=== PATIENT | male | born 1940 | race Caucasian/White ===

== ENCOUNTER 2016-08-28 05:46 | Inpatient (IN) | payer MEDICARE ==
[2016-08-28] MEDS ORDERED: METHYLPREDNISOLONE INJ 125 MG/2 ML SDV IV ONE (06:00)
[2016-08-28] MEDS ORDERED: IPRATROPIUM/ALBUTEROL 0.5-2.5 MG/3 ML AMPUL NEB ONE ×2 (06:00→07:26)
[2016-08-28] MEDS: ALBUTEROL SULFATE 0.083% NEB 2.5 MG/3 ML AMPUL NEB SCH ×2 (06:09→06:10)
--- NOTE | 2016-08-28 07:29 | ER Document Report ---
ED General - General Chief Complaint: Hip Injury Stated Complaint: FALL/HIP PAIN Mode of Arrival: Medic Information source: Patient Notes: 76-year-old male presents with complaints of right hip pain. Patient notes he had a vivid dream fell out of bed and landed on his hip. EMS noted rotation and shortening of the leg Patient admits to chronic smoking denies any new onset shortness of breath TRAVEL OUTSIDE OF THE [place] IN LAST 30 DAYS: No - HPI Onset: Just prior to arrival Onset/Duration: Sudden Quality of pain: Sharp Severity: Mild Pain Level: Denies Associated symptoms: Other Exacerbated by: Movement Relieved by: Denies Similar symptoms previously: No Recently seen / treated by doctor: No - Related Data Allergies/Adverse Reactions: ciprofloxacin [From Cipro] Allergy (Verified 08/30/14 11:49) Past Medical History - Social History Smoking Status: Current Every Day Smoker Cigarette use (# per day): Yes Chew tobacco use (# tins/day): No Smoking Education Provided: No Family History: Reviewed & Not Pertinent - Past Medical History Cardiac Medical History: Reports: Hx Congestive Heart Failure, Hx Hypercholesterolemia, Hx Hypertension Neurological Medical History: Denies: Hx Seizures Renal/ Medical History: Reports: Hx End Stage Renal Disease Psychiatric Medical History: Denies: Hx Depression Infectious Medical History: Reports: Hx C-Diff Past Surgical History: Reports: Hx Cardiac Catheterization, Hx Cardiac Surgery - CABG, Hx Genitourinary Surgery - urostomy, Hx Vascular Surgery - AAA repair - Immunizations Immunizations up to date: Yes Hx Diphtheria, Pertussis, Tetanus Vaccination: Yes Hx Pneumococcal Vaccination: 04/17/14 Review of Systems - Review of Systems Notes: REVIEW OF SYSTEMS: CONSTITUTIONAL : Denies fever, chills, or sweats. Denies recent illness. EENT: Denies eye, ear, throat, or mouth pain or symptoms. Denies nasal or sinus congestion or discharge. Denies throat, tongue, or mouth swelling or difficulty swallowing. CARDIOVASCULAR: Denies chest pain. Denies palpitations or racing or irregular heart beat. Denies ankle edema. RESPIRATORY: Denies cough, cold, or chest congestion. Denies shortness of breath, difficulty breathing, or wheezing. GASTROINTESTINAL: Denies abdominal pain or distention. Denies nausea, vomiting , or diarrhea. Denies blood in vomitus, stools, or per rectum. Denies black, tarry stools. Denies constipation. GENITOURINARY: Denies difficulty urinating, painful urination, burning, frequency, blood in urine, or discharge. MUSCULOSKELETAL: Admits to right hip pain SKIN: Denies rash, lesions or sores. HEMATOLOGIC : Denies easy bruising or bleeding. LYMPHATIC: Denies swollen, enlarged glands. NEUROLOGICAL: Denies confusion or altered mental status. Denies passing out or loss of consciousness. Denies dizziness or lightheadedness. Denies headache. Denies weakness or paralysis or loss of use of either side. Denies problems with gait or speech. Denies sensory loss, numbness, or tingling. Denies seizures. PSYCHIATRIC: Denies anxiety or stress. Denies depression, suicidal ideation, or homicidal ideation. ALL OTHER SYSTEMS REVIEWED AND NEGATIVE. Dictation was performed using [employer] [place] voice recognition software PHYSICAL EXAMINATION: GENERAL: Well-appearing, well-nourished and in no acute distress. HEAD: Atraumatic, normocephalic. EYES: Pupils equal round and reactive to light, extraocular movements intact, sclera anicteric, conjunctiva are normal. ENT: Nares patent, oropharynx clear without exudates. Moist mucous membranes. NECK: Normal range of motion, supple without lymphadenopathy LUNGS: Breath sounds clear to auscultation bilaterally and equal. No wheezes rales or rhonchi. HEART: Regular rate and rhythm without murmurs ABDOMEN: Soft, nontender, nondistended abdomen. No guarding, no rebound. No masses appreciated. Musculoskeletal: Right lower extremity is externally rotated shortened tenderness with palpation pulses intact NEUROLOGICAL: Cranial nerves grossly intact. Normal speech, normal gait. Normal sensory, motor exams PSYCH: Normal mood, normal affect. SKIN: Warm, Dry, normal turgor, no rashes or lesions noted. Physical Exam - Vital signs Vitals: Temp Pulse Resp BP Pulse Ox 98.3 F 83 18 149/63 H 88 L 08/28/16 06:00 08/28/16 06:00 08/28/16 06:00 08/28/16 06:00 08/28/16 06:00 Course - Re-evaluation Re-evalutation: 08/28/16 07:29 Patient has probable hip fracture, x-ray results pending at this time. He was noted to be satting 80% on room air, patient notes that this is normal for him, he will be given duo nebs and reevaluated 08/28/16 07:55 08/28/16 08:11 Hip fracture is noted, patient will be admitted to hospitalist service given comorbidities - Vital Signs Vital signs: Temp Pulse Resp BP Pulse Ox 98.3 F 83 18 149/63 H 88 L 08/28/16 06:00 08/28/16 06:00 08/28/16 06:00 08/28/16 06:00 08/28/16 06:00 - Diagnostic Test Radiology reviewed: Image reviewed, Reports reviewed Discharge - Discharge Clinical Impression: Chronic kidney disease, stage IV (severe) Fracture of hip Qualifiers: Encounter type: initial encounter Fracture type: closed Laterality: right Qualified Code(s): S72.001A - Fracture of unspecified part of neck of right femur, initial encounter for closed fracture Fall Qualifiers: Encounter type: initial encounter Qualified Code(s): W19.XXXA - Unspecified fall, initial encounter Condition: Stable Disposition: ADMITTED INPATIENT Admitting Provider: Hospitalist Unit Admitted: Telemetry
[2016-08-28] MEDS ORDERED: HYDROMORPHONE HCL INJ/PF 2 MG/ML AMPULE IV ONE (07:54)
[2016-08-28] MEDS ORDERED: ONDANSETRON HCL INJ/PF 4 MG/2 ML SDV IV ONE (08:20)
--- NOTE | 2016-08-28 08:22 | EKG REPORT ---
SEVERITY:- NORMAL ECG - SINUS RHYTHM : Confirmed by: Jessica Oreilly 28-Aug-2016 08:21:35
[2016-08-28 08:27] LABS: ABSOLUTE EOSINOPHILS # (AUTO) 0.1 10^3/uL (0.0-0.6); ABSOLUTE LYMPHOCYTES (AUTO) 0.9 10^3/uL (0.5-4.7); ABSOLUTE MONOCYTES (AUTO) 0.2 10^3/uL (0.1-1.4); ABSOLUTE NEUT (AUTO) 9.7 10^3/uL (1.7-8.2); BASOPHILS % (AUTO) 0.2 % (0-2); EOSINOPHILS % (AUTO) 0.6 % (0-6); HEMATOCRIT 35.4 % (37.9-51.0); HEMOGLOBIN 11.8 g/dL (13.5-17.0); LYMPHOCYTES % (AUTO) 8.1 % (13-45); MEAN CORPUSCULAR HEMOGLOBIN 31.8 pg (27.0-33.4); MEAN CORPUSCULAR HGB CONC 33.4 g/dL (32.0-36.0); MEAN CORPUSCULAR VOLUME 95 fl (80-97); MONOCYTES % (AUTO) 1.9 % (3-13); RED BLOOD COUNT 3.72 10^6/uL (4.35-5.55); RED CELL DISTRIBUTION WIDTH 13.8 % (11.5-14.0); SEGMENTED NEUTROPHILS % (AUTO) 89.2 % (42-78); WHITE BLOOD COUNT 10.9 10^3/uL (4.0-10.5)
[2016-08-28 08:43] LABS: ALANINE AMINOTRANSFERASE 30 U/L (21-72); ALBUMIN 3.8 g/dL (3.5-5.0); ALKALINE PHOSPHATASE 111 U/L (38-126); ANION GAP 13 (5-19); ASPARTATE AMINO TRANSFERASE 20 U/L (17-59); BILIRUBIN,TOTAL 0.5 mg/dL (0.2-1.3); BLOOD UREA NITROGEN 49 mg/dL (7-20); CALCIUM 8.2 mg/dL (8.4-10.2); CARBON DIOXIDE 27 mmol/L (22-30); CHLORIDE 106 mmol/L (98-107); CREATINE KINASE 108 U/L (55-170); CREATININE RESULT 4.67 mg/dL (0.52-1.25); GLUCOSE 165 mg/dL (75-110); POTASSIUM 4.8 mmol/L (3.6-5.0); SODIUM 145.6 mmol/L (137-145); TOTAL PROTEIN 6.6 g/dL (6.3-8.2)
[2016-08-28 08:51] LABS: CREATINE KINASE MB 4.41 ng/mL (<4.55)
[2016-08-28 08:55] LABS: TROPONIN I 0.023 ng/mL
[2016-08-28] MEDS ORDERED: ACETAMINOPHEN 325 MG TABLET PO PRN (10:13)
[2016-08-28] MEDS ORDERED: ONDANSETRON HCL INJ/PF 4 MG/2 ML SDV IV PRN (10:19)
[2016-08-28] MEDS ORDERED: LIDOCAINE 2% INJ-PF (20 MG/ML) 10 ML AMPUL ONE (10:21)
--- NOTE | 2016-08-28 10:36 | PDOC H&P ---
[id number] complains of: Hip pain and right History of Present Illness: TYLOR JIMENEZ is a 76 year old male with history of end-stage renal disease on dialysis, coronary artery disease, hypertension, hyperlipidemia presents to the hospital because of pain in the right hip. Patient was sleeping when he fell out of bed. He woke up with hip pain under right and therefore the patient called his family really was brought to the emergency room and noted fracture on the right hip. The patient's dialysis is every Sunday and Sunday. He denies shortness of breath or chest pain at all. Likewise no chills or fever. He has chronic cough on and off. He takes inhalers at home but was never told he has COPD. Past Medical History Past Medical History: Medication reconciliation pending verification from the patient's pharmacist. Cardiac Medical History: Reports: Congestive Heart Failure, Coronary Artery Disease, Hyperlipidema, Hypertension, Peripheral Vascular Disease Pulmonary Medical History: Reports: Chronic Obstructive Pulmonary Disease (COPD ) - Possible Neurological Medical History: Denies: Seizures Renal/ Medical History: Reports: End Stage Renal Disease - On hemodialysis Sunday and Sunday Malignancy Medical History: Reports: Renal (Kidney) Cancer, Other - Prostate Psychiatric Medical History: Denies: Depression Infectious Medical History: Reports: Clostridium Difficile Past Surgical History Past Surgical History: Reports: Cardiac Catheterization, Vascular Surgery - AAA repair, Other - Nephrostomy tube placement Social History Information Source: Patient Smoking Status: Former Smoker Frequency of Alcohol Use: None Hx Recreational Drug Use: No Drugs: None Hx Prescription Drug Abuse: No Family History Family History: None Parental Family History Reviewed: Yes Children Family History Reviewed: Yes Sibling(s) Family History Reviewed.: Yes Medication/Allergy Allergies/Adverse Reactions: ciprofloxacin [From Cipro] Allergy (Verified 08/30/14 11:49) Review of Systems Constitutional: ABSENT: chills, fever(s), headache(s), night sweats, weight gain , weight loss Eyes: ABSENT: visual disturbances Ears: ABSENT: hearing changes Nose, Mouth, and Throat: ABSENT: mouth pain, sore throat Cardiovascular: ABSENT: chest pain, dyspnea on exertion, edema, orthropnea, palpitations Respiratory: PRESENT: cough - Chronic. ABSENT: hemoptysis Gastrointestinal: ABSENT: abdominal pain, bloating, constipation, diarrhea, hematemesis, hematochezia, melena, nausea, vomiting Genitourinary: PRESENT: other - has nephrostomy bag. ABSENT: dysuria, hematuria Musculoskeletal: ABSENT: joint swelling Integumentary: ABSENT: rash, wounds Neurological: ABSENT: abnormal gait, abnormal speech, confusion, dizziness, focal weakness, syncope Psychiatric: ABSENT: anxiety, depression, homidical ideation, suicidal ideation Endocrine: ABSENT: cold intolerance, heat intolerance, polydipsia, polyphagia, polyuria Hematologic/Lymphatic: ABSENT: easy bleeding, easy bruising Physical Exam Vital Signs: Temp Pulse Resp BP Pulse Ox 98.3 F 83 18 149/63 H 88 L 08/28/16 06:00 08/28/16 06:00 08/28/16 06:00 08/28/16 06:00 08/28/16 06:00 General appearance: PRESENT: no acute distress, cooperative. ABSENT: mild distress, severe distress Head exam: PRESENT: atraumatic, normocephalic Eye exam: PRESENT: conjunctiva pale, EOMI, PERRLA - Sluggish. ABSENT: scleral icterus Ear exam: PRESENT: normal external ear exam. ABSENT: drainage Mouth exam: PRESENT: moist, neck supple, tongue midline Neck exam: ABSENT: carotid bruit, JVD, lymphadenopathy, thyromegaly Respiratory exam: PRESENT: clear to auscultation jenni. ABSENT: rales, rhonchi, wheezes Cardiovascular exam: PRESENT: RRR, +S1, +S2. ABSENT: diastolic murmur, gallop, rubs, systolic murmur Pulses: PRESENT: normal dorsalis pedis pul Vascular exam: PRESENT: normal capillary refill GI/Abdominal exam: PRESENT: normal bowel sounds, soft, other - Nephrostomy bag in place on the right. ABSENT: distended, guarding, mass, organolmegaly, rebound, tenderness Rectal exam: PRESENT: deferred Extremities exam: PRESENT: full ROM. ABSENT: calf tenderness, clubbing, pedal edema Neurological exam: PRESENT: alert, awake, oriented to person, oriented to place , oriented to time, oriented to situation Psychiatric exam: PRESENT: appropriate affect, normal mood. ABSENT: homicidal ideation, suicidal ideation Skin exam: PRESENT: dry, intact, warm. ABSENT: cyanosis, rash Results Impressions: Hip/Pelvis X-Ray 08/28/16 00:00 IMPRESSION: Subcapital fracture right femoral neck. Chest X-Ray 08/28/16 06:00 IMPRESSION: Diffuse bronchitis. Assessment & Plan - Diagnosis (1) Hip fracture Qualifiers: Encounter type: initial encounter Fracture type: closed Laterality : right Qualified Code(s): S72.001A - Fracture of unspecified part of neck of right femur, initial encounter for closed fracture Is this a current diagnosis for this admission?: Yes (2) Thrombocytopenia Is this a current diagnosis for this admission?: Yes (3) Abnormal chest x-ray Is this a current diagnosis for this admission?: Yes (4) Hypoxemia Is this a current diagnosis for this admission?: Yes (5) Anemia, chronic disease Is this a current diagnosis for this admission?: Yes (6) Coronary artery disease Qualifiers: Coronary Disease-Associated Artery/Lesion type: [place] artery [place] vs. transplanted heart: [place] heart Associated angina: without angina Qualified Code(s): I25.10 - Atherosclerotic heart disease of [place] coronary artery without angina pectoris Is this a current diagnosis for this admission?: Yes (7) Gout Qualifiers: Gout site: unspecified site Gout etiology: unspecified cause Chronicity: unspecified Qualified Code(s): M10.9 - Gout, unspecified Is this a current diagnosis for this admission?: Yes (8) Hyperlipidemia Qualifiers: Hyperlipidemia type: unspecified Qualified Code(s): E78.5 - Hyperlipidemia, unspecified Is this a current diagnosis for this admission?: Yes (9) Hypertension Qualifiers: Hypertension type: essential hypertension Qualified Code(s): I10 - Essential (primary) hypertension Is this a current diagnosis for this admission?: Yes (10) PVD (peripheral vascular disease) Is this a current diagnosis for this admission?: Yes (11) History of renal cell cancer Is this a current diagnosis for this admission?: Yes (12) COPD (chronic obstructive pulmonary disease) Qualifiers: COPD type: unspecified COPD Qualified Code(s): J44.9 - Chronic obstructive pulmonary disease, unspecified Is this a current diagnosis for this admission?: Yes - Time Time Spent: 30 to 50 Minutes - Plan Summary Plan Summary: Patient will be admitted to telemetry. We will consult orthopedics for the hip fracture. We will consult nephrology for continued dialysis. I will give the patient bronchodilators, an oral antibiotic. Patient is not symptomatic in terms of acute infection. We will continue to monitor. We will give DVT prophylaxis with heparin and monitor platelet count. Supplemental oxygen will be given. Based on the revised cardiac index the patient's risk for cardiac event is 6.6% due to history of coronary artery disease and renal failure. No CHF , diabetes , or stroke/TIA reported by the patient. Further testing depends and admission evaluation as outlined above.
[2016-08-28] MEDS ORDERED: AMOXICILLIN TR/POT CLAVULANATE 500-125 MG TAB PO ONE ×2 (11:00→19:00)
[2016-08-28] MEDS ORDERED: LEVOFLOXACIN 750 MG TABLET PO SCH (11:00)
--- NOTE | 2016-08-28 13:00 | PDOC CONSULTATION ---
Consultation Consult Date: 08/28/16 Attending physician:: PARAG LEROY Consult reason:: Right hip pain History of Present Illness Admission Date/PCP: 08/28/16 10:13 BRIAN RODRIGUEZ MD History of Present Illness: TYLOR JIMENEZ is a 76 year old male with history of end-stage renal disease on dialysis, coronary artery disease, hypertension, hyperlipidemia presents to the hospital because of pain in the right hip. Patient was sleeping when he fell out of bed. He woke up with hip pain under right and therefore the patient called his son so they could get him out of bed. Patient is a community ambulator and requires a cane. Lives at home with his . Currently he states his pain is tolerable but is worse with motion. Pain increases to 7/10 with motion. Denies numbness or tingling. Past Medical History Cardiac Medical History: Reports: Congestive Heart Failure, Coronary Artery Disease, Hyperlipidema, Hypertension, Peripheral Vascular Disease Pulmonary Medical History: Reports: Chronic Obstructive Pulmonary Disease (COPD ) - Possible Neurological Medical History: Denies: Seizures Renal/ Medical History: Reports: End Stage Renal Disease - On hemodialysis Sunday and Sunday Malignancy Medical History: Reports: Renal (Kidney) Cancer, Other - Prostate Psychiatric Medical History: Denies: Depression Infectious Medical History: Reports: Clostridium Difficile Past Surgical History Past Surgical History: Reports: Cardiac Catheterization, Vascular Surgery - AAA repair, Other - Nephrostomy tube placement Social History Smoking Status: Former Smoker Frequency of Alcohol Use: None Hx Recreational Drug Use: No Drugs: None Hx Prescription Drug Abuse: No Family History Family History: None Parental Family History Reviewed: No Children Family History Reviewed: No Sibling(s) Family History Reviewed.: No Medication/Allergy Allergies/Adverse Reactions: ciprofloxacin [From Cipro] Allergy (Verified 08/30/14 11:49) Review of Systems Constitutional: ABSENT: chills, fever(s), headache(s), weight gain, weight loss Eyes: ABSENT: visual disturbances Ears: PRESENT: other - difficulty hearing. ABSENT: hearing changes Cardiovascular: ABSENT: chest pain, dyspnea on exertion, edema, orthropnea, palpitations Respiratory: PRESENT: cough. ABSENT: hemoptysis Gastrointestinal: PRESENT: other - Ileostomy. ABSENT: abdominal pain, constipation, diarrhea, hematemesis, hematochezia, nausea, vomiting Genitourinary: PRESENT: other - Dialysis. ABSENT: dysuria, hematuria Musculoskeletal: PRESENT: as per HPI Integumentary: ABSENT: rash, wounds Neurological: ABSENT: abnormal gait, abnormal speech, confusion, dizziness, focal weakness, syncope Psychiatric: ABSENT: anxiety, depression, homidical ideation, suicidal ideation Endocrine: ABSENT: cold intolerance, heat intolerance, menstrual abnormalities, polydipsia, polyuria Hematologic/Lymphatic: ABSENT: easy bleeding, easy bruising, lymphadenopathy Physical Exam Vital Signs: Temp Pulse Resp BP Pulse Ox 98.3 F 83 13 137/72 H 93 08/28/16 06:00 08/28/16 06:00 08/28/16 10:02 08/28/16 11:02 08/28/16 11:02 General appearance: PRESENT: no acute distress, well-developed, well-nourished Head exam: PRESENT: atraumatic, normocephalic Eye exam: PRESENT: conjunctiva pink, EOMI, PERRLA. ABSENT: scleral icterus Ear exam: PRESENT: normal external ear exam, other - difficulty hearing Mouth exam: PRESENT: moist, tongue midline Neck exam: PRESENT: full ROM. ABSENT: carotid bruit, JVD, lymphadenopathy, thyromegaly Respiratory exam: PRESENT: decreased breath sounds, unlabored, wheezes Cardiovascular exam: PRESENT: RRR, other - previous cardiac surgical scar. ABSENT: diastolic murmur, rubs, systolic murmur Pulses: PRESENT: normal dorsalis pedis pul, +2 pedal pulses bilateral Vascular exam: PRESENT: normal capillary refill GI/Abdominal exam: PRESENT: normal bowel sounds, soft, other - Ileostomy. ABSENT: distended, guarding, mass, organolmegaly, rebound, tenderness Rectal exam: PRESENT: deferred Musculoskeletal exam: PRESENT: other - Right hip: Shortened externally rotated positive logroll. Intact plantar flexion/dorsiflexion. Dorsalis pedis pulse 2+ . No calf tenderness. No sensory deficits. Neurological exam: PRESENT: alert, awake, oriented to person, oriented to place , oriented to time, oriented to situation, CN II-XII grossly intact. ABSENT: motor sensory deficit Psychiatric exam: PRESENT: appropriate affect, normal mood. ABSENT: homicidal ideation, suicidal ideation Skin exam: PRESENT: dry, intact, warm. ABSENT: cyanosis, rash Results Impressions: Hip/Pelvis X-Ray 08/28/16 00:00 IMPRESSION: Subcapital fracture right femoral neck. Chest X-Ray 08/28/16 06:00 IMPRESSION: Diffuse bronchitis. Status: Image reviewed by me - I have reviewed patient's radiographs which demonstrate a displaced right femoral neck fracture. Assessment & Plan - Diagnosis (1) Fracture of femoral neck, right, closed Qualifiers: Encounter type: initial encounter Qualified Code(s): S72.001A - Fracture of unspecified part of neck of right femur, initial encounter for closed fracture Is this a current diagnosis for this admission?: YesPlan: I have discussed treatment options with the patient given his include ambulatory status and [place] along with good mentation I have recommended operative intervention which includes right hip hemiarthroplasty. Patient does have fairly extensive medical history including cardiac and renal disease and thus he is at high risk but given the above reasons I do feel operative intervention benefits outweigh the risks. Risks include anesthetic complications, excessive bleeding, infection, injury to surrounding nerves, vessels and tendons, bruising, healing difficulties, scar formation, posttraumatic arthritis dislocation and any unforseen complication.
[2016-08-28] MEDS: IPRATROPIUM/ALBUTEROL 0.5-2.5 MG/3 ML AMPUL NEB SCH ×2 (13:51→20:27)
[2016-08-28] MEDS: HEPARIN SOD (PORCINE) 5,000 UNIT/ML 1 ML SYRINGE SUBCUT SCH ×2 (16:57→21:24)
[2016-08-28 17:30] LABS: PROTHROMBIN TIME 12.8 SEC (11.4-15.4)
[2016-08-28 17:31] LABS: PARTIAL THROMBOPLASTIN TIME 30.1 SEC (23.5-35.8)
[2016-08-28] MEDS ORDERED: HYDROMORPHONE HCL INJ/PF 2 MG/ML AMPULE IV PRN (17:59)
[2016-08-28] MEDS ORDERED: ALBUTEROL SULFATE HFA (90 MCG/PUFF) 8 GM MDI (1 MDI/ER DISP) IH PRN (18:00)
--- NOTE | 2016-08-28 18:26 | PDOC CONSULTATION ---
Consultation Consult Date: 08/28/16 Attending physician:: PARAG GUERRERO Consult reason:: I was asked by Dr. Guerrero to see this patient to supervise hemodialysis treatment well admitted in the hospital. History of Present Illness Admission Date/PCP: 08/28/16 10:13 BRIAN RODRIGUEZ MD History of Present Illness: TYLOR JIMENEZ is a 76 year old male with history of end-stage renal disease on dialysis, coronary artery disease, hypertension, hyperlipidemia presents to the hospital because of pain in the right hip. Patient was sleeping when he fell out of bed. He woke up with hip pain under right and therefore the patient called his family really was brought to the emergency room and noted fracture on the right hip. The patient's dialysis is every Sunday and Sunday. He denies shortness of breath or chest pain at all. Likewise no chills or fever. He has chronic cough on and off. He takes inhalers at home but was never told he has COPD. Today is the patient's regular hemodialysis day. We dialyzed the patient today. I saw the patient at the end of his dialysis treatment. He tolerated dialysis well. He said he has pain on motion over his right hip. Otherwise he claims that his pain is minimal when he is not moving it. Patient otherwise doesn't have any other complaints. 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 Musculoskeltal Medical History: Reports: Gout Infectious Medical History: Reports: Clostridium Difficile Hematology Medical History: Reports Anemia of Chronic Kidney Disease Past Surgical History Past Surgical History: Reports: Cardiac Catheterization, Coronary Artery Bypass Graft, Cystectomy, Dialysis Access Surgery AVF, Vascular Surgery - AAA repair, Other - Nephrostomy tube placement, creation of ileal conduit , prostatectomy Social History Information Source: Outside Facility Records Lives with: Spouse/Significant other Smoking Status: Former Smoker Frequency of Alcohol Use: None Hx Recreational Drug Use: No Drugs: None Hx Prescription Drug Abuse: No Family History Family History: Malignancy - Bone cancer and his father Parental Family History Reviewed: Yes Children Family History Reviewed: No Sibling(s) Family History Reviewed.: No Medication/Allergy Home Medications: Albuterol Sulfate [Proair HFA] 2 puff IH Q6HP PRN 08/28/16 Atorvastatin Calcium [Lipitor 20 mg Tablet] 20 mg PO QHS 08/28/16 B Complex & C No.20/Folic Acid [Nephrocaps Softgel] 1 mg PO QHS 08/28/16 Isosorbide Dinitrate [Isordil Titradose 20 mg Tablet] 20 mg PO Q12 08/28/16 L. Rhamnosus GG/Inulin [Culturelle Capsule] 1 each PO DAILY 08/28/16 Magnesium Oxide [Mag-Ox 400 mg Tablet] 400 mg PO DAILY 08/28/16 Omeprazole 20 mg PO DAILY 08/28/16 Sodium Bicarbonate [Sodium Bicarbonate 650 mg Tablet] 650 mg PO Q12 08/28/16 Allergies/Adverse Reactions: ciprofloxacin [From Cipro] Allergy (Verified 08/30/14 11:49) Review of Systems All systems: reviewed and no additional remarkable complaints except as stated Review of Systems: Constitutional: ABSENT: chills, fatigue, fever(s), headache(s), weight gain, weight loss Eyes: ABSENT: visual disturbances Ears: ABSENT: hearing changes Cardiovascular: ABSENT: chest pain, dyspnea on exertion, edema, orthropnea, palpitations Respiratory: ABSENT: cough, dyspnea, hemoptysis Gastrointestinal: ABSENT: abdominal pain, constipation, diarrhea, hematemesis, hematochezia, nausea, vomiting Genitourinary: ABSENT: dysuria, hematuria Musculoskeletal: ABSENT: joint swelling, admits right hip pain on movement Integumentary: ABSENT: rash, wounds Neurological: ABSENT: abnormal gait, abnormal speech, confusion, dizziness, focal weakness, numbness, syncope Psychiatric: ABSENT: anxiety, depression Endocrine: ABSENT: cold intolerance, heat intolerance, polydipsia, polyuria Hematologic/Lymphatic: ABSENT: easy bleeding, easy bruising, lymphadenopathy Physical Exam Vital Signs: Temp Pulse Resp BP Pulse Ox 98.3 F 95 16 147/73 H 94 08/28/16 12:39 08/28/16 13:51 08/28/16 13:51 08/28/16 12:39 08/28/16 13:51 Intake & Output 08/27/16 08/28/16 08/29/16 06:59 06:59 06:59 Weight 85.3 kg Vital signs on dialysis when I saw him: Blood pressure 133/73, heart rate of 92 , blood flow rate of 450 mL per minute, dialysate flow rate of 600 minimal per minute. Exam: General appearance: no acute distress, cooperative, well-developed, well- nourished Head exam: PRESENT: atraumatic, normocephalic Eye exam: PRESENT: Conjunctiva slightly pale, EOMI, PERRLA. ABSENT: conjunctival injection, scleral icterus Mouth exam: PRESENT: moist, neck supple, tongue midline Neck exam: PRESENT: full ROM. ABSENT: carotid bruit, JVD, lymphadenopathy, thyromegaly Respiratory exam: PRESENT: clear to auscultation bilaterally. ABSENT: rales, rhonchi, stridor, wheezes Cardiovascular exam: PRESENT: RRR, +S1, +S2. ABSENT: systolic murmur Pulses: PRESENT: normal radial pulses, normal dorsalis pedis pulses GI/Abdominal exam: PRESENT: normal bowel sounds, soft. Urostomy bag in place in the right lower quadrant ABSENT: guarding, mass, tenderness Rectal exam: deferred Extremities exam: PRESENT: full ROM. ABSENT: calf tenderness, pedal edema Musculoskeletal: PRESENT: full ROM. ABSENT: deformity Neurological exam: PRESENT: alert, Awake, Oriented to person, Oriented to place , Oriented to time, reflexes normal, CN II-XII grossly intact. ABSENT: motor sensory deficit Psychiatric exam: PRESENT: appropriate affect, normal mood. ABSENT: homicidal ideation, suicidal ideation Skin exam: PRESENT: intact, dry, warm. ABSENT: rash Results Laboratory Results: Laboratory 08/28/16 08/28/16 08/28/16 08:10 08:10 08:10 WBC 10.9 H RBC 3.72 L Hgb 11.8 L Hct 35.4 L MCV 95 MCH 31.8 MCHC 33.4 RDW 13.8 Plt Count 144 L Seg Neutrophils % 89.2 H Lymphocytes % 8.1 L Monocytes % 1.9 L Eosinophils % 0.6 Basophils % 0.2 Absolute Neutrophils 9.7 H Absolute Lymphocytes 0.9 Absolute Monocytes 0.2 Absolute Eosinophils 0.1 Absolute Basophils 0.0 PT INR APTT Sodium 145.6 H Potassium 4.8 Chloride 106 Carbon Dioxide 27 Anion Gap 13 BUN 49 H Creatinine 4.67 H Est GFR ( Amer) 15 L Est GFR (Non-Af Amer) 12 L Glucose 165 H Calcium 8.2 L Total Bilirubin 0.5 Direct Bilirubin 0.0 AST 20 ALT 30 Alkaline Phosphatase 111 Creatine Kinase 108 CK-MB (CK-2) 4.41 Troponin I 0.023 Total Protein 6.6 Albumin 3.8 08/28/16 17:00 WBC RBC Hgb Hct MCV MCH MCHC RDW Plt Count Seg Neutrophils % Lymphocytes % Monocytes % Eosinophils % Basophils % Absolute Neutrophils Absolute Lymphocytes Absolute Monocytes Absolute Eosinophils Absolute Basophils PT 12.8 INR 0.93 APTT 30.1 Sodium Potassium Chloride Carbon Dioxide Anion Gap BUN Creatinine Est GFR ( Amer) Est GFR (Non-Af Amer) Glucose Calcium Total Bilirubin Direct Bilirubin AST ALT Alkaline Phosphatase Creatine Kinase CK-MB (CK-2) Troponin I Total Protein Albumin Impressions: Hip/Pelvis X-Ray 08/28/16 00:00 IMPRESSION: Subcapital fracture right femoral neck. Chest X-Ray 08/28/16 06:00 IMPRESSION: Diffuse bronchitis. Assessment & Plan - Diagnosis (1) End-stage renal disease on hemodialysis Is this a current diagnosis for this admission?: YesPlan: We did dialysis today for 3 hours, using the patient's AV fistula, with 2 potassium bath, blood flow rate of or 50 mL per minute, dialysate flow rate of 600 mL per minute, ultrafiltration 500 mL, no heparin and no Procrit during dialysis. We will continue to to supervise the patient's hemodialysis while admitted here in the hospital. (2) Fracture of femoral neck, right, closed Qualifiers: Encounter type: initial encounter Qualified Code(s): S72.001A - Fracture of unspecified part of neck of right femur, initial encounter for closed fracture Is this a current diagnosis for this admission?: YesPlan: Patient is scheduled to go for surgery tomorrow care of orthopedics. (3) Anemia, chronic disease Is this a current diagnosis for this admission?: Yes (4) Hypertension Qualifiers: Hypertension type: essential hypertension Qualified Code(s): I10 - Essential (primary) hypertension Is this a current diagnosis for this admission?: YesPlan: Well controlled - Notes Notes: Thank you very much for this consultation. I will follow the patient with you. - Time Time Spent: 50 to 70 Minutes
[2016-08-28] MEDS: DOCUSATE SODIUM 100 MG CAPSULE PO SCH (18:30)
[2016-08-28] MEDS: OXYCODONE-ACETAMINOPHEN 5-325 MG TABLET PO PRN (18:30)
[2016-08-28] MEDS ORDERED: ALBUTEROL SULFATE HFA (90 MCG/PUFF) 200 PUFF/8.5 GM MDI IH PRN (20:00)
[2016-08-28] MEDS: ISOSORBIDE DINITRATE 20 MG TABLET PO SCH (21:23)
[2016-08-28] MEDS: ATORVASTATIN CALCIUM 20 MG TABLET PO SCH (21:24)
[2016-08-28] MEDS: SODIUM BICARBONATE 650 MG TABLET PO SCH (21:24)
[2016-08-28] MEDS ORDERED: AMOXICILLIN TR/POT CLAVULANATE 500-125 MG TAB PO SCH (22:00)
[2016-08-29] MEDS: IPRATROPIUM/ALBUTEROL 0.5-2.5 MG/3 ML AMPUL NEB SCH ×4 (02:38→19:58)
[2016-08-29] MEDS: LANSOPRAZOLE 30 MG TAB.RAP.DR PO SCH (05:18)
[2016-08-29] MEDS: HEPARIN SOD (PORCINE) 5,000 UNIT/ML 1 ML SYRINGE SUBCUT SCH ×3 (05:18→21:31)
[2016-08-29 05:43] LABS: ABSOLUTE LYMPHOCYTES (AUTO) 1.4 10^3/uL (0.5-4.7); ABSOLUTE MONOCYTES (AUTO) 0.9 10^3/uL (0.1-1.4); ABSOLUTE NEUT (AUTO) 10.9 10^3/uL (1.7-8.2); BASOPHILS % (AUTO) 0.1 % (0-2); EOSINOPHILS % (AUTO) 0.1 % (0-6); HEMATOCRIT 32.9 % (37.9-51.0); HEMOGLOBIN 11.1 g/dL (13.5-17.0); HGB HCT DIFFERENCE 0.4; LYMPHOCYTES % (AUTO) 10.8 % (13-45); MEAN CORPUSCULAR HEMOGLOBIN 31.9 pg (27.0-33.4); MEAN CORPUSCULAR HGB CONC 33.7 g/dL (32.0-36.0); MEAN CORPUSCULAR VOLUME 95 fl (80-97); MONOCYTES % (AUTO) 6.7 % (3-13); RED BLOOD COUNT 3.48 10^6/uL (4.35-5.55); RED CELL DISTRIBUTION WIDTH 14.3 % (11.5-14.0); SEGMENTED NEUTROPHILS % (AUTO) 82.3 % (42-78); WHITE BLOOD COUNT 13.2 10^3/uL (4.0-10.5)
[2016-08-29 06:06] LABS: ANION GAP 11 (5-19); BLOOD UREA NITROGEN 37 mg/dL (7-20); CALCIUM 8.2 mg/dL (8.4-10.2); CARBON DIOXIDE 33 mmol/L (22-30); CHLORIDE 98 mmol/L (98-107); CREATININE RESULT 3.55 mg/dL (0.52-1.25); GLUCOSE 131 mg/dL (75-110); POTASSIUM 4.4 mmol/L (3.6-5.0); SODIUM 141.7 mmol/L (137-145)
[2016-08-29] MEDS: OXYCODONE-ACETAMINOPHEN 5-325 MG TABLET PO PRN ×2 (09:24→21:30)
[2016-08-29] MEDS: AMOXICILLIN TR/POT CLAVULANATE 500-125 MG TAB PO SCH (09:25)
[2016-08-29] MEDS: ASPIRIN 81 MG TABLET, CHEWABLE PO SCH (09:25)
[2016-08-29] MEDS: ISOSORBIDE DINITRATE 20 MG TABLET PO SCH ×2 (09:25→21:31)
[2016-08-29] MEDS: SODIUM BICARBONATE 650 MG TABLET PO SCH (09:25)
[2016-08-29] MEDS: DOCUSATE SODIUM 100 MG CAPSULE PO SCH ×2 (09:25→18:37)
--- NOTE | 2016-08-29 11:39 | PDOC PROGRESS REPORT ---
Subjective Progress Note for:: 08/29/16 Subjective:: Patient's pain is better controlled. Less coughing. Denies any PND nor orthopnea. No shortness of breath or chest pain. Denies any chills or fever. No diarrhea and nausea nor vomiting. Physical Exam Vital Signs: Temp Pulse Resp BP Pulse Ox 98.2 F 70 20 134/63 H 97 08/29/16 11:04 08/29/16 11:04 08/29/16 11:04 08/29/16 11:04 08/29/16 11:04 Intake & Output 08/28/16 08/29/16 08/30/16 06:59 06:59 06:59 Intake Total 1115 Output Total 870 Balance 245 Weight 86.6 kg General appearance: PRESENT: no acute distress, cooperative Head exam: PRESENT: normocephalic Eye exam: PRESENT: EOMI Mouth exam: PRESENT: moist, neck supple Neck exam: ABSENT: JVD Respiratory exam: PRESENT: clear to auscultation jenni. ABSENT: rhonchi, wheezes Cardiovascular exam: PRESENT: RRR. ABSENT: gallop GI/Abdominal exam: PRESENT: soft. ABSENT: distended, tenderness Extremities exam: PRESENT: other - Trace edema Neurological exam: PRESENT: alert, awake, oriented to situation Skin exam: PRESENT: dry, warm. ABSENT: cyanosis Results Laboratory Results: 08/29/16 05:14 08/29/16 05:14 08/29/16 08/29/16 05:14 05:14 WBC 13.2 H RBC 3.48 L Hgb 11.1 L Hct 32.9 L MCV 95 MCH 31.9 MCHC 33.7 RDW 14.3 H Plt Count 159 Seg Neutrophils % 82.3 H Lymphocytes % 10.8 L Monocytes % 6.7 Eosinophils % 0.1 Basophils % 0.1 Absolute Neutrophils 10.9 H Absolute Lymphocytes 1.4 Absolute Monocytes 0.9 Absolute Eosinophils 0.0 Absolute Basophils 0.0 Sodium 141.7 Potassium 4.4 Chloride 98 Carbon Dioxide 33 H Anion Gap 11 BUN 37 H Creatinine 3.55 H Est GFR ( Amer) 20 L Est GFR (Non-Af Amer) 17 L Glucose 131 H Calcium 8.2 L Impressions: Hip/Pelvis X-Ray 08/28/16 00:00 IMPRESSION: Subcapital fracture right femoral neck. Chest X-Ray 08/28/16 06:00 IMPRESSION: Diffuse bronchitis. Assessment & Plan - Diagnosis (1) Hip fracture Qualifiers: Encounter type: initial encounter Fracture type: closed Laterality : right Qualified Code(s): S72.001A - Fracture of unspecified part of neck of right femur, initial encounter for closed fracture Is this a current diagnosis for this admission?: Yes (2) Thrombocytopenia Is this a current diagnosis for this admission?: Yes (3) Abnormal chest x-ray Is this a current diagnosis for this admission?: Yes (4) Hypoxemia Is this a current diagnosis for this admission?: Yes (5) Anemia, chronic disease Is this a current diagnosis for this admission?: Yes (6) Coronary artery disease Qualifiers: Coronary Disease-Associated Artery/Lesion type: [place] artery [place] vs. transplanted heart: [place] heart Associated angina: without angina Qualified Code(s): I25.10 - Atherosclerotic heart disease of [place] coronary artery without angina pectoris Is this a current diagnosis for this admission?: Yes (7) Gout Qualifiers: Gout site: unspecified site Gout etiology: unspecified cause Chronicity: unspecified Qualified Code(s): M10.9 - Gout, unspecified Is this a current diagnosis for this admission?: Yes (8) Hyperlipidemia Qualifiers: Hyperlipidemia type: unspecified Qualified Code(s): E78.5 - Hyperlipidemia, unspecified Is this a current diagnosis for this admission?: Yes (9) Hypertension Qualifiers: Hypertension type: essential hypertension Qualified Code(s): I10 - Essential (primary) hypertension Is this a current diagnosis for this admission?: Yes (10) PVD (peripheral vascular disease) Is this a current diagnosis for this admission?: Yes (11) History of renal cell cancer Is this a current diagnosis for this admission?: Yes (12) COPD (chronic obstructive pulmonary disease) Qualifiers: COPD type: unspecified COPD Qualified Code(s): J44.9 - Chronic obstructive pulmonary disease, unspecified Is this a current diagnosis for this admission?: Yes - Time Time Spent with patient: 15-24 minutes - Plan Summary Plan Summary: We are going to do a follow-up chest x-ray postdialysis. If the chest x-ray improved, likely finding on initial x-ray from pulmonary vascular congestion brought about by end-stage renal disease requiring dialysis, and therefore we can stop the antibiotic. Patient is awaiting hip surgery. Risk factor include coronary artery disease, and elevated creatinine which bring the patient's risk of 6.6% according to the revised cardiac index protocol. Continue supportive care for now. Monitor WBC. Appreciate orthopedic, and nephrology help.
[2016-08-29] MEDS ORDERED: BUPIVACAINE INJ/PF LIPOSOME/PF 266 MG/20 ML SDV ONE (13:59)
[2016-08-29] MEDS ORDERED: THROMBIN (BOVINE) 5000 UNIT EPITAXIS KIT ONE (13:59)
[2016-08-29] MEDS ORDERED: THROMBIN (BOVINE) TOPICAL 20000 UNIT VIAL ONE (13:59)
[2016-08-29] MEDS ORDERED: BACITRACIN INJ 50,000 UNIT VIAL ONE (13:59)
[2016-08-29] MEDS ORDERED: CEFAZOLIN INJ 1 GM VIAL ONE (14:32)
[2016-08-29] MEDS ORDERED: FENTANYL CITRATE INJ/PF 100 MCG/2 ML AMPUL ONE (14:34)
[2016-08-29] MEDS ORDERED: MIDAZOLAM 2 MG/2 ML INJ ONE (14:34)
[2016-08-29] MEDS ORDERED: EPHEDRINE SULFATE INJ 50 MG/1 ML AMPULE ONE (14:35)
[2016-08-29] MEDS ORDERED: PROPOFOL INJ 200 MG/20 ML VIAL IV ONE (14:35)
[2016-08-29] MEDS ORDERED: DEXMEDETOMIDINE INJ 80 MCG/20 ML VIAL IV ONE (14:35)
[2016-08-29] MEDS ORDERED: KETAMINE HCL INJ 500 MG/10 ML VIAL ONE (15:10)
[2016-08-29] MEDS ORDERED: DIPHENHYDRAMINE HCL 50 MG/ML VIAL IV PRN (15:48)
[2016-08-29] MEDS ORDERED: PROMETHAZINE HCL INJ 25 MG/1 ML VIAL IV PRN (15:48)
[2016-08-29] MEDS ORDERED: MORPHINE SULFATE 10 MG/ML INJ IV PRN (15:48)
[2016-08-29] MEDS ORDERED: MEPERIDINE HCL/PF INJ 25 MG/1 ML DISP.SYRIN IV PRN (15:48)
[2016-08-29] MEDS ORDERED: FENTANYL CITRATE INJ/PF 100 MCG/2 ML AMPUL IV PRN ×3 (15:48)
[2016-08-29] MEDS ORDERED: RINGERS SOLUTION,LACTATED 1,000 ML IV PRN (17:28)
[2016-08-29] MEDS ORDERED: ALBUTEROL SULFATE 0.083% NEB 2.5 MG/3 ML AMPUL NEB ONE (17:32)
--- NOTE | 2016-08-29 17:32 | Operative Report ---
Operative Report DATE OF SURGERY: 08/29/16 PREOPERATIVE DIAGNOSIS: Right Femoral Neck Fracture POSTOPERATIVE DIAGNOSIS: Same OPERATION: Right Hip Hemiarthroplasty SURGEON: CARMEL WEATHERS ANESTHESIA: Spinal COMPLICATIONS: None ESTIMATED BLOOD LOSS: 100cc PROCEDURE: Indication for above procedure: 76-year-old male who sustained a fall onto his right hip out of bed. Patient was brought to the emergency room where x-rays demonstrated a femoral neck fracture. I discussed with the patient and family operative versus nonoperative intervention along with risks and benefits. After verbalized understanding and patient consented for operative treatment. Procedure In Detail: Patient was seen and evaluated in the preoperative holding area. The RIGHT lower extremity was initialized and marked. Patient received 2g of Ancef IV for bacterial prophylaxis. Patient was taken back to the operative room where transferred to the operative table and placed under spinal anesthesia. Once they were adequately anesthetized patient was placed in the lateral position an axillary roll was placed in nonoperative left lower extremity was carefully padded.. A surgical team debriefing was performed ensuring all instrumentation was available, the surgical procedure was discussed with possible concerns reviewed. The upper extremity was prepped with chlor prep draped in a sterile fashion. A timeout was done identifying correct patient, procedure and extremity everyone in attendance agree with this and verbalized no concerns. A posterior skin incision was made just posterior to the greater trochanter. Dissection was done down to the gluteus amie and iliotibial band fascia this was split in line with the skin incision. Any peripheral vasculature was carefully coagulated. A Charley retractor was placed after palpation of the sciatic nerve and the sciatic nerve was safely retracted from the wound throughout the entirety of the case. I then identified the external rotators with the use of a Bovie this was carefully elevated off along with underlying capsule from the neck in a T-shaped capsulotomy was made just superior to the piriformis. This was then tagged. The femoral neck was identified and approximately 1 fingerbreadth above the lesser trochanter a freshening cut was made. Any excess bone remaining was carefully removed. I then used the corkscrew to remove the femoral head from the acetabulum which was then measured on the back table. The excess bone was removed and removed the scopes irrigated with normal saline. I then trial the femoral head according to what was measured on the back table and got good fit within the acetabulum. I then turned my attention to femoral preparation. A box osteotome was first used to get laterally along the trochanter. I then used the lateralizing reamer to avoid medialization of the stem and ultimately varus malalignment. I then began broaching with a 0 broach and broached up to a #6 broach which was I got good proximal fit. I began trialing with a #0 neck length and had adequate stability through flexion, internal rotation and adduction. There is no instability with external rotation. However there did continue be leg length inequality thus I trialed a +4 neck length gave me more optimal stability and equal leg lengths on the operating room table. At this point the trial implants were removed. The wound was irrigated with normal saline. I then implanted my appropriate size stem the good peripheral fit and placement at my predetermined broach level. I then implanted the final unipolar head. The hip was reduced once again measures stability and good stability throughout all range of motion with no palpable impingement. Leg lengths were equivalent to the nonoperative side. There was copious irrigated with normal saline. Exparel injected for postoperative pain control. Utilizing a #5 FiberWire suture I secured the capsule posteriorly into the trochanter. I then irrigated once again with normal saline. The gluteus amie and tensor fascia vincent was closed with a running 0 Prolene suture. I then injected Exparel in multiple locations throughout the subcutaneous tissues , hip wound and the fascia. I then closed the subcutaneous tissues with interrupted 2-0 Vicryl suture. The skin was closed a running 3-0 subcuticular Monocryl suture this was then reinforced with Dermabond and Steri-Strips. A sterile Tegaderm dressing was then placed. Sponge counts, instrument counts and needle counts were correct. Patient was then awoken from anesthesia laid supine at which point her leg lengths were once again checked and found to be equal to the nonoperative extremity. Patient was then transferred to the operating stretcher and placed in an abduction pillow. The was no intraoperative crepitations patient tolerated she will was stable to PACU. Postoperative plan: Patient will begin Physical therapy on postoperative day 1 as per hip precautions. Will be started on heparin for DVT prophylaxis given his renal disease. Implants: Accolade II Size 6, 49 Unipolar Head, +4 Neck Length
[2016-08-29] MEDS ORDERED: CEFAZOLIN 1 GM/D5W RTU 50 ML IV SCH (18:00)
[2016-08-29] MEDS ORDERED: CEFAZOLIN SODIUM 1 GM in DEXTROSE 5%-WATER 50 ML IV ONE (19:00)
[2016-08-29] MEDS: CEFAZOLIN SODIUM 1 GM in DEXTROSE 5%-WATER 50 ML IV SCH (21:28)
[2016-08-29] MEDS: ATORVASTATIN CALCIUM 20 MG TABLET PO SCH (21:31)
[2016-08-30] MEDS ORDERED: CEFAZOLIN SODIUM 1 GM in DEXTROSE 5%-WATER 50 ML IV SCH ×2
[2016-08-30] MEDS ORDERED: NALOXONE HCL INJ/PF 0.4 MG/1 ML SDV ONE (00:15)
[2016-08-30] MEDS ORDERED: NALOXONE HCL INJ/PF 0.4 MG/1 ML SDV IV ONE (00:45)
[2016-08-30] MEDS ORDERED: NORMAL SALINE 1000 ML 500 ML IV ONE (00:45)
[2016-08-30] MEDS: ACETAMINOPHEN 325 MG TABLET PO PRN ×2 (00:53→21:17)
[2016-08-30] MEDS: IPRATROPIUM/ALBUTEROL 0.5-2.5 MG/3 ML AMPUL NEB SCH ×4 (02:13→19:52)
[2016-08-30] MEDS: CEFAZOLIN SODIUM 1 GM in DEXTROSE 5%-WATER 50 ML IV SCH ×3 (03:06→18:01)
[2016-08-30 05:10] LABS: HEMATOCRIT 23.9 % (37.9-51.0); HGB HCT DIFFERENCE 0.7; MEAN CORPUSCULAR HEMOGLOBIN 32.4 pg (27.0-33.4); MEAN CORPUSCULAR HGB CONC 34.2 g/dL (32.0-36.0); MEAN CORPUSCULAR VOLUME 95 fl (80-97); RED BLOOD COUNT 2.52 10^6/uL (4.35-5.55); RED CELL DISTRIBUTION WIDTH 13.9 % (11.5-14.0); WHITE BLOOD COUNT 8.4 10^3/uL (4.0-10.5)
[2016-08-30 05:26] LABS: HEMOGLOBIN 8.2 g/dL (13.5-17.0)
[2016-08-30 05:40] LABS: ANION GAP 9 (5-19); CALCIUM 7.4 mg/dL (8.4-10.2); CARBON DIOXIDE 27 mmol/L (22-30); CHLORIDE 102 mmol/L (98-107); CREATININE RESULT 4.19 mg/dL (0.52-1.25); GLUCOSE 147 mg/dL (75-110); POTASSIUM 4.6 mmol/L (3.6-5.0); SODIUM 138.4 mmol/L (137-145)
[2016-08-30 05:52] LABS: BLOOD UREA NITROGEN 63 mg/dL (7-20)
[2016-08-30] MEDS: HEPARIN SOD (PORCINE) 5,000 UNIT/ML 1 ML SYRINGE SUBCUT SCH ×3 (06:10→21:09)
[2016-08-30] MEDS: LANSOPRAZOLE 30 MG TAB.RAP.DR PO SCH (06:12)
[2016-08-30 07:14] LABS: BASOPHILS % (MANUAL) 0 % (0-2); EOSINOPHILS % (MANUAL) 0 % (0-6); LYMPHOCYTES % (MANUAL) 21 % (13-45); TOTAL CELLS COUNTED 100
[2016-08-30 07:15] LABS: RBC MORPHOLOGY COMMENT NORMO-CYTIC/CHROMIC
--- NOTE | 2016-08-30 07:15 | PDOC PROGRESS REPORT ---
Subjective Progress Note for:: 08/30/16 Subjective:: Patient seen and evaluated this morning. States his pain is better. Did require Narcan last evening mentation has improved. Denies chest pain or shortness of breath. Physical Exam Vital Signs: Temp Pulse Resp BP Pulse Ox 100.3 F 69 14 106/56 L 91 L 08/29/16 23:30 08/30/16 02:13 08/30/16 02:13 08/30/16 01:00 08/30/16 02:13 Intake & Output 08/29/16 08/30/16 08/31/16 06:59 06:59 06:59 Intake Total 1115 5900 Output Total 870 3175 Balance 245 2725 Weight 86.6 kg 86.5 kg Musculoskeletal exam: PRESENT: other - Right lower extremity: Dressing clean/dry /intact. Intact plantar flexion/dorsiflexion. Dorsalis pedis pulse 2+. Cap refill less than 2 seconds. No evidence of limb length inequality Results Laboratory Results: 08/30/16 04:18 08/30/16 04:18 08/30/16 08/30/16 08/30/16 04:18 04:18 04:18 WBC 8.4 Cancelled RBC 2.52 L Cancelled Hgb 8.2 L D Cancelled Hct 23.9 L Cancelled MCV 95 Cancelled MCH 32.4 Cancelled MCHC 34.2 Cancelled RDW 13.9 Cancelled Plt Count 123 L Cancelled Seg Neutrophils % Not Reportable Cancelled Lymphocytes % Not Reportable Cancelled Monocytes % Not Reportable Cancelled Eosinophils % Not Reportable Cancelled Basophils % Not Reportable Cancelled Absolute Neutrophils Not Reportable Cancelled Absolute Lymphocytes Not Reportable Cancelled Absolute Monocytes Not Reportable Cancelled Absolute Eosinophils Not Reportable Cancelled Absolute Basophils Not Reportable Cancelled Sodium 138.4 Potassium 4.6 Chloride 102 Carbon Dioxide 27 Anion Gap 9 BUN 63 H D Creatinine 4.19 H Est GFR ( Amer) 17 L Est GFR (Non-Af Amer) 14 L Glucose 147 H Calcium 7.4 L Impressions: Chest X-Ray 08/29/16 00:00 IMPRESSION: Improving bronchitis. Hip/Pelvis X-Ray 08/29/16 17:28 IMPRESSION: SATISFACTORY POSTOPERATIVE RIGHT HIP. Assessment & Plan - Diagnosis (1) Fracture of femoral neck, right, closed Qualifiers: Encounter type: initial encounter Qualified Code(s): S72.001A - Fracture of unspecified part of neck of right femur, initial encounter for closed fracture Is this a current diagnosis for this admission?: YesPlan: Status post right hip hemiarthroplasty #1 pain control will monitor pain medication given his requirement for Narcan #2 heparin for DVT prophylaxis as per hospitalist recommendation #3 physical therapy hip precautions #4 discharge planning patient will require [facility] facility.
[2016-08-30] MEDS: ISOSORBIDE DINITRATE 20 MG TABLET PO SCH ×2 (09:29→21:17)
[2016-08-30] MEDS: OXYCODONE-ACETAMINOPHEN 5-325 MG TABLET PO PRN (09:29)
[2016-08-30] MEDS: DOCUSATE SODIUM 100 MG CAPSULE PO SCH ×2 (09:29→18:01)
[2016-08-30] MEDS: ASPIRIN 81 MG TABLET, CHEWABLE PO SCH (09:29)
[2016-08-30] MEDS ORDERED: RINGERS SOLUTION,LACTATED 1,000 ML IV PRN (14:34)
--- NOTE | 2016-08-30 14:43 | PDOC PROGRESS REPORT ---
Subjective Progress Note for:: 08/30/16 Subjective:: Patient tolerated the procedure well, however last night patient developed brief episode of hypotension were he was given fluids, and Narcan and blood pressure improved. Patient postop day 1 today with hip surgery. Denies any PND or orthopnea, no chest pain, no nausea or vomiting or diaphoresis. Patient is going for regular scheduled dialysis. Chest x-ray improving, may have underlying congestion from fluid overload as it improved with dialysis. Physical Exam Vital Signs: Temp Pulse Resp BP Pulse Ox 99.0 F 88 16 94/44 L 94 08/30/16 12:26 08/30/16 14:00 08/30/16 13:27 08/30/16 12:26 08/30/16 12:26 Intake & Output 08/29/16 08/30/16 08/31/16 06:59 06:59 06:59 Intake Total 1115 5900 Output Total 870 3175 Balance 245 2725 Weight 86.6 kg 86.5 kg General appearance: PRESENT: no acute distress, cooperative, obese Head exam: PRESENT: normocephalic Eye exam: PRESENT: EOMI Mouth exam: PRESENT: moist, neck supple Neck exam: ABSENT: JVD Respiratory exam: PRESENT: clear to auscultation jenni. ABSENT: rhonchi, wheezes Cardiovascular exam: PRESENT: RRR. ABSENT: gallop GI/Abdominal exam: PRESENT: hypoactive bowel sounds, soft. ABSENT: distended Extremities exam: PRESENT: other - Trace lower extremity edema Neurological exam: PRESENT: alert, awake, oriented to situation Skin exam: PRESENT: dry, warm. ABSENT: cyanosis Results Laboratory Results: 08/30/16 04:18 08/30/16 04:18 08/30/16 08/30/16 08/30/16 04:18 04:18 04:18 WBC 8.4 Cancelled RBC 2.52 L Cancelled Hgb 8.2 L D Cancelled Hct 23.9 L Cancelled MCV 95 Cancelled MCH 32.4 Cancelled MCHC 34.2 Cancelled RDW 13.9 Cancelled Plt Count 123 L Cancelled Seg Neutrophils % Not Reportable Cancelled Lymphocytes % Not Reportable Cancelled Monocytes % Not Reportable Cancelled Eosinophils % Not Reportable Cancelled Basophils % Not Reportable Cancelled Absolute Neutrophils Not Reportable Cancelled Absolute Lymphocytes Not Reportable Cancelled Absolute Monocytes Not Reportable Cancelled Absolute Eosinophils Not Reportable Cancelled Absolute Basophils Not Reportable Cancelled Sodium 138.4 Potassium 4.6 Chloride 102 Carbon Dioxide 27 Anion Gap 9 BUN 63 H D Creatinine 4.19 H Est GFR ( Amer) 17 L Est GFR (Non-Af Amer) 14 L Glucose 147 H Calcium 7.4 L Impressions: Chest X-Ray 08/29/16 00:00 IMPRESSION: Improving bronchitis. Hip/Pelvis X-Ray 08/29/16 17:28 IMPRESSION: SATISFACTORY POSTOPERATIVE RIGHT HIP. Assessment & Plan - Diagnosis (1) Hip fracture Qualifiers: Encounter type: initial encounter Fracture type: closed Laterality : right Qualified Code(s): S72.001A - Fracture of unspecified part of neck of right femur, initial encounter for closed fracture Is this a current diagnosis for this admission?: Yes (2) Thrombocytopenia Is this a current diagnosis for this admission?: Yes (3) Abnormal chest x-ray Is this a current diagnosis for this admission?: Yes (4) Hypoxemia Is this a current diagnosis for this admission?: Yes (5) Anemia, chronic disease Is this a current diagnosis for this admission?: Yes (6) Coronary artery disease Qualifiers: Coronary Disease-Associated Artery/Lesion type: [place] artery [place] vs. transplanted heart: [place] heart Associated angina: without angina Qualified Code(s): I25.10 - Atherosclerotic heart disease of [place] coronary artery without angina pectoris Is this a current diagnosis for this admission?: Yes (7) Gout Qualifiers: Gout site: unspecified site Gout etiology: unspecified cause Chronicity: unspecified Qualified Code(s): M10.9 - Gout, unspecified Is this a current diagnosis for this admission?: Yes (8) Hyperlipidemia Qualifiers: Hyperlipidemia type: unspecified Qualified Code(s): E78.5 - Hyperlipidemia, unspecified Is this a current diagnosis for this admission?: Yes (9) Hypertension Qualifiers: Hypertension type: essential hypertension Qualified Code(s): I10 - Essential (primary) hypertension Is this a current diagnosis for this admission?: Yes (10) PVD (peripheral vascular disease) Is this a current diagnosis for this admission?: Yes (11) History of renal cell cancer Is this a current diagnosis for this admission?: Yes (12) COPD (chronic obstructive pulmonary disease) Qualifiers: COPD type: unspecified COPD Qualified Code(s): J44.9 - Chronic obstructive pulmonary disease, unspecified Is this a current diagnosis for this admission?: Yes - Time Time Spent with patient: 25-34 minutes - Plan Summary Plan Summary: Patient getting cefazolin postoperatively. We will hold the Augmentin and resume when off cefazolin. We will decrease his Imdur dose due to hypotension. Begin Physical therapy and plan for subacute rehabilitation in a [place] [facility] facility setting. Continue supportive care.
--- NOTE | 2016-08-30 15:01 | PDOC PROGRESS REPORT ---
Subjective Progress Note for:: 08/30/16 Subjective:: I'm seeing the patient during dialysis treatment this afternoon. Patient says is feeling fine and denies any pain postoperatively. He underwent right hip hemiarthroplasty yesterday care of Dr. Harrell. He told me he is eating but his nurse told me is not eating much. Last night he had an episode of hypotension so I was told that he was given fluid boluses. He was also maintained on some IV fluids with lactated Ringer's until now. Patient's mentation was also suboptimal postoperatively requiring Narcan. Currently I think the patient's mentation is at baseline. He is tolerating dialysis without any much problems. Physical Exam Vital Signs: Temp Pulse Resp BP Pulse Ox 99.0 F 88 16 94/44 L 94 08/30/16 12:26 08/30/16 14:00 08/30/16 13:27 08/30/16 12:26 08/30/16 12:26 Intake & Output 08/29/16 08/30/16 08/31/16 06:59 06:59 06:59 Intake Total 1115 5900 Output Total 870 3175 Balance 245 2725 Weight 86.6 kg 86.5 kg Vital signs now during dialysis: Blood pressure 128/53, heart rate of 98, blood flow rate of 450 mL per minute, dialysate flow rate of 600 mL per minute. Exam: General appearance: PRESENT: no acute distress, cooperative, well-developed, well-nourished Head exam: PRESENT: atraumatic, normocephalic; his face looks slightly swollen. Eye exam: PRESENT: conjunctiva pale, PERRLA. ABSENT: scleral icterus Neck exam: ABSENT: JVD Respiratory exam: PRESENT: Diminished breath sounds. ABSENT: crackles, rales, rhonchi, unlabored, wheezes Cardiovascular exam: PRESENT: Regular rate rhythm -+S1, +S2. ABSENT: diastolic murmur, systolic murmur GI/Abdominal exam: PRESENT: normal bowel sounds, soft. ABSENT: guarding, mass, tenderness Extremities exam: ABSENT: No edema Neurological exam: PRESENT: alert, awake, oriented to person, place and not to time. Skin exam: PRESENT: dry, warm, Results Laboratory Results: 08/30/16 04:18 08/30/16 04:18 08/30/16 08/30/16 08/30/16 04:18 04:18 04:18 WBC 8.4 Cancelled RBC 2.52 L Cancelled Hgb 8.2 L D Cancelled Hct 23.9 L Cancelled MCV 95 Cancelled MCH 32.4 Cancelled MCHC 34.2 Cancelled RDW 13.9 Cancelled Plt Count 123 L Cancelled Seg Neutrophils % Not Reportable Cancelled Lymphocytes % Not Reportable Cancelled Monocytes % Not Reportable Cancelled Eosinophils % Not Reportable Cancelled Basophils % Not Reportable Cancelled Absolute Neutrophils Not Reportable Cancelled Absolute Lymphocytes Not Reportable Cancelled Absolute Monocytes Not Reportable Cancelled Absolute Eosinophils Not Reportable Cancelled Absolute Basophils Not Reportable Cancelled Sodium 138.4 Potassium 4.6 Chloride 102 Carbon Dioxide 27 Anion Gap 9 BUN 63 H D Creatinine 4.19 H Est GFR ( Amer) 17 L Est GFR (Non-Af Amer) 14 L Glucose 147 H Calcium 7.4 L Impressions: Chest X-Ray 08/29/16 00:00 IMPRESSION: Improving bronchitis. Hip/Pelvis X-Ray 08/29/16 17:28 IMPRESSION: SATISFACTORY POSTOPERATIVE RIGHT HIP. Assessment & Plan - Diagnosis (1) End-stage renal disease on hemodialysis Is this a current diagnosis for this admission?: YesPlan: We will do dialysis today for 3 hours, using the patient's AV fistula, with 2 potassium bath, blood flow rate of 450 mL per minute, dialysate flow rate of 600 mL per minute, ultrafiltration 1.5-2 L as tolerated, no heparin and Procrit with 20,000 units during dialysis intravenously. I spoke to Dr. Guerrero about the patient's IV fluids, I recommend discontinuation and he agreed. We will try to get ultrafiltration if he tolerates it. He will be monitored throughout dialysis. We will continue to supervise dialysis while here in hospital. (2) Fracture of femoral neck, right, closed Qualifiers: Encounter type: initial encounter Qualified Code(s): S72.001A - Fracture of unspecified part of neck of right femur, initial encounter for closed fracture Is this a current diagnosis for this admission?: YesPlan: Status post right hemiarthroplasty yesterday August 29. (3) Anemia, chronic disease Is this a current diagnosis for this admission?: YesPlan: His hemoglobin has come down from 11-8.2 today. The acute drop and hemoglobin is more likely secondary to some blood loss and hemodilution. We will give Procrit 20,000 units intravenously. I discontinued the IV fluids. (4) Hypertension Qualifiers: Hypertension type: essential hypertension Qualified Code(s): I10 - Essential (primary) hypertension Is this a current diagnosis for this admission?: YesPlan: Currently acceptable and controlled. - Time Time with patient: 15-25 minutes
[2016-08-30] MEDS ORDERED: EPOETIN ALFA INJ 20000 UNIT/1 ML VIAL (RENAL) IV ONE (16:00)
[2016-08-30] MEDS: ATORVASTATIN CALCIUM 20 MG TABLET PO SCH (21:17)
[2016-08-31] MEDS: IPRATROPIUM/ALBUTEROL 0.5-2.5 MG/3 ML AMPUL NEB SCH ×4 (02:08→20:18)
[2016-08-31] MEDS: HEPARIN SOD (PORCINE) 5,000 UNIT/ML 1 ML SYRINGE SUBCUT SCH ×3 (05:16→21:42)
[2016-08-31] MEDS: ACETAMINOPHEN 325 MG TABLET PO PRN (05:17)
[2016-08-31] MEDS: LANSOPRAZOLE 30 MG TAB.RAP.DR PO SCH (05:17)
[2016-08-31 05:45] LABS: HEMATOCRIT 21.1 % (37.9-51.0); HGB HCT DIFFERENCE 0.5; MEAN CORPUSCULAR HEMOGLOBIN 31.9 pg (27.0-33.4); MEAN CORPUSCULAR HGB CONC 34.1 g/dL (32.0-36.0); MEAN CORPUSCULAR VOLUME 94 fl (80-97); RED BLOOD COUNT 2.25 10^6/uL (4.35-5.55); RED CELL DISTRIBUTION WIDTH 13.7 % (11.5-14.0); WHITE BLOOD COUNT 8.6 10^3/uL (4.0-10.5)
[2016-08-31 05:46] LABS: HEMOGLOBIN 7.2 g/dL (13.5-17.0)
[2016-08-31 07:42] LABS: HEPATITIS C QUANTITATION HCV Not Detected IU/mL (.)
[2016-08-31] MEDS: LACTULOSE SYRUP 20 GM/30 ML UDCUP PO SCH ×2 (10:36→17:41)
[2016-08-31] MEDS: LACTOBACILLUS ACIDOPHILUS 250 MG TAB PO SCH ×2 (10:37→17:41)
[2016-08-31] MEDS: ASPIRIN 81 MG TABLET, CHEWABLE PO SCH (10:37)
[2016-08-31] MEDS: DOCUSATE SODIUM 100 MG CAPSULE PO SCH ×2 (10:37→17:41)
[2016-08-31] MEDS: AMOXICILLIN TR/POT CLAVULANATE 500-125 MG TAB PO SCH ×2 (10:37→21:42)
[2016-08-31] MEDS: ISOSORBIDE DINITRATE 20 MG TABLET PO SCH ×2 (10:37→21:42)
--- NOTE | 2016-08-31 19:05 | PDOC PROGRESS REPORT ---
Subjective Progress Note for:: 08/31/16 Subjective:: Patient seen and evaluated this evening. Currently no issues. Patient did require 2 units packed red blood cells for postoperative anemia. He has required max assistance with physical therapy. Currently states his pain is controlled. Denies chest pain or shortness of breath. Physical Exam Vital Signs: Temp Pulse Resp BP Pulse Ox 98.5 F 83 18 105/65 99 08/31/16 16:32 08/31/16 16:32 08/31/16 16:32 08/31/16 16:32 08/31/16 17:42 Intake & Output 08/30/16 08/31/16 09/01/16 06:59 06:59 06:59 Intake Total 6000 655 1856 Output Total 3175 2700 Balance 2825 -2045 1856 Weight 86.5 kg 97.3 kg Musculoskeletal exam: PRESENT: other - Right lower extremity: Dressing clean/dry /intact no erythema or drainage. Mild thigh swelling. No calf tenderness. Intact plantar flexion/dorsiflexion. No evidence of limb length inequality Results Laboratory Results: 08/31/16 04:36 08/30/16 04:18 08/31/16 08/31/16 04:36 07:05 WBC 8.6 RBC 2.25 L Hgb 7.2 L Hct 21.1 L MCV 94 MCH 31.9 MCHC 34.1 RDW 13.7 Plt Count 120 L Blood Type B POSITIVE Antibody Screen NEGATIVE Impressions: Hip/Pelvis X-Ray 08/29/16 17:28 IMPRESSION: SATISFACTORY POSTOPERATIVE RIGHT HIP. Chest X-Ray 08/31/16 00:00 IMPRESSION: NO ACUTE RADIOGRAPHIC FINDING IN THE CHEST. Assessment & Plan - Diagnosis (1) Fracture of femoral neck, right, closed Qualifiers: Encounter type: subsequent encounter Fracture healing: with routine healing Qualified Code(s): S72.001D - Fracture of unspecified part of neck of right femur, subsequent encounter for closed fracture with routine healing Is this a current diagnosis for this admission?: YesPlan: Postop day #2 status post right hip hemiarthroplasty #1 physical therapy with hip precautions #2 pain control #3 heparin for DVT prophylaxis #4 acute on chronic postoperative anemia patient has received 2 units packed red blood cells. #5 discharge planning patient will require longterm facility when stable as per internal medicine.
[2016-08-31] MEDS: ATORVASTATIN CALCIUM 20 MG TABLET PO SCH (21:42)
--- NOTE | 2016-09-01 00:59 | PDOC PROGRESS REPORT ---
Subjective Progress Note for:: 08/31/16 Subjective:: Patient is found to be anemic and is given 2 units of packed red blood cells. Patient denies chest pain, shortness of breath, abdominal pain, nausea, vomiting , fevers, chills, diarrhea, constipation, headache, new onset weakness. Physical Exam Vital Signs: Temp Pulse Resp BP Pulse Ox 98.3 F 112 H 20 131/61 H 93 08/31/16 04:05 08/31/16 04:05 08/31/16 04:05 08/31/16 04:05 08/31/16 05:58 Intake & Output 08/30/16 08/31/16 09/01/16 06:59 06:59 06:59 Intake Total 6000 655 Output Total 3175 2700 Balance 2825 -2045 Weight 86.5 kg 97.3 kg Exam: General: Awake alert and oriented x3, no acute respiratory distress HEENT: AT/NC, PERRL, EOMI, oropharynx is moist, pink, no scleral icterus, no conjunctival injection Neck: No JVD, trachea midline Chest: Clear to auscultation bilaterally, no wheezes rhonchi or rales CV: Regular rate and rhythm, normal S1 and S2, no rub, or gallop Abdomen: Soft, nontender to palpation, nondistended, diminished bowel sounds; no rebound, rigidity, or guarding Extremities: No cyanosis, clubbing or edema Neuro: Cranial nerves II through XII are grossly intact without focal deficits; awake alert and oriented x3 Psych: Normal mood and affect Results Laboratory Results: 08/31/16 04:36 08/30/16 04:18 08/31/16 08/31/16 04:36 07:05 WBC 8.6 RBC 2.25 L Hgb 7.2 L Hct 21.1 L MCV 94 MCH 31.9 MCHC 34.1 RDW 13.7 Plt Count 120 L Blood Type B POSITIVE Impressions: Chest X-Ray 08/29/16 00:00 IMPRESSION: Improving bronchitis. Hip/Pelvis X-Ray 08/29/16 17:28 IMPRESSION: SATISFACTORY POSTOPERATIVE RIGHT HIP. Assessment & Plan - Diagnosis (1) Acute blood loss anemia Is this a current diagnosis for this admission?: YesPlan: Patient is given 2 units packed red blood cells on 08/31/2016. (2) COPD (chronic obstructive pulmonary disease) Qualifiers: COPD type: unspecified COPD Qualified Code(s): J44.9 - Chronic obstructive pulmonary disease, unspecified Is this a current diagnosis for this admission?: Yes (3) End-stage renal disease on hemodialysis Is this a current diagnosis for this admission?: YesPlan: Defer to nephrology (4) Fracture of femoral neck, right, closed Qualifiers: Encounter type: subsequent encounter Fracture healing: with routine healing Qualified Code(s): S72.001D - Fracture of unspecified part of neck of right femur, subsequent encounter for closed fracture with routine healing Is this a current diagnosis for this admission?: YesPlan: Defer to orthopedics (5) History of renal cell cancer Is this a current diagnosis for this admission?: Yes (6) Thrombocytopenia Is this a current diagnosis for this admission?: Yes (7) H/O endovascular stent graft for abdominal aortic aneurysm Is this a current diagnosis for this admission?: No (8) PVD (peripheral vascular disease) Is this a current diagnosis for this admission?: Yes - Time Time Spent with patient: 25-34 minutes Medications reviewed and adjusted accordingly: Yes
[2016-09-01] MEDS: IPRATROPIUM/ALBUTEROL 0.5-2.5 MG/3 ML AMPUL NEB SCH ×4 (02:03→19:38)
[2016-09-01 06:36] LABS: ANION GAP 13 (5-19); BLOOD UREA NITROGEN 49 mg/dL (7-20); CALCIUM 7.7 mg/dL (8.4-10.2); CARBON DIOXIDE 30 mmol/L (22-30); CHLORIDE 99 mmol/L (98-107); CREATININE RESULT 3.98 mg/dL (0.52-1.25); GLUCOSE 132 mg/dL (75-110); POTASSIUM 3.7 mmol/L (3.6-5.0); SODIUM 141.5 mmol/L (137-145)
[2016-09-01 06:43] LABS: HEMATOCRIT 23.4 % (37.9-51.0); HGB HCT DIFFERENCE 0.3; MEAN CORPUSCULAR HEMOGLOBIN 31.9 pg (27.0-33.4); MEAN CORPUSCULAR HGB CONC 33.6 g/dL (32.0-36.0); MEAN CORPUSCULAR VOLUME 95 fl (80-97); RED BLOOD COUNT 2.46 10^6/uL (4.35-5.55); RED CELL DISTRIBUTION WIDTH 14.6 % (11.5-14.0); WHITE BLOOD COUNT 9.7 10^3/uL (4.0-10.5)
[2016-09-01 06:46] LABS: HEMOGLOBIN 7.9 g/dL (13.5-17.0)
[2016-09-01] MEDS: LANSOPRAZOLE 30 MG TAB.RAP.DR PO SCH (07:03)
[2016-09-01] MEDS: HEPARIN SOD (PORCINE) 5,000 UNIT/ML 1 ML SYRINGE SUBCUT SCH ×2 (07:05→14:08)
[2016-09-01] MEDS ORDERED: ACETAMINOPHEN 325 MG TABLET PO PRN (08:14)
[2016-09-01] MEDS ORDERED: NORMAL SALINE 250 ML IV PRN ×2 (08:14)
[2016-09-01] MEDS: AMOXICILLIN TR/POT CLAVULANATE 500-125 MG TAB PO SCH ×2 (09:38→22:41)
[2016-09-01] MEDS: DOCUSATE SODIUM 100 MG CAPSULE PO SCH ×2 (09:38→18:47)
[2016-09-01] MEDS: LACTOBACILLUS ACIDOPHILUS 250 MG TAB PO SCH ×2 (09:38→18:47)
[2016-09-01] MEDS: ISOSORBIDE DINITRATE 20 MG TABLET PO SCH ×2 (09:39→22:41)
[2016-09-01] MEDS: LACTULOSE SYRUP 20 GM/30 ML UDCUP PO SCH ×4 (09:39→22:41)
[2016-09-01] MEDS: ASPIRIN 81 MG TABLET, CHEWABLE PO SCH (09:40)
--- NOTE | 2016-09-01 13:28 | PDOC PROGRESS REPORT ---
Subjective Progress Note for:: 09/01/16 Subjective:: Patient seen and evaluated this morning. Lying in bed comfortably. No issues overnight. Denies chest pain or shortness of breath. Denies headache or dizziness. Physical Exam Vital Signs: Temp Pulse Resp BP Pulse Ox 101.3 F H 93 21 H 115/57 L 93 09/01/16 12:09 09/01/16 12:09 09/01/16 12:09 09/01/16 12:09 09/01/16 12:09 Intake & Output 08/31/16 09/01/16 09/02/16 06:59 06:59 06:59 Intake Total 655 2156 Output Total 2700 1270 Balance -2045 886 Weight 97.3 kg 94 kg Musculoskeletal exam: PRESENT: other - Right hip: Dressing clean/dry/intact no erythema or drainage. Minimal thigh swelling. Mild ecchymosis. Intact plantar flexion/dorsiflexion. No calf tenderness. Results Laboratory Results: 09/01/16 05:20 09/01/16 05:20 08/31/16 09/01/16 09/01/16 07:05 05:20 05:20 WBC 9.7 RBC 2.46 L Hgb 7.9 L Hct 23.4 L MCV 95 MCH 31.9 MCHC 33.6 RDW 14.6 H Plt Count 139 L Sodium 141.5 Potassium 3.7 Chloride 99 Carbon Dioxide 30 Anion Gap 13 BUN 49 H Creatinine 3.98 H Est GFR ( Amer) 18 L Est GFR (Non-Af Amer) 15 L Glucose 132 H Calcium 7.7 L Blood Type B POSITIVE Antibody Screen NEGATIVE Impressions: Hip/Pelvis X-Ray 08/29/16 17:28 IMPRESSION: SATISFACTORY POSTOPERATIVE RIGHT HIP. Chest X-Ray 08/31/16 00:00 IMPRESSION: NO ACUTE RADIOGRAPHIC FINDING IN THE CHEST. Assessment & Plan - Diagnosis (1) Fracture of femoral neck, right, closed Qualifiers: Encounter type: subsequent encounter Fracture healing: with routine healing Qualified Code(s): S72.001D - Fracture of unspecified part of neck of right femur, subsequent encounter for closed fracture with routine healing Is this a current diagnosis for this admission?: YesPlan: Status post right hip hemiarthroplasty #1 pain control #2 physical therapy with hip precautions #3 acute on chronic anemia at this point does not appear to be a sign of operative site bleeding will continue to monitor may consider holding heparin for DVT prophylaxis. #4 discharge planning senior care facility when bed available
[2016-09-01] MEDS: OXYCODONE-ACETAMINOPHEN 5-325 MG TABLET PO PRN ×2 (14:07→22:40)
--- NOTE | 2016-09-01 16:16 | PDOC PROGRESS REPORT ---
Subjective Progress Note for:: 09/01/16 Subjective:: I'm seeing the patient during dialysis treatment this afternoon. Patient said he feels tired other than that he denies any other complaints. His hemoglobin dropped again yesterday to him 7.2 so he was transfused 2 units packed RBC. This morning his hemoglobin was 7.9 so we transfuse 1 unit of packed RBC while he is on dialysis currently. He doesn't seem to have any active source of any bleeding. Orthopedics is following him for his hip. He is currently sleeping through during dialysis. He is otherwise hemodynamically stable. Physical Exam Vital Signs: Temp Pulse Resp BP Pulse Ox 99.1 F 96 14 103/52 L 96 09/01/16 15:33 09/01/16 15:33 09/01/16 15:33 09/01/16 15:33 09/01/16 15:33 Intake & Output 08/31/16 09/01/16 09/02/16 06:59 06:59 06:59 Intake Total 655 2156 300 Output Total 2700 1270 Balance -2045 886 300 Weight 97.3 kg 94 kg Vital signs during dialysis: Blood pressure 118/62, pulse rate of 101, blood flow rate of 450 mL per minute, dialysate flow rate of 600 mL per minute. Exam: General appearance: PRESENT: no acute distress, cooperative, well-developed, well-nourished Head exam: PRESENT: atraumatic, normocephalic Eye exam: PRESENT: conjunctiva pale, PERRLA. ABSENT: scleral icterus Neck exam: ABSENT: JVD Respiratory exam: PRESENT: Diminished breath sounds. ABSENT: crackles, rales, rhonchi, unlabored, wheezes Cardiovascular exam: PRESENT: Regular rate rhythm -+S1, +S2. ABSENT: diastolic murmur, systolic murmur GI/Abdominal exam: PRESENT: normal bowel sounds, soft. ABSENT: guarding, mass, tenderness Extremities exam: ABSENT: No edema Neurological exam: PRESENT: Asleep but arousable, oriented to person, place and time. Skin exam: PRESENT: dry, warm, Results Laboratory Results: 09/01/16 05:20 09/01/16 05:20 08/31/16 09/01/16 09/01/16 07:05 05:20 05:20 WBC 9.7 RBC 2.46 L Hgb 7.9 L Hct 23.4 L MCV 95 MCH 31.9 MCHC 33.6 RDW 14.6 H Plt Count 139 L Sodium 141.5 Potassium 3.7 Chloride 99 Carbon Dioxide 30 Anion Gap 13 BUN 49 H Creatinine 3.98 H Est GFR ( Amer) 18 L Est GFR (Non-Af Amer) 15 L Glucose 132 H Calcium 7.7 L Blood Type B POSITIVE Antibody Screen NEGATIVE Impressions: Hip/Pelvis X-Ray 08/29/16 17:28 IMPRESSION: SATISFACTORY POSTOPERATIVE RIGHT HIP. Chest X-Ray 08/31/16 00:00 IMPRESSION: NO ACUTE RADIOGRAPHIC FINDING IN THE CHEST. Assessment & Plan - Diagnosis (1) End-stage renal disease on hemodialysis Is this a current diagnosis for this admission?: YesPlan: We are doing dialysis today for 3 hours, using the patient's left arm AV fistula , with 3 potassium bath, blood flow rate of 50 mL per minute, dialysate flow rate of 600 mL per minute, ultrafiltration at least 2 L, no heparin and Procrit with 20,000 units during dialysis intravenously. Patient will be monitored throughout dialysis treatment. (2) Fracture of femoral neck, right, closed Qualifiers: Encounter type: subsequent encounter Fracture healing: with routine healing Qualified Code(s): S72.001D - Fracture of unspecified part of neck of right femur, subsequent encounter for closed fracture with routine healing Is this a current diagnosis for this admission?: YesPlan: Status post right hemiarthroplasty on August 29. Patient is awaiting rehabilitation placement. (3) Anemia, chronic disease Is this a current diagnosis for this admission?: YesPlan: Patient's hemoglobin has been dropping for the last couple of days even though there is no obvious signs of any active bleeding except for a possibility on the surgical site. Patient was transfused 2 units packed RBC yesterday and has been transfused 1 unit packed RBC during dialysis today. I will also give him Procrit 20,000 units. Recheck hemoglobin in the next couple days. (4) Hypertension Qualifiers: Hypertension type: essential hypertension Qualified Code(s): I10 - Essential (primary) hypertension Is this a current diagnosis for this admission?: YesPlan: Currently acceptable and controlled. (5) Fever Is this a current diagnosis for this admission?: YesPlan: Could be due to usual postop fever. Patient was place on Augmentin. Continue to monitor. - Time Time with patient: 15-25 minutes
[2016-09-01] MEDS ORDERED: EPOETIN ALFA INJ 20000 UNIT/1 ML VIAL (RENAL) IV PRN (17:13)
--- NOTE | 2016-09-01 20:16 | PDOC PROGRESS REPORT ---
Subjective Progress Note for:: 09/01/16 Subjective:: Patient seen in dialysis today. He denies any complaints. Patient has not had a bowel movement in nearly 6 days. Patient denies chest pain, shortness of breath, abdominal pain, nausea, vomiting, fevers, chills, diarrhea, headache, new onset weakness. Physical Exam Vital Signs: Temp Pulse Resp BP Pulse Ox 98.6 F 101 H 21 H 125/56 L 95 09/01/16 04:00 09/01/16 07:00 09/01/16 04:00 09/01/16 04:00 09/01/16 04:00 Intake & Output 08/31/16 09/01/16 09/02/16 06:59 06:59 06:59 Intake Total 655 2156 Output Total 2700 1270 Balance -5 886 Weight 97.3 kg 94 kg Exam: General: Awake alert and answers questions appropriately, no acute respiratory distress HEENT: AT/NC, PERRL, EOMI, oropharynx is moist, pink, no scleral icterus, no conjunctival injection Neck: No JVD, trachea midline Chest: Right middle lobe rhonchi CV: Regular rate and rhythm, normal S1 and S2, no rub, or gallop Abdomen: Soft, nontender to palpation, nondistended, diminished bowel sounds; no rebound, rigidity, or guarding Extremities: No cyanosis, clubbing; 2+edema Neuro: Cranial nerves II through XII are grossly intact without focal deficits Psych: Flat mood and affect Results Laboratory Results: 09/01/16 05:20 09/01/16 05:20 08/31/16 09/01/16 09/01/16 07:05 05:20 05:20 WBC 9.7 RBC 2.46 L Hgb 7.9 L Hct 23.4 L MCV 95 MCH 31.9 MCHC 33.6 RDW 14.6 H Plt Count 139 L Sodium 141.5 Potassium 3.7 Chloride 99 Carbon Dioxide 30 Anion Gap 13 BUN 49 H Creatinine 3.98 H Est GFR ( Amer) 18 L Est GFR (Non-Af Amer) 15 L Glucose 132 H Calcium 7.7 L Blood Type B POSITIVE Antibody Screen NEGATIVE Impressions: Hip/Pelvis X-Ray 08/29/16 17:28 IMPRESSION: SATISFACTORY POSTOPERATIVE RIGHT HIP. Chest X-Ray 08/31/16 00:00 IMPRESSION: NO ACUTE RADIOGRAPHIC FINDING IN THE CHEST. Assessment & Plan - Diagnosis (1) Acute blood loss anemia Is this a current diagnosis for this admission?: YesPlan: Patient is given 2 units packed red blood cells on 08/31/2016. With an inappropriate response in his hemoglobin. Patient has a significant ecchymosis on the inside of his right lower extremity and this may be some other source of blood loss. Patient's hip does not appear to be taut and nor is it draining. Patient has had a bowel movement and therefore do not feel that this is secondary to GI losses at this time. Will give an additional unit of packed red blood cells today. (2) COPD (chronic obstructive pulmonary disease) Qualifiers: COPD type: unspecified COPD Qualified Code(s): J44.9 - Chronic obstructive pulmonary disease, unspecified Is this a current diagnosis for this admission?: Yes (3) End-stage renal disease on hemodialysis Is this a current diagnosis for this admission?: YesPlan: Defer to nephrology (4) Fracture of femoral neck, right, closed Qualifiers: Encounter type: subsequent encounter Fracture healing: with routine healing Qualified Code(s): S72.001D - Fracture of unspecified part of neck of right femur, subsequent encounter for closed fracture with routine healing Is this a current diagnosis for this admission?: YesPlan: Defer to orthopedics (5) History of renal cell cancer Is this a current diagnosis for this admission?: Yes (6) Thrombocytopenia Is this a current diagnosis for this admission?: Yes (7) H/O endovascular stent graft for abdominal aortic aneurysm Is this a current diagnosis for this admission?: No (8) PVD (peripheral vascular disease) Is this a current diagnosis for this admission?: Yes (9) Pneumonia Qualifiers: Pneumonia type: due to unspecified organism Laterality: right Lung location: middle lobe of lung Qualified Code(s): J18.1 - Lobar pneumonia , unspecified organism Is this a current diagnosis for this admission?: YesPlan: continue on augmentin and check am cxr - Time Time Spent with patient: 25-34 minutes Medications reviewed and adjusted accordingly: Yes
[2016-09-01] MEDS: ATORVASTATIN CALCIUM 20 MG TABLET PO SCH (22:41)
[2016-09-02] MEDS: IPRATROPIUM/ALBUTEROL 0.5-2.5 MG/3 ML AMPUL NEB SCH ×4 (02:15→20:20)
[2016-09-02] MEDS: LACTULOSE SYRUP 20 GM/30 ML UDCUP PO SCH ×3 (02:31→11:52)
[2016-09-02 06:38] LABS: ABSOLUTE BASOPHILS # (AUTO) 0.1 10^3/uL (0.0-0.2); ABSOLUTE EOSINOPHILS # (AUTO) 0.1 10^3/uL (0.0-0.6); ABSOLUTE LYMPHOCYTES (AUTO) 1.1 10^3/uL (0.5-4.7); ABSOLUTE MONOCYTES (AUTO) 1.2 10^3/uL (0.1-1.4); ABSOLUTE NEUT (AUTO) 9.2 10^3/uL (1.7-8.2); BASOPHILS % (AUTO) 0.5 % (0-2); HEMATOCRIT 28.2 % (37.9-51.0); HEMOGLOBIN 9.3 g/dL (13.5-17.0); HGB HCT DIFFERENCE -0.3; LYMPHOCYTES % (AUTO) 9.6 % (13-45); MEAN CORPUSCULAR HEMOGLOBIN 30.5 pg (27.0-33.4); MEAN CORPUSCULAR VOLUME 93 fl (80-97); MONOCYTES % (AUTO) 10.1 % (3-13); RED BLOOD COUNT 3.04 10^6/uL (4.35-5.55); RED CELL DISTRIBUTION WIDTH 16.9 % (11.5-14.0); SEGMENTED NEUTROPHILS % (AUTO) 78.8 % (42-78); WHITE BLOOD COUNT 11.7 10^3/uL (4.0-10.5)
[2016-09-02] MEDS: LANSOPRAZOLE 30 MG TAB.RAP.DR PO SCH (07:03)
[2016-09-02] MEDS: LACTOBACILLUS ACIDOPHILUS 250 MG TAB PO SCH ×2 (11:47→17:44)
[2016-09-02] MEDS: ISOSORBIDE DINITRATE 20 MG TABLET PO SCH (11:48)
[2016-09-02] MEDS: ASPIRIN 81 MG TABLET, CHEWABLE PO SCH (11:48)
[2016-09-02] MEDS: AMOXICILLIN TR/POT CLAVULANATE 500-125 MG TAB PO SCH (11:50)
[2016-09-02] MEDS: DOCUSATE SODIUM 100 MG CAPSULE PO SCH ×2 (11:52→17:45)
[2016-09-02] MEDS ORDERED: CLINDAMYCIN HCL 150 MG CAPSULE PO SCH (14:00)
[2016-09-02 16:07] LABS: APPEARANCE,URINE SLIGHTLY-CLOUDY; BILIRUBIN,URINE NEGATIVE (NEGATIVE); GLUCOSE, URINE NEGATIVE (NEGATIVE); KETONES,URINE TRACE mg/dL (NEGATIVE); LEUKOCYTE ESTERASE,URINE TRACE (NEGATIVE); NITRITE,URINE NEGATIVE (NEGATIVE); PROTEIN,URINE 100 mg/dL (NEGATIVE); URINE SPECIFIC GRAVITY 1.018; UROBILINOGEN,URINE NEGATIVE mg/dL (<2.0)
[2016-09-02] MEDS ORDERED: INSULIN LISPRO 100 UNIT/ML 3 ML VIAL SUBCUT PRN (17:20)
[2016-09-02] MEDS ORDERED: GLUCAGON,HUMAN RECOMB 1 MG INJ IM PRN (17:20)
[2016-09-02] MEDS ORDERED: DEXTROSE 40% GEL 15 GM TUBE PO PRN ×2 (17:20)
[2016-09-02] MEDS ORDERED: DEXTROSE 50%-WATER 25 GM/50 ML DISP.SYRIN IV PRN ×2 (17:20)
--- NOTE | 2016-09-02 17:35 | PDOC PROGRESS REPORT ---
Subjective Progress Note for:: 09/02/16 Subjective:: Patient is sitting in the room with his gown off when I see him and he reports that he was sweating and hot. Evaluation at bedside reveals that he's afebrile. Patient is slightly confused. Patient is now having loose stools. Patient denies chest pain, shortness of breath, abdominal pain, nausea, vomiting , fevers, constipation, headache, new onset weakness. Physical Exam Vital Signs: Temp Pulse Resp BP Pulse Ox 98.8 F 91 20 109/63 94 09/02/16 05:16 09/02/16 05:16 09/02/16 05:16 09/02/16 05:16 09/02/16 05:16 Intake & Output 09/01/16 09/02/16 09/03/16 06:59 06:59 06:59 Intake Total 2156 420 Output Total 1270 2800 Balance 886 -2380 Weight 94 kg 93.6 kg Exam: General: Awake alert and oriented 2, no acute respiratory distress HEENT: AT/NC, PERRL, EOMI, oropharynx is moist, pink, no scleral icterus, no conjunctival injection Neck: No JVD, trachea midline Chest: Right middle lobe rhonchi CV: Regular rate and rhythm, normal S1 and S2, no rub, or gallop Abdomen: Soft, nontender to palpation, nondistended, diminished bowel sounds; no rebound, rigidity, or guarding Extremities: No cyanosis, clubbing; 2+edema; large right antecubital ecchymosis Neuro: Cranial nerves II through XII are grossly intact without focal deficits Psych: Flat mood and affect Results Laboratory Results: 09/02/16 05:38 09/01/16 05:20 08/31/16 09/02/16 07:05 05:38 WBC 11.7 H RBC 3.04 L Hgb 9.3 L Hct 28.2 L MCV 93 MCH 30.5 MCHC 33.0 RDW 16.9 H Plt Count 141 L Seg Neutrophils % 78.8 H Lymphocytes % 9.6 L Monocytes % 10.1 Eosinophils % 1.0 Basophils % 0.5 Absolute Neutrophils 9.2 H Absolute Lymphocytes 1.1 Absolute Monocytes 1.2 Absolute Eosinophils 0.1 Absolute Basophils 0.1 Blood Type B POSITIVE Antibody Screen NEGATIVE Impressions: Hip/Pelvis X-Ray 08/29/16 17:28 IMPRESSION: SATISFACTORY POSTOPERATIVE RIGHT HIP. Chest X-Ray 09/01/16 00:00 IMPRESSION: NO ACUTE CARDIOPULMONARY PROCESS. NO SIGNIFICANT CHANGE PRIOR STUDY Assessment & Plan - Diagnosis (1) Acute blood loss anemia Is this a current diagnosis for this admission?: YesPlan: Patient is given 2 units packed red blood cells on 08/31/2016. With an inappropriate response in his hemoglobin. Patient has a significant ecchymosis on the inside of his right lower extremity and this may be some other source of blood loss. Patient's hip does not appear to be taut and nor is it draining. Patient has not had any hematochezia, melena, or hematemesis. Patient is on Prevacid and have added Carafate. (2) COPD (chronic obstructive pulmonary disease) Qualifiers: COPD type: unspecified COPD Qualified Code(s): J44.9 - Chronic obstructive pulmonary disease, unspecified Is this a current diagnosis for this admission?: Yes (3) End-stage renal disease on hemodialysis Is this a current diagnosis for this admission?: YesPlan: Patient has hemodialysis on Sunday and Sunday. Defer to nephrology (4) Fracture of femoral neck, right, closed Qualifiers: Encounter type: subsequent encounter Fracture healing: with routine healing Qualified Code(s): S72.001D - Fracture of unspecified part of neck of right femur, subsequent encounter for closed fracture with routine healing Is this a current diagnosis for this admission?: YesPlan: Defer to orthopedics (5) History of renal cell cancer Is this a current diagnosis for this admission?: Yes (6) Thrombocytopenia Is this a current diagnosis for this admission?: Yes (7) H/O endovascular stent graft for abdominal aortic aneurysm Is this a current diagnosis for this admission?: No (8) PVD (peripheral vascular disease) Is this a current diagnosis for this admission?: Yes (9) Pneumonia Qualifiers: Pneumonia type: due to unspecified organism Laterality: right Lung location: middle lobe of lung Qualified Code(s): J18.1 - Lobar pneumonia , unspecified organism Is this a current diagnosis for this admission?: YesPlan: Upon my own review of patient's chest x-ray feel that he does have a right middle lobe pneumonia. Patient is growing increasingly confused and congested. Will transition patient to Zosyn and add nebulized treatments and Mucinex. Will transfer patient to [facility]. (10) Obesity (BMI 30.0-34.9) Is this a current diagnosis for this admission?: Yes - Time Time Spent with patient: 25-34 minutes Medications reviewed and adjusted accordingly: Yes - Inpatient Certification Based on my medical assessment, after consideration of the patient's comorbidities, presenting symptoms, or acuity I expect that the services needed warrant INPATIENT care.: Yes I certify that my determination is in accordance with my understanding of Medicare's requirements for reasonable and necessary INPATIENT services [42 CFR 412.3e].: Yes Medical Necessity: Need for Nebulizer Therapy and Monitoring of Response, Need for IV Antibiotics - Plan Summary Plan Summary: Have discussed this plan with patient's was in agreement.
[2016-09-02] MEDS: ACETAMINOPHEN 325 MG TABLET PO PRN (17:44)
[2016-09-02] MEDS: SUCRALFATE SUSP 1 GM/10 ML UDCUP PO SCH (17:44)
[2016-09-02] MEDS ORDERED: PIPERACILLIN/TAZOBACTAM 2.25 GM VIAL IV PRN (17:45)
[2016-09-02] MEDS ORDERED: PIPERACILLIN SODIUM/TAZOBACTAM 2.25 GM in NORMAL SALINE 50 ML IV SCH (18:00)
[2016-09-02] MEDS ORDERED: PIPERACILLIN/TAZOBACTAM 2.25 GM VIAL IV ONE (19:12)
[2016-09-02] MEDS: PIPERACILLIN SODIUM/TAZOBACTAM 2.25 GM in NORMAL SALINE 50 ML IV SCH (20:33)
[2016-09-03] MEDS: ATORVASTATIN CALCIUM 20 MG TABLET PO SCH ×2 (02:06→21:57)
[2016-09-03] MEDS: SUCRALFATE SUSP 1 GM/10 ML UDCUP PO SCH ×4 (02:06→14:27)
[2016-09-03] MEDS: GUAIFENESIN 600 MG TABLET.SA PO SCH ×3 (02:06→21:57)
[2016-09-03] MEDS: ISOSORBIDE DINITRATE 20 MG TABLET PO SCH ×3 (02:06→21:57)
[2016-09-03] MEDS: IPRATROPIUM/ALBUTEROL 0.5-2.5 MG/3 ML AMPUL NEB SCH ×4 (02:15→19:25)
[2016-09-03] MEDS ORDERED: PIPERACILLIN/TAZOBACTAM 2.25 GM VIAL IV ONE (02:48)
[2016-09-03] MEDS: PIPERACILLIN SODIUM/TAZOBACTAM 2.25 GM in NORMAL SALINE 50 ML IV SCH ×3 (03:22→21:59)
[2016-09-03] MEDS ORDERED: LANSOPRAZOLE 30 MG TAB.RAP.DR PO SCH (06:00)
[2016-09-03] MEDS: ASPIRIN 81 MG TABLET, CHEWABLE PO SCH (10:00)
[2016-09-03] MEDS: LACTOBACILLUS ACIDOPHILUS 250 MG TAB PO SCH ×2 (10:00→17:53)
[2016-09-03] MEDS: DOCUSATE SODIUM 100 MG CAPSULE PO SCH ×2 (10:00→17:53)
[2016-09-03] MEDS: HALOPERIDOL LACTATE INJ 5 MG/1 ML VIAL IV PRN (14:54)
[2016-09-03] MEDS ORDERED: PANTOPRAZOLE SODIUM 40 MG VIAL IV ONE (15:00)
[2016-09-03 15:23] LABS: ABSOLUTE EOSINOPHILS # (AUTO) 0.2 10^3/uL (0.0-0.6); ABSOLUTE LYMPHOCYTES (AUTO) 1.1 10^3/uL (0.5-4.7); ABSOLUTE MONOCYTES (AUTO) 1.2 10^3/uL (0.1-1.4); ABSOLUTE NEUT (AUTO) 9.4 10^3/uL (1.7-8.2); BASOPHILS % (AUTO) 0.4 % (0-2); EOSINOPHILS % (AUTO) 1.8 % (0-6); HEMATOCRIT 22.4 % (37.9-51.0); HGB HCT DIFFERENCE 0.4; LYMPHOCYTES % (AUTO) 9.1 % (13-45); MEAN CORPUSCULAR HEMOGLOBIN 31.1 pg (27.0-33.4); MEAN CORPUSCULAR HGB CONC 33.7 g/dL (32.0-36.0); MEAN CORPUSCULAR VOLUME 92 fl (80-97); MONOCYTES % (AUTO) 9.7 % (3-13); RED BLOOD COUNT 2.43 10^6/uL (4.35-5.55); RED CELL DISTRIBUTION WIDTH 15.8 % (11.5-14.0); WHITE BLOOD COUNT 11.9 10^3/uL (4.0-10.5)
[2016-09-03 15:27] LABS: HEMOGLOBIN 7.6 g/dL (13.5-17.0)
[2016-09-03 15:38] LABS: ANION GAP 13 (5-19); BLOOD UREA NITROGEN 82 mg/dL (7-20); CARBON DIOXIDE 27 mmol/L (22-30); CHLORIDE 99 mmol/L (98-107); CREATININE RESULT 4.74 mg/dL (0.52-1.25); GLUCOSE 124 mg/dL (75-110); POTASSIUM 3.7 mmol/L (3.6-5.0); SODIUM 139.3 mmol/L (137-145)
[2016-09-03 15:48] LABS: CALCIUM 6.8 mg/dL (8.4-10.2)
[2016-09-03] MEDS ORDERED: NORMAL SALINE 250 ML IV PRN ×2 (15:55)
[2016-09-03] MEDS ORDERED: CALCIUM GLUCONATE 1000 MG/10 ML INJ IV ONE ×2 (15:57→17:45)
[2016-09-03 15:59] LABS: PROTHROMBIN TIME 17.6 SEC (11.4-15.4)
[2016-09-03 16:00] LABS: PARTIAL THROMBOPLASTIN TIME 45.6 SEC (23.5-35.8)
--- NOTE | 2016-09-03 16:12 | PDOC PROGRESS REPORT ---
Subjective Progress Note for:: 09/03/16 Subjective:: Patient denies any new issues. Patient is found to have coffee ground emesis on his chin. Patient had several dark BM today according to nursing. Patient denies any chest pain, abdominal pain, shortness of breath, nausea, vomiting, fever, chills. Physical Exam Vital Signs: Temp Pulse Resp BP Pulse Ox 99.1 F 84 20 106/48 L 100 09/03/16 03:24 09/03/16 03:24 09/03/16 03:24 09/03/16 03:24 09/03/16 03:24 Intake & Output 09/02/16 09/03/16 09/04/16 06:59 06:59 06:59 Intake Total 420 360 Output Total 2800 250 Balance -2380 110 Weight 93.6 kg 91.5 kg Exam: General: Awake alert and oriented 3, no acute respiratory distress HEENT: AT/NC, PERRL, EOMI, oropharynx is moist, periconjunctival pallor, no scleral icterus, no conjunctival injection Neck: No JVD, trachea midline Chest: Tachypnea, Right middle lobe rhonchi CV: Tachycardic, Regular rate and rhythm, normal S1 and S2, no rub, or gallop Abdomen: Soft, nontender to palpation, nondistended, diminished bowel sounds; no rebound, rigidity, or guarding Extremities: No cyanosis, clubbing; 2+edema; large right antecubital ecchymosis Neuro: Cranial nerves II through XII are grossly intact without focal deficits Psych: Flat mood and affect Results Laboratory Results: 09/02/16 05:38 09/01/16 05:20 09/02/16 09/02/16 15:30 23:50 Urine Color YELLOW Urine Appearance SLIGHTLY-CLOUDY Urine pH 6.0 Ur Specific Kiel 1.018 Urine Protein 100 H Urine Glucose (UA) NEGATIVE Urine Ketones TRACE H Urine Blood MODERATE H Urine Nitrite NEGATIVE Ur Leukocyte Esterase TRACE H Urine WBC (Auto) 7 Urine RBC (Auto) 3 Stool Occult Blood POSITIVE Impressions: Hip/Pelvis X-Ray 08/29/16 17:28 IMPRESSION: SATISFACTORY POSTOPERATIVE RIGHT HIP. Chest X-Ray 09/01/16 00:00 IMPRESSION: NO ACUTE CARDIOPULMONARY PROCESS. NO SIGNIFICANT CHANGE PRIOR STUDY Assessment & Plan - Diagnosis (1) Acute blood loss anemia Is this a current diagnosis for this admission?: YesPlan: Patient now with coffee-ground emesis. Heme positive stools. Patient's aspirin has been held. Patient is now on IV Protonix and Carafate. Surgery is being consulted for GI bleeding. (2) Coagulopathy Is this a current diagnosis for this admission?: YesPlan: Will obtain fibrinogen and fibrinogen degradation products as well as LDH to evaluate for possible DIC as a source for new bleeding. Patient's PT/INR and PTT are both elevated and will administer patient vitamin K for this. Will consider DDAVP to help stimulate platelets in the presence of renal failure. (3) GI hemorrhage Qualifiers: GI bleed type/associated pathology: unspecified gastrointestinal hemorrhage type Qualified Code(s): K92.2 - Gastrointestinal hemorrhage, unspecified Is this a current diagnosis for this admission?: YesPlan: Have transfer patient to the ICU for closer monitoring. Every 6 hours measures. Consulted surgery for endoscopy. Will transfuse to maintain a hemoglobin greater than 8. (4) Pneumonia Qualifiers: Pneumonia type: due to unspecified organism Laterality: right Lung location: middle lobe of lung Qualified Code(s): J18.1 - Lobar pneumonia , unspecified organism Is this a current diagnosis for this admission?: YesPlan: Upon my own review of patient's chest x-ray feel that he does have a right middle lobe pneumonia. Patient is growing increasingly confused and congested. Now on Zosyn day #2 and nebulized treatments and Mucinex. (5) COPD (chronic obstructive pulmonary disease) Qualifiers: COPD type: unspecified COPD Qualified Code(s): J44.9 - Chronic obstructive pulmonary disease, unspecified Is this a current diagnosis for this admission?: Yes (6) End-stage renal disease on hemodialysis Is this a current diagnosis for this admission?: YesPlan: Patient has hemodialysis on Sunday and Sunday. Defer to nephrology (7) Fracture of femoral neck, right, closed Qualifiers: Encounter type: subsequent encounter Fracture healing: with routine healing Qualified Code(s): S72.001D - Fracture of unspecified part of neck of right femur, subsequent encounter for closed fracture with routine healing Is this a current diagnosis for this admission?: YesPlan: Defer to orthopedics (8) History of renal cell cancer Is this a current diagnosis for this admission?: Yes (9) Thrombocytopenia Is this a current diagnosis for this admission?: YesPlan: Have held anticoagulation. (10) H/O endovascular stent graft for abdominal aortic aneurysm Is this a current diagnosis for this admission?: No (11) PVD (peripheral vascular disease) Is this a current diagnosis for this admission?: Yes (12) Obesity (BMI 30.0-34.9) Is this a current diagnosis for this admission?: Yes - Time Critical Time spent with patient: 35 or more minutes Medications reviewed and adjusted accordingly: Yes
[2016-09-03] MEDS ORDERED: PHYTONADIONE INJ 10 MG/1 ML AMPULE SUBCUT ONE (16:13)
[2016-09-03] MEDS ORDERED: CALCIUM GLUCONATE 2,000 MG in DEXTROSE 5%-WATER 100 ML IV ONE (17:00)
[2016-09-03 18:19] LABS: HEMATOCRIT 24.8 % (37.9-51.0); HEMOGLOBIN 8.2 g/dL (13.5-17.0); HGB HCT DIFFERENCE -0.2; MEAN CORPUSCULAR HEMOGLOBIN 30.7 pg (27.0-33.4); MEAN CORPUSCULAR HGB CONC 33.1 g/dL (32.0-36.0); MEAN CORPUSCULAR VOLUME 93 fl (80-97); RED BLOOD COUNT 2.67 10^6/uL (4.35-5.55); RED CELL DISTRIBUTION WIDTH 16.1 % (11.5-14.0); WHITE BLOOD COUNT 11.8 10^3/uL (4.0-10.5)
[2016-09-03] MEDS: PANTOPRAZOLE SODIUM 40 MG VIAL IV SCH (21:59)
[2016-09-04 00:37] LABS: HEMATOCRIT 25.4 % (37.9-51.0); HEMOGLOBIN 8.7 g/dL (13.5-17.0); HGB HCT DIFFERENCE 0.7; MEAN CORPUSCULAR HEMOGLOBIN 30.8 pg (27.0-33.4); MEAN CORPUSCULAR HGB CONC 34.2 g/dL (32.0-36.0); MEAN CORPUSCULAR VOLUME 90 fl (80-97); RED BLOOD COUNT 2.82 10^6/uL (4.35-5.55); RED CELL DISTRIBUTION WIDTH 16.4 % (11.5-14.0); WHITE BLOOD COUNT 10.7 10^3/uL (4.0-10.5)
[2016-09-04] MEDS: SUCRALFATE SUSP 1 GM/10 ML UDCUP PO SCH ×4 (01:13→18:24)
[2016-09-04] MEDS: IPRATROPIUM/ALBUTEROL 0.5-2.5 MG/3 ML AMPUL NEB SCH ×4 (02:40→20:46)
[2016-09-04] MEDS: HALOPERIDOL LACTATE INJ 5 MG/1 ML VIAL IV PRN ×2 (03:36→21:39)
[2016-09-04] MEDS: PIPERACILLIN SODIUM/TAZOBACTAM 2.25 GM in NORMAL SALINE 50 ML IV SCH ×3 (05:59→21:27)
[2016-09-04 06:37] LABS: ABSOLUTE BASOPHILS # (AUTO) 0.1 10^3/uL (0.0-0.2); ABSOLUTE EOSINOPHILS # (AUTO) 0.4 10^3/uL (0.0-0.6); ABSOLUTE LYMPHOCYTES (AUTO) 1.4 10^3/uL (0.5-4.7); ABSOLUTE MONOCYTES (AUTO) 0.9 10^3/uL (0.1-1.4); ABSOLUTE NEUT (AUTO) 6.9 10^3/uL (1.7-8.2); BASOPHILS % (AUTO) 0.5 % (0-2); EOSINOPHILS % (AUTO) 3.8 % (0-6); HEMATOCRIT 27.5 % (37.9-51.0); HEMOGLOBIN 9.4 g/dL (13.5-17.0); HGB HCT DIFFERENCE 0.7; LYMPHOCYTES % (AUTO) 14.3 % (13-45); MEAN CORPUSCULAR HEMOGLOBIN 30.7 pg (27.0-33.4); MEAN CORPUSCULAR HGB CONC 34.1 g/dL (32.0-36.0); MEAN CORPUSCULAR VOLUME 90 fl (80-97); MONOCYTES % (AUTO) 9.3 % (3-13); RED BLOOD COUNT 3.06 10^6/uL (4.35-5.55); RED CELL DISTRIBUTION WIDTH 16.5 % (11.5-14.0); SEGMENTED NEUTROPHILS % (AUTO) 72.1 % (42-78); WHITE BLOOD COUNT 9.6 10^3/uL (4.0-10.5)
[2016-09-04 06:40] LABS: PROTHROMBIN TIME 15.4 SEC (11.4-15.4)
[2016-09-04 06:41] LABS: PARTIAL THROMBOPLASTIN TIME 31.2 SEC (23.5-35.8)
[2016-09-04 06:43] LABS: ANION GAP 13 (5-19); BLOOD UREA NITROGEN 96 mg/dL (7-20); CALCIUM 7.2 mg/dL (8.4-10.2); CARBON DIOXIDE 25 mmol/L (22-30); CHLORIDE 102 mmol/L (98-107); CREATININE RESULT 5.01 mg/dL (0.52-1.25); GLUCOSE 115 mg/dL (75-110); POTASSIUM 3.6 mmol/L (3.6-5.0); SODIUM 140.4 mmol/L (137-145)
--- NOTE | 2016-09-04 08:23 | PDOC PROGRESS REPORT ---
Subjective Progress Note for:: 09/04/16 Subjective:: Patient seen this AM. Sitting in bed comfortably. Does not complain of pain. Physical Exam Vital Signs: Temp Pulse Resp BP Pulse Ox 98.1 F 73 14 111/45 L 95 09/04/16 07:57 09/04/16 07:57 09/04/16 07:57 09/04/16 07:57 09/04/16 07:57 Intake & Output 09/03/16 09/04/16 09/05/16 06:59 06:59 06:59 Intake Total 560 1152 Output Total 450 650 50 Balance 110 502 -50 Weight 91.5 kg 91.5 kg Musculoskeletal exam: PRESENT: other - Right Hip: Drsg c/d/i, moderate swelling w/ inguinal ecchymosis. Erythema/drainage. No Calf tenderness, intact PF/DF. Results Laboratory Results: 09/04/16 06:20 09/04/16 06:20 09/03/16 09/03/16 09/03/16 14:39 14:39 14:39 WBC 11.9 H RBC 2.43 L Hgb 7.6 L Hct 22.4 L MCV 92 MCH 31.1 MCHC 33.7 RDW 15.8 H Plt Count 149 L Seg Neutrophils % 79.0 H Lymphocytes % 9.1 L Monocytes % 9.7 Eosinophils % 1.8 Basophils % 0.4 Absolute Neutrophils 9.4 H Absolute Lymphocytes 1.1 Absolute Monocytes 1.2 Absolute Eosinophils 0.2 Absolute Basophils 0.0 Sodium 139.3 Potassium 3.7 Chloride 99 Carbon Dioxide 27 Anion Gap 13 BUN 82 H Creatinine 4.74 H Est GFR ( Amer) 15 L Est GFR (Non-Af Amer) 12 L Glucose 124 H Calcium 6.8 L* Stool Occult Blood Blood Type B POSITIVE Antibody Screen NEGATIVE 09/03/16 09/03/16 09/04/16 17:22 18:05 00:30 WBC 11.8 H 10.7 H RBC 2.67 L 2.82 L Hgb 8.2 L 8.7 L Hct 24.8 L 25.4 L MCV 93 90 MCH 30.7 30.8 MCHC 33.1 34.2 RDW 16.1 H 16.4 H Plt Count 155 142 L Seg Neutrophils % Lymphocytes % Monocytes % Eosinophils % Basophils % Absolute Neutrophils Absolute Lymphocytes Absolute Monocytes Absolute Eosinophils Absolute Basophils Sodium Potassium Chloride Carbon Dioxide Anion Gap BUN Creatinine Est GFR ( Amer) Est GFR (Non-Af Amer) Glucose Calcium Stool Occult Blood POSITIVE Blood Type Antibody Screen 09/04/16 09/04/16 06:20 06:20 WBC 9.6 RBC 3.06 L Hgb 9.4 L Hct 27.5 L MCV 90 MCH 30.7 MCHC 34.1 RDW 16.5 H Plt Count 144 L Seg Neutrophils % 72.1 Lymphocytes % 14.3 Monocytes % 9.3 Eosinophils % 3.8 Basophils % 0.5 Absolute Neutrophils 6.9 Absolute Lymphocytes 1.4 Absolute Monocytes 0.9 Absolute Eosinophils 0.4 Absolute Basophils 0.1 Sodium 140.4 Potassium 3.6 Chloride 102 Carbon Dioxide 25 Anion Gap 13 BUN 96 H Creatinine 5.01 H Est GFR ( Amer) 14 L Est GFR (Non-Af Amer) 11 L Glucose 115 H Calcium 7.2 L Stool Occult Blood Blood Type Antibody Screen Impressions: Hip/Pelvis X-Ray 08/29/16 17:28 IMPRESSION: SATISFACTORY POSTOPERATIVE RIGHT HIP. Chest X-Ray 09/01/16 00:00 IMPRESSION: NO ACUTE CARDIOPULMONARY PROCESS. NO SIGNIFICANT CHANGE PRIOR STUDY Assessment & Plan - Diagnosis (1) Fracture of femoral neck, right, closed Qualifiers: Encounter type: subsequent encounter Fracture healing: with routine healing Qualified Code(s): S72.001D - Fracture of unspecified part of neck of right femur, subsequent encounter for closed fracture with routine healing Is this a current diagnosis for this admission?: YesPlan: S/P Right Hip Hemiarthroplasty 1. PT w/ hip precautions 2. Acute on chronic anemia. Hct 27.5 appears to be stabilizing. No evidence of bleeding from the hip 3. PNA: as per Hospitalist recommendations.
--- NOTE | 2016-09-04 09:16 | PDOC CONSULTATION ---
Consultation Consult Date: 09/04/16 Attending physician:: BRODERICK THAKKAR Consult reason:: Upper endoscopy History of Present Illness Admission Date/PCP: 08/28/16 10:13 BRIAN RODRIGUEZ MD History of Present Illness: TYLOR JIMENEZ is a 76 year old male with history of end-stage renal disease on dialysis, coronary artery disease, hypertension, hyperlipidemia presents to the hospital because of pain in the right hip. Patient was sleeping when he fell out of bed. He woke up with hip pain under right and therefore the patient called his family really was brought to the emergency room and noted fracture on the right hip. The patient's dialysis is every Sunday and Sunday. He denies shortness of breath or chest pain at all. Likewise no chills or fever. He has chronic cough on and off. He takes inhalers at home but was never told he has COPD. Surgeons addendum: Patient has had coffee-ground emesis, and heme positive stool. No hematochezia and no pablo hematemesis. He has received a blood transfusion. Patient is somewhat disoriented, on dialysis currently. He nods when asked questions. 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 Musculoskeltal Medical History: Reports: Gout Psychiatric Medical History: Denies: Depression Infectious Medical History: Reports: Clostridium Difficile Past Surgical History Past Surgical History: Reports: Cardiac Catheterization, Coronary Artery Bypass Graft, Vascular Surgery - AAA repair, Other - Nephrostomy tube placement, creation of ileal conduit , prostatectomy Social History Lives with: Spouse/Significant other Smoking Status: Former Smoker Frequency of Alcohol Use: None Hx Recreational Drug Use: No Drugs: None Hx Prescription Drug Abuse: No - Advance Directive Resuscitation Status: Full Code Family History Family History: None Parental Family History Reviewed: Yes Children Family History Reviewed: Yes Sibling(s) Family History Reviewed.: Yes Medication/Allergy Home Medications: Albuterol Sulfate [Proair HFA] 2 puff IH Q6HP PRN 08/28/16 Atorvastatin Calcium [Lipitor 20 mg Tablet] 20 mg PO QHS 08/28/16 B Complex & C No.20/Folic Acid [Nephrocaps Softgel] 1 mg PO QHS 08/28/16 Isosorbide Dinitrate [Isordil Titradose 20 mg Tablet] 20 mg PO Q12 08/28/16 L. Rhamnosus GG/Inulin [Culturelle Capsule] 1 each PO DAILY 08/28/16 Magnesium Oxide [Mag-Ox 400 mg Tablet] 400 mg PO DAILY 08/28/16 Omeprazole 20 mg PO DAILY 08/28/16 Sodium Bicarbonate [Sodium Bicarbonate 650 mg Tablet] 650 mg PO Q12 08/28/16 Allergies/Adverse Reactions: ciprofloxacin [From Cipro] Allergy (Verified 08/30/14 11:49) Review of Systems ROS unobtainable: Due to endotracheal tube Physical Exam Vital Signs: Temp Pulse Resp BP Pulse Ox 98.1 F 73 12 107/56 L 92 09/04/16 07:57 09/04/16 07:57 09/04/16 08:24 09/04/16 08:24 09/04/16 08:24 Intake & Output 09/03/16 09/04/16 09/05/16 06:59 06:59 06:59 Intake Total 560 1152 Output Total 450 650 50 Balance 110 502 -50 Weight 91.5 kg 91.5 kg General appearance: PRESENT: no acute distress Head exam: PRESENT: normocephalic Respiratory exam: PRESENT: crackles GI/Abdominal exam: PRESENT: other - Soft, nontender, no peritoneal signs. Rectal exam: PRESENT: deferred Results Laboratory Results: 09/04/16 06:20 09/04/16 06:20 09/03/16 09/03/16 09/03/16 14:39 14:39 14:39 WBC 11.9 H RBC 2.43 L Hgb 7.6 L Hct 22.4 L MCV 92 MCH 31.1 MCHC 33.7 RDW 15.8 H Plt Count 149 L Seg Neutrophils % 79.0 H Lymphocytes % 9.1 L Monocytes % 9.7 Eosinophils % 1.8 Basophils % 0.4 Absolute Neutrophils 9.4 H Absolute Lymphocytes 1.1 Absolute Monocytes 1.2 Absolute Eosinophils 0.2 Absolute Basophils 0.0 Sodium 139.3 Potassium 3.7 Chloride 99 Carbon Dioxide 27 Anion Gap 13 BUN 82 H Creatinine 4.74 H Est GFR ( Amer) 15 L Est GFR (Non-Af Amer) 12 L Glucose 124 H Calcium 6.8 L* Stool Occult Blood Blood Type B POSITIVE Antibody Screen NEGATIVE 09/03/16 09/03/16 09/04/16 17:22 18:05 00:30 WBC 11.8 H 10.7 H RBC 2.67 L 2.82 L Hgb 8.2 L 8.7 L Hct 24.8 L 25.4 L MCV 93 90 MCH 30.7 30.8 MCHC 33.1 34.2 RDW 16.1 H 16.4 H Plt Count 155 142 L Seg Neutrophils % Lymphocytes % Monocytes % Eosinophils % Basophils % Absolute Neutrophils Absolute Lymphocytes Absolute Monocytes Absolute Eosinophils Absolute Basophils Sodium Potassium Chloride Carbon Dioxide Anion Gap BUN Creatinine Est GFR ( Amer) Est GFR (Non-Af Amer) Glucose Calcium Stool Occult Blood POSITIVE Blood Type Antibody Screen 09/04/16 09/04/16 06:20 06:20 WBC 9.6 RBC 3.06 L Hgb 9.4 L Hct 27.5 L MCV 90 MCH 30.7 MCHC 34.1 RDW 16.5 H Plt Count 144 L Seg Neutrophils % 72.1 Lymphocytes % 14.3 Monocytes % 9.3 Eosinophils % 3.8 Basophils % 0.5 Absolute Neutrophils 6.9 Absolute Lymphocytes 1.4 Absolute Monocytes 0.9 Absolute Eosinophils 0.4 Absolute Basophils 0.1 Sodium 140.4 Potassium 3.6 Chloride 102 Carbon Dioxide 25 Anion Gap 13 BUN 96 H Creatinine 5.01 H Est GFR ( Amer) 14 L Est GFR (Non-Af Amer) 11 L Glucose 115 H Calcium 7.2 L Stool Occult Blood Blood Type Antibody Screen Impressions: Hip/Pelvis X-Ray 08/29/16 17:28 IMPRESSION: SATISFACTORY POSTOPERATIVE RIGHT HIP. Chest X-Ray 09/01/16 00:00 IMPRESSION: NO ACUTE CARDIOPULMONARY PROCESS. NO SIGNIFICANT CHANGE PRIOR STUDY Assessment & Plan - Diagnosis (1) GI hemorrhage Qualifiers: GI bleed type/associated pathology: unspecified gastrointestinal hemorrhage type Qualified Code(s): K92.2 - Gastrointestinal hemorrhage, unspecified Is this a current diagnosis for this admission?: YesPlan: 1. We'll set patient up for upper endoscopy in the intensive care unit under sedation. 2. Patient's coag profile, platelets stable this morning. Plans are for DDAVP infusion prior to procedure.
[2016-09-04] MEDS ORDERED: DESMOPRESSIN ACETATE INJ 4 MCG/1 ML AMPULE IV ONE (09:30)
[2016-09-04] MEDS ORDERED: EPOETIN ALFA INJ 20000 UNIT/1 ML VIAL (RENAL) IV PRN ×2 (10:10→10:38)
--- NOTE | 2016-09-04 10:14 | PDOC PROGRESS REPORT ---
Subjective Progress Note for:: 09/04/16 Subjective:: Patient tolerated blood transfusion overnight. He's had no episodes of hematemesis or hematochezia. Patient denies any current complaints. Patient denies chest pain, shortness of breath, abdominal pain, nausea, vomiting, fevers , chills, diarrhea, constipation, headache, new onset weakness. Patient reports his pain is well-controlled. He is currently receiving dialysis and examination is done with his nurse and dialysis nurse present. Physical Exam Vital Signs: Temp Pulse Resp BP Pulse Ox 98.1 F 73 12 107/56 L 92 09/04/16 07:57 09/04/16 07:57 09/04/16 08:24 09/04/16 08:24 09/04/16 08:24 Intake & Output 09/03/16 09/04/16 09/05/16 06:59 06:59 06:59 Intake Total 560 1152 Output Total 450 650 50 Balance 110 502 -50 Weight 91.5 kg 91.5 kg Exam: General: Awake alert and oriented 3, no acute respiratory distress HEENT: AT/NC, PERRL, EOMI, oropharynx is moist, periconjunctival pallor, no scleral icterus, no conjunctival injection Neck: No JVD, trachea midline Chest: Right middle lobe rhonchi CV:Regular rate and rhythm, normal S1 and S2, no rub, or gallop Abdomen: Soft, nontender to palpation, nondistended, active bowel sounds; no rebound, rigidity, or guarding Extremities: No cyanosis, clubbing; trace edema; large right antecubital ecchymosis Neuro: Cranial nerves II through XII are grossly intact without focal deficits Psych: Flat mood and affect Results Laboratory Results: 09/04/16 06:20 09/04/16 06:20 09/03/16 09/03/16 09/03/16 14:39 14:39 14:39 WBC 11.9 H RBC 2.43 L Hgb 7.6 L Hct 22.4 L MCV 92 MCH 31.1 MCHC 33.7 RDW 15.8 H Plt Count 149 L Seg Neutrophils % 79.0 H Lymphocytes % 9.1 L Monocytes % 9.7 Eosinophils % 1.8 Basophils % 0.4 Absolute Neutrophils 9.4 H Absolute Lymphocytes 1.1 Absolute Monocytes 1.2 Absolute Eosinophils 0.2 Absolute Basophils 0.0 Sodium 139.3 Potassium 3.7 Chloride 99 Carbon Dioxide 27 Anion Gap 13 BUN 82 H Creatinine 4.74 H Est GFR ( Amer) 15 L Est GFR (Non-Af Amer) 12 L Glucose 124 H Calcium 6.8 L* Stool Occult Blood Blood Type B POSITIVE Antibody Screen NEGATIVE 09/03/16 09/03/16 09/04/16 17:22 18:05 00:30 WBC 11.8 H 10.7 H RBC 2.67 L 2.82 L Hgb 8.2 L 8.7 L Hct 24.8 L 25.4 L MCV 93 90 MCH 30.7 30.8 MCHC 33.1 34.2 RDW 16.1 H 16.4 H Plt Count 155 142 L Seg Neutrophils % Lymphocytes % Monocytes % Eosinophils % Basophils % Absolute Neutrophils Absolute Lymphocytes Absolute Monocytes Absolute Eosinophils Absolute Basophils Sodium Potassium Chloride Carbon Dioxide Anion Gap BUN Creatinine Est GFR ( Amer) Est GFR (Non-Af Amer) Glucose Calcium Stool Occult Blood POSITIVE Blood Type Antibody Screen 09/04/16 09/04/16 06:20 06:20 WBC 9.6 RBC 3.06 L Hgb 9.4 L Hct 27.5 L MCV 90 MCH 30.7 MCHC 34.1 RDW 16.5 H Plt Count 144 L Seg Neutrophils % 72.1 Lymphocytes % 14.3 Monocytes % 9.3 Eosinophils % 3.8 Basophils % 0.5 Absolute Neutrophils 6.9 Absolute Lymphocytes 1.4 Absolute Monocytes 0.9 Absolute Eosinophils 0.4 Absolute Basophils 0.1 Sodium 140.4 Potassium 3.6 Chloride 102 Carbon Dioxide 25 Anion Gap 13 BUN 96 H Creatinine 5.01 H Est GFR ( Amer) 14 L Est GFR (Non-Af Amer) 11 L Glucose 115 H Calcium 7.2 L Stool Occult Blood Blood Type Antibody Screen 09/02/16 15:30 Clean Catch Midstream Urine Culture - Final NO GROWTH 2 DAYS Impressions: Hip/Pelvis X-Ray 08/29/16 17:28 IMPRESSION: SATISFACTORY POSTOPERATIVE RIGHT HIP. Chest X-Ray 09/01/16 00:00 IMPRESSION: NO ACUTE CARDIOPULMONARY PROCESS. NO SIGNIFICANT CHANGE PRIOR STUDY Assessment & Plan - Diagnosis (1) Acute blood loss anemia Is this a current diagnosis for this admission?: YesPlan: Likely secondary to upper GI bleed. Patient has history of GERD per . Patient was on Prevacid here in house. Heme positive stools. Patient's aspirin has been held. Patient is now on IV Protonix and Carafate. Surgery is being consulted for GI bleeding. (2) Coagulopathy Is this a current diagnosis for this admission?: YesPlan: Fibrinogen and fibrinogen degradation products are normal.. Patient's PT/INR and PTT are both improved after vitamin K. Give DDAVP to help stimulate platelets in the presence of renal failure. (3) GI hemorrhage Qualifiers: GI bleed type/associated pathology: unspecified gastrointestinal hemorrhage type Qualified Code(s): K92.2 - Gastrointestinal hemorrhage, unspecified Is this a current diagnosis for this admission?: YesPlan: Continue CBC Every 6 hours. Plan for endoscopy today. Patient reports colonoscopy several years ago. Will transfuse to maintain a hemoglobin greater than 8. (4) Pneumonia Qualifiers: Pneumonia type: due to unspecified organism Laterality: right Lung location: middle lobe of lung Qualified Code(s): J18.1 - Lobar pneumonia , unspecified organism Is this a current diagnosis for this admission?: YesPlan: Upon my own review of patient's chest x-ray feel that he does have a right middle lobe pneumonia. Zosyn day #3 and nebulized treatments and Mucinex. (5) COPD (chronic obstructive pulmonary disease) Qualifiers: COPD type: unspecified COPD Qualified Code(s): J44.9 - Chronic obstructive pulmonary disease, unspecified Is this a current diagnosis for this admission?: Yes (6) End-stage renal disease on hemodialysis Is this a current diagnosis for this admission?: YesPlan: Patient has hemodialysis on Sunday and Sunday. Defer to nephrology (7) Fracture of femoral neck, right, closed Qualifiers: Encounter type: subsequent encounter Fracture healing: with routine healing Qualified Code(s): S72.001D - Fracture of unspecified part of neck of right femur, subsequent encounter for closed fracture with routine healing Is this a current diagnosis for this admission?: YesPlan: Defer to orthopedics (8) History of renal cell cancer Is this a current diagnosis for this admission?: Yes (9) Thrombocytopenia Is this a current diagnosis for this admission?: YesPlan: Have held DVT prophylaxis. (10) H/O endovascular stent graft for abdominal aortic aneurysm Is this a current diagnosis for this admission?: No (11) PVD (peripheral vascular disease) Is this a current diagnosis for this admission?: Yes (12) Obesity (BMI 30.0-34.9) Is this a current diagnosis for this admission?: Yes (13) Arm bruise Qualifiers: Encounter type: subsequent encounter Laterality: right Qualified Code(s): S40.021D - Contusion of right upper arm, subsequent encounter Is this a current diagnosis for this admission?: YesPlan: This is possibly secondary to infusion of blood product into patient's skin. Concerned prior that his fever may have been secondary to this. - Time Critical Time spent with patient: 35 or more minutes Medications reviewed and adjusted accordingly: Yes Anticipated discharge: Acute Rehab
[2016-09-04] MEDS: ISOSORBIDE DINITRATE 20 MG TABLET PO SCH ×2 (10:47→21:27)
[2016-09-04] MEDS: GUAIFENESIN 600 MG TABLET.SA PO SCH ×2 (10:47→21:28)
[2016-09-04] MEDS: DOCUSATE SODIUM 100 MG CAPSULE PO SCH ×2 (10:47→18:24)
[2016-09-04] MEDS: LACTOBACILLUS ACIDOPHILUS 250 MG TAB PO SCH ×2 (10:47→18:24)
[2016-09-04] MEDS: PANTOPRAZOLE SODIUM 40 MG VIAL IV SCH ×2 (12:09→21:27)
[2016-09-04] MEDS ORDERED: NALOXONE HCL INJ/PF 0.4 MG/1 ML SDV ONE (15:33)
[2016-09-04] MEDS ORDERED: ONDANSETRON HCL INJ/PF 4 MG/2 ML SDV ONE (15:33)
[2016-09-04] MEDS ORDERED: FLUMAZENIL INJ 0.5 MG/5 ML VIAL IV ONE (15:34)
[2016-09-04] MEDS ORDERED: PROMETHAZINE HCL INJ 25 MG/1 ML VIAL ONE (15:34)
[2016-09-04] MEDS ORDERED: FENTANYL CITRATE INJ/PF 100 MCG/2 ML AMPUL ONE (15:34)
[2016-09-04] MEDS ORDERED: MIDAZOLAM 2 MG/2 ML INJ ONE (15:34)
[2016-09-04] MEDS ORDERED: EPINEPHRINE INJ 1 MG/10 ML DISP.SYRIN ONE (15:35)
[2016-09-04] MEDS ORDERED: GLUCAGON,HUMAN RECOMB 1 MG INJ ONE (15:35)
--- NOTE | 2016-09-04 17:31 | Operative Report ---
Nonrecallable Operative Report DATE OF SURGERY: 09/04/16 PREOPERATIVE DIAGNOSIS: Upper GI bleed POSTOPERATIVE DIAGNOSIS: Same with 1. Gastritis proximal stomach. 2. Moderate size hiatal hernia OPERATION: Esophagogastroduodenoscopy with biopsy of gastric antrum SURGEON: ARACELI SALDIVAR ANESTHESIA: Moderate Sedation TISSUE REMOVED OR ALTERED: Biopsy of gastric antrum COMPLICATIONS: None ESTIMATED BLOOD LOSS: scant INTRAOPERATIVE FINDINGS: Below PROCEDURE: Patient was asked to monitoring devices in the intensive care unit. Conscious sedation was induced per endoscopy guideline. Patient was placed in the supine position and oral pharynx supported. Surgical plan, and surgical time out conducted Oral mouthpiece inserted. Possible total upper endoscope was inserted through the oropharynx down the hypopharynx through the esophagus stomach into the third portion of the duodenum. This was well tolerated by the patient. The duodenum was normal through the scope was withdrawn through the third second first portions of the duodenum. No evidence of peptic ulcer disease. There was a lot of bile in the duodenum. The pylorus was carefully inspected. There is no evidence of pyloric channel ulcer. The scope was brought back through into the stomach. There was a moderate size hiatal hernia approximately 4 cm in length ; there was chronic gastritis primarily involving the greater curvature of the stomach. The proximal stomach had streaking and erythematous changes consistent with gastritis. No pablo ulcer seen. No active bleeding and no clots. Photos were taken. Scope was brought back through the GE junction after obtaining a biopsy the greater curvature the stomach with cold forceps device which was sent for CLOtest and histologic analysis. The esophagus was unremarkable. No evidence of varices tumor or ulceration. No biopsies obtained. The scope was brought back to the patient's oropharynx. Tolerated procedure well. Care was resumed by the nursing staff.
--- NOTE | 2016-09-04 17:53 | PDOC PROGRESS REPORT ---
Subjective Progress Note for:: 09/04/16 Subjective:: I saw patient on dialysis this morning at around 8:30 AM. Events yesterday and overnight reviewed. Apparently the patient was transferred to ICU because of hypotension and possible GI bleed. Patient was transfused 2 units of packed RBC yesterday. When I talked to the patient he really doesn't have any complaints but of course he is not very reliable given his baseline dementia. There was a report that he has vomited coffee ground material yesterday prior to transferred to ICU. His blood pressure is still somewhat lowish this morning. However it stabilized throughout the treatment even with ultrafiltration. Patient has tolerated dialysis this morning. He also underwent EGD after dialysis showing gastritis done by Dr. Huggins. Physical Exam Vital Signs: Temp Pulse Resp BP Pulse Ox 98.9 F 87 16 113/58 L 96 09/04/16 16:48 09/04/16 17:05 09/04/16 17:05 09/04/16 17:05 09/04/16 17:05 Intake & Output 09/03/16 09/04/16 09/05/16 06:59 06:59 06:59 Intake Total 560 1152 100 Output Total 543 226 4855 Balance 110 502 -2060 Weight 91.5 kg 91.5 kg Vital signs during dialysis this morning when I saw him: Blood pressure 95/51, heart rate of 77, saturation 92%, respiration rate of 17. Exam: General appearance: PRESENT: no acute distress, cooperative, well-developed, well-nourished Head exam: PRESENT: atraumatic, normocephalic Eye exam: PRESENT: conjunctiva pale, PERRLA. ABSENT: scleral icterus Neck exam: ABSENT: JVD Respiratory exam: PRESENT: Diminished breath sounds. ABSENT: crackles, rales, rhonchi, unlabored, wheezes Cardiovascular exam: PRESENT: Regular rate rhythm -+S1, +S2. ABSENT: diastolic murmur, systolic murmur GI/Abdominal exam: PRESENT: normal bowel sounds, soft. ABSENT: guarding, mass, tenderness Extremities exam: ABSENT: No edema Neurological exam: PRESENT: alert, awake, oriented to person, and place. Skin exam: PRESENT: dry, warm, Results Laboratory Results: 09/04/16 06:20 09/04/16 06:20 09/03/16 09/03/16 09/03/16 14:39 17:22 18:05 WBC 11.8 H RBC 2.67 L Hgb 8.2 L Hct 24.8 L MCV 93 MCH 30.7 MCHC 33.1 RDW 16.1 H Plt Count 155 Seg Neutrophils % Lymphocytes % Monocytes % Eosinophils % Basophils % Absolute Neutrophils Absolute Lymphocytes Absolute Monocytes Absolute Eosinophils Absolute Basophils Sodium Potassium Chloride Carbon Dioxide Anion Gap BUN Creatinine Est GFR ( Amer) Est GFR (Non-Af Amer) Glucose Calcium Stool Occult Blood POSITIVE Blood Type B POSITIVE Antibody Screen NEGATIVE 09/04/16 09/04/16 09/04/16 00:30 06:20 06:20 WBC 10.7 H 9.6 RBC 2.82 L 3.06 L Hgb 8.7 L 9.4 L Hct 25.4 L 27.5 L MCV 90 90 MCH 30.8 30.7 MCHC 34.2 34.1 RDW 16.4 H 16.5 H Plt Count 142 L 144 L Seg Neutrophils % 72.1 Lymphocytes % 14.3 Monocytes % 9.3 Eosinophils % 3.8 Basophils % 0.5 Absolute Neutrophils 6.9 Absolute Lymphocytes 1.4 Absolute Monocytes 0.9 Absolute Eosinophils 0.4 Absolute Basophils 0.1 Sodium 140.4 Potassium 3.6 Chloride 102 Carbon Dioxide 25 Anion Gap 13 BUN 96 H Creatinine 5.01 H Est GFR ( Amer) 14 L Est GFR (Non-Af Amer) 11 L Glucose 115 H Calcium 7.2 L Stool Occult Blood Blood Type Antibody Screen 09/02/16 15:30 Clean Catch Midstream Urine Culture - Final NO GROWTH 2 DAYS Impressions: Hip/Pelvis X-Ray 08/29/16 17:28 IMPRESSION: SATISFACTORY POSTOPERATIVE RIGHT HIP. Chest X-Ray 09/01/16 00:00 IMPRESSION: NO ACUTE CARDIOPULMONARY PROCESS. NO SIGNIFICANT CHANGE PRIOR STUDY Assessment & Plan - Diagnosis (1) End-stage renal disease on hemodialysis Is this a current diagnosis for this admission?: YesPlan: We did dialysis today for 3 hours, using the patient's AV fistula, with 3 potassium bath, blood flow rate of 450 mL per minute, dialysate flow rate of 600 mL per minute, ultrafiltration 2 L, no heparin and Procrit with 20,000 units during dialysis intravenously. Patient tolerated dialysis without any issues. He remained hemodynamically stable with acceptable blood pressure throughout treatment. (2) Fracture of femoral neck, right, closed Qualifiers: Encounter type: subsequent encounter Fracture healing: with routine healing Qualified Code(s): S72.001D - Fracture of unspecified part of neck of right femur, subsequent encounter for closed fracture with routine healing Is this a current diagnosis for this admission?: YesPlan: Status post right hemiarthroplasty on August 29. Patient is awaiting rehabilitation placement. (3) Anemia, chronic disease Is this a current diagnosis for this admission?: YesPlan: Patient was given Procrit 20,000 units today. Also transfused 2 units packed RBC yesterday. This is exacerbated by possible GI bleed which turned out to be a due to gastritis from EGD done today. (4) Hypertension Qualifiers: Hypertension type: essential hypertension Qualified Code(s): I10 - Essential (primary) hypertension Is this a current diagnosis for this admission?: YesPlan: Currently within acceptable limits. (5) Pneumonia Qualifiers: Pneumonia type: due to unspecified organism Laterality: right Lung location: middle lobe of lung Qualified Code(s): J18.1 - Lobar pneumonia , unspecified organism Is this a current diagnosis for this admission?: YesPlan: On antibiotics per primary service. (6) Thrombocytopenia Is this a current diagnosis for this admission?: YesPlan: Mild. Heparin has been discontinued. - Time Time with patient: 15-25 minutes
[2016-09-04] MEDS: ATORVASTATIN CALCIUM 20 MG TABLET PO SCH (21:28)
[2016-09-05] MEDS: SUCRALFATE SUSP 1 GM/10 ML UDCUP PO SCH ×4 (00:38→17:01)
[2016-09-05] MEDS: IPRATROPIUM/ALBUTEROL 0.5-2.5 MG/3 ML AMPUL NEB SCH ×4 (02:36→19:52)
[2016-09-05 04:38] LABS: ABSOLUTE EOSINOPHILS # (AUTO) 0.2 10^3/uL (0.0-0.6); ABSOLUTE LYMPHOCYTES (AUTO) 1.5 10^3/uL (0.5-4.7); ABSOLUTE MONOCYTES (AUTO) 1.2 10^3/uL (0.1-1.4); ABSOLUTE NEUT (AUTO) 8.3 10^3/uL (1.7-8.2); BASOPHILS % (AUTO) 0.4 % (0-2); EOSINOPHILS % (AUTO) 2.2 % (0-6); HEMATOCRIT 26.4 % (37.9-51.0); HGB HCT DIFFERENCE 0.6; LYMPHOCYTES % (AUTO) 13.4 % (13-45); MEAN CORPUSCULAR HEMOGLOBIN 30.4 pg (27.0-33.4); MEAN CORPUSCULAR VOLUME 89 fl (80-97); MONOCYTES % (AUTO) 10.8 % (3-13); RED BLOOD COUNT 2.95 10^6/uL (4.35-5.55); RED CELL DISTRIBUTION WIDTH 16.2 % (11.5-14.0); SEGMENTED NEUTROPHILS % (AUTO) 73.2 % (42-78); WHITE BLOOD COUNT 11.3 10^3/uL (4.0-10.5)
[2016-09-05 04:50] LABS: ANION GAP 10 (5-19); CALCIUM 7.1 mg/dL (8.4-10.2); CARBON DIOXIDE 30 mmol/L (22-30); CHLORIDE 96 mmol/L (98-107); CREATININE RESULT 3.69 mg/dL (0.52-1.25); GLUCOSE 118 mg/dL (75-110); POTASSIUM 3.5 mmol/L (3.6-5.0); SODIUM 135.5 mmol/L (137-145)
[2016-09-05 05:09] LABS: BLOOD UREA NITROGEN 59 mg/dL (7-20)
[2016-09-05] MEDS: PIPERACILLIN SODIUM/TAZOBACTAM 2.25 GM in NORMAL SALINE 50 ML IV SCH ×3 (05:33→21:12)
--- NOTE | 2016-09-05 08:03 | PDOC PROGRESS REPORT ---
Subjective Progress Note for:: 09/05/16 Subjective:: Patient seen this morning. Lying in bed comfortably. Patient received EGD yesterday. Currently not complaining of hip discomfort. Physical Exam Vital Signs: Temp Pulse Resp BP Pulse Ox 98.1 F 82 17 103/57 L 100 09/05/16 04:00 09/05/16 02:35 09/05/16 06:01 09/05/16 06:00 09/05/16 06:01 Intake & Output 09/04/16 09/05/16 09/06/16 06:59 06:59 06:59 Intake Total 1152 681 Output Total 650 2360 Balance 502 -1679 Weight 91.5 kg Musculoskeletal exam: PRESENT: other - Right hip: Dressing clean/dry/intact no erythema or drainage. Inguinal ecchymosis postsurgical in nature. Intact plantar flexion/dorsiflexion. No calf tenderness. Results Laboratory Results: 09/05/16 03:46 09/05/16 03:46 09/05/16 09/05/16 03:46 03:46 WBC 11.3 H RBC 2.95 L Hgb 9.0 L Hct 26.4 L MCV 89 MCH 30.4 MCHC 34.0 RDW 16.2 H Plt Count 176 Seg Neutrophils % 73.2 Lymphocytes % 13.4 Monocytes % 10.8 Eosinophils % 2.2 Basophils % 0.4 Absolute Neutrophils 8.3 H Absolute Lymphocytes 1.5 Absolute Monocytes 1.2 Absolute Eosinophils 0.2 Absolute Basophils 0.0 Sodium 135.5 L Potassium 3.5 L Chloride 96 L Carbon Dioxide 30 Anion Gap 10 BUN 59 H D Creatinine 3.69 H Est GFR ( Amer) 20 L Est GFR (Non-Af Amer) 16 L Glucose 118 H Calcium 7.1 L 09/02/16 15:30 Clean Catch Midstream Urine Culture - Final NO GROWTH 2 DAYS Impressions: Hip/Pelvis X-Ray 08/29/16 17:28 IMPRESSION: SATISFACTORY POSTOPERATIVE RIGHT HIP. Chest X-Ray 09/01/16 00:00 IMPRESSION: NO ACUTE CARDIOPULMONARY PROCESS. NO SIGNIFICANT CHANGE PRIOR STUDY Assessment & Plan - Diagnosis (1) Fracture of femoral neck, right, closed Qualifiers: Encounter type: subsequent encounter Fracture healing: with routine healing Qualified Code(s): S72.001D - Fracture of unspecified part of neck of right femur, subsequent encounter for closed fracture with routine healing Is this a current diagnosis for this admission?: YesPlan: Status post right hip hemiarthroplasty #1 physical therapy with hip precautions #2 acute on chronic anemia with upper GI bleed defer to general surgery #3 pharmacologic DVT prophylaxis held secondary to risk of bleeding which out way risk of thromboembolism, continue mechanical prophylaxis
[2016-09-05] MEDS: PANTOPRAZOLE SODIUM 40 MG VIAL IV SCH ×2 (09:40→21:12)
[2016-09-05] MEDS: FERROUS SULFATE 325 MG TABLET PO SCH (09:41)
[2016-09-05] MEDS: GUAIFENESIN 600 MG TABLET.SA PO SCH ×2 (09:41→21:12)
[2016-09-05] MEDS: ASPIRIN 81 MG TABLET, ENT COATED PO SCH (09:41)
[2016-09-05] MEDS: ISOSORBIDE DINITRATE 20 MG TABLET PO SCH ×2 (09:41→21:12)
[2016-09-05] MEDS: LACTOBACILLUS ACIDOPHILUS 250 MG TAB PO SCH ×2 (09:41→17:02)
[2016-09-05] MEDS: DOCUSATE SODIUM 100 MG CAPSULE PO SCH ×2 (09:58→17:02)
[2016-09-05] MEDS: ACETAMINOPHEN 325 MG TABLET PO PRN (17:01)
--- NOTE | 2016-09-05 18:09 | PDOC PROGRESS REPORT ---
Subjective Progress Note for:: 09/05/16 Subjective:: No issues reported overnight. Patient without pain or other complaints. Patient denies fever, chills, headache, new focal weakness, chest pain, shortness of breath, abdominal pain, nausea, vomiting, diarrhea, constipation. Physical Exam Vital Signs: Temp Pulse Resp BP Pulse Ox 98.7 F 93 19 100/58 L 92 09/05/16 16:00 09/05/16 16:00 09/05/16 16:00 09/05/16 16:00 09/05/16 16:00 Intake & Output 09/04/16 09/05/16 09/06/16 06:59 06:59 06:59 Intake Total 1152 681 714 Output Total 650 2360 200 Balance 502 -6889 514 Weight 91.5 kg GENERAL: No acute distress HEENT: Conjunctiva clear, nonicteric, moist mucous membranes, no JVD, midline trachea RESPIRATORY: Clear to auscultation bilaterally, no wheezes, no rhonchi CARDIAC: Regular rate and rhythm, no murmurs/gallops/rubs ABDOMEN: Soft, nondistended, nontender, positive bowel sounds, no rebound, no guarding EXTREMETIES: No edema, cyanosis, clubbing NEUROLOGIC: Alert, oriented to person/place/time, CN's grossly intact, no focal deficits SKIN: No rash, wounds PSYCH: Normal mood, normal affect Results Laboratory Results: 09/05/16 03:46 09/05/16 03:46 09/05/16 09/05/16 03:46 03:46 WBC 11.3 H RBC 2.95 L Hgb 9.0 L Hct 26.4 L MCV 89 MCH 30.4 MCHC 34.0 RDW 16.2 H Plt Count 176 Seg Neutrophils % 73.2 Lymphocytes % 13.4 Monocytes % 10.8 Eosinophils % 2.2 Basophils % 0.4 Absolute Neutrophils 8.3 H Absolute Lymphocytes 1.5 Absolute Monocytes 1.2 Absolute Eosinophils 0.2 Absolute Basophils 0.0 Sodium 135.5 L Potassium 3.5 L Chloride 96 L Carbon Dioxide 30 Anion Gap 10 BUN 59 H D Creatinine 3.69 H Est GFR ( Amer) 20 L Est GFR (Non-Af Amer) 16 L Glucose 118 H Calcium 7.1 L Impressions: Hip/Pelvis X-Ray 08/29/16 17:28 IMPRESSION: SATISFACTORY POSTOPERATIVE RIGHT HIP. Chest X-Ray 09/01/16 00:00 IMPRESSION: NO ACUTE CARDIOPULMONARY PROCESS. NO SIGNIFICANT CHANGE PRIOR STUDY Assessment & Plan - Diagnosis (1) Fracture of femoral neck, right, closed Qualifiers: Encounter type: subsequent encounter Fracture healing: with routine healing Qualified Code(s): S72.001D - Fracture of unspecified part of neck of right femur, subsequent encounter for closed fracture with routine healing Is this a current diagnosis for this admission?: YesPlan: Status post right hip hemiarthroplasty on 08/29/[address] Quang Harrell. Continue physical therapy. Patient will need to go to rehabilitation. (2) Systemic inflammatory response syndrome (SIRS) Is this a current diagnosis for this admission?: Yes (3) Acute blood loss anemia Is this a current diagnosis for this admission?: YesPlan: Status post transfusion of total 5 units PRBC. Start iron supplementation. Continue Procrit. (4) GI hemorrhage Qualifiers: GI bleed type/associated pathology: unspecified gastrointestinal hemorrhage type Qualified Code(s): K92.2 - Gastrointestinal hemorrhage, unspecified Is this a current diagnosis for this admission?: YesPlan: EGD with gastritis, no acute bleed. Continue to hold pharmacologic DVT prophylaxis for now. Continue IV Protonix. (5) COPD (chronic obstructive pulmonary disease) Qualifiers: COPD type: unspecified COPD Qualified Code(s): J44.9 - Chronic obstructive pulmonary disease, unspecified Is this a current diagnosis for this admission?: Yes (6) End-stage renal disease on hemodialysis Is this a current diagnosis for this admission?: YesPlan: Continue hemodialysis per nephrology recommendation. (7) Pneumonia Qualifiers: Pneumonia type: due to unspecified organism Laterality: right Lung location: middle lobe of lung Qualified Code(s): J18.1 - Lobar pneumonia , unspecified organism Is this a current diagnosis for this admission?: YesPlan: Aspiration pneumonia with high probability of gram-negative organism. Continue IV Zosyn day #4. (8) Coronary artery disease Qualifiers: Coronary Disease-Associated Artery/Lesion type: [place] artery [place] vs. transplanted heart: [place] heart Associated angina: without angina Qualified Code(s): I25.10 - Atherosclerotic heart disease of [place] coronary artery without angina pectoris Is this a current diagnosis for this admission?: YesPlan: Continue Lipitor. Start low-dose aspirin 81 mg daily. (9) H/O endovascular stent graft for abdominal aortic aneurysm Is this a current diagnosis for this admission?: Yes (10) PVD (peripheral vascular disease) Is this a current diagnosis for this admission?: Yes (11) History of renal cell cancer Is this a current diagnosis for this admission?: Yes (12) Thrombocytopenia Is this a current diagnosis for this admission?: YesPlan: Resolved. - Time Time Spent with patient: 35 or more minutes Anticipated discharge: Acute Rehab Within: within 72 hours
[2016-09-05] MEDS: ATORVASTATIN CALCIUM 20 MG TABLET PO SCH (21:11)
[2016-09-06] MEDS: SUCRALFATE SUSP 1 GM/10 ML UDCUP PO SCH ×4 (00:06→17:20)
[2016-09-06] MEDS: IPRATROPIUM/ALBUTEROL 0.5-2.5 MG/3 ML AMPUL NEB SCH ×4 (02:22→20:20)
[2016-09-06 04:24] LABS: ABSOLUTE BASOPHILS # (AUTO) 0.1 10^3/uL (0.0-0.2); ABSOLUTE EOSINOPHILS # (AUTO) 0.4 10^3/uL (0.0-0.6); ABSOLUTE LYMPHOCYTES (AUTO) 1.4 10^3/uL (0.5-4.7); ABSOLUTE NEUT (AUTO) 8.9 10^3/uL (1.7-8.2); BASOPHILS % (AUTO) 0.6 % (0-2); EOSINOPHILS % (AUTO) 3.6 % (0-6); HEMATOCRIT 27.7 % (37.9-51.0); HEMOGLOBIN 9.1 g/dL (13.5-17.0); HGB HCT DIFFERENCE -0.4; LYMPHOCYTES % (AUTO) 12.1 % (13-45); MEAN CORPUSCULAR HEMOGLOBIN 29.8 pg (27.0-33.4); MEAN CORPUSCULAR VOLUME 90 fl (80-97); MONOCYTES % (AUTO) 8.1 % (3-13); RED BLOOD COUNT 3.06 10^6/uL (4.35-5.55); RED CELL DISTRIBUTION WIDTH 15.9 % (11.5-14.0); SEGMENTED NEUTROPHILS % (AUTO) 75.6 % (42-78); WHITE BLOOD COUNT 11.8 10^3/uL (4.0-10.5)
[2016-09-06 04:36] LABS: ANION GAP 12 (5-19); BLOOD UREA NITROGEN 74 mg/dL (7-20); CALCIUM 7.2 mg/dL (8.4-10.2); CARBON DIOXIDE 28 mmol/L (22-30); CHLORIDE 98 mmol/L (98-107); CREATININE RESULT 4.53 mg/dL (0.52-1.25); GLUCOSE 121 mg/dL (75-110); POTASSIUM 3.2 mmol/L (3.6-5.0); SODIUM 138.2 mmol/L (137-145)
[2016-09-06] MEDS ORDERED: EPOETIN ALFA INJ 20000 UNIT/1 ML VIAL (RENAL) IV PRN (05:00)
[2016-09-06] MEDS: PIPERACILLIN SODIUM/TAZOBACTAM 2.25 GM in NORMAL SALINE 50 ML IV SCH (05:51)
--- NOTE | 2016-09-06 08:28 | PDOC PROGRESS REPORT ---
Subjective Progress Note for:: 09/06/16 Subjective:: No issues reported overnight. Patient without pain or other complaints. Patient denies fever, chills, headache, new focal weakness, chest pain, shortness of breath, abdominal pain, nausea, vomiting, diarrhea, constipation. Physical Exam Vital Signs: Temp Pulse Resp BP Pulse Ox 98.2 F 84 18 109/62 74 L 09/06/16 04:00 09/06/16 02:22 09/06/16 06:01 09/06/16 06:00 09/06/16 05:59 Intake & Output 09/05/16 09/06/16 09/07/16 06:59 06:59 06:59 Intake Total 681 1019 Output Total 2360 650 Balance -1679 369 GENERAL: No acute distress HEENT: Conjunctiva clear, nonicteric, moist mucous membranes, no JVD, midline trachea RESPIRATORY: Clear to auscultation bilaterally, no wheezes, no rhonchi CARDIAC: Regular rate and rhythm, no murmurs/gallops/rubs ABDOMEN: Soft, nondistended, nontender, positive bowel sounds, no rebound, no guarding EXTREMETIES: No edema, cyanosis, clubbing NEUROLOGIC: Alert, oriented to person/place/time, CN's grossly intact, no focal deficits SKIN: No rash, wounds PSYCH: Normal mood, normal affect Results Laboratory Results: 09/06/16 03:37 09/06/16 03:37 09/06/16 09/06/16 03:37 03:37 WBC 11.8 H RBC 3.06 L Hgb 9.1 L Hct 27.7 L MCV 90 MCH 29.8 MCHC 33.0 RDW 15.9 H Plt Count 210 Seg Neutrophils % 75.6 Lymphocytes % 12.1 L Monocytes % 8.1 Eosinophils % 3.6 Basophils % 0.6 Absolute Neutrophils 8.9 H Absolute Lymphocytes 1.4 Absolute Monocytes 1.0 Absolute Eosinophils 0.4 Absolute Basophils 0.1 Sodium 138.2 Potassium 3.2 L Chloride 98 Carbon Dioxide 28 Anion Gap 12 BUN 74 H Creatinine 4.53 H Est GFR ( Amer) 15 L Est GFR (Non-Af Amer) 13 L Glucose 121 H Calcium 7.2 L Impressions: Hip/Pelvis X-Ray 08/29/16 17:28 IMPRESSION: SATISFACTORY POSTOPERATIVE RIGHT HIP. Chest X-Ray 09/01/16 00:00 IMPRESSION: NO ACUTE CARDIOPULMONARY PROCESS. NO SIGNIFICANT CHANGE PRIOR STUDY Assessment & Plan - Diagnosis (1) Fracture of femoral neck, right, closed Qualifiers: Encounter type: subsequent encounter Fracture healing: with routine healing Qualified Code(s): S72.001D - Fracture of unspecified part of neck of right femur, subsequent encounter for closed fracture with routine healing Is this a current diagnosis for this admission?: YesPlan: Status post right hip hemiarthroplasty on 08/29/[address] Quang Harrell. Continue physical therapy. Patient will need to go to rehabilitation. (2) Systemic inflammatory response syndrome (SIRS) Is this a current diagnosis for this admission?: Yes (3) Acute blood loss anemia Is this a current diagnosis for this admission?: YesPlan: Status post transfusion of total 5 units PRBC. Continure iron supplementation. Continue Procrit. (4) GI hemorrhage Qualifiers: GI bleed type/associated pathology: unspecified gastrointestinal hemorrhage type Qualified Code(s): K92.2 - Gastrointestinal hemorrhage, unspecified Is this a current diagnosis for this admission?: YesPlan: EGD with gastritis, no acute bleed. Patient may eventually need colonoscopy. Continue to hold pharmacologic DVT prophylaxis for now. Continue IV Protonix. (5) COPD (chronic obstructive pulmonary disease) Qualifiers: COPD type: unspecified COPD Qualified Code(s): J44.9 - Chronic obstructive pulmonary disease, unspecified Is this a current diagnosis for this admission?: Yes (6) End-stage renal disease on hemodialysis Is this a current diagnosis for this admission?: YesPlan: Continue hemodialysis per nephrology recommendation. (7) Pneumonia Qualifiers: Pneumonia type: due to unspecified organism Laterality: right Lung location: middle lobe of lung Qualified Code(s): J18.1 - Lobar pneumonia , unspecified organism Is this a current diagnosis for this admission?: YesPlan: Aspiration pneumonia with high probability of gram-negative organism. Cultures negative. Discontinue IV Zosyn. Start oral doxycycline. (8) Coronary artery disease Qualifiers: Coronary Disease-Associated Artery/Lesion type: [place] artery [place] vs. transplanted heart: [place] heart Associated angina: without angina Qualified Code(s): I25.10 - Atherosclerotic heart disease of [place] coronary artery without angina pectoris Is this a current diagnosis for this admission?: YesPlan: Continue Lipitor and aspirin 81 mg daily. (9) H/O endovascular stent graft for abdominal aortic aneurysm Is this a current diagnosis for this admission?: Yes (10) PVD (peripheral vascular disease) Is this a current diagnosis for this admission?: Yes (11) History of renal cell cancer Is this a current diagnosis for this admission?: Yes (12) Thrombocytopenia Is this a current diagnosis for this admission?: YesPlan: Resolved. (13) DVT prophylaxis Is this a current diagnosis for this admission?: YesPlan: Pharmacologic prophylaxis currently abandon secondary to GI bleed requiring transfusion of 5 units PRBC this admission. - Time Time Spent with patient: 35 or more minutes
[2016-09-06] MEDS ORDERED: DOXYCYCLINE HYCLATE 100 MG TABLET PO SCH (10:00)
--- NOTE | 2016-09-06 15:44 | PDOC PROGRESS REPORT ---
Subjective Progress Note for:: 09/06/16 Subjective:: I'm seeing the patient during dialysis. He is comfortable and sleeping to do dialysis treatment. His blood pressure is still lowish on the 100s to 100-110' s systolic blood pressure. For the last 24 hours his blood pressure ranges from 90-110/50's. Otherwise he doesn't complain of any pain nor chest pains nor shortness of breath nor any other complaints. He eats 50-75% of what is on his tray. Physical Exam Vital Signs: Temp Pulse Resp BP Pulse Ox 98.5 F 74 16 90/43 L 98 09/06/16 12:00 09/06/16 14:00 09/06/16 14:00 09/06/16 13:49 09/06/16 12:02 Intake & Output 09/05/16 09/06/16 09/07/16 06:59 06:59 06:59 Intake Total 681 1019 300 Output Total 2360 650 Balance -1679 369 300 Vitals currently on dialysis: Blood pressure 111/49, heart rate 81, respiratory rate 17, blood flow rate of 400 mL per minute, dialysate flow rate of 600 mL per minute. Exam: General appearance: PRESENT: no acute distress, cooperative, well-developed, well-nourished Head exam: PRESENT: atraumatic, normocephalic Eye exam: PRESENT: conjunctiva pale, PERRLA. ABSENT: scleral icterus Neck exam: ABSENT: JVD Respiratory exam: PRESENT: Diminished breath sounds. ABSENT: crackles, rales, rhonchi, unlabored, wheezes Cardiovascular exam: PRESENT: Regular rate rhythm -+S1, +S2. ABSENT: diastolic murmur, systolic murmur GI/Abdominal exam: PRESENT: normal bowel sounds, soft. ABSENT: guarding, mass, tenderness Extremities exam: ABSENT: No edema Neurological exam: PRESENT: alert, awake, oriented to person, and place. Skin exam: PRESENT: dry, warm, Results Laboratory Results: 09/06/16 03:37 09/06/16 03:37 09/06/16 09/06/16 03:37 03:37 WBC 11.8 H RBC 3.06 L Hgb 9.1 L Hct 27.7 L MCV 90 MCH 29.8 MCHC 33.0 RDW 15.9 H Plt Count 210 Seg Neutrophils % 75.6 Lymphocytes % 12.1 L Monocytes % 8.1 Eosinophils % 3.6 Basophils % 0.6 Absolute Neutrophils 8.9 H Absolute Lymphocytes 1.4 Absolute Monocytes 1.0 Absolute Eosinophils 0.4 Absolute Basophils 0.1 Sodium 138.2 Potassium 3.2 L Chloride 98 Carbon Dioxide 28 Anion Gap 12 BUN 74 H Creatinine 4.53 H Est GFR ( Amer) 15 L Est GFR (Non-Af Amer) 13 L Glucose 121 H Calcium 7.2 L Impressions: Hip/Pelvis X-Ray 08/29/16 17:28 IMPRESSION: SATISFACTORY POSTOPERATIVE RIGHT HIP. Chest X-Ray 09/01/16 00:00 IMPRESSION: NO ACUTE CARDIOPULMONARY PROCESS. NO SIGNIFICANT CHANGE PRIOR STUDY Assessment & Plan - Diagnosis (1) End-stage renal disease on hemodialysis Is this a current diagnosis for this admission?: YesPlan: We will do dialysis today for 3 hours, using the patient's AV fistula, with 3 potassium/3 calcium bath, blood flow rate of 450 mL per minute, dialysate flow rate of 600 mL per minute, ultrafiltration 500 mL, no heparin and Procrit with 20,000 units during dialysis intravenously. Continue to monitor throughout dialysis our dialysis nurse. (2) Fracture of femoral neck, right, closed Qualifiers: Encounter type: subsequent encounter Fracture healing: with routine healing Qualified Code(s): S72.001D - Fracture of unspecified part of neck of right femur, subsequent encounter for closed fracture with routine healing Is this a current diagnosis for this admission?: YesPlan: Status post right hemiarthroplasty on August 29. Patient is awaiting rehabilitation placement. (3) Anemia, chronic disease Is this a current diagnosis for this admission?: YesPlan: Patient has gastritis via EGD. Procrit will be given today during dialysis treatment at 20,000 units. (4) Hypertension Qualifiers: Hypertension type: essential hypertension Qualified Code(s): I10 - Essential (primary) hypertension Is this a current diagnosis for this admission?: YesPlan: Blood pressure has been stable although on the low side but acceptable. (5) Pneumonia Qualifiers: Pneumonia type: due to unspecified organism Laterality: right Lung location: middle lobe of lung Qualified Code(s): J18.1 - Lobar pneumonia , unspecified organism Is this a current diagnosis for this admission?: YesPlan: On antibiotics per primary service. (6) Thrombocytopenia Is this a current diagnosis for this admission?: YesPlan: Improving. (7) Hypocalcemia Is this a current diagnosis for this admission?: YesPlan: We will use 3 calcium bath during dialysis today. Will check phosphorus level. - Notes Notes: From nephrology standpoint patient can be transferred to rehabilitation whenever deemed appropriate by the primary service. - Time Time with patient: 15-25 minutes
[2016-09-06] MEDS: DOCUSATE SODIUM 100 MG CAPSULE PO SCH ×2 (16:08→17:23)
[2016-09-06] MEDS: ISOSORBIDE DINITRATE 20 MG TABLET PO SCH ×2 (16:08→21:02)
[2016-09-06] MEDS: GUAIFENESIN 600 MG TABLET.SA PO SCH ×2 (16:45→21:02)
[2016-09-06] MEDS: LACTOBACILLUS ACIDOPHILUS 250 MG TAB PO SCH ×2 (16:45→17:21)
[2016-09-06] MEDS ORDERED: DOXYCYCLINE HYCLATE 100 MG TABLET PO ONE (17:15)
[2016-09-06] MEDS: FERROUS SULFATE 325 MG TABLET PO SCH (17:21)
[2016-09-06] MEDS: ASPIRIN 81 MG TABLET, ENT COATED PO SCH (17:21)
[2016-09-06] MEDS: ATORVASTATIN CALCIUM 20 MG TABLET PO SCH (21:02)
[2016-09-06] MEDS: HALOPERIDOL LACTATE INJ 5 MG/1 ML VIAL IV PRN (21:02)
[2016-09-07] MEDS: SUCRALFATE SUSP 1 GM/10 ML UDCUP PO SCH ×4 (00:01→17:02)
[2016-09-07] MEDS: IPRATROPIUM/ALBUTEROL 0.5-2.5 MG/3 ML AMPUL NEB SCH ×4 (01:53→19:56)
[2016-09-07] MEDS: HALOPERIDOL LACTATE INJ 5 MG/1 ML VIAL IV PRN ×3 (02:21→13:48)
[2016-09-07 04:49] LABS: ABSOLUTE BASOPHILS # (AUTO) 0.1 10^3/uL (0.0-0.2); ABSOLUTE EOSINOPHILS # (AUTO) 0.2 10^3/uL (0.0-0.6); ABSOLUTE LYMPHOCYTES (AUTO) 1.4 10^3/uL (0.5-4.7); ABSOLUTE MONOCYTES (AUTO) 0.8 10^3/uL (0.1-1.4); ABSOLUTE NEUT (AUTO) 7.6 10^3/uL (1.7-8.2); BASOPHILS % (AUTO) 0.6 % (0-2); EOSINOPHILS % (AUTO) 1.9 % (0-6); HEMATOCRIT 26.4 % (37.9-51.0); HGB HCT DIFFERENCE 0.6; LYMPHOCYTES % (AUTO) 14.1 % (13-45); MEAN CORPUSCULAR HEMOGLOBIN 30.9 pg (27.0-33.4); MEAN CORPUSCULAR HGB CONC 34.2 g/dL (32.0-36.0); MEAN CORPUSCULAR VOLUME 90 fl (80-97); MONOCYTES % (AUTO) 8.3 % (3-13); RED BLOOD COUNT 2.92 10^6/uL (4.35-5.55); RED CELL DISTRIBUTION WIDTH 16.1 % (11.5-14.0); SEGMENTED NEUTROPHILS % (AUTO) 75.1 % (42-78); WHITE BLOOD COUNT 10.2 10^3/uL (4.0-10.5)
[2016-09-07 05:00] LABS: ALANINE AMINOTRANSFERASE 180 U/L (21-72); ALBUMIN 2.6 g/dL (3.5-5.0); ALKALINE PHOSPHATASE 73 U/L (38-126); ANION GAP 9 (5-19); ASPARTATE AMINO TRANSFERASE 140 U/L (17-59); BILIRUBIN,TOTAL 0.8 mg/dL (0.2-1.3); BLOOD UREA NITROGEN 38 mg/dL (7-20); CALCIUM 7.9 mg/dL (8.4-10.2); CARBON DIOXIDE 31 mmol/L (22-30); CHLORIDE 101 mmol/L (98-107); CREATININE RESULT 2.95 mg/dL (0.52-1.25); GLUCOSE 119 mg/dL (75-110); MAGNESIUM 1.8 mg/dL (1.6-2.3); PHOSPHORUS 3.6 mg/dL (2.5-4.5); POTASSIUM 3.2 mmol/L (3.6-5.0); SODIUM 140.9 mmol/L (137-145); TOTAL PROTEIN 5.2 g/dL (6.3-8.2)
[2016-09-07] MEDS: DOXYCYCLINE HYCLATE 100 MG TABLET PO SCH ×2 (06:25→17:01)
[2016-09-07] MEDS ORDERED: POTASSIUM CHLORIDE 10 MEQ TABLET.SA PO ONE (07:51)
[2016-09-07] MEDS: ISOSORBIDE DINITRATE 20 MG TABLET PO SCH ×2 (09:29→21:46)
[2016-09-07] MEDS: LACTOBACILLUS ACIDOPHILUS 250 MG TAB PO SCH ×2 (09:29→17:01)
[2016-09-07] MEDS: GUAIFENESIN 600 MG TABLET.SA PO SCH ×2 (09:29→21:46)
[2016-09-07] MEDS: LANSOPRAZOLE 30 MG TAB.RAP.DR PO SCH (09:29)
[2016-09-07] MEDS: ASPIRIN 81 MG TABLET, ENT COATED PO SCH (09:29)
[2016-09-07] MEDS: FERROUS SULFATE 325 MG TABLET PO SCH (09:30)
[2016-09-07] MEDS: DOCUSATE SODIUM 100 MG CAPSULE PO SCH ×2 (09:51→17:06)
[2016-09-07] MEDS: OXYCODONE HCL IR 5 MG TABLET PO PRN (17:02)
--- NOTE | 2016-09-07 18:47 | PDOC PROGRESS REPORT ---
Subjective Progress Note for:: 09/07/16 Subjective:: No issues reported overnight. Patient without pain or other complaints. Patient denies fever, chills, headache, new focal weakness, chest pain, shortness of breath, abdominal pain, nausea, vomiting, diarrhea, constipation. Physical Exam Vital Signs: Temp Pulse Resp BP Pulse Ox 98.6 F 87 19 96/43 L 90 L 09/07/16 16:00 09/07/16 16:00 09/07/16 16:00 09/07/16 16:00 09/07/16 16:00 Intake & Output 09/06/16 09/07/16 09/08/16 06:59 06:59 06:59 Intake Total 1019 320 Output Total 650 900 200 Balance 369 -580 -200 Weight 86.7 kg GENERAL: No acute distress HEENT: Conjunctiva clear, nonicteric, moist mucous membranes, no JVD, midline trachea RESPIRATORY: Clear to auscultation bilaterally, no wheezes, no rhonchi CARDIAC: Regular rate and rhythm, no murmurs/gallops/rubs ABDOMEN: Soft, nondistended, nontender, positive bowel sounds, no rebound, no guarding EXTREMETIES: No edema, cyanosis, clubbing NEUROLOGIC: Alert, oriented to person/place/time, CN's grossly intact, no focal deficits SKIN: No rash, wounds PSYCH: Normal mood, normal affect Results Laboratory Results: 09/07/16 03:48 09/07/16 03:48 09/07/16 09/07/16 03:48 03:48 WBC 10.2 RBC 2.92 L Hgb 9.0 L Hct 26.4 L MCV 90 MCH 30.9 MCHC 34.2 RDW 16.1 H Plt Count 219 Seg Neutrophils % 75.1 Lymphocytes % 14.1 Monocytes % 8.3 Eosinophils % 1.9 Basophils % 0.6 Absolute Neutrophils 7.6 Absolute Lymphocytes 1.4 Absolute Monocytes 0.8 Absolute Eosinophils 0.2 Absolute Basophils 0.1 Sodium 140.9 Potassium 3.2 L Chloride 101 Carbon Dioxide 31 H Anion Gap 9 BUN 38 H Creatinine 2.95 H Est GFR ( Amer) 25 L Est GFR (Non-Af Amer) 21 L Glucose 119 H Calcium 7.9 L Phosphorus 3.6 Magnesium 1.8 Total Bilirubin 0.8 AST 140 H ALT 180 H Alkaline Phosphatase 73 Total Protein 5.2 L Albumin 2.6 L 09/02/16 16:00 Blood Blood Culture - Final NO GROWTH IN 5 DAYS 09/02/16 16:15 Blood Blood Culture - Final NO GROWTH IN 5 DAYS Impressions: Hip/Pelvis X-Ray 08/29/16 17:28 IMPRESSION: SATISFACTORY POSTOPERATIVE RIGHT HIP. Chest X-Ray 09/01/16 00:00 IMPRESSION: NO ACUTE CARDIOPULMONARY PROCESS. NO SIGNIFICANT CHANGE PRIOR STUDY Assessment & Plan - Diagnosis (1) Fracture of femoral neck, right, closed Qualifiers: Encounter type: subsequent encounter Fracture healing: with routine healing Qualified Code(s): S72.001D - Fracture of unspecified part of neck of right femur, subsequent encounter for closed fracture with routine healing Is this a current diagnosis for this admission?: YesPlan: Status post right hip hemiarthroplasty on 08/29/[address] Quang Harrell. Continue physical therapy. Patient will need to go to rehabilitation. (2) Systemic inflammatory response syndrome (SIRS) Is this a current diagnosis for this admission?: Yes (3) Acute blood loss anemia Is this a current diagnosis for this admission?: YesPlan: Status post transfusion of total 5 units PRBC. Continure iron supplementation. Continue Procrit. (4) GI hemorrhage Qualifiers: GI bleed type/associated pathology: unspecified gastrointestinal hemorrhage type Qualified Code(s): K92.2 - Gastrointestinal hemorrhage, unspecified Is this a current diagnosis for this admission?: YesPlan: EGD with gastritis, no acute bleed. Patient may eventually need colonoscopy. Continue to hold pharmacologic DVT prophylaxis for now. Continue Prevacid. (5) COPD (chronic obstructive pulmonary disease) Qualifiers: COPD type: unspecified COPD Qualified Code(s): J44.9 - Chronic obstructive pulmonary disease, unspecified Is this a current diagnosis for this admission?: Yes (6) End-stage renal disease on hemodialysis Is this a current diagnosis for this admission?: YesPlan: Continue hemodialysis per nephrology recommendation. Patient normally goes to [facility]. (7) Pneumonia Qualifiers: Pneumonia type: due to unspecified organism Laterality: right Lung location: middle lobe of lung Qualified Code(s): J18.1 - Lobar pneumonia , unspecified organism Is this a current diagnosis for this admission?: YesPlan: Aspiration pneumonia with high probability of gram-negative organism. Cultures negative. Continue oral doxycycline until 09/14/2016. (8) Coronary artery disease Qualifiers: Coronary Disease-Associated Artery/Lesion type: [place] artery [place] vs. transplanted heart: [place] heart Associated angina: without angina Qualified Code(s): I25.10 - Atherosclerotic heart disease of [place] coronary artery without angina pectoris Is this a current diagnosis for this admission?: YesPlan: Continue Lipitor and aspirin 81 mg daily. (9) H/O endovascular stent graft for abdominal aortic aneurysm Is this a current diagnosis for this admission?: Yes (10) PVD (peripheral vascular disease) Is this a current diagnosis for this admission?: Yes (11) History of renal cell cancer Is this a current diagnosis for this admission?: Yes (12) Thrombocytopenia Is this a current diagnosis for this admission?: YesPlan: Resolved. (13) DVT prophylaxis Is this a current diagnosis for this admission?: YesPlan: Pharmacologic prophylaxis currently abandon secondary to GI bleed requiring transfusion of 5 units PRBC this admission. - Time Time Spent with patient: 35 or more minutes Anticipated discharge: Acute Rehab
[2016-09-07] MEDS: ATORVASTATIN CALCIUM 20 MG TABLET PO SCH (21:46)
[2016-09-08] MEDS: SUCRALFATE SUSP 1 GM/10 ML UDCUP PO SCH ×4 (00:55→18:52)
[2016-09-08] MEDS: IPRATROPIUM/ALBUTEROL 0.5-2.5 MG/3 ML AMPUL NEB SCH ×4 (02:14→21:10)
[2016-09-08 04:21] LABS: ABSOLUTE BASOPHILS # (AUTO) 0.1 10^3/uL (0.0-0.2); ABSOLUTE EOSINOPHILS # (AUTO) 0.3 10^3/uL (0.0-0.6); ABSOLUTE LYMPHOCYTES (AUTO) 1.5 10^3/uL (0.5-4.7); ABSOLUTE MONOCYTES (AUTO) 0.8 10^3/uL (0.1-1.4); ABSOLUTE NEUT (AUTO) 8.7 10^3/uL (1.7-8.2); EOSINOPHILS % (AUTO) 2.8 % (0-6); HEMOGLOBIN 8.9 g/dL (13.5-17.0); HGB HCT DIFFERENCE -0.3; LYMPHOCYTES % (AUTO) 13.3 % (13-45); MEAN CORPUSCULAR HEMOGLOBIN 30.2 pg (27.0-33.4); MEAN CORPUSCULAR VOLUME 92 fl (80-97); RED BLOOD COUNT 2.95 10^6/uL (4.35-5.55); RED CELL DISTRIBUTION WIDTH 16.4 % (11.5-14.0); SEGMENTED NEUTROPHILS % (AUTO) 75.9 % (42-78); WHITE BLOOD COUNT 11.5 10^3/uL (4.0-10.5)
[2016-09-08 04:32] LABS: ANION GAP 12 (5-19); BLOOD UREA NITROGEN 53 mg/dL (7-20); CALCIUM 7.6 mg/dL (8.4-10.2); CARBON DIOXIDE 27 mmol/L (22-30); CHLORIDE 101 mmol/L (98-107); CREATININE RESULT 3.85 mg/dL (0.52-1.25); GLUCOSE 121 mg/dL (75-110); POTASSIUM 3.5 mmol/L (3.6-5.0); SODIUM 139.8 mmol/L (137-145)
[2016-09-08] MEDS: DOXYCYCLINE HYCLATE 100 MG TABLET PO SCH ×2 (06:34→18:51)
[2016-09-08] MEDS: OXYCODONE HCL IR 5 MG TABLET PO PRN ×2 (06:39→13:05)
[2016-09-08] MEDS: LANSOPRAZOLE 30 MG TAB.RAP.DR PO SCH (07:51)
[2016-09-08] MEDS: ASPIRIN 81 MG TABLET, ENT COATED PO SCH (10:01)
[2016-09-08] MEDS: FERROUS SULFATE 325 MG TABLET PO SCH (10:01)
[2016-09-08] MEDS: LACTOBACILLUS ACIDOPHILUS 250 MG TAB PO SCH ×2 (10:01→18:51)
[2016-09-08] MEDS: GUAIFENESIN 600 MG TABLET.SA PO SCH ×2 (10:01→21:04)
[2016-09-08] MEDS: ISOSORBIDE DINITRATE 20 MG TABLET PO SCH ×2 (10:01→21:04)
[2016-09-08] MEDS: DOCUSATE SODIUM 100 MG CAPSULE PO SCH ×2 (10:01→18:52)
[2016-09-08 12:17] VITALS: BP 117/58
--- NOTE | 2016-09-08 13:52 | PDOC TRANSFER SUMMARY ---
General - Admit/Disc Date/PCP Admission Date/Primary Care Provider: 08/28/16 10:13 BRIAN RODRIGUEZ MD Discharge Date: 09/08/16 - Discharge Diagnosis (1) Fracture of femoral neck, right, closed Is this a current diagnosis for this admission?: YesSummary: This 76-year-old man fell out of bed and suffered a right hip fracture. He was admitted on 08/28/2016. On 08/29/2016 he underwent a right hip hemiarthroplasty by Dr. Harrell. It was uncomplicated. (2) COPD (chronic obstructive pulmonary disease) Is this a current diagnosis for this admission?: Yes (3) Pneumonia Is this a current diagnosis for this admission?: YesSummary: The patient had an abnormal chest x-ray on admission. He was felt to have aspiration pneumonia of the right middle lobe. This was associated with sepsis. He was treated with the antibiotics. (4) Systemic inflammatory response syndrome (SIRS) Is this a current diagnosis for this admission?: Yes (5) GI hemorrhage Is this a current diagnosis for this admission?: YesSummary: The patient developed a significant upper GI hemorrhage, eventually requiring 5 units of packed red blood cell transfusion. He underwent esophagogastroduodenoscopy on 09/04/[address] Huggins with finding of gastritis. The hemoglobin stabilized. (6) Acute blood loss anemia Is this a current diagnosis for this admission?: Yes (7) End-stage renal disease on hemodialysis Is this a current diagnosis for this admission?: YesSummary: The patient has known end-stage renal disease on hemodialysis. (8) Obesity (BMI 30.0-34.9) Is this a current diagnosis for this admission?: Yes (9) Coronary artery disease Is this a current diagnosis for this admission?: YesSummary: The patient had no signs or symptoms of his coronary artery disease during this hospitalization. (10) Hyperlipidemia Is this a current diagnosis for this admission?: Yes (11) Hypertension Is this a current diagnosis for this admission?: Yes (12) Hypomagnesemia Is this a current diagnosis for this admission?: Yes (13) Arm bruise Is this a current diagnosis for this admission?: Yes - Additional Information Resuscitation Status: Full Code Discharge Diet: As Tolerated Discharge Activity: Activity As Tolerated, Supervised Activity, Walk Frequently Home Medications: Albuterol Sulfate [Proair HFA] 2 puff IH Q6HP PRN 08/28/16 Atorvastatin Calcium [Lipitor 20 mg Tablet] 20 mg PO QHS 08/28/16 B Complex & C No.20/Folic Acid [Nephrocaps Softgel] 1 mg PO QHS 08/28/16 Isosorbide Dinitrate [Isordil Titradose 20 mg Tablet] 20 mg PO Q12 08/28/16 L. Rhamnosus GG/Inulin [Culturelle Capsule] 1 each PO DAILY 08/28/16 Magnesium Oxide [Mag-Ox 400 mg Tablet] 400 mg PO DAILY 08/28/16 Omeprazole 20 mg PO DAILY 08/28/16 Sodium Bicarbonate [Sodium Bicarbonate 650 mg Tablet] 650 mg PO Q12 08/28/16 Aspirin [Ecotrin 81 mg EC Tablet] 81 mg PO DAILY #0 tabec 09/08/16 Doxycycline Hyclate [Vibramycin 100 mg Tablet] 100 mg PO Q12A #14 tablet Ferrous Sulfate [Feosol 325 mg Tablet] 325 mg PO DAILY #0 tablet 09/08/16 Guaifenesin [Mucinex Sr 600 mg Tablet.sa] 600 mg PO Q12 #0 tablet.sa 09/08/16 Ipratropium/Albuterol Sulfate [Duoneb 3 ml Ampul] 3 ml NEB RTQ6HP PRN #0 vial.neb 09/08/16 Sucralfate [Carafate Susp 1 gm/10 ml Udcup] 1 gm PO Q6 #0 udc 09/08/16 History of Present Illness Admission Date/PCP: 08/28/16 10:13 BRIAN RODRIGUEZ MD History of Present Illness: TYLOR JIMENEZ is a 76 year old male with history of end-stage renal disease on dialysis, coronary artery disease, hypertension, hyperlipidemia presents to the hospital because of pain in the right hip. Patient was sleeping when he fell out of bed. He woke up with hip pain under right and therefore the patient called his family really was brought to the emergency room and noted fracture on the right hip. The patient's dialysis is every Sunday and Sunday. He denies shortness of breath or chest pain at all. Likewise no chills or fever. He has chronic cough on and off. He takes inhalers at home but was never told he has COPD. Surgeons addendum: Patient has had coffee-ground emesis, and heme positive stool. No hematochezia and no pablo hematemesis. He has received a blood transfusion. Patient is somewhat disoriented, on dialysis currently. He nods when asked questions. Physical Exam Vital Signs: Temp Pulse Resp BP Pulse Ox 98.7 F 73 15 117/58 L 97 09/08/16 12:47 09/08/16 12:47 09/08/16 12:47 09/08/16 12:47 09/08/16 12:47 Intake & Output 09/07/16 09/08/16 09/09/16 06:59 06:59 06:59 Intake Total 320 437 200 Output Total 900 400 400 Balance -580 37 -200 Weight 86.7 kg General appearance: PRESENT: no acute distress, hard of hearing Head exam: PRESENT: atraumatic, normocephalic Eye exam: PRESENT: EOMI, PERRLA. ABSENT: conjunctival injection, conjunctiva pink, conjunctiva pale, nystagmus, periorbital swelling, scleral icterus Ear exam: PRESENT: normal external ear exam Mouth exam: PRESENT: moist Neck exam: ABSENT: carotid bruit, tracheal deviation Respiratory exam: PRESENT: clear to auscultation jenni, unlabored. ABSENT: rhonchi, wheezes Cardiovascular exam: PRESENT: RRR. ABSENT: diastolic murmur, systolic murmur GI/Abdominal exam: PRESENT: normal bowel sounds, soft. ABSENT: distended, tenderness Extremities exam: ABSENT: calf tenderness, clubbing, pedal edema Neurological exam: PRESENT: alert, awake Psychiatric exam: PRESENT: flat affect Results Laboratory Results: 09/08/16 04:07 09/08/16 04:07 09/08/16 09/08/16 04:07 04:07 WBC 11.5 H RBC 2.95 L Hgb 8.9 L Hct 27.0 L MCV 92 MCH 30.2 MCHC 33.0 RDW 16.4 H Plt Count 253 Seg Neutrophils % 75.9 Lymphocytes % 13.3 Monocytes % 7.0 Eosinophils % 2.8 Basophils % 1.0 Absolute Neutrophils 8.7 H Absolute Lymphocytes 1.5 Absolute Monocytes 0.8 Absolute Eosinophils 0.3 Absolute Basophils 0.1 Sodium 139.8 Potassium 3.5 L Chloride 101 Carbon Dioxide 27 Anion Gap 12 BUN 53 H Creatinine 3.85 H Est GFR ( Amer) 19 L Est GFR (Non-Af Amer) 15 L Glucose 121 H Calcium 7.6 L 09/02/16 16:00 Blood Blood Culture - Final NO GROWTH IN 5 DAYS 09/02/16 16:15 Blood Blood Culture - Final NO GROWTH IN 5 DAYS Impressions: Hip/Pelvis X-Ray 08/29/16 17:28 IMPRESSION: SATISFACTORY POSTOPERATIVE RIGHT HIP. Chest X-Ray 09/08/16 00:00 IMPRESSION: No acute infiltrates Transfer Plan - Disposition Transfer Plan: The patient will be transferred to the [facility] for rehabilitation after a prolonged and difficult hospitalization. - Time Spent with Patient Time spent with patient: Greater than 30 Minutes Qualifiers PATEINT BEING DISCHARGED WITH ANY OF THE FOLLOWING DIAGNOSIS?: No
--- NOTE | 2016-09-08 15:09 | PDOC PROGRESS REPORT ---
Subjective Progress Note for:: 09/08/16 Subjective:: I'm seeing the patient during hemodialysis this afternoon. Patient has been stable and tolerating dialysis without any problems or complications. Patient is comfortable. He will be sent to the [facility] today after hemodialysis. Physical Exam Vital Signs: Temp Pulse Resp BP Pulse Ox 98.7 F 73 15 117/58 L 97 09/08/16 12:47 09/08/16 12:47 09/08/16 12:47 09/08/16 12:47 09/08/16 12:47 Intake & Output 09/07/16 09/08/16 09/09/16 06:59 06:59 06:59 Intake Total 320 437 200 Output Total 900 400 400 Balance -580 37 -200 Weight 86.7 kg Vital signs during dialysis currently: Blood pressure 116/56, heart rate 77, blood flow rate of 450 mL per minute, dialysate flow rate of 600 mL per minute. Exam: General appearance: PRESENT: no acute distress, cooperative, well-developed, well-nourished Head exam: PRESENT: atraumatic, normocephalic Eye exam: PRESENT: conjunctiva pale, PERRLA. ABSENT: scleral icterus Neck exam: ABSENT: JVD Respiratory exam: PRESENT: Diminished breath sounds. ABSENT: crackles, rales, rhonchi, unlabored, wheezes Cardiovascular exam: PRESENT: Regular rate rhythm -+S1, +S2. ABSENT: diastolic murmur, systolic murmur GI/Abdominal exam: PRESENT: normal bowel sounds, soft. ABSENT: guarding, mass, tenderness Extremities exam: ABSENT: No edema Neurological exam: PRESENT: Asleep but arousable. Skin exam: PRESENT: dry, warm, Results Laboratory Results: 09/08/16 04:07 09/08/16 04:07 09/08/16 09/08/16 04:07 04:07 WBC 11.5 H RBC 2.95 L Hgb 8.9 L Hct 27.0 L MCV 92 MCH 30.2 MCHC 33.0 RDW 16.4 H Plt Count 253 Seg Neutrophils % 75.9 Lymphocytes % 13.3 Monocytes % 7.0 Eosinophils % 2.8 Basophils % 1.0 Absolute Neutrophils 8.7 H Absolute Lymphocytes 1.5 Absolute Monocytes 0.8 Absolute Eosinophils 0.3 Absolute Basophils 0.1 Sodium 139.8 Potassium 3.5 L Chloride 101 Carbon Dioxide 27 Anion Gap 12 BUN 53 H Creatinine 3.85 H Est GFR ( Amer) 19 L Est GFR (Non-Af Amer) 15 L Glucose 121 H Calcium 7.6 L 09/02/16 16:00 Blood Blood Culture - Final NO GROWTH IN 5 DAYS 09/02/16 16:15 Blood Blood Culture - Final NO GROWTH IN 5 DAYS Impressions: Hip/Pelvis X-Ray 08/29/16 17:28 IMPRESSION: SATISFACTORY POSTOPERATIVE RIGHT HIP. Chest X-Ray 09/08/16 00:00 IMPRESSION: No acute infiltrates Assessment & Plan - Diagnosis (1) End-stage renal disease on hemodialysis Is this a current diagnosis for this admission?: YesPlan: We will do dialysis today for [3] hours, using the patient's AV fistula, with 3 potassium bath, blood flow rate of 450 mL per minute, dialysate flow rate of [ 600] mL per minute, ultrafiltration 500 mL, [no heparin] and Procrit with 20, 000 units during dialysis intravenously. Patient will be monitored for during dialysis nurse throughout the treatment. (2) Fracture of femoral neck, right, closed Qualifiers: Encounter type: subsequent encounter Fracture healing: with routine healing Qualified Code(s): S72.001D - Fracture of unspecified part of neck of right femur, subsequent encounter for closed fracture with routine healing Is this a current diagnosis for this admission?: YesPlan: Status post right hemiarthroplasty on August 29. Patient will be transferred to [facility] rehabilitation today. (3) Anemia, chronic disease Is this a current diagnosis for this admission?: YesPlan: Procrit will be given today. (4) Hypertension Qualifiers: Hypertension type: essential hypertension Qualified Code(s): I10 - Essential (primary) hypertension Is this a current diagnosis for this admission?: YesPlan: Blood pressure has been stable although on the low side but acceptable. (5) Pneumonia Qualifiers: Pneumonia type: due to unspecified organism Laterality: right Lung location: middle lobe of lung Qualified Code(s): J18.1 - Lobar pneumonia , unspecified organism Is this a current diagnosis for this admission?: YesPlan: On antibiotics per primary service. (6) Thrombocytopenia Is this a current diagnosis for this admission?: YesPlan: Resolved (7) Hypocalcemia Is this a current diagnosis for this admission?: YesPlan: Improved - Notes Notes: From nephrology standpoint patient can be transferred to [facility] today after dialysis. Patient will continue outpatient dialysis at the [facility] dialysis unit. - Time Time with patient: 15-25 minutes
[2016-09-08] MEDS ORDERED: EPOETIN ALFA INJ 20000 UNIT/1 ML VIAL (RENAL) IV PRN (15:52)
--- NOTE | 2016-09-08 19:50 | PDOC PROGRESS REPORT ---
Subjective Progress Note for:: 09/08/16 Subjective:: Patient seen and evaluated this evening. Lying in bed comfortably. Denies any hip discomfort. Physical Exam Vital Signs: Temp Pulse Resp BP Pulse Ox 98.7 F 73 15 117/58 L 97 09/08/16 15:46 09/08/16 15:46 09/08/16 15:46 09/08/16 15:46 09/08/16 15:46 Intake & Output 09/07/16 09/08/16 09/09/16 06:59 06:59 06:59 Intake Total 320 437 250 Output Total 900 400 500 Balance -580 37 -250 Weight 86.7 kg Musculoskeletal exam: PRESENT: other - Right hip: Dressing clean/dry/intact, unchanged ecchymosis. Intact plantar flexion/dorsiflexion. No calf tenderness. Results Laboratory Results: 09/08/16 04:07 09/08/16 04:07 09/08/16 09/08/16 04:07 04:07 WBC 11.5 H RBC 2.95 L Hgb 8.9 L Hct 27.0 L MCV 92 MCH 30.2 MCHC 33.0 RDW 16.4 H Plt Count 253 Seg Neutrophils % 75.9 Lymphocytes % 13.3 Monocytes % 7.0 Eosinophils % 2.8 Basophils % 1.0 Absolute Neutrophils 8.7 H Absolute Lymphocytes 1.5 Absolute Monocytes 0.8 Absolute Eosinophils 0.3 Absolute Basophils 0.1 Sodium 139.8 Potassium 3.5 L Chloride 101 Carbon Dioxide 27 Anion Gap 12 BUN 53 H Creatinine 3.85 H Est GFR ( Amer) 19 L Est GFR (Non-Af Amer) 15 L Glucose 121 H Calcium 7.6 L 09/02/16 16:00 Blood Blood Culture - Final NO GROWTH IN 5 DAYS 09/02/16 16:15 Blood Blood Culture - Final NO GROWTH IN 5 DAYS Impressions: Hip/Pelvis X-Ray 08/29/16 17:28 IMPRESSION: SATISFACTORY POSTOPERATIVE RIGHT HIP. Chest X-Ray 09/08/16 00:00 IMPRESSION: No acute infiltrates Assessment & Plan - Diagnosis (1) Fracture of femoral neck, right, closed Qualifiers: Encounter type: subsequent encounter Fracture healing: with routine healing Qualified Code(s): S72.001D - Fracture of unspecified part of neck of right femur, subsequent encounter for closed fracture with routine healing Is this a current diagnosis for this admission?: YesPlan: Status post right hip hemiarthroplasty. #1 continue physical therapy with hip precautions #2 acute on chronic anemia #3 mechanical prophylaxis DVT prophylaxis held due to patient's anemia #4 [facility] facility [facility] bed available
[2016-09-08] MEDS: ATORVASTATIN CALCIUM 20 MG TABLET PO SCH (21:05)
== END 2016-09-08 21:10 | DRG 469 ==
LOC: ER 05:46 → UNDOADMIN 09:26 → EH 09:26 → 4W 12:20 → 4N 08-29 04:26 → 3N 09-02 19:19 → ICU 09-03 17:10
PROC: 0SRR01A Replacement of Right Hip Joint, Femoral Surface with Metal Synthetic Substitute, Uncemented, Open Approach (ICD-10-PCS; 2016-08-29)
PROC: 30233N1 Transfusion of Nonautologous Red Blood Cells into Peripheral Vein, Percutaneous Approach (ICD-10-PCS; 2016-08-31)
PROC: 0DB68ZX Excision of Stomach, Via Natural or Artificial Opening Endoscopic, Diagnostic (ICD-10-PCS; 2016-09-04)
PROC: 5A1D60Z (ICD-10-PCS; principal; 2016-09-04 16:45)
DX: S72.001A Fracture of unspecified part of neck of right femur, initial encounter for closed fracture (principal); N18.6 End stage renal disease; J18.1 Lobar pneumonia, unspecified organism; I13.2 Hypertensive heart and chronic kidney disease with heart failure and with stage 5 chronic kidney disease, or end stage renal disease; K92.2 Gastrointestinal hemorrhage, unspecified; D62 Acute posthemorrhagic anemia; R50.82 Postprocedural fever; E83.51 Hypocalcemia; E83.42 Hypomagnesemia; S40.021A Contusion of right upper arm, initial encounter; I50.9 Heart failure, unspecified; E78.5 Hyperlipidemia, unspecified; K29.70 Gastritis, unspecified, without bleeding; K44.9 Diaphragmatic hernia without obstruction or gangrene; D69.6 Thrombocytopenia, unspecified; R09.02 Hypoxemia; I25.10 Atherosclerotic heart disease of native coronary artery without angina pectoris; I73.9 Peripheral vascular disease, unspecified; D63.8 Anemia in other chronic diseases classified elsewhere; J44.9 Chronic obstructive pulmonary disease, unspecified; M10.9 Gout, unspecified; F17.210 Nicotine dependence, cigarettes, uncomplicated; Y84.8 Other medical procedures as the cause of abnormal reaction of the patient, or of later complication, without mention of misadventure at the time of the procedure; Y82.8 Other medical devices associated with adverse incidents; Y92.230 Patient room in hospital as the place of occurrence of the external cause; Y93.89 Activity, other specified; W06.XXXA Fall from bed, initial encounter; Y93.84 Activity, sleeping; Y92.9 Unspecified place or not applicable; Z99.2 Dependence on renal dialysis; Z85.528 Personal history of other malignant neoplasm of kidney
CPT/HCPCS: 01230; 36415; 36430; 43239; 71010; 80048; 80053; 81001; 82272; 82550; 82553; 82962; 83735; 84100; 84484; 85025; 85027; 85362; 85384; 85610; 85730; 86317; 86704; 86850; 86900; 86901; 86920; 87040; 87086; 87340; 87493; 87522; 88305; 88342; 93005; 93010; 94640; 94799; 96374; 96375; 99285; C9290; G8978-GP; G8979-GP; G8987-GO; G8988-GO; J0171; J0610; J0690; J1170; J1610; J1630; J1644; J2250; J2310; J2405; J2543; J2550; J2597; J2704; J2930; J3010; J3430; J3490; J7030; J7120; J7620; P9016; Q4081; S0164

== ENCOUNTER 2016-10-25 15:44 | Inpatient (IN) | payer MEDICARE ==
[2016-10-25] MEDS ORDERED: NORMAL SALINE 1000 ML 1,000 ML IV ONE (16:13)
[2016-10-25] MEDS ORDERED: ACETAMINOPHEN 325 MG TABLET PO ONE (16:29)
[2016-10-25 16:40] LABS: ABSOLUTE BASOPHILS # (AUTO) 0.1 10^3/uL (0.0-0.2); ABSOLUTE LYMPHOCYTES (AUTO) 0.9 10^3/uL (0.5-4.7); ABSOLUTE MONOCYTES (AUTO) 0.9 10^3/uL (0.1-1.4); ABSOLUTE NEUT (AUTO) 11.5 10^3/uL (1.7-8.2); BASOPHILS % (AUTO) 0.5 % (0-2); EOSINOPHILS % (AUTO) 0.1 % (0-6); HEMATOCRIT 35.2 % (37.9-51.0); HEMOGLOBIN 11.7 g/dL (13.5-17.0); HGB HCT DIFFERENCE -0.1; LYMPHOCYTES % (AUTO) 6.8 % (13-45); MEAN CORPUSCULAR HGB CONC 33.2 g/dL (32.0-36.0); MEAN CORPUSCULAR VOLUME 90 fl (80-97); MONOCYTES % (AUTO) 6.9 % (3-13); RED BLOOD COUNT 3.89 10^6/uL (4.35-5.55); RED CELL DISTRIBUTION WIDTH 15.7 % (11.5-14.0); SEGMENTED NEUTROPHILS % (AUTO) 85.7 % (42-78); VENOUS BLOOD BASE EXCESS 5.1 mmol/L; VENOUS BLOOD HCO3 30.9 mmol/L (20-32); VENOUS BLOOD PH 7.4 (7.30-7.42); WHITE BLOOD COUNT 13.4 10^3/uL (4.0-10.5)
[2016-10-25 16:45] LABS: PROTHROMBIN TIME 13.6 SEC (11.4-15.4)
[2016-10-25 16:58] LABS: ALANINE AMINOTRANSFERASE 27 U/L (21-72); ALKALINE PHOSPHATASE 115 U/L (38-126); ANION GAP 15 (5-19); ASPARTATE AMINO TRANSFERASE 32 U/L (17-59); BILIRUBIN,DIRECT 0.4 mg/dL (0.0-0.4); BILIRUBIN,TOTAL 0.9 mg/dL (0.2-1.3); BLOOD UREA NITROGEN 13 mg/dL (7-20); CALCIUM 8.7 mg/dL (8.4-10.2); CARBON DIOXIDE 31 mmol/L (22-30); CHLORIDE 98 mmol/L (98-107); CREATINE KINASE 361 U/L (55-170); GLUCOSE 158 mg/dL (75-110); POTASSIUM 4.4 mmol/L (3.6-5.0); SODIUM 143.8 mmol/L (137-145); TOTAL PROTEIN 7.6 g/dL (6.3-8.2)
--- NOTE | 2016-10-25 17:04 | ER Document Report ---
ED Fever - General Time seen by provider: 16:30 Mode of Arrival: Ambulatory Information source: Patient TRAVEL OUTSIDE OF THE [place] IN LAST 30 DAYS: No - HPI Onset: Other - see HPI note Associated symptoms: Fever Similar symptoms previously: No Recently seen / treated by doctor: Yes - dialysis <JEREMY KING - Last Filed: 10/25/16 19:03> <SHANSEAN KARINA - Last Filed: 10/25/16 22:06> - General Chief Complaint: Fever Stated Complaint: ALTERED MENTAL STATUS Notes: Patient is a 76 year old male presenting to the emergency department for altered mental status. Patient is febrile upon arrival. Patient finished dialysis today and also vomited some during dialysis. Patient was given antibiotics by Dr. Cespedes. Patient last had tylenol at 13:00. Patient's family state that his behavior is consistent with how he acts when he has a fever. Patient had pneumonia 2 months ago and has had a slight cough. Patient's coding quality coordinator is Dr. Cespedes and patient's PCP is [facility]. (JEREMY KING) - Related Data Allergies/Adverse Reactions: ciprofloxacin [From Cipro] Allergy (Verified 08/30/14 11:49) Past Medical History - General Information source: Patient - Social History Smoking Status: Unknown if Ever Smoked Family History: None Patient has suicidal ideation: No Patient has homicidal ideation: No - Past Medical History Cardiac Medical History: Reports: Hx Congestive Heart Failure, Hx Coronary Artery Disease, Hx Hypercholesterolemia, Hx Hypertension, Hx Peripheral Vascular Disease Pulmonary Medical History: Reports: Hx COPD - Possible Renal/ Medical History: Reports: Hx End Stage Renal Disease - On hemodialysis Sunday and Sunday Malignancy Medical History: Reports Hx Renal (Kidney) Cancer Musculoskeltal Medical History: Reports Hx Gout Infectious Medical History: Reports: Hx C-Diff Past Surgical History: Reports: Hx Cardiac Catheterization, Hx Cardiac Surgery - CABG, Hx Coronary Artery Bypass Graft, Hx Genitourinary Surgery - urostomy, Hx Vascular Surgery - AAA repair, Other - Nephrostomy tube placement, creation of ileal conduit, prostatectomy - Immunizations Immunizations up to date: Yes Hx Diphtheria, Pertussis, Tetanus Vaccination: Yes Hx Pneumococcal Vaccination: 04/17/14 <JEREMY KING - Last Filed: 10/25/16 19:03> Review of Systems - Review of Systems -: Yes ROS unobtainable due to patient's medical condition Constitutional: Fever Gastrointestinal: Vomiting <JEREMY KING - Last Filed: 10/25/16 19:03> Physical Exam - Vital signs Interpretation: Hypotensive, Tachycardic, Febrile <JEREMY KING - Last Filed: 10/25/16 19:03> <SEAN TORREZ - Last Filed: 10/25/16 22:06> - Vital signs Vitals: Resp Pulse Ox 23 H 92 10/25/16 16:19 10/25/16 16:19 Resp Pulse Ox 23 H 92 10/25/16 16:19 10/25/16 16:19 (JEREMY KING) Course - Laboratory Result Diagrams: 10/25/16 16:26 10/25/16 16:26 - Consults Dr. Cespedes Time consulted: 16:45 Dr. Barboza Time consulted: 17:07 Consulted provider: will see as inpatient <JEREMY KING - Last Filed: 10/25/16 19:03> - Laboratory Result Diagrams: 10/25/16 16:26 10/25/16 16:26 <SEAN TORREZ - Last Filed: 10/25/16 22:06> - Re-evaluation Re-evalutation: 10/25/16 Patient is a 76-year-old male who presents with fever, altered mental status, hypotension from dialysis. Patient had been seen by Dr. Luciano food given vancomycin, gentamicin, and sent cultures. Patient has a urinary tract infection which is likely the source of his sepsis. Discussed with the hospital service and patient will be admitted. (SEAN TORREZ) - Vital Signs Vital signs: Temp Pulse Resp BP Pulse Ox 19 136/73 H 99 10/25/16 21:31 10/25/16 21:31 10/25/16 21:31 - Laboratory Laboratory results interpreted by me: 10/25/16 10/25/16 10/25/16 16:26 16:26 16:26 WBC 13.4 H RBC 3.89 L Hgb 11.7 L Hct 35.2 L RDW 15.7 H Seg Neutrophils % 85.7 H Lymphocytes % 6.8 L Absolute Neutrophils 11.5 H Carbon Dioxide 31 H Creatinine 2.20 H Est GFR ( Amer) 35 L Est GFR (Non-Af Amer) 29 L Glucose 158 H Lactic Acid 2.8 H Creatine Kinase 361 H Urine Protein Urine Blood Ur Leukocyte Esterase 10/25/16 17:30 WBC RBC Hgb Hct RDW Seg Neutrophils % Lymphocytes % Absolute Neutrophils Carbon Dioxide Creatinine Est GFR ( Amer) Est GFR (Non-Af Amer) Glucose Lactic Acid Creatine Kinase Urine Protein 100 H Urine Blood MODERATE H Ur Leukocyte Esterase LARGE H - Consults Dr. Cespedes Reason for consultation: 10/25/16 16:45 Contacted/paged Dr. Cespedes to discuss patient; she will call back. 10/25/16 16:48 Dr. Cespedes called back to discuss patient; she gave the patient vancomycin, gentamicin and sent blood cultures. (JEREMY KING) Dr. Barboza Reason for consultation: 10/25/16 17:[address] Barboza for possible admission; patient will be admitted to the ICU. 10/25/16 18:[address] Barboza in the ED about patient. (JEREMY KING) Critical Care Note - Critical Care Note Total time excluding time spent on procedures (mins): 35 - evaluation and management of fever, hypotension, management of sepsis, coordination of admission, counseling of family, coordination with specialist <SEAN TORREZ - Last Filed: 10/25/16 22:06> Discharge <JEREMY KING - Last Filed: 10/25/16 19:03> - Discharge Admitting Provider: Eusebia Barboza Unit Admitted: ICU <SEAN TORREZ - Last Filed: 10/25/16 22:06> - Discharge Clinical Impression: Acute encephalopathy Sepsis Qualifiers: Sepsis type: sepsis due to unspecified organism Qualified Code(s): A41.9 - Sepsis, unspecified organism Urinary tract infection Qualifiers: Urinary tract infection type: site unspecified Hematuria presence: with hematuria Qualified Code(s): N39.0 - Urinary tract infection, site not specified ; R31.9 - Hematuria, unspecified Condition: Stable Disposition: ADMITTED INPATIENT Scribe Attestation: 10/25/16 22:06 I personally performed the services described in the documentation, reviewed and edited the documentation which was dictated to the scribe in my presence, and it accurately records my words and actions. (SEAN TORREZ) Scribe Documentation - Scribe Written by Scribe:: Jeremy King 10/25/16 18:50 acting as scribe for :: Shan <JEREMY KING - Last Filed: 10/25/16 19:03>
[2016-10-25 17:09] LABS: CREATINE KINASE MB 2.11 ng/mL (<4.55)
[2016-10-25 17:24] LABS: TROPONIN I 0.048 ng/mL
[2016-10-25] MEDS ORDERED: ONDANSETRON HCL INJ/PF 4 MG/2 ML SDV IV PRN (17:41)
[2016-10-25] MEDS ORDERED: ALBUTEROL SULFATE 0.083% NEB 2.5 MG/3 ML AMPUL NEB PRN (17:41)
[2016-10-25] MEDS ORDERED: VANCOMYCIN HCL 1,000 MG in DEXTROSE 5%-WATER 250 ML IV SCH (18:00)
[2016-10-25] MEDS ORDERED: GENTAMICIN SULFATE 100 MG in DEXTROSE 5%-WATER 100 ML IV SCH (18:00)
[2016-10-25 18:02] LABS: APPEARANCE,URINE CLOUDY; BILIRUBIN,URINE NEGATIVE (NEGATIVE); GLUCOSE, URINE NEGATIVE (NEGATIVE); KETONES,URINE NEGATIVE (NEGATIVE); LEUKOCYTE ESTERASE,URINE LARGE (NEGATIVE); NITRITE,URINE NEGATIVE (NEGATIVE); PROTEIN,URINE 100 mg/dL (NEGATIVE); URINE SPECIFIC GRAVITY 1.012; UROBILINOGEN,URINE NEGATIVE mg/dL (<2.0)
--- NOTE | 2016-10-25 18:17 | PDOC H&P ---
History of Present Illness Admission Date/PCP: BRIAN RODRIGUEZ MD Patient complains of: Fever History of Present Illness: TYLOR JIMENEZ is a 76 year old male with past medical history of end-stage renal disease on hemodialysis that is brought to the emergency department after having been noted to have fever at dialysis today. He was administered IV vancomycin and IV gentamicin after dialysis. He has no particular symptoms however he does have a urostomy tube and his states that he has had "foul" urine. Medications listed below have not been verified at the time of this documentation. Past Medical History Cardiac Medical History: Reports: Congestive Heart Failure, Coronary Artery Disease, Hyperlipidema, Hypertension, Peripheral Vascular Disease Pulmonary Medical History: Reports: Chronic Obstructive Pulmonary Disease (COPD ) - Possible Neurological Medical History: Denies: Seizures Renal/ Medical History: Reports: End Stage Renal Disease - On hemodialysis Sunday and Sunday Malignancy Medical History: Reports: Renal (Kidney) Cancer Musculoskeltal Medical History: Reports: Gout Psychiatric Medical History: Denies: Depression Infectious Medical History: Reports: Clostridium Difficile Past Surgical History Past Surgical History: Reports: Cardiac Catheterization, Coronary Artery Bypass Graft, Orthopedic Surgery - Right hip hemiarthroplasty August 2016, Vascular Surgery - AAA repair, Other - Nephrostomy tube placement, creation of ileal conduit , prostatectomy Social History Information Source: Patient, Relative Lives with: Family Smoking Status: Former Smoker Frequency of Alcohol Use: None Hx Recreational Drug Use: No Drugs: None Hx Prescription Drug Abuse: No - Advance Directive Resuscitation Status: Do Not Resuscitate Family History Family History: Malignancy - Father and brother Parental Family History Reviewed: Yes Children Family History Reviewed: Yes Sibling(s) Family History Reviewed.: Yes Medication/Allergy Home Medications: Albuterol Sulfate [Proair HFA] 2 puff IH Q6HP PRN 08/28/16 Atorvastatin Calcium [Lipitor 20 mg Tablet] 20 mg PO QHS 08/28/16 B Complex & C No.20/Folic Acid [Nephrocaps Softgel] 1 mg PO QHS 08/28/16 Isosorbide Dinitrate [Isordil Titradose 20 mg Tablet] 20 mg PO Q12 08/28/16 L. Rhamnosus GG/Inulin [Culturelle Capsule] 1 each PO DAILY 08/28/16 Magnesium Oxide [Mag-Ox 400 mg Tablet] 400 mg PO DAILY 08/28/16 Omeprazole 20 mg PO DAILY 08/28/16 Sodium Bicarbonate [Sodium Bicarbonate 650 mg Tablet] 650 mg PO Q12 08/28/16 Aspirin [Ecotrin 81 mg EC Tablet] 81 mg PO DAILY #0 tabec 09/08/16 Doxycycline Hyclate [Vibramycin 100 mg Tablet] 100 mg PO Q12A #14 tablet Ferrous Sulfate [Feosol 325 mg Tablet] 325 mg PO DAILY #0 tablet 09/08/16 Guaifenesin [Mucinex Sr 600 mg Tablet.sa] 600 mg PO Q12 #0 tablet.sa 09/08/16 Ipratropium/Albuterol Sulfate [Duoneb 3 ml Ampul] 3 ml NEB RTQ6HP PRN #0 vial.neb 09/08/16 Sucralfate [Carafate Susp 1 gm/10 ml Udcup] 1 gm PO Q6 #0 udc 09/08/16 Allergies/Adverse Reactions: ciprofloxacin [From Cipro] Allergy (Verified 08/30/14 11:49) Review of Systems Constitutional: PRESENT: fatigue, fever(s). ABSENT: chills, headache(s), weight gain, weight loss Eyes: ABSENT: visual disturbances Ears: ABSENT: hearing changes Cardiovascular: ABSENT: chest pain, dyspnea on exertion, edema, orthropnea, palpitations Respiratory: ABSENT: cough, hemoptysis Gastrointestinal: ABSENT: abdominal pain, constipation, diarrhea, hematemesis, hematochezia, nausea, vomiting Genitourinary: ABSENT: dysuria, hematuria Musculoskeletal: ABSENT: joint swelling Integumentary: ABSENT: rash, wounds Neurological: ABSENT: abnormal gait, abnormal speech, confusion, dizziness, focal weakness, syncope Psychiatric: ABSENT: anxiety, depression, homidical ideation, suicidal ideation Endocrine: ABSENT: cold intolerance, heat intolerance, polydipsia, polyuria Hematologic/Lymphatic: ABSENT: easy bleeding, easy bruising Physical Exam Vital Signs: Temp Pulse Resp BP Pulse Ox 24 H 103/61 98 10/25/16 17:01 10/25/16 17:01 10/25/16 17:01 Intake & Output 10/24/16 10/25/16 10/26/16 06:59 06:59 06:59 Weight 79.1 kg PHYSICAL EXAM: GENERAL: Appears well, no acute distress HEENT: Normocephalic, no scleral icterus, conjunctiva clear, EOEM intact, PERRLA , moist mucous membranes NECK: trachea midline, no thyromegally RESPIRATORY: Clear to auscultation, no wheezes/rhonchi CARDIAC: Regular rate and rhythm, no murmur/julian/rub ABDOMEN: Soft, no distension, no tenderness, no guarding, normal bowel sounds, negative Garcia sign RECTAL: deferred : Urostomy tube in place EXTREMITIES: No edema, cyanosis, clubbing MUSCULOSKELETAL: No joint swelling or deformity VASCULAR: normal peripheral pulses NEUROLOGIC: Alert, oriented to person/place/time, normal speech, cranial nerves grossly intact, 5/5 strength in all extremities, tactile sensation intact in all extremities SKIN: No rash, no wounds, no worrisome skin lesions PSYCHIATRIC: Normal mood, flat affect Results Laboratory Results: 10/25/16 16:26 10/25/16 16:26 10/25/16 10/25/16 10/25/16 16:26 16:26 16:26 WBC 13.4 H RBC 3.89 L Hgb 11.7 L Hct 35.2 L MCV 90 MCH 30.0 MCHC 33.2 RDW 15.7 H Plt Count 158 Seg Neutrophils % 85.7 H Lymphocytes % 6.8 L Monocytes % 6.9 Eosinophils % 0.1 Basophils % 0.5 Absolute Neutrophils 11.5 H Absolute Lymphocytes 0.9 Absolute Monocytes 0.9 Absolute Eosinophils 0.0 Absolute Basophils 0.1 VBG pH VBG pCO2 VBG HCO3 VBG Base Excess Sodium 143.8 Potassium 4.4 Chloride 98 Carbon Dioxide 31 H Anion Gap 15 BUN 13 Creatinine 2.20 H Est GFR ( Amer) 35 L Est GFR (Non-Af Amer) 29 L Glucose 158 H Lactic Acid 2.8 H Calcium 8.7 Total Bilirubin 0.9 AST 32 ALT 27 Alkaline Phosphatase 115 Total Protein 7.6 Albumin 4.0 10/25/16 16:26 WBC RBC Hgb Hct MCV MCH MCHC RDW Plt Count Seg Neutrophils % Lymphocytes % Monocytes % Eosinophils % Basophils % Absolute Neutrophils Absolute Lymphocytes Absolute Monocytes Absolute Eosinophils Absolute Basophils VBG pH 7.40 VBG pCO2 51.0 VBG HCO3 30.9 VBG Base Excess 5.1 Sodium Potassium Chloride Carbon Dioxide Anion Gap BUN Creatinine Est GFR ( Amer) Est GFR (Non-Af Amer) Glucose Lactic Acid Calcium Total Bilirubin AST ALT Alkaline Phosphatase Total Protein Albumin 10/25/16 10/25/16 16:26 16:26 Creatine Kinase 361 H CK-MB (CK-2) 2.11 Troponin I 0.048 Impressions: Chest X-Ray 10/25/16 00:00 IMPRESSION: NO ACUTE CARDIOPULMONARY PROCESS. NO SIGNIFICANT CHANGE FROM PRIOR STUDY. Assessment & Plan - Diagnosis (1) Sepsis Is this a current diagnosis for this admission?: YesPlan: Secondary to urinary tract infection most likely. Patient was administered IV vancomycin and IV gentamicin after hemodialysis today. I will start him on IV Rocephin pending further blood cultures and urine culture. I will continue IV vancomycin and IV gentamicin after nephrology with nephrology dose. Patient will be admitted to the intensive care unit given the fact that he has sepsis/hypotension and end-stage renal disease. Is going to be difficult to manage his fluid balance and hypotension without compromising his respiratory status. (2) Urinary tract infection Is this a current diagnosis for this admission?: YesPlan: Associated with urostomy tube. Continue above-mentioned antibiotics pending further urine culture. (3) End-stage renal disease on hemodialysis Is this a current diagnosis for this admission?: YesPlan: Patient is on Sunday hemodialysis. He had hemodialysis today. Consult Dr. Cespedes of nephrology. (4) COPD (chronic obstructive pulmonary disease) Qualifiers: COPD type: unspecified COPD Qualified Code(s): J44.9 - Chronic obstructive pulmonary disease, unspecified Is this a current diagnosis for this admission?: YesPlan: When necessary albuterol nebulizer treatments. (5) Coronary artery disease Qualifiers: Coronary Disease-Associated Artery/Lesion type: [place] artery [place] vs. transplanted heart: [place] heart Associated angina: without angina Qualified Code(s): I25.10 - Atherosclerotic heart disease of [place] coronary artery without angina pectoris Is this a current diagnosis for this admission?: YesPlan: Status post coronary artery bypass graft 20 years ago. Verify home medications. (6) Hypertension Qualifiers: Hypertension type: essential hypertension Qualified Code(s): I10 - Essential (primary) hypertension Is this a current diagnosis for this admission?: Yes (7) H/O endovascular stent graft for abdominal aortic aneurysm Is this a current diagnosis for this admission?: Yes (8) PVD (peripheral vascular disease) Is this a current diagnosis for this admission?: Yes (9) Do not resuscitate Is this a current diagnosis for this admission?: YesPlan: This is addressed with patient's and daughter at the bedside again today. They desire for patient to be DO NOT RESUSCITATE status. - Time Time Spent: Greater than 70 Minutes
--- NOTE | 2016-10-25 19:05 | EKG REPORT ---
SEVERITY:- NORMAL ECG - SINUS RHYTHM : Confirmed by: Brooks Edouard MD 25-Oct-2016 19:04:20
[2016-10-26] MEDS: CEFTRIAXONE 1 GM/D5W RTU 1 GM/50 ML RTUPB IV SCH ×2 (01:28→17:59)
[2016-10-26] MEDS: DEXTROSE 5%-1/2 NORMAL SALINE 1,000 ML IV PRN ×2 (01:29→15:37)
[2016-10-26] MEDS ORDERED: HYDROMORPHONE HCL INJ/PF 2 MG/ML AMPULE ONE (01:44)
[2016-10-26] MEDS: ACETAMINOPHEN 325 MG TABLET PO PRN ×4 (02:42→23:30)
[2016-10-26] MEDS: HEPARIN SOD (PORCINE) 5,000 UNIT/ML 1 ML SYRINGE SUBCUT SCH ×4 (05:16→21:09)
[2016-10-26 06:26] LABS: ABSOLUTE LYMPHOCYTES (AUTO) 0.9 10^3/uL (0.5-4.7); ABSOLUTE MONOCYTES (AUTO) 0.6 10^3/uL (0.1-1.4); ABSOLUTE NEUT (AUTO) 6.8 10^3/uL (1.7-8.2); BASOPHILS % (AUTO) 0.5 % (0-2); EOSINOPHILS % (AUTO) 0.2 % (0-6); HEMATOCRIT 33.6 % (37.9-51.0); HEMOGLOBIN 11.3 g/dL (13.5-17.0); HGB HCT DIFFERENCE 0.3; LYMPHOCYTES % (AUTO) 10.7 % (13-45); MEAN CORPUSCULAR HEMOGLOBIN 30.4 pg (27.0-33.4); MEAN CORPUSCULAR HGB CONC 33.5 g/dL (32.0-36.0); MEAN CORPUSCULAR VOLUME 91 fl (80-97); MONOCYTES % (AUTO) 7.4 % (3-13); RED CELL DISTRIBUTION WIDTH 16.1 % (11.5-14.0); SEGMENTED NEUTROPHILS % (AUTO) 81.2 % (42-78); WHITE BLOOD COUNT 8.4 10^3/uL (4.0-10.5)
[2016-10-26 06:45] LABS: ANION GAP 14 (5-19); BLOOD UREA NITROGEN 20 mg/dL (7-20); CALCIUM 8.1 mg/dL (8.4-10.2); CARBON DIOXIDE 27 mmol/L (22-30); CHLORIDE 102 mmol/L (98-107); CREATININE RESULT 2.88 mg/dL (0.52-1.25); GLUCOSE 115 mg/dL (75-110); POTASSIUM 4.6 mmol/L (3.6-5.0)
[2016-10-26] MEDS ORDERED: DEXTROSE 5%-1/2 NORMAL SALINE 1,000 ML IV PRN (20:18)
[2016-10-26] MEDS: SODIUM BICARBONATE 650 MG TABLET PO SCH (21:09)
[2016-10-26] MEDS: ATORVASTATIN CALCIUM 20 MG TABLET PO SCH (21:09)
[2016-10-26] MEDS: FOLIC ACID/VITAMIN B COMP W-C CAPSULE PO SCH (21:09)
--- NOTE | 2016-10-26 21:55 | PDOC PROGRESS REPORT ---
Subjective Progress Note for:: 10/26/16 Subjective:: Patient has continued fevers. Does not feel generally better than admission. Denies chest pain, dyspnea, abdominal pain. Physical Exam Vital Signs: Temp Pulse Resp BP Pulse Ox 99.7 F 74 18 117/45 L 92 10/26/16 19:36 10/26/16 19:36 10/26/16 19:36 10/26/16 19:36 10/26/16 19:36 Intake & Output 10/25/16 10/26/16 10/27/16 06:59 06:59 06:59 Intake Total 180 1062 Output Total 200 225 Balance -20 837 Weight 80.6 kg General appearance: PRESENT: no acute distress, well-developed, well-nourished Head exam: PRESENT: atraumatic, normocephalic Eye exam: PRESENT: conjunctiva pink, EOMI, PERRLA. ABSENT: scleral icterus Ear exam: PRESENT: normal external ear exam Mouth exam: PRESENT: moist, tongue midline Neck exam: ABSENT: carotid bruit, JVD, lymphadenopathy, thyromegaly Respiratory exam: PRESENT: clear to auscultation jenni. ABSENT: rales, rhonchi, wheezes Cardiovascular exam: PRESENT: RRR. ABSENT: diastolic murmur, rubs, systolic murmur Pulses: PRESENT: normal dorsalis pedis pul Vascular exam: PRESENT: normal capillary refill GI/Abdominal exam: PRESENT: normal bowel sounds, soft, other - urostomy RLQ with clear yellow urine. ABSENT: distended, guarding, mass, organolmegaly, rebound, tenderness Rectal exam: PRESENT: deferred Extremities exam: PRESENT: full ROM. ABSENT: calf tenderness, clubbing, pedal edema Neurological exam: PRESENT: alert, awake, oriented to person, oriented to place , oriented to time, oriented to situation, CN II-XII grossly intact. ABSENT: motor sensory deficit Psychiatric exam: PRESENT: appropriate affect, normal mood. ABSENT: homicidal ideation, suicidal ideation Skin exam: PRESENT: dry, intact, warm. ABSENT: cyanosis, rash Results Laboratory Results: 10/26/16 06:16 10/26/16 06:16 10/26/16 10/26/16 06:16 06:16 WBC 8.4 RBC 3.70 L Hgb 11.3 L Hct 33.6 L MCV 91 MCH 30.4 MCHC 33.5 RDW 16.1 H Plt Count 133 L Seg Neutrophils % 81.2 H Lymphocytes % 10.7 L Monocytes % 7.4 Eosinophils % 0.2 Basophils % 0.5 Absolute Neutrophils 6.8 Absolute Lymphocytes 0.9 Absolute Monocytes 0.6 Absolute Eosinophils 0.0 Absolute Basophils 0.0 Sodium 143.0 Potassium 4.6 Chloride 102 Carbon Dioxide 27 Anion Gap 14 BUN 20 Creatinine 2.88 H Est GFR ( Amer) 26 L Est GFR (Non-Af Amer) 21 L Glucose 115 H Calcium 8.1 L 10/25/16 20:48 Blood Culture - Preliminary Blood NO GROWTH IN 24 HOURS 10/25/16 17:30 Urine Culture - Preliminary Urostomy Bag Gram Negative Rods 10/25/16 16:26 Blood Culture - Preliminary Blood NO GROWTH IN 24 HOURS Impressions: Chest X-Ray 10/25/16 00:00 IMPRESSION: NO ACUTE CARDIOPULMONARY PROCESS. NO SIGNIFICANT CHANGE FROM PRIOR STUDY. Renal Ultrasound 10/25/16 00:00 IMPRESSION: Chronic medical renal disease. Assessment & Plan - Diagnosis (1) Sepsis Qualifiers: Sepsis type: sepsis due to unspecified organism Qualified Code(s): A41.9 - Sepsis, unspecified organism Is this a current diagnosis for this admission?: YesPlan: Secondary to urinary tract infection most likely. Patient was administered IV vancomycin and IV gentamicin after hemodialysis 10/25/16. Continue IV Rocephin pending further blood cultures and urine culture. (2) Urinary tract infection Is this a current diagnosis for this admission?: YesPlan: Associated with urostomy tube. Continue above-mentioned antibiotics pending further urine culture. Renal U/s unremarkable. (3) End-stage renal disease on hemodialysis Is this a current diagnosis for this admission?: YesPlan: Patient is on Sunday hemodialysis. He had hemodialysis . Consulted Dr. Cespedes of nephrology. (4) COPD (chronic obstructive pulmonary disease) Qualifiers: COPD type: unspecified COPD Qualified Code(s): J44.9 - Chronic obstructive pulmonary disease, unspecified Is this a current diagnosis for this admission?: YesPlan: When necessary albuterol nebulizer treatments. (5) Coronary artery disease Qualifiers: Coronary Disease-Associated Artery/Lesion type: [place] artery [place] vs. transplanted heart: [place] heart Associated angina: without angina Qualified Code(s): I25.10 - Atherosclerotic heart disease of [place] coronary artery without angina pectoris Is this a current diagnosis for this admission?: YesPlan: Status post coronary artery bypass graft 20 years ago. Continue ASA, Lipitor. Hold Imdur due to low BP's, sepsis. (6) Hypertension Qualifiers: Hypertension type: essential hypertension Qualified Code(s): I10 - Essential (primary) hypertension Is this a current diagnosis for this admission?: Yes (7) H/O endovascular stent graft for abdominal aortic aneurysm Is this a current diagnosis for this admission?: Yes (8) PVD (peripheral vascular disease) Is this a current diagnosis for this admission?: Yes (9) Do not resuscitate Is this a current diagnosis for this admission?: Yes - Time Time Spent with patient: 35 or more minutes Anticipated discharge: Home
[2016-10-27 04:44] LABS: ABSOLUTE MONOCYTES (AUTO) 0.5 10^3/uL (0.1-1.4); ABSOLUTE NEUT (AUTO) 3.6 10^3/uL (1.7-8.2); BASOPHILS % (AUTO) 0.7 % (0-2); EOSINOPHILS % (AUTO) 0.5 % (0-6); HEMATOCRIT 30.2 % (37.9-51.0); HEMOGLOBIN 10.1 g/dL (13.5-17.0); HGB HCT DIFFERENCE 0.1; LYMPHOCYTES % (AUTO) 19.6 % (13-45); MEAN CORPUSCULAR HEMOGLOBIN 30.2 pg (27.0-33.4); MEAN CORPUSCULAR HGB CONC 33.6 g/dL (32.0-36.0); MEAN CORPUSCULAR VOLUME 90 fl (80-97); MONOCYTES % (AUTO) 9.3 % (3-13); RED BLOOD COUNT 3.35 10^6/uL (4.35-5.55); RED CELL DISTRIBUTION WIDTH 15.7 % (11.5-14.0); SEGMENTED NEUTROPHILS % (AUTO) 69.9 % (42-78); WHITE BLOOD COUNT 5.1 10^3/uL (4.0-10.5)
[2016-10-27 05:05] LABS: ANION GAP 11 (5-19); BLOOD UREA NITROGEN 33 mg/dL (7-20); CALCIUM 7.9 mg/dL (8.4-10.2); CARBON DIOXIDE 26 mmol/L (22-30); CHLORIDE 105 mmol/L (98-107); CREATININE RESULT 3.78 mg/dL (0.52-1.25); GLUCOSE 124 mg/dL (75-110); POTASSIUM 4.3 mmol/L (3.6-5.0); SODIUM 141.8 mmol/L (137-145)
[2016-10-27] MEDS: LANSOPRAZOLE 15 MG TAB.RAP.DR PO SCH (06:38)
[2016-10-27] MEDS: HEPARIN SOD (PORCINE) 5,000 UNIT/ML 1 ML SYRINGE SUBCUT SCH ×3 (06:38→22:37)
[2016-10-27] MEDS ORDERED: (PENDING PHARMACY ID) (L. Rhamnosus Gg/Inulin [Culturelle Capsule] 1 EACH) PO SCH (10:00)
[2016-10-27] MEDS ORDERED: FERROUS SULFATE 325 MG TABLET PO SCH (10:00)
[2016-10-27] MEDS ORDERED: ASPIRIN 81 MG TABLET, ENT COATED PO SCH (10:00)
[2016-10-27] MEDS ORDERED: MAGNESIUM OXIDE 400 MG TABLET PO SCH (10:00)
[2016-10-27] MEDS ORDERED: LACTOBACILLUS ACIDOPHILUS 250 MG TAB PO SCH (10:00)
[2016-10-27] MEDS: SODIUM BICARBONATE 650 MG TABLET PO SCH (12:35)
--- NOTE | 2016-10-27 14:51 | PDOC PROGRESS REPORT ---
Subjective Progress Note for:: 10/27/16 Subjective:: Denies any complaints today. Physical Exam Vital Signs: Temp Pulse Resp BP Pulse Ox 99.0 F 107 H 19 105/53 L 91 L 10/27/16 12:40 10/27/16 12:40 10/27/16 12:40 10/27/16 12:40 10/27/16 12:40 Intake & Output 10/26/16 10/27/16 10/28/16 06:59 06:59 06:59 Intake Total 180 1686 0 Output Total 200 450 225 Balance -20 1236 -225 Weight 80.6 kg 80.9 kg General appearance: PRESENT: no acute distress Eye exam: PRESENT: conjunctiva pink. ABSENT: scleral icterus Mouth exam: PRESENT: moist, tongue midline Neck exam: ABSENT: carotid bruit, JVD, lymphadenopathy, thyromegaly Respiratory exam: PRESENT: clear to auscultation jenni. ABSENT: rales, rhonchi, wheezes Cardiovascular exam: PRESENT: RRR. ABSENT: diastolic murmur, rubs, systolic murmur GI/Abdominal exam: PRESENT: normal bowel sounds, soft. ABSENT: distended, guarding, mass, organolmegaly, rebound, tenderness Extremities exam: ABSENT: calf tenderness, clubbing, pedal edema Neurological exam: PRESENT: alert, awake, oriented to person, oriented to place , oriented to time, oriented to situation, CN II-XII grossly intact. ABSENT: motor sensory deficit Psychiatric exam: PRESENT: appropriate affect Results Laboratory Results: 10/27/16 04:27 10/27/16 04:27 10/27/16 10/27/16 04:27 04:27 WBC 5.1 RBC 3.35 L Hgb 10.1 L Hct 30.2 L MCV 90 MCH 30.2 MCHC 33.6 RDW 15.7 H Plt Count 122 L Seg Neutrophils % 69.9 Lymphocytes % 19.6 Monocytes % 9.3 Eosinophils % 0.5 Basophils % 0.7 Absolute Neutrophils 3.6 Absolute Lymphocytes 1.0 Absolute Monocytes 0.5 Absolute Eosinophils 0.0 Absolute Basophils 0.0 Sodium 141.8 Potassium 4.3 Chloride 105 Carbon Dioxide 26 Anion Gap 11 BUN 33 H Creatinine 3.78 H Est GFR ( Amer) 19 L Est GFR (Non-Af Amer) 16 L Glucose 124 H Calcium 7.9 L Impressions: Chest X-Ray 10/25/16 00:00 IMPRESSION: NO ACUTE CARDIOPULMONARY PROCESS. NO SIGNIFICANT CHANGE FROM PRIOR STUDY. Renal Ultrasound 10/25/16 00:00 IMPRESSION: Chronic medical renal disease. Assessment & Plan - Diagnosis (1) Sepsis Qualifiers: Sepsis type: sepsis due to unspecified organism Qualified Code(s): A41.9 - Sepsis, unspecified organism Is this a current diagnosis for this admission?: YesPlan: Secondary to his urinary tract infection (2) UTI (urinary tract infection) Qualifiers: Urinary tract infection type: site unspecified Hematuria presence: with hematuria Qualified Code(s): N39.0 - Urinary tract infection, site not specified Is this a current diagnosis for this admission?: YesPlan: Growing out Klebsiella and Citrobacter. (3) COPD (chronic obstructive pulmonary disease) Qualifiers: COPD type: unspecified COPD Qualified Code(s): J44.9 - Chronic obstructive pulmonary disease, unspecified Is this a current diagnosis for this admission?: Yes (4) Chronic kidney disease, stage IV (severe) Is this a current diagnosis for this admission?: YesPlan: Patient had dialysis today. (5) Coronary artery disease Qualifiers: Coronary Disease-Associated Artery/Lesion type: [place] artery [place] vs. transplanted heart: [place] heart Associated angina: without angina Qualified Code(s): I25.10 - Atherosclerotic heart disease of [place] coronary artery without angina pectoris Is this a current diagnosis for this admission?: YesPlan: Denies any chest pain. (6) Hypertension Qualifiers: Hypertension type: essential hypertension Qualified Code(s): I10 - Essential (primary) hypertension Is this a current diagnosis for this admission?: Yes (7) H/O endovascular stent graft for abdominal aortic aneurysm Is this a current diagnosis for this admission?: Yes (8) PVD (peripheral vascular disease) Is this a current diagnosis for this admission?: Yes (9) Do not resuscitate Is this a current diagnosis for this admission?: Yes - Time Time Spent with patient: 25-34 minutes - Inpatient Certification Medical Necessity: Need for IV Antibiotics - Plan Summary Plan Summary: If the patient remains afebrile we may be able to discharge home tomorrow.
[2016-10-27] MEDS: CEFTRIAXONE 1 GM/D5W RTU 1 GM/50 ML RTUPB IV SCH (18:12)
--- NOTE | 2016-10-27 19:38 | PDOC CONSULTATION ---
Consultation Consult Date: 10/27/16 Attending physician:: DANA ANNA Consult reason:: I was asked by Dr. Anna to see this patient to supervise dialysis and dose antibiotics if needed during this hospitalization. History of Present Illness Admission Date/PCP: 10/25/16 17:41 BRIAN RODRIGUEZ MD History of Present Illness: Patient is a 76-year-old gentleman known to me with history of end- stage renal disease on maintenance hemodialysis, coronary artery disease, hypertension, hyperlipidemia who was sent to the emergency room last Sunday after dialysis because of acute onset of chills and fever. That day I saw the patient during dialysis with the above symptoms and patient could not really give much of a history at that day at that time. He seems to be a little confused during that day. So I told our dialysis nurse to send the patient to the emergency room after completing dialysis treatment last Sunday. We did get a set of blood cultures and all give the patient a dose of 1 g vancomycin intravenously and 80 mg of gentamicin intravenously prior to sending the patient to the emergency room. Upon admission patient was started on ceftriaxone intravenously. Patient had pancultures done as well here in the hospital. Patient's urine culture grew clamshell and Citrobacter sensitive to ceftriaxone. I saw the patient is morning at around 8:25 AM during dialysis treatment. Patient looked much better compared to 2 days ago. He is more awake and seems to bebaseline mental state. He said he feels a little bit better and could not recall what happened 2 days ago. Patient tolerated dialysis without any much problems complications. 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 Musculoskeltal Medical History: Reports: Gout, Other - Right hip fracture last August 2016 Infectious Medical History: Reports: Clostridium Difficile Hematology Medical History: Reports Anemia of Chronic Kidney Disease Past Surgical History Past Surgical History: Reports: Cardiac Catheterization, Coronary Artery Bypass Graft, Cystectomy, Dialysis Access Surgery AVF, Orthopedic Surgery - Right hip hemiarthroplasty August 2016, Vascular Surgery - AAA repair, Other - Nephrostomy tube placement, creation of ileal conduit, prostatectomy Social History Information Source: [facility] Records Lives with: Family Smoking Status: Former Smoker Frequency of Alcohol Use: None Hx Recreational Drug Use: No Drugs: None Hx Prescription Drug Abuse: No - Advance Directive Resuscitation Status: Do Not Resuscitate Family History Family History: Malignancy - Bone cancer on his father Parental Family History Reviewed: Yes Children Family History Reviewed: No Sibling(s) Family History Reviewed.: No Medication/Allergy Home Medications: Albuterol Sulfate [Proair HFA] 2 puff IH Q6HP PRN 08/28/16 Atorvastatin Calcium [Lipitor 20 mg Tablet] 20 mg PO QHS 08/28/16 B Complex & C No.20/Folic Acid [Nephrocaps Softgel] 1 mg PO QHS 08/28/16 Isosorbide Dinitrate [Isordil Titradose 20 mg Tablet] 20 mg PO Q12 08/28/16 L. Rhamnosus GG/Inulin [Culturelle Capsule] 1 each PO DAILY 08/28/16 Magnesium Oxide [Mag-Ox 400 mg Tablet] 400 mg PO DAILY 08/28/16 Omeprazole 20 mg PO DAILY 08/28/16 Sodium Bicarbonate [Sodium Bicarbonate 650 mg Tablet] 650 mg PO Q12 08/28/16 Aspirin [Ecotrin 81 mg EC Tablet] 81 mg PO DAILY #0 tabec 09/08/16 Doxycycline Hyclate [Vibramycin 100 mg Tablet] 100 mg PO Q12A #14 tablet Ferrous Sulfate [Feosol 325 mg Tablet] 325 mg PO DAILY #0 tablet 09/08/16 Guaifenesin [Mucinex Sr 600 mg Tablet.sa] 600 mg PO Q12 #0 tablet.sa 09/08/16 Ipratropium/Albuterol Sulfate [Duoneb 3 ml Ampul] 3 ml NEB RTQ6HP PRN #0 vial.neb 09/08/16 Sucralfate [Carafate Susp 1 gm/10 ml Udcup] 1 gm PO Q6 #0 udc 09/08/16 Allergies/Adverse Reactions: ciprofloxacin [From Cipro] Allergy (Verified 08/30/14 11:49) Review of Systems All systems: reviewed and no additional remarkable complaints except as stated Review of Systems: Constitutional: ABSENT: fatigue, headache(s), weight gain, weight loss; had fever and chills, feels tired Eyes: ABSENT: visual disturbances Ears: ABSENT: hearing changes Cardiovascular: ABSENT: chest pain, dyspnea on exertion, edema, orthropnea, palpitations Respiratory: ABSENT: cough, dyspnea, hemoptysis Gastrointestinal: ABSENT: abdominal pain, constipation, diarrhea, hematemesis, hematochezia, nausea, vomiting Genitourinary: ABSENT: dysuria, hematuria; foul-smelling urine from urostomy bag Musculoskeletal: ABSENT: joint swelling Integumentary: ABSENT: rash, wounds Neurological: ABSENT: abnormal gait, abnormal speech, confusion, dizziness, focal weakness, numbness, syncope Psychiatric: ABSENT: anxiety, depression Endocrine: ABSENT: cold intolerance, heat intolerance, polydipsia, polyuria Hematologic/Lymphatic: ABSENT: easy bleeding, easy bruising, lymphadenopathy Physical Exam Vital Signs: Temp Pulse Resp BP Pulse Ox 98.1 F 65 18 105/42 L 99 10/27/16 15:40 10/27/16 15:40 10/27/16 15:40 10/27/16 15:40 10/27/16 15:40 Intake & Output 10/26/16 10/27/16 10/28/16 06:59 06:59 06:59 Intake Total 180 1686 320 Output Total 217 097 1168 Balance -20 1236 -805 Weight 80.6 kg 80.9 kg Vital signs during dialysis when I saw him this morning: Blood pressure 156/58, heart rate of 68, blood flow rate of 400 mL per minute, dialysate flow rate of 600 mL per minute. Exam: General appearance: no acute distress, cooperative, well-developed, well- nourished Head exam: PRESENT: atraumatic, normocephalic Eye exam: PRESENT: Conjunctiva pale, EOMI, PERRLA. ABSENT: conjunctival injection, scleral icterus Mouth exam: PRESENT: moist, neck supple, tongue midline Neck exam: PRESENT: full ROM. ABSENT: carotid bruit, JVD, lymphadenopathy, thyromegaly Respiratory exam: PRESENT: Diminished but clear to auscultation bilaterally. ABSENT: rales, rhonchi, stridor, wheezes Cardiovascular exam: PRESENT: RRR, +S1, +S2. ABSENT: systolic murmur Pulses: PRESENT: normal radial pulses, normal dorsalis pedis pulses GI/Abdominal exam: PRESENT: normal bowel sounds, soft. Urostomy bag in place ABSENT: guarding, mass, tenderness Rectal exam: deferred Extremities exam: PRESENT: full ROM. ABSENT: calf tenderness, pedal edema Musculoskeletal: PRESENT: full ROM. ABSENT: deformity Neurological exam: PRESENT: alert, Awake, Oriented to person, Oriented to place , Oriented to time, reflexes normal, CN II-XII grossly intact. ABSENT: motor sensory deficit Psychiatric exam: PRESENT: appropriate affect, normal mood. ABSENT: homicidal ideation, suicidal ideation Skin exam: PRESENT: intact, dry, warm. ABSENT: rash Results Laboratory Results: 10/27/16 04:27 10/27/16 04:27 10/27/16 10/27/16 04:27 04:27 WBC 5.1 RBC 3.35 L Hgb 10.1 L Hct 30.2 L MCV 90 MCH 30.2 MCHC 33.6 RDW 15.7 H Plt Count 122 L Seg Neutrophils % 69.9 Lymphocytes % 19.6 Monocytes % 9.3 Eosinophils % 0.5 Basophils % 0.7 Absolute Neutrophils 3.6 Absolute Lymphocytes 1.0 Absolute Monocytes 0.5 Absolute Eosinophils 0.0 Absolute Basophils 0.0 Sodium 141.8 Potassium 4.3 Chloride 105 Carbon Dioxide 26 Anion Gap 11 BUN 33 H Creatinine 3.78 H Est GFR ( Amer) 19 L Est GFR (Non-Af Amer) 16 L Glucose 124 H Calcium 7.9 L Impressions: Chest X-Ray 10/25/16 00:00 IMPRESSION: NO ACUTE CARDIOPULMONARY PROCESS. NO SIGNIFICANT CHANGE FROM PRIOR STUDY. Renal Ultrasound 10/25/16 00:00 IMPRESSION: Chronic medical renal disease. Assessment & Plan - Diagnosis (1) End-stage renal disease on hemodialysis Is this a current diagnosis for this admission?: YesPlan: We did dialysis today for 3 hours, using the patient's AV fistula, with 2 potassium bath, blood flow rate of 450 mL per minute, dialysate flow rate of 600 mL per minute, ultrafiltration of 2 L, no heparin and no Procrit during dialysis. Patient tolerated the procedure. (2) Anemia in chronic kidney disease (CKD) Is this a current diagnosis for this admission?: YesPlan: Procrit as needed during dialysis. (3) UTI (urinary tract infection) Qualifiers: Urinary tract infection type: site unspecified Hematuria presence: with hematuria Qualified Code(s): N39.0 - Urinary tract infection, site not specified Is this a current diagnosis for this admission?: YesPlan: Due to Klebsiella and Citrobacter. Ceftriaxone is an adequate coverage at this time. No need for further vancomycin nor gentamicin at this time. (4) Hypertension Qualifiers: Hypertension type: essential hypertension Qualified Code(s): I10 - Essential (primary) hypertension Is this a current diagnosis for this admission?: YesPlan: Controlled. - Notes Notes: Thank you very much for this consultation and will follow the patient with you. - Time Time Spent: 50 to 70 Minutes
[2016-10-27] MEDS: FOLIC ACID/VITAMIN B COMP W-C CAPSULE PO SCH (22:14)
[2016-10-27] MEDS: ATORVASTATIN CALCIUM 20 MG TABLET PO SCH (22:14)
[2016-10-28 05:15] LABS: ABSOLUTE EOSINOPHILS # (AUTO) 0.1 10^3/uL (0.0-0.6); ABSOLUTE LYMPHOCYTES (AUTO) 1.2 10^3/uL (0.5-4.7); ABSOLUTE MONOCYTES (AUTO) 0.6 10^3/uL (0.1-1.4); BASOPHILS % (AUTO) 0.7 % (0-2); EOSINOPHILS % (AUTO) 1.8 % (0-6); HEMATOCRIT 30.9 % (37.9-51.0); HEMOGLOBIN 10.3 g/dL (13.5-17.0); LYMPHOCYTES % (AUTO) 24.1 % (13-45); MEAN CORPUSCULAR HEMOGLOBIN 29.9 pg (27.0-33.4); MEAN CORPUSCULAR HGB CONC 33.3 g/dL (32.0-36.0); MEAN CORPUSCULAR VOLUME 90 fl (80-97); MONOCYTES % (AUTO) 12.9 % (3-13); RED BLOOD COUNT 3.44 10^6/uL (4.35-5.55); RED CELL DISTRIBUTION WIDTH 15.6 % (11.5-14.0); SEGMENTED NEUTROPHILS % (AUTO) 60.5 % (42-78)
[2016-10-28] MEDS: LANSOPRAZOLE 15 MG TAB.RAP.DR PO SCH (05:26)
[2016-10-28 05:31] LABS: ANION GAP 11 (5-19); BLOOD UREA NITROGEN 25 mg/dL (7-20); CALCIUM 8.1 mg/dL (8.4-10.2); CARBON DIOXIDE 31 mmol/L (22-30); CHLORIDE 100 mmol/L (98-107); CREATININE RESULT 2.92 mg/dL (0.52-1.25); GLUCOSE 99 mg/dL (75-110); POTASSIUM 3.9 mmol/L (3.6-5.0); SODIUM 141.5 mmol/L (137-145)
[2016-10-28] MEDS: HEPARIN SOD (PORCINE) 5,000 UNIT/ML 1 ML SYRINGE SUBCUT SCH (05:31)
[2016-10-28 08:16] VITALS: BP 112/46
--- NOTE | 2016-10-28 13:25 | PDOC DISCHARGE SUMMARY ---
General - Admit/Disc Date/PCP Admission Date/Primary Care Provider: 10/25/16 17:41 BRIAN RODRIGUEZ MD Discharge Date: 10/28/16 - Discharge Diagnosis (1) Sepsis Is this a current diagnosis for this admission?: YesSummary: Secondary to urinary tract infection (2) UTI (urinary tract infection) Is this a current diagnosis for this admission?: YesSummary: Growing Klebsiella and Citrobacter from urine culture. (3) COPD (chronic obstructive pulmonary disease) Is this a current diagnosis for this admission?: Yes (4) Chronic kidney disease, stage IV (severe) Is this a current diagnosis for this admission?: Yes (5) Coronary artery disease Is this a current diagnosis for this admission?: Yes (6) Hypertension Is this a current diagnosis for this admission?: Yes (7) H/O endovascular stent graft for abdominal aortic aneurysm Is this a current diagnosis for this admission?: Yes (8) PVD (peripheral vascular disease) Is this a current diagnosis for this admission?: Yes (9) Do not resuscitate Is this a current diagnosis for this admission?: Yes - Additional Information Resuscitation Status: Do Not Resuscitate Discharge Diet: Cardiac Discharge Activity: Activity As Tolerated Home Medications: Albuterol Sulfate [Proair HFA] 2 puff IH Q6HP PRN 08/28/16 Atorvastatin Calcium [Lipitor 20 mg Tablet] 20 mg PO QHS 08/28/16 B Complex & C No.20/Folic Acid [Nephrocaps Softgel] 1 mg PO QHS 08/28/16 Isosorbide Dinitrate [Isordil Titradose 20 mg Tablet] 20 mg PO Q12 08/28/16 L. Rhamnosus GG/Inulin [Culturelle Capsule] 1 each PO DAILY 08/28/16 Magnesium Oxide [Mag-Ox 400 mg Tablet] 400 mg PO DAILY 08/28/16 Omeprazole 20 mg PO DAILY 08/28/16 Sodium Bicarbonate [Sodium Bicarbonate 650 mg Tablet] 650 mg PO Q12 08/28/16 Aspirin [Ecotrin 81 mg EC Tablet] 81 mg PO DAILY #0 tabec 09/08/16 Ferrous Sulfate [Feosol 325 mg Tablet] 325 mg PO DAILY #0 tablet 09/08/16 Guaifenesin [Mucinex Sr 600 mg Tablet.sa] 600 mg PO Q12 #0 tablet.sa 09/08/16 Ipratropium/Albuterol Sulfate [Duoneb 3 ml Ampul] 3 ml NEB RTQ6HP PRN #0 vial.neb 09/08/16 Sucralfate [Carafate Susp 1 gm/10 ml Udcup] 1 gm PO Q6 #0 udc 09/08/16 Levofloxacin [Levaquin 250 mg Tablet] 250 mg PO DAILY #11 tablet 10/28/16 History of Present Illness History of Present Illness: TYLOR JIMENEZ is a 76 year old male who has end-stage renal disease who has been on dialysis was brought to the emergency room after being noted to have a fever at dialysis. The patient was given IV vancomycin and IV gentamicin after completing dialysis. The patient also did have some confusion. The patient was noted have foul-smelling urine and his urostomy tube by his . Patient was admitted for sepsis from a urinary tract infection. Hospital Course Hospital Course: 76-year-old gentleman who is on chronic dialysis who presented with fever, hypotension and symptoms consistent with sepsis from a urinary tract infection. Patient had been given a one-time dose of vancomycin and gentamicin in dialysis as he finished up. Patient was admitted to the hospital and started on Rocephin. Urine cultures from his urostomy tube grew out Klebsiella and Citrobacter. Both of these were sensitive to Levaquin and he was discharged home on Levaquin. Patient had listed an allergy to Cipro however I discussed this with him and he was unaware of being allergic to any medications. The patient was seen by Dr. Mccallum of nephrology while here and did undergo dialysis without difficulties. The rest of his medical problems were stable while hospitalized. Physical Exam Vital Signs: Temp Pulse Resp BP Pulse Ox 99.3 F 76 16 112/46 L 90 L 10/28/16 08:59 10/28/16 08:59 10/28/16 08:59 10/28/16 08:59 10/28/16 08:59 Intake & Output 10/27/16 10/28/16 10/29/16 06:59 06:59 06:59 Intake Total 1686 684 Output Total 450 1228 Balance 1236 -544 Weight 80.9 kg 80.8 kg General appearance: PRESENT: no acute distress Eye exam: PRESENT: conjunctiva pink. ABSENT: scleral icterus Neck exam: ABSENT: JVD Respiratory exam: PRESENT: clear to auscultation jenni. ABSENT: rales, rhonchi, wheezes Cardiovascular exam: PRESENT: RRR. ABSENT: diastolic murmur, rubs, systolic murmur GI/Abdominal exam: PRESENT: normal bowel sounds, soft. ABSENT: distended, guarding, mass, organolmegaly, rebound, tenderness Extremities exam: ABSENT: calf tenderness, clubbing, pedal edema Neurological exam: PRESENT: alert, awake, oriented to person, oriented to place , oriented to time, oriented to situation, CN II-XII grossly intact. ABSENT: motor sensory deficit Psychiatric exam: PRESENT: appropriate affect Results Laboratory Results: 10/28/16 04:45 10/28/16 04:45 10/28/16 10/28/16 04:45 04:45 WBC 5.0 RBC 3.44 L Hgb 10.3 L Hct 30.9 L MCV 90 MCH 29.9 MCHC 33.3 RDW 15.6 H Plt Count 113 L Seg Neutrophils % 60.5 Lymphocytes % 24.1 Monocytes % 12.9 Eosinophils % 1.8 Basophils % 0.7 Absolute Neutrophils 3.0 Absolute Lymphocytes 1.2 Absolute Monocytes 0.6 Absolute Eosinophils 0.1 Absolute Basophils 0.0 Sodium 141.5 Potassium 3.9 Chloride 100 Carbon Dioxide 31 H Anion Gap 11 BUN 25 H Creatinine 2.92 H Est GFR ( Amer) 26 L Est GFR (Non-Af Amer) 21 L Glucose 99 Calcium 8.1 L Impressions: Chest X-Ray 10/25/16 00:00 IMPRESSION: NO ACUTE CARDIOPULMONARY PROCESS. NO SIGNIFICANT CHANGE FROM PRIOR STUDY. Renal Ultrasound 10/25/16 00:00 IMPRESSION: Chronic medical renal disease. Qualifiers PATEINT BEING DISCHARGED WITH ANY OF THE FOLLOWING DIAGNOSIS?: No Plan Discharge Plan: Patient is discharged home in stable condition and will follow-up with his primary care doctor in 2 weeks. He will keep his usual scheduled dialysis appointments. Time Spent: Greater than 30 Minutes
== END 2016-10-28 10:43 | disposition home or self-care (01) | DRG 871 ==
LOC: ER 15:44 → EH 17:41 → UNDOADMIN 18:30 → EH 18:30 → 3S 10-26 03:21
PROVIDERS: ADMIT Family Medicine; ATTEND Family Medicine
PROC: 5A1D00Z (ICD-10-PCS; principal; 2016-10-27)
DX: A41.9 Sepsis, unspecified organism (principal); N18.6 End stage renal disease; N39.0 Urinary tract infection, site not specified; I13.2 Hypertensive heart and chronic kidney disease with heart failure and with stage 5 chronic kidney disease, or end stage renal disease; Z66 Do not resuscitate; B96.1 Klebsiella pneumoniae [K. pneumoniae] as the cause of diseases classified elsewhere; B96.89 Other specified bacterial agents as the cause of diseases classified elsewhere; D63.1 Anemia in chronic kidney disease; R31.9 Hematuria, unspecified; I50.9 Heart failure, unspecified; I25.10 Atherosclerotic heart disease of native coronary artery without angina pectoris; E78.5 Hyperlipidemia, unspecified; I73.9 Peripheral vascular disease, unspecified; J44.9 Chronic obstructive pulmonary disease, unspecified; Z99.2 Dependence on renal dialysis; Z88.1 Allergy status to other antibiotic agents; Z79.82 Long term (current) use of aspirin; Z79.51 Long term (current) use of inhaled steroids; Z79.899 Other long term (current) drug therapy
CPT/HCPCS: 36415; 71010; 76775; 80048; 80053; 81001; 82550; 82553; 82803; 83605; 84484; 85025; 85610; 87040; 87086; 87088; 87186; 93005; 93010; 96360; 99291; J0696; J1170; J1644; J3490; J7030

== ENCOUNTER 2016-11-06 00:32 | Emergency (ER) | payer MEDICARE ==
--- NOTE | 2016-11-06 00:48 | ER Document Report ---
ED Respiratory Problem - General Chief Complaint: Shortness Of Breath Stated Complaint: DIFFICULTY BREATHING Notes: The patient is a 76-year-old male, past medical history ESRD (MWF), CHF, hypertension, urostomy from bladder cancer 20 years ago, COPD, former smoker, presents with 1 hour of mild wheezing and feeling short of breath. He was admitted to the hospital for a UTI causing sepsis and discharged home on Levaquin 3 days ago. He denies coughing, fevers, chest pain, leg swelling, hemoptysis, nausea, vomiting, back pain, numbness, tingling or abdominal pain. TRAVEL OUTSIDE OF THE [place] IN LAST 30 DAYS: No - Related Data Allergies/Adverse Reactions: ciprofloxacin [From Cipro] Allergy (Verified 08/30/14 11:49) Past Medical History - General Information source: Patient - Social History Smoking Status: Former Smoker - Stopped 5 years ago Family History: Malignancy - Past Medical History Cardiac Medical History: Reports: Hx Congestive Heart Failure, Hx Coronary Artery Disease, Hx Hypercholesterolemia, Hx Hypertension, Hx Peripheral Vascular Disease Pulmonary Medical History: Reports: Hx COPD - Possible Neurological Medical History: Denies: Hx Seizures Renal/ Medical History: Reports: Hx End Stage Renal Disease - On hemodialysis Sunday and Sunday. Denies: Hx Peritoneal Dialysis Malignancy Medical History: Reports Hx Renal (Kidney) Cancer Musculoskeltal Medical History: Reports Hx Gout Psychiatric Medical History: Denies: Hx Depression Infectious Medical History: Reports: Hx C-Diff Past Surgical History: Reports: Hx Cardiac Catheterization, Hx Cardiac Surgery - CABG, Hx Coronary Artery Bypass Graft, Hx Genitourinary Surgery - urostomy, Hx Orthopedic Surgery - Right hip hemiarthroplasty August 2016, Hx Vascular Surgery - AAA repair, Other - Nephrostomy tube placement, creation of ileal conduit, prostatectomy - Immunizations Immunizations up to date: Yes Hx Diphtheria, Pertussis, Tetanus Vaccination: Yes Hx Pneumococcal Vaccination: 04/17/14 Review of Systems - Review of Systems Notes: REVIEW OF SYSTEMS: CONSTITUTIONAL: -fevers, -chills EENT: -eye pain, -difficulty swallowing, -nasal congestion CARDIOVASCULAR:-chest pain, -syncope. RESPIRATORY: -cough, +SOB GASTROINTESTINAL: -abdominal pain, - nausea, -vomiting, -diarrhea GENITOURINARY: -dysuria, -hematuria MUSCULOSKELETAL: -back pain, -neck pain SKIN: -rash or skin lesions. HEMATOLOGIC: -easy bruising or bleeding. LYMPHATIC: -swollen, enlarged glands. NEUROLOGICAL: -altered mental status or loss of consciousness, -headache, - neurologic symptoms PSYCHIATRIC: -anxiety, -depression. ALL OTHER SYSTEMS REVIEWED AND NEGATIVE. Physical Exam - Vital signs Vitals: Pulse Ox 94 11/06/16 00:56 - Notes Notes: PHYSICAL EXAMINATION: GENERAL: Well-appearing, well-nourished and in no acute distress. HEAD: Atraumatic, normocephalic. EYES: Pupils equal round and reactive to light, extraocular movements intact, sclera anicteric, conjunctiva are normal. ENT: nares patent, oropharynx clear without exudates. Moist mucous membranes. NECK: Normal range of motion, supple without lymphadenopathy LUNGS: Breath sounds clear to auscultation bilaterally and equal. Faint end- expiratory wheeze. No respiratory distress. HEART: Regular rate and rhythm without murmurs ABDOMEN: Soft, nontender, normoactive bowel sounds. Urostomy bag in right lower quadrant with yellow urine. No guarding, no rebound. No masses appreciated. EXTREMITIES: Normal range of motion, no pitting or edema. No cyanosis. NEUROLOGICAL: Cranial nerves grossly intact. Normal speech, normal gait. Normal sensory, motor, and reflex exams. PSYCH: Normal mood, normal affect. SKIN: Warm, Dry, normal turgor, no rashes or lesions noted. Course - Re-evaluation Re-evalutation: Patient appears in no respiratory distress. His oxygenation on room air is 95% . After DuoNeb, patient's faint wheeze resolved and he states that he is feeling much better. Considered PE, but less likely at this time due to no tachypnea or tachycardia. CXR is clear. He does not appear to be fluid overloaded and his next dialysis treatment is in 8 hours. Will refill his albuterol. Given strict return precautions and he understands. - Vital Signs Vital signs: Temp Pulse Resp BP Pulse Ox 98 F 76 14 116/59 L 95 11/06/16 01:02 11/06/16 01:02 11/06/16 02:01 11/06/16 02:01 11/06/16 02:01 - Laboratory Result Diagrams: 11/06/16 01:25 11/06/16 01:25 Laboratory results interpreted by me: 11/06/16 11/06/1617 01:25 01:25 01:25 RBC 3.66 L Hgb 11.0 L Hct 33.7 L RDW 16.8 H ABG pO2 ABG Total CO2 ABG O2 Saturation Sodium 147.1 H BUN 48 H Creatinine 4.22 H Est GFR ( Amer) 17 L Est GFR (Non-Af Amer) 14 L Glucose 112 H Creatine Kinase 46 L NT-Pro-B Natriuret Pep 4720 H Lipase 396.6 H 11/06/16 01:25 RBC Hgb Hct RDW ABG pO2 58.2 L ABG Total CO2 27.1 H ABG O2 Saturation 90.3 L Sodium BUN Creatinine Est GFR ( Amer) Est GFR (Non-Af Amer) Glucose Creatine Kinase NT-Pro-B Natriuret Pep Lipase - Diagnostic Test Radiology reviewed: Image reviewed, Reports reviewed Radiology results interpreted by me: CXR: NAD - EKG Interpretation by Me EKG shows normal: Sinus rhythm, [place], Intervals, QRS Complexes, ST-T Waves When compared to previous EKG there are: No significant change Discharge - Discharge Clinical Impression: Wheezing Condition: Good Disposition: HOME, SELF-CARE Additional Instructions: Use your albuterol inhaler every 4 hours as needed to help with any wheezing or shortness of breath. If you have any worsening symptoms, return immediately to the emergency room. SHORTNESS OF BREATH OR DYSPNEA: You were evaluated for shortness of breath, or dyspnea. Dyspnea has many causes, and some are more serious than others. Sometimes it's impossible to diagnose the cause of dyspnea with the tests that are available on an emergency basis. Based on our evaluation today, you do not need hospitalization now. We found no evidence of pneumonia, collapsed lung, blood clots in the lung, tumors , or heart failure. Causes of non-specific dyspnea can include asthma or bronchospasm, hyperventilation, emotional distress, heart disease, emphysema, fibrosis of the lung, and stiffness of the chest wall. In healthy individuals with a single episode, it's sometimes reasonable to do nothing but wait to see if the problem occurs again. Additional tests used to evaluate dyspnea can include cardiac stress testing, echocardiography, pulmonary function testing, CAT scan of the chest, bronchoscopy or pulmonary biopsy. Return if shortness of breath persists or worsens, or if you develop chest pain, fever, cough, confusion, or fainting. NORMAL EXAM AND WORKUP: At this time, your examination and workup show no significant abnormality. No significant abnormal physical findings were noted. All laboratory, EKG, and imaging (x-ray, CT scans, ultrasound) studies that were ordered show no significant abnormality. Although your examination and all studies that were ordered showed no significant abnormal finding, there are no examinations and no studies that are 100% accurate. There is always the possibility that some abnormality could exist and not be detected with physical examination or within the limits and capabilities of laboratory and other studies. You should return or follow up as you were instructed on your visit today for further evaluation if your symptoms do not resolve. FOLLOW-UP CARE: If you have been referred to a physician for follow-up care, call the physician s office for an appointment as you were instructed or within the next two days. If you experience worsening or a significant change in your symptoms, notify the physician immediately or return to the Emergency Department at any time for re-evaluation. Prescriptions: Albuterol Sulfate [Proair HFA Inhalation Aerosol 8.5 gm MDI] 2 puff IH Q4H PRN # 1 mdi PRN Reason:
[2016-11-06] MEDS ORDERED: IPRATROPIUM/ALBUTEROL 0.5-2.5 MG/3 ML AMPUL NEB ONE (00:54)
[2016-11-06 01:54] LABS: ARTERIAL BLOOD BASE EXCESS 0.9 mmol/L; ARTERIAL BLOOD O2 SATURATION 90.3 % (94-98)
[2016-11-06 01:55] LABS: ABSOLUTE EOSINOPHILS # (AUTO) 0.2 10^3/uL (0.0-0.6); ABSOLUTE LYMPHOCYTES (AUTO) 1.3 10^3/uL (0.5-4.7); ABSOLUTE MONOCYTES (AUTO) 0.6 10^3/uL (0.1-1.4); BASOPHILS % (AUTO) 0.5 % (0-2); EOSINOPHILS % (AUTO) 2.1 % (0-6); HEMATOCRIT 33.7 % (37.9-51.0); HGB HCT DIFFERENCE -0.7; LYMPHOCYTES % (AUTO) 16.6 % (13-45); MEAN CORPUSCULAR HEMOGLOBIN 30.1 pg (27.0-33.4); MEAN CORPUSCULAR HGB CONC 32.8 g/dL (32.0-36.0); MEAN CORPUSCULAR VOLUME 92 fl (80-97); MONOCYTES % (AUTO) 6.9 % (3-13); RED BLOOD COUNT 3.66 10^6/uL (4.35-5.55); RED CELL DISTRIBUTION WIDTH 16.8 % (11.5-14.0); SEGMENTED NEUTROPHILS % (AUTO) 73.9 % (42-78); WHITE BLOOD COUNT 8.1 10^3/uL (4.0-10.5)
[2016-11-06 02:15] LABS: ALANINE AMINOTRANSFERASE 42 U/L (21-72); ALBUMIN 3.8 g/dL (3.5-5.0); ALKALINE PHOSPHATASE 87 U/L (38-126); ANION GAP 17 (5-19); ASPARTATE AMINO TRANSFERASE 32 U/L (17-59); BILIRUBIN,DIRECT 0.3 mg/dL (0.0-0.4); BILIRUBIN,TOTAL 0.5 mg/dL (0.2-1.3); BLOOD UREA NITROGEN 48 mg/dL (7-20); CALCIUM 8.7 mg/dL (8.4-10.2); CARBON DIOXIDE 23 mmol/L (22-30); CHLORIDE 107 mmol/L (98-107); CREATINE KINASE 46 U/L (55-170); CREATININE RESULT 4.22 mg/dL (0.52-1.25); GLUCOSE 112 mg/dL (75-110); LIPASE 396.6 U/L (23-300); SODIUM 147.1 mmol/L (137-145)
[2016-11-06 02:28] LABS: TROPONIN I 0.024 ng/mL
[2016-11-06 03:00] VITALS: BP 125/50
--- NOTE | 2016-11-06 10:42 | EKG REPORT ---
SEVERITY:- ABNORMAL ECG - SINUS RHYTHM NONSPECIFIC T ABNORMALITIES, INFERIOR LEADS : Confirmed by: Jessica Oreilly 06-Nov-2016 10:41:09
== END 2016-11-06 03:00 | disposition home or self-care (01) ==
LOC: ER 00:32
DX: R06.2 Wheezing (principal); R06.02 Shortness of breath; R06.00 Dyspnea, unspecified; I13.2 Hypertensive heart and chronic kidney disease with heart failure and with stage 5 chronic kidney disease, or end stage renal disease; N18.6 End stage renal disease; I50.9 Heart failure, unspecified; I25.10 Atherosclerotic heart disease of native coronary artery without angina pectoris; E78.00 Pure hypercholesterolemia, unspecified; Z99.2 Dependence on renal dialysis; Z88.3 Allergy status to other anti-infective agents; Z85.528 Personal history of other malignant neoplasm of kidney; Z95.1 Presence of aortocoronary bypass graft; Z93.6 Other artificial openings of urinary tract status; Z87.891 Personal history of nicotine dependence
CPT/HCPCS: 93005; 94640; 99285; 36415; 87040; 82803; 82550; 83690; 85025; 80076; 80048; 84484; 83605; 83880; 71010; 93010; A9270; J7620

== ENCOUNTER 2017-04-18 15:15 | Inpatient (IN) | payer OTHER, MEDICARE ==
--- NOTE | 2017-04-18 15:22 | ER Document Report ---
ED Medical Screen (RME) - General Chief Complaint: Altered Mental Status Stated Complaint: ALTERED MENTAL STATUS Time Seen by Provider: 04/18/17 15:17 Mode of Arrival: Wheelchair Information source: Relative TRAVEL OUTSIDE OF THE [place] IN LAST 30 DAYS: No - HPI Patient complains to provider of: Nonverbal, altered mental status Notes: 04/18/17 15:21 Patient is a 76-year-old male brought to the emergency room by daughter for change in mental status, states she dropped him off for dialysis this morning and he walked in with his cane, he was acting appropriately, when she picked him up he had to be wheeled out in a wheelchair and he is no longer speaking to her, he is normally verbal alert and oriented - Related Data Allergies/Adverse Reactions: ciprofloxacin [From Cipro] Allergy (Verified 04/18/17 15:19) Past Medical History - Past Medical History Cardiac Medical History: Reports: Hx Congestive Heart Failure, Hx Coronary Artery Disease, Hx Hypercholesterolemia, Hx Hypertension, Hx Peripheral Vascular Disease Pulmonary Medical History: Reports: Hx COPD - Possible Neurological Medical History: Denies: Hx Seizures Renal/ Medical History: Reports: Hx End Stage Renal Disease - On hemodialysis Sunday and Sunday. Denies: Hx Peritoneal Dialysis Malignancy Medical History: Reports Hx Renal (Kidney) Cancer Musculoskeltal Medical History: Reports Hx Gout Psychiatric Medical History: Denies: Hx Depression Infectious Medical History: Reports: Hx C-Diff Past Surgical History: Reports: Hx Cardiac Catheterization, Hx Cardiac Surgery - CABG, Hx Coronary Artery Bypass Graft, Hx Genitourinary Surgery - urostomy, Hx Orthopedic Surgery - Right hip hemiarthroplasty August 2016, Hx Vascular Surgery - AAA repair, Other - Nephrostomy tube placement, creation of ileal conduit, prostatectomy - Immunizations Immunizations up to date: Yes Hx Diphtheria, Pertussis, Tetanus Vaccination: Yes Physical Exam - Vital signs Vitals: Temp Pulse Resp BP Pulse Ox 98.4 F 103 H 20 103/57 L 94 04/18/17 15:16 04/18/17 15:16 04/18/17 15:16 04/18/17 15:16 04/18/17 15:16 Course - Vital Signs Vital signs: Temp Pulse Resp BP Pulse Ox 98.4 F 103 H 20 103/57 L 94 04/18/17 15:16 04/18/17 15:16 04/18/17 15:16 04/18/17 15:16 04/18/17 15:16
--- NOTE | 2017-04-18 15:34 | ER Document Report ---
ED General - General Chief Complaint: Altered Mental Status Stated Complaint: ALTERED MENTAL STATUS Time Seen by Provider: 04/18/17 15:17 Mode of Arrival: Wheelchair Information source: Patient TRAVEL OUTSIDE OF THE [place] IN LAST 30 DAYS: No - HPI Onset: This morning - @ DIALYSIS CLINIC, SOMETIME AFTER 10 AM, UNABLE TO PINPOINT EXACT TIME. Quality of pain: No pain - DENIES Associated symptoms: Weakness, Other - CONFUSION. denies: Chest pain, Chills, Fever, Vomiting Similar symptoms previously: No Recently seen / treated by doctor: Yes - DIALYSIS CLINIC, TODAY. Notes: Patient's daughter says he normally ambulates well with the aid of a cane, but when she picked him up from dialysis he was unable to ambulate, was wheeled out to vehicle in a wheelchair and required assistance to transfer from chair to vehicle. Daughter brought the patient directly to the emergency department. He was also noted to be somewhat confused at times. - Related Data Allergies/Adverse Reactions: ciprofloxacin [From Cipro] Allergy (Verified 04/18/17 15:19) Past Medical History - General Information source: Relative - Social History Smoking Status: Unknown if Ever Smoked Cigarette use (# per day): No Chew tobacco use (# tins/day): No Frequency of alcohol use: None Drug Abuse: None Lives with: Family Family History: Malignancy Patient has suicidal ideation: No Patient has homicidal ideation: No - Past Medical History Cardiac Medical History: Reports: Hx Congestive Heart Failure, Hx Coronary Artery Disease, Hx Hypercholesterolemia, Hx Hypertension, Hx Peripheral Vascular Disease Pulmonary Medical History: Reports: Hx COPD - Possible Neurological Medical History: Denies: Hx Cerebrovascular Accident, Hx Seizures Endocrine Medical History: Reports: None Renal/ Medical History: Reports: Hx End Stage Renal Disease - On hemodialysis Sunday and Sunday. Denies: Hx Peritoneal Dialysis Malignancy Medical History: Reports Hx Renal (Kidney) Cancer GI Medical History: Reports: None Musculoskeltal Medical History: Reports Hx Gout Psychiatric Medical History: Reports: None Denies: Hx Depression Infectious Medical History: Reports: Hx C-Diff Past Surgical History: Reports: Hx Cardiac Catheterization, Hx Cardiac Surgery - CABG, Hx Coronary Artery Bypass Graft, Hx Genitourinary Surgery - urostomy, Hx Orthopedic Surgery - Right hip hemiarthroplasty August 2016, Hx Vascular Surgery - AAA repair, Other - Nephrostomy tube placement, creation of ileal conduit, prostatectomy - Immunizations Immunizations up to date: Yes Hx Diphtheria, Pertussis, Tetanus Vaccination: Yes Hx Pneumococcal Vaccination: 04/17/14 Review of Systems - Review of Systems Constitutional: Weakness. denies: Chills, Fever EENT: No symptoms reported Cardiovascular: No symptoms reported. denies: Chest pain, Dyspnea, Syncope Respiratory: No symptoms reported Gastrointestinal: No symptoms reported Genitourinary: No symptoms reported Musculoskeletal: No symptoms reported Skin: No symptoms reported Neurological/Psychological: See HPI Physical Exam - Vital signs Vitals: Temp Pulse Resp BP Pulse Ox 98.4 F 103 H 20 103/57 L 94 04/18/17 15:16 04/18/17 15:16 04/18/17 15:16 04/18/17 15:16 04/18/17 15:16 Interpretation: Hypotensive, Tachycardic. No: Tachypneic, Febrile - General General appearance: Appears well, Alert In distress: None - HEENT Head: Normocephalic Eyes: Normal Conjunctiva: Normal Ears: Normal Nasal: Normal Mouth/Lips: Normal, Other - POOR DENTITION Mucous membranes: Normal Pharynx: Normal Neck: Normal - Respiratory Respiratory status: No respiratory distress Breath sounds: Wheezing - MILD EXPIRATORY, ALL LOBES - Cardiovascular Rhythm: Regular Heart sounds: Normal auscultation Murmur: No - Abdominal Inspection: Normal Distension: No distension - Extremities General upper extremity: Normal inspection General lower extremity: Normal inspection - Neurological Neuro grossly intact: No Cognition: Confused - INTERMITTENTLY Orientation: Disoriented to time, Disoriented to events Marta Coma Scale Eye Opening: Spontaneous [place] Coma Scale Verbal: Confused Marta Coma Scale Motor: Obeys Commands Nazlini Coma Scale Total: 14 Speech: Normal Cranial nerves: Normal. No: Facial palsy, Gaze palsy, Sensory deficit, Tongue deviation Cerebellar coordination: No: Finger-nose rhombey Motor strength normal: LUE, RUE, RLE. No: LLE Additional motor exam normals: Equal vice president medical affairs Sensory: Normal - Psychological Associated symptoms: Confused - Skin Skin Temperature: Warm Skin Moisture: Dry Skin Color: Normal Skin Turgor: Elastic Course - Vital Signs Vital signs: Temp Pulse Resp BP Pulse Ox 100.0 F 63 14 131/60 H 98 04/18/17 18:42 04/18/17 21:00 04/18/17 23:16 04/18/17 23:16 04/18/17 23:16 - Laboratory Result Diagrams: 04/18/17 15:55 04/18/17 15:55 Laboratory results interpreted by me: 04/18/17 04/18/17 04/18/17 15:55 15:55 16:53 RBC 3.99 L Hgb 13.1 L Hct 37.5 L Plt Count 148 L Seg Neutrophils % 82.8 H Lymphocytes % 9.1 L VBG pH Chloride 96 L Creatinine 2.38 H Est GFR ( Amer) 32 L Est GFR (Non-Af Amer) 27 L Glucose 159 H POC Glucose 134 H Direct Bilirubin 0.6 H Total Protein 8.4 H Urine Protein Urine Blood Urine Urobilinogen Ur Leukocyte Esterase 04/18/17 04/18/17 17:28 17:40 RBC Hgb Hct Plt Count Seg Neutrophils % Lymphocytes % VBG pH 7.44 H Chloride Creatinine Est GFR ( Amer) Est GFR (Non-Af Amer) Glucose POC Glucose Direct Bilirubin Total Protein Urine Protein 100 H Urine Blood SMALL H Urine Urobilinogen 2.0 H Ur Leukocyte Esterase LARGE H - EKG Interpretation by Me EKG shows normal: Sinus rhythm, [place], Intervals, QRS Complexes, ST-T Waves Rate: Normal Rhythm: NSR - Consults DR. TOUSSAINT Time consulted: 18:52 Reason for consultation: 04/18/17 18:58 ASK HOSPITALIST TO ADMIT, DR. TOUSSAINT WILL CONSULT. Consulted provider: will see as inpatient DR. DANIELSON Time consulted: 23:18 Reason for consultation: 04/18/17 23:33 AGREES TO ADMIT Consulted provider: will come to ER Critical Care Note - Critical Care Note Total time excluding time spent on procedures (mins): 60 Comments: SEVERE INFECTION, SEPSIS, HYPOTENSION REQUIRING AGGRESSIVE RESUSCITATION. Discharge - Discharge Clinical Impression: End-stage renal disease on hemodialysis, Chronic kidney disease, stage IV ( severe) Urinary tract infection Qualifiers: Urinary tract infection type: acute pyelonephritis Qualified Code(s): N10 - Acute pyelonephritis Sepsis Qualifiers: Sepsis type: sepsis due to unspecified organism Qualified Code(s): A41.9 - Sepsis, unspecified organism Condition: Serious Disposition: ADMITTED INPATIENT Admitting Provider: Hospitalist Unit Admitted: ICU Referrals: BRIAN RODRIGUEZ MD [Primary Care Provider] - Follow up as needed
--- NOTE | 2017-04-18 15:41 | RADIOLOGY REPORT (SQ) ---
EXAM DESCRIPTION: CT HEAD WITHOUT COMPLETED DATE/TIME: 04/18/2017 3:27 pm REASON FOR STUDY: AMS COMPARISON: None. TECHNIQUE: Axial images acquired through the brain without intravenous contrast. Images reviewed wi th bone, brain and subdural windows. Images stored on PACS. All CT scanners at this facility use dose modulation, iterative reconstruction, and/or weight based d osing when appropriate to reduce radiation dose to as low as reasonably achievable (ALARA). [facility]: Dose Right [facility]: CareDose [facility]: Dose Right [facility]: Teradose 4D [facility]: Smart Uploadcare RADIATION DOSE: Up-to-date CT equipment and radiation dose reduction techniques were employed. CTDIv ol: 28.0 mGy. DLP: 1120 mGy-cm. mGy. LIMITATIONS: Mild-moderate motion limiting. Despite repeat scanning. FINDINGS: VENTRICLES: Age-appropriate. CEREBRUM: No masses. No hemorrhage. No midline shift. No evidence for acute infarction. Normal gra y/white matter differentiation. No areas of low density in the white matter. CEREBELLUM: No masses. No hemorrhage. No alteration of density. No evidence for acute infarction. EXTRAAXIAL SPACES: No fluid collections. No masses. ORBITS AND GLOBE: No intra- or extraconal masses. Normal contour of globe without masses. CALVARIUM: No fracture. PARANASAL SINUSES: No fluid levels. Mild mucosal thickening in the left maxillary sinus. SOFT TISSUES: No mass or hematoma. OTHER: No other significant finding. IMPRESSION: Limited study as above due to motion. No acute abnormality suggested, however. EVIDENCE OF ACUTE STROKE: NO. Pertinent findings on the imaging study reported as a CRITICAL RESULT to Dr. Lion at15:34 on 2016. Category of Critical Result: Stroke alert COMMENT: Quality ID # [id number]: Final reports with documentation of one or more dose reduction techniques (e.g., Automated exposure control, adjustment of the mA and/or kV according to patient size, use of iterative reconstruction technique) TECHNICAL DOCUMENTATION: JOB ID: [id number]- All Rights Reserved
--- NOTE | 2017-04-18 15:51 | RADIOLOGY REPORT (SQ) ---
EXAM DESCRIPTION: CHEST PA/LAT COMPLETED DATE/TIME: 04/18/2017 3:36 pm REASON FOR STUDY: cough COMPARISON: 11/06/2016 EXAM PARAMETERS: NUMBER OF VIEWS: two views TECHNIQUE: Digital Frontal and Lateral radiographic views of the chest acquired. RADIATION DOSE: NA LIMITATIONS: none FINDINGS: LUNGS AND PLEURA: There is rounded opacification behind the left heart on the PA view. Th is is not appreciated on the lateral view. No infiltrate or effusion is seen. MEDIASTINUM AND HILAR STRUCTURES: Possible hiatal hernia. HEART AND VASCULAR STRUCTURES: Heart normal size. No evidence for failure. BONES: No acute findings. HARDWARE: Sternotomy wires. OTHER: No other significant finding. IMPRESSION: Rounded opacification in the medial left base. Likely hiatal hernia. Stable. TECHNICAL DOCUMENTATION: JOB ID: [id number] [employer]- All Rights Reserved
[2017-04-18 16:37] LABS: ABSOLUTE LYMPHOCYTES (AUTO) 0.9 10^3/uL (0.5-4.7); ABSOLUTE MONOCYTES (AUTO) 0.7 10^3/uL (0.1-1.4); ABSOLUTE NEUT (AUTO) 7.8 10^3/uL (1.7-8.2); BASOPHILS % (AUTO) 0.5 % (0-2); EOSINOPHILS % (AUTO) 0.2 % (0-6); HEMATOCRIT 37.5 % (37.9-51.0); HEMOGLOBIN 13.1 g/dL (13.5-17.0); HGB HCT DIFFERENCE 1.8; LYMPHOCYTES % (AUTO) 9.1 % (13-45); MEAN CORPUSCULAR HEMOGLOBIN 32.9 pg (27.0-33.4); MEAN CORPUSCULAR VOLUME 94 fl (80-97); MONOCYTES % (AUTO) 7.4 % (3-13); RED BLOOD COUNT 3.99 10^6/uL (4.35-5.55); RED CELL DISTRIBUTION WIDTH 13.7 % (11.5-14.0); SEGMENTED NEUTROPHILS % (AUTO) 82.8 % (42-78); WHITE BLOOD COUNT 9.4 10^3/uL (4.0-10.5)
[2017-04-18 16:45] LABS: PROTHROMBIN TIME 13.3 SEC (11.4-15.4)
[2017-04-18 16:58] LABS: ALANINE AMINOTRANSFERASE 23 U/L (21-72); ALBUMIN 4.4 g/dL (3.5-5.0); ALKALINE PHOSPHATASE 100 U/L (38-126); ANION GAP 12 (5-19); ASPARTATE AMINO TRANSFERASE 21 U/L (17-59); BILIRUBIN,DIRECT 0.6 mg/dL (0.0-0.4); BLOOD UREA NITROGEN 15 mg/dL (7-20); CALCIUM 9.6 mg/dL (8.4-10.2); CARBON DIOXIDE 30 mmol/L (22-30); CHLORIDE 96 mmol/L (98-107); CREATININE RESULT 2.38 mg/dL (0.52-1.25); GLUCOSE 159 mg/dL (75-110); POTASSIUM 4.4 mmol/L (3.6-5.0); SODIUM 138.3 mmol/L (137-145); TOTAL PROTEIN 8.4 g/dL (6.3-8.2)
[2017-04-18] MEDS ORDERED: ACETAMINOPHEN 325 MG TABLET PO ONE (17:24)
[2017-04-18] MEDS ORDERED: CEFTRIAXONE 1 GM/D5W RTU 1 GM/50 ML RTUPB IV ONE (17:30)
[2017-04-18 17:56] LABS: VENOUS BLOOD BASE EXCESS 6.2 mmol/L; VENOUS BLOOD HCO3 31.3 mmol/L (20-32); VENOUS BLOOD PCO2 46.7 mmHg (35-63); VENOUS BLOOD PH 7.44 (7.30-7.42)
[2017-04-18 18:05] LABS: AMORPHOUS SEDIMENT,URINE TRACE /HPF; APPEARANCE,URINE CLOUDY; BILIRUBIN,URINE NEGATIVE (NEGATIVE); GLUCOSE, URINE NEGATIVE (NEGATIVE); KETONES,URINE NEGATIVE (NEGATIVE); LEUKOCYTE ESTERASE,URINE LARGE (NEGATIVE); NITRITE,URINE NEGATIVE (NEGATIVE); PROTEIN,URINE 100 mg/dL (NEGATIVE); URINE SPECIFIC GRAVITY 1.011
[2017-04-18] MEDS ORDERED: NORMAL SALINE 1000 ML 300 ML IV ONE (18:15)
[2017-04-18] MEDS ORDERED: NORMAL SALINE 1000 ML 1,000 ML IV ONE (18:45)
[2017-04-18] MEDS ORDERED: NORMAL SALINE 1000 ML 700 ML IV ONE (18:46)
[2017-04-18] MEDS ORDERED: DEXTROSE 5%-WATER 250 ML with NOREPINEPHRINE BITARTRATE 4 MG IV PRN ×2 (20:19)
[2017-04-18] MEDS ORDERED: NOREPINEPHRINE BITARTRATE INJ/PF 4 MG/4 ML SDV IV ONE (20:45)
[2017-04-18] MEDS ORDERED: AZITHROMYCIN INJ 500 MG VIAL IV ONE (23:34)
[2017-04-19] MEDS ORDERED: DEXTROSE 5%-WATER 250 ML with NOREPINEPHRINE BITARTRATE 4 MG IV PRN ×2 (03:45)
[2017-04-19] MEDS ORDERED: NORMAL SALINE 1000 ML 1,000 ML IV PRN ×3 (03:45→17:34)
[2017-04-19] MEDS ORDERED: IPRATROPIUM/ALBUTEROL 0.5-2.5 MG/3 ML AMPUL NEB PRN (03:48)
[2017-04-19] MEDS ORDERED: PROMETHAZINE HCL 25 MG TABLET PO PRN (03:52)
[2017-04-19] MEDS ORDERED: ACETAMINOPHEN 325 MG TABLET PO PRN (03:52)
[2017-04-19] MEDS ORDERED: PHARMACY COMMUNICATION ORDER MC SCH (04:00)
--- NOTE | 2017-04-19 04:16 | PDOC H&P ---
History of Present Illness Admission Date/PCP: 04/18/17 23:45 BRIAN RODRIGUEZ MD Nephr Dr. Cespedes Patient complains of: ams History of Present Illness: TYLOR JIMENEZ is a 76 year old male with end-stage renal disease, on every Sunday hemodialysis, and with a urostomy, previously admitted for urinary tract infections, who presents to the emergency room by daughter, who brought him directly from dialysis due to above complaint. Per ER records, no chest pain, fever chills or vomiting. Patient has been discussed with emergency room physician who evaluated the patient. Patient is globally disoriented and is able to provide no history whatsoever in terms of acute or chronic events, review of systems, personal habits, family history, etc. No friends or family are present. Old inpatient records are reviewed. No further information available this point in time. Has required IV fluids, antibiotics, and also levofed, which is slowly being titrated off. Hospitalized on our service the through 28 October of this year with discharge diagnoses including sepsis secondary to urinary tract infection. Discharge summary has been reviewed. Admitted to our service October [id number] for septic shock due to recurrent urinary tract infection. History and physical reviewed. Dictation via voice recognition software. Laboratory results are listed in [facility] and are reviewed. X-ray summary results are listed below, with full report(s) reviewed. . EKG reviewed. Social history/personal habits: Per old records, . Lives with . Has children. No use of alcohol tobacco or illicit drugs. Allergies/adverse reactions are listed in [facility] and are reviewed. Home medications initially autopopulated into [employer] may not accurately reflect patient's true medications, dosages, and/or frequencies. 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 Unfortunately, patient not able to provide any information related to medications/dosages/frequencies. REVIEW OF SYSTEMS: See history and present illness. No further information available this point in time. PHYSICAL EXAMINATION: 78.4 kg. Height is not recorded on the chart. Blood pressure 119/50. Pulse 67 and regular. 97% saturation on 2 L oxygen per nasal cannula. Respirations are 17 and unlabored. Most recent temperature 100.0; 101.8 earlier. Skin feels normothermic at present. Well-nourished well-developed though perhaps somewhat chronically ill-appearing male who nevertheless appears approximately his stated age. Drowsy and fatigued, but does awaken when addressed in a normal volume voice. Maintaining airway well. Cooperative. Denies pain. Skin is warm and dry. No grossly obvious evidence of rash in areas of skin examined. No subcutaneous nodules palpated. ENT: Hearing grossly normal to normal conversation. Tongue midline on protrusion pink and slightly tacky. Eyes: No scleral icterus. Pupils equal and reactive to light at 4 mm. Mcgaffey conjunctivae. Neck is supple and nontender to gentle active range of motion and palpation. Midline trachea. No palpable thyroid nodule mass enlargement or tenderness. Lymphatic: No palpable cervical or clavicular nodes. Neck and lymphatic exams limited by patient body habitus. Psychiatric: Difficult to adequately evaluate due to above concerns. See history and present illness. Lungs: Auscultation reveals clear and equal breath sounds bilaterally. No use of accessory respiratory muscles. Cardiovascular: Heart regular rate and rhythm, without gallop murmur or rub. No carotid or abdominal aortic bruits. Scant bilateral symmetric essentially nonpitting ankle and pedal edema. Faintly palpable dorsalis pedis pulses. Abdomen:soft slightly distended nontender with positive bowel sounds. Unable to adequately evaluate abdomen for masses or organomegaly due to distention. Ostomy bag is covering his right lower quadrant urostomy. Clear light yellow tinged urine in bag. Extremities: Feet are cool but dry, with quite acceptable capillary refill at toes. No calf tenderness to compression. No grossly obvious visual evidence of calf swelling. Gentle manipulation of lower extremities fails to reveal any obvious evidence of injury or instability to knees hips or ankles. Neurologic: Patellar reflexes absent. Absent Babinski. Light touch can't be adequately evaluated due to his current mental status. Dorsiflexion and plantarflexion of feet 5 / 5 and symmetric. Past Medical History Past Medical History: Information from current and old records; patient not able to provide any information himself. Cardiac Medical History: Reports: Congestive Heart Failure, Coronary Artery Disease, Hyperlipidema, Hypertension, Peripheral Vascular Disease Pulmonary Medical History: Reports: Chronic Obstructive Pulmonary Disease (COPD ) - Possible Neurological Medical History: Denies: Seizures Endocrine Medical History: Reports: None Renal/ Medical History: Reports: End Stage Renal Disease - On hemodialysis Sunday and Sunday Malignancy Medical History: Reports: Renal (Kidney) Cancer GI Medical History: Reports: None Musculoskeltal Medical History: Reports: Gout Psychiatric Medical History: Reports: None Denies: Depression Infectious Medical History: Reports: Clostridium Difficile Past Surgical History Past Surgical History: Information from current and old records; patient not able to provide any information himself. Past Surgical History: Reports: Cardiac Catheterization, Coronary Artery Bypass Graft, Orthopedic Surgery - Right hip hemiarthroplasty August 2016, Vascular Surgery - AAA repair, Other - Nephrostomy tube placement, creation of ileal conduit, prostatectomy Social History Information Source: Emergency Med Personnel, [facility] Records Lives with: Family Smoking Status: Unknown if Ever Smoked Frequency of Alcohol Use: None Hx Recreational Drug Use: No Drugs: None Hx Prescription Drug Abuse: No - Advance Directive Resuscitation Status: Do Not Intubate Surrogate healthcare decision maker:: Daughter Kinjal Linn Family History Family History: Malignancy Parental Family History Reviewed: No - Patient not able to provide any information. Children Family History Reviewed: No - Patient not able to provide any information. Sibling(s) Family History Reviewed.: No - Patient not able to provide any information. Medication/Allergy Home Medications: Aspirin [Aspirin EC] 81 mg PO DAILY 04/19/17 Atorvastatin Calcium [Lipitor 20 mg Tablet] 20 mg PO QHS 04/19/17 Calcium Carbonate [Tums Chewable 500 mg Tab.chew] 2,000 mg PO BIDACBS 04/19/17 Colchicine [Colcrys 0.6 mg Tablet] 0.6 mg PO DAILYP PRN 04/19/17 Folic Acid/Vitamin B Comp W-C [Nephrocaps Multiple Vitamin Capsule] 1 cap PO DAILY 04/19/17 L. Rhamnosus GG/Inulin [Culturelle Capsule] 1 each PO DAILY 04/19/17 Magnesium Oxide [Mag-Ox 400 mg Tablet] 400 mg PO DAILY 04/19/17 Omeprazole 20 mg PO QAM 04/19/17 Sodium Bicarbonate [Sodium Bicarbonate 650 mg Tablet] 650 mg PO BID 04/19/17 Albuterol Sulfate [Proair Respiclick] 2 puff IH Q6HP PRN #1 aer.pow.[email or web address] 04/22/17 Amox Tr/Potassium Clavulanate [Augmentin "500" Tablet] 1 tab PO Q12 #14 tablet 04/22/17 Loperamide HCl [Imodium 2 mg Capsule] 4 mg PO Q6HP PRN capsule 04/22/17 Allergies/Adverse Reactions: ciprofloxacin [From Cipro] Allergy (Verified 04/18/17 15:19) Physical Exam Vital Signs: Temp Pulse Resp BP Pulse Ox 100.0 F 63 19 131/56 H 100 04/18/17 18:42 04/19/17 03:00 04/19/17 03:16 04/19/17 03:16 04/19/17 03:16 Results Impressions: Chest X-Ray 04/18/17 15:20 IMPRESSION: Rounded opacification in the medial left base. Likely hiatal hernia. Stable. Head CT 04/18/17 15:20 IMPRESSION: Limited study as above due to motion. No acute abnormality suggested, however. EVIDENCE OF ACUTE STROKE: NO. Pertinent findings on the imaging study reported as a CRITICAL RESULT to Dr. Lion at15:34 on 04/18/2017. Category of Critical Result: Stroke alert Assessment & Plan - Diagnosis (1) Acute encephalopathy Is this a current diagnosis for this admission?: Yes Plan: Likely secondary to septic shock due to urinary tract infection. Should clear with time and treatment. (2) DNI (do not intubate) Is this a current diagnosis for this admission?: Yes Plan: Implications of DO NOT INTUBATE status discussed with daughter Kinjal, who is his healthcare decision maker, per my telephone conversation with her 3:30 AM the morning of the fifth. Discussed in layperson's terms. Implications understood. Her conversation is lucid and appropriate. She desires DO NOT INTUBATE status, as has, per daughter, reportedly been expressed by patient and in the past. Will honor her wishes. (3) End-stage renal disease on hemodialysis Is this a current diagnosis for this admission?: Yes Plan: Nephrology consult. Prior to my being contacted, the ER physician did discuss the patient with Dr. Cespedes, who has agreed to see the patient in consultation. (4) Septic shock Is this a current diagnosis for this admission?: Yes Plan: Titrate Levophed as tolerated. Will require intensive care unit admission. (5) UTI (urinary tract infection) Qualifiers: Urinary tract infection type: site unspecified Is this a current diagnosis for this admission?: Yes Plan: Prior cultures reviewed, revealing pansensitive organisms. We will continue with Rocephin. I have strongly encouraged patient not to get out of bed without notifying staff , to avoid a fall with injury. Knee high SCDs for DVT prophylaxis, along with subcutaneous heparin. geremias spent in evaluation and management of patient: 55 critical care minutes. (6) Abnormal chest x-ray Is this a current diagnosis for this admission?: Yes Plan: Stable appearance. Likely hiatal hernia, according to radiologist. - Time Critical Time spent with patient: 35 or more minutes Medications reviewed and adjusted accordingly: No - Patient cannot provide any information related to medications. Anticipated discharge: Home Within: Other - Inpatient Certification Based on my medical assessment, after consideration of the patient's comorbidities, presenting symptoms, or acuity I expect that the services needed warrant INPATIENT care.: Yes I certify that my determination is in accordance with my understanding of Medicare's requirements for reasonable and necessary INPATIENT services [42 CFR 412.3e].: Yes Medical Necessity: Need Close Monitoring Due to Risk of Patient Decompensation, Need For IV Fluids, Need For Continuous Telemetry Monitoring, Need for IV Antibiotics, Risk of Diagnosis Which Will Require Inpatient Eval/Care/Monitoring Post Hospital Care: D/C or Transfer Summary
[2017-04-19 05:49] LABS: VENOUS BLOOD BASE EXCESS 3.8 mmol/L; VENOUS BLOOD HCO3 30.9 mmol/L (20-32); VENOUS BLOOD PCO2 58.5 mmHg (35-63); VENOUS BLOOD PH 7.34 (7.30-7.42)
[2017-04-19] MEDS ORDERED: INFLUENZA ADLT QUAD (36MOS+) 2017-18 VAC 0.5 ML SYR IM PRN (05:56)
[2017-04-19 06:06] LABS: ANION GAP 11 (5-19); BLOOD UREA NITROGEN 22 mg/dL (7-20); CALCIUM 8.5 mg/dL (8.4-10.2); CARBON DIOXIDE 28 mmol/L (22-30); CHLORIDE 99 mmol/L (98-107); CREATININE RESULT 3.09 mg/dL (0.52-1.25); GLUCOSE 99 mg/dL (75-110); POTASSIUM 4.4 mmol/L (3.6-5.0); SODIUM 138.1 mmol/L (137-145)
[2017-04-19 06:12] LABS: ABSOLUTE EOSINOPHILS # (AUTO) 0.1 10^3/uL (0.0-0.6); ABSOLUTE LYMPHOCYTES (AUTO) 1.5 10^3/uL (0.5-4.7); ABSOLUTE MONOCYTES (AUTO) 0.9 10^3/uL (0.1-1.4); ABSOLUTE NEUT (AUTO) 5.1 10^3/uL (1.7-8.2); BASOPHILS % (AUTO) 0.6 % (0-2); EOSINOPHILS % (AUTO) 1.1 % (0-6); LYMPHOCYTES % (AUTO) 19.5 % (13-45); MEAN CORPUSCULAR HEMOGLOBIN 32.2 pg (27.0-33.4); MEAN CORPUSCULAR HGB CONC 34.3 g/dL (32.0-36.0); MEAN CORPUSCULAR VOLUME 94 fl (80-97); MONOCYTES % (AUTO) 11.6 % (3-13); RED BLOOD COUNT 3.73 10^6/uL (4.35-5.55); RED CELL DISTRIBUTION WIDTH 13.4 % (11.5-14.0); SEGMENTED NEUTROPHILS % (AUTO) 67.2 % (42-78); WHITE BLOOD COUNT 7.6 10^3/uL (4.0-10.5)
[2017-04-19] MEDS ORDERED: BISACODYL 10 MG SUPP.RECT PR PRN (08:37)
--- NOTE | 2017-04-19 09:09 | EKG REPORT ---
SEVERITY:- NORMAL ECG - SINUS RHYTHM : Confirmed by: Marcy Dunham MD 19-Apr-2017 09:08:05
[2017-04-19] MEDS: PIPERACILLIN SODIUM/TAZOBACTAM 2.25 GM in NORMAL SALINE 50 ML IV SCH ×3 (10:02→20:32)
[2017-04-19] MEDS: HEPARIN SOD (PORCINE) 5,000 UNIT/ML 1 ML SYRINGE SUBCUT SCH ×2 (11:45→22:58)
--- NOTE | 2017-04-19 17:52 | PDOC CONSULTATION ---
Consultation Consult Date: 04/19/17 Attending physician:: BRODERICK THAKKAR Consult reason:: I was asked by Dr. Thakkar to see the patient for supervision of dialysis while admitted. History of Present Illness Admission Date/PCP: 04/19/17 03:45 BRIAN RODRIGUEZ MD History of Present Illness: Patient is a 76-year-old gentleman known to me with history of end- stage renal disease on hemodialysis 3 times a week, history of hypertension, anemia, recurrent urinary tract infection in the past,, history of C. difficile status post fecal transplant in the past who was brought in by the daughter yesterday to the emergency room after hemodialysis. Apparently after dialysis patient was found to be very weak and was unable to walk to the vehicle which she was able to do before. Apparently patient was noted to have altered mental status almost unresponsive yesterday so the patient was brought into the emergency room by the daughter. I did see the patient earlier in the afternoon during dialysis yesterday and the patient looked fine and is on his usual condition without any complaints. So this happened after dialysis treatment. Review of the dialysis treatment showed that the patient had ultrafiltration of about 2.6 kg. He came off with a weight of 78.8 kg elevated over his dry weight of 78.5 kg. His blood pressure postdialysis was noted to be 103/47. However and the patient arrived in the emergency room his he was relatively hypotensive requiring IV fluid boluses and pressor. Initial evaluation showed possibility of urinary tract infection. Patient was then started with antibiotics initially with ceftriaxone and currently on Zosyn. Today when I saw the patient he seems to be in his usual condition and mental state. Nurses confirm that the patient improved starting last night until this time. Patient was able to answer my questions and only thing he can remember yesterday was that he felt very weak after dialysis and could not stand and walk to their vehicle. Right now the patient is very oriented and coherent. He is still requiring a low dose of Levoped and still currently on IV fluids. He was given 1 L IV fluid boluses yesterday and is currently at 83 mL/hr of IV fluids. Patient denies any diarrhea, nausea, vomiting, abdominal pain, chest pains no shortness of breath. He is eating some. Otherwise he does not have any other complaints. Patient also relates that he has not been taking his medications for the last 2 months because he felt good. His usually uses primary caregiver and fix his medications for him but the has been sick recently and was just recently discharged from the hospital. Past Medical History Cardiac Medical History: Reports: Coronary Artery Disease, Hyperlipidemia, Hypertension-primary, Peripheral Vascular Disease Pulmonary Medical History: Reports: Chronic Obstructive Pulmonary Disease (COPD ) - Possible EENT Medical History: Reports: Ears - Bilateral hearing loss Endocrine Medical History: Reports: None Renal/ Medical History: Reports: End Stage Renal Disease - On hemodialysis Sunday and Sunday, Hyperphosphatemia, Metabolic Acidosis, Recurrent UTI Malignancy Medical History: Reports: Renal (Kidney) Cancer - History of bladder cancer and prostate cancer Musculoskeltal Medical History: Reports: Gout Infectious Medical History: Reports: 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 Past Surgical History Past Surgical History: Reports: Cardiac Catheterization, Coronary Artery Bypass Graft, Cystectomy, Dialysis Access Surgery AVF, Orthopedic Surgery - Right hip hemiarthroplasty August 2016, Vascular Surgery - AAA repair, Other - Nephrostomy tube placement, creation of ileal conduit, prostatectomy Social History Information Source: Office Lives with: Family, Spouse/Significant other Smoking Status: Never Smoker Frequency of Alcohol Use: None Hx Recreational Drug Use: No Drugs: None Hx Prescription Drug Abuse: No - Advance Directive Resuscitation Status: Do Not Intubate Family History Family History: Malignancy - Bone cancer in his father Parental Family History Reviewed: Yes Children Family History Reviewed: Unknown Sibling(s) Family History Reviewed.: Unknown Medication/Allergy Home Medications: Aspirin [Aspirin EC] 81 mg PO DAILY 04/19/17 Atorvastatin Calcium [Lipitor 20 mg Tablet] 20 mg PO QHS 04/19/17 Calcium Carbonate [Tums Chewable 500 mg Tab.chew] 2,000 mg PO BIDACBS 04/19/17 Colchicine [Colcrys 0.6 mg Tablet] 0.6 mg PO DAILYP PRN 04/19/17 Folic Acid/Vitamin B Comp W-C [Nephrocaps Multiple Vitamin Capsule] 1 cap PO DAILY 04/19/17 Isosorbide Dinitrate [Isordil Titradose 20 Mg Tablet] 20 mg PO Q12 04/19/17 L. Rhamnosus GG/Inulin [Culturelle Capsule] 1 each PO DAILY 04/19/17 Magnesium Oxide [Mag-Ox 400 mg Tablet] 400 mg PO DAILY 10/05/17 Omeprazole 20 mg PO QAM 04/19/17 Sodium Bicarbonate [Sodium Bicarbonate 650 mg Tablet] 650 mg PO BID 04/19/17 Allergies/Adverse Reactions: ciprofloxacin [From Cipro] Allergy (Verified 04/18/17 15:19) Review of Systems All systems: reviewed and no additional remarkable complaints except as stated Review of Systems: Constitutional: ABSENT: chills, fatigue, fever(s), headache(s), weight gain, weight loss; admits generalized weakness yesterday after dialysis Eyes: ABSENT: visual disturbances Ears: ABSENT: hearing changes Cardiovascular: ABSENT: chest pain, dyspnea on exertion, edema, orthropnea, palpitations Respiratory: ABSENT: cough, dyspnea, hemoptysis Gastrointestinal: ABSENT: abdominal pain, constipation, diarrhea, hematemesis, hematochezia, nausea, vomiting Genitourinary: ABSENT: dysuria, hematuria Musculoskeletal: ABSENT: joint swelling Integumentary: ABSENT: rash, wounds Neurological: ABSENT: abnormal gait, abnormal speech, dizziness, focal weakness , numbness, syncope; admits unresponsiveness and altered mentation yesterday which has resolved today Psychiatric: ABSENT: anxiety, depression Endocrine: ABSENT: cold intolerance, heat intolerance, polydipsia, polyuria Hematologic/Lymphatic: ABSENT: easy bleeding, easy bruising, lymphadenopathy Physical Exam Vital Signs: Temp Pulse Resp BP Pulse Ox 98.8 F 64 16 117/82 98 04/19/17 15:00 04/19/17 16:00 04/19/17 16:00 04/19/17 16:00 04/19/17 16:00 Intake & Output 04/18/17 04/19/17 04/20/17 06:59 06:59 06:59 Intake Total 240 Output Total 300 Balance -60 Weight 79.3 kg Exam: General appearance: no acute distress, cooperative, well-developed, well- nourished Head exam: PRESENT: atraumatic, normocephalic Eye exam: PRESENT: Conjunctiva slightly pale, EOMI, PERRLA. ABSENT: conjunctival injection, scleral icterus Mouth exam: PRESENT: moist, neck supple, tongue midline Neck exam: PRESENT: full ROM. ABSENT: carotid bruit, JVD, lymphadenopathy, thyromegaly Respiratory exam: PRESENT: Diminished to auscultation bilaterally. ABSENT: rales, rhonchi, stridor, wheezes Cardiovascular exam: PRESENT: RRR, +S1, +S2. ABSENT: systolic murmur Pulses: PRESENT: normal radial pulses, normal dorsalis pedis pulses GI/Abdominal exam: PRESENT: normal bowel sounds, soft. Urostomy in the right lower quadrant ABSENT: guarding, mass, tenderness Rectal exam: deferred Extremities exam: PRESENT: full ROM. ABSENT: calf tenderness, pedal edema Musculoskeletal: PRESENT: full ROM. ABSENT: deformity Neurological exam: PRESENT: alert, Awake, Oriented to person, Oriented to place , Oriented to time, reflexes normal, CN II-XII grossly intact. ABSENT: motor sensory deficit Psychiatric exam: PRESENT: appropriate affect, normal mood. ABSENT: homicidal ideation, suicidal ideation Skin exam: PRESENT: intact, dry, warm. ABSENT: rash Results Laboratory Results: 04/19/17 05:36 04/19/17 05:36 04/19/17 04/19/17 04/19/17 05:36 05:36 05:36 WBC 7.6 RBC 3.73 L Hgb 12.0 L Hct 35.0 L MCV 94 MCH 32.2 MCHC 34.3 RDW 13.4 Plt Count 123 L Seg Neutrophils % 67.2 Lymphocytes % 19.5 Monocytes % 11.6 Eosinophils % 1.1 Basophils % 0.6 Absolute Neutrophils 5.1 Absolute Lymphocytes 1.5 Absolute Monocytes 0.9 Absolute Eosinophils 0.1 Absolute Basophils 0.0 VBG pH 7.34 VBG pCO2 58.5 VBG HCO3 30.9 VBG Base Excess 3.8 Sodium 138.1 Potassium 4.4 Chloride 99 Carbon Dioxide 28 Anion Gap 11 BUN 22 H Creatinine 3.09 H Est GFR ( Amer) 24 L Est GFR (Non-Af Amer) 20 L Glucose 99 Calcium 8.5 Impressions: Chest X-Ray 04/18/17 15:20 IMPRESSION: Rounded opacification in the medial left base. Likely hiatal hernia. Stable. Head CT 04/18/17 15:20 IMPRESSION: Limited study as above due to motion. No acute abnormality suggested, however. EVIDENCE OF ACUTE STROKE: NO. Pertinent findings on the imaging study reported as a CRITICAL RESULT to Dr. Lion at15:34 on 04/18/2017. Category of Critical Result: Stroke alert Assessment & Plan - Diagnosis (1) Acute encephalopathy Is this a current diagnosis for this admission?: Yes Plan: Likely related to UTI with possible septic shock yesterday. Currently mentation is at baseline. (2) End-stage renal disease on hemodialysis Is this a current diagnosis for this admission?: Yes Plan: We will plan to do dialysis tomorrow. We will support hemodialysis treatment while here in the hospital. (3) Septic shock Is this a current diagnosis for this admission?: Yes Plan: Currently on antibiotics and low dose Levoped. (4) UTI (urinary tract infection) Qualifiers: Urinary tract infection type: site unspecified Qualified Code(s): N10 - Acute pyelonephritis Is this a current diagnosis for this admission?: Yes Plan: On IV Zosyn. (5) Anemia in chronic kidney disease (CKD) Is this a current diagnosis for this admission?: Yes - Notes Notes: Thank you very much for this consultation. - Time Time Spent: 50 to 70 Minutes
[2017-04-19] MEDS ORDERED: CEFTRIAXONE 1 GM/D5W RTU 1 GM/50 ML RTUPB IV SCH (18:00)
--- NOTE | 2017-04-19 18:36 | PDOC PROGRESS REPORT ---
Subjective Progress Note for:: 04/19/17 Subjective:: Patient reports he is feeling significantly better. Patient denies chest pain, shortness of breath, abdominal pain, nausea, vomiting , fevers, chills, diarrhea, headache, new onset weakness. Physical Exam Vital Signs: Temp Pulse Resp BP Pulse Ox 98.3 F 72 16 106/49 L 99 04/19/17 05:13 04/19/17 05:13 04/19/17 07:08 04/19/17 06:20 04/19/17 07:11 Intake & Output 04/18/17 04/19/17 04/20/17 06:59 06:59 06:59 Weight 79.3 kg Exam: General: Awake alert and oriented x3, no acute respiratory distress HEENT: AT/NC, PERRL, EOMI, oropharynx is moist, pink, no scleral icterus, no conjunctival injection Neck: No JVD, trachea midline Chest: Clear to auscultation bilaterally, no wheezes rhonchi or rales CV: Regular rate and rhythm, normal S1 and S2, no rub or gallop Abdomen: Soft, nontender to palpation, nondistended, active bowel sounds; no rebound, rigidity, or guarding Extremities: No cyanosis, clubbing or edema Neuro: Cranial nerves II through XII are grossly intact without focal deficits; awake alert and oriented x3 Psych: Normal mood and affect Results Laboratory Results: 04/19/17 05:36 04/19/17 05:36 04/19/17 04/19/17 04/19/17 05:36 05:36 05:36 WBC 7.6 RBC 3.73 L Hgb 12.0 L Hct 35.0 L MCV 94 MCH 32.2 MCHC 34.3 RDW 13.4 Plt Count 123 L Seg Neutrophils % 67.2 Lymphocytes % 19.5 Monocytes % 11.6 Eosinophils % 1.1 Basophils % 0.6 Absolute Neutrophils 5.1 Absolute Lymphocytes 1.5 Absolute Monocytes 0.9 Absolute Eosinophils 0.1 Absolute Basophils 0.0 VBG pH 7.34 VBG pCO2 58.5 VBG HCO3 30.9 VBG Base Excess 3.8 Sodium 138.1 Potassium 4.4 Chloride 99 Carbon Dioxide 28 Anion Gap 11 BUN 22 H Creatinine 3.09 H Est GFR ( Amer) 24 L Est GFR (Non-Af Amer) 20 L Glucose 99 Calcium 8.5 Impressions: Chest X-Ray 04/18/17 15:20 IMPRESSION: Rounded opacification in the medial left base. Likely hiatal hernia. Stable. Head CT 04/18/17 15:20 IMPRESSION: Limited study as above due to motion. No acute abnormality suggested, however. EVIDENCE OF ACUTE STROKE: NO. Pertinent findings on the imaging study reported as a CRITICAL RESULT to Dr. Lion at15:34 on 04/18/2017. Category of Critical Result: Stroke alert Assessment & Plan - Diagnosis (1) Septic shock Is this a current diagnosis for this admission?: Yes Plan: Currently on Zosyn. Attempt to maintain map greater than 65. We will be judicious with fluid administration in light of patient's end-stage renal disease. Continue the use of levophed. (2) Sepsis Qualifiers: Sepsis type: sepsis due to unspecified organism Qualified Code(s): A41.9 - Sepsis, unspecified organism Is this a current diagnosis for this admission?: Yes Plan: Patient with likely gram-negative sepsis secondary to infection of the urostomy. Patient currently on Zosyn (3) UTI (urinary tract infection) Qualifiers: Urinary tract infection type: site unspecified Qualified Code(s): N10 - Acute pyelonephritis Is this a current diagnosis for this admission?: Yes Plan: Currently on Zosyn pending culture (4) Acute encephalopathy Is this a current diagnosis for this admission?: Yes Plan: This has resolved. Patient is awake alert and oriented 3 (5) End-stage renal disease on hemodialysis Is this a current diagnosis for this admission?: Yes (6) Anemia in chronic kidney disease (CKD) Qualifiers: Chronic kidney disease stage: on chronic dialysis Qualified Code(s): N18.6 - End stage renal disease; D63.1 - Anemia in chronic kidney disease; D63.1 - Anemia in chronic kidney disease; Z99.2 - Dependence on renal dialysis; Z99.2 - Dependence on renal dialysis; Z99.2 - Dependence on renal dialysis; Z99.2 - Dependence on renal dialysis Is this a current diagnosis for this admission?: Yes Plan: Defer to renal for Epogen dosing (7) COPD (chronic obstructive pulmonary disease) Qualifiers: COPD type: unspecified COPD Qualified Code(s): J44.9 - Chronic obstructive pulmonary disease, unspecified Is this a current diagnosis for this admission?: Yes (8) DVT prophylaxis Is this a current diagnosis for this admission?: Yes (9) History of renal cell cancer Is this a current diagnosis for this admission?: Yes (10) H/O endovascular stent graft for abdominal aortic aneurysm Is this a current diagnosis for this admission?: Yes (11) PVD (peripheral vascular disease) Is this a current diagnosis for this admission?: Yes (12) DNI (do not intubate) Is this a current diagnosis for this admission?: Yes - Time Critical Time spent with patient: 25-34 minutes Medications reviewed and adjusted accordingly: Yes
[2017-04-20] MEDS: PIPERACILLIN SODIUM/TAZOBACTAM 2.25 GM in NORMAL SALINE 50 ML IV SCH ×4 (03:08→20:36)
[2017-04-20] MEDS ORDERED: NORMAL SALINE 1000 ML 1,000 ML IV PRN (05:00)
[2017-04-20 05:52] LABS: ABSOLUTE BASOPHILS # (AUTO) 0.1 10^3/uL (0.0-0.2); ABSOLUTE EOSINOPHILS # (AUTO) 0.1 10^3/uL (0.0-0.6); ABSOLUTE LYMPHOCYTES (AUTO) 1.7 10^3/uL (0.5-4.7); ABSOLUTE MONOCYTES (AUTO) 0.7 10^3/uL (0.1-1.4); BASOPHILS % (AUTO) 1.5 % (0-2); EOSINOPHILS % (AUTO) 2.5 % (0-6); HEMATOCRIT 33.3 % (37.9-51.0); HEMOGLOBIN 11.5 g/dL (13.5-17.0); HGB HCT DIFFERENCE 1.2; LYMPHOCYTES % (AUTO) 29.7 % (13-45); MEAN CORPUSCULAR HEMOGLOBIN 32.3 pg (27.0-33.4); MEAN CORPUSCULAR HGB CONC 34.7 g/dL (32.0-36.0); MEAN CORPUSCULAR VOLUME 93 fl (80-97); MONOCYTES % (AUTO) 12.4 % (3-13); RED BLOOD COUNT 3.57 10^6/uL (4.35-5.55); RED CELL DISTRIBUTION WIDTH 13.7 % (11.5-14.0); SEGMENTED NEUTROPHILS % (AUTO) 53.9 % (42-78); WHITE BLOOD COUNT 5.6 10^3/uL (4.0-10.5)
[2017-04-20 06:05] LABS: ANION GAP 11 (5-19); CALCIUM 8.2 mg/dL (8.4-10.2); CARBON DIOXIDE 24 mmol/L (22-30); CHLORIDE 104 mmol/L (98-107); CREATININE RESULT 3.88 mg/dL (0.52-1.25); GLUCOSE 103 mg/dL (75-110); POTASSIUM 4.2 mmol/L (3.6-5.0); SODIUM 139.2 mmol/L (137-145)
[2017-04-20 06:19] LABS: BLOOD UREA NITROGEN 43 mg/dL (7-20)
[2017-04-20] MEDS: FOLIC ACID/VITAMIN B COMP W-C CAPSULE PO SCH (10:04)
[2017-04-20] MEDS: ASPIRIN 81 MG TABLET, ENT COATED PO SCH (10:04)
[2017-04-20] MEDS: MAGNESIUM OXIDE 400 MG TABLET PO SCH (10:04)
[2017-04-20] MEDS: SODIUM BICARBONATE 650 MG TABLET PO SCH ×2 (10:05→17:39)
[2017-04-20] MEDS: HEPARIN SOD (PORCINE) 5,000 UNIT/ML 1 ML SYRINGE SUBCUT SCH ×2 (10:05→21:45)
[2017-04-20] MEDS: CALCIUM CARBONATE 500 MG TAB.CHEW PO SCH ×3 (12:04→21:45)
--- NOTE | 2017-04-20 15:34 | PDOC PROGRESS REPORT ---
Subjective Progress Note for:: 04/20/17 Subjective:: I saw the patient during dialysis around 8:35 AM this morning. Patient looks fine and claims he feels good. He does not have any complaints. He was still on Levoped of one microgram this morning. Physical Exam Vital Signs: Temp Pulse Resp BP Pulse Ox 97.9 F 65 15 97/58 L 96 04/20/17 14:00 04/20/17 14:00 04/20/17 14:52 04/20/17 14:52 04/20/17 14:52 Intake & Output 04/19/17 04/20/17 04/21/17 06:59 06:59 06:59 Intake Total 2649 Output Total 900 600 Balance 1749 -600 Weight 79.3 kg 80.3 kg Vitals at the initiation of dialysis: Blood pressure of 104/47, heart rate of 57 , respiratory rate of 18, oxygen saturation of 100% at room air, blood flow of 400 mL/min, dialysate flow of 800 mL/min. Exam: General appearance: PRESENT: no acute distress, cooperative, well-developed, well-nourished Head exam: PRESENT: atraumatic, normocephalic Eye exam: PRESENT: conjunctiva slightly pale, PERRLA. ABSENT: scleral icterus Neck exam: ABSENT: JVD Respiratory exam: PRESENT: Diminished breath sounds. ABSENT: crackles, rales, rhonchi, unlabored, wheezes Cardiovascular exam: PRESENT: Regular rate rhythm -+S1, +S2. ABSENT: diastolic murmur, systolic murmur GI/Abdominal exam: PRESENT: normal bowel sounds, soft. Urostomy bag in the right lower quadrant ABSENT: guarding, mass, tenderness Extremities exam: ABSENT: No edema Neurological exam: PRESENT: alert, awake, oriented to person, place and time. Skin exam: PRESENT: dry, warm, Results Laboratory Results: 04/20/17 05:34 04/20/17 05:34 04/20/17 04/20/17 05:34 05:34 WBC 5.6 RBC 3.57 L Hgb 11.5 L Hct 33.3 L MCV 93 MCH 32.3 MCHC 34.7 RDW 13.7 Plt Count 113 L Seg Neutrophils % 53.9 Lymphocytes % 29.7 Monocytes % 12.4 Eosinophils % 2.5 Basophils % 1.5 Absolute Neutrophils 3.0 Absolute Lymphocytes 1.7 Absolute Monocytes 0.7 Absolute Eosinophils 0.1 Absolute Basophils 0.1 Sodium 139.2 Potassium 4.2 Chloride 104 Carbon Dioxide 24 Anion Gap 11 BUN 43 H D Creatinine 3.88 H Est GFR ( Amer) 18 L Est GFR (Non-Af Amer) 15 L Glucose 103 Calcium 8.2 L Impressions: Chest X-Ray 04/18/17 15:20 IMPRESSION: Rounded opacification in the medial left base. Likely hiatal hernia. Stable. Head CT 04/18/17 15:20 IMPRESSION: Limited study as above due to motion. No acute abnormality suggested, however. EVIDENCE OF ACUTE STROKE: NO. Pertinent findings on the imaging study reported as a CRITICAL RESULT to Dr. Lion at15:34 on 04/18/2017. Category of Critical Result: Stroke alert Assessment & Plan - Diagnosis (1) Acute encephalopathy Is this a current diagnosis for this admission?: Yes Plan: Likely related to UTI with possible septic shock yesterday. Currently mentation is at baseline. Now resolved. (2) End-stage renal disease on hemodialysis Is this a current diagnosis for this admission?: Yes Plan: We did dialysis today for 3 hours, using the patient's left arm AV fistula, with 2 potassium bath, blood flow rate of 400 mL per minute, dialysate flow rate of 800 mL per minute, ultrafiltration 500 mL at the moment as tolerated, no heparin and no Procrit during dialysis. Patient tolerated dialysis well without any problems. Next dialysis will be on Sunday if the patient is still here in the hospital. (3) Septic shock Is this a current diagnosis for this admission?: Yes Plan: Currently on antibiotics and off the Levoped. (4) UTI (urinary tract infection) Qualifiers: Urinary tract infection type: site unspecified Qualified Code(s): N10 - Acute pyelonephritis Is this a current diagnosis for this admission?: Yes Plan: Due to E. coli. On IV Zosyn. (5) Anemia in chronic kidney disease (CKD) Qualifiers: Chronic kidney disease stage: on chronic dialysis Qualified Code(s): N18.6 - End stage renal disease; D63.1 - Anemia in chronic kidney disease; D63.1 - Anemia in chronic kidney disease; Z99.2 - Dependence on renal dialysis; Z99.2 - Dependence on renal dialysis; Z99.2 - Dependence on renal dialysis; Z99.2 - Dependence on renal dialysis Is this a current diagnosis for this admission?: Yes - Time Time with patient: 15-25 minutes
--- NOTE | 2017-04-20 18:54 | PDOC PROGRESS REPORT ---
Subjective Progress Note for:: 04/20/17 Subjective:: Patient reports he has not been taking his medications with the exception of Patient reports he is feeling significantly better. Patient denies chest pain, shortness of breath, abdominal pain, nausea, vomiting , fevers, chills, diarrhea, headache, new onset weakness. Physical Exam Vital Signs: Temp Pulse Resp BP Pulse Ox 97.9 F 65 15 97/58 L 96 04/20/17 14:00 04/20/17 14:00 04/20/17 14:52 04/20/17 14:52 04/20/17 14:52 Intake & Output 04/19/17 04/20/17 04/21/17 06:59 06:59 06:59 Intake Total 2649 Output Total 900 950 Balance 1749 -950 Weight 79.3 kg 80.3 kg Exam: General: Awake alert and oriented x3, no acute respiratory distress HEENT: AT/NC, PERRL, EOMI, oropharynx is moist, pink, no scleral icterus, no conjunctival injection Neck: No JVD, trachea midline Chest: Clear to auscultation bilaterally, no wheezes rhonchi or rales CV: Regular rate and rhythm, normal S1 and S2, no rub or gallop Abdomen: Soft, nontender to palpation, nondistended, active bowel sounds; no rebound, rigidity, or guarding Extremities: No cyanosis, clubbing or edema Neuro: Cranial nerves II through XII are grossly intact without focal deficits; awake alert and oriented x3 Psych: Normal mood and affect Results Laboratory Results: 04/20/17 05:34 04/20/17 05:34 04/20/17 04/20/17 05:34 05:34 WBC 5.6 RBC 3.57 L Hgb 11.5 L Hct 33.3 L MCV 93 MCH 32.3 MCHC 34.7 RDW 13.7 Plt Count 113 L Seg Neutrophils % 53.9 Lymphocytes % 29.7 Monocytes % 12.4 Eosinophils % 2.5 Basophils % 1.5 Absolute Neutrophils 3.0 Absolute Lymphocytes 1.7 Absolute Monocytes 0.7 Absolute Eosinophils 0.1 Absolute Basophils 0.1 Sodium 139.2 Potassium 4.2 Chloride 104 Carbon Dioxide 24 Anion Gap 11 BUN 43 H D Creatinine 3.88 H Est GFR ( Amer) 18 L Est GFR (Non-Af Amer) 15 L Glucose 103 Calcium 8.2 L Impressions: Chest X-Ray 04/18/17 15:20 IMPRESSION: Rounded opacification in the medial left base. Likely hiatal hernia. Stable. Head CT 04/18/17 15:20 IMPRESSION: Limited study as above due to motion. No acute abnormality suggested, however. EVIDENCE OF ACUTE STROKE: NO. Pertinent findings on the imaging study reported as a CRITICAL RESULT to Dr. Lion at15:34 on 04/18/2017. Category of Critical Result: Stroke alert Assessment & Plan - Diagnosis (1) Septic shock Is this a current diagnosis for this admission?: Yes Plan: Currently on Zosyn. Attempt to maintain map greater than 65. Has been off Levophed (2) Sepsis Qualifiers: Sepsis type: Escherichia coli Qualified Code(s): A41.51 - Sepsis due to Escherichia coli [E. coli] Is this a current diagnosis for this admission?: Yes Plan: Continue patient on Zosyn he has E. coli in his urostomy tube. This is pansensitive, patient came in with septic shock and I have concerned for transitioning him to oral medication at this time. We will transition tomorrow. (3) UTI (urinary tract infection) Qualifiers: Urinary tract infection type: site unspecified Is this a current diagnosis for this admission?: Yes Plan: E. coli UTI (4) Acute encephalopathy Is this a current diagnosis for this admission?: Yes Plan: This has resolved. Patient is awake alert and oriented 3 Secondary to sepsis (5) End-stage renal disease on hemodialysis Is this a current diagnosis for this admission?: Yes Plan: Patient has been dialyzed today. We appreciate nephrology input (6) Anemia in chronic kidney disease (CKD) Qualifiers: Chronic kidney disease stage: on chronic dialysis Qualified Code(s): N18.6 - End stage renal disease; D63.1 - Anemia in chronic kidney disease; D63.1 - Anemia in chronic kidney disease; Z99.2 - Dependence on renal dialysis; Z99.2 - Dependence on renal dialysis; Z99.2 - Dependence on renal dialysis; Z99.2 - Dependence on renal dialysis Is this a current diagnosis for this admission?: Yes Plan: Defer to renal for Epogen dosing (7) COPD (chronic obstructive pulmonary disease) Qualifiers: COPD type: unspecified COPD Qualified Code(s): J44.9 - Chronic obstructive pulmonary disease, unspecified Is this a current diagnosis for this admission?: Yes (8) DVT prophylaxis Is this a current diagnosis for this admission?: Yes Plan: Heparin (9) History of renal cell cancer Is this a current diagnosis for this admission?: Yes (10) H/O endovascular stent graft for abdominal aortic aneurysm Is this a current diagnosis for this admission?: Yes (11) PVD (peripheral vascular disease) Is this a current diagnosis for this admission?: Yes (12) DNI (do not intubate) Is this a current diagnosis for this admission?: Yes - Time Time Spent with patient: 25-34 minutes Medications reviewed and adjusted accordingly: Yes
[2017-04-20] MEDS: ATORVASTATIN CALCIUM 20 MG TABLET PO SCH (21:44)
[2017-04-21] MEDS: PIPERACILLIN SODIUM/TAZOBACTAM 2.25 GM in NORMAL SALINE 50 ML IV SCH (02:03)
[2017-04-21] MEDS: LANSOPRAZOLE 15 MG TAB.RAP.DR PO SCH (07:47)
[2017-04-21] MEDS: CALCIUM CARBONATE 500 MG TAB.CHEW PO SCH ×4 (07:47→21:10)
[2017-04-21] MEDS: FOLIC ACID/VITAMIN B COMP W-C CAPSULE PO SCH (09:40)
[2017-04-21] MEDS: ASPIRIN 81 MG TABLET, ENT COATED PO SCH (09:40)
[2017-04-21] MEDS: SODIUM BICARBONATE 650 MG TABLET PO SCH ×2 (09:40→18:41)
[2017-04-21] MEDS: AMOXICILLIN TR/POT CLAVULANATE 500-125 MG TAB PO SCH ×2 (09:40→21:10)
[2017-04-21] MEDS: MAGNESIUM OXIDE 400 MG TABLET PO SCH (09:40)
[2017-04-21] MEDS ORDERED: IPRATROPIUM/ALBUTEROL 0.5-2.5 MG/3 ML AMPUL NEB ONE (11:00)
[2017-04-21] MEDS: HEPARIN SOD (PORCINE) 5,000 UNIT/ML 1 ML SYRINGE SUBCUT SCH (11:00)
[2017-04-21] MEDS: IPRATROPIUM/ALBUTEROL 0.5-2.5 MG/3 ML AMPUL NEB SCH ×2 (14:10→20:09)
--- NOTE | 2017-04-21 16:41 | PDOC PROGRESS REPORT ---
Subjective Progress Note for:: 04/21/17 Subjective:: Patient reports he had 5 loose stools today. Patient denies chest pain, shortness of breath, abdominal pain, nausea, vomiting , fevers, chills, headache, new onset weakness. Physical Exam Vital Signs: Temp Pulse Resp BP Pulse Ox 98.5 F 58 L 18 111/52 L 100 04/21/17 05:17 04/21/17 05:17 04/21/17 05:17 04/21/17 05:17 04/21/17 05:17 Intake & Output 04/20/17 04/21/17 04/22/17 06:59 06:59 06:59 Intake Total 2649 754 Output Total 900 1350 Balance 1749 -596 Weight 80.3 kg 82.9 kg Exam: General: Awake alert and oriented x3, no acute respiratory distress HEENT: AT/NC, PERRL, EOMI, oropharynx is moist, pink, no scleral icterus, no conjunctival injection Neck: No JVD, trachea midline Chest: wheezing left Side greater than right CV: Regular rate and rhythm, normal S1 and S2, no rub or gallop Abdomen: Soft, nontender to palpation, nondistended, active bowel sounds; no rebound, rigidity, or guarding Extremities: No cyanosis, clubbing or edema; left upper extremity fistula with thrill Neuro: Cranial nerves II through XII are grossly intact without focal deficits; awake alert and oriented x3 Psych: Normal mood and affect Results Laboratory Results: 04/20/17 05:34 04/20/17 05:34 Impressions: Chest X-Ray 04/18/17 15:20 IMPRESSION: Rounded opacification in the medial left base. Likely hiatal hernia. Stable. Head CT 04/18/17 15:20 IMPRESSION: Limited study as above due to motion. No acute abnormality suggested, however. EVIDENCE OF ACUTE STROKE: NO. Pertinent findings on the imaging study reported as a CRITICAL RESULT to Dr. Lion at15:34 on 04/18/2017. Category of Critical Result: Stroke alert Assessment & Plan - Diagnosis (1) Septic shock Is this a current diagnosis for this admission?: Yes Plan: Resolved secondary to E. coli complicated infection (2) Sepsis Qualifiers: Sepsis type: Escherichia coli Qualified Code(s): A41.51 - Sepsis due to Escherichia coli [E. coli] Is this a current diagnosis for this admission?: Yes Plan: E. coli in his urostomy tube. Transition patient to Augmentin renally adjusted (3) UTI (urinary tract infection) Qualifiers: Urinary tract infection type: site unspecified Is this a current diagnosis for this admission?: Yes Plan: E. coli UTI (4) Acute encephalopathy Is this a current diagnosis for this admission?: Yes Plan: This has resolved. Patient is awake alert and oriented 3 Secondary to sepsis (5) End-stage renal disease on hemodialysis Is this a current diagnosis for this admission?: Yes Plan: Patient to be dialyzed on Sunday (6) Anemia in chronic kidney disease (CKD) Qualifiers: Chronic kidney disease stage: on chronic dialysis Qualified Code(s): N18.6 - End stage renal disease; D63.1 - Anemia in chronic kidney disease; D63.1 - Anemia in chronic kidney disease; Z99.2 - Dependence on renal dialysis; Z99.2 - Dependence on renal dialysis; Z99.2 - Dependence on renal dialysis; Z99.2 - Dependence on renal dialysis Is this a current diagnosis for this admission?: Yes Plan: Defer to renal for Epogen dosing (7) COPD (chronic obstructive pulmonary disease) Qualifiers: COPD type: unspecified COPD Qualified Code(s): J44.9 - Chronic obstructive pulmonary disease, unspecified Is this a current diagnosis for this admission?: Yes Plan: Place patient on DuoNeb's Consider prednisone (8) History of renal cell cancer Is this a current diagnosis for this admission?: Yes (9) H/O endovascular stent graft for abdominal aortic aneurysm Is this a current diagnosis for this admission?: Yes (10) PVD (peripheral vascular disease) Is this a current diagnosis for this admission?: Yes (11) DNI (do not intubate) Is this a current diagnosis for this admission?: Yes (12) DVT prophylaxis Is this a current diagnosis for this admission?: Yes Plan: Hold secondary to thrombocytopenia (13) Diarrhea Qualifiers: Diarrhea type: unspecified type Qualified Code(s): R19.7 - Diarrhea, unspecified Is this a current diagnosis for this admission?: Yes Plan: Patient has history of C. difficile we will check this. - Time Time Spent with patient: 25-34 minutes Medications reviewed and adjusted accordingly: Yes Anticipated discharge: Home Within: within 24 hours, within 48 hours
[2017-04-21] MEDS: LACTOBACILLUS ACIDOPHILUS 250 MG TAB PO SCH (18:41)
[2017-04-21] MEDS: ATORVASTATIN CALCIUM 20 MG TABLET PO SCH (21:10)
[2017-04-22] MEDS ORDERED: LOPERAMIDE HCL 2 MG CAPSULE PO PRN (07:36)
[2017-04-22] MEDS: LANSOPRAZOLE 15 MG TAB.RAP.DR PO SCH (07:42)
[2017-04-22] MEDS: CALCIUM CARBONATE 500 MG TAB.CHEW PO SCH (07:42)
[2017-04-22] MEDS: IPRATROPIUM/ALBUTEROL 0.5-2.5 MG/3 ML AMPUL NEB SCH (08:25)
[2017-04-22] MEDS: AMOXICILLIN TR/POT CLAVULANATE 500-125 MG TAB PO SCH (09:54)
[2017-04-22] MEDS: SODIUM BICARBONATE 650 MG TABLET PO SCH (09:54)
[2017-04-22] MEDS: FOLIC ACID/VITAMIN B COMP W-C CAPSULE PO SCH (09:55)
[2017-04-22] MEDS: LACTOBACILLUS ACIDOPHILUS 250 MG TAB PO SCH (09:55)
[2017-04-22] MEDS: ASPIRIN 81 MG TABLET, ENT COATED PO SCH (09:55)
[2017-04-22 10:47] VITALS: BP 111/48
--- NOTE | 2017-04-22 19:37 | PDOC DISCHARGE SUMMARY ---
General - Admit/Disc Date/PCP Admission Date/Primary Care Provider: 04/19/17 03:45 BRIAN RODRIGUEZ MD Discharge Date: 04/22/17 - Discharge Diagnosis (1) Septic shock Is this a current diagnosis for this admission?: Yes (2) Sepsis Is this a current diagnosis for this admission?: Yes (3) UTI (urinary tract infection) Is this a current diagnosis for this admission?: Yes (4) Acute encephalopathy Is this a current diagnosis for this admission?: Yes (5) End-stage renal disease on hemodialysis Is this a current diagnosis for this admission?: Yes (6) Anemia in chronic kidney disease (CKD) Is this a current diagnosis for this admission?: Yes (7) COPD (chronic obstructive pulmonary disease) Is this a current diagnosis for this admission?: Yes (8) History of renal cell cancer Is this a current diagnosis for this admission?: Yes (9) H/O endovascular stent graft for abdominal aortic aneurysm Is this a current diagnosis for this admission?: Yes (10) PVD (peripheral vascular disease) Is this a current diagnosis for this admission?: Yes (11) Diarrhea Is this a current diagnosis for this admission?: Yes - Additional Information Resuscitation Status: Do Not Intubate Discharge Diet: Other (Comments) Discharge Activity: Activity As Tolerated Home Medications: Aspirin [Aspirin EC] 81 mg PO DAILY 04/19/17 Atorvastatin Calcium [Lipitor 20 mg Tablet] 20 mg PO QHS 04/19/17 Calcium Carbonate [Tums Chewable 500 mg Tab.chew] 2,000 mg PO BIDACBS 04/19/17 Colchicine [Colcrys 0.6 mg Tablet] 0.6 mg PO DAILYP PRN 04/19/17 Folic Acid/Vitamin B Comp W-C [Nephrocaps Multiple Vitamin Capsule] 1 cap PO DAILY 04/19/17 L. Rhamnosus GG/Inulin [Culturelle Capsule] 1 each PO DAILY 04/19/17 Magnesium Oxide [Mag-Ox 400 mg Tablet] 400 mg PO DAILY 04/19/17 Omeprazole 20 mg PO QAM 04/19/17 Sodium Bicarbonate [Sodium Bicarbonate 650 mg Tablet] 650 mg PO BID 04/19/17 Albuterol Sulfate [Proair Respiclick] 2 puff IH Q6HP PRN #1 aer.[email or web address] 04/22/17 Amox Tr/Potassium Clavulanate [Augmentin "500" Tablet] 1 tab PO Q12 #14 tablet 04/22/17 Loperamide HCl [Imodium 2 mg Capsule] 4 mg PO Q6HP PRN capsule 04/22/17 History of Present Illness History of Present Illness: Please see H&P for full HPI Hospital Course Hospital Course: Patient is 76-year-old male with end-stage renal failure, coronary artery disease, history of renal cell cancer who presented to the emergency department with altered mental status. Patient was found to have UTI from his urostomy. Patient was initially hypotensive and placed on pressors in the ICU. He responded well to fluid hydration. He received hemodialysis with the help of Dr. Cespedes while he was admitted. Patient continued to improve and was transitioned to the floor. He was found to grow pansensitive E. coli. He was transitioned from Zosyn to Augmentin renally adjusted. He did well with this but did develop some diarrhea. This was tested for C. difficile found to be negative. It was discovered during the course of his stay the patient was noncompliant with his home medications and had not been taking any of them for several months. Patient was doing well and stable for discharge home with the idea that he will go to dialysis tomorrow as normally scheduled. Patient was anxious to leave the hospital as his has recently been hospitalized and recently discharged home. Physical Exam Vital Signs: Temp Pulse Resp BP Pulse Ox 98.1 F 62 18 111/48 L 90 L 04/22/17 10:40 04/22/17 10:40 04/22/17 10:40 04/22/17 10:40 04/22/17 10:40 Intake & Output 04/21/17 04/22/17 04/23/17 06:59 06:59 06:59 Intake Total 754 886 Output Total 1350 800 Balance -596 86 Weight 82.9 kg Exam: General: Awake alert and oriented x3, no acute respiratory distress HEENT: AT/NC, PERRL, EOMI, oropharynx is moist, pink, no scleral icterus, no conjunctival injection Neck: No JVD, trachea midline Chest: Clear to auscultation bilaterally CV: Regular rate and rhythm, normal S1 and S2, no rub or gallop Abdomen: Soft, nontender to palpation, nondistended, active bowel sounds; no rebound, rigidity, or guarding Extremities: No cyanosis, clubbing or edema; left upper extremity fistula with thrill Neuro: Cranial nerves II through XII are grossly intact without focal deficits; awake alert and oriented x3 Psych: Normal mood and affect Results Laboratory Results: 04/20/17 05:34 04/20/17 05:34 04/21/17 16:45 Stool for White Cells NO WBCs SEEN Impressions: Chest X-Ray 04/18/17 15:20 IMPRESSION: Rounded opacification in the medial left base. Likely hiatal hernia. Stable. Head CT 04/18/17 15:20 IMPRESSION: Limited study as above due to motion. No acute abnormality suggested, however. EVIDENCE OF ACUTE STROKE: NO. Pertinent findings on the imaging study reported as a CRITICAL RESULT to Dr. Lion at15:34 on 04/18/2017. Category of Critical Result: Stroke alert Qualifiers PATEINT BEING DISCHARGED WITH ANY OF THE FOLLOWING DIAGNOSIS?: No Plan Time Spent: Less than 30 Minutes
== END 2017-04-22 11:30 | disposition home or self-care (01) | DRG 871 ==
LOC: ER 15:15 → UNDOADMIN 23:45 → EH 23:45 → ICU 04-19 04:54 → 3W 04-20 16:31
PROVIDERS: ADMIT Family Medicine; ATTEND Family Medicine
PROC: 5A09457 Assistance with Respiratory Ventilation, 24-96 Consecutive Hours, Continuous Positive Airway Pressure (ICD-10-PCS; 2017-04-19)
PROC: 5A1D70Z Performance of Urinary Filtration, Intermittent, Less than 6 Hours Per Day (ICD-10-PCS; principal; 2017-04-20)
DX: A41.51 Sepsis due to Escherichia coli [E. coli] (principal); R65.21 Severe sepsis with septic shock; G93.41 Metabolic encephalopathy; N18.6 End stage renal disease; N10 Acute pyelonephritis; T83.518A Infection and inflammatory reaction due to other urinary catheter, initial encounter; I13.2 Hypertensive heart and chronic kidney disease with heart failure and with stage 5 chronic kidney disease, or end stage renal disease; Z99.2 Dependence on renal dialysis; D63.1 Anemia in chronic kidney disease; I25.10 Atherosclerotic heart disease of native coronary artery without angina pectoris; E78.5 Hyperlipidemia, unspecified; I73.9 Peripheral vascular disease, unspecified; J44.9 Chronic obstructive pulmonary disease, unspecified; M10.9 Gout, unspecified; I50.9 Heart failure, unspecified; Z79.899 Other long term (current) drug therapy; R19.7 Diarrhea, unspecified; Z91.19 Patient's noncompliance with other medical treatment and regimen; Z85.528 Personal history of other malignant neoplasm of kidney; Z85.46 Personal history of malignant neoplasm of prostate; Z96.641 Presence of right artificial hip joint; Z80.8 Family history of malignant neoplasm of other organs or systems; Z95.1 Presence of aortocoronary bypass graft; Z66 Do not resuscitate; Z88.1 Allergy status to other antibiotic agents; Z87.448 Personal history of other diseases of urinary system; Z85.51 Personal history of malignant neoplasm of bladder
CPT/HCPCS: 36415; 70450; 71020; 80048; 80053; 81001; 82533; 82803; 82962; 83605; 85025; 85610; 87040; 87045; 87086; 87088; 87186; 87205; 87493; 89055; 93005; 93010; 94640; 94660; 96361; 96365; 96366; 96367; 99285; J0456; J0696; J1644; J2543; J3490; J7030; J7060; J7620

== ENCOUNTER 2017-04-23 16:56 | Inpatient (IN) | payer OTHER, MEDICARE ==
[2017-04-23] MEDS ORDERED: NORMAL SALINE 500 ML IV PRN (19:04)
[2017-04-23] MEDS ORDERED: IPRATROPIUM/ALBUTEROL 0.5-2.5 MG/3 ML AMPUL NEB ONE ×2 (19:04→22:03)
--- NOTE | 2017-04-23 19:08 | ER Document Report ---
ED General - General Chief Complaint: General Weakness Stated Complaint: CONFUSION Time Seen by Provider: 04/23/17 19:01 Mode of Arrival: Wheelchair Information source: Patient, Relative Notes: This is a 76-year-old man is accompanied by his daughter. The patient has a history of prostate cancer and cystectomy with ileal conduit. Patient has a recent admission for encephalopathy in the setting of urosepsis. He is brought into the emergency room after hemodialysis because of a fever of 101.2 in association with weakness and confusion. Currently, the patient denies any pain. TRAVEL OUTSIDE OF THE [place] IN LAST 30 DAYS: No - HPI Onset: Just prior to arrival Onset/Duration: Gradual Quality of pain: No pain Severity: None Pain Level: Denies Associated symptoms: Fever, Shortness of breath. denies: Nausea, Vomiting Exacerbated by: Denies Relieved by: Denies Similar symptoms previously: Yes Recently seen / treated by doctor: Yes - Related Data Allergies/Adverse Reactions: ciprofloxacin [From Cipro] Allergy (Verified 04/18/17 15:19) Past Medical History - General Information source: Patient - Social History Smoking Status: Former Smoker Cigarette use (# per day): No - Long history of smoking Chew tobacco use (# tins/day): No Frequency of alcohol use: None Drug Abuse: None Lives with: Family Family History: Malignancy Patient has suicidal ideation: No Patient has homicidal ideation: No - Past Medical History Cardiac Medical History: Reports: Hx Congestive Heart Failure, Hx Coronary Artery Disease, Hx Hypercholesterolemia, Hx Hypertension, Hx Peripheral Vascular Disease Pulmonary Medical History: Reports: Hx COPD - Possible Neurological Medical History: Denies: Hx Cerebrovascular Accident, Hx Seizures Renal/ Medical History: Reports: Hx End Stage Renal Disease - On hemodialysis Sunday and Sunday. Denies: Hx Peritoneal Dialysis Malignancy Medical History: Reports Hx Renal (Kidney) Cancer Musculoskeltal Medical History: Reports Hx Gout Psychiatric Medical History: Denies: Hx Depression Infectious Medical History: Reports: Hx C-Diff Past Surgical History: Reports: Hx Cardiac Catheterization, Hx Cardiac Surgery - CABG, Hx Coronary Artery Bypass Graft, Hx Genitourinary Surgery - urostomy, Hx Orthopedic Surgery - Right hip hemiarthroplasty August 2016, Hx Vascular Surgery - AAA repair, Other - Nephrostomy tube placement, creation of ileal conduit, prostatectomy - Immunizations Immunizations up to date: Yes Hx Diphtheria, Pertussis, Tetanus Vaccination: Yes Hx Pneumococcal Vaccination: 04/17/14 Review of Systems - Review of Systems Constitutional: Fever EENT: No symptoms reported Cardiovascular: No symptoms reported Respiratory: Short of breath, Wheezing Gastrointestinal: No symptoms reported Genitourinary: No symptoms reported Male Genitourinary: No symptoms reported Musculoskeletal: No symptoms reported Skin: No symptoms reported Hematologic/Lymphatic: No symptoms reported Neurological/Psychological: Confusion Physical Exam - Vital signs Vitals: Temp Pulse Resp BP Pulse Ox 99.2 F 97 16 88/53 L 100 04/23/17 17:44 04/23/17 17:44 04/23/17 17:44 04/23/17 17:44 04/23/17 17:44 Notes: Physical exam: GENERAL: 76-year-old man, alert and oriented, no acute distress. Patient's oxygen saturation is in the 80s. HEAD: Atraumatic, normocephalic. EYES: Pupils equal round and reactive to light, extraocular movements intact, sclera anicteric, conjunctiva are normal. ENT: TMs normal, nares patent, oropharynx clear without exudates. Moist mucous membranes. NECK: Normal range of motion, supple without obvious mass or JVD. LUNGS: Bilateral wheezing with decreased breath sounds bilaterally HEART: Regular rate and rhythm without murmurs, rubs or gallops. ABDOMEN: Soft, normoactive bowel sounds. No tenderness to palpation. No guarding, no rebound. No masses appreciated. EXTREMITIES: Normal range of motion, no pitting or edema. No clubbing or cyanosis. NEUROLOGICAL: Cranial nerves II through XII grossly intact. Normal speech, moving all extremities. PSYCH: Normal mood, normal affect. SKIN: Warm, Dry, normal turgor, no rashes or lesions noted. Course - Vital Signs Vital signs: Temp Pulse Resp BP Pulse Ox 99.9 F 85 20 117/47 L 99 04/24/17 02:12 04/24/17 02:12 04/24/17 02:12 04/24/17 02:12 04/24/17 02:12 - Laboratory Result Diagrams: 04/23/17 20:04 04/23/17 20:04 Laboratory results interpreted by me: 04/23/17 04/23/17 04/23/17 20:04 20:04 20:04 RBC 3.47 L Hgb 11.1 L Hct 32.5 L Creatinine 2.74 H Est GFR ( Amer) 28 L Est GFR (Non-Af Amer) 23 L Glucose 114 H Lactic Acid 2.3 H Calcium 8.1 L Urine Protein Urine Blood Ur Leukocyte Esterase 04/23/17 20:30 RBC Hgb Hct Creatinine Est GFR ( Amer) Est GFR (Non-Af Amer) Glucose Lactic Acid Calcium Urine Protein 100 H Urine Blood SMALL H Ur Leukocyte Esterase SMALL H - Diagnostic Test Radiology reviewed: Image reviewed, Reports reviewed - EKG Interpretation by Me Rate: Normal Rhythm: NSR - Chest x-ray shows no obvious infiltrates EKG shows normal sinus rhythm with a ventricular rate of 85, no acute ST-T wave changes Discharge - Discharge Clinical Impression: Acute COPD exacerbation, Febrile illness Condition: Stable Disposition: ADMITTED INPATIENT Admitting Provider: Hospitalist - Dr. Mitchell Unit Admitted: [facility]
--- NOTE | 2017-04-23 19:20 | RADIOLOGY REPORT (SQ) ---
EXAM DESCRIPTION: CHEST SINGLE VIEW COMPLETED DATE/TIME: 04/23/2017 7:12 pm REASON FOR STUDY: sob COMPARISON: None. EXAM PARAMETERS: NUMBER OF VIEWS: One view. TECHNIQUE: Single frontal radiographic view of the chest acquired. RADIATION DOSE: NA LIMITATIONS: None. FINDINGS: LUNGS AND PLEURA: No opacities, masses or pneumothorax. No pleural effusion. MEDIASTINUM AND HILAR STRUCTURES: No masses. Contour normal. Hiatal hernia. HEART AND VASCULAR STRUCTURES: Heart normal in size. Normal vasculature. BONES: No acute findings. HARDWARE: Sternal wires. OTHER: No other significant finding. IMPRESSION: NO ACUTE RADIOGRAPHIC FINDING IN THE CHEST. TECHNICAL DOCUMENTATION: JOB ID: [id number]
[2017-04-23 20:20] LABS: ABSOLUTE BASOPHILS # (AUTO) 0.1 10^3/uL (0.0-0.2); ABSOLUTE EOSINOPHILS # (AUTO) 0.1 10^3/uL (0.0-0.6); ABSOLUTE LYMPHOCYTES (AUTO) 1.3 10^3/uL (0.5-4.7); ABSOLUTE MONOCYTES (AUTO) 0.8 10^3/uL (0.1-1.4); ABSOLUTE NEUT (AUTO) 7.7 10^3/uL (1.7-8.2); BASOPHILS % (AUTO) 0.6 % (0-2); EOSINOPHILS % (AUTO) 0.9 % (0-6); HEMATOCRIT 32.5 % (37.9-51.0); HEMOGLOBIN 11.1 g/dL (13.5-17.0); HGB HCT DIFFERENCE 0.8; MEAN CORPUSCULAR HEMOGLOBIN 32.2 pg (27.0-33.4); MEAN CORPUSCULAR HGB CONC 34.3 g/dL (32.0-36.0); MEAN CORPUSCULAR VOLUME 94 fl (80-97); MONOCYTES % (AUTO) 8.4 % (3-13); RED BLOOD COUNT 3.47 10^6/uL (4.35-5.55); RED CELL DISTRIBUTION WIDTH 13.6 % (11.5-14.0); SEGMENTED NEUTROPHILS % (AUTO) 77.1 % (42-78)
[2017-04-23 20:49] LABS: ALANINE AMINOTRANSFERASE 65 U/L (21-72); ALBUMIN 3.8 g/dL (3.5-5.0); ALCOHOL < 10 mg/dL (NONE DETECTED); ALKALINE PHOSPHATASE 76 U/L (38-126); ANION GAP 14 (5-19); ASPARTATE AMINO TRANSFERASE 35 U/L (17-59); BILIRUBIN,DIRECT 0.4 mg/dL (0.0-0.4); BILIRUBIN,TOTAL 0.5 mg/dL (0.2-1.3); BLOOD UREA NITROGEN 20 mg/dL (7-20); CALCIUM 8.1 mg/dL (8.4-10.2); CARBON DIOXIDE 29 mmol/L (22-30); CHLORIDE 101 mmol/L (98-107); CREATININE RESULT 2.74 mg/dL (0.52-1.25); GLUCOSE 114 mg/dL (75-110); MAGNESIUM 1.7 mg/dL (1.6-2.3); POTASSIUM 3.9 mmol/L (3.6-5.0); SODIUM 144.1 mmol/L (137-145); TOTAL PROTEIN 7.1 g/dL (6.3-8.2)
[2017-04-23 20:58] LABS: APPEARANCE,URINE SLIGHTLY-CLOUDY; BILIRUBIN,URINE NEGATIVE (NEGATIVE); GLUCOSE, URINE NEGATIVE (NEGATIVE); KETONES,URINE NEGATIVE (NEGATIVE); LEUKOCYTE ESTERASE,URINE SMALL (NEGATIVE); NITRITE,URINE NEGATIVE (NEGATIVE); PROTEIN,URINE 100 mg/dL (NEGATIVE); URINE SPECIFIC GRAVITY 1.011; UROBILINOGEN,URINE NEGATIVE mg/dL (<2.0)
[2017-04-23 21:10] LABS: URINE BARBITURATES SCREEN NEGATIVE; URINE METHADONE SCREEN NEGATIVE; URINE OPIATES LOW NEGATIVE; URINE PHENCYCLIDINE SCREEN NEGATIVE
[2017-04-23] MEDS ORDERED: CEFTRIAXONE 1 GM/D5W RTU 1 GM/50 ML RTUPB IV ONE (22:04)
[2017-04-23] MEDS ORDERED: AZITHROMYCIN INJ 500 MG VIAL IV ONE (22:09)
[2017-04-23 23:26] LABS: VENOUS BLOOD BASE EXCESS 4.1 mmol/L; VENOUS BLOOD HCO3 29.9 mmol/L (20-32); VENOUS BLOOD PCO2 50.1 mmHg (35-63); VENOUS BLOOD PH 7.39 (7.30-7.42)
[2017-04-24] MEDS ORDERED: IPRATROPIUM/ALBUTEROL 0.5-2.5 MG/3 ML AMPUL NEB PRN (02:08)
[2017-04-24] MEDS ORDERED: GUAIFENESIN SYRP 200 MG/10 ML UDC PO PRN (02:08)
[2017-04-24] MEDS ORDERED: INSULIN LISPRO 100 UNIT/ML 3 ML VIAL SUBCUT PRN (02:13)
[2017-04-24] MEDS ORDERED: DEXTROSE 40% GEL 15 GM TUBE PO PRN ×2 (02:13)
[2017-04-24] MEDS ORDERED: GLUCAGON,HUMAN RECOMB 1 MG INJ IM PRN (02:13)
[2017-04-24] MEDS ORDERED: DEXTROSE 50%-WATER 25 GM/50 ML DISP.SYRIN IV PRN ×2 (02:13)
[2017-04-24] MEDS ORDERED: PHARMACY COMMUNICATION ORDER MC SCH (02:15)
[2017-04-24] MEDS ORDERED: ACETAMINOPHEN 325 MG TABLET PO PRN (02:18)
[2017-04-24] MEDS ORDERED: PROMETHAZINE HCL 25 MG TABLET PO PRN (02:18)
[2017-04-24] MEDS ORDERED: CEFEPIME 1 GM/D5W RTU 1 GM/50 ML RTUPB IV ONE (02:30)
[2017-04-24] MEDS ORDERED: PREDNISONE 20 MG TABLET PO ONE (02:30)
--- NOTE | 2017-04-24 02:35 | PDOC H&P ---
History of Present Illness Admission Date/PCP: 04/23/17 22:26 Flaco Buckner MD, [place] system Nephrology Dr. Cespedes Patient complains of: Weakness and confusion History of Present Illness: TYLOR JIMENEZ is a 76 year old male with underlying non-home O2 dependent COPD, along with end-stage renal disease, on hemodialysis, admitted to our service number of times, including several days ago, for urinary tract infection, with septic shock most recently. Discharged to home on the eighth. Brought back to the emergency room by daughter after hemodialysis session was completed because of a fever of 101.2 in association with generalized weakness and confusion. Patient has been discussed with emergency room physician who evaluated the patient. Patient is oriented to year and location, but is not sure why he is in the emergency room and is able to provide no history whatsoever in terms of acute or chronic events, review of systems, personal habits, family history, etc. confused answers to basic questions. No friends or family are present. Old inpatient records are reviewed. Patient currently denies any pain. As noted above, hospitalized on our service the fifth through the eighth of this month with discharge diagnoses including septic shock due to recurrent urinary tract infection and acute encephalopathy, secondary to same. History and physical and discharge summary have been reviewed. Dictation via voice recognition software. Laboratory results are listed in [employer] and are reviewed. X-ray summary results are listed below, with full report(s) reviewed. EKG reviewed. Social history/personal habits: Per old records, . Lives with . Has children. No use of alcohol tobacco or illicit drugs. Allergies/adverse reactions are listed in [employer] and are reviewed. Home medications initially autopopulated into [employer] may not accurately reflect patient's true medications, dosages, and/or frequencies. angiography technologist to reconcile medications. Unfortunately, patient not able to provide any information related to medications/dosages/frequencies. REVIEW OF SYSTEMS: See history and present illness. No further information available this point in time. PHYSICAL EXAMINATION: 6 feet tall. 82.2 kg. BMI 24.6 kg/m. Blood pressure 107/47. Pulse 77 and regular. Respirations are 21 and unlabored. 96% saturation on room air. Temperature 99.9. Well-nourished well-developed elderly male appearing approximately his stated age. Pleasant awake alert and cooperative. Appears perhaps slightly fatigued, and perhaps to feel a bit under the weather, so to speak. Mildly anxious, without agitation. Skin is warm and dry. No grossly obvious evidence of rash in areas of skin examined. No subcutaneous nodules palpated. Small stage I decubitus, lateral aspect, right heel. ENT: Hearing grossly normal to normal conversation. Tongue midline on protrusion pink and slightly tacky. Eyes: No scleral icterus. Pupils equal and reactive to light at 4 mm. [place] conjunctivae. Neck is supple and nontender to gentle active range of motion and palpation. Midline trachea. No palpable thyroid nodule mass enlargement or tenderness. Lymphatic: No palpable cervical or clavicular nodes. Neck and lymphatic exams limited by patient body habitus. Psychiatric: Difficult to adequately evaluate. See above comments. Lungs: Auscultation reveals equal breath sounds bilaterally. No use of accessory respiratory muscles. Faintly coarse breath sounds bilaterally, with brief scant expiratory wheezing. Cardiovascular: Heart regular rate and rhythm, without gallop murmur or rub. No carotid or abdominal aortic bruits. No ankle or pedal edema. Faintly palpable dorsalis pedis pulses. Abdomen:soft somewhat distended nontender with positive bowel sounds. Unable to adequately evaluate abdomen for masses or organomegaly due to distention. Ostomy bag in place over his right lower quadrant ileal conduit; clear pale orange urine in place. Extremities: Feet are cool but dry, with acceptable capillary refill at toes. No calf tenderness to compression. No grossly obvious visual evidence of calf swelling. Gentle manipulation of lower extremities fails to reveal any obvious evidence of injury or instability to knees hips or ankles. Neurologic: Moves upper extremities grossly normally. Patellar reflexes absent. Absent Babinski. Light touch cannot be adequately evaluated due to his current mental status. Dorsiflexion and plantarflexion of feet 5 / 5 and symmetric. Past Medical History Past Medical History: Information for old records; patient unable to provide any information himself. Cardiac Medical History: Reports: Congestive Heart Failure, Coronary Artery Disease, Hyperlipidema, Hypertension, Peripheral Vascular Disease Pulmonary Medical History: Reports: Chronic Obstructive Pulmonary Disease (COPD ) - Possible Neurological Medical History: Denies: Seizures Renal/ Medical History: Reports: End Stage Renal Disease - On hemodialysis Sunday and Sunday Malignancy Medical History: Reports: Renal (Kidney) Cancer Musculoskeltal Medical History: Reports: Gout Psychiatric Medical History: Denies: Depression Infectious Medical History: Reports: Clostridium Difficile Past Surgical History Past Surgical History: Information for old records; patient unable to provide any information himself. Past Surgical History: Reports: Cardiac Catheterization, Coronary Artery Bypass Graft, Orthopedic Surgery - Right hip hemiarthroplasty August 2016, Vascular Surgery - AAA repair, Other - Nephrostomy tube placement, creation of ileal conduit, prostatectomy Social History Information Source: Emergency Med Personnel, [facility] Records Lives with: Family Smoking Status: Former Smoker Frequency of Alcohol Use: None Hx Recreational Drug Use: No Drugs: None Hx Prescription Drug Abuse: No - Advance Directive Resuscitation Status: Do Not Intubate Surrogate healthcare decision maker:: Daughter Estrellita Linn Family History Family History: Malignancy Parental Family History Reviewed: No - Patient cannot provide any information related to same. Children Family History Reviewed: No - Patient cannot provide any information related to same. Sibling(s) Family History Reviewed.: No - Patient cannot provide any information related to same. Medication/Allergy Home Medications: RX: Aspirin [Aspirin EC] 81 mg PO DAILY 04/24/17 RX: Atorvastatin Calcium [Lipitor 20 mg Tablet] 20 mg PO QHS 04/24/17 RX: Calcium Carbonate [Tums Chewable 500 mg Tab.chew] 2,000 mg PO BIDACBS RX: Folic Acid/Vitamin B Comp W-C [Nephrocaps Multiple Vitamin Capsule] 1 cap PO DAILY 04/24/17 RX: Isosorbide Dinitrate [Isordil Titradose 20 mg Tablet] 20 mg PO Q12 04/24/17 RX: Magnesium Oxide [Mag-Ox 400 mg Tablet] 400 mg PO DAILY 04/24/17 RX: Omeprazole 20 mg PO QAM 04/24/17 RX: Sodium Bicarbonate [Sodium Bicarbonate 650 mg Tablet] 650 mg PO BID Cefuroxime Axetil [Ceftin 500 mg Tablet] 500 mg PO BID #5 tablet 04/26/17 RX: Azithromycin [Zithromax] 250 mg PO DAILY #4 tablet 04/26/17 RX: Isosorbide Dinitrate [Isordil Titradose 20 mg Tablet] 10 mg PO Q12 #60 tablet 04/26/17 RX: Prednisone [Deltasone 20 mg Tablet] 20 mg PO ASDIR PRN #9 tablet 04/26/17 Allergies/Adverse Reactions: ciprofloxacin [From Cipro] Allergy (Verified 04/18/17 15:19) Physical Exam Vital Signs: Temp Pulse Resp BP Pulse Ox 99.1 F 85 20 108/59 L 92 04/23/17 22:07 04/24/17 02:12 04/24/17 00:15 04/24/17 00:01 04/24/17 00:15 Results Laboratory Results: 04/23/17 04/24/17 23:15 00:30 VBG pH 7.39 VBG pCO2 50.1 VBG HCO3 29.9 VBG Base Excess 4.1 Lactic Acid 2.5 H Impressions: Chest X-Ray 04/23/17 19:04 IMPRESSION: NO ACUTE RADIOGRAPHIC FINDING IN THE CHEST. Assessment & Plan - Diagnosis (1) Decubitus ulcer of right heel, stage 1 Is this a current diagnosis for this admission?: Yes Plan: Innovative mattress. Turn every 2 hours. Dietitian consult. (2) COPD exacerbation Is this a current diagnosis for this admission?: Yes Plan: Patient will be admitted under COPD exacerbation protocol. Incentive spirometry twice a day. Scheduled DuoNeb's. As needed albuterol nebs. Prednisone. Prevacid for gastritis prophylaxis Antibiotics will consist of cefepime and intravenous Zithromax. Pharmacy to assist with dosing I have strongly encouraged patient not to get out of bed without notifying staff , to avoid a fall with injury. Knee high SCDs for DVT prophylaxis, along with subcutaneous heparin. Impression and plans were discussed with patient who concurs. Time spent in evaluation and management of patient: 58 minutes. (3) DNI (do not intubate) Is this a current diagnosis for this admission?: Yes Plan: Implications of DO NOT INTUBATE status discussed by phone with daughter Kinjal Linn, at 1:54 AM, April 24, 2017. Discussed in layperson's terms. Implications understood. Daughter is the health care decision maker. Her conversation is lucid and appropriate. She desires DO NOT INTUBATE status, as has patient and in the past, including recent stay at our facility earlier this month. Will honor patient wishes. (4) End-stage renal disease on hemodialysis Is this a current diagnosis for this admission?: Yes Plan: Nephrology consult. (5) Hyperlipidemia Qualifiers: Hyperlipidemia type: unspecified Qualified Code(s): E78.5 - Hyperlipidemia , unspecified Is this a current diagnosis for this admission?: Yes Plan: Resume home medications as appropriate once these have been determined and reviewed. (6) UTI (urinary tract infection) Qualifiers: Urinary tract infection type: site unspecified Is this a current diagnosis for this admission?: Yes Plan: Recent culture results reviewed. Respiratory antibiotic should be adequate. - Time Time Spent: 50 to 70 Minutes Medications reviewed and adjusted accordingly: No - Patient not able to provide any information related to same. Anticipated discharge: Home Within: within 72 hours - Inpatient Certification Based on my medical assessment, after consideration of the patient's comorbidities, presenting symptoms, or acuity I expect that the services needed warrant INPATIENT care.: Yes I certify that my determination is in accordance with my understanding of Medicare's requirements for reasonable and necessary INPATIENT services [42 CFR 412.3e].: Yes Medical Necessity: Significant Comorbidiites Make Outpatient Treatment Too Risky , Need For Continuous Telemetry Monitoring, Need for Nebulizer Therapy and Monitoring of Response, Need for IV Antibiotics, Risk of Complication if Not Cared For in Hospital Post Hospital Care: D/C or Transfer Summary
[2017-04-24] MEDS: LANSOPRAZOLE 30 MG TAB.RAP.DR PO SCH (06:01)
[2017-04-24 07:09] LABS: ABSOLUTE EOSINOPHILS # (AUTO) 0.1 10^3/uL (0.0-0.6); ABSOLUTE LYMPHOCYTES (AUTO) 0.9 10^3/uL (0.5-4.7); ABSOLUTE MONOCYTES (AUTO) 0.4 10^3/uL (0.1-1.4); BASOPHILS % (AUTO) 0.5 % (0-2); EOSINOPHILS % (AUTO) 0.9 % (0-6); HEMATOCRIT 28.9 % (37.9-51.0); HGB HCT DIFFERENCE 1.1; LYMPHOCYTES % (AUTO) 11.1 % (13-45); MEAN CORPUSCULAR HEMOGLOBIN 32.2 pg (27.0-33.4); MEAN CORPUSCULAR HGB CONC 34.5 g/dL (32.0-36.0); MEAN CORPUSCULAR VOLUME 94 fl (80-97); MONOCYTES % (AUTO) 4.8 % (3-13); RED BLOOD COUNT 3.09 10^6/uL (4.35-5.55); RED CELL DISTRIBUTION WIDTH 13.7 % (11.5-14.0); SEGMENTED NEUTROPHILS % (AUTO) 82.7 % (42-78); WHITE BLOOD COUNT 8.4 10^3/uL (4.0-10.5)
[2017-04-24 07:28] LABS: ANION GAP 13 (5-19); BLOOD UREA NITROGEN 24 mg/dL (7-20); CALCIUM 7.6 mg/dL (8.4-10.2); CARBON DIOXIDE 26 mmol/L (22-30); CHLORIDE 102 mmol/L (98-107); CREATININE RESULT 3.19 mg/dL (0.52-1.25); GLUCOSE 130 mg/dL (75-110); POTASSIUM 3.9 mmol/L (3.6-5.0); SODIUM 140.8 mmol/L (137-145)
--- NOTE | 2017-04-24 08:10 | EKG REPORT ---
SEVERITY:- NORMAL ECG - SINUS RHYTHM : Confirmed by: Brooks Edouard MD 24-Apr-2017 08:10:02
[2017-04-24] MEDS ORDERED: CEFEPIME 1 GM/D5W RTU 1 GM/50 ML RTUPB IV SCH (10:00)
[2017-04-24] MEDS: PREDNISONE 20 MG TABLET PO SCH (10:10)
[2017-04-24] MEDS ORDERED: ONDANSETRON HCL INJ/PF 4 MG/2 ML SDV IV PRN (12:48)
[2017-04-24] MEDS: HEPARIN SOD (PORCINE) 5,000 UNIT/ML 1 ML SYRINGE SUBCUT SCH ×2 (12:50→22:46)
[2017-04-24] MEDS ORDERED: NORMAL SALINE 1000 ML 250 ML IV ONE (12:57)
--- NOTE | 2017-04-24 17:33 | PDOC PROGRESS REPORT ---
Subjective Progress Note for:: 04/24/17 Subjective:: Pt seen resting in bed comfortably at present. Per nursing, he has had some nausea and vomiting today. He denies fever, chills, abd pain, diarrhea, and constipation. Pt reports that he feels fine otherwise and does not know why he was readmitted after dialysis yesterday. He has no other questions or concerns today. ROS as above and otherwise negative. Physical Exam Vital Signs: Temp Pulse Resp BP Pulse Ox 97.7 F 61 18 130/55 H 97 04/24/17 16:37 04/24/17 16:37 04/24/17 16:37 04/24/17 16:37 04/24/17 16:37 Intake & Output 04/23/17 04/24/17 04/25/17 06:59 06:59 06:59 Intake Total 50 337 Output Total 150 Balance 50 187 Weight 80.4 kg 80.4 kg General appearance: PRESENT: no acute distress, hard of hearing, well-developed , well-nourished Head exam: PRESENT: atraumatic, normocephalic Eye exam: PRESENT: conjunctiva pink, EOMI, PERRLA. ABSENT: scleral icterus Ear exam: PRESENT: normal external ear exam Mouth exam: PRESENT: moist, tongue midline Teeth exam: PRESENT: poor dentation Neck exam: ABSENT: carotid bruit, JVD, lymphadenopathy, thyromegaly Respiratory exam: PRESENT: clear to auscultation jenni, rhonchi - RML/RLL coarse breath sounds., symmetrical, unlabored. ABSENT: rales, tachypnea, wheezes Cardiovascular exam: PRESENT: RRR. ABSENT: diastolic murmur, rubs, systolic murmur Pulses: PRESENT: normal dorsalis pedis pul Vascular exam: PRESENT: normal capillary refill GI/Abdominal exam: PRESENT: normal bowel sounds, soft. ABSENT: distended, guarding, mass, organolmegaly, rebound, tenderness Rectal exam: PRESENT: deferred Extremities exam: PRESENT: full ROM. ABSENT: calf tenderness, clubbing, pedal edema Neurological exam: PRESENT: alert, awake, oriented to person, oriented to place , oriented to time, oriented to situation, CN II-XII grossly intact. ABSENT: motor sensory deficit Psychiatric exam: PRESENT: appropriate affect, normal mood. ABSENT: homicidal ideation, suicidal ideation Skin exam: PRESENT: dry, intact, warm. ABSENT: cyanosis, rash Results Laboratory Results: 04/24/17 06:32 04/24/17 06:32 04/24/17 04/24/17 06:32 06:32 WBC 8.4 RBC 3.09 L Hgb 10.0 L Hct 28.9 L MCV 94 MCH 32.2 MCHC 34.5 RDW 13.7 Plt Count 148 L Seg Neutrophils % 82.7 H Lymphocytes % 11.1 L Monocytes % 4.8 Eosinophils % 0.9 Basophils % 0.5 Absolute Neutrophils 7.0 Absolute Lymphocytes 0.9 Absolute Monocytes 0.4 Absolute Eosinophils 0.1 Absolute Basophils 0.0 Sodium 140.8 Potassium 3.9 Chloride 102 Carbon Dioxide 26 Anion Gap 13 BUN 24 H Creatinine 3.19 H Est GFR ( Amer) 23 L Est GFR (Non-Af Amer) 19 L Glucose 130 H Calcium 7.6 L Impressions: Chest X-Ray 04/23/17 19:04 IMPRESSION: NO ACUTE RADIOGRAPHIC FINDING IN THE CHEST. Assessment & Plan - Diagnosis (1) Nausea & vomiting Qualifiers: Vomiting type: unspecified Is this a current diagnosis for this admission?: Yes Plan: 1- Clear liquids; advance diet slowly as tolerated 2- Zofran prn 3 - Gentle IV hydration w/ 250 ml NS (2) COPD exacerbation Is this a current diagnosis for this admission?: Yes Plan: 1- Incentive spirometry twice dauly 2- Scheduled duonebs and prn albuterol tx 3- PO prednisone 4- Continue IV abx; will narrow as cultures result. (3) Decubitus ulcer of right heel, stage 1 Is this a current diagnosis for this admission?: Yes Plan: Innovative mattress Turn q2 hours, appreciate dietary recommendations. (4) End-stage renal disease on hemodialysis Is this a current diagnosis for this admission?: Yes Plan: M-W-F dialysis 1- Appreciate nephrology consultation (5) Hyperlipidemia Qualifiers: Hyperlipidemia type: unspecified Qualified Code(s): E78.5 - Hyperlipidemia , unspecified Is this a current diagnosis for this admission?: Yes Plan: Resume home medication: Atrovastatin (6) UTI (urinary tract infection) Qualifiers: Urinary tract infection type: site unspecified Is this a current diagnosis for this admission?: Yes Plan: Previous cultures reviewed: lamas sensitive e. coli. Continue IV Azithromycin and Cefepim as above. - Time Time Spent with patient: 25-34 minutes Medications reviewed and adjusted accordingly: Yes
--- NOTE | 2017-04-24 18:42 | PDOC CONSULTATION ---
Consultation Consult Date: 04/24/17 Attending physician:: PATTI SUGGS Consult reason:: I was asked by the hospitalist service to see the patient to supervise dialysis while here in the hospital. 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 difficile infection status post fecal transplant who was readmitted last night because of fever. Patient was just recently discharged last Sunday from hospitalization last week due to urinary tract infection and acute encephalopathy. Yesterday the patient went to his usual scheduled hemodialysis at [facility] [place]. According to the [facility] [place] nurses he did well and did not really have any complaints. He was afebrile and tolerated the treatment. After dialysis, apparently when the daughter took the patient home he developed a temperature of 101.2 and was brought back to the emergency room. Today when I walked in the room the patient was teary-eyed and started crying. When asked why he was crying, could not really tell me anything. He denies any pain or shortness of breath. He denies any chest pains. He was noted to be coughing according to the nurse. His blood pressure was relatively low earlier today so he was given 250 mL of IV normal saline bolus. Aside from that the patient really does not say anything much. Past Medical History Cardiac Medical History: Reports: Coronary Artery Disease, Hyperlipidemia, Hypertension-primary, Peripheral Vascular Disease Pulmonary Medical History: Reports: Chronic Obstructive Pulmonary Disease (COPD ) - Possible EENT Medical History: Reports: Ears - Bilateral hearing loss Renal/ Medical History: Reports: End Stage Renal Disease - On hemodialysis Sunday and Sunday, Hyperphosphatemia, Metabolic Acidosis, Recurrent UTI Malignancy Medical History: Reports: Renal (Kidney) Cancer - Bladder cancer and prostate cancer Musculoskeltal Medical History: Reports: Gout Psychiatric Medical History: Denies: Depression Infectious Medical History: Reports: 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 Past Surgical History Past Surgical History: Reports: Cardiac Catheterization, Coronary Artery Bypass Graft, Cystectomy, Dialysis Access Surgery AVF, Orthopedic Surgery - Right hip hemiarthroplasty August 2016, Vascular Surgery - AAA repair, Other - Nephrostomy tube placement, creation of ileal conduit, prostatectomy Social History Information Source: [facility] Records Lives with: Family, Spouse/Significant other Smoking Status: Former Smoker Frequency of Alcohol Use: None Hx Recreational Drug Use: No Drugs: None Hx Prescription Drug Abuse: No - Advance Directive Resuscitation Status: Do Not Intubate Family History Family History: Malignancy - Bone cancer in his father Parental Family History Reviewed: Yes Children Family History Reviewed: Unknown Sibling(s) Family History Reviewed.: Unknown Medication/Allergy Home Medications: Aspirin [Aspirin EC] 81 mg PO DAILY 04/24/17 Atorvastatin Calcium [Lipitor 20 mg Tablet] 20 mg PO QHS 04/24/17 Calcium Carbonate [Tums Chewable 500 mg Tab.chew] 2,000 mg PO BIDACBS 04/24/17 Colchicine [Colchicine 0.6 mg Tablet] 0.6 mg PO DAILYP PRN 04/24/17 Folic Acid/Vitamin B Comp W-C [Nephrocaps Multiple Vitamin Capsule] 1 cap PO DAILY 04/24/17 Isosorbide Dinitrate [Isordil Titradose 20 Mg Tablet] 20 mg PO Q12 04/24/17 L. Rhamnosus GG/Inulin [Culturelle Capsule] 1 each PO DAILY 04/24/17 Magnesium Oxide [Mag-Ox 400 mg Tablet] 400 mg PO DAILY 04/24/17 Omeprazole 20 mg PO QAM 04/24/17 Sodium Bicarbonate [Sodium Bicarbonate 650 mg Tablet] 650 mg PO BID 04/24/17 Allergies/Adverse Reactions: ciprofloxacin [From Cipro] Allergy (Verified 04/18/17 15:19) Review of Systems All systems: reviewed and no additional remarkable complaints except as stated Review of Systems: Constitutional: ABSENT: chills, fatigue, fever(s), headache(s), weight gain, weight loss Eyes: ABSENT: visual disturbances Ears: ABSENT: hearing changes Cardiovascular: ABSENT: chest pain, dyspnea on exertion, edema, orthropnea, palpitations Respiratory: ABSENT: cough, dyspnea, hemoptysis Gastrointestinal: ABSENT: abdominal pain, constipation, diarrhea, hematemesis, hematochezia, nausea, vomiting Genitourinary: ABSENT: dysuria, hematuria Musculoskeletal: ABSENT: joint swelling Integumentary: ABSENT: rash, wounds Neurological: ABSENT: abnormal gait, abnormal speech, confusion, dizziness, focal weakness, numbness, syncope Psychiatric: ABSENT: anxiety, depression Endocrine: ABSENT: cold intolerance, heat intolerance, polydipsia, polyuria Hematologic/Lymphatic: ABSENT: easy bleeding, easy bruising, lymphadenopathy Physical Exam Vital Signs: Temp Pulse Resp BP Pulse Ox 97.7 F 61 18 130/55 H 97 04/24/17 16:37 04/24/17 16:37 04/24/17 16:37 04/24/17 16:37 04/24/17 16:37 Intake & Output 04/23/17 04/24/17 04/25/17 06:59 06:59 06:59 Intake Total 50 337 Output Total 150 Balance 50 187 Weight 80.4 kg 80.4 kg Exam: General appearance: no acute distress, cooperative, well-developed, well- nourished Head exam: PRESENT: atraumatic, normocephalic Eye exam: PRESENT: Conjunctiva slightly pale, EOMI, PERRLA. ABSENT: conjunctival injection, scleral icterus Mouth exam: PRESENT: moist, neck supple, tongue midline Neck exam: PRESENT: full ROM. ABSENT: carotid bruit, JVD, lymphadenopathy, thyromegaly Respiratory exam: PRESENT: Diminished to auscultation bilaterally. ABSENT: rales, rhonchi, stridor, wheezes Cardiovascular exam: PRESENT: RRR, +S1, +S2. ABSENT: systolic murmur Pulses: PRESENT: normal radial pulses, normal dorsalis pedis pulses GI/Abdominal exam: PRESENT: normal bowel sounds, soft. Urostomy bag in the right lower quadrant ABSENT: guarding, mass, tenderness Rectal exam: deferred Extremities exam: PRESENT: full ROM. ABSENT: calf tenderness, pedal edema Musculoskeletal: PRESENT: full ROM. ABSENT: deformity Neurological exam: PRESENT: alert, Awake, Oriented to person, Oriented to place , Oriented to time, reflexes normal, CN II-XII grossly intact. ABSENT: motor sensory deficit Psychiatric exam: PRESENT: Patient is currently tearful and sad ABSENT: homicidal ideation, suicidal ideation Skin exam: PRESENT: intact, dry, warm. ABSENT: rash Results Laboratory Results: 04/24/17 06:32 04/24/17 06:32 04/24/17 04/24/17 06:32 06:32 WBC 8.4 RBC 3.09 L Hgb 10.0 L Hct 28.9 L MCV 94 MCH 32.2 MCHC 34.5 RDW 13.7 Plt Count 148 L Seg Neutrophils % 82.7 H Lymphocytes % 11.1 L Monocytes % 4.8 Eosinophils % 0.9 Basophils % 0.5 Absolute Neutrophils 7.0 Absolute Lymphocytes 0.9 Absolute Monocytes 0.4 Absolute Eosinophils 0.1 Absolute Basophils 0.0 Sodium 140.8 Potassium 3.9 Chloride 102 Carbon Dioxide 26 Anion Gap 13 BUN 24 H Creatinine 3.19 H Est GFR ( Amer) 23 L Est GFR (Non-Af Amer) 19 L Glucose 130 H Calcium 7.6 L Impressions: Chest X-Ray 04/23/17 19:04 IMPRESSION: NO ACUTE RADIOGRAPHIC FINDING IN THE CHEST. Assessment & Plan - Diagnosis (1) UTI (urinary tract infection) Qualifiers: Urinary tract infection type: site unspecified Is this a current diagnosis for this admission?: Yes Plan: Currently on antibiotics. (2) ESRD (end stage renal disease) on dialysis Is this a current diagnosis for this admission?: Yes Plan: We will plan for dialysis in the morning. (3) Anemia in chronic kidney disease (CKD) Qualifiers: Chronic kidney disease stage: on chronic dialysis Qualified Code(s): N18.6 - End stage renal disease; D63.1 - Anemia in chronic kidney disease; D63.1 - Anemia in chronic kidney disease; Z99.2 - Dependence on renal dialysis; Z99.2 - Dependence on renal dialysis; Z99.2 - Dependence on renal dialysis; Z99.2 - Dependence on renal dialysis Is this a current diagnosis for this admission?: Yes - Notes Notes: Thank you for this consultation. I will supervise dialysis while here in the hospital. - Time Time Spent: 30 to 50 Minutes
[2017-04-24] MEDS ORDERED: ISOSORBIDE DINITRATE 20 MG TABLET PO SCH (22:00)
[2017-04-24] MEDS: CEFEPIME HCL 1 GM in DEXTROSE 5%-WATER 50 ML IV SCH (22:48)
[2017-04-24] MEDS: SODIUM BICARBONATE 650 MG TABLET PO SCH (22:54)
[2017-04-24] MEDS: AZITHROMYCIN 500 MG in DEXTROSE 5%-WATER 250 ML IV SCH (22:54)
[2017-04-24] MEDS: ATORVASTATIN CALCIUM 20 MG TABLET PO SCH (22:55)
[2017-04-25] MEDS ORDERED: NORMAL SALINE 1000 ML 1,000 ML IV PRN (05:00)
[2017-04-25 05:04] LABS: ABSOLUTE BASOPHILS # (AUTO) 0.1 10^3/uL (0.0-0.2); ABSOLUTE LYMPHOCYTES (AUTO) 1.4 10^3/uL (0.5-4.7); ABSOLUTE MONOCYTES (AUTO) 0.8 10^3/uL (0.1-1.4); ABSOLUTE NEUT (AUTO) 12.1 10^3/uL (1.7-8.2); BASOPHILS % (AUTO) 0.4 % (0-2); HEMOGLOBIN 9.6 g/dL (13.5-17.0); HGB HCT DIFFERENCE 0.8; LYMPHOCYTES % (AUTO) 9.5 % (13-45); MEAN CORPUSCULAR HGB CONC 34.4 g/dL (32.0-36.0); MEAN CORPUSCULAR VOLUME 93 fl (80-97); MONOCYTES % (AUTO) 5.6 % (3-13); RED BLOOD COUNT 3.01 10^6/uL (4.35-5.55); RED CELL DISTRIBUTION WIDTH 13.6 % (11.5-14.0); SEGMENTED NEUTROPHILS % (AUTO) 84.5 % (42-78); WHITE BLOOD COUNT 14.3 10^3/uL (4.0-10.5)
[2017-04-25 05:24] LABS: ANION GAP 14 (5-19); CARBON DIOXIDE 24 mmol/L (22-30); CHLORIDE 102 mmol/L (98-107); CREATININE RESULT 4.17 mg/dL (0.52-1.25); GLUCOSE 147 mg/dL (75-110); POTASSIUM 4.1 mmol/L (3.6-5.0); SODIUM 140.4 mmol/L (137-145)
[2017-04-25 05:26] LABS: CALCIUM 7.6 mg/dL (8.4-10.2)
[2017-04-25 05:35] LABS: BLOOD UREA NITROGEN 45 mg/dL (7-20)
[2017-04-25] MEDS: LANSOPRAZOLE 30 MG TAB.RAP.DR PO SCH (05:44)
--- NOTE | 2017-04-25 08:08 | EKG REPORT ---
SEVERITY:- ABNORMAL ECG - SINUS RHYTHM VENTRICULAR PREMATURE COMPLEX PROLONGED QT INTERVAL : Confirmed by: Brooks Edouard MD 25-Apr-2017 08:06:43
[2017-04-25] MEDS: CALCIUM CARBONATE 500 MG TAB.CHEW PO SCH ×2 (08:36→18:26)
[2017-04-25] MEDS ORDERED: ISOSORBIDE DINITRATE 20 MG TABLET PO SCH (11:16)
[2017-04-25] MEDS: ASPIRIN 81 MG TABLET, ENT COATED PO SCH (11:25)
[2017-04-25] MEDS: HEPARIN SOD (PORCINE) 5,000 UNIT/ML 1 ML SYRINGE SUBCUT SCH ×2 (11:25→21:37)
[2017-04-25] MEDS: FOLIC ACID/VITAMIN B COMP W-C CAPSULE PO SCH (11:25)
[2017-04-25] MEDS: SODIUM BICARBONATE 650 MG TABLET PO SCH (11:26)
[2017-04-25] MEDS: PREDNISONE 20 MG TABLET PO SCH (11:26)
[2017-04-25] MEDS: MAGNESIUM OXIDE 400 MG TABLET PO SCH (11:26)
--- NOTE | 2017-04-25 12:58 | PDOC PROGRESS REPORT ---
Subjective Progress Note for:: 04/25/17 Subjective:: Pt seen resting in bed comfortably. He is slightly tearful and reports that he is "homesick." Per nursing, pt's was recently diagnosed with breast CA and he has been tearful w/ regard to her health. He states that his nausea and vomiting have resolved. He denies fever, chills, abd pain, diarrhea, and constipation. Pt reports that he feels fine otherwise and is anticipating dialysis later today. He has no other questions or concerns today. ROS as above and otherwise negative. Physical Exam Vital Signs: Temp Pulse Resp BP Pulse Ox 97.5 F 56 L 18 120/55 L 100 04/25/17 11:42 04/25/17 11:42 04/25/17 11:42 04/25/17 11:42 04/25/17 11:42 Intake & Output 04/24/17 04/25/17 04/26/17 06:59 06:59 06:59 Intake Total 50 1292 Output Total 150 Balance 50 1142 Weight 80.4 kg 82.7 kg General appearance: PRESENT: no acute distress, hard of hearing, well-developed , well-nourished Head exam: PRESENT: atraumatic, normocephalic Eye exam: PRESENT: conjunctiva pink, EOMI, PERRLA. ABSENT: scleral icterus Ear exam: PRESENT: normal external ear exam Mouth exam: PRESENT: moist, tongue midline Neck exam: ABSENT: carotid bruit, JVD, lymphadenopathy, thyromegaly Respiratory exam: PRESENT: clear to auscultation jenni, decreased breath sounds - Bibasilar; Rt>Lt, symmetrical, unlabored. ABSENT: rales, rhonchi, wheezes Cardiovascular exam: PRESENT: RRR. ABSENT: diastolic murmur, rubs, systolic murmur Pulses: PRESENT: normal dorsalis pedis pul Vascular exam: PRESENT: normal capillary refill GI/Abdominal exam: PRESENT: normal bowel sounds, soft. ABSENT: distended, guarding, mass, organolmegaly, rebound, tenderness Rectal exam: PRESENT: deferred Extremities exam: PRESENT: full ROM. ABSENT: calf tenderness, clubbing, pedal edema Neurological exam: PRESENT: alert, awake, oriented to person, oriented to place , oriented to time, oriented to situation, CN II-XII grossly intact. ABSENT: motor sensory deficit Psychiatric exam: PRESENT: appropriate affect, normal mood - appropriately sad mood w/ regard to 's health. ABSENT: homicidal ideation, suicidal ideation Skin exam: PRESENT: dry, intact, warm. ABSENT: cyanosis, rash Results Laboratory Results: 04/25/17 04:49 04/25/17 04:49 04/25/17 04/25/17 04/25/17 04:49 04:49 04:49 WBC 14.3 H RBC 3.01 L Hgb 9.6 L Hct 28.0 L MCV 93 MCH 32.0 MCHC 34.4 RDW 13.6 Plt Count 163 Seg Neutrophils % 84.5 H Lymphocytes % 9.5 L Monocytes % 5.6 Eosinophils % 0.0 Basophils % 0.4 Absolute Neutrophils 12.1 H Absolute Lymphocytes 1.4 Absolute Monocytes 0.8 Absolute Eosinophils 0.0 Absolute Basophils 0.1 Sodium 140.4 Potassium 4.1 Chloride 102 Carbon Dioxide 24 Anion Gap 14 BUN 45 H D Creatinine 4.17 H Est GFR ( Amer) 17 L Est GFR (Non-Af Amer) 14 L Glucose 147 H Lactic Acid 1.1 Calcium 7.6 L Impressions: Chest X-Ray 04/23/17 19:04 IMPRESSION: NO ACUTE RADIOGRAPHIC FINDING IN THE CHEST. Assessment & Plan - Diagnosis (1) COPD exacerbation Is this a current diagnosis for this admission?: Yes Plan: 1- Incentive spirometry twice dauly 2- Duoneb prn 3- PO prednisone 4- Continue IV abx; will narrow as cultures result. BCx: NGTD (2) End-stage renal disease on hemodialysis Is this a current diagnosis for this admission?: Yes Plan: M-W-F dialysis 1- Appreciate nephrology consultation 2- Planned dialysis today (3) UTI (urinary tract infection) Qualifiers: Urinary tract infection type: site unspecified Is this a current diagnosis for this admission?: Yes Plan: Previous cultures reviewed: lamas sensitive e. coli. 1- Continue IV Azithromycin and Cefepim as above. (4) Hypotension Qualifiers: Hypotension type: unspecified hypotension type Qualified Code(s): I95.9 - Hypotension, unspecified Is this a current diagnosis for this admission?: Yes Plan: Patient with persistently low blood pressures. Home medication, isosorbide, reviewed and adjusted with holding parameters. BP did improve slightly yesterday after a 250 mL normal saline bolus. Will monitor closely for postdialysis hypotension. (5) Hyperlipidemia Qualifiers: Hyperlipidemia type: unspecified Qualified Code(s): E78.5 - Hyperlipidemia , unspecified Is this a current diagnosis for this admission?: Yes Plan: Continue home medication: Atrovastatin (6) Decubitus ulcer of right heel, stage 1 Is this a current diagnosis for this admission?: Yes Plan: Innovative mattress, turn q2 hours, appreciate dietary recommendations. (7) Nausea & vomiting Qualifiers: Vomiting type: unspecified Is this a current diagnosis for this admission?: Yes Plan: Resolved. 1- Zofran prn - Time Time Spent with patient: 25-34 minutes Medications reviewed and adjusted accordingly: Yes Anticipated discharge: Home Within: within 72 hours
[2017-04-25] MEDS ORDERED: EPOETIN ALFA INJ 20000 UNIT/1 ML VIAL (RENAL) IV ONE (16:43)
--- NOTE | 2017-04-25 16:56 | PDOC PROGRESS REPORT ---
Subjective Progress Note for:: 04/25/17 Subjective:: I am seeing the patient on dialysis now. This seems to be a little bit more calm and not tearful today. When I asked him about what happened yesterday when I caught him crying he said he could not remember that. He is tolerating dialysis well without any problems. He tells me he is eating good. He denies any shortness of breath. He denies any nausea nor vomiting. Physical Exam Vital Signs: Temp Pulse Resp BP Pulse Ox 97.5 F 61 18 120/55 L 100 04/25/17 11:42 04/25/17 14:00 04/25/17 11:42 04/25/17 11:42 04/25/17 11:42 Intake & Output 04/24/17 04/25/17 04/26/17 06:59 06:59 06:59 Intake Total 50 1292 Output Total 150 Balance 50 1142 Weight 80.4 kg 82.7 kg Vitals during dialysis: Blood pressure 116/52, pulse rate of 58, blood flow rate 450 mL/min, dialysate flow rate in 800 mL/min. Exam: General appearance: PRESENT: no acute distress, cooperative, well-developed, well-nourished Head exam: PRESENT: atraumatic, normocephalic Eye exam: PRESENT: conjunctiva pale, PERRLA. ABSENT: scleral icterus Neck exam: ABSENT: JVD Respiratory exam: PRESENT: Diminished breath sounds. ABSENT: crackles, rales, rhonchi, unlabored, wheezes Cardiovascular exam: PRESENT: Regular rate rhythm -+S1, +S2. ABSENT: diastolic murmur, systolic murmur GI/Abdominal exam: PRESENT: normal bowel sounds, soft. ABSENT: guarding, mass, tenderness Extremities exam: ABSENT: No edema Neurological exam: PRESENT: alert, awake, oriented to person, place and time. Skin exam: PRESENT: dry, warm, Results Laboratory Results: 04/25/17 04:49 04/25/17 04:49 04/25/17 04/25/17 04/25/17 04:49 04:49 04:49 WBC 14.3 H RBC 3.01 L Hgb 9.6 L Hct 28.0 L MCV 93 MCH 32.0 MCHC 34.4 RDW 13.6 Plt Count 163 Seg Neutrophils % 84.5 H Lymphocytes % 9.5 L Monocytes % 5.6 Eosinophils % 0.0 Basophils % 0.4 Absolute Neutrophils 12.1 H Absolute Lymphocytes 1.4 Absolute Monocytes 0.8 Absolute Eosinophils 0.0 Absolute Basophils 0.1 Sodium 140.4 Potassium 4.1 Chloride 102 Carbon Dioxide 24 Anion Gap 14 BUN 45 H D Creatinine 4.17 H Est GFR ( Amer) 17 L Est GFR (Non-Af Amer) 14 L Glucose 147 H Lactic Acid 1.1 Calcium 7.6 L Impressions: Chest X-Ray 04/23/17 19:04 IMPRESSION: NO ACUTE RADIOGRAPHIC FINDING IN THE CHEST. Assessment & Plan - Diagnosis (1) ESRD (end stage renal disease) on dialysis Is this a current diagnosis for this admission?: Yes Plan: We are doing dialysis today for 3 hours, using the patient's AV fistula, with 3 potassium bath, blood flow rate of 450 mL per minute, dialysate flow rate of 800 mL per minute, ultrafiltration 1 L only as tolerated, no heparin and Procrit with 10,000 units during dialysis intravenously. Patient is being monitored toward during dialysis. We will continue to supervise dialysis while here in the hospital. (2) UTI (urinary tract infection) Qualifiers: Urinary tract infection type: site unspecified Is this a current diagnosis for this admission?: Yes Plan: Currently on antibiotics. (3) Anemia in chronic kidney disease (CKD) Qualifiers: Chronic kidney disease stage: on chronic dialysis Qualified Code(s): N18.6 - End stage renal disease; D63.1 - Anemia in chronic kidney disease; D63.1 - Anemia in chronic kidney disease; Z99.2 - Dependence on renal dialysis; Z99.2 - Dependence on renal dialysis; Z99.2 - Dependence on renal dialysis; Z99.2 - Dependence on renal dialysis Is this a current diagnosis for this admission?: Yes Plan: We will give Procrit during dialysis as needed. (4) Hypocalcemia Is this a current diagnosis for this admission?: Yes Plan: Change dialysate bath to contain 3.0 calcium. (5) Hypotension Qualifiers: Hypotension type: unspecified hypotension type Qualified Code(s): I95.9 - Hypotension, unspecified Is this a current diagnosis for this admission?: Yes Plan: We will increase his dry weight to 81 kg. (6) COPD (chronic obstructive pulmonary disease) Qualifiers: COPD type: unspecified COPD Qualified Code(s): J44.9 - Chronic obstructive pulmonary disease, unspecified Is this a current diagnosis for this admission?: Yes - Time Time with patient: 15-25 minutes
[2017-04-25] MEDS ORDERED: EPOETIN ALFA 10,000 UNIT in SYRINGE, DISPOSABLE, 1 EACH IV ONE (17:30)
[2017-04-25] MEDS: CEFEPIME HCL 1 GM in DEXTROSE 5%-WATER 50 ML IV SCH (21:33)
[2017-04-25] MEDS: ISOSORBIDE DINITRATE 20 MG TABLET PO SCH (21:34)
[2017-04-25] MEDS: ATORVASTATIN CALCIUM 20 MG TABLET PO SCH (21:35)
[2017-04-25] MEDS: AZITHROMYCIN 500 MG in DEXTROSE 5%-WATER 250 ML IV SCH (21:37)
[2017-04-26] MEDS: LANSOPRAZOLE 30 MG TAB.RAP.DR PO SCH (05:30)
[2017-04-26 06:13] LABS: HEMOGLOBIN 10.2 g/dL (13.5-17.0); HGB HCT DIFFERENCE 0.6; MEAN CORPUSCULAR HGB CONC 34.1 g/dL (32.0-36.0); MEAN CORPUSCULAR VOLUME 94 fl (80-97); RED BLOOD COUNT 3.19 10^6/uL (4.35-5.55); RED CELL DISTRIBUTION WIDTH 13.8 % (11.5-14.0); WHITE BLOOD COUNT 12.4 10^3/uL (4.0-10.5)
[2017-04-26] MEDS: CALCIUM CARBONATE 500 MG TAB.CHEW PO SCH (09:12)
[2017-04-26] MEDS: HEPARIN SOD (PORCINE) 5,000 UNIT/ML 1 ML SYRINGE SUBCUT SCH (09:12)
[2017-04-26] MEDS: ASPIRIN 81 MG TABLET, ENT COATED PO SCH (09:13)
[2017-04-26] MEDS: ISOSORBIDE DINITRATE 20 MG TABLET PO SCH (09:13)
[2017-04-26] MEDS: PREDNISONE 20 MG TABLET PO SCH (09:15)
[2017-04-26] MEDS: MAGNESIUM OXIDE 400 MG TABLET PO SCH (09:16)
[2017-04-26] MEDS: FOLIC ACID/VITAMIN B COMP W-C CAPSULE PO SCH (09:16)
--- NOTE | 2017-04-26 10:09 | PDOC DISCHARGE SUMMARY ---
General - Admit/Disc Date/PCP Admission Date/Primary Care Provider: 04/24/17 02:08 SHAE GREEN MD Discharge Date: 04/26/17 - Discharge Diagnosis (1) COPD exacerbation Is this a current diagnosis for this admission?: Yes Summary: Pt treated with insentive spirometry, scheduled and prn nebs, PO prednisone, and antibiotics for presumed pneumonia based on clinical exam. Pt responded well with quick resolution of symptoms. His fever and dyspnea have resolved. He will be discharged home on azithromycin and ceftin to complete course of therapy for pneumonia, as well as, a steroid taper. (2) UTI (urinary tract infection) Is this a current diagnosis for this admission?: Yes Summary: Pt with lamas-sensitive E. coli; covered by antibiotics as above. (3) Hypotension Is this a current diagnosis for this admission?: Yes Summary: BP as low as 83/54; responded well to a 250ml NS bolus and medication adjustment. Nephrology aware and made adjustments to dry weight. Will be discharged on lower dosed isosorbide. (4) Hyperlipidemia Is this a current diagnosis for this admission?: Yes (5) Decubitus ulcer of right heel, stage 1 Is this a current diagnosis for this admission?: Yes (6) Nausea & vomiting Is this a current diagnosis for this admission?: Yes Summary: Pt with nausea and emesis x3 on day one of admission, now resolved. Did well with zofran. Hydrated with IVF. (7) End-stage renal disease on hemodialysis Is this a current diagnosis for this admission?: Yes Summary: Pt on a -- dialysis schedule; did receive dialysis yesterday on schedule. - Additional Information Resuscitation Status: Do Not Intubate Discharge Diet: Other (Comments) - Renal Discharge Activity: Activity As Tolerated, Balance Activity w/Rest Home Medications: Aspirin [Aspirin EC] 81 mg PO DAILY 04/24/17 Atorvastatin Calcium [Lipitor 20 mg Tablet] 20 mg PO QHS 04/24/17 Calcium Carbonate [Tums Chewable 500 mg Tab.chew] 2,000 mg PO BIDACBS 04/24/17 Folic Acid/Vitamin B Comp W-C [Nephrocaps Multiple Vitamin Capsule] 1 cap PO DAILY 04/24/17 Isosorbide Dinitrate [Isordil Titradose 20 mg Tablet] 20 mg PO Q12 04/24/17 Magnesium Oxide [Mag-Ox 400 mg Tablet] 400 mg PO DAILY 04/24/17 Omeprazole 20 mg PO QAM 04/24/17 Sodium Bicarbonate [Sodium Bicarbonate 650 mg Tablet] 650 mg PO BID 04/24/17 Azithromycin [Zithromax] 250 mg PO DAILY #4 tablet 04/26/17 Cefuroxime Axetil [Ceftin 500 mg Tablet] 500 mg PO BID #5 tablet 04/26/17 Isosorbide Dinitrate [Isordil Titradose 20 mg Tablet] 10 mg PO Q12 #60 tablet Prednisone [Deltasone 20 mg Tablet] 20 mg PO ASDIR PRN #9 tablet 04/26/17 History of Present Illness Patient complains of: Weakness History of Present Illness: TYLOR JIMENEZ is a 76 year old male who was brought to the ED by his daughter after hemodialysis session was completed because of a fever of 101.2 in association with generalized weakness and confusion. He was previously admitted to our service 04/19-04/22 with discharge diagnosis of septic shock due to recurrent urinary tract infection, acute encephalopathy, secondary to same. Hospital Course Hospital Course: Pt was admitted under COPD exacerbation protocol and treated with IS, neb treatments, po prednisone, and IV antibiotics to cover both UTI and respiratory megan. On day one of admission, he did develop some nausea and vomiting that resolved with IVF and zofran. He remained afebrile throughout. Hypotension was corrected with IVF, medication, and dry weight adjustments. Mentation has gradually improved. On day of discharge, pt is tolerating regular diet, maintaining sats on room air and states he is feeling well and is ready for discharge home. Physical Exam Vital Signs: Temp Pulse Resp BP Pulse Ox 97.7 F 70 18 106/53 L 96 04/26/17 07:32 04/26/17 08:00 04/26/17 08:00 04/26/17 07:32 04/26/17 08:00 Intake & Output 04/25/17 04/26/17 04/27/17 06:59 06:59 06:59 Intake Total 1292 1148 Output Total 150 1300 Balance 1142 -152 Weight 82.7 kg 82.2 kg General appearance: PRESENT: no acute distress, hard of hearing, well-developed , well-nourished Head exam: PRESENT: atraumatic, normocephalic Eye exam: PRESENT: conjunctiva pink, EOMI, PERRLA. ABSENT: scleral icterus Ear exam: PRESENT: normal external ear exam Mouth exam: PRESENT: moist, tongue midline Neck exam: ABSENT: carotid bruit, JVD, lymphadenopathy, thyromegaly Respiratory exam: PRESENT: clear to auscultation jenni, decreased breath sounds - Slightly diminished bibasilar lung sounds; improved from jason exam, symmetrical, unlabored. ABSENT: rales, rhonchi, wheezes Cardiovascular exam: PRESENT: RRR. ABSENT: diastolic murmur, rubs, systolic murmur Pulses: PRESENT: normal dorsalis pedis pul Vascular exam: PRESENT: normal capillary refill GI/Abdominal exam: PRESENT: normal bowel sounds, soft. ABSENT: distended, guarding, mass, organolmegaly, rebound, tenderness Rectal exam: PRESENT: deferred Extremities exam: PRESENT: full ROM. ABSENT: calf tenderness, clubbing, pedal edema Neurological exam: PRESENT: alert, awake, oriented to person, oriented to place , oriented to time, oriented to situation, CN II-XII grossly intact. ABSENT: motor sensory deficit Psychiatric exam: PRESENT: appropriate affect, normal mood. ABSENT: homicidal ideation, suicidal ideation Skin exam: PRESENT: dry, intact, warm. ABSENT: cyanosis, rash Results Laboratory Results: 04/26/17 05:08 04/25/17 04:49 04/26/17 05:08 WBC 12.4 H RBC 3.19 L Hgb 10.2 L Hct 30.0 L MCV 94 MCH 32.0 MCHC 34.1 RDW 13.8 Plt Count 189 Impressions: Chest X-Ray 04/23/17 19:04 IMPRESSION: NO ACUTE RADIOGRAPHIC FINDING IN THE CHEST. Qualifiers PATEINT BEING DISCHARGED WITH ANY OF THE FOLLOWING DIAGNOSIS?: No
[2017-04-26 11:28] VITALS: BP 106/54
[2017-04-26] MEDS ORDERED: CEFEPIME 1 GM/D5W RTU 1 GM/50 ML RTUPB IV SCH (22:00)
== END 2017-04-26 11:40 | disposition home or self-care (01) | DRG 190 ==
LOC: ER 16:56 → UNDOADMIN 22:26 → EH 22:26 → 3W 04-24 02:22 → EH 04-24 02:22
PROVIDERS: ADMIT Family Medicine; ATTEND Family Medicine
PROC: 3E0F73Z Introduction of Anti-inflammatory into Respiratory Tract, Via Natural or Artificial Opening (ICD-10-PCS; 2017-04-24)
PROC: 5A1D70Z Performance of Urinary Filtration, Intermittent, Less than 6 Hours Per Day (ICD-10-PCS; principal; 2017-04-25)
DX: J44.1 Chronic obstructive pulmonary disease with (acute) exacerbation (principal); N18.6 End stage renal disease; J18.9 Pneumonia, unspecified organism; I12.0 Hypertensive chronic kidney disease with stage 5 chronic kidney disease or end stage renal disease; N39.0 Urinary tract infection, site not specified; I25.10 Atherosclerotic heart disease of native coronary artery without angina pectoris; I73.9 Peripheral vascular disease, unspecified; M10.9 Gout, unspecified; E78.5 Hyperlipidemia, unspecified; Z96.641 Presence of right artificial hip joint; B96.20 Unspecified Escherichia coli [E. coli] as the cause of diseases classified elsewhere; E83.51 Hypocalcemia; I95.3 Hypotension of hemodialysis; L89.611 Pressure ulcer of right heel, stage 1; Z95.1 Presence of aortocoronary bypass graft; Z99.2 Dependence on renal dialysis; Z90.79 Acquired absence of other genital organ(s); Z87.891 Personal history of nicotine dependence; Z88.1 Allergy status to other antibiotic agents; Z66 Do not resuscitate
CPT/HCPCS: 36415; 71010; 80048; 80053; 80307; 81001; 82803; 82962; 83605; 83735; 85025; 85027; 86317; 87040; 87340; 93005; 93010; 94640; 94799; 99285; J0456; J0692; J0696; J1644; J1815; J3490; J7030; J7040; J7060; J7512; J7620; Q4081

== ENCOUNTER 2017-12-07 15:25 | Inpatient (IN) | payer OTHER, MEDICARE ==
--- NOTE | 2017-12-07 15:57 | ER Document Report ---
ED General - General Chief Complaint: Dizziness Stated Complaint: CONFUSION Time Seen by Provider: 12/07/17 15:54 Mode of Arrival: Medic Information source: Patient, Relative Notes: This is a 77-year-old man with a history of end-stage renal disease (on hemodialysis), bladder cancer/prostate cancer with urostomy who is brought in by EMS after an episode of confusion. Patient is accompanied by his daughter states that he just finished dialysis and was walking out to the car in the parking lot and she noticed that he was "wobbly". When they got to the car, his eyes rolled up in the back of his head and he started retching. The patient 's daughter went to get help and when she came back the patient was already improving. She states that the patient is back to his baseline at this time. She does report that he has had episodes of confusion in the past associated with fever and UTIs. The patient denies any pain at this time. He denies any fever. He denies any nausea. The patient's daughter reports that the systolic blood pressure in the car was 98 (when help from the dialysis center arrived). Fingerstick by EMS showed a blood sugar of 119. TRAVEL OUTSIDE OF THE [place] IN LAST 30 DAYS: No - HPI Onset: Just prior to arrival Onset/Duration: Gradual Quality of pain: No pain Severity: None Pain Level: Denies Associated symptoms: denies: Chest pain, Fever, Shortness of breath Exacerbated by: Denies Relieved by: Denies Similar symptoms previously: Yes Recently seen / treated by doctor: Yes - Related Data Allergies/Adverse Reactions: ciprofloxacin [From Cipro] Allergy (Verified 04/18/17 15:19) Past Medical History - General Information source: Relative - Social History Smoking Status: Former Smoker Cigarette use (# per day): No Chew tobacco use (# tins/day): No Frequency of alcohol use: None Drug Abuse: None Lives with: Family Family History: None, Malignancy Patient has suicidal ideation: No Patient has homicidal ideation: No - Past Medical History Cardiac Medical History: Reports: Hx Congestive Heart Failure, Hx Coronary Artery Disease, Hx Hypercholesterolemia, Hx Hypertension, Hx Peripheral Vascular Disease Pulmonary Medical History: Reports: Hx COPD - Possible Neurological Medical History: Denies: Hx Cerebrovascular Accident, Hx Seizures Renal/ Medical History: Reports: Hx End Stage Renal Disease - On hemodialysis Sunday and Sunday, Hx Peritoneal Dialysis Malignancy Medical History: Reports Hx Renal (Kidney) Cancer Musculoskeltal Medical History: Reports Hx Gout Psychiatric Medical History: Denies: Hx Depression Infectious Medical History: Reports: Hx C-Diff Past Surgical History: Reports: Hx Cardiac Catheterization, Hx Cardiac Surgery - CABG, Hx Coronary Artery Bypass Graft, Hx Genitourinary Surgery - urostomy, Hx Orthopedic Surgery - Right hip hemiarthroplasty August 2016, Hx Vascular Surgery - AAA repair, Other - Nephrostomy tube placement, creation of ileal conduit, prostatectomy - Immunizations Immunizations up to date: Yes Hx Diphtheria, Pertussis, Tetanus Vaccination: Yes Hx Pneumococcal Vaccination: 04/17/14 Review of Systems - Review of Systems Constitutional: denies: Chills, Fever EENT: No symptoms reported Cardiovascular: See HPI Respiratory: No symptoms reported Gastrointestinal: No symptoms reported Genitourinary: No symptoms reported Male Genitourinary: No symptoms reported Musculoskeletal: No symptoms reported Skin: No symptoms reported Hematologic/Lymphatic: No symptoms reported Neurological/Psychological: See HPI Physical Exam - Vital signs Vitals: Temp Pulse Resp Pulse Ox 98.6 F 92 22 H 95 12/07/17 15:46 12/07/17 15:46 12/07/17 15:46 12/07/17 15:46 Notes: Physical exam: GENERAL: 87-year-old man, alert and oriented, no acute distress. HEAD: Atraumatic, normocephalic. EYES: Pupils equal round and reactive to light, extraocular movements intact, sclera anicteric, conjunctiva are normal. ENT: TMs normal, nares patent, oropharynx clear without exudates. Moist mucous membranes. NECK: Normal range of motion, supple without obvious mass or JVD. LUNGS: Breath sounds clear to auscultation bilaterally and equal. No wheezes rales or rhonchi. HEART: Regular rate and rhythm without murmurs, rubs or gallops. ABDOMEN: Soft, normoactive bowel sounds. No tenderness to palpation. No guarding, no rebound. Urostomy draining yellow urine. EXTREMITIES: Normal range of motion, no pitting or edema. No clubbing or cyanosis. NEUROLOGICAL: Cranial nerves II through XII grossly intact. Normal speech, moving all extremities. PSYCH: Normal mood, normal affect. SKIN: Warm, Dry, normal turgor, no rashes or lesions noted. Course - Re-evaluation Re-evalutation: 12/07/17 22:35 Note: As per the daughter at, the patient has had similar dose of confusion in the past associated with a urine infection. He usually has fever associated with this. Patient was observed in the emergency room and he does have a UTI with a white count that is elevated. We did attempt to walk the patient around the room but he was off balance (which is new) and very weak. He was not able to ambulate. Additionally, he did spike a fever in the ER (to 100.4). Given the altered mental status, he will be admitted for encephalopathy in the setting of UTI and syncope. - Vital Signs Vital signs: Temp Pulse Resp BP Pulse Ox 100.4 F 85 24 H 126/69 H 97 12/07/17 20:54 12/07/17 19:25 12/07/17 21:01 12/07/17 21:00 12/07/17 21:00 - Laboratory Result Diagrams: 12/07/17 16:30 12/07/17 16:30 Laboratory results interpreted by me: 12/07/17 12/07/17 12/07/17 16:30 16:30 16:30 WBC 12.8 H RBC 3.77 L Hgb 12.1 L Hct 35.4 L RDW 14.5 H Seg Neutrophils % 83.6 H Lymphocytes % 8.0 L Absolute Neutrophils 10.7 H Chloride 97 L BUN 24 H Creatinine 3.07 H Est GFR ( Amer) 24 L Est GFR (Non-Af Amer) 20 L Glucose 133 H POC Glucose Urine Protein 30 H Urine Ketones TRACE H Urine Urobilinogen 4.0 H Ur Leukocyte Esterase LARGE H Urine Ascorbic Acid 40 H 12/07/17 16:43 WBC RBC Hgb Hct RDW Seg Neutrophils % Lymphocytes % Absolute Neutrophils Chloride BUN Creatinine Est GFR ( Amer) Est GFR (Non-Af Amer) Glucose POC Glucose 202 H Urine Protein Urine Ketones Urine Urobilinogen Ur Leukocyte Esterase Urine Ascorbic Acid - Diagnostic Test Radiology reviewed: Image reviewed, Reports reviewed - Head CT shows no acute bleed Critical Care Note - Critical Care Note Total time excluding time spent on procedures (mins): 60 Discharge - Discharge Clinical Impression: Encephalopathy, UTI, Syncope Condition: Stable Disposition: ADMITTED INPATIENT Admitting Provider: Hospitalist - Dr. Castillo Unit Admitted: Telemetry
--- NOTE | 2017-12-07 16:28 | RADIOLOGY REPORT (SQ) ---
EXAM DESCRIPTION: CHEST SINGLE VIEW COMPLETED DATE/TIME: 12/07/2017 4:17 pm REASON FOR STUDY: altered mental status COMPARISON: 04/23/2017 EXAM PARAMETERS: NUMBER OF VIEWS: One view. TECHNIQUE: Single frontal radiographic view of the chest acquired. RADIATION DOSE: NA LIMITATIONS: None. FINDINGS: LUNGS AND PLEURA: No opacities, masses or pneumothorax. No pleural effusion. MEDIASTINUM AND HILAR STRUCTURES: Possible hiatal hernia. HEART AND VASCULAR STRUCTURES: Heart normal in size. Normal vasculature. BONES: No acute findings. HARDWARE: Sternotomy wires. OTHER: No other significant finding. IMPRESSION: Possible hiatal hernia. No acute cardiopulmonary disease. TECHNICAL DOCUMENTATION: JOB ID: [id number] [email or web address]- All Rights Reserved Reading location - IP/workstation name: [email or web address]
[2017-12-07 17:06] LABS: ABSOLUTE EOSINOPHILS # (AUTO) 0.2 10^3/uL (0.0-0.6); ABSOLUTE MONOCYTES (AUTO) 0.9 10^3/uL (0.1-1.4); ABSOLUTE NEUT (AUTO) 10.7 10^3/uL (1.7-8.2); BASOPHILS % (AUTO) 0.3 % (0-2); EOSINOPHILS % (AUTO) 1.4 % (0-6); HEMATOCRIT 35.4 % (37.9-51.0); HEMOGLOBIN 12.1 g/dL (13.5-17.0); MEAN CORPUSCULAR HEMOGLOBIN 32.2 pg (27.0-33.4); MEAN CORPUSCULAR HGB CONC 34.3 g/dL (32.0-36.0); MEAN CORPUSCULAR VOLUME 94 fl (80-97); MONOCYTES % (AUTO) 6.7 % (3-13); PLATELET COUNT 179 10^3/uL (150-450); RED BLOOD COUNT 3.77 10^6/uL (4.35-5.55); RED CELL DISTRIBUTION WIDTH 14.5 % (11.5-14.0); SEGMENTED NEUTROPHILS % (AUTO) 83.6 % (42-78); TOTAL CELLS COUNTED % (AUTO) 100 %; WHITE BLOOD COUNT 12.8 10^3/uL (4.0-10.5)
[2017-12-07 17:18] LABS: ALANINE AMINOTRANSFERASE 27 U/L (21-72); ALBUMIN 4.4 g/dL (3.5-5.0); ALKALINE PHOSPHATASE 83 U/L (38-126); ANION GAP 17 (5-19); ASPARTATE AMINO TRANSFERASE 24 U/L (17-59); BILIRUBIN,DIRECT 0.4 mg/dL (0.0-0.4); BILIRUBIN,TOTAL 0.4 mg/dL (0.2-1.3); BLOOD UREA NITROGEN 24 mg/dL (7-20); CALCIUM 8.7 mg/dL (8.4-10.2); CARBON DIOXIDE 30 mmol/L (22-30); CHLORIDE 97 mmol/L (98-107); GLUCOSE 133 mg/dL (75-110); POTASSIUM 4.3 mmol/L (3.6-5.0); SODIUM 143.8 mmol/L (137-145); TOTAL PROTEIN 7.8 g/dL (6.3-8.2)
[2017-12-07 19:39] LABS: AMORPHOUS SEDIMENT,URINE 1+ /HPF; APPEARANCE,URINE CLOUDY; BILIRUBIN,URINE NEGATIVE (NEGATIVE); GLUCOSE, URINE NEGATIVE (NEGATIVE); KETONES,URINE TRACE mg/dL (NEGATIVE); LEUKOCYTE ESTERASE,URINE LARGE (NEGATIVE); NITRITE,URINE NEGATIVE (NEGATIVE); PROTEIN,URINE 30 mg/dL (NEGATIVE); URINE SPECIFIC GRAVITY 1.015
[2017-12-07 19:40] LABS: COLOR,URINE GREEN
[2017-12-07] MEDS ORDERED: CEFTRIAXONE 1 GM/D5W RTU 1 GM/50 ML RTUPB IV ONE (20:26)
[2017-12-07] MEDS ORDERED: ACETAMINOPHEN 325 MG TABLET PO ONE (21:43)
--- NOTE | 2017-12-07 22:03 | RADIOLOGY REPORT (SQ) ---
EXAM DESCRIPTION: CT HEAD WITHOUT COMPLETED DATE/TIME: 12/07/2017 9:41 pm REASON FOR STUDY: confusion COMPARISON: 04/18/2017 TECHNIQUE: Axial images acquired through the brain without intravenous contrast. Images reviewed wi th bone, brain and subdural windows. Images stored on PACS. All CT scanners at this facility use dose modulation, iterative reconstruction, and/or weight based d osing when appropriate to reduce radiation dose to as low as reasonably achievable (ALARA). [facility]: Dose Right [facility]: CareDose [facility]: Dose Right [facility]: Teradose 4D [facility]: [employer] RADIATION DOSE: CT Rad equipment meets quality standard of care and radiation dose reduction techniq ues were employed. CTDIvol: 53.2 mGy. DLP: 2141 mGy-cm. mGy. LIMITATIONS: Mild motion artifact. FINDINGS: VENTRICLES: Prominent. CEREBRUM: No masses. No hemorrhage. No midline shift. Areas of low density in the white matter mos t likely due to chronic micro-vascular ischemic change. No evidence for acute infarction. CEREBELLUM: No masses. No hemorrhage. No alteration of density. No evidence for acute infarction. EXTRAAXIAL SPACES: Mild age-related involutional change. No fluid collections. No masses. ORBITS AND GLOBE: No intra- or extraconal masses. Normal contour of globe without masses. CALVARIUM: No fracture. PARANASAL SINUSES: Left maxillary mucosal thickening. SOFT TISSUES: No mass or hematoma. OTHER: No other significant finding. IMPRESSION: No acute intracranial finding. EVIDENCE OF ACUTE STROKE: NO. TECHNICAL DOCUMENTATION: JOB ID: [id number] Quality ID # [id number]: Final reports with documentation of one or more dose reduction techniques (e.g., Au tomated exposure control, adjustment of the mA and/or kV according to patient size, use of iterative reconstruction technique) 2010 [employer]- All Rights Reserved Reading location - IP/workstation name: [email or web address]
[2017-12-07 22:06] LABS: CREATINE KINASE MB 2.44 ng/mL (<4.55); TROPONIN I 0.023 ng/mL
[2017-12-08] MEDS ORDERED: IPRATROPIUM/ALBUTEROL 0.5-2.5 MG/3 ML AMPUL NEB PRN (04:40)
[2017-12-08] MEDS ORDERED: NORMAL SALINE 1000 ML 1,000 ML IV PRN (04:43)
[2017-12-08] MEDS: HEPARIN SOD (PORCINE) 5,000 UNIT/ML 1 ML SYRINGE SUBCUT SCH ×3 (05:23→22:32)
--- NOTE | 2017-12-08 06:07 | PDOC H&P ---
History of Present Illness Admission Date/PCP: 12/07/17 23:11 Patient complains of: Presyncope History of Present Illness: TYLOR JIMENEZ is a 77 year old male with history of chronic kidney disease on hemodialysis Sunday. Patient presents after 12 hours of mild confusion and generalized weakness. Following dialysis he was administered vancomycin and gentamicin. He was profoundly fatigued with borderline hypotension brought to the emergency room for evaluation. He is found to have urinary tract infection receives Rocephin IV and referred to the hospitalist for admission. Patient denies pain or recent antibiotic use. Previous episodes of urinary tract infection have presented similarly in the past. Past Medical History Cardiac Medical History: Reports: Congestive Heart Failure, Coronary Artery Disease, Hyperlipidema, Hypertension, Peripheral Vascular Disease Pulmonary Medical History: Reports: Chronic Obstructive Pulmonary Disease (COPD ) - Possible Neurological Medical History: Denies: Seizures Renal/ Medical History: Reports: End Stage Renal Disease - On hemodialysis Sunday and Sunday Malignancy Medical History: Reports: Renal (Kidney) Cancer Musculoskeltal Medical History: Reports: Gout Psychiatric Medical History: Denies: Depression Infectious Medical History: Reports: Clostridium Difficile Past Surgical History Past Surgical History: Reports: Cardiac Catheterization, Coronary Artery Bypass Graft, Orthopedic Surgery - Right hip hemiarthroplasty August 2016, Vascular Surgery - AAA repair, Other - Nephrostomy tube placement, creation of ileal conduit, prostatectomy Social History Information Source: Patient, [facility], [facility] Records Lives with: Family Smoking Status: Former Smoker Frequency of Alcohol Use: None Hx Recreational Drug Use: No Drugs: None Hx Prescription Drug Abuse: No - Advance Directive Resuscitation Status: Full Code Family History Family History: None, Malignancy Parental Family History Reviewed: Yes Children Family History Reviewed: Yes Sibling(s) Family History Reviewed.: Yes Medication/Allergy Home Medications: Folic Acid/Vitamin B Comp W-C [Nephrocaps Multiple Vitamin Capsule] 12/07/17 Allergies/Adverse Reactions: ciprofloxacin [From Cipro] Allergy (Verified 04/18/17 15:19) Review of Systems ROS unobtainable: Due to mental status Physical Exam Vital Signs: Temp Pulse Resp BP Pulse Ox 98.7 F 84 20 100/51 L 87 L 12/08/17 04:00 12/08/17 05:14 12/08/17 05:14 12/08/17 04:00 05/26/18 05:14 Intake & Output 12/06/17 12/07/17 12/08/17 11:59 11:59 11:59 Weight 72.8 kg General appearance: PRESENT: cooperative, disheveled, mild distress Head exam: PRESENT: atraumatic, normocephalic Eye exam: PRESENT: conjunctiva pink, EOMI, PERRLA. ABSENT: scleral icterus Ear exam: PRESENT: normal external ear exam Mouth exam: PRESENT: moist, tongue midline Neck exam: ABSENT: carotid bruit, JVD, lymphadenopathy, thyromegaly Respiratory exam: PRESENT: clear to auscultation jenni. ABSENT: rales, rhonchi, wheezes Cardiovascular exam: PRESENT: RRR. ABSENT: diastolic murmur, rubs, systolic murmur Pulses: PRESENT: normal dorsalis pedis pul Vascular exam: PRESENT: normal capillary refill GI/Abdominal exam: PRESENT: normal bowel sounds, soft. ABSENT: distended, guarding, mass, organolmegaly, rebound, tenderness Rectal exam: PRESENT: deferred Extremities exam: PRESENT: full ROM. ABSENT: calf tenderness, clubbing, pedal edema Neurological exam: PRESENT: alert, altered, awake, oriented to person, oriented to place, oriented to situation, CN II-XII grossly intact. ABSENT: motor sensory deficit Psychiatric exam: PRESENT: appropriate affect, normal mood. ABSENT: homicidal ideation, suicidal ideation Skin exam: PRESENT: dry, intact, warm. ABSENT: cyanosis, rash Results Impressions: Chest X-Ray 12/07/17 15:57 IMPRESSION: Possible hiatal hernia. No acute cardiopulmonary disease. Head CT 12/07/17 21:08 IMPRESSION: No acute intracranial finding. EVIDENCE OF ACUTE STROKE: NO. Assessment & Plan - Diagnosis (1) UTI (urinary tract infection) Qualifiers: Urinary tract infection type: site unspecified Is this a current diagnosis for this admission?: Yes Plan: Continue empiric Rocephin, follow-up CBC, blood and urine culture (2) Sepsis Qualifiers: Sepsis type: Escherichia coli Qualified Code(s): A41.51 - Sepsis due to Escherichia coli [E. coli] Is this a current diagnosis for this admission?: Yes Plan: Secondary to #1, fluid resuscitation as needed (3) Encephalopathy acute Is this a current diagnosis for this admission?: Yes Plan: Secondary to #1, supportive care (4) End-stage renal disease on hemodialysis Is this a current diagnosis for this admission?: Yes Plan: Nonoliguric with urostomy, nephrology consulted - Time Time Spent: 50 to 70 Minutes - Inpatient Certification Medical Necessity: Need Close Monitoring Due to Risk of Patient Decompensation
[2017-12-08 06:37] LABS: ABSOLUTE BASOPHILS # (AUTO) 0.2 10^3/uL (0.0-0.2); ABSOLUTE EOSINOPHILS # (AUTO) 0.1 10^3/uL (0.0-0.6); ABSOLUTE LYMPHOCYTES (AUTO) 1.7 10^3/uL (0.5-4.7); ABSOLUTE MONOCYTES (AUTO) 0.9 10^3/uL (0.1-1.4); ABSOLUTE NEUT (AUTO) 9.9 10^3/uL (1.7-8.2); BASOPHILS % (AUTO) 1.2 % (0-2); EOSINOPHILS % (AUTO) 1.1 % (0-6); HEMATOCRIT 33.5 % (37.9-51.0); HEMOGLOBIN 11.3 g/dL (13.5-17.0); LYMPHOCYTES % (AUTO) 13.2 % (13-45); MEAN CORPUSCULAR HGB CONC 33.5 g/dL (32.0-36.0); MEAN CORPUSCULAR VOLUME 95 fl (80-97); MONOCYTES % (AUTO) 7.4 % (3-13); PLATELET COUNT 156 10^3/uL (150-450); RED BLOOD COUNT 3.52 10^6/uL (4.35-5.55); RED CELL DISTRIBUTION WIDTH 14.3 % (11.5-14.0); SEGMENTED NEUTROPHILS % (AUTO) 77.1 % (42-78); TOTAL CELLS COUNTED % (AUTO) 100 %; WHITE BLOOD COUNT 12.8 10^3/uL (4.0-10.5)
[2017-12-08] MEDS ORDERED: ACETAMINOPHEN 325 MG TABLET PO PRN (06:54)
[2017-12-08 06:59] LABS: ANION GAP 15 (5-19); BLOOD UREA NITROGEN 37 mg/dL (7-20); CALCIUM 8.2 mg/dL (8.4-10.2); CARBON DIOXIDE 27 mmol/L (22-30); CHLORIDE 100 mmol/L (98-107); GLUCOSE 127 mg/dL (75-110); POTASSIUM 4.4 mmol/L (3.6-5.0); SODIUM 141.9 mmol/L (137-145)
[2017-12-08] MEDS: DOCUSATE SODIUM 100 MG CAPSULE PO SCH ×2 (10:52→18:53)
--- NOTE | 2017-12-08 19:42 | PDOC PROGRESS REPORT ---
Subjective Progress Note for:: 12/08/17 Subjective:: Doing better, no recurrent dizziness or symptoms of presyncope. No chest pain or shortness of breath or palpitations. Denies fever or chills. No nausea or vomiting. Reason For Visit: UTI SEPSIS HYPOTENSION PRESYNCOPE Physical Exam Vital Signs: Temp Pulse Resp BP Pulse Ox 98.3 F 77 18 101/57 L 92 12/08/17 15:29 12/08/17 16:12 12/08/17 16:12 12/08/17 15:29 12/08/17 16:12 Intake & Output 12/07/17 12/08/17 12/09/17 06:59 06:59 06:59 Intake Total 243 Output Total 100 Balance 143 Weight 72.8 kg GEN: NAD, well-developed, well-nourished CV: RRR, NL S1S2 LUNGS: CTA bilaterally ABDOMEN Soft, NT, +BS EXTERMITIES: No e/c/c NEURO: Alert, oriented 3, nonfocal Results Laboratory Results: 12/08/17 06:15 12/08/17 06:15 12/08/17 12/08/17 12/08/17 06:15 06:15 06:15 WBC 12.8 H RBC 3.52 L Hgb 11.3 L Hct 33.5 L MCV 95 MCH 32.0 MCHC 33.5 RDW 14.3 H Plt Count 156 Seg Neutrophils % 77.1 Lymphocytes % 13.2 Monocytes % 7.4 Eosinophils % 1.1 Basophils % 1.2 Absolute Neutrophils 9.9 H Absolute Lymphocytes 1.7 Absolute Monocytes 0.9 Absolute Eosinophils 0.1 Absolute Basophils 0.2 Sodium 141.9 Potassium 4.4 Chloride 100 Carbon Dioxide 27 Anion Gap 15 BUN 37 H Creatinine 4.07 H Est GFR ( Amer) 17 L Est GFR (Non-Af Amer) 14 L Glucose 127 H Calcium 8.2 L Magnesium 1.6 Impressions: Chest X-Ray 12/07/17 15:57 IMPRESSION: Possible hiatal hernia. No acute cardiopulmonary disease. Head CT 12/07/17 21:08 IMPRESSION: No acute intracranial finding. EVIDENCE OF ACUTE STROKE: NO. Assessment & Plan - Plan Summary Plan Summary: (1) UTI (urinary tract infection) Qualifiers: Urinary tract infection type: site unspecified Is this a current diagnosis for this admission?: Yes Plan: Continue empiric Rocephin, follow-up CBC, blood and urine culture (2) Sepsis Qualifiers: Sepsis type: Escherichia coli Qualified Code(s): A41.51 - Sepsis due to Escherichia coli [E. coli] Is this a current diagnosis for this admission?: Yes Plan: Secondary to #1, fluid resuscitation as needed (3) Encephalopathy acute Is this a current diagnosis for this admission?: Yes Plan: Secondary to #1. Improved. Continue supportive care (4) End-stage renal disease on hemodialysis Is this a current diagnosis for this admission?: Yes Plan: Nonoliguric with urostomy, nephrology consulted
[2017-12-08] MEDS ORDERED: CEFTRIAXONE 1 GM/D5W RTU 1 GM/50 ML RTUPB IV SCH (22:00)
[2017-12-08] MEDS: CEFTRIAXONE SODIUM 1,000 MG in DEXTROSE 5%-WATER 50 ML IV SCH (22:32)
[2017-12-09 05:36] LABS: ABSOLUTE EOSINOPHILS # (AUTO) 0.2 10^3/uL (0.0-0.6); ABSOLUTE LYMPHOCYTES (AUTO) 1.5 10^3/uL (0.5-4.7); ABSOLUTE MONOCYTES (AUTO) 0.8 10^3/uL (0.1-1.4); ABSOLUTE NEUT (AUTO) 7.4 10^3/uL (1.7-8.2); BASOPHILS % (AUTO) 0.4 % (0-2); HEMATOCRIT 30.9 % (37.9-51.0); HEMOGLOBIN 10.7 g/dL (13.5-17.0); LYMPHOCYTES % (AUTO) 15.4 % (13-45); MEAN CORPUSCULAR HEMOGLOBIN 32.6 pg (27.0-33.4); MEAN CORPUSCULAR HGB CONC 34.6 g/dL (32.0-36.0); MEAN CORPUSCULAR VOLUME 94 fl (80-97); MONOCYTES % (AUTO) 7.6 % (3-13); PLATELET COUNT 149 10^3/uL (150-450); RED BLOOD COUNT 3.28 10^6/uL (4.35-5.55); RED CELL DISTRIBUTION WIDTH 14.7 % (11.5-14.0); SEGMENTED NEUTROPHILS % (AUTO) 74.6 % (42-78); TOTAL CELLS COUNTED % (AUTO) 100 %
[2017-12-09] MEDS: HEPARIN SOD (PORCINE) 5,000 UNIT/ML 1 ML SYRINGE SUBCUT SCH ×3 (06:04→21:17)
[2017-12-09 06:15] LABS: ANION GAP 16 (5-19); CALCIUM 7.8 mg/dL (8.4-10.2); CARBON DIOXIDE 23 mmol/L (22-30); CHLORIDE 102 mmol/L (98-107); GLUCOSE 106 mg/dL (75-110); POTASSIUM 4.7 mmol/L (3.6-5.0)
[2017-12-09 06:51] LABS: BLOOD UREA NITROGEN 56 mg/dL (7-20)
[2017-12-09] MEDS: DOCUSATE SODIUM 100 MG CAPSULE PO SCH ×2 (10:39→17:51)
--- NOTE | 2017-12-09 12:57 | PDOC PROGRESS REPORT ---
Subjective Progress Note for:: 12/09/17 Subjective:: Doing better, no recurrent dizziness or symptoms of presyncope. No chest pain or shortness of breath or palpitations. Denies fever or chills. No abdominal pain, denies nausea or vomiting. Reason For Visit: UTI SEPSIS HYPOTENSION PRESYNCOPE Physical Exam Vital Signs: Temp Pulse Resp BP Pulse Ox 98.3 F 86 18 118/52 L 95 12/09/17 08:03 12/09/17 09:39 12/09/17 09:39 12/09/17 08:03 12/09/17 09:39 Intake & Output 12/08/17 12/09/17 12/10/17 06:59 06:59 06:59 Intake Total 762 Output Total 400 Balance 362 Weight 72.8 kg 73.6 kg GEN: NAD, well-developed, well-nourished CV: RRR, NL S1S2 LUNGS: CTA bilaterally ABDOMEN Soft, NT, +BS EXTERMITIES: No e/c/c NEURO: Alert, oriented 3, nonfocal Results Laboratory Results: 12/09/17 04:51 12/09/17 04:51 12/09/17 12/09/17 04:51 04:51 WBC 10.0 RBC 3.28 L Hgb 10.7 L Hct 30.9 L MCV 94 MCH 32.6 MCHC 34.6 RDW 14.7 H Plt Count 149 L Seg Neutrophils % 74.6 Lymphocytes % 15.4 Monocytes % 7.6 Eosinophils % 2.0 Basophils % 0.4 Absolute Neutrophils 7.4 Absolute Lymphocytes 1.5 Absolute Monocytes 0.8 Absolute Eosinophils 0.2 Absolute Basophils 0.0 Sodium 141.0 Potassium 4.7 Chloride 102 Carbon Dioxide 23 Anion Gap 16 BUN 56 H Creatinine 4.71 H Est GFR ( Amer) 15 L Est GFR (Non-Af Amer) 12 L Glucose 106 Calcium 7.8 L Impressions: Chest X-Ray 12/07/17 15:57 IMPRESSION: Possible hiatal hernia. No acute cardiopulmonary disease. Head CT 12/07/17 21:08 IMPRESSION: No acute intracranial finding. EVIDENCE OF ACUTE STROKE: NO. Assessment & Plan - Plan Summary Plan Summary: (1) UTI (urinary tract infection) Qualifiers: Urinary tract infection type: site unspecified Is this a current diagnosis for this admission?: Yes Plan: Continue empiric Rocephin, follow-up CBC. Urine culture growing gram-negative iraj. Follow-up blood and urine culture results/sensitivities. (2) Sepsis Qualifiers: Sepsis type: Escherichia coli Qualified Code(s): A41.51 - Sepsis due to Escherichia coli [E. coli] Is this a current diagnosis for this admission?: Yes Plan: Secondary to #1, fluid resuscitation as needed. Leukocytosis resolved. Follow- up CBC in a.m. (3) Encephalopathy acute Is this a current diagnosis for this admission?: Yes Plan: Secondary to #1. Improved. Continue supportive care (4) End-stage renal disease on hemodialysis Is this a current diagnosis for this admission?: Yes Plan: Nonoliguric with urostomy, nephrology consulted
[2017-12-09] MEDS ORDERED: ASPIRIN 81 MG TABLET, ENT COATED PO SCH (18:00)
[2017-12-09] MEDS: SODIUM BICARBONATE 650 MG TABLET PO SCH (19:22)
[2017-12-09] MEDS ORDERED: ISOSORBIDE MONONITRATE 20 MG TABLET ONE (19:25)
[2017-12-09] MEDS: ISOSORBIDE MONONITRATE 20 MG TABLET PO SCH (19:29)
[2017-12-09] MEDS: CEFTRIAXONE SODIUM 1,000 MG in DEXTROSE 5%-WATER 50 ML IV SCH (21:22)
[2017-12-09] MEDS ORDERED: ATORVASTATIN CALCIUM 20 MG TABLET PO SCH (22:00)
[2017-12-10] MEDS ORDERED: NORMAL SALINE 1000 ML 1,000 ML IV PRN (00:20)
[2017-12-10] MEDS: HEPARIN SOD (PORCINE) 5,000 UNIT/ML 1 ML SYRINGE SUBCUT SCH ×2 (05:06→13:40)
[2017-12-10 05:48] LABS: ABSOLUTE EOSINOPHILS # (AUTO) 0.2 10^3/uL (0.0-0.6); ABSOLUTE LYMPHOCYTES (AUTO) 1.8 10^3/uL (0.5-4.7); ABSOLUTE MONOCYTES (AUTO) 0.6 10^3/uL (0.1-1.4); ABSOLUTE NEUT (AUTO) 4.6 10^3/uL (1.7-8.2); BASOPHILS % (AUTO) 0.6 % (0-2); EOSINOPHILS % (AUTO) 3.2 % (0-6); HEMATOCRIT 29.6 % (37.9-51.0); HEMOGLOBIN 10.2 g/dL (13.5-17.0); LYMPHOCYTES % (AUTO) 24.6 % (13-45); MEAN CORPUSCULAR HEMOGLOBIN 32.5 pg (27.0-33.4); MEAN CORPUSCULAR HGB CONC 34.5 g/dL (32.0-36.0); MEAN CORPUSCULAR VOLUME 94 fl (80-97); MONOCYTES % (AUTO) 8.4 % (3-13); PLATELET COUNT 158 10^3/uL (150-450); RED BLOOD COUNT 3.14 10^6/uL (4.35-5.55); RED CELL DISTRIBUTION WIDTH 14.1 % (11.5-14.0); SEGMENTED NEUTROPHILS % (AUTO) 63.2 % (42-78); TOTAL CELLS COUNTED % (AUTO) 100 %; WHITE BLOOD COUNT 7.2 10^3/uL (4.0-10.5)
[2017-12-10 06:09] LABS: ANION GAP 17 (5-19); CALCIUM 7.6 mg/dL (8.4-10.2); CARBON DIOXIDE 25 mmol/L (22-30); CHLORIDE 102 mmol/L (98-107); GLUCOSE 100 mg/dL (75-110); POTASSIUM 4.7 mmol/L (3.6-5.0); SODIUM 144.2 mmol/L (137-145)
[2017-12-10 06:28] LABS: BLOOD UREA NITROGEN 77 mg/dL (7-20)
[2017-12-10] MEDS ORDERED: FOLIC ACID/VITAMIN B COMP W-C CAPSULE PO SCH (10:00)
[2017-12-10] MEDS ORDERED: LANSOPRAZOLE 15 MG TAB.RAP.DR PO SCH (10:00)
--- NOTE | 2017-12-10 10:34 | PDOC CONSULTATION ---
Consultation Consult Date: 12/10/17 Attending physician:: LARRY Parson ONIME Consult reason:: I was asked by the hospitalist service to see this patient to supervise dialysis while here in the hospital. History of Present Illness Admission Date/PCP: 12/07/17 23:11 History of Present Illness: TYLOR JIMENEZ is a 77 year old male known to me with history of end-stage renal disease on maintenance hemodialysis on Mondays, Wednesdays and Fridays, history of frequent UTI, history of C. difficile infection status post fecal transplant, who was brought to the emergency room after dialysis on Sunday. Last Sunday after dialysis patient was found to be very weak, hypotensive and confused so he was brought down by his daughter to the emergency room. Initial evaluation showed that the patient has urinary tract infection. There was a report that he was given vancomycin and gentamicin postdialysis and I am not sure about this. Here in the hospital is currently being given IV Rocephin. His urine culture is growing E. coli and Citrobacter koseri sensitive to ceftriaxone. I am seeing the patient on dialysis this morning and he seems to be his usual self. He could not really tell me the circumstances leading to his admission. He tells me that is feeling fine and does not have any complaints. He said is feeling good and he is eating good as well. He is tolerating dialysis this morning without any problems. He is hemodynamically stable and is currently being monitored toward during dialysis treatment. Past Medical History Cardiac Medical History: Reports: Coronary Artery Disease, Hyperlipidemia, Hypertension-primary, Peripheral Vascular Disease Pulmonary Medical History: Reports: Chronic Obstructive Pulmonary Disease (COPD ) - Possible EENT Medical History: Reports: Other - Bilateral hearing loss Renal/ Medical History: Reports: End Stage Renal Disease - On hemodialysis Sunday and Sunday, Hyperphosphatemia, Metabolic Acidosis, Recurrent UTI Malignancy Medical History: Reports: Renal (Kidney) Cancer - Bladder and prostate cancer Musculoskeltal Medical History: Reports: Gout Infectious Medical History: Reports: 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 Past Surgical History Past Surgical History: Reports: Cardiac Catheterization, Coronary Artery Bypass Graft, Cystectomy, Dialysis Access Surgery AVF, Orthopedic Surgery - Right hip hemiarthroplasty August 2016, Vascular Surgery - AAA repair, Other - Nephrostomy tube placement, creation of ileal conduit, prostatectomy Social History Information Source: [facility] Records Lives with: Family - He lives with his son Smoking Status: Former Smoker Frequency of Alcohol Use: None Hx Recreational Drug Use: No Drugs: None Hx Prescription Drug Abuse: No - Advance Directive Resuscitation Status: Full Code Family History Family History: Malignancy - Bone cancer in his father Parental Family History Reviewed: Yes Children Family History Reviewed: Unknown Sibling(s) Family History Reviewed.: Unknown Medication/Allergy Home Medications: Aspirin [Aspirin EC] 81 mg PO QPM 12/09/17 Atorvastatin Calcium [Lipitor 20 mg Tablet] 20 mg PO QHS 12/09/17 Folic Acid/Vitamin B Comp W-C [Nephrocaps Multiple Vitamin Capsule] 1 cap PO DAILY 12/09/17 Isosorbide Mononitrate [Ismo 20 Mg Tablet] 20 mg PO BID 12/09/17 Magnesium Oxide [Mag-Ox 400 mg Tablet] 400 mg PO DAILY 12/09/17 Omeprazole 20 mg PO DAILY 12/09/17 Sodium Bicarbonate [Sodium Bicarbonate 650 mg Tablet] 650 mg PO BID 12/09/17 Allergies/Adverse Reactions: ciprofloxacin [From Cipro] Allergy (Verified 04/18/17 15:19) Review of Systems All systems: reviewed and no additional remarkable complaints except as stated Review of Systems: Constitutional: ABSENT: chills, fatigue, fever(s), headache(s), weight gain, weight loss Eyes: ABSENT: visual disturbances Ears: ABSENT: hearing changes Cardiovascular: ABSENT: chest pain, dyspnea on exertion, edema, orthropnea, palpitations Respiratory: ABSENT: cough, dyspnea, hemoptysis Gastrointestinal: ABSENT: abdominal pain, constipation, diarrhea, hematemesis, hematochezia, nausea, vomiting Genitourinary: ABSENT: dysuria, hematuria Musculoskeletal: ABSENT: joint swelling Integumentary: ABSENT: rash, wounds Neurological: ABSENT: abnormal gait, abnormal speech, confusion, dizziness, focal weakness, numbness, syncope Psychiatric: ABSENT: anxiety, depression Endocrine: ABSENT: cold intolerance, heat intolerance, polydipsia, polyuria Hematologic/Lymphatic: ABSENT: easy bleeding, easy bruising, lymphadenopathy Physical Exam Vital Signs: Temp Pulse Resp BP Pulse Ox 97.7 F 62 16 110/47 L 94 12/10/17 07:53 12/10/17 07:53 12/10/17 07:53 12/10/17 07:53 12/10/17 07:53 Intake & Output 12/09/17 12/10/1712/11/18 06:59 06:59 06:59 Intake Total 762 705 Output Total 400 250 Balance 362 455 Weight 73.6 kg 76.8 kg Vitals during dialysis this morning: Blood pressure 133/56, blood pressure 75, blood flow rate of 350 mL/min, dialysate flow rate of 800 mL/min. Exam: General appearance: no acute distress, cooperative, well-developed, well- nourished Head exam: PRESENT: atraumatic, normocephalic Eye exam: PRESENT: Conjunctiva [place], EOMI, PERRLA. ABSENT: conjunctival injection, scleral icterus Mouth exam: PRESENT: moist, neck supple, tongue midline Neck exam: PRESENT: full ROM. ABSENT: carotid bruit, JVD, lymphadenopathy, thyromegaly Respiratory exam: PRESENT: clear to auscultation bilaterally. ABSENT: rales, rhonchi, stridor, wheezes Cardiovascular exam: PRESENT: RRR, +S1, +S2. ABSENT: systolic murmur Pulses: PRESENT: normal radial pulses, normal dorsalis pedis pulses GI/Abdominal exam: PRESENT: normal bowel sounds, soft. ABSENT: guarding, mass, tenderness Rectal exam: deferred Extremities exam: PRESENT: full ROM. ABSENT: calf tenderness, pedal edema Musculoskeletal: PRESENT: full ROM. ABSENT: deformity Neurological exam: PRESENT: alert, Awake, Oriented to person, Oriented to place , Oriented to time, reflexes normal, CN II-XII grossly intact. ABSENT: motor sensory deficit Psychiatric exam: PRESENT: appropriate affect, normal mood. ABSENT: homicidal ideation, suicidal ideation Skin exam: PRESENT: intact, dry, warm. ABSENT: rash Results Laboratory Results: 12/10/17 04:47 12/10/17 04:47 12/10/17 12/10/17 04:47 04:47 WBC 7.2 RBC 3.14 L Hgb 10.2 L Hct 29.6 L MCV 94 MCH 32.5 MCHC 34.5 RDW 14.1 H Plt Count 158 Seg Neutrophils % 63.2 Lymphocytes % 24.6 Monocytes % 8.4 Eosinophils % 3.2 Basophils % 0.6 Absolute Neutrophils 4.6 Absolute Lymphocytes 1.8 Absolute Monocytes 0.6 Absolute Eosinophils 0.2 Absolute Basophils 0.0 Sodium 144.2 Potassium 4.7 Chloride 102 Carbon Dioxide 25 Anion Gap 17 BUN 77 H D Creatinine 5.46 H Est GFR ( Amer) 12 L Est GFR (Non-Af Amer) 10 L Glucose 100 Calcium 7.6 L Impressions: Chest X-Ray 12/07/17 15:57 IMPRESSION: Possible hiatal hernia. No acute cardiopulmonary disease. Head CT 12/07/17 21:08 IMPRESSION: No acute intracranial finding. EVIDENCE OF ACUTE STROKE: NO. Assessment & Plan - Diagnosis (1) End-stage renal disease on hemodialysis Is this a current diagnosis for this admission?: Yes Plan: We will do dialysis today for 3 hours, using the patient's AV fistula, with 2 potassium bath, blood flow rate of 350 mL per minute, dialysate flow rate of 800 mL per minute, ultrafiltration 1 L as tolerated, no heparin and no Procrit during dialysis. Patient will be monitored throughout dialysis treatment. We will continue to supervise dialysis while here in the hospital. (2) Anemia in chronic kidney disease (CKD) Qualifiers: Chronic kidney disease stage: on chronic dialysis Qualified Code(s): N18.6 - End stage renal disease; D63.1 - Anemia in chronic kidney disease; D63.1 - Anemia in chronic kidney disease; Z99.2 - Dependence on renal dialysis; Z99.2 - Dependence on renal dialysis; Z99.2 - Dependence on renal dialysis; Z99.2 - Dependence on renal dialysis Is this a current diagnosis for this admission?: Yes Plan: Procrit as needed during dialysis. Currently he does not need any. (3) Hypertension Qualifiers: Hypertension type: essential hypertension Qualified Code(s): I10 - Essential (primary) hypertension Is this a current diagnosis for this admission?: Yes Plan: Well-controlled. (4) UTI (urinary tract infection) Qualifiers: Urinary tract infection type: site unspecified Is this a current diagnosis for this admission?: Yes Plan: Due to E. coli and Citrobacter koseri. Continue IV antibiotics per hospitalist service. (5) Sepsis Qualifiers: Sepsis type: Escherichia coli Qualified Code(s): A41.51 - Sepsis due to Escherichia coli [E. coli] Is this a current diagnosis for this admission?: Yes (6) Acute encephalopathy Is this a current diagnosis for this admission?: Yes Plan: Patient seems to be back to his baseline mental state. This is most likely initially due to UTI and hypotension. - Notes Notes: Thank you very much for this consultation. I will follow the patient with you. - Time Time Spent: 50 to 70 Minutes
[2017-12-10] MEDS: SODIUM BICARBONATE 650 MG TABLET PO SCH (13:38)
[2017-12-10] MEDS: DOCUSATE SODIUM 100 MG CAPSULE PO SCH (13:38)
[2017-12-10] MEDS: ISOSORBIDE MONONITRATE 20 MG TABLET PO SCH (13:39)
[2017-12-10 15:58] VITALS: BP 105/47
--- NOTE | 2017-12-10 20:25 | PDOC DISCHARGE SUMMARY ---
General - Admit/Disc Date/PCP Admission Date/Primary Care Provider: 12/07/17 23:11 Discharge Date: 12/10/17 - Discharge Diagnosis (1) Sepsis Is this a current diagnosis for this admission?: Yes (2) UTI (urinary tract infection) Is this a current diagnosis for this admission?: Yes (3) Encephalopathy acute Is this a current diagnosis for this admission?: Yes (4) ESRD (end stage renal disease) on dialysis Is this a current diagnosis for this admission?: Yes - Additional Information Resuscitation Status: Full Code Discharge Diet: Regular Discharge Activity: Activity As Tolerated Prescriptions: Cefdinir [Omnicef 300 mg Capsule] 1 cap PO BID #16 capsule Home Medications: Aspirin [Aspirin EC] 81 mg PO QPM 12/09/17 Atorvastatin Calcium [Lipitor 20 mg Tablet] 20 mg PO QHS 12/09/17 Folic Acid/Vitamin B Comp W-C [Nephrocaps Multiple Vitamin Capsule] 1 cap PO DAILY 12/09/17 Isosorbide Mononitrate [Ismo 20 mg Tablet] 20 mg PO BID 12/09/17 Magnesium Oxide [Mag-Ox 400 mg Tablet] 400 mg PO DAILY 12/09/17 Omeprazole 20 mg PO DAILY 12/09/17 Sodium Bicarbonate [Sodium Bicarbonate 650 mg Tablet] 650 mg PO BID 12/09/17 Cefdinir [Omnicef 300 mg Capsule] 1 cap PO BID #16 capsule 12/10/17 History of Present Illness History of Present Illness: Patient's was admitted after presentation as an HPI below: "TYLOR JIMENEZ is a 77 year old male with history of chronic kidney disease on hemodialysis Sunday. Patient presents after 12 hours of mild confusion and generalized weakness. Following dialysis he was administered vancomycin and gentamicin. He was profoundly fatigued with borderline hypotension brought to the emergency room for evaluation. He is found to have urinary tract infection receives Rocephin IV and referred to the hospitalist for admission. Patient denies pain or recent antibiotic use. Previous episodes of urinary tract infection have presented similarly in the past." Hospital Course Hospital Course: Patient was admitted and continued on IV Rocephin. E. coli and Citrobacter koseri sensitive to cephalosporins. He was seen in consultation by Dr. Cespedes of nephrology and had hemodialysis today. Patient is doing much better now, no fever or chills, no abdominal pain. His mental status is completely back to baseline. He feels ready to go home and is being discharged in stable condition. He will be treated with Cefdinir 300 mg orally twice daily 8 additional days for a total of at least 10 days of antibiotics. He is to follow -up with his primary care physician within 1 week. He is to continue his dialysis as previously scheduled. Physical Exam Vital Signs: Temp Pulse Resp BP Pulse Ox 97.7 F 62 16 105/47 L 94 12/10/17 15:54 12/10/17 15:54 12/10/17 15:54 12/10/17 15:54 12/10/17 15:54 Intake & Output 12/09/17 12/10/17 12/11/17 06:59 06:59 06:59 Intake Total 762 705 Output Total 400 250 Balance 362 455 Weight 73.6 kg 76.8 kg Results Laboratory Results: 12/10/17 04:47 12/10/17 04:47 12/10/17 12/10/17 04:47 04:47 WBC 7.2 RBC 3.14 L Hgb 10.2 L Hct 29.6 L MCV 94 MCH 32.5 MCHC 34.5 RDW 14.1 H Plt Count 158 Seg Neutrophils % 63.2 Lymphocytes % 24.6 Monocytes % 8.4 Eosinophils % 3.2 Basophils % 0.6 Absolute Neutrophils 4.6 Absolute Lymphocytes 1.8 Absolute Monocytes 0.6 Absolute Eosinophils 0.2 Absolute Basophils 0.0 Sodium 144.2 Potassium 4.7 Chloride 102 Carbon Dioxide 25 Anion Gap 17 BUN 77 H D Creatinine 5.46 H Est GFR ( Amer) 12 L Est GFR (Non-Af Amer) 10 L Glucose 100 Calcium 7.6 L Impressions: Chest X-Ray 12/07/17 15:57 IMPRESSION: Possible hiatal hernia. No acute cardiopulmonary disease. Head CT 12/07/17 21:08 IMPRESSION: No acute intracranial finding. EVIDENCE OF ACUTE STROKE: NO. Qualifiers - * PATIENT BEING DISCHARGED WITH ANY OF THE FOLLOWING DIAGNOSIS: No
== END 2017-12-10 14:15 | disposition home or self-care (01) | DRG 871 ==
LOC: ER 15:25 → EH 23:11 → 4N 12-08 02:24
PROVIDERS: ADMIT Internal Medicine; ATTEND Internal Medicine
PROC: 5A1D70Z Performance of Urinary Filtration, Intermittent, Less than 6 Hours Per Day (ICD-10-PCS; principal; 2017-12-10)
DX: A41.51 Sepsis due to Escherichia coli [E. coli] (principal); N18.6 End stage renal disease; G93.40 Encephalopathy, unspecified; N39.0 Urinary tract infection, site not specified; I13.2 Hypertensive heart and chronic kidney disease with heart failure and with stage 5 chronic kidney disease, or end stage renal disease; I50.9 Heart failure, unspecified; J44.9 Chronic obstructive pulmonary disease, unspecified; D63.1 Anemia in chronic kidney disease; E78.00 Pure hypercholesterolemia, unspecified; I73.9 Peripheral vascular disease, unspecified; E83.39 Other disorders of phosphorus metabolism; Z99.2 Dependence on renal dialysis
CPT/HCPCS: 36415; 70450; 71045; 80048; 80053; 81001; 82550; 82553; 82962; 83735; 84484; 85025; 87086; 87088; 87186; 94640; 94799; 96365; 99291; J0696; J1644; J3490; J7030; J7620

== ENCOUNTER 2018-03-08 18:28 | Inpatient (IN) | payer OTHER, MEDICARE ==
--- NOTE | 2018-03-08 18:51 | ER Document Report ---
ED General - General Stated Complaint: ALTERED MENTAL STATUS Time Seen by Provider: 03/08/18 18:39 Mode of Arrival: Medic Information source: Relative, Emergency Med Personnel Notes: This is a 77-year-old man with a history of end-stage renal disease (on hemodialysis), bladder cancer/prostate cancer with ileostomy, history of UTIs with urosepsis, who is brought in by EMS with an episode of confusion and fever shortly after finishing dialysis. TRAVEL OUTSIDE OF THE [place] IN LAST 30 DAYS: No - HPI Onset: Just prior to arrival Onset/Duration: Gradual Quality of pain: No pain Severity: None Pain Level: Denies Associated symptoms: Fever, Other - Altered mental status Exacerbated by: Denies Relieved by: Denies Similar symptoms previously: Yes Recently seen / treated by doctor: Yes - Related Data Allergies/Adverse Reactions: ciprofloxacin [From Cipro] Allergy (Verified 04/18/17 15:19) Past Medical History - General Information source: Patient - Social History Smoking Status: Never Smoker Cigarette use (# per day): No Chew tobacco use (# tins/day): No Frequency of alcohol use: None Drug Abuse: None Lives with: Family Family History: None, Malignancy Patient has suicidal ideation: No Patient has homicidal ideation: No - Past Medical History Cardiac Medical History: Reports: Hx Congestive Heart Failure, Hx Coronary Artery Disease, Hx Hypercholesterolemia, Hx Hypertension, Hx Peripheral Vascular Disease Pulmonary Medical History: Reports: Hx COPD - Possible Neurological Medical History: Denies: Hx Cerebrovascular Accident, Hx Seizures Renal/ Medical History: Reports: Hx End Stage Renal Disease - On hemodialysis Sunday and Sunday, Hx Peritoneal Dialysis Malignancy Medical History: Reports Hx Renal (Kidney) Cancer - Bladder and prostate cancer Musculoskeletal Medical History: Reports Hx Gout Psychiatric Medical History: Denies: Hx Depression Infectious Medical History: Reports: Hx C-Diff - Status post fecal transplant Past Surgical History: Reports: Hx Cardiac Catheterization, Hx Cardiac Surgery - CABG, Hx Coronary Artery Bypass Graft, Hx Genitourinary Surgery - urostomy, Hx Orthopedic Surgery - Right hip hemiarthroplasty August 2016, Hx Vascular Surgery - AAA repair, Other - Nephrostomy tube placement, creation of ileal conduit, prostatectomy - Immunizations Immunizations up to date: Yes Hx Diphtheria, Pertussis, Tetanus Vaccination: Yes Hx Pneumococcal Vaccination: 04/17/14 Review of Systems - Review of Systems Constitutional: denies: Chills, Fever EENT: No symptoms reported Cardiovascular: Dizziness. denies: Chest pain, Palpitations, Heart racing, Syncope Respiratory: denies: Cough, Hemoptysis, Short of breath Gastrointestinal: denies: Abdominal pain, Vomiting Genitourinary: denies: Flank pain, Hematuria Male Genitourinary: No symptoms reported Musculoskeletal: No symptoms reported Skin: No symptoms reported Hematologic/Lymphatic: No symptoms reported Neurological/Psychological: Confusion. denies: Depression, Paralysis, Seizure Physical Exam - Vital signs Vitals: Resp BP Pulse Ox 26 H 105/64 93 03/08/18 19:01 03/08/18 19:01 03/08/18 19:01 Notes: Physical exam: GENERAL: 77-year-old man, hard of hearing, no acute distress, he is febrile 102 HEAD: Atraumatic, normocephalic. EYES: Pupils equal round and reactive to light, extraocular movements intact, sclera anicteric, conjunctiva are normal. ENT: TMs normal, nares patent, oropharynx clear without exudates. Moist mucous membranes. NECK: Normal range of motion, supple without obvious mass or JVD. LUNGS: Breath sounds clear to auscultation bilaterally and equal. No wheezes rales or rhonchi. HEART: Regular rate and rhythm without murmurs, rubs or gallops. ABDOMEN: Soft, normoactive bowel sounds. Ileostomy draining, no abdominal tenderness or mass. EXTREMITIES: Normal range of motion, no pitting or edema. No clubbing or cyanosis. NEUROLOGICAL: Cranial nerves II through XII grossly intact. Normal speech, moving all extremities. PSYCH: Normal mood, normal affect. SKIN: Warm, Dry, normal turgor, no rashes or lesions noted. Course - Re-evaluation Re-evalutation: 03/08/18 23:29 Note: This is a 77-year-old male with multiple comorbidities who has a history of urosepsis complicated by hypotension. He often presents with confusion and fever. This is how he presented today. His lactic acid is mildly elevated at 2.9. He was febrile to 102. He does have evidence of a urine infection. Given his underlying comorbidities and history of sepsis with similar presentations, he will be admitted to the hospital and treated with IV antibiotics IV fluids. Given his underlying renal dysfunction (renal failure, on dialysis), his fluid resuscitation will be conservative in order to avoid fluid overload/CHF. - Vital Signs Vital signs: Temp Pulse Resp BP Pulse Ox 98.8 F 20 112/58 L 93 03/08/18 20:01 03/08/18 21:01 03/08/18 21:01 03/08/18 21:01 - Laboratory Result Diagrams: 03/08/18 18:57 03/08/18 18:57 Laboratory results interpreted by me: 03/08/18 03/08/18 03/08/18 18:57 18:57 18:57 RBC 4.14 L Hgb 12.9 L RDW 14.3 H Plt Count 142 L Seg Neutrophils % 85.6 H Lymphocytes % 7.2 L BUN 23 H Creatinine 2.76 H Est GFR ( Amer) 27 L Est GFR (Non-Af Amer) 23 L Glucose 157 H Lactic Acid 2.6 H Urine Protein Urine Urobilinogen Ur Leukocyte Esterase 03/08/18 18:57 RBC Hgb RDW Plt Count Seg Neutrophils % Lymphocytes % BUN Creatinine Est GFR ( Amer) Est GFR (Non-Af Amer) Glucose Lactic Acid Urine Protein 30 H Urine Urobilinogen 2.0 H Ur Leukocyte Esterase LARGE H - Diagnostic Test Radiology reviewed: Image reviewed, Reports reviewed - X-ray shows no infiltrates Critical Care Note - Critical Care Note Total time excluding time spent on procedures (mins): 50 Discharge - Discharge Clinical Impression: Altered mental status, UTI, SIRS Condition: Stable Disposition: ADMITTED INPATIENT Admitting Provider: Hospitalist - Dr Voss Unit Admitted: Telemetry
[2018-03-08] MEDS ORDERED: NORMAL SALINE 500 ML IV ONE (18:54)
[2018-03-08 19:20] LABS: ABSOLUTE LYMPHOCYTES (AUTO) 0.5 10^3/uL (0.5-4.7); ABSOLUTE MONOCYTES (AUTO) 0.4 10^3/uL (0.1-1.4); ABSOLUTE NEUT (AUTO) 5.9 10^3/uL (1.7-8.2); BASOPHILS % (AUTO) 0.4 % (0-2); EOSINOPHILS % (AUTO) 0.6 % (0-6); HEMATOCRIT 38.1 % (37.9-51.0); HEMOGLOBIN 12.9 g/dL (13.5-17.0); LYMPHOCYTES % (AUTO) 7.2 % (13-45); MEAN CORPUSCULAR HEMOGLOBIN 31.2 pg (27.0-33.4); MEAN CORPUSCULAR HGB CONC 33.8 g/dL (32.0-36.0); MEAN CORPUSCULAR VOLUME 92 fl (80-97); MONOCYTES % (AUTO) 6.2 % (3-13); PLATELET COUNT 142 10^3/uL (150-450); RED BLOOD COUNT 4.14 10^6/uL (4.35-5.55); RED CELL DISTRIBUTION WIDTH 14.3 % (11.5-14.0); SEGMENTED NEUTROPHILS % (AUTO) 85.6 % (42-78); TOTAL CELLS COUNTED % (AUTO) 100 %; WHITE BLOOD COUNT 6.9 10^3/uL (4.0-10.5)
[2018-03-08 19:40] LABS: ALANINE AMINOTRANSFERASE 24 U/L (21-72); ALBUMIN 4.3 g/dL (3.5-5.0); ALKALINE PHOSPHATASE 80 U/L (38-126); ANION GAP 15 (5-19); ASPARTATE AMINO TRANSFERASE 25 U/L (17-59); BILIRUBIN,DIRECT 0.4 mg/dL (0.0-0.4); BILIRUBIN,TOTAL 0.6 mg/dL (0.2-1.3); BLOOD UREA NITROGEN 23 mg/dL (7-20); CALCIUM 8.5 mg/dL (8.4-10.2); CARBON DIOXIDE 27 mmol/L (22-30); CHLORIDE 98 mmol/L (98-107); GLUCOSE 157 mg/dL (75-110); POTASSIUM 4.6 mmol/L (3.6-5.0); SODIUM 140.3 mmol/L (137-145); TOTAL PROTEIN 7.9 g/dL (6.3-8.2)
--- NOTE | 2018-03-08 20:00 | RADIOLOGY REPORT (SQ) ---
EXAM DESCRIPTION: CHEST SINGLE VIEW COMPLETED DATE/TIME: 03/08/2018 7:42 pm REASON FOR STUDY: fever COMPARISON: 12/07/2017. EXAM PARAMETERS: NUMBER OF VIEWS: One view. TECHNIQUE: Single frontal radiographic view of the chest acquired. RADIATION DOSE: NA LIMITATIONS: None. FINDINGS: LUNGS AND PLEURA: No opacities, masses or pneumothorax. No pleural effusion. MEDIASTINUM AND HILAR STRUCTURES: No masses. Contour normal. HEART AND VASCULAR STRUCTURES: Heart normal in size. Normal vasculature. BONES: No acute findings. HARDWARE: Sternotomy wires. OTHER: No other significant finding. IMPRESSION: NO ACUTE RADIOGRAPHIC FINDING IN THE CHEST. TECHNICAL DOCUMENTATION: JOB ID: [id number] [employer]- All Rights Reserved Reading location - IP/workstation name: [email or web address]
[2018-03-08 20:34] LABS: APPEARANCE,URINE CLOUDY; BILIRUBIN,URINE NEGATIVE (NEGATIVE); COLOR,URINE AMBER; GLUCOSE, URINE NEGATIVE (NEGATIVE); KETONES,URINE NEGATIVE (NEGATIVE); LEUKOCYTE ESTERASE,URINE LARGE (NEGATIVE); NITRITE,URINE NEGATIVE (NEGATIVE); PROTEIN,URINE 30 mg/dL (NEGATIVE); URINE SPECIFIC GRAVITY 1.015
[2018-03-08] MEDS ORDERED: CEFTRIAXONE 1 GM/D5W RTU 1 GM/50 ML RTUPB IV ONE (20:37)
[2018-03-08] MEDS ORDERED: CEFTRIAXONE INJ 1000 MG VIAL IV ONE (21:15)
[2018-03-08] MEDS ORDERED: ACETAMINOPHEN 325 MG TABLET PO PRN (21:52)
[2018-03-08] MEDS ORDERED: NORMAL SALINE 1000 ML 1,000 ML IV PRN (21:52)
[2018-03-08] MEDS ORDERED: ONDANSETRON 4 MG TAB.RAPDIS PO PRN (22:01)
[2018-03-09] MEDS ORDERED: LEVALBUTEROL HCL NEB 1.25 MG/3 ML AMPUL NEB PRN (01:45)
[2018-03-09] MEDS: HEPARIN SOD (PORCINE) 5,000 UNIT/ML 1 ML SYRINGE SUBCUT SCH ×3 (05:56→21:27)
--- NOTE | 2018-03-09 06:08 | PDOC H&P ---
History of Present Illness Admission Date/PCP: 03/08/18 21:08 Patient complains of: confusion, fever History of Present Illness: TYLOR JIMENEZ is a 77 year old male presenting to the emergency room secondary to confusion patient is currently unable to provide much meaningful history of present illness but states he lives with his family. Patient in the emergency department found to have a urinary tract infection. Patient is also instrument disease on dialysis. Patient has had a history of coronary disease status post bypass. The patient is resting comfortably in bed, does not appear to be in acute distress. Patient is very hard of hearing. Patient's confusion started shortly after he finished dialysis today. Past Medical History Cardiac Medical History: Reports: Congestive Heart Failure, Coronary Artery Disease, Hyperlipidema, Hypertension, Peripheral Vascular Disease Pulmonary Medical History: Reports: Chronic Obstructive Pulmonary Disease (COPD ) - Possible Neurological Medical History: Denies: Seizures Renal/ Medical History: Reports: End Stage Renal Disease - On hemodialysis Sunday and Sunday Malignancy Medical History: Reports: Renal (Kidney) Cancer - Bladder and prostate cancer Musculoskeltal Medical History: Reports: Gout Psychiatric Medical History: Denies: Depression Infectious Medical History: Reports: 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 Past Surgical History Past Surgical History: Reports: Cardiac Catheterization, Coronary Artery Bypass Graft, Orthopedic Surgery - Right hip hemiarthroplasty August 2016, Vascular Surgery - AAA repair, Other - Nephrostomy tube placement, creation of ileal conduit, prostatectomy Social History Information Source: Patient Lives with: Family Smoking Status: Never Smoker Frequency of Alcohol Use: None Hx Recreational Drug Use: No Drugs: None Hx Prescription Drug Abuse: No Family History Family History: None, Malignancy Parental Family History Reviewed: Yes Children Family History Reviewed: Yes Sibling(s) Family History Reviewed.: Yes Medication/Allergy Home Medications: Aspirin [Aspirin EC] 81 mg PO QHS 12/09/17 Atorvastatin Calcium [Lipitor 20 mg Tablet] 20 mg PO QHS 12/09/17 Folic Acid/Vitamin B Comp W-C [Nephrocaps Multiple Vitamin Capsule] 1 cap PO QHS 12/09/17 Isosorbide Mononitrate [Ismo 20 mg Tablet] 20 mg PO Q12 12/09/17 Magnesium Oxide [Mag-Ox 400 mg Tablet] 400 mg PO DAILY 12/09/17 Omeprazole 20 mg PO DAILY 12/09/17 Sodium Bicarbonate [Sodium Bicarbonate 650 mg Tablet] 650 mg PO Q12 12/09/17 Calcitriol [Rocaltrol 0.25 mcg Capsule] 0.25 mcg PO DAILY 03/08/18 Calcium Carbonate [Tums Chewable 500 mg Tab.chew] 500 mg PO QPM 03/08/18 Multivitamin [Tab-A-Maricel (Multiple Vitamin) Tablet] 1 tab PO DAILY 03/08/18 Allergies/Adverse Reactions: ciprofloxacin [From Cipro] Allergy (Verified 04/18/17 15:19) Review of Systems Constitutional: PRESENT: fever(s). ABSENT: chills, headache(s), weight gain, weight loss Eyes: ABSENT: visual disturbances Ears: ABSENT: hearing changes Cardiovascular: ABSENT: chest pain, dyspnea on exertion, edema, orthropnea, palpitations Respiratory: ABSENT: cough, hemoptysis Gastrointestinal: ABSENT: abdominal pain, constipation, diarrhea, hematemesis, hematochezia, nausea, vomiting Genitourinary: ABSENT: dysuria, hematuria Musculoskeletal: ABSENT: joint swelling Integumentary: ABSENT: rash, wounds Neurological: PRESENT: confusion. ABSENT: abnormal gait, abnormal speech, dizziness, focal weakness, syncope Psychiatric: ABSENT: anxiety, depression, homidical ideation, suicidal ideation Endocrine: ABSENT: cold intolerance, heat intolerance, polydipsia, polyuria Hematologic/Lymphatic: ABSENT: easy bleeding, easy bruising Physical Exam Vital Signs: Temp Pulse Resp BP Pulse Ox 99.5 F 95 18 109/52 L 90 L 03/09/18 03:40 03/09/18 03:40 03/09/18 03:40 03/09/18 03:40 03/09/18 03:40 Intake & Output 03/07/18 03/08/18 03/09/18 06:59 06:59 06:59 Weight 82.4 kg General appearance: PRESENT: no acute distress, well-developed, well-nourished Head exam: PRESENT: atraumatic, normocephalic Eye exam: PRESENT: conjunctiva pink, EOMI, PERRLA. ABSENT: scleral icterus Ear exam: PRESENT: normal external ear exam Mouth exam: PRESENT: moist, tongue midline Neck exam: ABSENT: carotid bruit, JVD, lymphadenopathy, thyromegaly Respiratory exam: PRESENT: clear to auscultation ejnni. ABSENT: rales, rhonchi, wheezes Cardiovascular exam: PRESENT: RRR. ABSENT: diastolic murmur, rubs, systolic murmur Pulses: PRESENT: normal dorsalis pedis pul Vascular exam: PRESENT: normal capillary refill GI/Abdominal exam: PRESENT: normal bowel sounds, soft. ABSENT: distended, guarding, mass, organolmegaly, rebound, tenderness Rectal exam: PRESENT: deferred Extremities exam: PRESENT: full ROM. ABSENT: calf tenderness, clubbing, pedal edema Neurological exam: PRESENT: alert, awake, oriented to person, oriented to place , oriented to time, oriented to situation, CN II-XII grossly intact. ABSENT: motor sensory deficit Psychiatric exam: PRESENT: appropriate affect, normal mood. ABSENT: homicidal ideation, suicidal ideation Skin exam: PRESENT: dry, intact, warm. ABSENT: cyanosis, rash Results Laboratory Results: 03/09/18 00:02 Lactic Acid 1.3 Impressions: Chest X-Ray 03/08/18 18:52 IMPRESSION: NO ACUTE RADIOGRAPHIC FINDING IN THE CHEST. Assessment & Plan - Diagnosis (1) Sepsis secondary to UTI Is this a current diagnosis for this admission?: Yes (2) ESRD (end stage renal disease) on dialysis Is this a current diagnosis for this admission?: Yes (3) Urinary tract infection with fever Is this a current diagnosis for this admission?: Yes (4) Altered mental status Qualifiers: Altered mental status type: unspecified Qualified Code(s): R41.82 - Altered mental status, unspecified Is this a current diagnosis for this admission?: Yes Plan: Patient admitted to inpatient telemetry for further monitoring and evaluation. Patient has end-stage renal disease on dialysis Sunday with last session yesterday. Patient does have a urinary tract infection emergency department, started on Rocephin. To be continued on Rocephin 1 g every 24 hours. Blood, urine cultures pending. Tylenol as needed pain, fever. Will avoid nephrotoxic medications. Continue patient's home medications. Maintain IV fluids overnight. Repeat CBC, BMP in a.m. We will continue to monitor patient closely. Patient is a full code.
[2018-03-09 07:31] LABS: ABSOLUTE LYMPHOCYTES (AUTO) 0.9 10^3/uL (0.5-4.7); ABSOLUTE MONOCYTES (AUTO) 0.6 10^3/uL (0.1-1.4); ABSOLUTE NEUT (AUTO) 3.9 10^3/uL (1.7-8.2); BASOPHILS % (AUTO) 0.6 % (0-2); EOSINOPHILS % (AUTO) 0.6 % (0-6); HEMATOCRIT 36.4 % (37.9-51.0); HEMOGLOBIN 12.3 g/dL (13.5-17.0); LYMPHOCYTES % (AUTO) 16.3 % (13-45); MEAN CORPUSCULAR HGB CONC 33.8 g/dL (32.0-36.0); MEAN CORPUSCULAR VOLUME 92 fl (80-97); MONOCYTES % (AUTO) 10.5 % (3-13); PLATELET COUNT 118 10^3/uL (150-450); RED BLOOD COUNT 3.96 10^6/uL (4.35-5.55); RED CELL DISTRIBUTION WIDTH 14.4 % (11.5-14.0); TOTAL CELLS COUNTED % (AUTO) 100 %; WHITE BLOOD COUNT 5.4 10^3/uL (4.0-10.5)
[2018-03-09 07:52] LABS: ANION GAP 15 (5-19); BLOOD UREA NITROGEN 32 mg/dL (7-20); CALCIUM 8.3 mg/dL (8.4-10.2); CARBON DIOXIDE 27 mmol/L (22-30); CHLORIDE 102 mmol/L (98-107); GLUCOSE 111 mg/dL (75-110); POTASSIUM 4.3 mmol/L (3.6-5.0); SODIUM 143.5 mmol/L (137-145)
[2018-03-09] MEDS: MAGNESIUM OXIDE 400 MG TABLET PO SCH (09:41)
[2018-03-09] MEDS: CALCITRIOL 0.25 MCG CAPSULE PO SCH (09:41)
[2018-03-09] MEDS: LANSOPRAZOLE 15 MG TAB.RAP.DR PO SCH (09:41)
[2018-03-09] MEDS: MULTIVITAMIN TABLET PO SCH (09:41)
[2018-03-09] MEDS: SODIUM BICARBONATE 650 MG TABLET PO SCH ×2 (09:41→21:27)
[2018-03-09] MEDS: ISOSORBIDE MONONITRATE 20 MG TABLET PO SCH ×2 (10:35→21:27)
--- NOTE | 2018-03-09 13:41 | PROGRESS NOTE E ---
Progress Note NAME: TYLOR JIMENEZ : 1940 AGE: 77Y DATE: 03/09/2018 ROOM: 327 SUBJECTIVE: The patient is lying in bed. He states that he feels a little better today than when he came in. There have been no reported episodes of vomiting or diarrhea. The patient has been afebrile since admission and the patient does not voice any other concerns at this time. REVIEW OF SYSTEMS: The rest of the review of systems is negative. MEDICATION: Medication has been reviewed. OBJECTIVE: GENERAL: The patient is a 77-year-old male who is awake, alert, and oriented to person, place, time, and situation. He is verbal, conversational, and does not appear to be in any acute distress. VITAL SIGNS: Temperature is 98.4, pulse 70, respirations 18, blood pressure is 123/53, oxygen saturation is 94% on room air. SKIN: Warm and dry. No rash. He is not diaphoretic. HEENT: Pupils equal, round, and reactive to light and accommodation. Conjunctivae pink. NECK: There is no evidence of JVD. CARDIOVASCULAR SYSTEM: Heart is regular. There is no murmur or rub. CHEST: Clear, symmetrical, unlabored. ABDOMEN: Soft, nontender, and nondistended. BACK: No CVA tenderness or sacral edema. EXTREMITIES: No clubbing, cyanosis, edema. The patient's left forearm has a bruit thrill. PSYCHIATRIC: Appropriate affect, pleasant mood, just a little delay. DIAGNOSTIC DATA: Lab values are as follows: Hematology obtained on 03/09/2018: WBCs are 5.4, hemoglobin is 12.3, hematocrit is 36.4, platelet count is 118,000. Chemistries obtained on 03/09/2018: Sodium is 143, potassium 4.3, chloride is 102, carbon dioxide 27, BUN 32, creatinine is 3.52, glucose 111, calcium is 8.3. IMPRESSION AND PLAN: 1. URINARY TRACT INFECTION. CURRENTLY AWAITING CULTURE AND SENSITIVITY. APPEARS TO BE GRAM-NEGATIVE NASRIN. Will continue Rocephin since the patient has had a good response and follow. 2. METABOLIC ENCEPHALOPATHY SECONDARY TO #1. THE PATIENT DOES APPEAR TO BE IMPROVING. 3. SEPSIS SECONDARY TO #1. THE PATIENT WAS FEBRILE WITH LEUKOCYTOSIS WITH A URINARY SOURCE, APPEARS TO BE RESOLVED. 4. END-STAGE RENAL DISEASE WITH HEMODIALYSIS ON SUNDAY, SUNDAY, SUNDAY. Hopefully we can get the patient discharged tomorrow for dialysis on Sunday. 5. CHRONIC OBSTRUCTIVE PULMONARY DISEASE. THE PATIENT HAS NO EVIDENCE OF EXACERBATION. 6. HISTORY OF RENAL CELL CARCINOMA. 7. ANEMIA OF UNDERLYING CHRONIC DISEASE. OVERALL, THIS DOES APPEAR TO BE IMPROVED. DISPOSITION: The patient is a DO NOT INTUBATE. Pending the patient's symptomatology and diagnostic findings, will reevaluate in the a.m. The patient can be downgraded to a medical bed with telemetry. TIME SPENT: Time spent on this followup including assessment and plan, physical examination, patient education, and review of records was 20 minutes. DICTATING PHYSICIAN: SERENITY MAY NP [id number] PHY#: [id number] ID: [id number] JOB#: [id number] ACCT: [id number] cc: >
[2018-03-09] MEDS: CALCIUM CARBONATE 500 MG TAB.CHEW PO SCH (17:15)
[2018-03-09] MEDS: ATORVASTATIN CALCIUM 20 MG TABLET PO SCH (21:27)
[2018-03-09] MEDS: ASPIRIN 81 MG TABLET, ENT COATED PO SCH (21:27)
[2018-03-09] MEDS: CEFTRIAXONE SODIUM 1,000 MG in NORMAL SALINE 50 ML IV SCH (21:27)
[2018-03-09] MEDS: FOLIC ACID/VITAMIN B COMP W-C CAPSULE PO SCH (21:27)
[2018-03-10] MEDS: HEPARIN SOD (PORCINE) 5,000 UNIT/ML 1 ML SYRINGE SUBCUT SCH ×3 (05:34→21:13)
[2018-03-10 07:14] LABS: ABSOLUTE EOSINOPHILS # (AUTO) 0.1 10^3/uL (0.0-0.6); ABSOLUTE LYMPHOCYTES (AUTO) 1.5 10^3/uL (0.5-4.7); ABSOLUTE MONOCYTES (AUTO) 0.6 10^3/uL (0.1-1.4); ABSOLUTE NEUT (AUTO) 2.1 10^3/uL (1.7-8.2); BASOPHILS % (AUTO) 1.1 % (0-2); EOSINOPHILS % (AUTO) 1.8 % (0-6); HEMATOCRIT 33.8 % (37.9-51.0); HEMOGLOBIN 11.4 g/dL (13.5-17.0); LYMPHOCYTES % (AUTO) 33.9 % (13-45); MEAN CORPUSCULAR HGB CONC 33.6 g/dL (32.0-36.0); MEAN CORPUSCULAR VOLUME 92 fl (80-97); MONOCYTES % (AUTO) 14.6 % (3-13); PLATELET COUNT 114 10^3/uL (150-450); RED BLOOD COUNT 3.66 10^6/uL (4.35-5.55); RED CELL DISTRIBUTION WIDTH 14.5 % (11.5-14.0); SEGMENTED NEUTROPHILS % (AUTO) 48.6 % (42-78); TOTAL CELLS COUNTED % (AUTO) 100 %; WHITE BLOOD COUNT 4.3 10^3/uL (4.0-10.5)
[2018-03-10] MEDS: LANSOPRAZOLE 15 MG TAB.RAP.DR PO SCH (08:14)
[2018-03-10] MEDS: CALCITRIOL 0.25 MCG CAPSULE PO SCH (09:38)
[2018-03-10] MEDS: ISOSORBIDE MONONITRATE 20 MG TABLET PO SCH ×2 (09:38→21:14)
[2018-03-10] MEDS: MULTIVITAMIN TABLET PO SCH (09:39)
[2018-03-10] MEDS: SODIUM BICARBONATE 650 MG TABLET PO SCH ×2 (09:39→21:14)
[2018-03-10] MEDS: MAGNESIUM OXIDE 400 MG TABLET PO SCH (09:39)
[2018-03-10] MEDS: CALCIUM CARBONATE 500 MG TAB.CHEW PO SCH (17:01)
[2018-03-10] MEDS: CEFTRIAXONE SODIUM 1,000 MG in NORMAL SALINE 50 ML IV SCH (21:13)
[2018-03-10] MEDS: FOLIC ACID/VITAMIN B COMP W-C CAPSULE PO SCH (21:14)
[2018-03-10] MEDS: ATORVASTATIN CALCIUM 20 MG TABLET PO SCH (21:14)
[2018-03-10] MEDS: ASPIRIN 81 MG TABLET, ENT COATED PO SCH (21:14)
[2018-03-11] MEDS: HEPARIN SOD (PORCINE) 5,000 UNIT/ML 1 ML SYRINGE SUBCUT SCH ×2 (05:11→13:23)
[2018-03-11 07:08] LABS: HEMOGLOBIN 11.8 g/dL (13.5-17.0); MEAN CORPUSCULAR HGB CONC 33.6 g/dL (32.0-36.0); MEAN CORPUSCULAR VOLUME 92 fl (80-97); PLATELET COUNT 112 10^3/uL (150-450); RED CELL DISTRIBUTION WIDTH 13.9 % (11.5-14.0); WHITE BLOOD COUNT 5.7 10^3/uL (4.0-10.5)
[2018-03-11 07:39] LABS: ANION GAP 15 (5-19); BLOOD UREA NITROGEN 62 mg/dL (7-20); CALCIUM 8.4 mg/dL (8.4-10.2); CARBON DIOXIDE 26 mmol/L (22-30); CHLORIDE 105 mmol/L (98-107); GLUCOSE 103 mg/dL (75-110); POTASSIUM 4.7 mmol/L (3.6-5.0); SODIUM 145.6 mmol/L (137-145)
[2018-03-11] MEDS: LANSOPRAZOLE 15 MG TAB.RAP.DR PO SCH (11:22)
[2018-03-11] MEDS: MULTIVITAMIN TABLET PO SCH (13:13)
[2018-03-11] MEDS: MAGNESIUM OXIDE 400 MG TABLET PO SCH (13:13)
[2018-03-11] MEDS: SODIUM BICARBONATE 650 MG TABLET PO SCH (13:13)
[2018-03-11] MEDS: CALCITRIOL 0.25 MCG CAPSULE PO SCH (13:13)
[2018-03-11] MEDS: ISOSORBIDE MONONITRATE 20 MG TABLET PO SCH (13:19)
--- NOTE | 2018-03-11 13:34 | PDOC DISCHARGE SUMMARY ---
General - Admit/Disc Date/PCP Admission Date/Primary Care Provider: 03/08/18 21:08 Discharge Date: 03/11/18 - Discharge Diagnosis (1) Altered mental status Is this a current diagnosis for this admission?: Yes (2) ESRD (end stage renal disease) on dialysis Is this a current diagnosis for this admission?: Yes (3) Sepsis secondary to UTI Is this a current diagnosis for this admission?: Yes - Additional Information Discharge Diet: As Tolerated Discharge Activity: Activity As Tolerated Prescriptions: Ciprofloxacin/Ciprofloxa HCl [Ciprofloxacin ER 500 mg Tablet] 500 mg PO DAILY # 10 tbmp.24hr L. Rhamnosus GG/Inulin [Culturelle Capsule] 1 each PO BID #20 cap.[email or web address] Home Medications: Aspirin [Aspirin EC] 81 mg PO QHS 12/09/17 Atorvastatin Calcium [Lipitor 20 mg Tablet] 20 mg PO QHS 12/09/17 Folic Acid/Vitamin B Comp W-C [Nephrocaps Multiple Vitamin Capsule] 1 cap PO QHS 12/09/17 Isosorbide Mononitrate [Ismo 20 mg Tablet] 20 mg PO Q12 12/09/17 Magnesium Oxide [Mag-Ox 400 mg Tablet] 400 mg PO DAILY 12/09/17 Omeprazole 20 mg PO DAILY 12/09/17 Sodium Bicarbonate [Sodium Bicarbonate 650 mg Tablet] 650 mg PO Q12 12/09/17 Calcitriol [Rocaltrol 0.25 mcg Capsule] 0.25 mcg PO DAILY 03/08/18 Calcium Carbonate [Tums Chewable 500 mg Tab.chew] 500 mg PO QPM 03/08/18 Multivitamin [Tab-A-Maricel (Multiple Vitamin) Tablet] 1 tab PO DAILY 03/08/18 Ciprofloxacin/Ciprofloxa HCl [Ciprofloxacin ER 500 mg Tablet] 500 mg PO DAILY # 10 tbmp.24hr 03/11/18 L. Rhamnosus GG/Inulin [Culturelle Capsule] 1 each PO BID #20 cap.[email or web address] History of Present Illness History of Present Illness: TYLOR JIMENEZ is a 77 year old male presenting to the emergency room secondary to confusion patient is currently unable to provide much meaningful history of present illness but states he lives with his family. Patient in the emergency department found to have a urinary tract infection. Patient is also instrument disease on dialysis. Patient has had a history of coronary disease status post bypass. The patient is resting comfortably in bed, does not appear to be in acute distress. Patient is very hard of hearing. Patient's confusion started shortly after he finished dialysis today. Hospital Course Hospital Course: The patient had complicated UTI. His urine cultures positive for Klebsiella. He was initially started on ceftriaxone empirically. We will discharge him on 10 day course of p.o. Cipro 500 mg daily and that should take it after dialysis on the days of dialysis. Physical Exam Vital Signs: Temp Pulse Resp BP Pulse Ox 98.4 F 69 18 129/62 H 92 03/11/18 03:26 03/11/18 03:26 03/11/18 03:26 03/11/18 03:26 03/11/18 03:26 Intake & Output 03/10/18 03/11/18 03/12/18 06:59 06:59 06:59 Intake Total 1897 1569 118 Output Total 650 650 Balance 1247 919 118 Weight 182 lb 15.739 oz 185 lb 3.013 oz General appearance: PRESENT: no acute distress, cooperative Head exam: PRESENT: atraumatic, normocephalic Eye exam: PRESENT: EOMI. ABSENT: conjunctival injection Ear exam: ABSENT: bleeding, drainage Throat exam: ABSENT: post pharyngeal erythema Neck exam: ABSENT: meningismus, tenderness, thyromegaly Respiratory exam: PRESENT: decreased breath sounds - Chronic, wheezes - Chronic. ABSENT: accessory muscle use Cardiovascular exam: PRESENT: RRR GI/Abdominal exam: PRESENT: other - Nephrostomy tube in place Neurological exam: PRESENT: alert, altered, awake Results Laboratory Results: 03/11/18 06:31 03/11/18 06:31 03/11/18 03/11/18 06:31 06:31 WBC 5.7 RBC 3.80 L Hgb 11.8 L Hct 35.0 L MCV 92 MCH 31.0 MCHC 33.6 RDW 13.9 Plt Count 112 L Sodium 145.6 H Potassium 4.7 Chloride 105 Carbon Dioxide 26 Anion Gap 15 BUN 62 H Creatinine 4.76 H Est GFR ( Amer) 15 L Est GFR (Non-Af Amer) 12 L Glucose 103 Calcium 8.4 Impressions: Chest X-Ray 03/08/18 18:52 IMPRESSION: NO ACUTE RADIOGRAPHIC FINDING IN THE CHEST. Qualifiers - * PATIENT BEING DISCHARGED WITH ANY OF THE FOLLOWING DIAGNOSIS: No
--- NOTE | 2018-03-11 13:58 | PDOC CONSULTATION ---
Consultation Consult Date: 03/11/18 Consult reason:: Hemodialysis. History of Present Illness Admission Date/PCP: 03/08/18 21:08 History of Present Illness: TYLOR JIMENEZ is a 77 year old male with history of ESRD in the background of hypertension and patient of Dr. Cespedes who is away was admitted with history of altered mental status. Evaluations revealed that he had UTI from Klebsiella with sepsis. He was begun on antibiotics and has responded. I am seeing him today on undergoing dialysis without any issues. He is aware of his surroundings and is oriented 3. He is able to recognize me from [facility] dialysis unit. He denies any history of chest pain shortness of breath headaches or focal deficits. Labs and medications were reviewed with the patient. Dialysis orders were reviewed with the treating dialysis nurse. Past Medical History Cardiac Medical History: Reports: Coronary Artery Disease, Hyperlipidemia, Hypertension-primary, Peripheral Vascular Disease Pulmonary Medical History: Reports: Chronic Obstructive Pulmonary Disease (COPD ) - Possible Neurological Medical History: Denies: Seizures Renal/ Medical History: Reports: End Stage Renal Disease - On hemodialysis Sunday and Sunday, Hyperphosphatemia, Metabolic Acidosis, Recurrent UTI, Secondary Hyperparathyroidism Malignancy Medical History: Reports: Renal (Kidney) Cancer - Bladder and prostate cancer Musculoskeltal Medical History: Reports: Gout Psychiatric Medical History: Denies: Depression Infectious Medical History: Reports: 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 Hematology Medical History: Reports Anemia of Chronic Kidney Disease Past Surgical History Past Surgical History: Reports: Cardiac Catheterization, Coronary Artery Bypass Graft, Cystectomy, Dialysis Access Surgery AVF, Orthopedic Surgery - Right hip hemiarthroplasty August 2016, Vascular Surgery - AAA repair, Other - Nephrostomy tube placement, creation of ileal conduit, prostatectomy Social History Lives with: Family Smoking Status: Never Smoker Frequency of Alcohol Use: None Hx Recreational Drug Use: No Drugs: None Hx Prescription Drug Abuse: No Family History Parental Family History Reviewed: Yes - Negative for ESRD. Children Family History Reviewed: No Sibling(s) Family History Reviewed.: No Medication/Allergy Home Medications: Aspirin [Aspirin EC] 81 mg PO QHS 12/09/17 Atorvastatin Calcium [Lipitor 20 mg Tablet] 20 mg PO QHS 12/09/17 Folic Acid/Vitamin B Comp W-C [Nephrocaps Multiple Vitamin Capsule] 1 cap PO QHS 12/09/17 Isosorbide Mononitrate [Ismo 20 mg Tablet] 20 mg PO Q12 12/09/17 Magnesium Oxide [Mag-Ox 400 mg Tablet] 400 mg PO DAILY 12/09/17 Omeprazole 20 mg PO DAILY 12/09/17 Sodium Bicarbonate [Sodium Bicarbonate 650 mg Tablet] 650 mg PO Q12 12/09/17 Calcitriol [Rocaltrol 0.25 mcg Capsule] 0.25 mcg PO DAILY 03/08/18 Calcium Carbonate [Tums Chewable 500 mg Tab.chew] 500 mg PO QPM 03/08/18 Multivitamin [Tab-A-Maricel (Multiple Vitamin) Tablet] 1 tab PO DAILY 03/08/18 Ciprofloxacin/Ciprofloxa HCl [Ciprofloxacin ER 500 mg Tablet] 500 mg PO DAILY # 10 tbmp.24hr 03/11/18 L. Rhamnosus GG/Inulin [Culturelle Capsule] 1 each PO BID #20 cap.[email or web address] Allergies/Adverse Reactions: ciprofloxacin [From Cipro] Allergy (Verified 04/18/17 15:19) Review of Systems Constitutional: ABSENT: fatigue, fever(s), headache(s), night sweats, weakness Ears: PRESENT: hearing changes Nose, Mouth, and Throat: ABSENT: mouth pain, sore throat Cardiovascular: ABSENT: chest pain, dyspnea on exertion, edema, orthropnea, palpitations Gastrointestinal: ABSENT: abdominal pain, coffee ground emesis, diarrhea, dysphagia, heartburn, hematemesis, hematochezia Genitourinary: ABSENT: dysuria, hematuria Neurological: ABSENT: dizziness, focal weakness Hematologic/Lymphatic: ABSENT: easy bruising, lymphadenopathy Physical Exam Vital Signs: Temp Pulse Resp BP Pulse Ox 98.4 F 69 18 129/62 H 92 03/11/18 03:26 03/11/18 03:26 03/11/18 03:26 03/11/18 03:26 03/11/18 03:26 Intake & Output 03/10/18 03/11/18 03/12/18 06:59 06:59 06:59 Intake Total 1897 1569 118 Output Total 650 650 Balance 1247 919 118 Weight 83 kg 84 kg General appearance: PRESENT: no acute distress Eye exam: PRESENT: conjunctiva pink, EOMI, PERRLA Ear exam: PRESENT: normal external ear exam Mouth exam: PRESENT: moist, neck supple Neck exam: ABSENT: lymphadenopathy, meningismus, tenderness, thyromegaly, tracheal deviation Respiratory exam: PRESENT: clear to auscultation jenni. ABSENT: crackles Cardiovascular exam: PRESENT: +S1, +S2, systolic murmur GI/Abdominal exam: PRESENT: normal bowel sounds, soft. ABSENT: organomegaly, tenderness Extremities exam: ABSENT: pedal edema Neurological exam: PRESENT: alert, awake, oriented to person, oriented to place Skin exam: ABSENT: erythema, mottled, rash, skin tears Results Laboratory Results: 03/11/18 06:31 03/11/18 06:31 03/11/18 03/11/18 06:31 06:31 WBC 5.7 RBC 3.80 L Hgb 11.8 L Hct 35.0 L MCV 92 MCH 31.0 MCHC 33.6 RDW 13.9 Plt Count 112 L Sodium 145.6 H Potassium 4.7 Chloride 105 Carbon Dioxide 26 Anion Gap 15 BUN 62 H Creatinine 4.76 H Est GFR ( Amer) 15 L Est GFR (Non-Af Amer) 12 L Glucose 103 Calcium 8.4 Impressions: Chest X-Ray 03/08/18 18:52 IMPRESSION: NO ACUTE RADIOGRAPHIC FINDING IN THE CHEST. Assessment & Plan - Diagnosis (1) Altered mental status Qualifiers: Altered mental status type: unspecified Qualified Code(s): R41.82 - Altered mental status, unspecified Is this a current diagnosis for this admission?: Yes Plan: Currently resolving very well. Secondary to UTI and sepsis. Patient on antibiotics from IV being converted to p.o. on discharge soon. (2) ESRD (end stage renal disease) on dialysis Is this a current diagnosis for this admission?: Yes Plan: Patient seen by undergoing dialysis. He is undergoing dialysis without any issues. Vital signs are stable. Dialysis is being supervised to ensure safe and smooth procedure. Plan to remove it in 1 and 2 L as tolerated. Labs and medications were reviewed with patient and the nurse. (3) Sepsis secondary to UTI Is this a current diagnosis for this admission?: Yes Plan: Has responded well to current management including antibiotics. (4) Hypertension Qualifiers: Hypertension type: essential hypertension Qualified Code(s): I10 - Essential (primary) hypertension Plan: Controlled.
[2018-03-11 15:05] VITALS: BP 114/93
== END 2018-03-11 16:24 | disposition home or self-care (01) | DRG 871 ==
LOC: ER 18:28 → EH 21:08 → 3S 03-09 00:30
PROVIDERS: ADMIT Family Medicine; ATTEND Family Medicine
PROC: 5A1D70Z Performance of Urinary Filtration, Intermittent, Less than 6 Hours Per Day (ICD-10-PCS; principal; 2018-03-11)
DX: A41.9 Sepsis, unspecified organism (principal); N18.6 End stage renal disease; G93.41 Metabolic encephalopathy; N39.0 Urinary tract infection, site not specified; I13.2 Hypertensive heart and chronic kidney disease with heart failure and with stage 5 chronic kidney disease, or end stage renal disease; I25.10 Atherosclerotic heart disease of native coronary artery without angina pectoris; D63.1 Anemia in chronic kidney disease; I50.9 Heart failure, unspecified; Z99.2 Dependence on renal dialysis; M10.9 Gout, unspecified; E78.5 Hyperlipidemia, unspecified; I73.9 Peripheral vascular disease, unspecified; Z95.1 Presence of aortocoronary bypass graft; Z85.46 Personal history of malignant neoplasm of prostate; Z85.51 Personal history of malignant neoplasm of bladder; Z79.82 Long term (current) use of aspirin; Z88.1 Allergy status to other antibiotic agents; Z93.2 Ileostomy status
CPT/HCPCS: 36415; 71045; 80048; 80053; 81001; 83605; 85025; 85027; 87040; 87086; 87088; 87186; 94640; 96360; 99291; J0696; J1644; J3490; J7030; J7040

== ENCOUNTER 2018-04-17 02:10 | Inpatient (IN) | payer OTHER, MEDICARE ==
[2018-04-17] MEDS ORDERED: ALBUTEROL SULFATE 0.083% NEB 2.5 MG/3 ML AMPUL NEB ONE (02:35)
--- NOTE | 2018-04-17 02:39 | ER Document Report ---
ED General - General Chief Complaint: Chest Pain Stated Complaint: CHEST PAIN Time Seen by Provider: 04/17/18 02:23 Notes: Patient is a 77-year-old male presents with complaints of an onset of chest pain. He said it felt like a heaviness and pressure on his chest. He woke up his son and asked him to take him to the hospital. They called the ambulance. He was given aspirin and nitro. Nitro relieved his pain. Is currently pain- free. Does have previous history of coronary bypass 22 years ago. He is followed by the [facility]. He has not had any recurrent heart issues since the bypass of years ago. He quit smoking 7 years ago. He is on dialysis Sunday, Sunday, Sunday due to end-stage renal disease. His fisher pound net or trap is Dr. Cespedes. Patient does have some obvious wheezing. Patient's son said that he frequently gets wheezing. He supposed to take breathing treatments but does not take them as often as he should. Patient does not have previous history of recurrent sepsis. He has not had any fevers over last few days and has not had any symptoms of infection. TRAVEL OUTSIDE OF THE [place] IN LAST 30 DAYS: No - Related Data Allergies/Adverse Reactions: ciprofloxacin [From Cipro] Allergy (Verified 04/18/17 15:19) Past Medical History - Social History Smoking Status: Unknown if Ever Smoked Frequency of alcohol use: None Drug Abuse: None Family History: None, Malignancy Patient has suicidal ideation: No Patient has homicidal ideation: No - Past Medical History Cardiac Medical History: Reports: Hx Congestive Heart Failure, Hx Coronary Artery Disease, Hx Hypercholesterolemia, Hx Hypertension, Hx Peripheral Vascular Disease Pulmonary Medical History: Reports: Hx COPD - Possible Neurological Medical History: Denies: Hx Cerebrovascular Accident, Hx Seizures Renal/ Medical History: Reports: Hx End Stage Renal Disease - On hemodialysis Sunday and Sunday. Denies: Hx Peritoneal Dialysis Malignancy Medical History: Reports Hx Renal (Kidney) Cancer - Bladder and prostate cancer Musculoskeletal Medical History: Reports Hx Gout Psychiatric Medical History: Denies: Hx Depression Infectious Medical History: Reports: Hx C-Diff - Status post fecal transplant Past Surgical History: Reports: Hx Cardiac Catheterization, Hx Cardiac Surgery - CABG, Hx Coronary Artery Bypass Graft, Hx Genitourinary Surgery - urostomy, Hx Orthopedic Surgery - Right hip hemiarthroplasty August 2016, Hx Vascular Surgery - AAA repair, Other - Nephrostomy tube placement, creation of ileal conduit, prostatectomy - Immunizations Immunizations up to date: Yes Hx Diphtheria, Pertussis, Tetanus Vaccination: Yes Hx Pneumococcal Vaccination: 04/17/14 Review of Systems - Review of Systems Notes: My Normal Review Basic REVIEW OF SYSTEMS: CONSTITUTIONAL : Denies fever, chills, or sweats. Denies recent illness. CARDIOVASCULAR: Had chest pain RESPIRATORY: Denies cough, cold, or chest congestion. Denies shortness of breath, difficulty breathing, or wheezing. GASTROINTESTINAL: Denies abdominal pain. Denies nausea, vomiting, or diarrhea. Denies constipation. Last BM: GENITOURINARY: Denies difficulty urinating, painful urination, burning, frequency, or blood in urine. MUSCULOSKELETAL: Denies neck or back pain or joint pain or swelling. SKIN: Denies rash or skin lesions. NEUROLOGICAL: Denies altered mental status or loss of consciousness. D ALL OTHER SYSTEMS REVIEWED AND NEGATIVE. Physical Exam - Vital signs Vitals: Resp Pulse Ox 25 H 95 04/17/18 02:21 04/17/18 02:21 - Notes Notes: General Appearance: Well nourished, alert, cooperative, no acute distress, no obvious discomfort. Well appearing. Vitals: reviewed, See vital signs table. Head: no swelling or tenderness to the head Eyes: PERRL, EOMI, Conjuctiva clear Mouth: No decreasd moisture Neck: Supple, no neck tenderness, No thyromegaly Lungs: Some scattered wheezing, No rales, No rhonci, No accessory muscle use, good air exchange bilaterally. Heart: Normal rate, Regular rythm, No murmur, no rub Abdomen: Normal BS, soft, No rigidity, No abdominal tenderness, No guarding, no rebound, no abdominal masses, no organomegaly Extremities: good pulses in all extremities, no swelling or tenderness in the extremities, no edema. Fistula in left arm. Skin: warm, dry, appropriate color, no rash Neuro: speech clear, oriented x 3, normal affect, responds appropriately to questions. Course - Re-evaluation Re-evalutation: 04/17/18 05:00 Patient's chest pain remains resolved after receiving nitro in the ambulance. He looks well. His initial troponin and EKG did not show any ischemic changes. Due to his history of coronary disease and his heart score of 5 I feel it is appropriate to have him admitted for chest pain workup. He is due for dialysis today. His fisher pound net or trap Dr. Cespedes. I did call our nursing dope dry house operator, Rosendo, who says we do have bed availability for dialysis. I spoke with hospitalist, Dr. Voss, who agrees to accept the patient for admission. Dictation of this chart was performed using voice recognition software; therefore, there may be some unintended grammatical errors. - Vital Signs Vital signs: Temp Pulse Resp BP Pulse Ox 98.3 F 20 124/63 93 04/17/18 02:33 04/17/18 03:01 04/17/18 03:01 04/17/18 03:01 - Laboratory Result Diagrams: 04/17/18 02:20 04/17/18 02:20 Laboratory results interpreted by me: 04/17/18 04/17/18 02:20 02:20 RBC 3.45 L Hgb 10.6 L Hct 31.5 L RDW 15.9 H BUN 37 H Creatinine 4.76 H Est GFR ( Amer) 15 L Est GFR (Non-Af Amer) 12 L Glucose 124 H - EKG Interpretation by Me Additional EKG results interpreted by me: 04/17/18 02:34 EKG is reviewed and interpreted by me. EKG shows sinus rhythm with rate of [address] segment elevation or depression. No ischemic T wave inversions. OK interval is prolonged. QRS duration is within normal range. QT interval is borderline. Old EKG for comparison is from April 25, 2017. Discharge - Discharge Clinical Impression: ESRD (end stage renal disease) on dialysis Chest pain Qualifiers: Chest pain type: unspecified Qualified Code(s): R07.9 - Chest pain, unspecified Condition: Stable Disposition: ADMITTED OBSERVATION Admitting Provider: Hospitalist Unit Admitted: Telemetry
[2018-04-17 02:40] LABS: ABSOLUTE BASOPHILS # (AUTO) 0.1 10^3/uL (0.0-0.2); ABSOLUTE EOSINOPHILS # (AUTO) 0.3 10^3/uL (0.0-0.6); ABSOLUTE LYMPHOCYTES (AUTO) 1.4 10^3/uL (0.5-4.7); ABSOLUTE MONOCYTES (AUTO) 0.5 10^3/uL (0.1-1.4); ABSOLUTE NEUT (AUTO) 7.1 10^3/uL (1.7-8.2); BASOPHILS % (AUTO) 0.8 % (0-2); EOSINOPHILS % (AUTO) 2.8 % (0-6); HEMATOCRIT 31.5 % (37.9-51.0); HEMOGLOBIN 10.6 g/dL (13.5-17.0); MEAN CORPUSCULAR HEMOGLOBIN 30.8 pg (27.0-33.4); MEAN CORPUSCULAR HGB CONC 33.6 g/dL (32.0-36.0); MEAN CORPUSCULAR VOLUME 92 fl (80-97); PLATELET COUNT 259 10^3/uL (150-450); RED BLOOD COUNT 3.45 10^6/uL (4.35-5.55); RED CELL DISTRIBUTION WIDTH 15.9 % (11.5-14.0); SEGMENTED NEUTROPHILS % (AUTO) 76.4 % (42-78); TOTAL CELLS COUNTED % (AUTO) 100 %; WHITE BLOOD COUNT 9.3 10^3/uL (4.0-10.5)
[2018-04-17 02:48] LABS: ALANINE AMINOTRANSFERASE 32 U/L (21-72); ALBUMIN 3.5 g/dL (3.5-5.0); ALKALINE PHOSPHATASE 62 U/L (38-126); ANION GAP 10 (5-19); ASPARTATE AMINO TRANSFERASE 26 U/L (17-59); BILIRUBIN,DIRECT 0.4 mg/dL (0.0-0.4); BILIRUBIN,TOTAL 0.4 mg/dL (0.2-1.3); BLOOD UREA NITROGEN 37 mg/dL (7-20); CALCIUM 8.6 mg/dL (8.4-10.2); CARBON DIOXIDE 29 mmol/L (22-30); CHLORIDE 105 mmol/L (98-107); GLUCOSE 124 mg/dL (75-110); POTASSIUM 4.2 mmol/L (3.6-5.0); SODIUM 143.6 mmol/L (137-145); TOTAL PROTEIN 6.4 g/dL (6.3-8.2)
--- NOTE | 2018-04-17 03:48 | RADIOLOGY REPORT (SQ) ---
EXAM DESCRIPTION: XR CHEST 1 VIEW COMPLETED DATE/TME: 04/17/2018 02:33 CLINICAL HISTORY: chest pain COMPARISON: 03/08/2018 FINDINGS: Single frontal view of the chest. Prior median sternotomy. Leads overlie the chest. The cardiomediastinal silhouette has normal size and contour. No consolidation, pneumothorax, or pleural effusion. No acute osseous abnormalities. Upper abdominal soft tissues are unremarkable. IMPRESSION: 1. No acute pulmonary process identified.
[2018-04-17] MEDS ORDERED: IPRATROPIUM/ALBUTEROL 0.5-2.5 MG/3 ML AMPUL NEB PRN (05:56)
[2018-04-17] MEDS ORDERED: ACETAMINOPHEN 325 MG TABLET PO PRN (05:56)
[2018-04-17] MEDS: HEPARIN SOD (PORCINE) 5,000 UNIT/ML 1 ML SYRINGE SUBCUT SCH ×3 (07:09→22:54)
--- NOTE | 2018-04-17 07:20 | PDOC H&P ---
History of Present Illness Admission Date/PCP: 04/17/18 05:16 Patient complains of: Bilateral arm pain History of Present Illness: TYLOR JIMENEZ is a 77 year old male presents to the emergency department secondary to 2-hour history of pain. Described as sharp, radiating to his back. Denies chest pain. Associated with increased heart rate, denies shortness of breath. Denies pain at this time. Patient has incisional disease and is on dialysis Sunday for the past 2 years. States he also has a history of coronary artery disease status post WI greater than 20 years ago. Saw his cut out press operator approximately 1 week ago, no changes made at this time. Patient is alert oriented x3, resting comfortably in bed and does not appear to be distressed. Past Medical History Cardiac Medical History: Reports: Congestive Heart Failure, Coronary Artery Disease, Hyperlipidema, Hypertension, Peripheral Vascular Disease Pulmonary Medical History: Reports: Chronic Obstructive Pulmonary Disease (COPD ) - Possible Neurological Medical History: Denies: Seizures Renal/ Medical History: Reports: End Stage Renal Disease - On hemodialysis Sunday and Sunday Malignancy Medical History: Reports: Renal (Kidney) Cancer - Bladder and prostate cancer Musculoskeltal Medical History: Reports: Gout Psychiatric Medical History: Denies: Depression Infectious Medical History: Reports: 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 Past Surgical History Past Surgical History: Reports: Cardiac Catheterization, Coronary Artery Bypass Graft, Orthopedic Surgery - Right hip hemiarthroplasty August 2016, Vascular Surgery - AAA repair, Other - Nephrostomy tube placement, creation of ileal conduit, prostatectomy Social History Information Source: Patient Lives with: Family Smoking Status: Unknown if Ever Smoked Frequency of Alcohol Use: None Hx Recreational Drug Use: No Drugs: None Hx Prescription Drug Abuse: No Family History Family History: None, Malignancy Parental Family History Reviewed: No Children Family History Reviewed: No Sibling(s) Family History Reviewed.: No Medication/Allergy Allergies/Adverse Reactions: ciprofloxacin [From Cipro] Allergy (Verified 04/18/17 15:19) Review of Systems Constitutional: PRESENT: as per HPI. ABSENT: chills, fever(s), night sweats Cardiovascular: PRESENT: palpitations. ABSENT: chest pain, dyspnea on exertion , edema Respiratory: ABSENT: cough, dyspnea Gastrointestinal: ABSENT: abdominal pain Musculoskeletal: PRESENT: other - Arm pain Neurological: ABSENT: confusion, numbness, tingling, weakness Physical Exam Vital Signs: Temp Pulse Resp BP Pulse Ox 98.3 F 20 124/63 93 04/17/18 02:33 04/17/18 03:01 04/17/18 03:01 04/17/18 03:01 General appearance: PRESENT: no acute distress, well-developed, well-nourished Head exam: PRESENT: atraumatic, normocephalic Eye exam: PRESENT: conjunctiva pink, EOMI, PERRLA. ABSENT: scleral icterus Ear exam: PRESENT: normal external ear exam Mouth exam: PRESENT: moist, tongue midline Neck exam: ABSENT: carotid bruit, JVD, lymphadenopathy, thyromegaly Respiratory exam: PRESENT: clear to auscultation jenni. ABSENT: rales, rhonchi, wheezes Cardiovascular exam: PRESENT: RRR. ABSENT: diastolic murmur, rubs, systolic murmur Pulses: PRESENT: normal dorsalis pedis pul Vascular exam: PRESENT: normal capillary refill GI/Abdominal exam: PRESENT: normal bowel sounds, soft. ABSENT: distended, guarding, mass, organolmegaly, rebound, tenderness Rectal exam: PRESENT: deferred Extremities exam: PRESENT: full ROM. ABSENT: calf tenderness, clubbing, pedal edema Neurological exam: PRESENT: alert, awake, oriented to person, oriented to place , oriented to time, oriented to situation, CN II-XII grossly intact. ABSENT: motor sensory deficit Psychiatric exam: PRESENT: appropriate affect, normal mood. ABSENT: homicidal ideation, suicidal ideation Skin exam: PRESENT: dry, intact, warm. ABSENT: cyanosis, rash Results Laboratory Results: 04/17/18 04/17/18 04/17/18 02:20 02:20 02:20 WBC 9.3 Hgb 10.6 L Sodium 143.6 Potassium 4.2 BUN 37 H Creatinine 4.76 H Troponin I 0.026 Impressions: Chest X-Ray 04/17/18 02:33 IMPRESSION: 1. No acute pulmonary process identified. Assessment & Plan - Diagnosis (1) Chest pain Qualifiers: Chest pain type: unspecified Qualified Code(s): R07.9 - Chest pain, unspecified Is this a current diagnosis for this admission?: Yes (2) ESRD (end stage renal disease) on dialysis Is this a current diagnosis for this admission?: Yes (3) Asthma Qualifiers: Asthma severity: mild Asthma persistence: persistent Asthma complication type: uncomplicated Qualified Code(s): J45.30 - Mild persistent asthma, uncomplicated Is this a current diagnosis for this admission?: Yes (4) DNI (do not intubate) Is this a current diagnosis for this admission?: Yes - Time Time Spent: 30 to 50 Minutes Anticipated discharge: Home - Inpatient Certification Medical Necessity: Need Close Monitoring Due to Risk of Patient Decompensation, Need For Continuous Telemetry Monitoring - Plan Summary Plan Summary: Patient to be admitted for further monitoring and evaluation. Patient will be in need of dialysis today as per his usual schedule. We will continue to trend patient's troponin every 6 hours x3 oriented within normal limits. No acute EKG changes noted at this time. Patient denies chest pain, denies bilateral arm pain. Has coronary disease history status post WI with stent placed greater than 20 years ago. States he saw his cut out press operator 1 week ago and no changes made. We will continue to monitor telemetry closely. Continue patient' s home medications and adjust accordingly.
[2018-04-17 09:01] LABS: ANION GAP 6 (5-19); BLOOD UREA NITROGEN 39 mg/dL (7-20); CALCIUM 8.3 mg/dL (8.4-10.2); CARBON DIOXIDE 31 mmol/L (22-30); CHLORIDE 106 mmol/L (98-107); GLUCOSE 104 mg/dL (75-110); SODIUM 142.5 mmol/L (137-145)
--- NOTE | 2018-04-17 11:11 | EKG REPORT ---
SEVERITY:- ABNORMAL ECG - SINUS RHYTHM FIRST DEGREE AV BLOCK : Confirmed by: Jessica Oreilly 17-Apr-2018 11:10:42
[2018-04-17] MEDS: FAMOTIDINE 20 MG TABLET PO SCH ×2 (12:11→22:54)
[2018-04-17] MEDS ORDERED: REGADENOSON INJ 0.4 MG/5 ML DISP.SYRIN IV ONE (13:14)
--- NOTE | 2018-04-17 20:19 | PDOC CONSULTATION ---
Consultation Consult Date: 04/17/18 Attending physician:: MORA GASTON Consult reason:: I was asked to see the patient to supervise dialysis while here in the hospital. History of Present Illness Admission Date/PCP: 04/17/18 05:16 History of Present Illness: TYLOR JIMENEZ is a 77 year old male known to me with history of end-stage renal disease on maintenance hemodialysis 3 times a week on Mondays, Wednesdays , and Fridays, history of coronary artery disease, recurrent urinary tract infection with episodes of sepsis in the past, and COPD who was brought to the emergency room by the ambulance this morning because of chest pains. Records indicate that the patient started having chest pains this morning with radiation to the back and woke up his son to bring him to the emergency room. When I talked to him tonight while he is on dialysis machine he said he felt like he was having a heart attack with bilateral arm pains so he told his son to bring him to the emergency room or to call the ambulance. He said last night he could not sleep and he was just at the edge of the bed because of the pain. From records he was given aspirin and nitroglycerin in the ambulance and by the time he gets to the emergency room the pain is gone. Currently he is chest pain-free and denies any bilateral arm pain or back pains. He said he was slightly short of breath when he was having the symptoms above. He otherwise denies any associated diaphoresis, headache, no blurring of vision. He said he had some nausea and vomiting this morning. Currently I am seeing the patient during dialysis treatment and is seems to be well and chest pain-free. Is currently stable receiving dialysis. He reports that he feels fine now. Dr. Dunham puppet master has seen him and he is is scheduled for stress test tomorrow. Past Medical History Cardiac Medical History: Reports: Coronary Artery Disease, Hyperlipidemia, Hypertension-primary, Peripheral Vascular Disease Pulmonary Medical History: Reports: Chronic Obstructive Pulmonary Disease (COPD ) - Possible EENT Medical History: Reports: Other - Bilateral hearing loss Renal/ Medical History: Reports: End Stage Renal Disease - On hemodialysis Sunday and Sunday, Hyperphosphatemia, Metabolic Acidosis, Recurrent UTI Malignancy Medical History: Reports: Renal (Kidney) Cancer - Bladder and prostate cancer Musculoskeltal Medical History: Reports: Gout Infectious Medical History: Reports: 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 Past Surgical History Past Surgical History: Reports: Cardiac Catheterization, Coronary Artery Bypass Graft, Cystectomy - With urostomy bag in the right lower quadrant, Dialysis Access Surgery AVF, Orthopedic Surgery - Right hip hemiarthroplasty August 2016, Vascular Surgery - AAA repair, Other - Nephrostomy tube placement, creation of ileal conduit, prostatectomy Social History Information Source: [facility] Records Lives with: Family Smoking Status: Former Smoker Frequency of Alcohol Use: Rare Hx Recreational Drug Use: No Drugs: None Hx Prescription Drug Abuse: No - Advance Directive Resuscitation Status: Do Not Intubate Family History Family History: Malignancy - Bone cancer in his father Parental Family History Reviewed: Yes Children Family History Reviewed: Unknown Sibling(s) Family History Reviewed.: Unknown Medication/Allergy Home Medications: Aspirin [Ecotrin 81 mg EC Tablet] 81 mg PO DAILY 04/17/18 Atorvastatin Calcium [Lipitor 20 mg Tablet] 20 mg PO QHS 04/17/18 Calcitriol [Rocaltrol 0.25 Mcg Capsule] 0.25 mcg PO DAILY 04/17/18 Calcium Carbonate [Tums Chewable 500 mg Tab.chew] 500 mg PO QPM 04/17/18 Folic Acid/Vitamin B Comp W-C [Nephrocaps Multiple Vitamin Capsule] 1 cap PO QHS 04/17/18 Isosorbide Mononitrate [Ismo 20 Mg Tablet] 20 mg PO Q12 04/17/18 Magnesium Oxide [Mag-Ox 400 mg Tablet] 400 mg PO DAILY 04/17/18 Multivit-Min/Folic/Vit K/Lycop [One-A-Day Men's 50+ Tablet] 1 each PO DAILY 09/30 Omeprazole 20 mg PO DAILY 04/17/18 Sodium Bicarbonate [Sodium Bicarbonate 650 mg Tablet] 650 mg PO Q12 04/17/18 Allergies/Adverse Reactions: ciprofloxacin [From Cipro] Allergy (Verified 04/18/17 15:19) Review of Systems All systems: reviewed and no additional remarkable complaints except as stated Review of Systems: Constitutional: ABSENT: chills, fatigue, fever(s), headache(s), weight gain, weight loss Eyes: ABSENT: visual disturbances Ears: Present: Baseline bilateral hearing loss Cardiovascular: ABSENT: Dyspnea on exertion, edema, orthropnea, palpitations; admits chest pain and episodic shortness of breath Respiratory: ABSENT: cough, dyspnea, hemoptysis Gastrointestinal: ABSENT: abdominal pain, constipation, diarrhea, hematemesis, hematochezia; admits nausea, vomiting earlier today Genitourinary: ABSENT: dysuria, hematuria Musculoskeletal: ABSENT: joint swelling Integumentary: ABSENT: rash, wounds Neurological: ABSENT: abnormal gait, abnormal speech, confusion, dizziness, focal weakness, numbness, syncope Psychiatric: ABSENT: anxiety, depression Endocrine: ABSENT: cold intolerance, heat intolerance, polydipsia, polyuria Hematologic/Lymphatic: ABSENT: easy bleeding, easy bruising, lymphadenopathy Physical Exam Vital Signs: Temp Pulse Resp BP Pulse Ox 98.6 F 69 14 114/49 L 93 04/17/18 12:51 04/17/18 14:00 04/17/18 12:51 04/17/18 12:51 04/17/18 12:51 Intake & Output 04/16/18 04/17/18 04/18/18 06:59 06:59 06:59 Intake Total 558 Output Total 200 Balance 358 Weight 82.4 kg Vitals during dialysis: Blood pressure 154/76, heart rate of 68, blood flow rate of 450 mL/min, dialysate flow rate of 600 mL/min Exam: General appearance: No acute distress, cooperative, well-developed, well- nourished Head exam: PRESENT: atraumatic, normocephalic Eye exam: PRESENT: Conjunctiva slightly pale, EOMI, PERRLA. ABSENT: conjunctival injection, scleral icterus Mouth exam: PRESENT: moist, neck supple, tongue midline Neck exam: PRESENT: full ROM. ABSENT: carotid bruit, JVD, lymphadenopathy, thyromegaly Respiratory exam: PRESENT: Diminished to auscultation bilaterally. He has diffuse mild rhonchi and wheezing ABSENT: rales, stridor Cardiovascular exam: PRESENT: RRR, +S1, +S2. ABSENT: systolic murmur Pulses: PRESENT: normal radial pulses, normal dorsalis pedis pulses GI/Abdominal exam: PRESENT: normal bowel sounds, soft. He has urostomy bag in the right lower quadrant ABSENT: guarding, mass, tenderness Rectal exam: Deferred Extremities exam: PRESENT: full ROM. ABSENT: calf tenderness, pedal edema Musculoskeletal: PRESENT: full ROM. ABSENT: deformity Neurological exam: PRESENT: alert, Awake, Oriented to person, Oriented to place , Oriented to time, reflexes normal, CN II-XII grossly intact. ABSENT: motor sensory deficit Psychiatric exam: PRESENT: appropriate affect, normal mood. ABSENT: homicidal ideation, suicidal ideation Skin exam: PRESENT: intact, dry, warm. ABSENT: rash Results Laboratory Results: 04/17/18 08:03 04/17/18 04/17/18 08:03 14:36 Sodium 142.5 Potassium 4.0 Chloride 106 Carbon Dioxide 31 H Anion Gap 6 BUN 39 H Creatinine 5.06 H Est GFR ( Amer) 14 L Est GFR (Non-Af Amer) 11 L Glucose 104 Calcium 8.3 L Magnesium 1.8 04/17/18 04/17/18 08:03 14:36 Troponin I 0.052 0.047 Impressions: Chest X-Ray 04/17/18 02:33 IMPRESSION: 1. No acute pulmonary process identified. Assessment & Plan - Diagnosis (1) Chest pain Qualifiers: Chest pain type: unspecified Qualified Code(s): R07.9 - Chest pain, unspecified Is this a current diagnosis for this admission?: Yes Plan: Patient was seen by cardiology and Dr. Dunham schedule him for stress test tomorrow morning. (2) ESRD (end stage renal disease) on dialysis Is this a current diagnosis for this admission?: Yes Plan: We will do dialysis today for 3 hours, using the patient's AV fistula, with 3 potassium bath, blood flow rate of 450 mL per minute, dialysate flow rate of 600 mL per minute, ultrafiltration 2 L as tolerated, no heparin and no Procrit. Patient will be monitored throughout dialysis treatment today monitoring vital signs. (3) Anemia in chronic kidney disease (CKD) Qualifiers: Chronic kidney disease stage: on chronic dialysis Qualified Code(s): N18.6 - End stage renal disease; D63.1 - Anemia in chronic kidney disease; D63.1 - Anemia in chronic kidney disease; Z99.2 - Dependence on renal dialysis; Z99.2 - Dependence on renal dialysis; Z99.2 - Dependence on renal dialysis; Z99.2 - Dependence on renal dialysis Is this a current diagnosis for this admission?: Yes Plan: Patient does not need Procrit today. (4) COPD (chronic obstructive pulmonary disease) Qualifiers: COPD type: unspecified COPD Qualified Code(s): J44.9 - Chronic obstructive pulmonary disease, unspecified (5) Coronary artery disease Qualifiers: Coronary Disease-Associated Artery/Lesion type: tribe artery [place] vs. transplanted heart: tribe heart Associated angina: without angina Qualified Code(s): I25.10 - Atherosclerotic heart disease of tribe coronary artery without angina pectoris Is this a current diagnosis for this admission?: Yes (6) Hypertension Qualifiers: Hypertension type: essential hypertension Qualified Code(s): I10 - Essential (primary) hypertension Is this a current diagnosis for this admission?: Yes Plan: Continue current medications. - Notes Notes: Thank you for this consultation. We will supervise dialysis while patient is here in the hospital. - Time Time Spent: 50 to 70 Minutes
--- NOTE | 2018-04-17 21:16 | Progress Note ---
Provider Note Provider Note: 77 y.o. M who initially called EMS because he woke from sleep with chest pain. En route to [facility], the patient received 1 SL Nitro tablet and 3 81mg ASA tablets. By the time the patient arrived to the ED, he was chest pain free. EKG shows 1st degree heart block, RBBB, no evidence of acute infarction or ischemia. Lab work indicated renal failure, but is otherwise benign. 1. CHEST PAIN - Serial troponins negative. No longer trending. EKG in AM. Cardiology consulted. Plan for stress test tomorrow. 2. CKD - History of CKD, currently on MWF HD. Patient's Clinical Laboratory Aide is Dr. Cespedes. Plan for HD today. 3. HTN - History of HTN. Continue home dose isosorbide.
[2018-04-17] MEDS: ISOSORBIDE MONONITRATE 20 MG TABLET PO SCH (22:54)
[2018-04-17] MEDS: FOLIC ACID/VITAMIN B COMP W-C CAPSULE PO SCH (22:54)
[2018-04-17] MEDS: ATORVASTATIN CALCIUM 20 MG TABLET PO SCH (22:54)
[2018-04-18 05:07] LABS: ABSOLUTE BASOPHILS # (AUTO) 0.1 10^3/uL (0.0-0.2); ABSOLUTE EOSINOPHILS # (AUTO) 0.2 10^3/uL (0.0-0.6); ABSOLUTE LYMPHOCYTES (AUTO) 1.7 10^3/uL (0.5-4.7); ABSOLUTE MONOCYTES (AUTO) 0.5 10^3/uL (0.1-1.4); ABSOLUTE NEUT (AUTO) 5.1 10^3/uL (1.7-8.2); BASOPHILS % (AUTO) 0.9 % (0-2); HEMATOCRIT 29.7 % (37.9-51.0); HEMOGLOBIN 10.1 g/dL (13.5-17.0); LYMPHOCYTES % (AUTO) 22.5 % (13-45); MEAN CORPUSCULAR HEMOGLOBIN 30.8 pg (27.0-33.4); MEAN CORPUSCULAR VOLUME 91 fl (80-97); PLATELET COUNT 200 10^3/uL (150-450); RED BLOOD COUNT 3.28 10^6/uL (4.35-5.55); SEGMENTED NEUTROPHILS % (AUTO) 66.6 % (42-78); TOTAL CELLS COUNTED % (AUTO) 100 %; WHITE BLOOD COUNT 7.6 10^3/uL (4.0-10.5)
[2018-04-18 05:31] LABS: ANION GAP 10 (5-19); BLOOD UREA NITROGEN 25 mg/dL (7-20); CALCIUM 8.6 mg/dL (8.4-10.2); CARBON DIOXIDE 33 mmol/L (22-30); CHLORIDE 100 mmol/L (98-107); GLUCOSE 101 mg/dL (75-110); PHOSPHORUS 2.8 mg/dL (2.5-4.5); POTASSIUM 4.5 mmol/L (3.6-5.0); SODIUM 142.8 mmol/L (137-145)
[2018-04-18] MEDS: HEPARIN SOD (PORCINE) 5,000 UNIT/ML 1 ML SYRINGE SUBCUT SCH ×3 (05:31→21:44)
[2018-04-18] MEDS: LANSOPRAZOLE 15 MG TAB.RAP.DR PO SCH (05:32)
--- NOTE | 2018-04-18 08:54 | EKG REPORT ---
SEVERITY:- ABNORMAL ECG - SINUS RHYTHM FIRST DEGREE AV BLOCK : Confirmed by: Jessica Oreilly 18-Apr-2018 08:53:26
[2018-04-18] MEDS: ASPIRIN 81 MG TABLET, ENT COATED PO SCH (09:29)
[2018-04-18] MEDS: CALCITRIOL 0.25 MCG CAPSULE PO SCH (09:29)
[2018-04-18] MEDS: ISOSORBIDE MONONITRATE 20 MG TABLET PO SCH ×2 (09:29→21:44)
[2018-04-18] MEDS: MULTIVITAMIN TABLET PO SCH (09:29)
[2018-04-18] MEDS: FAMOTIDINE 20 MG TABLET PO SCH ×2 (09:29→21:43)
[2018-04-18] MEDS ORDERED: (PENDING PHARMACY ID) (Multivit-Min/Folic/Vit K/Lycop [One-A-Day Men's 50 Plus Tablet] 1 E PO SCH (10:00)
[2018-04-18] MEDS ORDERED: IPRATROPIUM/ALBUTEROL 0.5-2.5 MG/3 ML AMPUL NEB PRN (12:02)
[2018-04-18] MEDS: FLUTICASONE/SALMETEROL DISKUS 250-50 MCG/DOSE IH SCH ×2 (13:26→21:44)
[2018-04-18] MEDS: TIOTROPIUM BROMIDE DPI 5 CAP/KIT (18 MCG/CAP) IH SCH (13:27)
--- NOTE | 2018-04-18 20:02 | Progress Note ---
Provider Note Provider Note: CARDIOLOGY PROGRESS NOTES by Dr. Marcy Dunham. On 04/18/2018. SUBJECTIVE: The patient stress had to be rescheduled, since the patient is wheezing this morning. On questioning the patient says that he always has wheezing. He denies at present cough or shortness of breath. His O2 saturations on room air was 86%. After 2 L of nasal cannula it went up to 94%. The patient in spite of this denies any shortness of breath. There is no recurrence of chest pain. There is no leg edema. There is no PND orthopnea. There is no palpitations. There is no dizziness syncope or near syncope. The patient did have dialysis yesterday. There is no TIA CVA symptoms. PHYSICAL EXAMINATION: The patient is well-built and well-nourished. He is well- groomed. At present in no acute distress. 04/18/18 04/18/18 12:00 12:01 Temperature 98.9 F Temperature Oral Source Pulse Rate 66 Respiratory 14 Rate Blood Pressure 108/51 L [Right Upper Arm] Blood Pressure 70 Mean [Right Upper Arm] Blood Pressure Supine Position [Right Upper Arm] O2 Sat by Pulse 86 L 94 Oximetry Oxygen Delivery Room Air Nasal Cannula Method ( includes room air) Oxygen Flow 2 Rate Head: Is atraumatic normocephalic. EYES: Pupils are equal round regular reactive to light accommodation. Extraocular movements are normal. There is no clinical pallor there is no scleral icterus. EARS: Tympanic membranes are intact. External auditory canals are clear. There are no lesions of the pinna. NOSE: There is no deviated nasal septum. There is no inflammation or nasal mucous membrane. MOUTH: Mucous membranes of mouth are moist tongue is moist. There is no ulcers. There is no bleeding from the gums. THROAT: There is no redness of the oropharynx. There is no exudates in the throat. SKIN: There is no petechia or ecchymosis. There is no skin lesions lesions or skin rashes. NECK: Supple. There is no JVD. Carotids are equal there is no bruit. There is no lymphadenopathy there is no goiter. Trachea central. LUNGS: Clear to auscultation percussion without any rhonchi rales or wheezing. There is diminished air entry and prolonged expiration. On percussion there is hyperresonance throughout. There is no chest wall tenderness. HEART: S1-S2 is heard. There is no S3 gallop there is no S4 gallop. Systolic murmur left sternal border and apex there is no rub. There is no murmur of aortic stenosis. There is no significant mitral regurgitation murmur. There is no aortic regurgitation murmur. Abdomen: Soft. Nontender. There Is No Hepatosplenomegaly. Bowel Sounds Are Well Rush. There Is No Tender Areas of Masses. There Is No Rebound Guarding or Rigidity. There Is a Ostomy Bag over the Ileal Conduit on the Right Lower Abdomen. EXTREMITIES: Femorals Are Diminished. There Is No Femoral Bruits. Leg Pulses Are Diminished. There Is No Pedal Edema. There Is No DVT or Cellulitis. There Is No Sinus or Clubbing. Capillary Refill Is Normal. There Is No Calf Tenderness. INDUCTION HEATING EQUIPMENT SETTER: The Patient Is Conscious Awake Alert Oriented x3 with No Focal Deficits. PSYCHIATRIC: The Patient Judgment and Insight Are Intact His Affect Is Normal. 04/17/18 04/18/18 04/18/18 22:26 04:27 04:27 WBC 7.6 Hgb 10.1 L Hct 29.7 L Plt Count 200 Sodium 142.8 Potassium 4.5 Chloride 100 Carbon Dioxide 33 H Anion Gap 10 BUN 25 H Creatinine 3.53 H Est GFR (Non-Af Amer) 17 L Glucose 101 Calcium 8.6 Phosphorus 2.8 Magnesium 1.9 Troponin I 0.049 Impression/RECOMMENDATION: 1. Chest Pain , relieved with one sublingual nitroglycerin promptly, in a patient with history of coronary artery disease, old myocardial infarction,, and coronary bypass graft surgery. Hence this has to be treated as new onset anginal symptoms remotely after myocardial infarction. Since MS is ruled out we will recommend that the patient have IV Lexiscan Cardiolite stress test in the a.m. In the meantime would just continue the aspirin and statins. Note no further recurrence of chest pain. Note the patient's stress test could not be conducted due to the patient's wheezing. Later after the stress test will start the patient on a beta-channing and other anti-CAD medication. 2. CORONARY ARTERY DISEASE: History of old myocardial infarction. History of coronary bypass graft surgery. Details of his coronary bypass graft surgery is not available. 3. HYPERTENSION: Blood pressure well controlled on current medication. 4. 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 Continue the same. Nephrology has been consulted. 5. C OPD: Patient noted to be wheezing.? Acute exacerbation of COPD. Recommend intensifying respiratory treatments. 6. HYPERLIPIDEMIA: Continue patient's statin. We will check the patient's lipid panel and liver function test tomorrow morning. 7. History of renal cancer, and history of prostate cancer.\ 8.Peripheral vascular disease: History of abdominal aortic aneurysm. Later we will get an ultrasound of the abdomen to assess the integrity of the repair. Note patient's medications have been reviewed. 40 minutes spent on this patient more than 50% of time spent in direct patient care. We will reorder the patient's lipid panel and LFTs, since it was not done today. Medical decision making is of high complexity. 40 minutes spent on this patient more than 50% of time spent in direct patient care.
[2018-04-18] MEDS: FOLIC ACID/VITAMIN B COMP W-C CAPSULE PO SCH (21:43)
[2018-04-18] MEDS: ATORVASTATIN CALCIUM 20 MG TABLET PO SCH (21:44)
--- NOTE | 2018-04-18 22:55 | PDOC PROGRESS REPORT ---
Subjective Progress Note for:: 04/18/18 Subjective:: 77 y.o. M who initially called EMS because he woke from sleep with chest pain. En route to [facility], the patient received 1 SL Nitro tablet and 3 81mg ASA tablets. By the time the patient arrived to the ED, he was chest pain free. EKG shows 1st degree heart block, RBBB, no evidence of acute infarction or ischemia. Lab work indicated renal failure, but is otherwise benign. The patient was seen this morning on rounds. He has very mild audible wheezing, which the patient states "I always have this." Stress test was cancelled this morning and rescheduled for tomorrow due to wheezing. The patient denies reoccurrence of his chest pain since admission to [facility]. Upon assessment, lungs are clear to auscultation. Wheezing originating from upper respiratory tract. No peripheral or central cyanosis. S1S2. Palpable pulses in all extremities and no edema. Plan for stress test tomorrow. Initiate Spiriva and Advair inhalers as well as PRN nebulizer treatments. Reason For Visit: CHEST PAIN,ESRD Physical Exam Vital Signs: Temp Pulse Resp BP Pulse Ox 98.6 F 76 14 129/61 H 92 04/18/18 08:00 04/18/18 08:00 04/18/18 08:00 04/18/18 08:00 04/18/18 08:00 Intake & Output 04/17/18 04/18/18 04/19/18 06:59 06:59 06:59 Intake Total 558 Output Total 2550 -1991 Weight 79 kg General appearance: PRESENT: no acute distress, well-developed, well-nourished Head exam: PRESENT: atraumatic Eye exam: PRESENT: conjunctiva pink, PERRLA Mouth exam: PRESENT: moist, tongue midline Neck exam: PRESENT: full ROM Respiratory exam: PRESENT: clear to auscultation jenni, symmetrical, unlabored, wheezes - upper respiratory Cardiovascular exam: PRESENT: +S1, +S2. ABSENT: systolic murmur Pulses: PRESENT: normal radial pulses, normal dorsalis pedis pul Vascular exam: PRESENT: normal capillary refill GI/Abdominal exam: PRESENT: normal bowel sounds, soft. ABSENT: tenderness Rectal exam: PRESENT: deferred Extremities exam: PRESENT: full ROM. ABSENT: pedal edema Musculoskeletal exam: PRESENT: ambulatory, full ROM Neurological exam: PRESENT: alert, awake, oriented to person, oriented to place , oriented to time, oriented to situation, other - VERY HARD OF HEARING Psychiatric exam: PRESENT: appropriate affect Skin exam: PRESENT: dry, intact, normal color Results Laboratory Results: 04/18/18 04:27 04/18/18 04:27 04/17/18 04/18/18 04/18/18 14:36 04:27 04:27 WBC 7.6 RBC 3.28 L Hgb 10.1 L Hct 29.7 L MCV 91 MCH 30.8 MCHC 34.0 RDW 15.0 H Plt Count 200 Seg Neutrophils % 66.6 Lymphocytes % 22.5 Monocytes % 7.0 Eosinophils % 3.0 Basophils % 0.9 Absolute Neutrophils 5.1 Absolute Lymphocytes 1.7 Absolute Monocytes 0.5 Absolute Eosinophils 0.2 Absolute Basophils 0.1 Sodium 142.8 Potassium 4.5 Chloride 100 Carbon Dioxide 33 H Anion Gap 10 BUN 25 H Creatinine 3.53 H Est GFR ( Amer) 21 L Est GFR (Non-Af Amer) 17 L Glucose 101 Calcium 8.6 Phosphorus 2.8 Magnesium 1.8 1.9 04/17/18 04/17/18 04/17/18 08:03 14:36 22:26 Troponin I 0.052 0.047 0.049 Impressions: Chest X-Ray 04/17/18 02:33 IMPRESSION: 1. No acute pulmonary process identified. Status: Imported from PACS Assessment & Plan - Diagnosis (1) Chest pain Qualifiers: Chest pain type: unspecified Qualified Code(s): R07.9 - Chest pain, unspecified Is this a current diagnosis for this admission?: Yes Plan: Serial troponins negative. No longer trending. EKG shows first degree heart block, no evidence of ischemia or infarct Cardiology consulted, appreciate their recommendations Plan for stress test tomorrow (2) ESRD (end stage renal disease) on dialysis Is this a current diagnosis for this admission?: Yes Plan: History of ESRD on MWF HD Patient's Specialties Operator is Dr. Cespedes. Plan for HD tomorrow (3) Hypertension Qualifiers: Hypertension type: essential hypertension Qualified Code(s): I10 - Essential (primary) hypertension Is this a current diagnosis for this admission?: Yes Plan: History of HTN. Continue home dose isosorbide. (4) COPD (chronic obstructive pulmonary disease) Qualifiers: COPD type: unspecified COPD Qualified Code(s): J44.9 - Chronic obstructive pulmonary disease, unspecified Is this a current diagnosis for this admission?: Yes Plan: History of COPD, now without exacerbation Patient does not wear home O2 but may require supplemental to maintain SPO2> 88% PRN nebulizer treatments Inititate Spiriva and Advair inhalers Plan to initiate Solumedrol tonight, will re-evaluate wheezing tomorrow - Time Time Spent with patient: 15-24 minutes Medications reviewed and adjusted accordingly: Yes Anticipated discharge: Home Within: within 48 hours - Inpatient Certification Based on my medical assessment, after consideration of the patient's comorbidities, presenting symptoms, or acuity I expect that the services needed warrant INPATIENT care.: Yes I certify that my determination is in accordance with my understanding of Medicare's requirements for reasonable and necessary INPATIENT services [42 CFR 412.3e].: Yes Medical Necessity: Need For Continuous Telemetry Monitoring, Risk of Complication if Not Cared For in Hospital - Plan Summary Plan Summary: SPIRIVA AND ADVAIR. STRESS TEST TOMORROW.
[2018-04-18] MEDS ORDERED: METHYLPREDNISOLONE INJ 125 MG/2 ML SDV IV ONE (23:59)
[2018-04-19] MEDS ORDERED: METHYLPREDNISOLONE INJ 125 MG/2 ML SDV IV ONE (00:30)
[2018-04-19] MEDS ORDERED: NORMAL SALINE 1000 ML 1,000 ML IV PRN (05:00)
[2018-04-19] MEDS: METHYLPREDNISOLONE INJ 40 MG/1 ML SDV IV SCH ×3 (05:33→21:10)
[2018-04-19] MEDS: HEPARIN SOD (PORCINE) 5,000 UNIT/ML 1 ML SYRINGE SUBCUT SCH ×3 (05:34→21:11)
[2018-04-19] MEDS: LANSOPRAZOLE 15 MG TAB.RAP.DR PO SCH (05:34)
[2018-04-19 05:41] LABS: ABSOLUTE LYMPHOCYTES (AUTO) 0.7 10^3/uL (0.5-4.7); ABSOLUTE MONOCYTES (AUTO) 0.1 10^3/uL (0.1-1.4); ABSOLUTE NEUT (AUTO) 6.8 10^3/uL (1.7-8.2); BASOPHILS % (AUTO) 0.3 % (0-2); EOSINOPHILS % (AUTO) 0.4 % (0-6); HEMATOCRIT 30.8 % (37.9-51.0); HEMOGLOBIN 10.6 g/dL (13.5-17.0); LYMPHOCYTES % (AUTO) 9.2 % (13-45); MEAN CORPUSCULAR HEMOGLOBIN 31.1 pg (27.0-33.4); MEAN CORPUSCULAR HGB CONC 34.4 g/dL (32.0-36.0); MEAN CORPUSCULAR VOLUME 90 fl (80-97); MONOCYTES % (AUTO) 1.3 % (3-13); PLATELET COUNT 221 10^3/uL (150-450); RED BLOOD COUNT 3.41 10^6/uL (4.35-5.55); RED CELL DISTRIBUTION WIDTH 15.6 % (11.5-14.0); SEGMENTED NEUTROPHILS % (AUTO) 88.8 % (42-78); TOTAL CELLS COUNTED % (AUTO) 100 %; WHITE BLOOD COUNT 7.6 10^3/uL (4.0-10.5)
[2018-04-19 05:59] LABS: ALANINE AMINOTRANSFERASE 37 U/L (21-72); ALBUMIN 3.6 g/dL (3.5-5.0); ALKALINE PHOSPHATASE 66 U/L (38-126); ANION GAP 12 (5-19); ASPARTATE AMINO TRANSFERASE 24 U/L (17-59); BILIRUBIN,DIRECT 0.3 mg/dL (0.0-0.4); BILIRUBIN,TOTAL 0.5 mg/dL (0.2-1.3); BLOOD UREA NITROGEN 51 mg/dL (7-20); CALCIUM 8.8 mg/dL (8.4-10.2); CARBON DIOXIDE 29 mmol/L (22-30); CHLORIDE 100 mmol/L (98-107); CHOLESTEROL 134.54 mg/dL (0-200); GLUCOSE 153 mg/dL (75-110); POTASSIUM 5.4 mmol/L (3.6-5.0); SODIUM 140.7 mmol/L (137-145); TOTAL PROTEIN 6.9 g/dL (6.3-8.2); TRIGLYCERIDES 85 mg/dL (<150)
[2018-04-19 06:10] LABS: DIRECT LDL 66 mg/dL (<100)
[2018-04-19] MEDS ORDERED: REGADENOSON INJ 0.4 MG/5 ML DISP.SYRIN IV ONE (09:25)
[2018-04-19] MEDS: FAMOTIDINE 20 MG TABLET PO SCH ×2 (09:55→21:11)
[2018-04-19] MEDS: ASPIRIN 81 MG TABLET, ENT COATED PO SCH (09:55)
[2018-04-19] MEDS: CALCITRIOL 0.25 MCG CAPSULE PO SCH (09:55)
[2018-04-19] MEDS: FLUTICASONE/SALMETEROL DISKUS 250-50 MCG/DOSE IH SCH ×2 (09:56→21:12)
[2018-04-19] MEDS: MULTIVITAMIN TABLET PO SCH (09:56)
[2018-04-19] MEDS: TIOTROPIUM BROMIDE DPI 5 CAP/KIT (18 MCG/CAP) IH SCH (09:56)
[2018-04-19] MEDS: ISOSORBIDE MONONITRATE 20 MG TABLET PO SCH ×2 (10:00→21:11)
--- NOTE | 2018-04-19 16:34 | PDOC PROGRESS REPORT ---
Subjective Progress Note for:: 04/19/18 Subjective:: 77 y.o. M who initially called EMS because he woke from sleep with chest pain. En route to [facility], the patient received 1 SL Nitro tablet and 3 81mg ASA tablets. By the time the patient arrived to the ED, he was chest pain free. EKG shows 1st degree heart block, RBBB, no evidence of acute infarction or ischemia. Lab work indicated renal failure, but is otherwise benign. The patient was seen this afternoon on rounds while he was receiving dialysis. He was resting comfortably in a recliner on room air. The patient denies reoccurrence of his chest pain since admission to [facility]. Upon assessment, lungs are clear to auscultation. No peripheral or central cyanosis. S1S2. Palpable pulses in all extremities and no edema. According to molder helper, Dr. Dunham, the patient's stress test was ' abnormal' and he would like for the patient to undergo a cardiac catheterization. This was initially discussed with the patient earlier today and apparently he refused. When I discussed this treatment plan with the patient later in the afternoon, he had no recollection of the conversation with Dr. Paredes. While the patient does not have dementia/Alzheimer's, he is incredibly hard of hearing. It is possible that he did not hear the entire conversation. Dr. Paredes was notified, plans to readdress the topic of cardiac catheterization again tomorrow. In the meantime, plan for abdominal ultrasound to evaluate old AAA repair and initiate amlodipine 10 mg p.o. nightly. Reason For Visit: CHEST PAIN, ESRD Physical Exam Vital Signs: Temp Pulse Resp BP Pulse Ox 98.1 F 72 16 124/52 L 93 04/19/18 08:00 04/19/18 09:10 04/19/18 09:10 04/19/18 08:00 04/19/18 09:10 Intake & Output 04/18/18 04/19/18 04/20/18 06:59 06:59 06:59 Intake Total 558 222 Output Total 2550 200 22 Weight 79 kg 79.2 kg General appearance: PRESENT: no acute distress, well-developed, well-nourished Head exam: PRESENT: atraumatic, normocephalic Eye exam: PRESENT: conjunctiva pink, EOMI, PERRLA. ABSENT: scleral icterus Ear exam: PRESENT: normal external ear exam Mouth exam: PRESENT: moist, tongue midline Neck exam: ABSENT: carotid bruit, JVD, lymphadenopathy, thyromegaly Respiratory exam: PRESENT: clear to auscultation jenni. ABSENT: rales, rhonchi, wheezes Cardiovascular exam: PRESENT: RRR. ABSENT: diastolic murmur, rubs, systolic murmur Pulses: PRESENT: normal dorsalis pedis pul Vascular exam: PRESENT: normal capillary refill GI/Abdominal exam: PRESENT: normal bowel sounds, soft. ABSENT: distended, guarding, mass, organolmegaly, rebound, tenderness Rectal exam: PRESENT: deferred Extremities exam: PRESENT: full ROM. ABSENT: calf tenderness, clubbing, pedal edema Musculoskeletal exam: PRESENT: ambulatory, full ROM Neurological exam: PRESENT: alert, awake, oriented to person, oriented to place , oriented to time, oriented to situation Psychiatric exam: PRESENT: appropriate affect, normal mood Skin exam: PRESENT: dry, intact, warm Results Laboratory Results: 04/19/18 05:04 04/19/18 05:04 04/19/18 04/19/18 05:04 05:04 WBC 7.6 RBC 3.41 L Hgb 10.6 L Hct 30.8 L MCV 90 MCH 31.1 MCHC 34.4 RDW 15.6 H Plt Count 221 Seg Neutrophils % 88.8 H Lymphocytes % 9.2 L Monocytes % 1.3 L Eosinophils % 0.4 Basophils % 0.3 Absolute Neutrophils 6.8 Absolute Lymphocytes 0.7 Absolute Monocytes 0.1 Absolute Eosinophils 0.0 Absolute Basophils 0.0 Sodium 140.7 Potassium 5.4 H Chloride 100 Carbon Dioxide 29 Anion Gap 12 BUN 51 H Creatinine 4.73 H Est GFR ( Amer) 15 L Est GFR (Non-Af Amer) 12 L Glucose 153 H Calcium 8.8 Total Bilirubin 0.5 AST 24 ALT 37 Alkaline Phosphatase 66 Total Protein 6.9 Albumin 3.6 Triglycerides 85 Cholesterol 134.54 LDL Cholesterol Direct 66 VLDL Cholesterol 17.0 HDL Cholesterol 41 04/17/18 04/17/18 04/17/18 08:03 14:36 22:26 Troponin I 0.052 0.047 0.049 NT-Pro-B Natriuret Pep 04/19/18 05:04 Troponin I NT-Pro-B Natriuret Pep 5630 H Impressions: Chest X-Ray 04/17/18 02:33 IMPRESSION: 1. No acute pulmonary process identified. Status: Imported from PACS Assessment & Plan - Diagnosis (1) Chest pain Qualifiers: Chest pain type: unspecified Qualified Code(s): R07.9 - Chest pain, unspecified Is this a current diagnosis for this admission?: Yes Plan: Serial troponins negative. No longer trending. EKG shows first degree heart block, no evidence of ischemia or infarct Cardiology consulted Stress test 'abnormal' per Dr. Paredes, official results are pending. Cardiology recommending the patient undergo cardiac catheterization, Dr. Paredes plans to discuss with patient tomorrow Initiate amlodipine PO QHS Plan for abdominal US to evaluate old AAA repair (2) ESRD (end stage renal disease) on dialysis Is this a current diagnosis for this admission?: Yes Plan: History of ESRD on MWF HD Patient's Cooking Chef is Dr. Cespedes. HD today (3) Hypertension Qualifiers: Hypertension type: essential hypertension Qualified Code(s): I10 - Essential (primary) hypertension Is this a current diagnosis for this admission?: Yes Plan: History of HTN. Continue home dose isosorbide. Initiate Amlodipine (4) COPD (chronic obstructive pulmonary disease) Qualifiers: COPD type: unspecified COPD Qualified Code(s): J44.9 - Chronic obstructive pulmonary disease, unspecified Is this a current diagnosis for this admission?: Yes Plan: History of COPD, now without exacerbation Patient does not wear home O2 but may require supplemental to maintain SPO2> 88% PRN nebulizer treatments Inititate Spiriva and Advair inhalers Continue scheduled solumedrol - Time Time Spent with patient: 15-24 minutes Medications reviewed and adjusted accordingly: Yes - Inpatient Certification Based on my medical assessment, after consideration of the patient's comorbidities, presenting symptoms, or acuity I expect that the services needed warrant INPATIENT care.: Yes I certify that my determination is in accordance with my understanding of Medicare's requirements for reasonable and necessary INPATIENT services [42 CFR 412.3e].: Yes Medical Necessity: Need For Continuous Telemetry Monitoring, Risk of Complication if Not Cared For in Hospital - Plan Summary Plan Summary: ABDOMINAL US TO EVALUATE OLD AAA REPAIR. INITIATE AMLODIPINE. CARDIOLOGY TO DISCUSS CARDIAC CATHETERIZATION WITH PATIENT.
--- NOTE | 2018-04-19 19:22 | RADIOLOGY REPORT (SQ) ---
EXAM DESCRIPTION: U/S RETROPERITON (RENAL/AORTA) COMPLETED DATE/TIME: 04/19/2018 6:40 pm REASON FOR STUDY: Evaluate AAA repair COMPARISON: Renal ultrasound 10/25/2016, 08/31/2014 TECHNIQUE: Static and dynamic grayscale images acquired of the aorta and stored on PACs. Selected co pauline Doppler and spectral images recorded. LIMITATIONS: Body habitus, bowel gas FINDINGS: AORTIC CALIBER MAXIMAL PROXIMAL: 6 cm. MID: 5.4 cm. DISTAL: 3.7 cm. ILIAC DIAMETER Iliac vessels not well seen. This is a very limited study IMPRESSION: Abdominal aortic aneurysm measuring 6 cm in diameter by ultrasound. TECHNICAL DOCUMENTATION: JOB ID: [id number] [employer]- All Rights Reserved Reading location - IP/workstation name: [email or web address]
[2018-04-19] MEDS: ATORVASTATIN CALCIUM 20 MG TABLET PO SCH (21:11)
[2018-04-19] MEDS: FOLIC ACID/VITAMIN B COMP W-C CAPSULE PO SCH (21:11)
[2018-04-19] MEDS ORDERED: AMLODIPINE BESYLATE 10 MG TABLET PO SCH (22:00)
--- NOTE | 2018-04-19 22:30 | Progress Note ---
Provider Note Provider Note: CARDIOLOGY PROGRESS NOTES by Dr. Marcy Dunham on 05/04/2018. Subjective: The patient has no further chest pain. The patient underwent uneventful IV Lexiscan Cardiolite stress test. Resting images were done yesterday. The patient denies any PND orthopnea. There is no palpitations. There is no leg edema. There is no wheezing today. There is no shortness of breath. There is no TIA CVA symptoms. PHYSICAL EXAMINATION: The patient is well-built and well-nourished. In no acute distress. He is well-groomed. Selected Entries 04/19/18 04/19/18 08:00 20:00 Temperature 98.1 F 98.8 F Temperature Oral Oral Source Pulse Rate 75 91 Respiratory 16 Rate Blood Pressure 124/52 L [Right Upper Arm] Blood Pressure 76 Mean [Right Upper Arm] Blood Pressure Supine Position [Right Upper Arm] O2 Sat by Pulse 91 L Oximetry Oxygen Delivery Nasal Cannula Method ( includes room air) Oxygen Flow 2 Rate Head: Is atraumatic normocephalic. EYES: Pupils are equal round regular reactive to light accommodation. Extraocular movements are normal. There is no clinical pallor there is no scleral icterus. EARS: Tympanic membranes are intact. External auditory canals are clear. There are no lesions of the pinna. NOSE: There is no deviated nasal septum. There is no inflammation or nasal mucous membrane. MOUTH: Mucous membranes of mouth are moist tongue is moist. There is no ulcers. There is no bleeding from the gums. THROAT: There is no redness of the oropharynx. There is no exudates in the throat. SKIN: There is no petechia or ecchymosis. There is no skin lesions lesions or skin rashes. NECK: Supple. There is no JVD. Carotids are equal there is no bruit. There is no lymphadenopathy there is no goiter. Trachea central. LUNGS: Clear to auscultation percussion without any rhonchi rales or wheezing. There is diminished air entry and prolonged expiration. On percussion there is hyperresonance throughout. There is no chest wall tenderness. HEART: S1-S2 is heard. There is no S3 gallop there is no S4 gallop. Systolic murmur left sternal border and apex there is no rub. There is no murmur of aortic stenosis. There is no significant mitral regurgitation murmur. There is no aortic regurgitation murmur. Abdomen: Soft. Nontender. There Is No Hepatosplenomegaly. Bowel Sounds Are Well [place]. There Is No Tender Areas of Masses. There Is No Rebound Guarding or Rigidity. There Is a Ostomy Bag over the Ileal Conduit on the Right Lower Abdomen. EXTREMITIES: Femorals Are Diminished. There Is No Femoral Bruits. Leg Pulses Are Diminished. There Is No Pedal Edema. There Is No DVT or Cellulitis. There Is No Sinus or Clubbing. Capillary Refill Is Normal. There Is No Calf Tenderness. 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 PSYCHIATRIC: The Patient Judgment and Insight Are Intact His Affect Is Normal. 04/19/18 04/19/18 04/19/18 05:04 05:04 05:04 WBC 7.6 Hgb 10.6 L Hct 30.8 L Plt Count 221 Sodium 140.7 Potassium 5.4 H Chloride 100 Carbon Dioxide 29 BUN 51 H Creatinine 4.73 H Est GFR (Non-Af Amer) 12 L Glucose 153 H Calcium 8.8 Total Bilirubin 0.5 Direct Bilirubin 0.3 Neonat Total Bilirubin Not Reportable Neonat Direct Bilirubin Not Reportable Neonat Indirect Bili Not Reportable AST 24 ALT 37 Alkaline Phosphatase 66 NT-Pro-B Natriuret Pep 5630 H Total Protein 6.9 Albumin 3.6 Triglycerides 85 Cholesterol 134.54 LDL Cholesterol Direct 66 VLDL Cholesterol 17.0 HDL Cholesterol 41 THE patient's Cardiolite stress test shows reversible ischemia in the anteroapical, apical LV wilde in the setting of scar. There is also reversible ischemia the basal and mid inferior wilde in the setting of scar. IMPRESSION/RECOMMENDATION: 1. Chest Pain , relieved with one sublingual nitroglycerin promptly, in a patient with history of coronary artery disease, old myocardial infarction,, and coronary bypass graft surgery. Hence this has to be treated as new onset anginal symptoms remotely after myocardial infarction. Since PA is ruled out we will recommend that the patient have IV Lexiscan Cardiolite stress test in the a.m. In the meantime would just continue the aspirin and statins. Note no further recurrence of chest pain. 2. ABDOMINAL LEXISCAN CARDIOLITE NUCLEAR STRESS TESTING: Discussed this with the patient. Discussed the option of cardiac catheterization versus maximizing medical treatment. The patient to me stated that he would prefer medical treatment. We will start the patient on amlodipine since the patient does have of her underlying first-degree AV block. We will also add nitrates in the form of Imdur 30 mg daily. Continue statin and aspirin. We will follow the patient closely, and if recurrence of chest pain then would recommend cardiac catheterization. 3. CORONARY ARTERY DISEASE: History of old myocardial infarction. History of coronary bypass graft surgery. Details of his coronary bypass graft surgery is not available. 4. HYPERTENSION: Blood pressure well controlled on current medication. 5. 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 Continue the same. Nephrology has been consulted. 6. C OPD: Patient noted to be wheezing.? Acute exacerbation of COPD. Recommend intensifying respiratory treatments. 7. HYPERLIPIDEMIA: Continue patient's statin. We will check the patient's lipid panel and liver function test tomorrow morning. 8. History of renal cancer, and history of prostate cancer.\ 9.Peripheral vascular disease: History of abdominal aortic aneurysm. Later we will get an ultrasound of the abdomen to assess the integrity of the repair.. His Medications Have Been Reviewed. New Medications Added by the Hospitalist after My Discussion with the Hospitalist. Medical Decision Making Is of High Complexity. 40 Minutes Spent on This Patient More Than 50% of Time Spent in Direct Patient Care. Much Later the Patient's Daughter Called Me on the on My Cell Phone. I Have Discussed the Option of Stress Testing with a and That That the Patient Did Not Want a Cardiac Catheterization. As per the Hospitalist the Patient Told Her That He Would Be Willing to Have a Cardiac Catheterization. Hence Will Clarify This with the Patient and See If He Really Wants Cardiac Catheterization. His Cardiac Catheterization in View of the Peripheral Vascular Disease Will Be at a Higher Risk Than Usual. Will Reassess after Discussions with the Patient, and Speak to the Patient's Daughter.. Thank You End of Dictation
[2018-04-20] MEDS: LANSOPRAZOLE 15 MG TAB.RAP.DR PO SCH (05:41)
[2018-04-20] MEDS: HEPARIN SOD (PORCINE) 5,000 UNIT/ML 1 ML SYRINGE SUBCUT SCH ×2 (05:42→15:19)
[2018-04-20] MEDS: METHYLPREDNISOLONE INJ 40 MG/1 ML SDV IV SCH ×2 (05:42→15:30)
[2018-04-20] MEDS ORDERED: ISOSORBIDE MONONITRATE 30 MG TAB.ER.24H PO SCH (10:00)
[2018-04-20] MEDS: FLUTICASONE/SALMETEROL DISKUS 250-50 MCG/DOSE IH SCH (10:11)
[2018-04-20] MEDS: ASPIRIN 81 MG TABLET, ENT COATED PO SCH (10:12)
[2018-04-20] MEDS: FAMOTIDINE 20 MG TABLET PO SCH (10:12)
[2018-04-20] MEDS: CALCITRIOL 0.25 MCG CAPSULE PO SCH (10:12)
[2018-04-20] MEDS: MULTIVITAMIN TABLET PO SCH (10:12)
[2018-04-20] MEDS: TIOTROPIUM BROMIDE DPI 5 CAP/KIT (18 MCG/CAP) IH SCH (10:13)
[2018-04-20 14:06] VITALS: BP 102/49
--- NOTE | 2018-04-20 22:24 | Progress Note ---
Provider Note Provider Note: CARDIOLOGY PROGRESS NOTES by Dr. Marcy Dunham on 04/20/2018. OBJECTIVE.: The patient denies any chest pain or discomfort. There is no shortness of breath. There is no PND orthopnea. The patient denies any wheezing or cough. There is no leg edema. There is no palpitations near syncope or syncope. There is no arrhythmias seen on the monitor. PHYSICAL EXAMINATION: The patient is well-built and well-nourished. He is well- groomed, in no acute distress. 04/20/18 12:00 Temperature 98.6 F Temperature Oral Source Pulse Rate 91 Respiratory 18 Rate Blood Pressure 102/49 L [Right Upper Arm] Blood Pressure 66 Mean [Right Upper Arm] Blood Pressure Supine Position [Right Upper Arm] O2 Sat by Pulse 92 Oximetry Oxygen Delivery Nasal Cannula Method ( includes room air) Oxygen Flow 1 Rate Head: Is atraumatic normocephalic. EYES: Pupils are equal round regular reactive to light accommodation. Extraocular movements are normal. There is no clinical pallor there is no scleral icterus. EARS: Tympanic membranes are intact. External auditory canals are clear. There are no lesions of the pinna. NOSE: There is no deviated nasal septum. There is no inflammation or nasal mucous membrane. MOUTH: Mucous membranes of mouth are moist tongue is moist. There is no ulcers. There is no bleeding from the gums. THROAT: There is no redness of the oropharynx. There is no exudates in the throat. SKIN: There is no petechia or ecchymosis. There is no skin lesions lesions or skin rashes. NECK: Supple. There is no JVD. Carotids are equal there is no bruit. There is no lymphadenopathy there is no goiter. Trachea central. LUNGS: Clear to auscultation percussion without any rhonchi rales or wheezing. There is diminished air entry and prolonged expiration. On percussion there is hyperresonance throughout. There is no chest wall tenderness. HEART: S1-S2 is heard. There is no S3 gallop there is no S4 gallop. Systolic murmur left sternal border and apex there is no rub. There is no murmur of aortic stenosis. There is no significant mitral regurgitation murmur. There is no aortic regurgitation murmur. Abdomen: Soft. Nontender. There Is No Hepatosplenomegaly. Bowel Sounds Are Well [place]. There Is No Tender Areas of Masses. There Is No Rebound Guarding or Rigidity. There Is a Ostomy Bag over the Ileal Conduit on the Right Lower Abdomen. EXTREMITIES: Femorals Are Diminished. There Is No Femoral Bruits. Leg Pulses Are Diminished. There Is No Pedal Edema. There Is No DVT or Cellulitis. There Is No Sinus or Clubbing. Capillary Refill Is Normal. There Is No Calf Tenderness. 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 PSYCHIATRIC: The Patient Judgment and Insight Are Intact His Affect Is Normal IMPRESSION/RECOMMENDATION: 1. Chest Pain , relieved with one sublingual nitroglycerin promptly, in a patient with history of coronary artery disease, old myocardial infarction,, and coronary bypass graft surgery. Hence this has to be treated as new onset anginal symptoms remotely after myocardial infarction. Since [place] is ruled out, in view of the abnormal stress test, as per patient's wishes we will continue medical treatment. Cardiac catheterization if the patient has recurrence of angina/chest pain, or if further investigation of the abdominal aortic aneurysm requires surgical correction of the abdominal aortic aneurysm 2. ABNORMAL LEXISCAN CARDIOLITE NUCLEAR STRESS TESTING: Discussed this with the patient. Discussed the option of cardiac catheterization versus maximizing medical treatment. The patient to me stated that he would prefer medical treatment. We will start the patient on amlodipine since the patient does have of her underlying first-degree AV block. We will also add nitrates in the form of Imdur 30 mg daily. Continue statin and aspirin. We will follow the patient closely, and if recurrence of chest pain then would recommend cardiac catheterization. 3. CORONARY ARTERY DISEASE: History of old myocardial infarction. History of coronary bypass graft surgery. Details of his coronary bypass graft surgery is not available. 4. HYPERTENSION: Blood pressure well controlled on current medication. 5. 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 Continue the same. Nephrology has been consulted. 6. C OPD: Patient noted to be wheezing.? Acute exacerbation of COPD. Recommend intensifying respiratory treatments. 7. HYPERLIPIDEMIA: Continue patient's statin. 8. History of renal cancer, and history of prostate cancer. End of the abdomen shows a 6 cm abdominal aortic aneurysm. Will have patient see the vascular surgeon in [place], [place], to assess this. His medications have been reviewed. Discussed with the hospitalist. The patient's at present stable to be discharged. Discussed all the above with the patient and patient's daughter. They have my cell phone number, and they know to contact me if any problems. Medical decision making is of moderate to high complexity. Note 40 minutes spent on this patient, with more than 50% of time spent in direct patient care. Will sign off the patient, and follow the patient has an outpatient. Thanking you for allowing me to participate in the care of this patient 9.Peripheral vascular disease: History of abdominal aortic aneurysm.
--- NOTE | 2018-04-21 13:29 | DRAGON STRESS TEST REPORT ---
2 Day Intravenous Lexiscan Cardiolite stress test using single photon emmision computerized tomography. Date of Resting procedure: 04/18/2018. Date of Stress procedure: 04/19/2018. Ordering Provider: Dr. Marcy Dunham Indication: Chest pain the patient with history of coronary artery disease, old myocardial infarction, and history of coronary artery by Bypass graft surgery.. Coronary risk factors: Age, hypertension, and dyslipidemia. Resting EKG: Sinus Rhythm. First-degree AV block. Stress EKG: No changes of ischemia. The patient had no chest pain or discomfort, and there was no progression to high-grade AV block, or 80 atrial or ventricular arrhythmias seen. Reason for termination: Protocol. Conclusions: Normal EKG and hemodynamic response to IV Lexiscan. Nuclear data: At rest, on 04/18/2018 the patient was given 12.57 millicuries of technetium 99m sestamibi injected intravenously. As per protocol rest non gated SPECT images were obtained. Stress imaging was not done that day because of the patient wheezing. Subsequently on 04/19/2018, the patient was given intravenous Lexiscan at a dose of 0.4 mg in 5 mL intravenously, followed by flush with normal saline. Subsequently the stress dose of 35.3 millicuries of technetium 99m sestamibi was injected intravenously. As per protocol stress gated images were obtained. Nuclear interpretation: Review of images showed that liver contamination artifact of the inferior wall. But in spite of this there is a moderate perfusion defect of apical anterior wall in the stress images, which normalized in the rest images. There is also a small area of perfusion defect in the stress images , of moderate intensity, involving the LV apex, which mostly resolved, with only mild perfusion defect in the LV apex in the rest images. This area had slightly diminished motion contraction and thickening. There is moderate to severe perfusion defect involving the basal and mid inferior wall in the stress images. This area had mild to moderate perfusion defect in the resting images. This area of the basal and mid inferior wall had mildly diminished motion contraction and thickening the gated study. The rest of the segments of the myocardium had normal perfusion at rest, and normal perfusion post stress with IV Lexiscan. The rest of the segments of the myocardium had normal thickening , but mildly decreased diffuse hypokinesis, by gated study. T. I D. ratio was normal at 1.04. Computer read rest, and stress left ventricular ejection fraction were 45 %, and 47 %, respectively. 1. There is scintigraphic evidence of Lexiscan induced myocardial ischemia of the apical anterior wall, small area of the LV apex in a setting of scar, and moderate to severe reversible ischemia in the basal and mid inferior wilde in the setting of scar/myocardial infarction.. 2. There is scintigraphic evidence of myocardial infarction/scar involving a small area of the LV apex, and also a mild scar in the basal and mid inferior wilde with reversible ischemia as mentioned earlier. 3. Ischemic cardiomyopathy with LV ejection fraction of 45% to 47%. Recommendations: 1.Aggressive risk factor modification, and treating the underlying co- morbidities. 2. Will discuss with the patient as to whether he wants to be treated medically , with maximizing medical treatment for his coronary artery disease, versus cardiac catheterization. Also would recommend checking an echocardiogram for LV ejection fraction correlation. Will discuss with the patient in detail. Discussed with the hospitalist taking care of the patient. OLENA
--- NOTE | 2018-04-21 14:55 | PDOC DISCHARGE SUMMARY ---
General - Admit/Disc Date/PCP Admission Date/Primary Care Provider: 04/17/18 05:16 Discharge Date: 04/20/18 - Discharge Diagnosis (1) Chest pain Is this a current diagnosis for this admission?: Yes (2) ESRD (end stage renal disease) on dialysis Is this a current diagnosis for this admission?: Yes (3) Hypertension Is this a current diagnosis for this admission?: Yes (4) COPD (chronic obstructive pulmonary disease) Is this a current diagnosis for this admission?: Yes - Additional Information Resuscitation Status: Do Not Intubate Discharge Diet: Cardiac Discharge Activity: Activity As Tolerated Prescriptions: Amlodipine Besylate [Norvasc 10 mg Tablet] 10 mg PO QHS #30 tablet Fluticasone/Salmeterol [Advair 250-50 Diskus 14 Dose/Diskus] 1 inh IH Q12 #1 inhaler Prednisone 20 mg PO DAILY 7 Days #15 tablet Tiotropium Seiling [Spiriva Handihaler 5 Cap/Kit (18 Mcg/Cap)] 1 cap IH DAILY # 1 kit Home Medications: Aspirin [Ecotrin 81 mg EC Tablet] 81 mg PO DAILY 04/17/18 Atorvastatin Calcium [Lipitor 20 mg Tablet] 20 mg PO QHS 04/17/18 Calcitriol [Rocaltrol 0.25 mcg Capsule] 0.25 mcg PO DAILY 04/17/18 Calcium Carbonate [Tums Chewable 500 mg Tab.chew] 500 mg PO QPM 04/17/18 Folic Acid/Vitamin B Comp W-C [Nephrocaps Multiple Vitamin Capsule] 1 cap PO QHS 04/17/18 Isosorbide Mononitrate [Ismo 20 mg Tablet] 20 mg PO Q12 04/17/18 Magnesium Oxide [Mag-Ox 400 mg Tablet] 400 mg PO DAILY 04/17/18 Multivit-Min/Folic/Vit K/Lycop [One-A-Day Men's 50 Plus Tablet] 1 each PO DAILY 04/17/18 Omeprazole 20 mg PO DAILY 04/17/18 Sodium Bicarbonate [Sodium Bicarbonate 650 mg Tablet] 650 mg PO Q12 04/17/18 Amlodipine Besylate [Norvasc 10 mg Tablet] 10 mg PO QHS #30 tablet 04/20/18 Fluticasone/Salmeterol [Advair 250-50 Diskus 14 Dose/Diskus] 1 inh IH Q12 #1 inhaler 04/20/18 Prednisone 20 mg PO DAILY 7 Days #15 tablet 04/20/18 Tiotropium Seiling [Spiriva Handihaler 5 Cap/Kit (18 Mcg/Cap)] 1 cap IH DAILY # 1 kit 04/20/18 History of Present Illness History of Present Illness: TYLOR JIMENEZ is a 77 year old male presents to the emergency department secondary to 2-hour history of pain. Described as sharp, radiating to his back. Denies chest pain. Associated with increased heart rate, denies shortness of breath. Denies pain at this time. Patient has incisional disease and is on dialysis Sunday for the past 2 years. States he also has a history of coronary artery disease status post NC greater than 20 years ago. Saw his volunteer patient representative approximately 1 week ago, no changes made at this time. Patient is alert oriented x3, resting comfortably in bed and does not appear to be distressed. Hospital Course Hospital Course: 77 y.o. M who initially called EMS because he woke from sleep with chest pain. En route to [facility], the patient received 1 SL Nitro tablet and 3 81mg ASA tablets. By the time the patient arrived to the ED, he was chest pain free. EKG shows 1st degree heart block, RBBB, no evidence of acute infarction or ischemia. Lab work indicated renal failure, but is otherwise benign. Serial cardiac enzymes were normal. Abdominal ultrasound was performed to evaluate old AAA, results were benign. Cardiolite stress test results were abnormal: Lexiscan induced NC of the apical anterior wall, moderate to severe reversible ischemia in the basal and midinferior wilde, ischemic cardiomyopathy with LVEF 45%. Dr. Dunham discussed treatment options with the patient, cardiac catheterization versus medical management. The patient stated he would prefer medical management. Dr. Dunham also discussed these treatment options with the patient's daughter. He recommends cardiac catheterization if the patient has recurrence of angina/chest pain, or if further investigation of the abdominal aortic aneurysm requires surgical correction of the abdominal aortic aneurysm. The patient's Coreg was switched to Toprol XL (due to history of COPD) and the patient was prescribed Imdur. No other changes were made to his medication regimen. Following 3 days in the hospital, the patient was deemed safe for discharge. For any further information regarding this patient's hospitalization, please refer to the EMR. Physical Exam Vital Signs: Temp Pulse Resp BP Pulse Ox 98.6 F 72 18 102/49 L 92 04/20/18 15:08 04/20/18 15:08 04/20/18 15:08 04/20/18 15:08 04/20/18 15:08 Intake & Output 04/20/18 04/21/18 04/22/18 06:59 06:59 06:59 Intake Total 522 1046 Output Total 1850 100 Balance -1328 946 Weight 82.6 kg Results Laboratory Results: 04/19/18 05:04 04/19/18 05:04 04/17/18 04/17/18 04/17/18 08:03 14:36 22:26 Troponin I 0.052 0.047 0.049 NT-Pro-B Natriuret Pep 04/19/18 05:04 Troponin I NT-Pro-B Natriuret Pep 5630 H Impressions: Chest X-Ray 04/17/18 02:33 IMPRESSION: 1. No acute pulmonary process identified. Renal Ultrasound 04/19/18 00:00 IMPRESSION: Abdominal aortic aneurysm measuring 6 cm in diameter by ultrasound. Status: Imported from [facility] Qual[facility] - * PATIENT BEING DISCHARGED WITH ANY OF THE FOLLOWING DIAGNOSIS: No Plan Discharge Plan: Discharge home. Continue scheduled MWF HD. Time Spent: Less than 30 Minutes
== END 2018-04-20 16:20 | disposition home or self-care (01) | DRG 302 ==
LOC: ER 02:10 → OBSVTOIN 05:16 → EH 05:16 → 4N 08:30
PROVIDERS: ADMIT Family Medicine; ATTEND Family Medicine
PROC: 5A1D70Z Performance of Urinary Filtration, Intermittent, Less than 6 Hours Per Day (ICD-10-PCS; principal; 2018-04-17)
PROC: 5A1D70Z Performance of Urinary Filtration, Intermittent, Less than 6 Hours Per Day (ICD-10-PCS; 2018-04-19)
PROC: 3E02340 Introduction of Influenza Vaccine into Muscle, Percutaneous Approach (ICD-10-PCS; 2018-04-20)
DX: I25.10 Atherosclerotic heart disease of native coronary artery without angina pectoris (principal); N18.6 End stage renal disease; I13.11 Hypertensive heart and chronic kidney disease without heart failure, with stage 5 chronic kidney disease, or end stage renal disease; I25.5 Ischemic cardiomyopathy; Z99.2 Dependence on renal dialysis; I45.10 Unspecified right bundle-branch block; J44.9 Chronic obstructive pulmonary disease, unspecified; I71.4 Abdominal aortic aneurysm, without rupture; M10.9 Gout, unspecified; D63.1 Anemia in chronic kidney disease; H91.93 Unspecified hearing loss, bilateral; I25.2 Old myocardial infarction; E78.5 Hyperlipidemia, unspecified; I73.9 Peripheral vascular disease, unspecified; Z66 Do not resuscitate; Z85.46 Personal history of malignant neoplasm of prostate; Z85.528 Personal history of other malignant neoplasm of kidney; Z95.5 Presence of coronary angioplasty implant and graft; Z96.641 Presence of right artificial hip joint; Z88.1 Allergy status to other antibiotic agents; Z87.440 Personal history of urinary (tract) infections; Z93.6 Other artificial openings of urinary tract status; Z23 Encounter for immunization
CPT/HCPCS: 36415; 71045; 76770; 78452; 80048; 80053; 80061; 80076; 83735; 83880; 84100; 84484; 85025; 90471; 90686; 93005; 93010; 93017; 94640; 99285; A9500; G0008; J1644; J2785; J2920; J2930; J3490; J7620

== ENCOUNTER 2018-05-24 15:21 | Emergency (ER) | payer OTHER, MEDICARE ==
--- NOTE | 2018-05-24 15:48 | ER Document Report ---
ED Medical Screen (RME) - General Chief Complaint: Abdominal Pain >50 Stated Complaint: BLOOD IN STOOL/ABDOMINAL PAIN Time Seen by Provider: 05/24/18 15:46 Notes: 77 years old male who has a urostomy tube for the last 20 years. It was placed for bladder cancer. Had no problem so far except last 3 days having bloody urine. He is also on hemodialysis. Still passing urine. Having generalized abdominal pain but no nausea vomiting. No fever chills or other constitutional symptoms. He had his dialysis this morning. TRAVEL OUTSIDE OF THE [place] IN LAST 30 DAYS: No - Related Data Allergies/Adverse Reactions: ciprofloxacin [From Cipro] Allergy (Verified 05/24/18 15:23) Past Medical History - Past Medical History Cardiac Medical History: Reports: Hx Congestive Heart Failure, Hx Coronary Artery Disease, Hx Hypercholesterolemia, Hx Hypertension, Hx Peripheral Vascular Disease Pulmonary Medical History: Reports: Hx COPD - Possible Neurological Medical History: Denies: Hx Cerebrovascular Accident, Hx Seizures Renal/ Medical History: Reports: Hx End Stage Renal Disease - On hemodialysis Sunday and Sunday. Denies: Hx Peritoneal Dialysis Malignancy Medical History: Reports Hx Renal (Kidney) Cancer - Bladder and prostate cancer Musculoskeltal Medical History: Reports Hx Gout Psychiatric Medical History: Denies: Hx Depression Infectious Medical History: Reports: Hx C-Diff - Status post fecal transplant Past Surgical History: Reports: Hx Cardiac Catheterization, Hx Cardiac Surgery - CABG, Hx Coronary Artery Bypass Graft, Hx Genitourinary Surgery - urostomy, Hx Orthopedic Surgery - Right hip hemiarthroplasty August 2016, Hx Vascular Surgery - AAA repair, Other - Nephrostomy tube placement, creation of ileal conduit, prostatectomy - Immunizations Immunizations up to date: Yes Hx Diphtheria, Pertussis, Tetanus Vaccination: Yes History of Influenza Vaccine for 04/2017 - 09/2017 Season: Yes Influenza Administration Date for 04/2017 - 09/2017 Season: 04/15/17 Physical Exam - Vital signs Vitals: Temp Pulse Resp BP Pulse Ox 97.8 F 76 16 120/60 95 05/24/18 15:36 05/24/18 15:36 05/24/18 15:36 05/24/18 15:36 05/24/18 15:36 Course - Vital Signs Vital signs: Temp Pulse Resp BP Pulse Ox 97.8 F 76 16 120/60 95 05/24/18 15:36 05/24/18 15:36 05/24/18 15:36 05/24/18 15:36 05/24/18 15:36
--- NOTE | 2018-05-24 16:28 | RADIOLOGY REPORT (SQ) ---
EXAM DESCRIPTION: KUB/ABDOMEN (SINGLE VIEW) COMPLETED DATE/TIME: 05/24/2018 4:18 pm REASON FOR STUDY: Abdominal pain COMPARISON: Three-way abdomen series 11/15/2014 NUMBER OF VIEWS: One view. TECHNIQUE: Supine radiographic image of the abdomen acquired. LIMITATIONS: None. FINDINGS: BOWEL GAS PATTERN: A right lower quadrant ostomy is present. Nonobstructive nonspecific b owel gas pattern with a air in nondistended small bowel loops and moderate stool in the colon. CALCIFICATIONS: No suspicious calcifications. SOFT TISSUES: No gross mass or suggestion of organomegaly. HARDWARE: Abdominal aortic stent graft is present with right iliac limb. Peripherally calcified aneu rysm is similar compared to plain films 11/15/2014. BONES: Old right hip replacement. Degenerative convex leftward lumbar curvature OTHER: No other significant finding. IMPRESSION: NO RADIOGRAPHIC EVIDENCE FOR ACUTE ABDOMINAL DISEASE. TECHNICAL DOCUMENTATION: JOB ID: [id number] [employer]- All Rights Reserved Reading location - IP/workstation name: [email or web address]
[2018-05-24 16:36] LABS: ABSOLUTE EOSINOPHILS # (AUTO) 0.2 10^3/uL (0.0-0.6); ABSOLUTE LYMPHOCYTES (AUTO) 1.4 10^3/uL (0.5-4.7); ABSOLUTE MONOCYTES (AUTO) 0.6 10^3/uL (0.1-1.4); ABSOLUTE NEUT (AUTO) 3.1 10^3/uL (1.7-8.2); BASOPHILS % (AUTO) 0.8 % (0-2); EOSINOPHILS % (AUTO) 3.8 % (0-6); HEMATOCRIT 38.7 % (37.9-51.0); HEMOGLOBIN 12.8 g/dL (13.5-17.0); LYMPHOCYTES % (AUTO) 26.5 % (13-45); MEAN CORPUSCULAR HEMOGLOBIN 30.7 pg (27.0-33.4); MEAN CORPUSCULAR HGB CONC 33.2 g/dL (32.0-36.0); MEAN CORPUSCULAR VOLUME 93 fl (80-97); MONOCYTES % (AUTO) 10.7 % (3-13); PLATELET COUNT 173 10^3/uL (150-450); RED BLOOD COUNT 4.18 10^6/uL (4.35-5.55); RED CELL DISTRIBUTION WIDTH 16.2 % (11.5-14.0); SEGMENTED NEUTROPHILS % (AUTO) 58.2 % (42-78); TOTAL CELLS COUNTED % (AUTO) 100 %; WHITE BLOOD COUNT 5.4 10^3/uL (4.0-10.5)
[2018-05-24 16:52] LABS: ALANINE AMINOTRANSFERASE 21 U/L (21-72); ALBUMIN 4.2 g/dL (3.5-5.0); ALKALINE PHOSPHATASE 87 U/L (38-126); ANION GAP 13 (5-19); ASPARTATE AMINO TRANSFERASE 22 U/L (17-59); BILIRUBIN,DIRECT 0.4 mg/dL (0.0-0.4); BILIRUBIN,TOTAL 0.5 mg/dL (0.2-1.3); BLOOD UREA NITROGEN 20 mg/dL (7-20); CALCIUM 8.5 mg/dL (8.4-10.2); CARBON DIOXIDE 31 mmol/L (22-30); CHLORIDE 97 mmol/L (98-107); GLUCOSE 99 mg/dL (75-110); POTASSIUM 4.3 mmol/L (3.6-5.0); SODIUM 141.4 mmol/L (137-145); TOTAL PROTEIN 7.5 g/dL (6.3-8.2)
--- NOTE | 2018-05-24 18:23 | ER Document Report ---
ED General - General Chief Complaint: Abdominal Pain >50 Stated Complaint: BLOOD IN STOOL/ABDOMINAL PAIN Time Seen by Provider: 05/24/18 15:46 Mode of Arrival: Ambulatory Information source: Patient Notes: This is a 77-year-old man with a history of prostate and bladder cancer ( urostomy bag for the past 20 years), COPD, peripheral vascular disease ( abdominal and femoral aneurysm with stents), chronic kidney disease (on hemodialysis Sunday, Sunday, Sunday). Patient presents to the emergency room with gross hematuria for 2 days. He states that the blood was actually more clots 2 days ago and has gotten wet silk hanger over the last few days. He does state that he had some abdominal cramping earlier but denies any abdominal discomfort now. He denies any fever or chills. The patient is accompanied by his daughter who states that he got into renal failure from IV dye after a CT for abdominal aneurysm with stents. TRAVEL OUTSIDE OF THE [place] IN LAST 30 DAYS: No - HPI Onset: Last week Onset/Duration: Sudden Quality of pain: No pain Severity: None Pain Level: Denies Associated symptoms: denies: Chest pain, Fever, Nausea, Vomiting, Shortness of breath Exacerbated by: Denies Relieved by: Denies Similar symptoms previously: No Recently seen / treated by doctor: No - Related Data Allergies/Adverse Reactions: ciprofloxacin [From Cipro] Allergy (Verified 05/24/18 15:23) Past Medical History - General Information source: Patient - Social History Smoking Status: Former Smoker Cigarette use (# per day): No Chew tobacco use (# tins/day): No Frequency of alcohol use: None Drug Abuse: None Lives with: Family Family History: None, Malignancy Patient has suicidal ideation: No Patient has homicidal ideation: No - Past Medical History Cardiac Medical History: Reports: Hx Congestive Heart Failure, Hx Coronary Artery Disease, Hx Hypercholesterolemia, Hx Hypertension, Hx Peripheral Vascular Disease Pulmonary Medical History: Reports: Hx COPD - Possible Neurological Medical History: Denies: Hx Cerebrovascular Accident, Hx Seizures Renal/ Medical History: Reports: Hx End Stage Renal Disease - On hemodialysis Sunday and Sunday. Denies: Hx Peritoneal Dialysis Malignancy Medical History: Reports Hx Renal (Kidney) Cancer - Bladder and prostate cancer Musculoskeletal Medical History: Reports Hx Gout Psychiatric Medical History: Denies: Hx Depression Infectious Medical History: Reports: Hx C-Diff - Status post fecal transplant Past Surgical History: Reports: Hx Cardiac Catheterization, Hx Cardiac Surgery - CABG, Hx Coronary Artery Bypass Graft, Hx Genitourinary Surgery - urostomy, Hx Orthopedic Surgery - Right hip hemiarthroplasty August 2016, Hx Urinary Tract Surgery - bladder /prostate, Hx Vascular Surgery - AAA repair, Other - Nephrostomy tube placement, creation of ileal conduit, prostatectomy - Immunizations Immunizations up to date: Yes Hx Diphtheria, Pertussis, Tetanus Vaccination: Yes Hx Pneumococcal Vaccination: 04/17/14 Review of Systems - Review of Systems Constitutional: denies: Chills, Fever EENT: No symptoms reported Cardiovascular: No symptoms reported Respiratory: No symptoms reported Gastrointestinal: No symptoms reported, Abdominal pain - Patient had abdominal pain yesterday but none today.. denies: Abdomen distended Genitourinary: See HPI Male Genitourinary: No symptoms reported Musculoskeletal: No symptoms reported Skin: No symptoms reported Hematologic/Lymphatic: No symptoms reported Neurological/Psychological: No symptoms reported Physical Exam - Vital signs Vitals: Temp Pulse Resp BP Pulse Ox 97.8 F 76 16 120/60 95 05/24/18 15:36 05/24/18 15:36 05/24/18 15:36 05/24/18 15:36 05/24/18 15:36 Notes: Physical exam: GENERAL: Patient is alert and oriented x3 and in no acute distress HEAD: Atraumatic, normocephalic. EYES: Pupils equal round and reactive to light, extraocular movements intact, sclera anicteric, conjunctiva are normal. ENT: TMs normal, nares patent, oropharynx clear without exudates. Moist mucous membranes. NECK: Normal range of motion, supple without obvious mass or JVD. LUNGS: Scattered wheezing bilaterally HEART: Regular rate and rhythm without murmurs, rubs or gallops. ABDOMEN: Soft, normoactive bowel sounds. No tenderness to palpation. No guarding, no rebound. No masses appreciated. EXTREMITIES: Normal range of motion, no pitting or edema. No clubbing or cyanosis. NEUROLOGICAL: Cranial nerves II through XII grossly intact. Normal speech, moving all extremities. PSYCH: Normal mood, normal affect. SKIN: Warm, Dry, normal turgor, no rashes or lesions noted. Course - Re-evaluation Re-evalutation: 05/24/18 23:56 Patient does not have any abdominal pain at this time. He looks good. I discussed the results with the patient as well as his son and daughter and the plan will be to give IV antibiotics x1 dose for a urinary infection. Patient is on dialysis and is next receiving dialysis on Sunday. I discussed the case with Dr. Cespedes who is the patient's doctor and she will follow-up the urine culture sent tonight. She will decide whether to give another dose of IV antibiotics on Sunday. I have also referred the patient to urology in [facility]. I have advised him to return to the ER if the bleeding worsens. - Vital Signs Vital signs: Temp Pulse Resp BP Pulse Ox 98.1 F 70 16 114/61 96 05/24/18 22:27 05/24/18 22:27 05/24/18 22:27 05/24/18 22:27 05/24/18 22:27 - Laboratory Result Diagrams: 05/24/18 15:55 05/24/18 15:55 Laboratory results interpreted by me: 05/24/18 05/24/18 05/24/18 15:55 15:55 18:50 RBC 4.18 L Hgb 12.8 L RDW 16.2 H Chloride 97 L Carbon Dioxide 31 H Creatinine 2.37 H Est GFR ( Amer) 32 L Est GFR (Non-Af Amer) 27 L Urine Protein >=500 H Urine Blood MODERATE H Ur Leukocyte Esterase SMALL H - Diagnostic Test Radiology reviewed: Image reviewed, Reports reviewed - CT of the abdomen shows no acute intra-abdominal process. The aortic stents appear intact. Does not appear to be any masses around the system. There is no evidence of an obstructive uropathy. Discharge - Discharge Clinical Impression: UTI Condition: Stable Disposition: HOME, SELF-CARE Additional Instructions: As we discussed, your urine test showed blood as well as white cells and bacteria suggestive of infection. You were given a dose of IV antibiotics (ceftriaxone) while you are in the ER. This medicine will stay in your system until your next dialysis on Sunday. At that time, the doctor at the dialysis center can check a urine culture. They will give you another dose of antibiotics if the culture comes back positive. I have discussed this plan with Dr. Cespedes who is in agreement. Also, I want you to follow-up with the urologist in [facility]: I put the number below. [facility] Office [address] [place], [place] [phone] [place] [facility] [address] [place], [place] [phone] Return to the emergency room for worsening bleeding, any pain or any concerns or getting worse.
--- NOTE | 2018-05-24 18:57 | RADIOLOGY REPORT (SQ) ---
EXAM DESCRIPTION: CT ABD/PELVIS NO ORAL OR IV COMPLETED DATE/TIME: 05/24/2018 6:45 pm REASON FOR STUDY: gross hematuria, abd pain COMPARISON: 2014. TECHNIQUE: CT scan of the abdomen and pelvis performed without intravenous or oral contrast. Images reviewed with lung, soft tissue, and bone windows. Reconstructed coronal and sagittal MPR images revi ewed. All images stored on PACS. All CT scanners at this facility use dose modulation, iterative reconstruction, and/or weight based d osing when appropriate to reduce radiation dose to as low as reasonably achievable (ALARA). [facility]: Dose Right [facility]: CareDose [facility]: Dose Right [facility]: Teradose 4D [facility]: LxDATA RADIATION DOSE: mGy. LIMITATIONS: None. FINDINGS: LOWER CHEST: Motion artifact without infiltrate or suspicious basilar opacity. Cardiac en largement. Sizable hiatal hernia. NON-CONTRASTED LIVER, SPLEEN, ADRENALS: Evaluation limited by lack of IV contrast. No identified sign ificant masses. PANCREAS: No masses. No peripancreatic inflammatory changes. GALLBLADDER: Mild cholelithiasis. RIGHT KIDNEY AND URETER: No solid masses. No significant calcification. No hydronephrosis or hydroure ter. LEFT KIDNEY AND URETER: No solid masses. No significant calcification. No hydronephrosis or hydrouret er. AORTA AND RETROPERITONEUM: Infrarenal abdominal aortic aneurysm post endovascular repair. Maximal sa c diameter 5.3 cm. Fairly stable compared to prior. Stent graft extends in to slightly ectatic righ t common iliac artery and into the proximal external iliac artery. There is bi femoral bypass graft in place. No retroperitoneal mass or adenopathy. BOWEL AND PERITONEAL CAVITY: Large amount of stool in the distal colon. No bowel obstruction or acut e inflammatory process. APPENDIX: Not visualized. PELVIS, BLADDER, AND ABDOMINAL WALL:Pelvis partially obscured by artifact related to a right hip repl acement. Bladder not seen. Regional surgical clips. Apparent cystectomy with urinary diversion. T here is are right lower quadrant ostomy. BONES: Osteopenia and spondylosis. Right hip replacement. OTHER: No other significant finding. IMPRESSION: 1. No acute or suspicious abdominopelvic abnormality. Specifically, no evidence of uri nary tract obstruction. Postoperative changes as above. TECHNICAL DOCUMENTATION: JOB ID: [id number] Quality ID # [id number]: Final reports with documentation of one or more dose reduction techniques (e.g., Au tomated exposure control, adjustment of the mA and/or kV according to patient size, use of iterative reconstruction technique) 2010 [employer]- All Rights Reserved Reading location - IP/workstation name: [email or web address]
[2018-05-24 19:19] LABS: APPEARANCE,URINE SLIGHTLY-CLOUDY; BILIRUBIN,URINE NEGATIVE (NEGATIVE); GLUCOSE, URINE NEGATIVE (NEGATIVE); KETONES,URINE NEGATIVE (NEGATIVE); LEUKOCYTE ESTERASE,URINE SMALL (NEGATIVE); NITRITE,URINE NEGATIVE (NEGATIVE); PROTEIN,URINE >=500 mg/dL (NEGATIVE); URINE SPECIFIC GRAVITY 1.012; UROBILINOGEN,URINE NEGATIVE mg/dL (<2.0)
[2018-05-24 19:21] LABS: COLOR,URINE BROWN
[2018-05-24] MEDS ORDERED: CEFTRIAXONE 1 GM/D5W RTU 1 GM/50 ML RTUPB IV ONE (21:21)
[2018-05-24 22:36] VITALS: BP 114/61
== END 2018-05-24 22:37 | disposition home or self-care (01) ==
LOC: ER 15:21
DX: N39.0 Urinary tract infection, site not specified (principal); R31.0 Gross hematuria; Z93.6 Other artificial openings of urinary tract status; Z85.46 Personal history of malignant neoplasm of prostate; Z85.51 Personal history of malignant neoplasm of bladder; J44.9 Chronic obstructive pulmonary disease, unspecified; I25.10 Atherosclerotic heart disease of native coronary artery without angina pectoris; I12.0 Hypertensive chronic kidney disease with stage 5 chronic kidney disease or end stage renal disease; N18.6 End stage renal disease; Z99.2 Dependence on renal dialysis; Z87.891 Personal history of nicotine dependence; Z88.1 Allergy status to other antibiotic agents; Z95.1 Presence of aortocoronary bypass graft
CPT/HCPCS: 99285; 96365; 36415; 87086; 85025; 87088; 80053; 81001; 87186; 74018; 74176; J0696

== ENCOUNTER 2018-09-16 15:35 | Inpatient (IN) | payer OTHER, MEDICARE ==
[2018-09-16] MEDS ORDERED: IPRATROPIUM/ALBUTEROL 0.5-2.5 MG/3 ML AMPUL NEB ONE ×2 (15:51→22:50)
[2018-09-16] MEDS ORDERED: MAGNESIUM SULFATE/D5W 1 GM/100 ML RTUPB IV ONE ×3 (15:52→16:33)
--- NOTE | 2018-09-16 16:00 | ER Document Report ---
Addendum entered and electronically signed by DONALD MILLER PA-C 09/17/18 14:18: Discharge - Discharge Clinical Impression: Acute UTI (urinary tract infection), End stage renal disease Condition: Stable Disposition: ADMITTED OBSERVATION Addendum entered and electronically signed by ALONSO CHAPPELL PA-C 09/16/18 22:26: Course - Re-evaluation Re-evalutation: Patient's abdomen and pelvis CT which was requested by hospitalist Dr. Castillo to rule out other signs of infections came back negative. Stable aneurysm that is well-known to the patient. Discussed this case again with Dr. Castillo who will accept the patient for admission to this facility. - Vital Signs Vital signs: Temp Pulse Resp BP Pulse Ox 99 F 21 H 137/90 H 99 09/16/18 17:25 09/16/18 19:01 09/16/18 19:01 09/16/18 18:00 - Laboratory Result Diagrams: 09/16/18 15:30 09/16/18 15:30 Laboratory results interpreted by me: 09/16/18 09/16/18 09/16/18 15:30 15:30 16:43 WBC 12.1 H RBC 3.88 L Hgb 12.1 L Hct 35.8 L RDW 14.4 H Seg Neuts % (Manual) 89 H Lymphocytes % (Manual) 4 L Abs Neuts (Manual) 10.8 H Carbon Dioxide 31 H BUN 27 H Creatinine 2.98 H Est GFR ( Amer) 25 L Est GFR (Non-Af Amer) 21 L Glucose 130 H Lactic Acid 3.1 H Direct Bilirubin 0.6 H ALT 12 L Total Protein 8.3 H Urine Protein Urine Blood Urine Urobilinogen Ur Leukocyte Esterase 09/16/18 09/16/18 16:54 20:50 WBC RBC Hgb Hct RDW Seg Neuts % (Manual) Lymphocytes % (Manual) Abs Neuts (Manual) Carbon Dioxide BUN Creatinine Est GFR ( Amer) Est GFR (Non-Af Amer) Glucose Lactic Acid 2.7 H Direct Bilirubin ALT Total Protein Urine Protein 30 H Urine Blood SMALL H Urine Urobilinogen 4.0 H Ur Leukocyte Esterase LARGE H Addendum entered and electronically signed by ALONSO CHAPPELL PA-C 09/16/18 21:26: Discharge - Discharge Clinical Impression: Acute UTI (urinary tract infection), End stage renal disease Condition: Stable Disposition: ADMITTED OBSERVATION Admitting Provider: Hospitalist - Dr. Castillo Unit Admitted: Medical Floor [facility]: [facility] - Follow up as needed Addendum entered and electronically signed by DONALD MILLER PA-C 09/16/18 19:28: Course - Re-evaluation Re-evalutation: 09/16/18 19:16 Dr. Roth called from [facility]. He states that this is a lateral movement and an EMTALA violation if we were to transfer as we can provide the services here and he does not need emergent dialysis. He states that if we transfer the patient there that he will need the name of myself, tour sales representative, and hospitalist and he will be filing a formal complaint. I then called and spoke with our nighttime hospitalist, Dr. Castillo, who would like a CT scan of his abdomen and pelvis after discussion with with Dr. Monaco regarding contrast versus no contrast and is acceptance for this patient to be admitted here in the hospital. A page was sent for Dr. Monaco to return my call. 09/16/18 19:[address] Monaco. He states that we can bring in if the hospitalist is on-board, but if the patient needs dialysis the patient will then need transferred as we do not have any dialysis beds available at this time. CT will be ordered and then case followed by Christie LUJAN. - Vital Signs Vital signs: Temp Pulse Resp BP Pulse Ox 99 F 21 H 137/90 H 99 09/16/18 17:25 09/16/18 19:01 09/16/18 19:01 09/16/18 18:00 - Laboratory Result Diagrams: 09/16/18 15:30 09/16/18 15:30 Laboratory results interpreted by me: 09/16/18 09/16/18 09/16/18 15:30 15:30 16:43 WBC 12.1 H RBC 3.88 L Hgb 12.1 L Hct 35.8 L RDW 14.4 H Seg Neuts % (Manual) 89 H Lymphocytes % (Manual) 4 L Abs Neuts (Manual) 10.8 H Carbon Dioxide 31 H BUN 27 H Creatinine 2.98 H Est GFR ( Amer) 25 L Est GFR (Non-Af Amer) 21 L Glucose 130 H Lactic Acid 3.1 H Direct Bilirubin 0.6 H ALT 12 L Total Protein 8.3 H Urine Protein Urine Blood Urine Urobilinogen Ur Leukocyte Esterase 09/16/18 16:54 WBC RBC Hgb Hct RDW Seg Neuts % (Manual) Lymphocytes % (Manual) Abs Neuts (Manual) Carbon Dioxide BUN Creatinine Est GFR ( Amer) Est GFR (Non-Af Amer) Glucose Lactic Acid Direct Bilirubin ALT Total Protein Urine Protein 30 H Urine Blood SMALL H Urine Urobilinogen 4.0 H Ur Leukocyte Esterase LARGE H Discharge - Discharge Clinical Impression: Acute UTI (urinary tract infection), End stage renal disease Sepsis Qualifiers: Sepsis type: sepsis due to unspecified organism Qualified Code(s): A41.9 - Sepsis, unspecified organism Condition: Stable [facility]errals: [facility] [[facility]] - Follow up as needed Original Note: ED General - General Stated Complaint: FEVER Time Seen by Provider: 09/16/18 15:40 Primary Care Provider: [facility] [[facility]] - Follow up as needed TRAVEL OUTSIDE OF THE [place] IN LAST 30 DAYS: No - HPI Notes: Patient is a 78-year-old male with a history of prostate and bladder cancer (urostomy bag for the past 20 years), COPD, peripheral vascular disease (abdominal and femoral aneurysm with stents), chronic kidney disease (on hemodialysis Sunday, Sunday, Sunday) who presents to the emergency department from dialysis with concern of possible altered mental status with fever and questionable UTI. Dialysis told EMS that he usually acts like this (doesn't answer their questions occasionally) when he has a urinary infection. When EMS arrived they noticed a fever of 103 orally. They did administer Tylenol about 2-1/2 hours ago. Patient states that he has had an occasional cough as well and some wheezing. He has no other concerns or complaints, but does not want to answer all of my questions. Denies any headache, neck pain, chest pain, syncope, abdominal pain, nausea/vomiting/diarrhea, back pain, or rash. - Related Data Allergies/Adverse Reactions: ciprofloxacin [From Cipro] Allergy (Verified 05/24/18 15:23) Past Medical History - Social History Smoking Status: Unknown if Ever Smoked Family History: None, Malignancy - Past Medical History Cardiac Medical History: Reports: Hx Congestive Heart Failure, Hx Coronary Artery Disease, Hx Hypercholesterolemia, Hx Hypertension, Hx Peripheral Vascular Disease Pulmonary Medical History: Reports: Hx COPD - Possible Neurological Medical History: Denies: Hx Cerebrovascular Accident, Hx Seizures Renal/ Medical History: Reports: Hx End Stage Renal Disease - On hemodialysis Sunday and Sunday. Denies: Hx Peritoneal Dialysis Malignancy Medical History: Reports Hx Renal (Kidney) Cancer - Bladder and prostate cancer Musculoskeletal Medical History: Reports Hx Gout Psychiatric Medical History: Denies: Hx Depression Infectious Medical History: Reports: Hx C-Diff - Status post fecal transplant Past Surgical History: Reports: Hx Cardiac Catheterization, Hx Cardiac Surgery - CABG, Hx Coronary Artery Bypass Graft, Hx Genitourinary Surgery - urostomy, Hx Orthopedic Surgery - Right hip hemiarthroplasty August 2016, Hx Urinary Tract Surgery - bladder /prostate, Hx Vascular Surgery - AAA repair, Other - Nephrostomy tube placement, creation of ileal conduit, prostatectomy - Immunizations Immunizations up to date: Yes Hx Diphtheria, Pertussis, Tetanus Vaccination: Yes Hx Pneumococcal Vaccination: 04/17/14 Review of Systems - Review of Systems -: Yes All other systems reviewed and negative Physical Exam - Vital signs Vitals: Temp Resp Pulse Ox 98.7 F 25 H 100 09/16/18 15:44 09/16/18 15:44 09/16/18 15:44 - Notes Notes: PHYSICAL EXAMINATION: GENERAL: Well-appearing, well-nourished and in no acute distress. A&Ox1. Pt answers easy questions, but will not answer some of my other more involved questions. HEAD: Atraumatic, normocephalic. Non-tender. EYES: Pupils equal round and reactive to light, extraocular movements intact, sclera anicteric, conjunctiva are normal. No nystagmus. ENT: Nares patent and without discharge. oropharynx clear without exudates. No tonsilar hypertrophy or erythema. Moist mucous membranes. NECK: Normal range of motion, supple without lymphadenopathy. No rigidity/meningismus. No midline tenderness. LUNGS: wheezing throughout and b/l. No retractions. HEART: Regular rate and rhythm without murmurs, rubs, gallops. ABDOMEN: Soft, nontender, nondistended abdomen. No guarding, no rebound. Normal bowel sounds present. No CVA tenderness bilaterally. Musculoskeletal: Ext's b/l: FROM to passive/active. Strength 4+/5 b/l. No defi cits noted. No bony tenderness of extremities. Extremities: No cyanosis, clubbing, or edema b/l. Peripheral pulses 2+. Capillary refill less than 2 seconds. NEUROLOGICAL: GCS 15. Cranial nerves grossly intact. Normal speech. Normal sensory, motor exams. Reflexes 2+ b/l. IRENE's negative. Pronator drift negative. PSYCH: Normal mood, normal affect. SKIN: Warm, Dry, normal turgor, no rashes or lesions noted. Course - Re-evaluation Re-evalutation: 09/16/18 17:44 Patient is currently an afebrile, well-hydrated, 78-year-old male who presents to the emergency department with urosepsis. Vitals are acceptable currently. CBC shows an elevated white count with left shift. CMP is acceptable. Lactic acid of 3.1. See urinalysis results. Urine culture is pending. Influenza neg. Chest x-ray unremarkable as well as CT scan of the head. Patient was also given a breathing treatment and magnesium for his wheezing. Pt received fluids from EMS initially. I did call and speak with Dr. Fernandez, hospitalist, who would like me to talk with Dr. Monaco, Gael, prior but he will accept otherwise. Waiting for call back from Gael. 09/16/18 17:57 Due to his history of MRSA in the urine and previous culture, I was waiting to talk with Dr. Monaco about antibiotic choice. Spoke with Dr. Fernandez who recommends 1g Vanc at this time and we can adjust if I hear back otherwise from Dr. Monaco. He will be down to see the patient. 09/16/18 18:15 2nd page sent to Dr. Monaco. 09/16/18 18:22 Dr. Monaco declined stating that we are full and he cannot manage in our hospital due to being full. Dr. Fernandez cannot accept now as well. He still recommends the Vanc based on the C&S previously. I will start calling around to facilities but most are on diversion. If the patient is still here come morning, to place a consult for internal med consult per discussion with Dr. Fernandez. 09/16/18 18:49 I called and received a call back from Jennyfer Deshpande, Dr. Weaver (hospitalist), who accepted patient for transfer/admit. We spent 14+ minutes on the phone discussing his case, history, and current work up as well as medicine choices. She wanted imipenem 1 g added after the Vanc. - Vital Signs Vital signs: Temp Pulse Resp BP Pulse Ox 99 F 24 H 155/83 H 98 09/16/18 17:25 09/16/18 17:00 09/16/18 16:01 09/16/18 17:00 - Laboratory Result Diagrams: 09/16/18 15:30 09/16/18 15:30 Laboratory results interpreted by me: 09/16/18 09/16/18 09/16/18 15:30 15:30 16:43 WBC 12.1 H RBC 3.88 L Hgb 12.1 L Hct 35.8 L RDW 14.4 H Seg Neuts % (Manual) 89 H Lymphocytes % (Manual) 4 L Abs Neuts (Manual) 10.8 H Carbon Dioxide 31 H BUN 27 H Creatinine 2.98 H Est GFR ( Amer) 25 L Est GFR (Non-Af Amer) 21 L Glucose 130 H Lactic Acid 3.1 H Direct Bilirubin 0.6 H ALT 12 L Total Protein 8.3 H Urine Protein Urine Blood Urine Urobilinogen Ur Leukocyte Esterase 09/16/18 16:54 WBC RBC Hgb Hct RDW Seg Neuts % (Manual) Lymphocytes % (Manual) Abs Neuts (Manual) Carbon Dioxide BUN Creatinine Est GFR ( Amer) Est GFR (Non-Af Amer) Glucose Lactic Acid Direct Bilirubin ALT Total Protein Urine Protein 30 H Urine Blood SMALL H Urine Urobilinogen 4.0 H Ur Leukocyte Esterase LARGE H Critical Care Note - Critical Care Note Total time excluding time spent on procedures (mins): 32 Discharge - Discharge Clinical Impression: Acute UTI (urinary tract infection), End stage renal disease Sepsis Qualifiers: Sepsis type: sepsis due to unspecified organism Qualified Code(s): A41.9 - Sepsis, unspecified organism Condition: Stable Disposition: [facility] Referrals: [facility] [[facility]] - Follow up as needed
[2018-09-16 16:04] LABS: HEMATOCRIT 35.8 % (37.9-51.0); HEMOGLOBIN 12.1 g/dL (13.5-17.0); MEAN CORPUSCULAR HEMOGLOBIN 31.3 pg (27.0-33.4); MEAN CORPUSCULAR HGB CONC 33.9 g/dL (32.0-36.0); MEAN CORPUSCULAR VOLUME 92 fl (80-97); PLATELET COUNT 152 10^3/uL (150-450); RED BLOOD COUNT 3.88 10^6/uL (4.35-5.55); RED CELL DISTRIBUTION WIDTH 14.4 % (11.5-14.0); WHITE BLOOD COUNT 12.1 10^3/uL (4.0-10.5)
[2018-09-16 16:22] LABS: ABSOLUTE LYMPHOCYTES# (MANUAL) 0.5 10^3/uL (0.5-4.7); ABSOLUTE MONOCYTES # (MANUAL) 0.8 10^3/uL (0.1-1.4); ABSOLUTE NEUTROPHILS# (MANUAL) 10.8 10^3/uL (1.7-8.2); BASOPHILS % (MANUAL) 0 % (0-2); EOSINOPHILS % (MANUAL) 0 % (0-6); LYMPHOCYTES % (MANUAL) 4 % (13-45); MONOCYTES % (MANUAL) 7 % (3-13); SEGMENTED NEUTROPHILS % (MAN) 89 % (42-78); TOTAL CELLS COUNTED 100
[2018-09-16 16:23] LABS: ANISOCYTOSIS SLIGHT; PLATELET COMMENT ADEQUATE; TOXIC GRANULATION SLIGHT
--- NOTE | 2018-09-16 16:24 | RADIOLOGY REPORT (SQ) ---
EXAM DESCRIPTION: CHEST SINGLE VIEW COMPLETED DATE/TIME: 09/16/2018 4:10 pm REASON FOR STUDY: wheezing,cough,fever COMPARISON: 08/31/2016 EXAM PARAMETERS: NUMBER OF VIEWS: One view. TECHNIQUE: Single frontal radiographic view of the chest acquired. RADIATION DOSE: NA LIMITATIONS: None. FINDINGS: LUNGS AND PLEURA: Chronic elevation right diaphragm. No evidence of pulmonary edema or pn eumonia. MEDIASTINUM AND HILAR STRUCTURES: Stable. HEART AND VASCULAR STRUCTURES: Stable heart size. Normal vasculature. BONES: No acute findings. HARDWARE: CABG. OTHER: No other significant finding. IMPRESSION: NO ACUTE RADIOGRAPHIC FINDING IN THE CHEST. TECHNICAL DOCUMENTATION: JOB ID: [id number] [employer]- All Rights Reserved Reading location - IP/workstation name: [email or web address]
[2018-09-16 16:26] LABS: ALANINE AMINOTRANSFERASE 12 U/L (21-72); ALBUMIN 4.8 g/dL (3.5-5.0); ALKALINE PHOSPHATASE 101 U/L (38-126); ANION GAP 14 (5-19); ASPARTATE AMINO TRANSFERASE 51 U/L (17-59); BILIRUBIN,DIRECT 0.6 mg/dL (0.0-0.4); BILIRUBIN,TOTAL 0.9 mg/dL (0.2-1.3); BLOOD UREA NITROGEN 27 mg/dL (7-20); CALCIUM 8.8 mg/dL (8.4-10.2); CARBON DIOXIDE 31 mmol/L (22-30); CHLORIDE 98 mmol/L (98-107); GLUCOSE 130 mg/dL (75-110); SODIUM 142.7 mmol/L (137-145); TOTAL PROTEIN 8.3 g/dL (6.3-8.2)
[2018-09-16 16:32] LABS: VENOUS BLOOD HCO3 29.9 mmol/L (20-32); VENOUS BLOOD PCO2 50.3 mmHg (35-63); VENOUS BLOOD PH 7.39 (7.30-7.42)
--- NOTE | 2018-09-16 16:50 | RADIOLOGY REPORT (SQ) ---
EXAM DESCRIPTION: CT HEAD WITHOUT COMPLETED DATE/TIME: 09/16/2018 4:34 pm REASON FOR STUDY: AMS COMPARISON: None. TECHNIQUE: Axial images acquired through the brain without intravenous contrast. Images reviewed wi th bone, brain and subdural windows. Additional sagittal and coronal reconstructions were generated. Images stored on PACS. All CT scanners at this facility use dose modulation, iterative reconstruction, and/or weight based d osing when appropriate to reduce radiation dose to as low as reasonably achievable (ALARA). [facility]: Dose Right [facility]: CareDose [facility]: Dose Right [facility]: Teradose 4D [facility]: [employer] RADIATION DOSE: CT Rad equipment meets quality standard of care and radiation dose reduction techniq ues were employed. CTDIvol: 55.2 mGy. DLP: 1167 mGy-cm.mGy. LIMITATIONS: None. FINDINGS: VENTRICLES: Prominent. CEREBRUM: No masses. No hemorrhage. No midline shift. Areas of low density in the white matter mos t likely due to chronic micro-vascular ischemic change. No evidence for acute infarction. CEREBELLUM: No masses. No hemorrhage. No alteration of density. No evidence for acute infarction. EXTRAAXIAL SPACES: Age-related involutional change. No fluid collections. No masses. ORBITS AND GLOBE: No intra- or extraconal masses. Normal contour of globe without masses. CALVARIUM: No fracture. PARANASAL SINUSES: No fluid or mucosal thickening. SOFT TISSUES: No mass or hematoma. OTHER: No other significant finding. IMPRESSION: CHRONIC CHANGES OF ATROPHY AND MICROVASCULAR ISCHEMIA. NO ACUTE PROCESS. EVIDENCE OF ACUTE STROKE: NO. TECHNICAL DOCUMENTATION: JOB ID: [id number] Quality ID # [id number]: Final reports with documentation of one or more dose reduction techniques (e.g., Au tomated exposure control, adjustment of the mA and/or kV according to patient size, use of iterative reconstruction technique) 2010 [employer]- All Rights Reserved Reading location - IP/workstation name: [email or web address]
[2018-09-16 17:34] LABS: APPEARANCE,URINE CLOUDY; BILIRUBIN,URINE NEGATIVE (NEGATIVE); COLOR,URINE YELLOW; GLUCOSE, URINE NEGATIVE (NEGATIVE); KETONES,URINE NEGATIVE (NEGATIVE); LEUKOCYTE ESTERASE,URINE LARGE (NEGATIVE); NITRITE,URINE NEGATIVE (NEGATIVE); PROTEIN,URINE 30 mg/dL (NEGATIVE); URINE SPECIFIC GRAVITY 1.014
[2018-09-16 17:47] LABS: A TYPE INFLUENZA AG NEGATIVE (NEGATIVE); B INFLUENZA AG NEGATIVE (NEGATIVE)
[2018-09-16] MEDS ORDERED: VANCOMYCIN HCL INJ 1000 MG VIAL IV ONE (17:56)
[2018-09-16] MEDS ORDERED: IMIPENEM/CILASTATIN SODIUM INJ 500 MG VIAL IV ONE ×2 (18:44→21:15)
--- NOTE | 2018-09-16 20:38 | RADIOLOGY REPORT (SQ) ---
EXAM DESCRIPTION: CT ABDOMEN PELVIS WITHOUT IV CONTRAST COMPLETED DATE/TME: 09/16/2018 19:28 CLINICAL HISTORY: 78 years, Male, fever COMPARISON: None. TECHNIQUE: Images stored on PACS. All CT scanners at this facility use dose modulation, iterative reconstruction, and/or weight based dosing when appropriate to reduce radiation dose to as low as reasonably achievable (ALARA). [facility]: Dose Right [facility]: CareDose [facility]: Dose Right [facility]: Teradose 4D [facility]: [employer] LIMITATIONS: None. FINDINGS: EXAM DESCRIPTION: CLINICAL HISTORY: fever COMPARISON: None Available. TECHNIQUE: Contiguous axial images of the abdomen and pelvis were obtained followed by reconstruction images. This exam was performed according to our departmental dose-optimization program, which includes automated exposure control, adjustment of the mA and/or kV according to patient size and/or use of iterative reconstruction technique. FINDINGS: Abdominal aortic aneurysm measures 53 mm AP by 54 mm transverse. Prosthetic right hip is present. Aorta and iliac arterial stents are present. There is atelectasis at the right lung base. There is a paraesophageal hernia on the left. There is atrophy of each kidney. The heart is enlarged. Motion significantly limits detail. Moderate stool is in the rectum. There is colonic diverticulosis. No definite diverticulitis. There is moderate leftward scoliosis of the lumbar spine. There is a calcified gallstone in the gallbladder with no evidence of pericholecystic fluid or gallbladder wall thickening. No other acute abnormality is seen with no evidence of bowel obstruction or perforation. IMPRESSION: 5.4 cm abdominal aortic aneurysm, known. Recommend continued vascular consultation and follow-up every 6 months. Reference: J Vasc Surg 2009 Oct;50(4 Suppl):S2-49. Left paraesophageal hernia. Cardiomegaly. Moderate stool in the rectum. Renal atrophy bilaterally. Gallstone without other evidence of acute cholecystitis.
[2018-09-16] MEDS ORDERED: NA PHOS,M-B/NA PHOS,DI-BA (ADULT) 133 ML ENEMA PR ONE (21:20)
[2018-09-16] MEDS ORDERED: LACTULOSE SYRUP 20 GM/30 ML UDCUP PO ONE (21:20)
[2018-09-16] MEDS ORDERED: MAG HYDROX/AL HYDROX/SIMETH SUSP 30 ML UDCUP PO PRN (21:21)
[2018-09-16] MEDS ORDERED: MAGNESIUM OXIDE 400 MG TABLET PO SCH (21:30)
[2018-09-16] MEDS ORDERED: FOLIC ACID/VITAMIN B COMP W-C CAPSULE PO SCH (22:00)
[2018-09-16] MEDS: ACETAMINOPHEN 325 MG TABLET PO PRN (22:54)
[2018-09-16] MEDS: SODIUM BICARBONATE 650 MG TABLET PO SCH (22:54)
[2018-09-16] MEDS: ATORVASTATIN CALCIUM 20 MG TABLET PO SCH (22:55)
[2018-09-16] MEDS: ASPIRIN 81 MG TABLET, ENT COATED PO SCH (22:55)
[2018-09-16] MEDS: ISOSORBIDE MONONITRATE 20 MG TABLET PO SCH (22:55)
[2018-09-16] MEDS: HEPARIN SOD (PORCINE) 5,000 UNIT/ML 1 ML SYRINGE SUBCUT SCH (22:58)
[2018-09-16] MEDS: IPRATROPIUM/ALBUTEROL 0.5-2.5 MG/3 ML AMPUL NEB SCH (23:00)
[2018-09-17] MEDS ORDERED: NORMAL SALINE 500 ML IV ONE ×2 (00:45→02:00)
[2018-09-17] MEDS ORDERED: MAGNESIUM OXIDE 400 MG TABLET PO ONE (01:00)
[2018-09-17] MEDS ORDERED: FOLIC ACID/VITAMIN B COMP W-C CAPSULE PO ONE (01:00)
[2018-09-17] MEDS ORDERED: NA PHOS,M-B/NA PHOS,DI-BA (ADULT) 133 ML ENEMA PR ONE (01:00)
[2018-09-17] MEDS ORDERED: LACTULOSE SYRUP 20 GM/30 ML UDCUP PO ONE (01:00)
[2018-09-17] MEDS ORDERED: NORMAL SALINE 1000 ML 1,000 ML IV ONE (03:30)
[2018-09-17] MEDS: HEPARIN SOD (PORCINE) 5,000 UNIT/ML 1 ML SYRINGE SUBCUT SCH ×3 (05:29→21:09)
[2018-09-17] MEDS ORDERED: HYDROCORTISONE SOD SUCCINATE INJ/PF 100 MG/2 ML SDV IV ONE (05:41)
[2018-09-17] MEDS ORDERED: VANCOMYCIN HCL 0 MG in DEXTROSE 5%-WATER 250 ML IV NR (05:45)
[2018-09-17] MEDS ORDERED: LACTULOSE SYRUP 20 GM/30 ML UDCUP PR ONE (05:49)
[2018-09-17] MEDS ORDERED: ERTAPENEM SODIUM 0.5 GM in NORMAL SALINE 50 ML IV ONE ×2 (06:00→10:00)
[2018-09-17] MEDS ORDERED: GENTAMICIN SULFATE 100 MG in DEXTROSE 5%-WATER 100.0 ML IV ONE (06:00)
--- NOTE | 2018-09-17 06:00 | PDOC H&P ---
History of Present Illness Admission Date/PCP: 09/16/18 21:[facility] Patient complains of: Altered mental status History of Present Illness: TYLOR JIMENEZ is a 78 year old male with a past medical history of chronic kidney disease on hemodialysis Sunday, urostomy bag, congestive heart failure, coronary artery disease with peripheral vascular disease. Patient presents after 6 hours of fever and confusion following today's hemodialysis he is referred to the emergency room where he is found to have fever, leukocytosis, hypotension, pyuria and a CT abdomen pelvis suggestive of fecal impaction. He is placed on imipenem and vancomycin then referred to the hospitalist for admission. Patient is in no respiratory distress. Denying chest pain nausea or vomiting. Previous episodes of altered mental status have heralded urosepsis. Past Medical History Cardiac Medical History: Reports: Congestive Heart Failure, Coronary Artery Disease, Hyperlipidema, Hypertension, Peripheral Vascular Disease Pulmonary Medical History: Reports: Chronic Obstructive Pulmonary Disease (COPD) - Possible Neurological Medical History: Denies: Seizures Renal/ Medical History: Reports: End Stage Renal Disease - On hemodialysis Sunday and Sunday Malignancy Medical History: Reports: Renal (Kidney) Cancer - Bladder and prostate cancer Musculoskeltal Medical History: Reports: Gout Psychiatric Medical History: Denies: Depression Infectious Medical History: Reports: 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 Past Surgical History Past Surgical History: Reports: Cardiac Catheterization, Coronary Artery Bypass Graft, Orthopedic Surgery - Right hip hemiarthroplasty August 2016, Vascular Surgery - AAA repair, Other - Nephrostomy tube placement, creation of ileal conduit, prostatectomy Social History Information Source: Patient, Emergency Med Personnel, [facility] Records Lives with: Family Smoking Status: Unknown if Ever Smoked Frequency of Alcohol Use: Rare Hx Recreational Drug Use: No Drugs: None Hx Prescription Drug Abuse: No - Advance Directive Resuscitation Status: Full Code Family History Family History: Malignancy Parental Family History Reviewed: Yes Children Family History Reviewed: Yes Sibling(s) Family History Reviewed.: Yes Medication/Allergy Home Medications: Aspirin [Ecotrin 81 mg EC Tablet] 81 mg PO QHS 04/17/18 Atorvastatin Calcium [Lipitor 20 mg Tablet] 20 mg PO QHS 04/17/18 Calcium Carbonate [Tums Chewable 500 mg Tab.chew] 500 mg PO BID 04/17/18 Folic Acid/Vitamin B Comp W-C [Nephrocaps Multiple Vitamin Capsule] 1 cap PO QHS 04/17/18 Isosorbide Mononitrate [Ismo 20 mg Tablet] 20 mg PO Q12 04/17/18 Magnesium Oxide [Mag-Ox 400 mg Tablet] 400 mg PO DAILY 04/17/18 Multivit-Min/Folic/Vit K/Lycop [One-A-Day Men's 50 Plus Tablet] 1 each PO DAILY 04/17/18 Omeprazole 20 mg PO DAILY 04/17/18 Sodium Bicarbonate [Sodium Bicarbonate 650 mg Tablet] 650 mg PO Q12 04/17/18 Albuterol Sulfate [Ventolin 0.083% Neb 2.5 mg/3 ml Ampul] 1 vial NEB Q4 PRN 09/16/18 Cetirizine HCl [Zyrtec 10 mg Tablet] 10 mg PO DAILY 09/16/18 Allergies/Adverse Reactions: ciprofloxacin [From Cipro] Allergy (Verified 05/24/18 15:23) Review of Systems Constitutional: PRESENT: as per HPI, fatigue, fever(s). ABSENT: chills, headache(s), weight gain, weight loss Eyes: ABSENT: visual disturbances Ears: ABSENT: hearing changes Cardiovascular: ABSENT: chest pain, dyspnea on exertion, edema, orthropnea, palpitations Respiratory: ABSENT: cough, hemoptysis Gastrointestinal: PRESENT: constipation. ABSENT: abdominal pain, diarrhea, hematemesis, hematochezia, nausea, vomiting Genitourinary: ABSENT: dysuria, hematuria Musculoskeletal: ABSENT: joint swelling Integumentary: ABSENT: rash, wounds Neurological: ABSENT: abnormal gait, abnormal speech, confusion, dizziness, focal weakness, syncope Psychiatric: ABSENT: anxiety, depression, homidical ideation, suicidal ideation Endocrine: ABSENT: cold intolerance, heat intolerance, polydipsia, polyuria Hematologic/Lymphatic: ABSENT: easy bleeding, easy bruising Physical Exam Vital Signs: Temp Pulse Resp BP Pulse Ox 98.4 F 76 19 98/42 L 94 09/17/18 04:00 09/17/18 04:00 09/17/18 04:00 09/17/18 04:00 09/17/18 04:00 Intake & Output 09/15/18 09/16/18 09/17/18 11:59 11:59 11:59 Intake Total 2200 Output Total 350 Balance 1850 Weight 66.3 kg General appearance: PRESENT: cooperative, hard of hearing, mild distress, thin Head exam: PRESENT: atraumatic, normocephalic Eye exam: PRESENT: conjunctiva pink, EOMI, PERRLA. ABSENT: scleral icterus Ear exam: PRESENT: normal external ear exam Mouth exam: PRESENT: dry mucosa, neck supple, tongue midline Neck exam: ABSENT: carotid bruit, JVD, lymphadenopathy, thyromegaly Respiratory exam: PRESENT: clear to auscultation jenni, crackles, prolonged expiratory phas. ABSENT: rales, rhonchi, wheezes Cardiovascular exam: PRESENT: RRR. ABSENT: diastolic murmur, rubs, systolic murmur Pulses: PRESENT: normal dorsalis pedis pul Vascular exam: PRESENT: normal capillary refill GI/Abdominal exam: PRESENT: distended, hypoactive bowel sounds, normal bowel sounds, soft, tenderness - Left lower quadrant. ABSENT: guarding, mass, orga nolmegaly, rebound Rectal exam: ABSENT: tenderness Extremities exam: PRESENT: full ROM. ABSENT: calf tenderness, clubbing, pedal edema Neurological exam: PRESENT: alert, altered, awake, oriented to person, CN II-XII grossly intact. ABSENT: motor sensory deficit Psychiatric exam: PRESENT: appropriate affect, normal mood. 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 ABSENT: cyanosis, rash Results Laboratory Results: 09/16/18 15:30 09/16/18 15:30 09/16/18 09/16/18 09/16/18 15:30 15:30 16:10 WBC 12.1 H RBC 3.88 L Hgb 12.1 L Hct 35.8 L MCV 92 MCH 31.3 MCHC 33.9 RDW 14.4 H Plt Count 152 Seg Neutrophils % Not Reportable Lymphocytes % Not Reportable Monocytes % Not Reportable Eosinophils % Not Reportable Basophils % Not Reportable Absolute Neutrophils Not Reportable Absolute Lymphocytes Not Reportable Absolute Monocytes Not Reportable Absolute Eosinophils Not Reportable Absolute Basophils Not Reportable VBG pH VBG pCO2 VBG HCO3 VBG Base Excess Sodium 142.7 Potassium 5.0 Chloride 98 Carbon Dioxide 31 H Anion Gap 14 BUN 27 H Creatinine 2.98 H Est GFR ( Amer) 25 L Est GFR (Non-Af Amer) 21 L Glucose 130 H Lactic Acid Cancelled Calcium 8.8 Total Bilirubin 0.9 AST 51 ALT 12 L Alkaline Phosphatase 101 Total Protein 8.3 H Albumin 4.8 Urine Color Urine Appearance Urine pH Ur Specific [place] Urine Protein Urine Glucose (UA) Urine Ketones Urine Blood Urine Nitrite Ur Leukocyte Esterase Urine WBC (Auto) Urine RBC (Auto) 09/16/18 09/16/18 09/16/18 16:10 16:43 16:54 WBC RBC Hgb Hct MCV MCH MCHC RDW Plt Count Seg Neutrophils % Lymphocytes % Monocytes % Eosinophils % Basophils % Absolute Neutrophils Absolute Lymphocytes Absolute Monocytes Absolute Eosinophils Absolute Basophils VBG pH 7.39 VBG pCO2 50.3 VBG HCO3 29.9 VBG Base Excess 4.0 Sodium Potassium Chloride Carbon Dioxide Anion Gap BUN Creatinine Est GFR ( Amer) Est GFR (Non-Af Amer) Glucose Lactic Acid 3.1 H Calcium Total Bilirubin AST ALT Alkaline Phosphatase Total Protein Albumin Urine Color YELLOW Urine Appearance CLOUDY Urine pH 7.0 Ur Specific [place] 1.014 Urine Protein 30 H Urine Glucose (UA) NEGATIVE Urine Ketones NEGATIVE Urine Blood SMALL H Urine Nitrite NEGATIVE Ur Leukocyte Esterase LARGE H Urine WBC (Auto) 140 Urine RBC (Auto) 5 09/16/18 20:50 WBC RBC Hgb Hct MCV MCH MCHC RDW Plt Count Seg Neutrophils % Lymphocytes % Monocytes % Eosinophils % Basophils % Absolute Neutrophils Absolute Lymphocytes Absolute Monocytes Absolute Eosinophils Absolute Basophils VBG pH VBG pCO2 VBG HCO3 VBG Base Excess Sodium Potassium Chloride Carbon Dioxide Anion Gap BUN Creatinine Est GFR ( Amer) Est GFR (Non-Af Amer) Glucose Lactic Acid 2.7 H Calcium Total Bilirubin AST ALT Alkaline Phosphatase Total Protein Albumin Urine Color Urine Appearance Urine pH Ur Specific [place] Urine Protein Urine Glucose (UA) Urine Ketones Urine Blood Urine Nitrite Ur Leukocyte Esterase Urine WBC (Auto) Urine RBC (Auto) Impressions: Chest X-Ray 09/16/18 15:52 IMPRESSION: NO ACUTE RADIOGRAPHIC FINDING IN THE CHEST. Head CT 09/16/18 15:58 IMPRESSION: CHRONIC CHANGES OF ATROPHY AND MICROVASCULAR ISCHEMIA. NO ACUTE PROCESS. EVIDENCE OF ACUTE STROKE: NO. Abdomen/Pelvis CT 09/16/18 19:28 IMPRESSION: 5.4 cm abdominal aortic aneurysm, known. Recommend continued vascular consultation and follow-up every 6 months. Reference: J Vasc Surg 2009 Apr;50(4 Suppl):S2-49. Left paraesophageal hernia. Cardiomegaly. Moderate stool in the rectum. Renal atrophy bilaterally. Gallstone without other evidence of acute cholecystitis. Assessment & Plan - Diagnosis (1) Acute UTI (urinary tract infection) Is this a current diagnosis for this admission?: Yes Plan: Complicated by colonization of urostomy bag, telemetry admission empiric antibiotics of vancomycin and Invanz ordered, consider addition of gentamicin. Follow-up CBC blood and urine culture (2) Sepsis Qualifiers: Sepsis type: sepsis due to unspecified organism Qualified Code(s): A41.9 - Sepsis, unspecified organism Is this a current diagnosis for this admission?: Yes Plan: Secondary to #1, IV fluid challenge, pressors as needed (3) End stage renal disease Is this a current diagnosis for this admission?: Yes Plan: No evidence of acidosis, unstable hyperkalemia or volume overload. Nephrology consulted anticipate hemodialysis resumption on schedule (4) COPD (chronic obstructive pulmonary disease) Qualifiers: COPD type: unspecified COPD Qualified Code(s): J44.9 - Chronic obstructive pulmonary disease, unspecified Is this a current diagnosis for this admission?: Yes Plan: Incentive spirometry, albuterol and Atrovent (5) Fecal impaction Is this a current diagnosis for this admission?: Yes Plan: Trial Fleet enema, lactulose and digital disimpaction ordered. - Time Time Spent: 50 to 70 Minutes - Inpatient Certification Medical Necessity: Need Close Monitoring Due to Risk of Patient Decompensation
[2018-09-17] MEDS ORDERED: ERTAPENEM SODIUM INJ 1 GM VIAL IV PRN (06:03)
[2018-09-17] MEDS ORDERED: GENTAMICIN SULFATE INJ 80 MG/2 ML VIAL IV PRN (06:03)
[2018-09-17] MEDS ORDERED: LACTULOSE SYRUP 20 GM/30 ML UDCUP ONE (06:23)
[2018-09-17 08:04] LABS: ABSOLUTE LYMPHOCYTES (AUTO) 0.6 10^3/uL (0.5-4.7); ABSOLUTE MONOCYTES (AUTO) 0.5 10^3/uL (0.1-1.4); ABSOLUTE NEUT (AUTO) 5.1 10^3/uL (1.7-8.2); BASOPHILS % (AUTO) 0.5 % (0-2); EOSINOPHILS % (AUTO) 0.2 % (0-6); HEMATOCRIT 29.4 % (37.9-51.0); HEMOGLOBIN 10.2 g/dL (13.5-17.0); MEAN CORPUSCULAR HEMOGLOBIN 32.2 pg (27.0-33.4); MEAN CORPUSCULAR HGB CONC 34.9 g/dL (32.0-36.0); MEAN CORPUSCULAR VOLUME 92 fl (80-97); MONOCYTES % (AUTO) 8.2 % (3-13); PLATELET COUNT 116 10^3/uL (150-450); RED BLOOD COUNT 3.18 10^6/uL (4.35-5.55); RED CELL DISTRIBUTION WIDTH 14.3 % (11.5-14.0); SEGMENTED NEUTROPHILS % (AUTO) 82.1 % (42-78); TOTAL CELLS COUNTED % (AUTO) 100 %; WHITE BLOOD COUNT 6.2 10^3/uL (4.0-10.5)
[2018-09-17] MEDS: IPRATROPIUM/ALBUTEROL 0.5-2.5 MG/3 ML AMPUL NEB SCH ×3 (08:20→23:48)
[2018-09-17 08:36] LABS: ANION GAP 12 (5-19); BLOOD UREA NITROGEN 38 mg/dL (7-20); CALCIUM 7.3 mg/dL (8.4-10.2); CARBON DIOXIDE 26 mmol/L (22-30); CHLORIDE 103 mmol/L (98-107); GLUCOSE 104 mg/dL (75-110); POTASSIUM 4.3 mmol/L (3.6-5.0)
[2018-09-17] MEDS ORDERED: GENTAMICIN SULFATE 100 MG in DEXTROSE 5%-WATER 100 ML IV ONE (09:00)
[2018-09-17] MEDS: CALCIUM CARBONATE 500 MG TAB.CHEW PO SCH ×2 (09:19→17:34)
[2018-09-17] MEDS: MAGNESIUM OXIDE 400 MG TABLET PO SCH (09:19)
[2018-09-17] MEDS: SODIUM BICARBONATE 650 MG TABLET PO SCH ×2 (09:19→21:08)
[2018-09-17] MEDS: LANSOPRAZOLE 15 MG TAB.RAP.DR PO SCH (09:19)
[2018-09-17] MEDS: CETIRIZINE 10 MG TABLET PO SCH (09:19)
[2018-09-17] MEDS: ISOSORBIDE MONONITRATE 20 MG TABLET PO SCH ×2 (09:21→21:09)
--- NOTE | 2018-09-17 16:57 | PDOC TRANSFER SUMMARY ---
General Admission Date/PCP: 09/16/18 21:35 [facility] Admission Date: 09/12/18 Transfer Date: 09/17/18 Accepting Facility: [facility] Accepting Physician: Dr. Kash Abraham Resuscitation Status: Full Code - Transfer Diagnosis (1) Sepsis Is this a current diagnosis for this admission?: Yes (2) Acute UTI (urinary tract infection) Is this a current diagnosis for this admission?: Yes (3) End stage renal disease Is this a current diagnosis for this admission?: Yes (4) COPD (chronic obstructive pulmonary disease) Is this a current diagnosis for this admission?: Yes (5) Fecal impaction Is this a current diagnosis for this admission?: Yes - Transfer Medications Home Medications: RX: Aspirin [Ecotrin 81 mg EC Tablet] 81 mg PO QHS 04/17/18 RX: Atorvastatin Calcium [Lipitor 20 mg Tablet] 20 mg PO QHS 04/17/18 RX: Calcium Carbonate [Tums Chewable 500 mg Tab.chew] 500 mg PO BID 04/17/18 RX: Folic Acid/Vitamin B Comp W-C [Nephrocaps Multiple Vitamin Capsule] 1 cap PO QHS 04/17/18 RX: Isosorbide Mononitrate [Ismo 20 mg Tablet] 20 mg PO Q12 04/17/18 RX: Magnesium Oxide [Mag-Ox 400 mg Tablet] 400 mg PO DAILY 04/17/18 RX: Multivit-Min/Folic/Vit K/Lycop [One-A-Day Men's 50 Plus Tablet] 1 each PO DAILY 04/17/18 RX: Omeprazole 20 mg PO DAILY 04/17/18 RX: Sodium Bicarbonate [Sodium Bicarbonate 650 mg Tablet] 650 mg PO Q12 04/17/18 Albuterol Sulfate [Ventolin 0.083% Neb 2.5 mg/3 ml Ampul] 1 vial NEB Q4 PRN 09/16/18 Cetirizine HCl [Zyrtec 10 mg Tablet] 10 mg PO DAILY 09/16/18 Transfer Medications: Current Medications Acetaminophen (Tylenol 325 Mg Tablet) 650 mg PO Q4HP PRN PRN Reason: FOR PAIN OR TEMP Stop: 10/16/18 21:20 Last Admin: 09/16/18 22:54 Dose: 650 mg Documented by: Al Hydrox/Mg Hydrox/Simethicone (Maalox Plus Susp 30 Udcup) 30 ml PO Q6HP PRN PRN Reason: HEARTBURN Stop: 10/16/18 21:20 Albuterol/Ipratropium (Duoneb 3 Ml Ampul) 3 ml NEB RTQ8 AJ Stop: 10/17/18 00:00 Last Admin: 09/17/18 08:20 Dose: 3 ml Documented by: Aspirin (Ecotrin 81 Mg Ec Tablet) 81 mg PO QHS AJ Stop: 10/16/18 21:59 Last Admin: 09/16/18 22:55 Dose: 81 mg Documented by: Atorvastatin Calcium (Lipitor 20 Mg Tablet) 20 mg PO QHS AJ Stop: 10/16/18 21:59 Last Admin: 09/16/18 22:55 Dose: 20 mg Documented by: Calcium Carbonate (Tums Chewable 500 Mg Tab.Chew) 500 mg PO BID AJ Stop: 10/17/18 09:59 Last Admin: 09/17/18 09:19 Dose: 500 mg Documented by: Cetirizine HCl (Zyrtec 10 Mg Tablet) 10 mg PO DAILY AJ Stop: 10/17/18 09:59 Last Admin: 09/17/18 09:19 Dose: 10 mg Documented by: Heparin Sodium (Porcine) (Heparin Inj 5,000 Units/Ml 1 Ml Syringe) 5,000 unit SUBCUT Q8 AJ Stop: 10/16/18 21:59 Last Admin: 09/17/18 13:46 Dose: 5,000 unit Documented by: Ertapenem 0.5 gm/ Sodium (Chloride) 50 mls @ 100 mls/hr IV QAM AJ Stop: 09/25/18 07:59 Vancomycin HCl 750 mg/ (Dextrose) 250 mls @ 166.667 mls/hr IV PDIA [facility] Stop: 09/25/18 17:59 Isosorbide Mononitrate (Ismo 20 Mg Tablet) 20 mg PO Q12 AJ Stop: 10/16/18 21:59 Last Admin: 09/17/18 09:21 Dose: 20 mg Documented by: Lansoprazole (Prevacid 15 Mg Odt Tablet) 15 mg PO DAILY AJ Stop: 10/17/18 09:59 Last Admin: 09/17/18 09:19 Dose: 15 mg Documented by: Magnesium Oxide (Mag-Ox 400 Mg Tablet) 400 mg PO DAILY AJ Stop: 10/17/18 09:59 Last Admin: 09/17/18 09:19 Dose: 400 mg Documented by: Multivit/Ca Carb/B Cmplx/FA/Prenat (Nephrocaps Multiple Vitamin Capsule) 1 cap PO QHS AJ Stop: 10/17/18 21:59 Sodium Bicarbonate (Sodium Bicarbonate 650 Mg Tablet) 650 mg PO Q12 AJ Stop: 10/16/18 21:59 Last Admin: 09/17/18 09:19 Dose: 650 mg Documented by: - Allergies Allergies/Adverse Reactions: ciprofloxacin [From Cipro] Allergy (Verified 05/24/18 15:23) Hospital Course Hospital Course: H&P: TYLOR JIMENEZ is a 78 year old male with a past medical history of chronic kidney disease on hemodialysis Sunday, urostomy bag, congestive heart failure, coronary artery disease with peripheral vascular disease. Patient presents after 6 hours of fever and confusion following today's hemodialysis he is referred to the emergency room where he is found to have fever, leukocytosis, hypotension, pyuria and a CT abdomen pelvis suggestive of fecal impaction. He is placed on imipenem and vancomycin then referred to the hospitalist for admission. Patient is in no respiratory distress. Denying chest pain nausea or vomiting. Previous episodes of altered mental status have heralded urosepsis. Hospital Course: The patient was treated with Invanz, vancomycin and gentamycin for his complicated UTI. Urine cultures are still pending. Digitally disimpacted overnight and received enemas, he started moving his bowels within 8 hours of admission. Advanced to a cardiac diet. The patient normally receives HD MWF, unfortunately [facility] does not have any availability for additional HD patients (due to hospital census). This patient requires transfer to a facility that offers HD. Dr. Abraham of [facility] has graciously accepted this patient. Physical Exam Vital Signs: Temp Pulse Resp BP Pulse Ox 98.7 F 82 20 109/47 L 98 09/17/18 11:43 09/17/18 11:43 09/17/18 11:43 09/17/18 11:43 09/17/18 11:43 Intake & Output 09/16/18 09/17/18 09/18/18 06:59 06:59 06:59 Intake Total 2200 268 Output Total 350 60 Balance 1850 208 Weight 66.3 kg 66.3 kg Results Laboratory Results: 09/17/18 07:35 09/17/18 07:35 09/16/18 09/16/18 09/16/18 15:30 15:30 16:10 WBC 12.1 H RBC 3.88 L Hgb 12.1 L Hct 35.8 L MCV 92 MCH 31.3 MCHC 33.9 RDW 14.4 H Plt Count 152 Seg Neutrophils % Not Reportable Lymphocytes % Not Reportable Monocytes % Not Reportable Eosinophils % Not Reportable Basophils % Not Reportable Absolute Neutrophils Not Reportable Absolute Lymphocytes Not Reportable Absolute Monocytes Not Reportable Absolute Eosinophils Not Reportable Absolute Basophils Not Reportable VBG pH VBG pCO2 VBG HCO3 VBG Base Excess Sodium 142.7 Potassium 5.0 Chloride 98 Carbon Dioxide 31 H Anion Gap 14 BUN 27 H Creatinine 2.98 H Est GFR ( Amer) 25 L Est GFR (Non-Af Amer) 21 L Glucose 130 H Lactic Acid Cancelled Calcium 8.8 Total Bilirubin 0.9 AST 51 ALT 12 L Alkaline Phosphatase 101 Total Protein 8.3 H Albumin 4.8 Urine Color Urine Appearance Urine pH Ur Specific [place] Urine Protein Urine Glucose (UA) Urine Ketones Urine Blood Urine Nitrite Ur Leukocyte Esterase Urine WBC (Auto) Urine RBC (Auto) 09/16/18 09/16/18 09/16/18 16:10 16:43 16:54 WBC RBC Hgb Hct MCV MCH MCHC RDW Plt Count Seg Neutrophils % Lymphocytes % Monocytes % Eosinophils % Basophils % Absolute Neutrophils Absolute Lymphocytes Absolute Monocytes Absolute Eosinophils Absolute Basophils VBG pH 7.39 VBG pCO2 50.3 VBG HCO3 29.9 VBG Base Excess 4.0 Sodium Potassium Chloride Carbon Dioxide Anion Gap BUN Creatinine Est GFR ( Amer) Est GFR (Non-Af Amer) Glucose Lactic Acid 3.1 H Calcium Total Bilirubin AST ALT Alkaline Phosphatase Total Protein Albumin Urine Color YELLOW Urine Appearance CLOUDY Urine pH 7.0 Ur Specific [place] 1.014 Urine Protein 30 H Urine Glucose (UA) NEGATIVE Urine Ketones NEGATIVE Urine Blood SMALL H Urine Nitrite NEGATIVE Ur Leukocyte Esterase LARGE H Urine WBC (Auto) 140 Urine RBC (Auto) 5 09/16/18 09/17/18 09/17/18 20:50 07:35 07:35 WBC 6.2 RBC 3.18 L Hgb 10.2 L Hct 29.4 L MCV 92 MCH 32.2 MCHC 34.9 RDW 14.3 H Plt Count 116 L Seg Neutrophils % 82.1 H Lymphocytes % 9.0 L Monocytes % 8.2 Eosinophils % 0.2 Basophils % 0.5 Absolute Neutrophils 5.1 Absolute Lymphocytes 0.6 Absolute Monocytes 0.5 Absolute Eosinophils 0.0 Absolute Basophils 0.0 VBG pH VBG pCO2 VBG HCO3 VBG Base Excess Sodium 141.0 Potassium 4.3 Chloride 103 Carbon Dioxide 26 Anion Gap 12 BUN 38 H Creatinine 4.08 H Est GFR ( Amer) 17 L Est GFR (Non-Af Amer) 14 L Glucose 104 Lactic Acid 2.7 H Calcium 7.3 L Total Bilirubin AST ALT Alkaline Phosphatase Total Protein Albumin Urine Color Urine Appearance Urine pH Ur Specific [place] Urine Protein Urine Glucose (UA) Urine Ketones Urine Blood Urine Nitrite Ur Leukocyte Esterase Urine WBC (Auto) Urine RBC (Auto) Impressions: Chest X-Ray 09/16/18 15:52 IMPRESSION: NO ACUTE RADIOGRAPHIC FINDING IN THE CHEST. Head CT 09/16/18 15:58 IMPRESSION: CHRONIC CHANGES OF ATROPHY AND MICROVASCULAR ISCHEMIA. NO ACUTE PROCESS. EVIDENCE OF ACUTE STROKE: NO. Abdomen/Pelvis CT 09/16/18 19:28 IMPRESSION: 5.4 cm abdominal aortic aneurysm, known. Recommend continued vascular consultation and follow-up every 6 months. Reference: J Vasc Surg 2009 Oct;50(4 Suppl):S2-49. Left paraesophageal hernia. Cardiomegaly. Moderate stool in the rectum. Renal atrophy bilaterally. Gallstone without other evidence of acute cholecystitis.
--- NOTE | 2018-09-17 17:25 | PDOC CONSULTATION ---
Consultation Consult Date: 09/17/18 Consult reason:: Hemodialysis in the face of urosepsis. History of Present Illness Admission Date/PCP: 09/16/18 21:35 [facility] History of Present Illness: TYLOR JIMENEZ is a 78 year old male with a past medical history of ESRD on hemodialysis Sunday, urostomy bag, congestive heart failure, coronary artery disease with peripheral vascular disease. Patient presented after 6 hours of fever and confusion following yesterday's hemodialysis. Evaluations done in the emergency room where he is found to have fever, leukocytosis, hypotension, pyuria and a CT abdomen pelvis suggestive of fecal impaction. Patient was discussed by the ER physician with me over the phone. I told the ER physician that we do not have any more capabilities of admitting any more dialysis patients as we had reached the limits of our dialysis capabilities in this hospital and therefore he should be transferred. However later on I come to realize the patient was admitted to the hospitalist. Today when I see the patient, he is confused and disoriented. He does not know who I am and does not know where he is or the time of the day or the month or the year. Denies any specific complaints of an abdominal pains, chest pain or shortness of breath. Labs and medications were reviewed. I did talk with the hospitalist and express the fact that I will be unable to do dialysis on this patient tomorrow as we do not have any more dialysis capabilities as we are maxed out and the patient should be transferred out. Past Medical History Cardiac Medical History: Reports: Coronary Artery Disease, Hyperlipidemia, Hypertension-primary, Peripheral Vascular Disease Pulmonary Medical History: Reports: Chronic Obstructive Pulmonary Disease (COPD) - Possible Neurological Medical History: Denies: Seizures Renal/ Medical History: Reports: End Stage Renal Disease - On hemodialysis Sunday and Sunday, Hyperphosphatemia, Metabolic Acidosis, Recurrent UTI, Secondary Hyperparathyroidism Malignancy Medical History: Reports: Renal (Kidney) Cancer - Bladder and prostate cancer Musculoskeltal Medical History: Reports: Gout Psychiatric Medical History: Denies: Depression Infectious Medical History: Reports: 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 Hematology Medical History: Reports Anemia of Chronic Kidney Disease Past Surgical History Past Surgical History: Reports: Cardiac Catheterization, Coronary Artery Bypass Graft, Cystectomy - With urostomy bag in the right lower quadrant, Dialysis Access Surgery AVF, Orthopedic Surgery - Right hip hemiarthroplasty August 2016, Vascular Surgery - AAA repair, Other - Nephrostomy tube placement, creation of ileal conduit, prostatectomy Social History Lives with: Family Smoking Status: Unknown if Ever Smoked Frequency of Alcohol Use: Rare Hx Recreational Drug Use: No Drugs: None Hx Prescription Drug Abuse: No - Advance Directive Resuscitation Status: Full Code Family History Parental Family History Reviewed: No Children Family History Reviewed: No Sibling(s) Family History Reviewed.: No Medication/Allergy Home Medications: Atorvastatin Calcium [Lipitor 20 mg Tablet] 20 mg PO QHS 04/17/18 Calcium Carbonate [Tums Chewable 500 mg Tab.chew] 500 mg PO BID 04/17/18 Folic Acid/Vitamin B Comp W-C [Nephrocaps Multiple Vitamin Capsule] 1 cap PO QHS 04/17/18 Isosorbide Mononitrate [Ismo 20 mg Tablet] 20 mg PO Q12 04/17/18 Magnesium Oxide [Mag-Ox 400 mg Tablet] 400 mg PO DAILY 04/17/18 Multivit-Min/Folic/Vit K/Lycop [One-A-Day Men's 50 Plus Tablet] 1 each PO DAILY 04/17/18 Omeprazole 20 mg PO DAILY 04/17/18 Sodium Bicarbonate [Sodium Bicarbonate 650 mg Tablet] 650 mg PO Q12 04/17/18 Albuterol Sulfate [Ventolin 0.083% Neb 2.5 mg/3 mL Ampul] 1 vial NEB Q4 PRN 09/16/18 Cetirizine HCl [Zyrtec 10 mg Tablet] 10 mg PO DAILY 09/16/18 Acetaminophen [Tylenol 325 mg Tablet] 650 mg PO Q4HP PRN tablet 09/17/18 Aspirin [Ecotrin 81 mg EC Tablet] 81 mg PO QHS tabec 09/17/18 Ertapenem Sodium [Invanz Inj 1 gm Vial] 0.5 gm IV QAM vial 09/17/18 Heparin Sodium,Porcine [Heparin Inj 5,000 Units/ml 1 ml Syringe] 5,000 unit SUBCUT Q8 syringe 09/17/18 Ipratropium/Albuterol Sulfate [Duoneb 3 ml Ampul] 3 ml NEB RTQ8 vial.neb 09/17/18 Mag Hydrox/Al Hydrox/Simeth [Maalox Plus Susp 30 Udcup] 30 ml PO Q6HP PRN udc 09/17/18 Vancomycin HCl [Vancocin Inj 1000 mg Vial] 750 mg IV PDIA vial 09/17/18 Allergies/Adverse Reactions: ciprofloxacin [From Cipro] Allergy (Verified 05/24/18 15:23) Review of Systems ROS unobtainable: Due to mental status Physical Exam Vital Signs: Temp Pulse Resp BP Pulse Ox 99.2 F 80 16 100/48 L 96 09/17/18 15:55 09/17/18 16:31 09/17/18 16:31 09/17/18 15:55 09/17/18 16:31 Intake & Output 09/16/18 09/17/18 09/18/18 06:59 06:59 06:59 Intake Total 2200 268 Output Total 350 60 Balance 1850 208 Weight 66.3 kg 66.3 kg General appearance: PRESENT: no acute distress Eye exam: PRESENT: conjunctiva pink, EOMI, PERRLA Ear exam: PRESENT: normal external ear exam Mouth exam: PRESENT: moist, neck supple Neck exam: ABSENT: lymphadenopathy, meningismus, tenderness, thyromegaly, tracheal deviation Respiratory exam: PRESENT: clear to auscultation jenni, decreased breath sounds. ABSENT: crackles Cardiovascular exam: PRESENT: +S1, +S2, systolic murmur GI/Abdominal exam: PRESENT: normal bowel sounds, soft. ABSENT: organomegaly, tenderness Extremities exam: ABSENT: pedal edema Neurological exam: PRESENT: altered Skin exam: ABSENT: erythema, mottled, rash Results Laboratory Results: 09/17/18 07:35 09/17/18 07:35 09/16/18 09/16/18 09/17/18 16:54 20:50 07:35 WBC 6.2 RBC 3.18 L Hgb 10.2 L Hct 29.4 L MCV 92 MCH 32.2 MCHC 34.9 RDW 14.3 H Plt Count 116 L Seg Neutrophils % 82.1 H Lymphocytes % 9.0 L Monocytes % 8.2 Eosinophils % 0.2 Basophils % 0.5 Absolute Neutrophils 5.1 Absolute Lymphocytes 0.6 Absolute Monocytes 0.5 Absolute Eosinophils 0.0 Absolute Basophils 0.0 Sodium Potassium Chloride Carbon Dioxide Anion Gap BUN Creatinine Est GFR ( Amer) Est GFR (Non-Af Amer) Glucose Lactic Acid 2.7 H Calcium Urine Color YELLOW Urine Appearance CLOUDY Urine pH 7.0 Ur Specific [place] 1.014 Urine Protein 30 H Urine Glucose (UA) NEGATIVE Urine Ketones NEGATIVE Urine Blood SMALL H Urine Nitrite NEGATIVE Ur Leukocyte Esterase LARGE H Urine WBC (Auto) 140 Urine RBC (Auto) 5 09/17/18 07:35 WBC RBC Hgb Hct MCV MCH MCHC RDW Plt Count Seg Neutrophils % Lymphocytes % Monocytes % Eosinophils % Basophils % Absolute Neutrophils Absolute Lymphocytes Absolute Monocytes Absolute Eosinophils Absolute Basophils Sodium 141.0 Potassium 4.3 Chloride 103 Carbon Dioxide 26 Anion Gap 12 BUN 38 H Creatinine 4.08 H Est GFR ( Amer) 17 L Est GFR (Non-Af Amer) 14 L Glucose 104 Lactic Acid Calcium 7.3 L Urine Color Urine Appearance Urine pH Ur Specific [place] Urine Protein Urine Glucose (UA) Urine Ketones Urine Blood Urine Nitrite Ur Leukocyte Esterase Urine WBC (Auto) Urine RBC (Auto) Impressions: Chest X-Ray 09/16/18 15:52 IMPRESSION: NO ACUTE RADIOGRAPHIC FINDING IN THE CHEST. Head CT 09/16/18 15:58 IMPRESSION: CHRONIC CHANGES OF ATROPHY AND MICROVASCULAR ISCHEMIA. NO ACUTE PROCESS. EVIDENCE OF ACUTE STROKE: NO. Abdomen/Pelvis CT 09/16/18 19:28 IMPRESSION: 5.4 cm abdominal aortic aneurysm, known. Recommend continued vascular consultation and follow-up every 6 months. Reference: J Vasc Surg 2009 Oct;50(4 Suppl):S2-49. Left paraesophageal hernia. Cardiomegaly. Moderate stool in the rectum. Renal atrophy bilaterally. Gallstone without other evidence of acute cholecystitis. Assessment & Plan - Diagnosis (1) Acute UTI (urinary tract infection) Is this a current diagnosis for this admission?: Yes Plan: As evidenced by his clinical presentation and urine analysis followed by urine cultures which are now growing gram-negative rods.Currently on antibiotics awaiting antibiotic identification and responsiveness. (2) Sepsis Qualifiers: Sepsis type: sepsis due to unspecified organism Qualified Code(s): A41.9 - Sepsis, unspecified organism Is this a current diagnosis for this admission?: Yes Plan: Patient initially came in hypotensive with clinical features suggestive of septic shock. Now patient is more stable on the floor. Patient on IV antibiotics and seems to be clinically better. (3) Acute encephalopathy Plan: Secondary to sepsis. Do not see any differential diagnosis for other etiology at the moment. (4) End-stage renal disease on hemodialysis Plan: Patient was dialyzed yesterday. Electrolites are stable. No signs of fluid overload. Plan for dialysis tomorrow but patient awaiting transfer to a tertiary center as we reached our maximal capacity for dialysis patients here in this hospital. (5) Fecal impaction Is this a current diagnosis for this admission?: Yes Plan: Treat with laxatives. But please not use any fleets enema for obvious reasons.
[2018-09-17] MEDS: FOLIC ACID/VITAMIN B COMP W-C CAPSULE PO SCH (21:08)
[2018-09-17] MEDS: ATORVASTATIN CALCIUM 20 MG TABLET PO SCH (21:09)
[2018-09-17] MEDS: ASPIRIN 81 MG TABLET, ENT COATED PO SCH (21:09)
[2018-09-18] MEDS: ACETAMINOPHEN 325 MG TABLET PO PRN (01:27)
[2018-09-18] MEDS: HEPARIN SOD (PORCINE) 5,000 UNIT/ML 1 ML SYRINGE SUBCUT SCH ×3 (05:31→21:04)
[2018-09-18] MEDS: ERTAPENEM SODIUM 0.5 GM in NORMAL SALINE 50 ML IV SCH (07:27)
[2018-09-18] MEDS: IPRATROPIUM/ALBUTEROL 0.5-2.5 MG/3 ML AMPUL NEB SCH ×2 (08:49→16:20)
[2018-09-18] MEDS: CETIRIZINE 10 MG TABLET PO SCH (09:07)
[2018-09-18] MEDS: ISOSORBIDE MONONITRATE 20 MG TABLET PO SCH ×2 (09:07→21:16)
[2018-09-18] MEDS: MAGNESIUM OXIDE 400 MG TABLET PO SCH (09:07)
[2018-09-18] MEDS: LANSOPRAZOLE 15 MG TAB.RAP.DR PO SCH (09:07)
[2018-09-18] MEDS: SODIUM BICARBONATE 650 MG TABLET PO SCH ×2 (09:07→21:16)
[2018-09-18] MEDS: CALCIUM CARBONATE 500 MG TAB.CHEW PO SCH ×2 (09:07→17:48)
[2018-09-18 11:56] LABS: HEMATOCRIT 28.3 % (37.9-51.0); MEAN CORPUSCULAR HEMOGLOBIN 32.2 pg (27.0-33.4); MEAN CORPUSCULAR HGB CONC 35.1 g/dL (32.0-36.0); MEAN CORPUSCULAR VOLUME 92 fl (80-97); PLATELET COUNT 111 10^3/uL (150-450); RED BLOOD COUNT 3.09 10^6/uL (4.35-5.55); RED CELL DISTRIBUTION WIDTH 14.2 % (11.5-14.0); WHITE BLOOD COUNT 4.9 10^3/uL (4.0-10.5)
[2018-09-18 12:09] LABS: ALANINE AMINOTRANSFERASE 22 U/L (21-72); ALBUMIN 3.3 g/dL (3.5-5.0); ALKALINE PHOSPHATASE 66 U/L (38-126); ANION GAP 10 (5-19); ASPARTATE AMINO TRANSFERASE 32 U/L (17-59); BILIRUBIN,DIRECT 0.3 mg/dL (0.0-0.4); BILIRUBIN,TOTAL 0.3 mg/dL (0.2-1.3); BLOOD UREA NITROGEN 52 mg/dL (7-20); CARBON DIOXIDE 28 mmol/L (22-30); CHLORIDE 103 mmol/L (98-107); GLUCOSE 105 mg/dL (75-110); POTASSIUM 4.2 mmol/L (3.6-5.0); SODIUM 141.4 mmol/L (137-145); TOTAL PROTEIN 5.8 g/dL (6.3-8.2)
[2018-09-18] MEDS ORDERED: VANCOMYCIN HCL 750 MG in DEXTROSE 5%-WATER 250 ML IV SCH (18:00)
--- NOTE | 2018-09-18 20:22 | PDOC PROGRESS REPORT ---
Subjective Progress Note for:: 09/18/18 Reason For Visit: Patient seen today undergoing dialysis. He is comfortable awake alert and responsive. He is not disoriented and confused like he was yesterday. However that said he is still not back to his baseline as he is unable to tell me the month or the year. He denies any history of chest pain or shortness of breath. No complaints of an abdominal pains, fever or chills. Labs and medications were reviewed. He has been eating whole lot better today than the last few days. Dialysis orders were reviewed with the treating dialysis nurse Sheila.His urostomy still working and there is no hematuria. Physical Exam Vital Signs: Temp Pulse Resp BP Pulse Ox 98.3 F 91 20 115/56 L 98 09/18/18 17:03 09/18/18 17:03 09/18/18 17:03 09/18/18 17:03 09/18/18 17:03 Intake & Output 09/17/18 09/18/18 09/19/18 06:59 06:59 06:59 Intake Total 2200 578 453 Output Total 074 711 2349 Balance 1850 98 -547 Weight 66.3 kg 66.5 kg General appearance: PRESENT: no acute distress Respiratory exam: PRESENT: clear to auscultation jenni, decreased breath sounds. ABSENT: crackles Cardiovascular exam: PRESENT: +S1, +S2, systolic murmur GI/Abdominal exam: PRESENT: normal bowel sounds, soft. ABSENT: organomegaly, tenderness Extremities exam: ABSENT: pedal edema Neurological exam: PRESENT: alert, awake, oriented to person. ABSENT: oriented to place, oriented to time Skin exam: ABSENT: cyanosis, erythema, mottled, rash Results Laboratory Results: 09/18/18 11:30 09/18/18 11:30 09/18/18 09/18/18 09/18/18 11:30 11:30 11:30 WBC 4.9 RBC 3.09 L Hgb 10.0 L Hct 28.3 L MCV 92 MCH 32.2 MCHC 35.1 RDW 14.2 H Plt Count 111 L Sodium 141.4 Potassium 4.2 Chloride 103 Carbon Dioxide 28 Anion Gap 10 BUN 52 H Creatinine 5.18 H Est GFR ( Amer) 13 L Est GFR (Non-Af Amer) 11 L Glucose 105 Calcium 8.0 L Magnesium 2.4 H Total Bilirubin 0.3 AST 32 ALT 22 Alkaline Phosphatase 66 Total Protein 5.8 L Albumin 3.3 L 09/18/18 11:30 NT-Pro-B Natriuret Pep 8870 H Impressions: Chest X-Ray 09/16/18 15:52 IMPRESSION: NO ACUTE RADIOGRAPHIC FINDING IN THE CHEST. Head CT 09/16/18 15:58 IMPRESSION: CHRONIC CHANGES OF ATROPHY AND MICROVASCULAR ISCHEMIA. NO ACUTE PROCESS. EVIDENCE OF ACUTE STROKE: NO. Abdomen/Pelvis CT 09/16/18 19:28 IMPRESSION: 5.4 cm abdominal aortic aneurysm, known. Recommend continued vascular consultation and follow-up every 6 months. Reference: J Vasc Surg 2009 Apr;50(4 Suppl):S2-49. Left paraesophageal hernia. Cardiomegaly. Moderate stool in the rectum. Renal atrophy bilaterally. Gallstone without other evidence of acute cholecystitis. Assessment & Plan - Diagnosis (1) Acute UTI (urinary tract infection) Is this a current diagnosis for this admission?: Yes Plan: Patient currently on IV antibiotics pending cultures and seems to responded very well as seen by the medical response, improved white count and hemodynamic stability.I would continue on IV antibiotics till we get the cultures and I would like to continue the IV antibiotics if possible as an outpatient post dialysis at [facility]. (2) Sepsis Qualifiers: Sepsis type: sepsis due to unspecified organism Qualified Code(s): A41.9 - Sepsis, unspecified organism Is this a current diagnosis for this admission?: Yes Plan: Markedly improved as seen by the clinical response and lab and hemodynamic stability. Continue on IV antibiotics pending cultures. (3) Acute encephalopathy Plan: Improving. (4) End-stage renal disease on hemodialysis Plan: Patient currently undergoing dialysis without any issues. He is mental status is improved though he still has some ways to go. Vital signs are stable. Dialysis is being supervised to ensure safe and smooth procedure.Labs and medications reviewed. Dialysis orders were reviewed with the treating dialysis nurse. (5) Fecal impaction Is this a current diagnosis for this admission?: Yes Plan: I have ordered soapsuds enema and follow that with laxatives.
[2018-09-18] MEDS: FOLIC ACID/VITAMIN B COMP W-C CAPSULE PO SCH (21:16)
[2018-09-18] MEDS: ATORVASTATIN CALCIUM 20 MG TABLET PO SCH (21:16)
[2018-09-18] MEDS: ASPIRIN 81 MG TABLET, ENT COATED PO SCH (21:16)
--- NOTE | 2018-09-18 22:30 | PDOC PROGRESS REPORT ---
Subjective Progress Note for:: 09/18/18 Subjective:: 78 y.o. M with ESRD (MWF), hx of bladder/prostate cancer, admitted to [facility] for sepsis and a UTI. Patient seen this morning on rounds. He is awake an oriented, in good spirits. Answers all questions appropriately. Urine in urostomy bag is clear and yellow. Lungs clear to auscultation. S1S2. Nursing staff denies any concerns for the patient. Currently treated UTI with Invanz, gentamycin and vancomycin. Waiting on C&S from urine culture. Patient currently waiting to be transferred to tertiary facility in order to receive hemodialysis, but was able to receive HD today at [facility]. Transfer on hold. Will re-evaluate tomorrow. Reason For Visit: ENCEPHALOPATHY UTI ESRD Physical Exam Vital Signs: Temp Pulse Resp BP Pulse Ox 98.2 F 83 19 120/55 L 98 09/18/18 19:32 09/18/18 19:32 09/18/18 19:32 09/18/18 19:32 09/18/18 19:32 Intake & Output 09/17/18 09/18/18 09/19/18 06:59 06:59 06:59 Intake Total 2200 578 703 Output Total 882 310 5112 Balance 1850 98 -297 Weight 66.3 kg 66.5 kg General appearance: PRESENT: no acute distress, well-developed, well-nourished Eye exam: PRESENT: conjunctiva pink, PERRLA Mouth exam: PRESENT: moist, tongue midline Teeth exam: PRESENT: poor dentation Neck exam: PRESENT: full ROM Respiratory exam: PRESENT: clear to auscultation jenni, symmetrical, unlabored Cardiovascular exam: PRESENT: RRR Pulses: PRESENT: normal radial pulses, +1 pedal pulses bilateral Vascular exam: PRESENT: normal capillary refill GI/Abdominal exam: PRESENT: soft. ABSENT: distended, tenderness Rectal exam: PRESENT: deferred Gentrourinary exam: PRESENT: other - UROSTOMY BAG Extremities exam: PRESENT: full ROM Musculoskeletal exam: PRESENT: ambulatory, full ROM, normal inspection Neurological exam: PRESENT: alert, awake, oriented to person, oriented to place, oriented to time, oriented to situation Skin exam: PRESENT: dry, intact, normal color Results Laboratory Results: 09/18/18 11:30 09/18/18 11:30 09/18/18 09/18/18 09/18/18 11:30 11:30 11:30 WBC 4.9 RBC 3.09 L Hgb 10.0 L Hct 28.3 L MCV 92 MCH 32.2 MCHC 35.1 RDW 14.2 H Plt Count 111 L Sodium 141.4 Potassium 4.2 Chloride 103 Carbon Dioxide 28 Anion Gap 10 BUN 52 H Creatinine 5.18 H Est GFR ( Amer) 13 L Est GFR (Non-Af Amer) 11 L Glucose 105 Calcium 8.0 L Magnesium 2.4 H Total Bilirubin 0.3 AST 32 ALT 22 Alkaline Phosphatase 66 Total Protein 5.8 L Albumin 3.3 L 09/18/18 11:30 NT-Pro-B Natriuret Pep 8870 H Impressions: Chest X-Ray 09/16/18 15:52 IMPRESSION: NO ACUTE RADIOGRAPHIC FINDING IN THE CHEST. Head CT 09/16/18 15:58 IMPRESSION: CHRONIC CHANGES OF ATROPHY AND MICROVASCULAR ISCHEMIA. NO ACUTE PROCESS. EVIDENCE OF ACUTE STROKE: NO. Abdomen/Pelvis CT 09/16/18 19:28 IMPRESSION: 5.4 cm abdominal aortic aneurysm, known. Recommend continued vascular consultation and follow-up every 6 months. Reference: J Vasc Surg 2009 Oct;50(4 Suppl):S2-49. Left paraesophageal hernia. Cardiomegaly. Moderate stool in the rectum. Renal atrophy bilaterally. Gallstone without other evidence of acute cholecystitis. Status: Imported from PACS Assessment & Plan - Diagnosis (1) Sepsis Qualifiers: Sepsis type: sepsis due to unspecified organism Qualified Code(s): A41.9 - Sepsis, unspecified organism Is this a current diagnosis for this admission?: Yes Plan: Resolved. Patient is afebrile, withouth leukocytosis and is alert and oriented. As evidence by leukocytosis (WBC 12.9), fever (TMAX 102.3), altered mental status, lactate (3.1) Secondary to complicated UTI - long-term urostomy, likely with a great deal of colonization Empirically treated with Invanz, gentamycin and vancomycin Awaiting urine C&S (2) Acute UTI (urinary tract infection) Is this a current diagnosis for this admission?: Yes Plan: UA (+) for UTI Complicated UTI - treated with Invanz, gentamycin and vancomycin History of gentamycin resistance from previous hospitalizations - will d/c waiting for urine C&S There is likely a great deal of colonization due to intermediate Urostomy (20+ yrs) (3) End stage renal disease Is this a current diagnosis for this admission?: Yes Plan: PMH ESRD (MWF hemodialysis) Patient of Dr. Monaco Received HD today (4) COPD (chronic obstructive pulmonary disease) Qualifiers: COPD type: unspecified COPD Qualified Code(s): J44.9 - Chronic obstructive pulmonary disease, unspecified Is this a current diagnosis for this admission?: Yes Plan: Without exacerbation Patient not on home inhalers Does not require supplemental O2 Unclear if this is true PMH diagnosis, will clarify tomorrow (5) Fecal impaction Is this a current diagnosis for this admission?: Yes Plan: Resolved Received stool softeners and digital disimpaction Multiple large bowel movements since admission - Time Time Spent with patient: 35 or more minutes Medications reviewed and adjusted accordingly: Yes Anticipated discharge: Home Within: within 36 hours - Inpatient Certification Based on my medical assessment, after consideration of the patient's comorbidities, presenting symptoms, or acuity I expect that the services needed warrant INPATIENT care.: Yes I certify that my determination is in accordance with my understanding of Medicare's requirements for reasonable and necessary INPATIENT services [42 CFR 412.3e].: Yes Medical Necessity: Need for IV Antibiotics
[2018-09-19] MEDS: HEPARIN SOD (PORCINE) 5,000 UNIT/ML 1 ML SYRINGE SUBCUT SCH ×2 (05:10→13:19)
[2018-09-19 08:00] LABS: HEMATOCRIT 28.7 % (37.9-51.0); MEAN CORPUSCULAR HEMOGLOBIN 32.1 pg (27.0-33.4); MEAN CORPUSCULAR HGB CONC 34.9 g/dL (32.0-36.0); MEAN CORPUSCULAR VOLUME 92 fl (80-97); PLATELET COUNT 119 10^3/uL (150-450); RED BLOOD COUNT 3.12 10^6/uL (4.35-5.55); WHITE BLOOD COUNT 5.5 10^3/uL (4.0-10.5)
[2018-09-19 08:17] LABS: ALANINE AMINOTRANSFERASE 18 U/L (21-72); ALBUMIN 3.5 g/dL (3.5-5.0); ALKALINE PHOSPHATASE 67 U/L (38-126); ANION GAP 10 (5-19); ASPARTATE AMINO TRANSFERASE 32 U/L (17-59); BILIRUBIN,DIRECT 0.3 mg/dL (0.0-0.4); BILIRUBIN,TOTAL 0.4 mg/dL (0.2-1.3); BLOOD UREA NITROGEN 40 mg/dL (7-20); CALCIUM 8.3 mg/dL (8.4-10.2); CARBON DIOXIDE 30 mmol/L (22-30); CHLORIDE 102 mmol/L (98-107); GLUCOSE 110 mg/dL (75-110); POTASSIUM 4.4 mmol/L (3.6-5.0); SODIUM 141.8 mmol/L (137-145)
[2018-09-19] MEDS: IPRATROPIUM/ALBUTEROL 0.5-2.5 MG/3 ML AMPUL NEB SCH ×3 (08:23→16:07)
[2018-09-19] MEDS: ERTAPENEM SODIUM 0.5 GM in NORMAL SALINE 50 ML IV SCH (08:55)
[2018-09-19] MEDS: CALCIUM CARBONATE 500 MG TAB.CHEW PO SCH (08:59)
[2018-09-19] MEDS: ISOSORBIDE MONONITRATE 20 MG TABLET PO SCH (08:59)
[2018-09-19] MEDS: SODIUM BICARBONATE 650 MG TABLET PO SCH (08:59)
[2018-09-19] MEDS: CETIRIZINE 10 MG TABLET PO SCH (08:59)
[2018-09-19] MEDS: MAGNESIUM OXIDE 400 MG TABLET PO SCH (08:59)
[2018-09-19] MEDS: LANSOPRAZOLE 15 MG TAB.RAP.DR PO SCH (09:00)
[2018-09-19 11:51] VITALS: BP 107/48
--- NOTE | 2018-09-19 13:04 | PDOC PROGRESS REPORT ---
Subjective Progress Note for:: 09/19/18 Reason For Visit: Patient seen today. He is more awake alert and oriented even though he is still unable to recall the place and time. Discussions were done with this treating nurse. Vision seems to responded well to the IV antibiotics. Reviewed cultures and IV ceftazidime seems to be a good antibiotic for both Klebsiella and E. coli for his urosepsis. Physical Exam Vital Signs: Temp Pulse Resp BP Pulse Ox 98.7 F 82 12 107/48 L 96 09/19/18 11:50 09/19/18 11:50 09/19/18 11:50 09/19/18 11:50 09/19/18 11:50 Intake & Output 09/18/18 09/19/18 09/20/18 06:59 06:59 06:59 Intake Total 578 1028 50 Output Total 480 1150 Balance 98 -122 50 Weight 66.5 kg 63.1 kg General appearance: PRESENT: no acute distress Respiratory exam: PRESENT: clear to auscultation jenni. ABSENT: crackles Cardiovascular exam: PRESENT: +S1, +S2, systolic murmur GI/Abdominal exam: PRESENT: normal bowel sounds, soft. ABSENT: organomegaly, tenderness Extremities exam: ABSENT: pedal edema Neurological exam: PRESENT: alert, awake, oriented to person. ABSENT: oriented to place, oriented to time Skin exam: ABSENT: cyanosis, erythema, rash Results Laboratory Results: 09/19/18 07:20 09/19/18 07:20 09/18/18 09/19/18 09/19/18 11:30 07:20 07:20 WBC 5.5 RBC 3.12 L Hgb 10.0 L Hct 28.7 L MCV 92 MCH 32.1 MCHC 34.9 RDW 14.0 Plt Count 119 L Sodium 141.8 Potassium 4.4 Chloride 102 Carbon Dioxide 30 Anion Gap 10 BUN 40 H Creatinine 4.18 H Est GFR ( Amer) 17 L Est GFR (Non-Af Amer) 14 L Glucose 110 Calcium 8.3 L Magnesium 2.4 H 2.2 Total Bilirubin 0.4 AST 32 ALT 18 L Alkaline Phosphatase 67 Total Protein 6.0 L Albumin 3.5 09/16/18 16:54 Urostomy Urine Culture - Final Klebsiella Oxytoca Escherichia Coli Enterococcus Faecalis(Group D) Enterococcus Avium 09/16/18 16:10 Blood Blood Culture - Final Staphylococcus Epidermidis 09/18/18 11:30 NT-Pro-B Natriuret Pep 8870 H Impressions: Chest X-Ray 09/16/18 15:52 IMPRESSION: NO ACUTE RADIOGRAPHIC FINDING IN THE CHEST. Head CT 09/16/18 15:58 IMPRESSION: CHRONIC CHANGES OF ATROPHY AND MICROVASCULAR ISCHEMIA. NO ACUTE PROCESS. EVIDENCE OF ACUTE STROKE: NO. Abdomen/Pelvis CT 09/16/18 19:28 IMPRESSION: 5.4 cm abdominal aortic aneurysm, known. Recommend continued vascular consultation and follow-up every 6 months. Reference: J Vasc Surg 2009 Apr;50(4 Suppl):S2-49. Left paraesophageal hernia. Cardiomegaly. Moderate stool in the rectum. Renal atrophy bilaterally. Gallstone without other evidence of acute cholecystitis. Assessment & Plan - Diagnosis (1) Acute UTI (urinary tract infection) Is this a current diagnosis for this admission?: Yes Plan: Markedly improved on IV antibiotics. I would suggest patient be converted to IV ceftazidime and he could be discharged to home and undergo outpatient dialysis tomorrow which is his due date. I can arrange IV ceftazidime postdialysis as an outpatient for the next week or so. Given the degree of urosepsis event to including hemodynamic instability I would rather he be sent home on IV antibiotics especially given the fact that we can administer it postdialysis and therefore maintain control of a full therapy rather than any other oral antibiotics.Discussed this with the treating nurse who says she will discussed this with the hospitalist. (2) Sepsis Qualifiers: Sepsis type: sepsis due to unspecified organism Qualified Code(s): A41.9 - Sepsis, unspecified organism Is this a current diagnosis for this admission?: Yes Plan: Markedly improved clinically as well as lab elizabeth and hemodynamic stability. (3) Acute encephalopathy Plan: Continuing to improve. (4) End-stage renal disease on hemodialysis Plan: Patient in my opinion is ready for discharge from a renal standpoint of view and can get outpatient discharge tomorrow at [facility] which is his due date. As mentioned earlier would send him home on IV ceftazidime given degree of sepsis the patient came in with and the ability for us to make sure he gets a complete course of antibiotics. (5) Fecal impaction Is this a current diagnosis for this admission?: Yes Plan: I have ordered soapsuds enema and follow that with laxatives.
[2018-09-19] MEDS ORDERED: AMOXICILLIN TR/POT CLAVULANATE 500-125 MG TAB PO SCH (14:00)
== END 2018-09-19 17:13 | disposition home health service (06) | DRG 871 ==
LOC: ER 15:35 → EH 21:35 → OBSVTOIN 21:35 → 4S 09-17 00:10
PROVIDERS: ADMIT Internal Medicine; ATTEND Internal Medicine
PROC: 3E0F3GC Introduction of Other Therapeutic Substance into Respiratory Tract, Percutaneous Approach (ICD-10-PCS; 2018-09-17)
PROC: 5A1D70Z Performance of Urinary Filtration, Intermittent, Less than 6 Hours Per Day (ICD-10-PCS; principal; 2018-09-18)
DX: A41.9 Sepsis, unspecified organism (principal); N18.6 End stage renal disease; I13.2 Hypertensive heart and chronic kidney disease with heart failure and with stage 5 chronic kidney disease, or end stage renal disease; G93.40 Encephalopathy, unspecified; N39.0 Urinary tract infection, site not specified; I50.9 Heart failure, unspecified; Z93.6 Other artificial openings of urinary tract status; Z99.2 Dependence on renal dialysis; I25.10 Atherosclerotic heart disease of native coronary artery without angina pectoris; I73.9 Peripheral vascular disease, unspecified; M10.9 Gout, unspecified; H91.90 Unspecified hearing loss, unspecified ear; K56.41 Fecal impaction; B96.20 Unspecified Escherichia coli [E. coli] as the cause of diseases classified elsewhere; B96.1 Klebsiella pneumoniae [K. pneumoniae] as the cause of diseases classified elsewhere; Z96.641 Presence of right artificial hip joint; Z85.46 Personal history of malignant neoplasm of prostate; Z85.51 Personal history of malignant neoplasm of bladder; Z85.528 Personal history of other malignant neoplasm of kidney; Z86.19 Personal history of other infectious and parasitic diseases; Z95.1 Presence of aortocoronary bypass graft; Z79.82 Long term (current) use of aspirin; Z88.3 Allergy status to other anti-infective agents; Z86.14 Personal history of Methicillin resistant Staphylococcus aureus infection; Z80.9 Family history of malignant neoplasm, unspecified
CPT/HCPCS: 36415; 70450; 71045; 74176; 80048; 80053; 81001; 82533; 82803; 83605; 83735; 83880; 85025; 85027; 87040; 87077; 87086; 87088; 87186; 87804; 94640; 96365; 96367; 96375; 96376; 99285; J0743; J1335; J1580; J1644; J1720; J3370; J3475; J3490; J7030; J7040; J7060; J7620

== ENCOUNTER 2018-12-02 15:30 | Emergency (ER) | payer OTHER, MEDICARE ==
--- NOTE | 2018-12-02 17:28 | ER Document Report ---
ED Medical Screen (RME) - General Chief Complaint: Urinary Problem Stated Complaint: BLOOD IN URINE Time Seen by Provider: 12/02/18 17:22 Primary Care Provider: FRANCINE,ANTONIO [Primary Care Provider] - Follow up as needed Mode of Arrival: Ambulatory Information source: Patient TRAVEL OUTSIDE OF THE [place] IN LAST 30 DAYS: No - HPI Patient complains to provider of: HEMATURIA Notes: 12/02/18 17:27 Patient here with hematuria. The patient has a urostomy bag which she has had for about 20 years. He is also a dialysis patient. Her last few days he has noticed a lot of blood coming out of the urostomy. He was having some pain, but states the pains has subsided. No fevers. No nausea, vomiting, diarrhea. He did dialysis today. Exam No distress, nontoxic-appearing. A few scattered expiratory wheezes. Heart sounds normal. Dark red blood noted within the urostomy bag. No focal abdominal tenderness on limited triage abdominal exam. Plan CBC, CMP, coags, urine, CT abdomen pelvis without contrast. An initial examination was made on the patient as part of the triage process, and it was determined a more comprehensive evaluation was necessary. Initial labs were ordered and patient was transferred to another provider in the ED who assumed care and finished evaluation and plan. - Related Data Allergies/Adverse Reactions: ciprofloxacin [From Cipro] Allergy (Verified 05/24/18 15:23) Past Medical History - Past Medical History Cardiac Medical History: Reports: Hx Congestive Heart Failure, Hx Coronary Artery Disease, Hx Hypercholesterolemia, Hx Hypertension, Hx Peripheral Vascular Disease Pulmonary Medical History: Reports: Hx COPD - Possible Neurological Medical History: Denies: Hx Cerebrovascular Accident, Hx Seizures Renal/ Medical History: Reports: Hx End Stage Renal Disease - On hemodialysis Sunday and Sunday. Denies: Hx Peritoneal Dialysis Malignancy Medical History: Reports Hx Renal (Kidney) Cancer - Bladder and prostate cancer Musculoskeltal Medical History: Reports Hx Gout Psychiatric Medical History: Denies: Hx Depression Infectious Medical History: Reports: Hx C-Diff - Status post fecal transplant Past Surgical History: Reports: Hx Cardiac Catheterization, Hx Cardiac Surgery - CABG, Hx Coronary Artery Bypass Graft, Hx Genitourinary Surgery - urostomy, Hx Orthopedic Surgery - Right hip hemiarthroplasty August 2016, Hx Urinary Tract Surgery - bladder /prostate, Hx Vascular Surgery - AAA repair, Other - Nephrostomy tube placement, creation of ileal conduit, prostatectomy - Immunizations Immunizations up to date: Yes Hx Diphtheria, Pertussis, Tetanus Vaccination: Yes History of Influenza Vaccine for 04/2017 - 09/2017 Season: Yes Influenza Administration Date for 04/2017 - 09/2017 Season: 04/15/17 Physical Exam - Vital signs Vitals: Temp Pulse Resp BP Pulse Ox 97.6 F 77 18 110/42 L 97 12/02/18 16:19 12/02/18 16:19 12/02/18 16:19 12/02/18 16:19 12/02/18 16:19 Course - Vital Signs Vital signs: Temp Pulse Resp BP Pulse Ox 97.6 F 77 18 110/42 L 97 12/02/18 16:19 12/02/18 16:19 12/02/18 16:19 12/02/18 16:19 12/02/18 16:19 Doctor's Discharge - Discharge Referrals: [facility] [[facility]] - Follow up as needed
[2018-12-02 18:14] LABS: HEMOGLOBIN 12.4 g/dL (13.5-17.0); MEAN CORPUSCULAR HEMOGLOBIN 31.1 pg (27.0-33.4); MEAN CORPUSCULAR HGB CONC 33.6 g/dL (32.0-36.0); MEAN CORPUSCULAR VOLUME 93 fl (80-97); RED CELL DISTRIBUTION WIDTH 13.9 % (11.5-14.0); WHITE BLOOD COUNT 9.6 10^3/uL (4.0-10.5)
[2018-12-02 18:23] LABS: INTERNATIONAL RATION (INR) 0.95; PROTHROMBIN TIME 13.2 SEC (11.4-15.4)
[2018-12-02 18:24] LABS: PARTIAL THROMBOPLASTIN TIME 23.3 SEC (23.5-35.8)
[2018-12-02 18:30] LABS: ALANINE AMINOTRANSFERASE 27 U/L (21-72); ALBUMIN 4.3 g/dL (3.5-5.0); ALKALINE PHOSPHATASE 99 U/L (38-126); ANION GAP 14 (5-19); ASPARTATE AMINO TRANSFERASE 25 U/L (17-59); BILIRUBIN,DIRECT 0.3 mg/dL (0.0-0.4); BILIRUBIN,TOTAL 0.5 mg/dL (0.2-1.3); BLOOD UREA NITROGEN 21 mg/dL (7-20); CALCIUM 8.6 mg/dL (8.4-10.2); CARBON DIOXIDE 30 mmol/L (22-30); CHLORIDE 98 mmol/L (98-107); GLUCOSE 98 mg/dL (75-110); POTASSIUM 4.2 mmol/L (3.6-5.0); SODIUM 142.3 mmol/L (137-145); TOTAL PROTEIN 7.9 g/dL (6.3-8.2)
--- NOTE | 2018-12-02 18:32 | RADIOLOGY REPORT (SQ) ---
EXAM DESCRIPTION: CT ABD/PELVIS NO ORAL OR IV COMPLETED DATE/TIME: 12/02/2018 5:54 pm REASON FOR STUDY: HEMATURIA COMPARISON: 09/16/2018 TECHNIQUE: CT scan of the abdomen and pelvis performed without intravenous or oral contrast. Images reviewed with lung, soft tissue, and bone windows. Reconstructed coronal and sagittal MPR images revi ewed. All images stored on PACS. All CT scanners at this facility use dose modulation, iterative reconstruction, and/or weight based d osing when appropriate to reduce radiation dose to as low as reasonably achievable (ALARA). [facility]: Dose Right [facility]: CareDose [facility]: Dose Right [facility]: Teradose 4D [facility]: [facility] RADIATION DOSE: CT Rad equipment meets quality standard of care and radiation dose reduction techniq ues were employed. CTDIvol: 10.6 mGy. DLP: 589 mGy-cm.mGy. LIMITATIONS: None. FINDINGS: LOWER CHEST: Small hiatal hernia. NON-CONTRASTED LIVER, SPLEEN, ADRENALS: Evaluation limited by lack of IV contrast. No identified sign ificant masses. PANCREAS: No masses. No peripancreatic inflammatory changes. GALLBLADDER: Small gallstones. RIGHT KIDNEY AND URETER: Cortical atrophy. No mass. No calculi. No hydronephrosis. LEFT KIDNEY AND URETER: Cortical atrophy. No mass. No calculi. No hydronephrosis. 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 BOWEL AND PERITONEAL CAVITY: No obvious masses or inflammatory changes. No free fluid. APPENDIX: Not identified. PELVIS, BLADDER, AND ABDOMINAL WALL:Prior cystectomy. Urinary diversion procedure. Evaluation of th e mid and lower pelvis is limited by artifact from a right hip arthroplasty. BONES: No significant findings. OTHER: Fem-fem bypass graft. IMPRESSION: Surgical changes. Hiatal hernia. Cholelithiasis. No urinary calculi. Renal cortical atrophy. No acute finding. COMMENT: Quality ID # [id number]: Final reports with documentation of one or more dose reduction techniques (e.g., Automated exposure control, adjustment of the mA and/or kV according to patient size, use of iterative reconstruction technique) TECHNICAL DOCUMENTATION: JOB ID: [id number] [employer]- All Rights Reserved Reading location - IP/workstation name: [email or web address]
[2018-12-02 18:50] LABS: PLATELET COUNT 173 10^3/uL (150-450)
[2018-12-02 18:54] LABS: ABSOLUTE LYMPHOCYTES# (MANUAL) 1.7 10^3/uL (0.5-4.7); ABSOLUTE MONOCYTES # (MANUAL) 0.2 10^3/uL (0.1-1.4); ABSOLUTE NEUTROPHILS# (MANUAL) 7.1 10^3/uL (1.7-8.2); BASOPHILS % (MANUAL) 0 % (0-2); EOSINOPHILS % (MANUAL) 6 % (0-6); LYMPHOCYTES % (MANUAL) 18 % (13-45); MONOCYTES % (MANUAL) 2 % (3-13); SEGMENTED NEUTROPHILS % (MAN) 74 % (42-78); TOTAL CELLS COUNTED 100
[2018-12-02 18:55] LABS: PLATELET CLUMPS PRESENT; PLATELET COMMENT ADEQUATE; RBC MORPHOLOGY COMMENT NORMO-CYTIC/CHROMIC
[2018-12-02 21:44] LABS: APPEARANCE,URINE SLIGHTLY-CLOUDY; BILIRUBIN,URINE NEGATIVE (NEGATIVE); GLUCOSE, URINE NEGATIVE (NEGATIVE); KETONES,URINE TRACE mg/dL (NEGATIVE); LEUKOCYTE ESTERASE,URINE MODERATE (NEGATIVE); NITRITE,URINE NEGATIVE (NEGATIVE); PROTEIN,URINE 100 mg/dL (NEGATIVE); URINE SPECIFIC GRAVITY 1.017
[2018-12-02 21:50] LABS: COLOR,URINE BROWN
[2018-12-02] MEDS ORDERED: CEPHALEXIN 500 MG CAPSULE PO ONE (22:02)
--- NOTE | 2018-12-02 22:06 | ER Document Report ---
ED General - General Chief Complaint: Urinary Problem Stated Complaint: BLOOD IN URINE Time Seen by Provider: 12/02/18 17:22 Primary Care Provider: ANTONIO ESCAMILLA [NO LOCAL MD] - Follow up in 3-5 days Mode of Arrival: Ambulatory Notes: Patient is a 78-year-old male past medical history of urostomy, previous episodes of hematuria, dialysis dependence who presents with 2 to 3 days of gross hematuria into the urostomy bag. Symptoms were noted several days ago, have been worsening since onset. Nothing improves or worsens. Similar to when he had a urinary tract infection in the past. Has not had fever or constitutional symptoms. Denies abdominal pain or flank pain. Has not seen his [facility] care physician regarding today's concerns. TRAVEL OUTSIDE OF THE [place] IN LAST 30 DAYS: No - Related Data Allergies/Adverse Reactions: ciprofloxacin [From Cipro] Allergy (Verified 05/24/18 15:23) Past Medical History - General Information source: Patient - Social History Smoking Status: Former Smoker Chew tobacco use (# tins/day): No Frequency of alcohol use: None Drug Abuse: None Lives with: Family Family History: Reviewed & Not Pertinent, Malignancy Patient has suicidal ideation: No Patient has homicidal ideation: No - Past Medical History Cardiac Medical History: Reports: Hx Congestive Heart Failure, Hx Coronary Artery Disease, Hx Hypercholesterolemia, Hx Hypertension, Hx Peripheral Vascular Disease Pulmonary Medical History: Reports: Hx COPD - Possible Neurological Medical History: Denies: Hx Cerebrovascular Accident, Hx Seizures Renal/ Medical History: Reports: Hx End Stage Renal Disease - On hemodialysis Sunday and Sunday. Denies: Hx Peritoneal Dialysis Malignancy Medical History: Reports Hx Renal (Kidney) Cancer - Bladder and prostate cancer Musculoskeletal Medical History: Reports Hx Gout Psychiatric Medical History: Denies: Hx Depression Infectious Medical History: Reports: Hx C-Diff - Status post fecal transplant Past Surgical History: Reports: Hx Cardiac Catheterization, Hx Cardiac Surgery - CABG, Hx Coronary Artery Bypass Graft, Hx Genitourinary Surgery - urostomy, Hx Orthopedic Surgery - Right hip hemiarthroplasty August 2016, Hx Urinary Tract Surgery - bladder /prostate, Hx Vascular Surgery - AAA repair, Other - Nephrostomy tube placement, creation of ileal conduit, prostatectomy - Immunizations Immunizations up to date: Yes Hx Diphtheria, Pertussis, Tetanus Vaccination: Yes Hx Pneumococcal Vaccination: 04/17/14 Review of Systems - Review of Systems Notes: Constitutional: Negative for fever. HENT: Negative for sore throat. Eyes: Negative for visual changes. Cardiovascular: Negative for chest pain. Respiratory: Negative for shortness of breath. Gastrointestinal: Negative for abdominal pain, vomiting or diarrhea. Genitourinary: Positive for gross hematuria Musculoskeletal: Negative for back pain. Skin: Negative for rash. Neurological: Negative for headaches, weakness or numbness. 10 point ROS negative except as marked above and in HPI. Physical Exam - Vital signs Vitals: Temp Pulse Resp BP Pulse Ox 97.6 F 77 18 110/42 L 97 12/02/18 16:19 12/02/18 16:19 12/02/18 16:19 12/02/18 16:19 12/02/18 16:19 Interpretation: Normal Notes: PHYSICAL EXAMINATION: GENERAL: Elderly male in no acute distress HEAD: Atraumatic, normocephalic. EYES: Pupils equal round and reactive to light, extraocular movements intact, sclera anicteric, conjunctiva are normal. ENT: nares patent, oropharynx clear without exudates. Moist mucous membranes. NECK: Normal range of motion, supple without lymphadenopathy LUNGS: Breath sounds clear to auscultation bilaterally and equal. No wheezes rales or rhonchi. HEART: Regular rate and rhythm without murmurs ABDOMEN: Soft, nontender, normoactive bowel sounds. No guarding, no rebound. No masses appreciated. Urostomy bag in the right lower quadrant with gross hematuria EXTREMITIES: Normal range of motion, no pitting or edema. No cyanosis. NEUROLOGICAL: No focal neurological deficits. Moves all extremities spontaneously and on command. PSYCH: Normal mood, normal affect. SKIN: Warm, Dry, normal turgor, no rashes or lesions noted. Course - Re-evaluation Re-evalutation: 12/02/18 22:04 Patient presents with approximately 4 to 5 days of gross hematuria from his cystostomy bag. He has had this in the past related to urinary tract infections and his urine does show gross hematuria as well as 3+ bacteria and positive leuk esterase. A urine culture has been sent. The remainder of his labs are unremarkable without any significant anemia, renal functions improved from baseline and patient is a dialysis patient. CT scan obtained in triage unremarkable without any acute clinical findings related to his presentation today. Patient has been started on cephalexin and has been sent home with a prescription for the same. At this time will discharge with return precautions and follow-up recommendations. Verbal discharge instructions given a the bedside and opportunity for questions given. Medication warnings reviewed. Christofer natacha is in agreement with this plan and has verbalized understanding of return precautions and the need for primary care follow-up in the next 24-72 hours. - Vital Signs Vital signs: Temp Pulse Resp BP Pulse Ox 97.8 F 79 17 115/60 99 12/02/18 22:28 12/02/18 22:28 12/02/18 22:28 12/02/18 22:28 12/02/18 22:28 - Laboratory Result Diagrams: 12/02/18 17:40 12/02/18 17:40 Laboratory results interpreted by me: 12/02/18 12/02/18 12/02/18 17:40 17:40 17:40 RBC 4.00 L Hgb 12.4 L Hct 37.0 L Monocytes % (Manual) 2 L APTT 23.3 L BUN 21 H Creatinine 2.73 H Est GFR ( Amer) 28 L Est GFR (Non-Af Amer) 23 L Urine Protein Urine Ketones Urine Blood Urine Urobilinogen Ur Leukocyte Esterase Urine Ascorbic Acid 12/02/18 20:46 RBC Hgb Hct Monocytes % (Manual) APTT BUN Creatinine Est GFR ( Amer) Est GFR (Non-Af Amer) Urine Protein 100 H Urine Ketones TRACE H Urine Blood LARGE H Urine Urobilinogen 4.0 H Ur Leukocyte Esterase MODERATE H Urine Ascorbic Acid 20 H - Diagnostic Test Radiology reviewed: Reports reviewed Discharge - Discharge Clinical Impression: End stage renal disease, Bacteriuria Hematuria Qualifiers: Hematuria type: gross Qualified Code(s): R31.0 - Gross hematuria Condition: Good Disposition: HOME, SELF-CARE Additional Instructions: Your urine studies do show blood as well as bacteria in your urine. You are being started on antibiotics to treat a possible infection causing the blood in your urine. Return if you have fever of greater than 100.4 F, worsening of your hematuria, abdominal pain, pass out, or have any other symptoms that are worrisome to you. Prescriptions: Cephalexin Monohydrate [Keflex 500 mg Capsule] 500 mg PO Q6H 7 Days capsule [facility]errals: [facility] [NO LOCAL MD] - Follow up in 3-5 days
[2018-12-02 22:30] VITALS: BP 115/60
== END 2018-12-02 22:29 | disposition home or self-care (01) ==
LOC: ER 15:30
DX: I13.2 Hypertensive heart and chronic kidney disease with heart failure and with stage 5 chronic kidney disease, or end stage renal disease (principal); N18.6 End stage renal disease; R31.0 Gross hematuria; R82.71 Bacteriuria; R39.198 Other difficulties with micturition; Z99.2 Dependence on renal dialysis; Z98.890 Other specified postprocedural states; Z87.891 Personal history of nicotine dependence; I25.10 Atherosclerotic heart disease of native coronary artery without angina pectoris; J44.9 Chronic obstructive pulmonary disease, unspecified
CPT/HCPCS: 36415; 74176; 80053; 81001; 85025; 85610; 85730; 87086; 87088; 87186; 99284

== ENCOUNTER 2019-01-14 18:10 | Inpatient (IN) | payer OTHER, MEDICARE ==
--- NOTE | 2019-01-14 19:06 | ER Document Report ---
ED Medical Screen (RME) - General Chief Complaint: Fever Stated Complaint: FEVER TRAVEL OUTSIDE OF THE [place] IN LAST 30 DAYS: No - HPI Notes: 01/14/19 19:01 Patient is a 78-year-old male with a history of urostomy, end-stage renal disease and on dialysis every Sunday/Sunday/Sunday, COPD (has oxygen for nighttime) with oxygen saturation usually around 90% on room air, hypertension, coronary artery disease, congestive heart failure who presents with son for complaints of fever that was 103 at home, intermittent confusion, and foul- smelling urine when he drained the bag. Son states that he has also had a wet sounding nonproductive cough over the past couple weeks. Son states that he usually acts like this with some confusion and fever when he has a urinary infection. He is otherwise able to eat and drink without difficulty. He is having normal bowel movements. Pt has no complaint of pain and states that he is otherwise feeling well. Denies BUTLER, fever, neck pain, URI, CP, SOB, Abd pain, back pain, or rash. I have treated and performed a rapid initial assessment of this patient. A comprehensive ED assessment and evaluation of the patient, analysis of test results and completion of medical decision making process will be conducted by additional ED providers. PHYSICAL EXAMINATION: GENERAL: Well-appearing, well-nourished and in no acute distress. A&Ox4. Answers questions appropriately. LUNGS: diminished b/l base HEART: Regular rate and rhythm ABDOMEN: Soft, nondistended abdomen. No guarding, no rebound. Normal bowel sounds present. No CVA tenderness bilaterally. grossly nontender (cannot el icit thorough abd exam w/o bed, however). - Related Data Allergies/Adverse Reactions: ciprofloxacin [From Cipro] Allergy (Verified 01/14/19 18:11) Past Medical History - Past Medical History Cardiac Medical History: Reports: Hx Congestive Heart Failure, Hx Coronary Artery Disease, Hx Hypercholesterolemia, Hx Hypertension, Hx Peripheral Vascular Disease Pulmonary Medical History: Reports: Hx COPD - Possible Neurological Medical History: Denies: Hx Cerebrovascular Accident, Hx Seizures Renal/ Medical History: Reports: Hx End Stage Renal Disease - On hemodialysis Sunday and Sunday. Denies: Hx Peritoneal Dialysis Malignancy Medical History: Reports Hx Renal (Kidney) Cancer - Bladder and prostate cancer Musculoskeltal Medical History: Reports Hx Gout Psychiatric Medical History: Denies: Hx Depression Infectious Medical History: Reports: Hx C-Diff - Status post fecal transplant Past Surgical History: Reports: Hx Cardiac Catheterization, Hx Cardiac Surgery - CABG, Hx Coronary Artery Bypass Graft, Hx Genitourinary Surgery - urostomy, Hx Orthopedic Surgery - Right hip hemiarthroplasty August 2016, Hx Urinary Tract Surgery - bladder /prostate, Hx Vascular Surgery - AAA repair, Other - Nephrostomy tube placement, creation of ileal conduit, prostatectomy - Immunizations Immunizations up to date: Yes Hx Diphtheria, Pertussis, Tetanus Vaccination: Yes History of Influenza Vaccine for 04/2017 - 09/2017 Season: Yes Influenza Administration Date for 04/2017 - 09/2017 Season: 04/15/17 Physical Exam - Vital signs Vitals: Temp Pulse Resp BP Pulse Ox 101.8 F H 86 24 H 120/59 L 91 L 01/14/19 18:15 01/14/19 18:15 01/14/19 18:15 01/14/19 18:15 01/14/19 18:15 Course - Vital Signs Vital signs: Temp Pulse Resp BP Pulse Ox 101.8 F H 86 24 H 120/59 L 91 L 01/14/19 18:15 01/14/19 18:15 01/14/19 18:15 01/14/19 18:15 01/14/19 18:15
[2019-01-14] MEDS ORDERED: ACETAMINOPHEN 325 MG TABLET PO ONE (19:07)
--- NOTE | 2019-01-14 19:29 | RADIOLOGY REPORT (SQ) ---
EXAM DESCRIPTION: CHEST SINGLE VIEW COMPLETED DATE/TIME: 01/14/2019 7:19 pm REASON FOR STUDY: cough, fever COMPARISON: 09/16/2018 EXAM PARAMETERS: NUMBER OF VIEWS: One view. TECHNIQUE: Single frontal radiographic view of the chest acquired. RADIATION DOSE: NA LIMITATIONS: None. FINDINGS: LUNGS AND PLEURA: Ill-defined retrocardiac opacification. MEDIASTINUM AND HILAR STRUCTURES: No masses. Contour normal. HEART AND VASCULAR STRUCTURES: Heart normal in size. Normal vasculature. BONES: No acute findings. HARDWARE: Sternotomy wires. OTHER: No other significant finding. IMPRESSION: Cannot exclude left lower lobe pneumonia. TECHNICAL DOCUMENTATION: JOB ID: [id number] [employer]- All Rights Reserved Reading location - IP/workstation name: [email or web address]
[2019-01-14 19:58] LABS: ABSOLUTE BASOPHILS # (AUTO) 0.1 10^3/uL (0.0-0.2); ABSOLUTE LYMPHOCYTES (AUTO) 0.6 10^3/uL (0.5-4.7); ABSOLUTE MONOCYTES (AUTO) 0.5 10^3/uL (0.1-1.4); ABSOLUTE NEUT (AUTO) 6.8 10^3/uL (1.7-8.2); BASOPHILS % (AUTO) 0.7 % (0-2); EOSINOPHILS % (AUTO) 0.1 % (0-6); HEMATOCRIT 38.8 % (37.9-51.0); MEAN CORPUSCULAR HEMOGLOBIN 31.5 pg (27.0-33.4); MEAN CORPUSCULAR HGB CONC 33.6 g/dL (32.0-36.0); MEAN CORPUSCULAR VOLUME 94 fl (80-97); MONOCYTES % (AUTO) 6.4 % (3-13); PLATELET COUNT 155 10^3/uL (150-450); RED BLOOD COUNT 4.13 10^6/uL (4.35-5.55); RED CELL DISTRIBUTION WIDTH 14.7 % (11.5-14.0); SEGMENTED NEUTROPHILS % (AUTO) 84.8 % (42-78); TOTAL CELLS COUNTED % (AUTO) 100 %; VENOUS BLOOD BASE EXCESS 4.5 mmol/L; VENOUS BLOOD HCO3 30.3 mmol/L (20-32); VENOUS BLOOD PH 7.4 (7.30-7.42)
[2019-01-14 20:18] LABS: ALANINE AMINOTRANSFERASE 17 U/L (21-72); ALBUMIN 4.4 g/dL (3.5-5.0); ALKALINE PHOSPHATASE 104 U/L (38-126); ANION GAP 16 (5-19); ASPARTATE AMINO TRANSFERASE 22 U/L (17-59); BILIRUBIN,DIRECT 0.3 mg/dL (0.0-0.4); BILIRUBIN,TOTAL 0.6 mg/dL (0.2-1.3); BLOOD UREA NITROGEN 44 mg/dL (7-20); CALCIUM 8.2 mg/dL (8.4-10.2); CARBON DIOXIDE 25 mmol/L (22-30); CHLORIDE 102 mmol/L (98-107); GLUCOSE 119 mg/dL (75-110); POTASSIUM 5.4 mmol/L (3.6-5.0); SODIUM 143.3 mmol/L (137-145); TOTAL PROTEIN 7.6 g/dL (6.3-8.2)
[2019-01-14] MEDS ORDERED: AZITHROMYCIN 250 MG TABLET PO ONE (21:27)
[2019-01-14] MEDS ORDERED: CEFTRIAXONE INJ 1000 MG VIAL IV ONE (21:27)
[2019-01-14] MEDS ORDERED: IPRATROPIUM/ALBUTEROL 0.5-2.5 MG/3 ML AMPUL NEB ONE (21:47)
[2019-01-14] MEDS ORDERED: METHYLPREDNISOLONE INJ 125 MG/2 ML SDV IV ONE (21:47)
[2019-01-14] MEDS ORDERED: ACETAMINOPHEN 325 MG TABLET PO PRN (21:48)
[2019-01-14] MEDS ORDERED: GUAIFENESIN SYRP 200 MG/10 ML UDC PO PRN (21:48)
[2019-01-14] MEDS ORDERED: IPRATROPIUM/ALBUTEROL 0.5-2.5 MG/3 ML AMPUL NEB PRN (21:48)
[2019-01-14] MEDS ORDERED: NORMAL SALINE 1000 ML 1,000 ML IV ONE (21:50)
--- NOTE | 2019-01-14 21:58 | ER Document Report ---
ED General - General Chief Complaint: Fever Stated Complaint: FEVER Time Seen by Provider: 01/14/19 19:09 Notes: Patient is a 78-year-old male with a history of urostomy, end-stage renal disease and on dialysis every Sunday/Sunday/Sunday, COPD (has oxygen for nighttime) with oxygen saturation usually around 90% on room air, hypertension, coronary artery disease, congestive heart failure who presents with son for complaints of fever that was 103 at home, intermittent confusion, and foul- smelling urine when he drained the bag. Son states that he has also had a wet sounding nonproductive cough over the past couple weeks. Son states that he usually acts like this with some confusion and fever when he has a urinary infection. He is otherwise able to eat and drink without difficulty. He is having normal bowel movements. The patient does not provide significant meaningful history and the entirety is almost exclusively provided by the son at the bedside. Patient does have a history of pneumonias. Has not seen his primary care physician regarding today's concerns. Family overall regards symptoms as being moderate to severe in intensity. Worsening since onset. Not exacerbated or alleviated by anything. TRAVEL OUTSIDE OF THE [place] IN LAST 30 DAYS: No - Related Data Allergies/Adverse Reactions: ciprofloxacin [From Cipro] Allergy (Verified 01/14/19 18:11) Past Medical History - General Information source: Patient - Social History Smoking Status: Former Smoker Frequency of alcohol use: None Drug Abuse: None Lives with: Family Family History: Reviewed & Not Pertinent, Malignancy Patient has suicidal ideation: No Patient has homicidal ideation: No - Past Medical History Cardiac Medical History: Reports: Hx Congestive Heart Failure, Hx Coronary Artery Disease, Hx Hypercholesterolemia, Hx Hypertension, Hx Peripheral Vascular Disease Pulmonary Medical History: Reports: Hx COPD - Possible Neurological Medical History: Denies: Hx Cerebrovascular Accident, Hx Seizures Renal/ Medical History: Reports: Hx End Stage Renal Disease - On hemodialysis Sunday and Sunday. Denies: Hx Peritoneal Dialysis Malignancy Medical History: Reports Hx Renal (Kidney) Cancer - Bladder and prostate cancer Musculoskeletal Medical History: Reports Hx Gout Psychiatric Medical History: Denies: Hx Depression Infectious Medical History: Reports: Hx C-Diff - Status post fecal transplant Past Surgical History: Reports: Hx Cardiac Catheterization, Hx Cardiac Surgery - CABG, Hx Coronary Artery Bypass Graft, Hx Genitourinary Surgery - urostomy, Hx Orthopedic Surgery - Right hip hemiarthroplasty August 2016, Hx Urinary Tract Surgery - bladder /prostate, Hx Vascular Surgery - AAA repair, Other - Nephrostomy tube placement, creation of ileal conduit, prostatectomy - Immunizations Immunizations up to date: Yes Hx Diphtheria, Pertussis, Tetanus Vaccination: Yes Hx Pneumococcal Vaccination: 04/17/14 Review of Systems - Review of Systems Notes: Constitutional: Positive for fever. HENT: Negative for sore throat. Eyes: Negative for visual changes. Cardiovascular: Negative for chest pain. Respiratory: Positive for cough, shortness of breath Gastrointestinal: Negative for abdominal pain, vomiting or diarrhea. Genitourinary: Negative for dysuria. Musculoskeletal: Negative for back pain. Skin: Negative for rash. Neurological: Negative for headaches, weakness or numbness. 10 point ROS negative except as marked above and in HPI. Physical Exam - Vital signs Vitals: Temp Pulse Resp BP Pulse Ox 101.8 F H 86 24 H 120/59 L 91 L 01/14/19 18:15 01/14/19 18:15 01/14/19 18:15 01/14/19 18:15 01/14/19 18:15 Interpretation: Hypoxic Notes: PHYSICAL EXAMINATION: GENERAL: Chronically ill in appearance, in no acute distress HEAD: Atraumatic, normocephalic. EYES: Pupils equal round and reactive to light, extraocular movements intact, sclera anicteric, conjunctiva are normal. ENT: nares patent, oropharynx clear without exudates. Moderately dry mucous membranes. NECK: Normal range of motion, supple without lymphadenopathy LUNGS: Coarse wheezing in all lung shah. Mild tachypnea. Diminished at the left base. HEART: Regular rate and rhythm without murmurs ABDOMEN: Soft, nontender, normoactive bowel sounds. No guarding, no rebound. No masses appreciated. EXTREMITIES: Normal range of motion, no pitting or edema. No cyanosis. NEUROLOGICAL: No focal neurological deficits. Moves all extremities spontaneously and on command. PSYCH: Alert, minimal verbal content SKIN: Warm, Dry, normal turgor, no rashes or lesions noted. Course - Re-evaluation Re-evalutation: 01/14/19 21:58 Patient presents with a left lower lobe pneumonia with associated fever and constitutional symptoms. Vitals are otherwise within acceptable limits. However patient is relatively high risk given chronic kidney disease, history of CHF, history of COPD, advanced age, do not believe he is appropriate for outpatient management. I discussed with Dr. Castillo who is accepted the patient for admission. The patient has been started on Solu-Medrol, nebulizer therapies with duo nebs, ceftriaxone and azithromycin. Restrictive fluid administration secondary to patient being hemodialysis dependent. - Vital Signs Vital signs: Temp Pulse Resp BP Pulse Ox 101.8 F H 71 21 H 127/61 H 93 01/14/19 18:15 01/14/19 20:19 01/14/19 21:02 01/14/19 21:02 01/14/19 21:02 - Laboratory Result Diagrams: 01/14/19 19:30 01/14/19 19:30 Laboratory results interpreted by me: 01/14/19 01/14/19 01/14/19 19:30 19:30 19:39 RBC 4.13 L Hgb 13.0 L RDW 14.7 H Seg Neutrophils % 84.8 H Lymphocytes % 8.0 L Potassium 5.4 H BUN 44 H Creatinine 3.89 H Est GFR ( Amer) 18 L Est GFR (Non-Af Amer) 15 L Glucose 119 H Calcium 8.2 L ALT 17 L Urine Ketones 80 H Ur Leukocyte Esterase MODERATE H - Diagnostic Test Radiology reviewed: Image reviewed, Reports reviewed Radiology results interpreted by me: 01/14/19 21:59 Chest x-ray: Left lower lobe pneumonia Discharge - Discharge Clinical Impression: ESRD (end stage renal disease) on dialysis Altered mental status Qualifiers: Altered mental status type: delirium Qualified Code(s): R41.0 - Disorientation, unspecified Left lower lobe pneumonia Qualifiers: Pneumonia type: due to unspecified organism Qualified Code(s): J18.1 - Lobar pneumonia, unspecified organism Condition: Fair Disposition: ADMITTED INPATIENT Admitting Provider: Jonathan (Hospitalist) Unit Admitted: Telemetry
[2019-01-14] MEDS ORDERED: LACTULOSE SYRUP 20 GM/30 ML UDCUP PO ONE (22:10)
[2019-01-14] MEDS: HEPARIN SOD (PORCINE) 5,000 UNIT/ML 1 ML SYRINGE SUBCUT SCH (22:13)
--- NOTE | 2019-01-15 05:55 | PDOC H&P ---
History of Present Illness Admission Date/PCP: 01/14/19 22:32 ASHU SOFIA MD Patient complains of: Fever and cough History of Present Illness: TYLOR JIMENEZ is a 78 year old male with a past medical history of urostomy, end-stage renal failure with hemodialysis Sunday, oxygen dependent COPD, hypertension, coronary artery disease congestive heart failure who presents with 12 hours of confusion, fever, nonproductive cough and shortness of breath. In the emergency department he is found to have persistent fever 100.2, left lower lobe infiltrate and persistent confusion unable to assist with history. As his son has subsequently left the emergency department his history is obtained by the record. Patient is started on supplemental oxygen, empiric antibiotics, albuterol and Atrovent and referred to the hospitalist for admission Past Medical History Cardiac Medical History: Reports: Congestive Heart Failure, Coronary Artery Disease, Hyperlipidema, Hypertension, Peripheral Vascular Disease Pulmonary Medical History: Reports: Chronic Obstructive Pulmonary Disease (COPD) - Possible Neurological Medical History: Denies: Seizures Renal/ Medical History: Reports: End Stage Renal Disease - On hemodialysis Sunday and Sunday Malignancy Medical History: Reports: Renal (Kidney) Cancer - Bladder and prostate cancer Musculoskeltal Medical History: Reports: Gout Psychiatric Medical History: Denies: Depression Infectious Medical History: Reports: 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 Past Surgical History Past Surgical History: Reports: Cardiac Catheterization, Coronary Artery Bypass Graft, Orthopedic Surgery - Right hip hemiarthroplasty August 2016, Vascular Surgery - AAA repair, Other - Nephrostomy tube placement, creation of ileal conduit, prostatectomy Social History Information Source: [facility], [facility] Records Lives with: Family Smoking Status: Former Smoker Frequency of Alcohol Use: None Hx Recreational Drug Use: No Drugs: None Hx Prescription Drug Abuse: No - Advance Directive Resuscitation Status: Full Code Family History Family History: Malignancy Parental Family History Reviewed: No - Unobtainable Children Family History Reviewed: No - Unobtainable Sibling(s) Family History Reviewed.: No - Unobtainable Medication/Allergy Home Medications: Atorvastatin Calcium [Lipitor 20 mg Tablet] 20 mg PO QHS 04/17/18 Calcium Carbonate [Tums Chewable 500 mg Tab.chew] 500 mg PO BID 04/17/18 Folic Acid/Vitamin B Comp W-C [Nephrocaps Multiple Vitamin Capsule] 1 cap PO QHS 04/17/18 Isosorbide Mononitrate [Ismo 20 mg Tablet] 20 mg PO Q12 04/17/18 Magnesium Oxide [Mag-Ox 400 mg Tablet] 400 mg PO DAILY 04/17/18 Multivit-Min/Folic/Vit K/Lycop [One-A-Day Men's 50 Plus Tablet] 1 each PO DAILY 04/17/18 Omeprazole 20 mg PO DAILY 04/17/18 Sodium Bicarbonate [Sodium Bicarbonate 650 mg Tablet] 650 mg PO Q12 04/17/18 Albuterol Sulfate [Ventolin 0.083% Neb 2.5 mg/3 mL Ampul] 1 vial NEB Q4 PRN 09/16/18 Cetirizine HCl [Zyrtec 10 mg Tablet] 10 mg PO DAILY 09/16/18 Acetaminophen [Tylenol 325 mg Tablet] 650 mg PO Q4HP PRN tablet 09/17/18 Aspirin [Ecotrin 81 mg EC Tablet] 81 mg PO QHS tabec 09/17/18 Ertapenem Sodium [Invanz Inj 1 gm Vial] 0.5 gm IV QAM vial 09/17/18 Heparin Sodium,Porcine [Heparin Inj 5,000 Units/ml 1 ml Syringe] 5,000 unit SUBCUT Q8 syringe 09/17/18 Ipratropium/Albuterol Sulfate [Duoneb 3 ml Ampul] 3 ml NEB RTQ8 vial.neb 09/17/18 Mag Hydrox/Al Hydrox/Simeth [Maalox Plus Susp 30 Udcup] 30 ml PO Q6HP PRN udc 09/17/18 Vancomycin HCl [Vancocin Inj 1000 mg Vial] 750 mg IV PDIA vial 09/17/18 Amox Tr/Potassium Clavulanate [Augmentin "500" Tablet] 1 tab PO Q8 #30 tablet 09/19/18 Cephalexin Monohydrate [Keflex 500 mg Capsule] 500 mg PO Q6H 7 Days capsule 12/02/18 Allergies/Adverse Reactions: ciprofloxacin [From Cipro] Allergy (Verified 01/14/19 18:11) Review of Systems ROS unobtainable: Due to mental status - Unobtainable Physical Exam Vital Signs: Temp Pulse Resp BP Pulse Ox 98.1 F 77 19 140/62 H 92 01/15/19 01:09 01/15/19 01:09 01/15/19 01:09 01/15/19 01:09 01/15/19 01:09 Intake & Output 01/13/19 01/14/19 01/15/19 11:59 11:59 11:59 Intake Total 200 Output Total 0 Balance 200 Weight 80.9 kg General appearance: PRESENT: cooperative, mild distress, well-developed, well-no urished Head exam: PRESENT: atraumatic, normocephalic Eye exam: PRESENT: conjunctiva pink, EOMI, PERRLA. ABSENT: scleral icterus Ear exam: PRESENT: normal external ear exam Mouth exam: PRESENT: moist, tongue midline Neck exam: ABSENT: carotid bruit, JVD, lymphadenopathy, thyromegaly Respiratory exam: PRESENT: crackles, decreased breath sounds, prolonged expiratory phas, retraction, rhonchi, tachypnea. ABSENT: accessory muscle use Cardiovascular exam: PRESENT: RRR. ABSENT: diastolic murmur, rubs, systolic murmur Pulses: PRESENT: normal dorsalis pedis pul Vascular exam: PRESENT: normal capillary refill GI/Abdominal exam: PRESENT: normal bowel sounds, soft. ABSENT: distended, guarding, mass, organolmegaly, rebound, tenderness Rectal exam: PRESENT: deferred Extremities exam: PRESENT: full ROM. ABSENT: calf tenderness, clubbing, pedal edema Neurological exam: PRESENT: awake, oriented to person, CN II-XII grossly intact. ABSENT: oriented to place, oriented to time, oriented to situation, motor sensory deficit Psychiatric exam: PRESENT: appropriate affect, normal mood. ABSENT: homicidal ideation, suicidal ideation Skin exam: PRESENT: dry, intact, warm. ABSENT: cyanosis, rash Results Laboratory Results: 01/14/19 19:30 01/14/19 19:30 01/14/19 01/14/19 01/14/19 19:30 19:30 19:30 WBC 8.0 RBC 4.13 L Hgb 13.0 L Hct 38.8 MCV 94 MCH 31.5 MCHC 33.6 RDW 14.7 H Plt Count 155 Seg Neutrophils % 84.8 H Lymphocytes % 8.0 L Monocytes % 6.4 Eosinophils % 0.1 Basophils % 0.7 Absolute Neutrophils 6.8 Absolute Lymphocytes 0.6 Absolute Monocytes 0.5 Absolute Eosinophils 0.0 Absolute Basophils 0.1 VBG pH 7.40 VBG pCO2 50.0 VBG HCO3 30.3 VBG Base Excess 4.5 Sodium 143.3 Potassium 5.4 H Chloride 102 Carbon Dioxide 25 Anion Gap 16 BUN 44 H Creatinine 3.89 H Est GFR ( Amer) 18 L Est GFR (Non-Af Amer) 15 L Glucose 119 H Lactic Acid Calcium 8.2 L Total Bilirubin 0.6 AST 22 ALT 17 L Alkaline Phosphatase 104 Total Protein 7.6 Albumin 4.4 Urine Color Urine Appearance Urine pH Ur Specific [place] Urine Protein Urine Glucose (UA) Urine Ketones Urine Blood Urine Nitrite Ur Leukocyte Esterase Urine WBC (Auto) Urine RBC (Auto) 01/14/19 01/14/19 19:39 20:16 WBC RBC Hgb Hct MCV MCH MCHC RDW Plt Count Seg Neutrophils % Lymphocytes % Monocytes % Eosinophils % Basophils % Absolute Neutrophils Absolute Lymphocytes Absolute Monocytes Absolute Eosinophils Absolute Basophils VBG pH VBG pCO2 VBG HCO3 VBG Base Excess Sodium Potassium Chloride Carbon Dioxide Anion Gap BUN Creatinine Est GFR ( Amer) Est GFR (Non-Af Amer) Glucose Lactic Acid 1.2 Calcium Total Bilirubin AST ALT Alkaline Phosphatase Total Protein Albumin Urine Color YELLOW Urine Appearance CLOUDY Urine pH 5.0 Ur Specific [place] 1.017 Urine Protein NEGATIVE Urine Glucose (UA) NEGATIVE Urine Ketones 80 H Urine Blood NEGATIVE Urine Nitrite NEGATIVE Ur Leukocyte Esterase MODERATE H Urine WBC (Auto) 7 Urine RBC (Auto) 2 Impressions: Chest X-Ray 01/14/19 19:09 IMPRESSION: Cannot exclude left lower lobe pneumonia. Assessment and Plan - Diagnosis (1) Left lower lobe pneumonia Qualifiers: Pneumonia type: due to unspecified organism Qualified Code(s): J18.1 - Lobar pneumonia, unspecified organism Is this a current diagnosis for this admission?: Yes Plan: Pneumonia care set deployed, incentive spirometry and flutter valve as mental status improves, follow-up CBC and blood culture (2) Altered mental status Qualifiers: Altered mental status type: delirium Qualified Code(s): R41.0 - Disorientation, unspecified Is this a current diagnosis for this admission?: Yes Plan: Likely delirium of acute illness. Supportive measures (3) ESRD (end stage renal disease) on dialysis Is this a current diagnosis for this admission?: Yes Plan: No evidence for hypervolemia, follow-up a.m. chemistry and nephrology consult. (4) Hyperkalemia Is this a current diagnosis for this admission?: Yes Plan: Without peak T waves or EKG changes, lactulose initiated, follow-up a.m. chemistry - Time Time Spent with patient: 35 or more minutes - Inpatient Certification Medical Necessity: Need Close Monitoring Due to Risk of Patient Decompensation
[2019-01-15 06:27] LABS: ABSOLUTE LYMPHOCYTES (AUTO) 0.4 10^3/uL (0.5-4.7); ABSOLUTE MONOCYTES (AUTO) 0.1 10^3/uL (0.1-1.4); ABSOLUTE NEUT (AUTO) 4.3 10^3/uL (1.7-8.2); BASOPHILS % (AUTO) 0.1 % (0-2); HEMATOCRIT 34.4 % (37.9-51.0); HEMOGLOBIN 11.5 g/dL (13.5-17.0); LYMPHOCYTES % (AUTO) 9.1 % (13-45); MEAN CORPUSCULAR HEMOGLOBIN 31.2 pg (27.0-33.4); MEAN CORPUSCULAR HGB CONC 33.5 g/dL (32.0-36.0); MEAN CORPUSCULAR VOLUME 93 fl (80-97); MONOCYTES % (AUTO) 1.1 % (3-13); PLATELET COUNT 129 10^3/uL (150-450); RED CELL DISTRIBUTION WIDTH 14.4 % (11.5-14.0); SEGMENTED NEUTROPHILS % (AUTO) 89.7 % (42-78); TOTAL CELLS COUNTED % (AUTO) 100 %; WHITE BLOOD COUNT 4.9 10^3/uL (4.0-10.5)
[2019-01-15 06:45] LABS: ANION GAP 13 (5-19); BLOOD UREA NITROGEN 51 mg/dL (7-20); CALCIUM 7.6 mg/dL (8.4-10.2); CARBON DIOXIDE 24 mmol/L (22-30); CHLORIDE 103 mmol/L (98-107); GLUCOSE 197 mg/dL (75-110); POTASSIUM 4.7 mmol/L (3.6-5.0); SODIUM 140.3 mmol/L (137-145)
[2019-01-15] MEDS: HEPARIN SOD (PORCINE) 5,000 UNIT/ML 1 ML SYRINGE SUBCUT SCH ×3 (06:59→21:18)
[2019-01-15] MEDS: IPRATROPIUM/ALBUTEROL 0.5-2.5 MG/3 ML AMPUL NEB SCH ×4 (08:28→23:42)
--- NOTE | 2019-01-15 17:33 | PDOC CONSULTATION ---
Consultation Consult Date: 01/15/19 Provider Consulted: Debbi RYAN Consult reason:: ESRD for HD History of Present Illness Admission Date/PCP: 01/14/19 22:32 [facility] History of Present Illness: TYLOR JIMENEZ is a 78 year old male with a past medical history of end-stage renal failure with hemodialysis Sunday, oxygen dependent COPD, hypertension, coronary artery disease, congestive heart failure, Urostomy presented with overnight history of confusion, fever, nonproductive cough and shortness of breath. In the emergency department he is found to have persistent fever 100.2, left lower lobe infiltrate and persistent confusion unable to assist with history. Patient has been admitted with a diagnosis of pneumonia needing inpatient treatment. Patient currently being seen while undergoing dialysis. Dialysis is being supervised. Patient is comfortable. He denies any history of chest pains or shortness of breath. Dialysis orders were reviewed with the treating dialysis nurse. Labs and medications were reviewed. Past Medical History Cardiac Medical History: Reports: Coronary Artery Disease, Hyperlipidemia, Hyp ertension-primary, Peripheral Vascular Disease Pulmonary Medical History: Reports: Chronic Obstructive Pulmonary Disease (COPD) - Possible Neurological Medical History: Denies: Seizures Renal/ Medical History: Reports: End Stage Renal Disease - On hemodialysis Sunday and Sunday, Hyperphosphatemia, Metabolic Acidosis, Recurrent UTI, Secondary Hyperparathyroidism Malignancy Medical History: Reports: Renal (Kidney) Cancer - Bladder and prostate cancer Musculoskeltal Medical History: Reports: Gout Psychiatric Medical History: Denies: Depression Infectious Medical History: Reports: 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 Hematology Medical History: Reports Anemia of Chronic Kidney Disease Past Surgical History Past Surgical History: Reports: Cardiac Catheterization, Coronary Artery Bypass Graft, Cystectomy - With urostomy bag in the right lower quadrant, Dialysis Access Surgery AVF, Orthopedic Surgery - Right hip hemiarthroplasty August 2016, Vascular Surgery - AAA repair, Other - Nephrostomy tube placement, creation of ileal conduit, prostatectomy Social History Lives with: Family Smoking Status: Former Smoker Frequency of Alcohol Use: None Hx Recreational Drug Use: No Drugs: None Hx Prescription Drug Abuse: No - Advance Directive Resuscitation Status: Full Code Family History Parental Family History Reviewed: No Children Family History Reviewed: No Sibling(s) Family History Reviewed.: No Medication/Allergy Home Medications: Atorvastatin Calcium [Lipitor 20 mg Tablet] 20 mg PO QHS 04/17/18 Calcium Carbonate [Tums Chewable 500 mg Tab.chew] 500 mg PO BID 04/17/18 Folic Acid/Vitamin B Comp W-C [Nephrocaps Multiple Vitamin Capsule] 1 cap PO QHS 04/17/18 Magnesium Oxide [Mag-Ox 400 mg Tablet] 400 mg PO DAILY 04/17/18 Multivit-Min/Folic/Vit K/Lycop [One-A-Day Men's 50 Plus Tablet] 1 each PO DAILY 04/17/18 Omeprazole 20 mg PO DAILY 04/17/18 Sodium Bicarbonate [Sodium Bicarbonate 650 mg Tablet] 650 mg PO Q12 04/17/18 Aspirin [Ecotrin 81 mg EC Tablet] 81 mg PO QHS tabec 09/17/18 Isosorbide Dinitrate [Isordil Titradose 20 Mg Tablet] 20 mg PO Q12 01/15/19 Allergies/Adverse Reactions: ciprofloxacin [From Cipro] Allergy (Verified 01/14/19 18:11) Review of Systems Constitutional: PRESENT: anorexia, fatigue, weakness. ABSENT: chills, fever(s), headache(s), night sweats Ears: PRESENT: hearing changes Nose, Mouth, and Throat: ABSENT: mouth pain, sore throat Cardiovascular: ABSENT: chest pain, dyspnea on exertion, edema, orthropnea, palpitations Respiratory: PRESENT: cough. ABSENT: dyspnea Gastrointestinal: ABSENT: abdominal pain, bloating, constipation, diarrhea, dysphagia, heartburn, hematemesis, hematochezia Genitourinary: ABSENT: dysuria, hematuria Musculoskeletal: ABSENT: back pain, deformity, joint swelling Integumentary: ABSENT: lesions, pruritus, rash Neurological: PRESENT: confusion. ABSENT: abnormal movements, abnormal speech, convulsions, focal weakness, frequent falls, numbness, vertigo Hematologic/Lymphatic: ABSENT: easy bleeding, easy bruising, lymphadenopathy Physical Exam Vital Signs: Temp Pulse Resp BP Pulse Ox 98.1 F 85 16 112/53 L 92 01/15/19 13:01 01/15/19 15:51 01/15/19 15:51 01/15/19 13:01 01/15/19 15:51 Intake & Output 01/14/19 01/15/19 01/16/19 06:59 06:59 06:59 Intake Total 200 Output Total 0 Balance 200 Weight 80.9 kg General appearance: PRESENT: no acute distress Eye exam: PRESENT: conjunctiva pink, EOMI, PERRLA Ear exam: PRESENT: normal external ear exam Mouth exam: PRESENT: moist, neck supple Neck exam: ABSENT: lymphadenopathy, meningismus, tenderness, thyromegaly, tracheal deviation Respiratory exam: PRESENT: clear to auscultation jenni. ABSENT: crackles Cardiovascular exam: PRESENT: +S1, +S2, systolic murmur GI/Abdominal exam: PRESENT: normal bowel sounds, soft. ABSENT: organomegaly, tenderness Extremities exam: ABSENT: pedal edema Neurological exam: PRESENT: alert, altered, awake, oriented to person, oriented to place Psychiatric exam: PRESENT: appropriate affect Skin exam: ABSENT: cyanosis, erythema, mottled, rash Results Laboratory Results: 01/15/19 05:37 01/15/19 05:37 01/14/19 01/14/19 01/14/19 19:30 19:30 19:30 WBC 8.0 RBC 4.13 L Hgb 13.0 L Hct 38.8 MCV 94 MCH 31.5 MCHC 33.6 RDW 14.7 H Plt Count 155 Seg Neutrophils % 84.8 H Lymphocytes % 8.0 L Monocytes % 6.4 Eosinophils % 0.1 Basophils % 0.7 Absolute Neutrophils 6.8 Absolute Lymphocytes 0.6 Absolute Monocytes 0.5 Absolute Eosinophils 0.0 Absolute Basophils 0.1 VBG pH 7.40 VBG pCO2 50.0 VBG HCO3 30.3 VBG Base Excess 4.5 Sodium 143.3 Potassium 5.4 H Chloride 102 Carbon Dioxide 25 Anion Gap 16 BUN 44 H Creatinine 3.89 H Est GFR ( Amer) 18 L Est GFR (Non-Af Amer) 15 L Glucose 119 H Lactic Acid Calcium 8.2 L Total Bilirubin 0.6 AST 22 ALT 17 L Alkaline Phosphatase 104 Total Protein 7.6 Albumin 4.4 Urine Color Urine Appearance Urine pH Ur Specific [place] Urine Protein Urine Glucose (UA) Urine Ketones Urine Blood Urine Nitrite Ur Leukocyte Esterase Urine WBC (Auto) Urine RBC (Auto) 01/14/19 01/14/19 01/15/19 19:39 20:16 05:37 WBC 4.9 RBC 3.70 L Hgb 11.5 L Hct 34.4 L MCV 93 MCH 31.2 MCHC 33.5 RDW 14.4 H Plt Count 129 L Seg Neutrophils % 89.7 H Lymphocytes % 9.1 L Monocytes % 1.1 L Eosinophils % 0.0 Basophils % 0.1 Absolute Neutrophils 4.3 Absolute Lymphocytes 0.4 L Absolute Monocytes 0.1 Absolute Eosinophils 0.0 Absolute Basophils 0.0 VBG pH VBG pCO2 VBG HCO3 VBG Base Excess Sodium Potassium Chloride Carbon Dioxide Anion Gap BUN Creatinine Est GFR ( Amer) Est GFR (Non-Af Amer) Glucose Lactic Acid 1.2 Calcium Total Bilirubin AST ALT Alkaline Phosphatase Total Protein Albumin Urine Color Urine Appearance Urine pH Ur Specific [place] Urine Protein Urine Glucose (UA) Urine Ketones Urine Blood Urine Nitrite Ur Leukocyte Esterase Urine WBC (Auto) Urine RBC (Auto) 01/15/19 05:37 WBC RBC Hgb Hct MCV MCH MCHC RDW Plt Count Seg Neutrophils % Lymphocytes % Monocytes % Eosinophils % Basophils % Absolute Neutrophils Absolute Lymphocytes Absolute Monocytes Absolute Eosinophils Absolute Basophils VBG pH VBG pCO2 VBG HCO3 VBG Base Excess Sodium 140.3 Potassium 4.7 Chloride 103 Carbon Dioxide 24 Anion Gap 13 BUN 51 H Creatinine 4.06 H Est GFR ( Amer) 17 L Est GFR (Non-Af Amer) 14 L Glucose 197 H Lactic Acid Calcium 7.6 L Total Bilirubin AST ALT Alkaline Phosphatase Total Protein Albumin Urine Color Urine Appearance Urine pH Ur Specific [place] Urine Protein Urine Glucose (UA) Urine Ketones Urine Blood Urine Nitrite Ur Leukocyte Esterase Urine WBC (Auto) Urine RBC (Auto) Impressions: Chest X-Ray 01/14/19 19:09 IMPRESSION: Cannot exclude left lower lobe pneumonia. Assessment & Plan - Diagnosis (1) Altered mental status Qualifiers: Altered mental status type: delirium Qualified Code(s): R41.0 - Disorientation, unspecified Is this a current diagnosis for this admission?: Yes Plan: Likely from his pneumonia. Management as per hospitalist. (2) ESRD (end stage renal disease) on dialysis Is this a current diagnosis for this admission?: Yes Plan: Patient currently being seen while undergoing dialysis. Vital signs are stable. Dialysis is being supervised to ensure safe and smooth procedure. Plan to remove between 1 and 2 L as tolerated. Dialysis orders were reviewed with the treating dialysis nurse. (3) Left lower lobe pneumonia Qualifiers: Pneumonia type: due to unspecified organism Qualified Code(s): J18.1 - Lobar pneumonia, unspecified organism Is this a current diagnosis for this admission?: Yes Plan: Currently on antibiotics. (4) Anemia in chronic kidney disease (CKD) Qualifiers: Chronic kidney disease stage: on chronic dialysis Qualified Code(s): N18.6 - End stage renal disease; D63.1 - Anemia in chronic kidney disease; D63.1 - Anemia in chronic kidney disease; Z99.2 - Dependence on renal dialysis; Z99.2 - Dependence on renal dialysis; Z99.2 - Dependence on renal dialysis; Z99.2 - Dependence on renal dialysis Plan: Stable. No indications for erythropoietin on dialysis today. (5) History of renal cell cancer Plan: Status quo.
--- NOTE | 2019-01-15 18:53 | PDOC PROGRESS REPORT ---
Subjective Progress Note for:: 01/15/19 Subjective:: TYLOR JIMENEZ is a 78 year old male with a past medical history of urostomy, end-stage renal failure with hemodialysis Sunday, oxygen dependent COPD, hypertension, coronary artery disease congestive heart failure who was admitted 01/14/2019 for left lower lobe pneumonia. Patient was seen on morning rounds. He was found resting in bed comfortably on supplemental oxygen via nasal cannula. He is alert and oriented to self and place, he is conversational socially appropriate though confused. It is unclear what his baseline mental status is. Unfortunately there are no family members present at this time. Patient does report continued productive cough but denies dyspnea at rest. He does asked to be discharged to home and cannot recall why he was brought into the hospital. He otherwise denies fever, chills, chest pain, palpitations, abdominal pain, nausea vomiting and diarrhea. He has no other questions or concerns at this time. No concerns per nursing. Reason For Visit: ESRD AND PNEUMONIA Physical Exam Vital Signs: Temp Pulse Resp BP Pulse Ox 98.2 F 98 18 117/57 L 94 01/15/19 16:12 01/15/19 17:20 01/15/19 16:12 01/15/19 17:20 01/15/19 16:12 Intake & Output 01/14/19 01/15/19 01/16/19 06:59 06:59 06:59 Intake Total 200 Output Total 0 3300 Balance 200 -3300 Weight 80.9 kg General appearance: PRESENT: no acute distress, cooperative, well-developed, well-nourished Head exam: PRESENT: atraumatic, normocephalic Eye exam: PRESENT: conjunctiva pink, EOMI, PERRLA. ABSENT: scleral icterus Ear exam: PRESENT: normal external ear exam Mouth exam: PRESENT: moist, tongue midline Neck exam: ABSENT: carotid bruit, JVD, lymphadenopathy, thyromegaly Respiratory exam: PRESENT: decreased breath sounds - Bibasilar, prolonged expiratory phas, rhonchi, symmetrical, unlabored, wheezes - Occasional, other - Supplemental oxygen by nasal cannula at 2 L/min. ABSENT: rales Cardiovascular exam: PRESENT: RRR, +S1, +S2. ABSENT: diastolic murmur, rubs, systolic murmur Pulses: PRESENT: normal dorsalis pedis pul Vascular exam: PRESENT: normal capillary refill GI/Abdominal exam: PRESENT: normal bowel sounds, soft. ABSENT: distended, guarding, mass, organolmegaly, rebound, tenderness Rectal exam: PRESENT: deferred Extremities exam: PRESENT: full ROM. ABSENT: calf tenderness, clubbing, pedal edema Neurological exam: PRESENT: alert, awake, oriented to person, oriented to place, CN II-XII grossly intact. ABSENT: oriented to time, oriented to situation, motor sensory deficit Psychiatric exam: PRESENT: appropriate affect, normal mood. ABSENT: homicidal ideation, suicidal ideation Skin exam: PRESENT: dry, intact, warm. ABSENT: cyanosis, rash Results Laboratory Results: 01/15/19 05:37 01/15/19 05:37 01/14/19 01/14/19 01/14/19 19:30 19:30 19:30 WBC 8.0 RBC 4.13 L Hgb 13.0 L Hct 38.8 MCV 94 MCH 31.5 MCHC 33.6 RDW 14.7 H Plt Count 155 Seg Neutrophils % 84.8 H Lymphocytes % 8.0 L Monocytes % 6.4 Eosinophils % 0.1 Basophils % 0.7 Absolute Neutrophils 6.8 Absolute Lymphocytes 0.6 Absolute Monocytes 0.5 Absolute Eosinophils 0.0 Absolute Basophils 0.1 VBG pH 7.40 VBG pCO2 50.0 VBG HCO3 30.3 VBG Base Excess 4.5 Sodium 143.3 Potassium 5.4 H Chloride 102 Carbon Dioxide 25 Anion Gap 16 BUN 44 H Creatinine 3.89 H Est GFR ( Amer) 18 L Est GFR (Non-Af Amer) 15 L Glucose 119 H Lactic Acid Calcium 8.2 L Total Bilirubin 0.6 AST 22 ALT 17 L Alkaline Phosphatase 104 Total Protein 7.6 Albumin 4.4 Urine Color Urine Appearance Urine pH Ur Specific Sagle Urine Protein Urine Glucose (UA) Urine Ketones Urine Blood Urine Nitrite Ur Leukocyte Esterase Urine WBC (Auto) Urine RBC (Auto) 01/14/19 01/14/19 01/15/19 19:39 20:16 05:37 WBC 4.9 RBC 3.70 L Hgb 11.5 L Hct 34.4 L MCV 93 MCH 31.2 MCHC 33.5 RDW 14.4 H Plt Count 129 L Seg Neutrophils % 89.7 H Lymphocytes % 9.1 L Monocytes % 1.1 L Eosinophils % 0.0 Basophils % 0.1 Absolute Neutrophils 4.3 Absolute Lymphocytes 0.4 L Absolute Monocytes 0.1 Absolute Eosinophils 0.0 Absolute Basophils 0.0 VBG pH VBG pCO2 VBG HCO3 VBG Base Excess Sodium Potassium Chloride Carbon Dioxide Anion Gap BUN Creatinine Est GFR ( Amer) Est GFR (Non-Af Amer) Glucose Lactic Acid 1.2 Calcium Total Bilirubin AST ALT Alkaline Phosphatase Total Protein Albumin Urine Color Urine Appearance Urine pH Ur Specific Sagle Urine Protein Urine Glucose (UA) Urine Ketones Urine Blood Urine Nitrite Ur Leukocyte Esterase Urine WBC (Auto) Urine RBC (Auto) 01/15/19 05:37 WBC RBC Hgb Hct MCV MCH MCHC RDW Plt Count Seg Neutrophils % Lymphocytes % Monocytes % Eosinophils % Basophils % Absolute Neutrophils Absolute Lymphocytes Absolute Monocytes Absolute Eosinophils Absolute Basophils VBG pH VBG pCO2 VBG HCO3 VBG Base Excess Sodium 140.3 Potassium 4.7 Chloride 103 Carbon Dioxide 24 Anion Gap 13 BUN 51 H Creatinine 4.06 H Est GFR ( Amer) 17 L Est GFR (Non-Af Amer) 14 L Glucose 197 H Lactic Acid Calcium 7.6 L Total Bilirubin AST ALT Alkaline Phosphatase Total Protein Albumin Urine Color Urine Appearance Urine pH Ur Specific Sagle Urine Protein Urine Glucose (UA) Urine Ketones Urine Blood Urine Nitrite Ur Leukocyte Esterase Urine WBC (Auto) Urine RBC (Auto) Impressions: Chest X-Ray 01/14/19 19:09 IMPRESSION: Cannot exclude left lower lobe pneumonia. Assessment and Plan - Diagnosis (1) Left lower lobe pneumonia Qualifiers: Pneumonia type: due to unspecified organism Qualified Code(s): J18.1 - Lobar pneumonia, unspecified organism Is this a current diagnosis for this admission?: Yes Plan: Blood and sputum cultures pending. Patient is admitted to the medical floor and continuous cardiac telemetry. He is empirically placed on IV azithromycin and Rocephin for treatment of a community-acquired pneumonia; continue escalation of antibiotics if he does not show rapid improvement as the patient is a hemodialysis patient. He is provided scheduled and as needed nebulizer treatments. Mucinex twice daily with Robitussin as needed. Incentive spirometer and flutter valve to bedside. (2) Altered mental status Qualifiers: Altered mental status type: delirium Qualified Code(s): R41.0 - Disorien tation, unspecified Is this a current diagnosis for this admission?: Yes Plan: Likely delirium of acute illness. Supportive measures Fall precautions. Treatment for pneumonia as above. (3) ESRD (end stage renal disease) on dialysis Is this a current diagnosis for this admission?: Yes Plan: Patient receives hemodialysis on Sunday schedule. Nephrology is consulted; plans for dialysis today. (4) Hyperkalemia Is this a current diagnosis for this admission?: Yes Plan: Resolved. Without peak T waves or EKG changes Lactulose x1 last night. Hemodialysis per nephrology's expertise. Monitor daily chemistries. (5) Anemia in chronic kidney disease (CKD) Qualifiers: Chronic kidney disease stage: on chronic dialysis Qualified Code(s): N18.6 - End stage renal disease; D63.1 - Anemia in chronic kidney disease; D63.1 - Anemia in chronic kidney disease; Z99.2 - Dependence on renal dialysis; Z99.2 - Dependence on renal dialysis; Z99.2 - Dependence on renal dialysis; Z99.2 - Dependence on renal dialysis Is this a current diagnosis for this admission?: Yes Plan: Patient with anemia of chronic disease. Hemoglobin at baseline; 11.5 today. No evidence of acute bleeding. We will continue to monitor. Nephrology is consulted. - Time Time Spent with patient: 25-34 minutes Medications reviewed and adjusted accordingly: Yes Anticipated discharge: Home with Homehealth Within: within 72 hours
--- NOTE | 2019-01-15 18:54 | Progress Note Acknowledgement ---
Progress Note Acknowledgement Progess Note Acknowledgement: I, the undersigned member of the medical staff with appropriate privileges and with supervisory authority over Cielo Mejia, a [facility] practice allied health professional, acknowledge that I have reviewed the progress notes entered on this patient, and in my professional judgment believe that the assessment made and/or any care evidenced was appropriate
[2019-01-15] MEDS: ISOSORBIDE DINITRATE 20 MG TABLET PO SCH (21:22)
[2019-01-15] MEDS: SODIUM BICARBONATE 650 MG TABLET PO SCH (21:23)
[2019-01-15] MEDS: GUAIFENESIN 600 MG TABLET.SA PO SCH (21:23)
[2019-01-15] MEDS ORDERED: CEFTRIAXONE SODIUM 1,000 MG in DEXTROSE 5%-WATER 50 ML IV SCH (22:00)
[2019-01-15] MEDS ORDERED: FOLIC ACID/VITAMIN B COMP W-C CAPSULE PO SCH (22:00)
[2019-01-15] MEDS ORDERED: AZITHROMYCIN 500 MG in DEXTROSE 5%-WATER 250 ML IV SCH (22:00)
[2019-01-15] MEDS ORDERED: CEFTRIAXONE 1 GM/D5W RTU 1 GM/50 ML RTUPB IV SCH (22:00)
[2019-01-15] MEDS ORDERED: ATORVASTATIN CALCIUM 20 MG TABLET PO SCH (22:00)
[2019-01-16 05:06] LABS: HEMATOCRIT 35.1 % (37.9-51.0); HEMOGLOBIN 11.7 g/dL (13.5-17.0); MEAN CORPUSCULAR HEMOGLOBIN 31.1 pg (27.0-33.4); MEAN CORPUSCULAR HGB CONC 33.4 g/dL (32.0-36.0); MEAN CORPUSCULAR VOLUME 93 fl (80-97); PLATELET COUNT 147 10^3/uL (150-450); RED BLOOD COUNT 3.76 10^6/uL (4.35-5.55); RED CELL DISTRIBUTION WIDTH 14.1 % (11.5-14.0); WHITE BLOOD COUNT 9.6 10^3/uL (4.0-10.5)
[2019-01-16] MEDS: HEPARIN SOD (PORCINE) 5,000 UNIT/ML 1 ML SYRINGE SUBCUT SCH (05:16)
[2019-01-16 05:28] LABS: ANION GAP 14 (5-19); BLOOD UREA NITROGEN 46 mg/dL (7-20); CALCIUM 7.9 mg/dL (8.4-10.2); CARBON DIOXIDE 29 mmol/L (22-30); CHLORIDE 97 mmol/L (98-107); GLUCOSE 118 mg/dL (75-110); POTASSIUM 4.2 mmol/L (3.6-5.0); SODIUM 139.8 mmol/L (137-145)
[2019-01-16] MEDS: IPRATROPIUM/ALBUTEROL 0.5-2.5 MG/3 ML AMPUL NEB SCH (08:11)
[2019-01-16] MEDS ORDERED: CALCIUM CARBONATE 500 MG TAB.CHEW PO SCH (10:00)
[2019-01-16] MEDS ORDERED: MAGNESIUM OXIDE 400 MG TABLET PO SCH (10:00)
[2019-01-16] MEDS ORDERED: (PENDING PHARMACY ID) (Multivit-Min/Folic/Vit K/Lycop [One-A-Day Men's 50 Plus Tablet] 1 E PO SCH (10:00)
[2019-01-16] MEDS ORDERED: MULTIVITAMIN TABLET PO SCH (10:00)
[2019-01-16] MEDS ORDERED: PANTOPRAZOLE SODIUM 20 MG TABLET.DR PO SCH (10:00)
[2019-01-16] MEDS: ISOSORBIDE DINITRATE 20 MG TABLET PO SCH (10:08)
[2019-01-16] MEDS: SODIUM BICARBONATE 650 MG TABLET PO SCH (10:08)
[2019-01-16] MEDS: GUAIFENESIN 600 MG TABLET.SA PO SCH (10:09)
[2019-01-16 12:12] VITALS: BP 105/49
--- NOTE | 2019-01-21 14:08 | PDOC DISCHARGE SUMMARY ---
General - Admit/Disc Date/PCP Admission Date/Primary Care Provider: 01/14/19 22:32 [facility] Discharge Date: 01/16/19 - Discharge Diagnosis (1) Left lower lobe pneumonia Is this a current diagnosis for this admission?: Yes Summary: Blood cultures are negative (final) Sputum culture not obtained; patient did not produce sample. Patient was admitted to the medical floor on continuous cardiac telemetry. He was empirically placed on IV azithromycin and Rocephin for treatment of a c ommunity-acquired pneumonia. He was provided scheduled and as needed nebulizer treatments, Mucinex twice daily with Robitussin as needed. Encouraged pulmonary toilet with incentive spirometer and flutter valve to bedside. Patient's symptoms rapidly improved. He is discharged to home in stable condition. He is advised to follow up with his PCP within 1 week. He is instructed to resume his normal dialysis schedule. Patient is encouraged to return to the emergency department as needed for concerning symptoms. (2) Altered mental status Is this a current diagnosis for this admission?: Yes Summary: Resolved; now at baseline per family. Likely delirium of acute illness. Supportive measures (3) ESRD (end stage renal disease) on dialysis Is this a current diagnosis for this admission?: Yes Summary: Patient receives hemodialysis on Sunday schedule. Nephrology was consulted and he did receive dialysis while admitted. He is to resume his normal dialysis schedule following discharge. (4) Hyperkalemia Is this a current diagnosis for this admission?: Yes Summary: Resolved. Without peak T waves or EKG changes Lactulose x1 last night. Hemodialysis per nephrology's expertise. (5) Anemia in chronic kidney disease (CKD) Is this a current diagnosis for this admission?: Yes Summary: Patient with anemia of chronic disease. Hemoglobin at baseline; 11.5 today. No evidence of acute bleeding. - Additional Information Resuscitation Status: Full Code Discharge Diet: Cardiac, Other (Comments) - Dialysis Discharge Activity: Activity As Tolerated, Balance Activity w/Rest Prescriptions: Guaifenesin [Mucinex Sr 600 mg Tablet.sa] 600 mg PO Q12 #14 tablet.sa Levofloxacin [Levaquin 500 mg Tablet] 500 mg PO Q48H #4 tablet Home Medications: Atorvastatin Calcium [Lipitor 20 mg Tablet] 20 mg PO QHS 04/17/18 Calcium Carbonate [Tums Chewable 500 mg Tab.chew] 500 mg PO BID 04/17/18 Folic Acid/Vitamin B Comp W-C [Nephrocaps Multiple Vitamin Capsule] 1 cap PO QHS 04/17/18 Magnesium Oxide [Mag-Ox 400 mg Tablet] 400 mg PO DAILY 04/17/18 Multivit-Min/Folic/Vit K/Lycop [One-A-Day Men's 50 Plus Tablet] 1 each PO DAILY 04/17/18 Omeprazole 20 mg PO DAILY 04/17/18 Sodium Bicarbonate [Sodium Bicarbonate 650 mg Tablet] 650 mg PO Q12 04/17/18 Aspirin [Ecotrin 81 mg EC Tablet] 81 mg PO QHS tabec 09/17/18 Isosorbide Dinitrate [Isordil Titradose 20 mg Tablet] 20 mg PO Q12 01/15/19 Acetaminophen [Tylenol 325 mg Tablet] 650 mg PO Q4HP PRN tablet 01/16/19 Guaifenesin [Mucinex Sr 600 mg Tablet.sa] 600 mg PO Q12 #14 tablet.sa 01/16/19 Levofloxacin [Levaquin 500 mg Tablet] 500 mg PO Q48H #4 tablet 01/16/19 History of Present Illness History of Present Illness: Per H&P by Dr. Castillo: TYLOR JIMENEZ is a 78 year old male with a past medical history of urostomy, end-stage renal failure with hemodialysis Sunday, oxygen dependent COPD, hypertension, coronary artery disease congestive heart failure who presents with 12 hours of confusion, fever, nonproductive cough and shortness of breath. In the emergency department he is found to have persistent fever 100.2, left lower lobe infiltrate and persistent confusion unable to assist with history. As his son has subsequently left the emergency department his history is obtained by the record. Patient is started on supplemental oxygen, empiric antibiotics, albuterol and Atrovent and referred to the hospitalist for admission Physical Exam Vital Signs: Temp Pulse Resp BP Pulse Ox 97.6 F 81 16 107/52 L 94 01/15/19 23:35 01/16/19 08:11 01/16/19 08:11 01/15/19 23:35 01/16/19 08:11 Intake & Output 01/15/19 01/16/19 01/17/19 06:59 06:59 06:59 Intake Total 200 2106 Output Total 0 3500 Balance 200 -1394 Weight 80.9 kg 82.1 kg General appearance: PRESENT: no acute distress, well-developed, well-nourished Head exam: PRESENT: atraumatic, normocephalic Eye exam: PRESENT: conjunctiva pink, EOMI, PERRLA. ABSENT: scleral icterus Ear exam: PRESENT: normal external ear exam Mouth exam: PRESENT: moist, tongue midline Neck exam: ABSENT: carotid bruit, JVD, lymphadenopathy, thyromegaly Respiratory exam: PRESENT: clear to auscultation jenni, other - baseline O2 requi rement. ABSENT: rales, rhonchi, wheezes Cardiovascular exam: PRESENT: RRR. ABSENT: diastolic murmur, rubs, systolic murmur Pulses: PRESENT: normal dorsalis pedis pul Vascular exam: PRESENT: normal capillary refill GI/Abdominal exam: PRESENT: normal bowel sounds, soft. ABSENT: distended, guarding, mass, organolmegaly, rebound, tenderness Rectal exam: PRESENT: deferred Extremities exam: PRESENT: full ROM. ABSENT: calf tenderness, clubbing, pedal edema Neurological exam: PRESENT: alert, awake, oriented to person, oriented to place, oriented to time, oriented to situation, CN II-XII grossly intact. ABSENT: motor sensory deficit Psychiatric exam: PRESENT: appropriate affect, normal mood. ABSENT: homicidal ideation, suicidal ideation Skin exam: PRESENT: dry, intact, warm. ABSENT: cyanosis, rash Results Laboratory Results: 01/16/19 04:18 01/16/19 04:18 01/16/19 01/16/19 04:18 04:18 WBC 9.6 RBC 3.76 L Hgb 11.7 L Hct 35.1 L MCV 93 MCH 31.1 MCHC 33.4 RDW 14.1 H Plt Count 147 L Sodium 139.8 Potassium 4.2 Chloride 97 L Carbon Dioxide 29 Anion Gap 14 BUN 46 H Creatinine 3.95 H Est GFR ( Amer) 18 L Est GFR (Non-Af Amer) 15 L Glucose 118 H Calcium 7.9 L Impressions: Chest X-Ray 01/14/19 19:09 IMPRESSION: Cannot exclude left lower lobe pneumonia. Qualifiers - * PATIENT BEING DISCHARGED WITH ANY OF THE FOLLOWING DIAGNOSIS: No Acute Heart Failure - Is this a Heart Failure Patient?: No Plan Discharge Plan: Follow up with your primary care provider within 1 week. Take your medications as prescribed. Continue your normal dialysis schedule. Sunday,Sunday,Sunday Return to the emergency department as needed for concerning symptoms. Time Spent: Greater than 30 Minutes
== END 2019-01-16 12:41 | disposition home or self-care (01) | DRG 193 ==
LOC: ER 18:10 → EH 22:32 → 4N 01-15 01:08
PROVIDERS: ADMIT Internal Medicine; ATTEND Internal Medicine
PROC: 5A1D70Z Performance of Urinary Filtration, Intermittent, Less than 6 Hours Per Day (ICD-10-PCS; principal; 2019-01-15)
DX: J18.9 Pneumonia, unspecified organism (principal); N18.6 End stage renal disease; I13.2 Hypertensive heart and chronic kidney disease with heart failure and with stage 5 chronic kidney disease, or end stage renal disease; Z99.2 Dependence on renal dialysis; E87.5 Hyperkalemia; J44.9 Chronic obstructive pulmonary disease, unspecified; Z93.6 Other artificial openings of urinary tract status; I25.10 Atherosclerotic heart disease of native coronary artery without angina pectoris; D63.1 Anemia in chronic kidney disease; I50.9 Heart failure, unspecified; Z87.891 Personal history of nicotine dependence; Z95.1 Presence of aortocoronary bypass graft; Z99.81 Dependence on supplemental oxygen; E11.51 Type 2 diabetes mellitus with diabetic peripheral angiopathy without gangrene; Z85.528 Personal history of other malignant neoplasm of kidney; Z96.641 Presence of right artificial hip joint; Z79.82 Long term (current) use of aspirin; Z79.899 Other long term (current) drug therapy; Z85.46 Personal history of malignant neoplasm of prostate; Z88.3 Allergy status to other anti-infective agents
CPT/HCPCS: 36415; 71045; 80048; 80053; 81001; 82803; 83605; 85025; 85027; 87040; 87086; 87088; 87186; 94640; 94667; 94668; 94799; 96365; 96375; 99285; J0456; J0696; J1644; J2930; J3490; J7030; J7060; J7620

== ENCOUNTER 2019-04-21 17:33 | Inpatient (IN) | payer OTHER, MEDICARE ==
[2019-04-21] MEDS ORDERED: ALBUTEROL SULFATE 0.083% NEB 2.5 MG/3 ML AMPUL NEB ONE (18:34)
--- NOTE | 2019-04-21 18:38 | ER Document Report ---
ED General - General Chief Complaint: Fever Stated Complaint: ALTERED MENTAL STATUS Time Seen by Provider: 04/21/19 18:16 Primary Care Provider: FRANCINE,ANTONIO [Primary Care Provider] - Follow up as needed Notes: 78-year-old male brought in by ambulance from hemodialysis for a fever. Patient apparently had a cough at home this morning but was acting normally and was able to take the bus by himself to dialysis, after leaving dialysis he apparently sat outside for 2 to 3 hours before the dialysis center staff noticed that he was still sitting there and that this was abnormal, they checked him and found that he was not as oriented as usual and they had a fever so they spoke with his son who said to send him here. Patient does not answer any my questions. Son states that whenever he has a fever this would usually acts like it usually comes from his urine although sometimes it is from his lungs. This morning they noticed that he had a strong productive cough and they treated him with cough drops but otherwise he was normal. They deny any vomiting, admits some diarrhea yesterday but they think that may have been due to fried chicken. TRAVEL OUTSIDE OF THE [place] IN LAST 30 DAYS: No - Related Data Allergies/Adverse Reactions: ciprofloxacin [From Cipro] Allergy (Verified 01/14/19 18:11) Past Medical History - General Information source: Relative - Social History Smoking Status: Former Smoker Chew tobacco use (# tins/day): No Frequency of alcohol use: None Drug Abuse: None Lives with: Family Family History: Malignancy - Bladder cancer, has urostomy. Patient has suicidal ideation: No Patient has homicidal ideation: No - Past Medical History Cardiac Medical History: Reports: Hx Congestive Heart Failure, Hx Coronary Artery Disease, Hx Hypercholesterolemia, Hx Hypertension, Hx Peripheral Vascular Disease Pulmonary Medical History: Reports: Hx COPD - Possible Neurological Medical History: Denies: Hx Cerebrovascular Accident, Hx Seizures Renal/ Medical History: Reports: Hx End Stage Renal Disease - On hemodialysis Sunday and Sunday with Dr. Cespedes.. Denies: Hx Peritoneal Dialysis Malignancy Medical History: Reports Hx Renal (Kidney) Cancer - Bladder and prostate cancer Musculoskeletal Medical History: Reports Hx Gout Psychiatric Medical History: Denies: Hx Depression Infectious Medical History: Reports: Hx C-Diff - Status post fecal transplant Past Surgical History: Reports: Hx Cardiac Catheterization, Hx Cardiac Surgery - CABG, Hx Coronary Artery Bypass Graft, Hx Genitourinary Surgery - urostomy, Hx Orthopedic Surgery - Right hip hemiarthroplasty August 2016, Hx Urinary Tract Surgery - bladder /prostate, Hx Vascular Surgery - AAA repair, Other - Nephrostomy tube placement, creation of ileal conduit, prostatectomy - Immunizations Immunizations up to date: Yes Hx Diphtheria, Pertussis, Tetanus Vaccination: Yes Hx Pneumococcal Vaccination: 04/17/14 Review of Systems - Review of Systems -: Yes ROS unobtainable due to patient's medical condition - Patient does not answer any questions. Constitutional: Fever Physical Exam - Vital signs Vitals: Temp Pulse Resp BP Pulse Ox 103.1 F H 96 15 137/68 H 94 04/21/19 17:40 04/21/19 17:40 04/21/19 17:40 04/21/19 17:40 04/21/19 17:40 Interpretation: Febrile - Notes Notes: GENERAL: Sitting up in bed, makes eye contact, will not speak or answer questions. Hard of hearing, No acute distress. HEAD: Normocephalic, atraumatic EYES: Pupils equal, round and reactive to light, extraocular movements intact. ENT: Oral mucosa moist, tongue midline. NECK: Full range of motion, supple, trachea midline. LUNGS: Diffuse moderate expiratory wheezing, no rales or rhonchi, no decreased air movement, no respiratory distress. HEART: Regular rate and rhythm, no murmurs, gallops, rubs. ABDOMEN: Soft, nontender, nondistended, bowel sounds present in all 4 quadrants. EXTREMITIES: Moves all 4 extremities spontaneously, no edema, AV fistula with palpable thrill left forearm and AC, nontender. No cyanosis. NEUROLOGICAL: Awake, follows my commands to sit up and squeeze my hands, otherwise does not interact, does not speak or answer questions, no facial droop, biceps and patellar DTRs 2+ bilaterally. SKIN: Warm, Dry, normal turgor, no rashes or lesions noted. Course - Re-evaluation Re-evalutation: 04/21/19 22:19 CBC shows leukocytosis of 12.6, mild anemia, coags normal, blood gas unremarkable, CMP shows chronic renal failure with a BUN of 25 and creatinine of 3, just had dialysis today, lactic acid elevated at 2.8, troponin indeterminate 0.055, urinalysis shows large leukocyte esterase, 1+ bacteria, blood and urine cultures have been sent. EKG is nonischemic. Chest x-ray is pending. Patient has been given Rocephin for antibiotic coverage. Discussed with Dr. Izaguirre who asked me to discuss it with the credit front office developer, credit front office developer Dr. Bain feels the patient can likely go to IMCU based off of my description. Patient has had 2 episodes of hypotension that have completely resolved on their own and he has never been tachycardic or hypoxic. I do agree with placing patient on IMCU at this time. Dr. Izaguirre agrees to accept the patient to the IMCU. - Vital Signs Vital signs: Temp Pulse Resp BP Pulse Ox 99.3 F 96 19 99/53 L 94 04/21/19 20:38 04/21/19 17:40 04/21/19 21:01 04/21/19 21:01 04/21/19 21:01 - Laboratory Result Diagrams: 04/21/19 17:52 04/21/19 17:52 Laboratory results interpreted by me: 04/21/19 04/21/19 04/21/19 17:52 17:52 17:52 WBC 12.6 H RBC 3.88 L Hgb 12.2 L Hct 36.6 L Lymph % (Auto) 5.1 L Absolute Neuts (auto) 11.1 H Seg Neutrophils % 88.0 H Sodium 135.0 L Chloride 93 L BUN 25 H Creatinine 3.00 H Est GFR ( Amer) 25 L Est GFR (MDRD) Non-Af 20 L Glucose 166 H POC Glucose Lactic Acid Urine Protein 30 H Urine Urobilinogen 2.0 H Ur Leukocyte Esterase LARGE H 04/21/19 04/21/19 17:52 18:23 WBC RBC Hgb Hct Lymph % (Auto) Absolute Neuts (auto) Seg Neutrophils % Sodium Chloride BUN Creatinine Est GFR ( Amer) Est GFR (MDRD) Non-Af Glucose POC Glucose 159 H Lactic Acid 2.8 H Urine Protein Urine Urobilinogen Ur Leukocyte Esterase - EKG Interpretation by Me Additional EKG results interpreted by me: 04/21/19 22:20 EKG shows sinus rhythm rate of 87, first-degree AV block, normal axis, no ST segment elevations or depressions, no T wave inversions per my interpretation. Discharge - Discharge Clinical Impression: End-stage renal disease on hemodialysis UTI (urinary tract infection) Qualifiers: Urinary tract infection type: acute pyelonephritis Qualified Code(s): N10 - Acute pyelonephritis Fever Qualifiers: Fever type: due to other condition Qualified Code(s): R50.81 - Fever presenting with conditions classified elsewhere Altered mental status Qualifiers: Altered mental status type: transient alteration of awareness Qualified Code(s): R40.4 - Transient alteration of awareness Condition: Fair Disposition: ADMITTED INPATIENT Admitting Provider: Zina (Hospitalist) Unit Admitted: IMCU [facility] [Primary [facility]] - Follow up as needed
[2019-04-21 18:40] LABS: ABSOLUTE EOSINOPHILS # (AUTO) 0.1 10^3/uL (0.0-0.6); ABSOLUTE LYMPHOCYTES (AUTO) 0.6 10^3/uL (0.5-4.7); ABSOLUTE MONOCYTES (AUTO) 0.8 10^3/uL (0.1-1.4); ABSOLUTE NEUT (AUTO) 11.1 10^3/uL (1.7-8.2); BASOPHILS % (AUTO) 0.3 % (0-2); EOSINOPHILS % (AUTO) 0.4 % (0-6); HEMATOCRIT 36.6 % (37.9-51.0); HEMOGLOBIN 12.2 g/dL (13.5-17.0); LYMPHOCYTES % (AUTO) 5.1 % (13-45); MEAN CORPUSCULAR HEMOGLOBIN 31.4 pg (27.0-33.4); MEAN CORPUSCULAR HGB CONC 33.3 g/dL (32.0-36.0); MEAN CORPUSCULAR VOLUME 94 fl (80-97); MONOCYTES % (AUTO) 6.2 % (3-13); PLATELET COUNT 157 10^3/uL (150-450); RED BLOOD COUNT 3.88 10^6/uL (4.35-5.55); RED CELL DISTRIBUTION WIDTH 13.3 % (11.5-14.0); TOTAL CELLS COUNTED % (AUTO) 100 %; WHITE BLOOD COUNT 12.6 10^3/uL (4.0-10.5)
[2019-04-21 18:44] LABS: VENOUS BLOOD BASE EXCESS 1.6 mmol/L; VENOUS BLOOD PCO2 44.4 mmHg (35-63); VENOUS BLOOD PH 7.4 (7.30-7.42)
[2019-04-21 18:45] LABS: INTERNATIONAL RATION (INR) 1.08
[2019-04-21 18:48] LABS: AMORPHOUS SEDIMENT,URINE TRACE /HPF; APPEARANCE,URINE CLOUDY; BILIRUBIN,URINE NEGATIVE (NEGATIVE); COLOR,URINE AMBER; GLUCOSE, URINE NEGATIVE (NEGATIVE); KETONES,URINE NEGATIVE (NEGATIVE); LEUKOCYTE ESTERASE,URINE LARGE (NEGATIVE); NITRITE,URINE NEGATIVE (NEGATIVE); PROTEIN,URINE 30 mg/dL (NEGATIVE); URINE SPECIFIC GRAVITY 1.014
[2019-04-21 18:51] LABS: ALBUMIN 4.3 g/dL (3.5-5.0); ALKALINE PHOSPHATASE 94 U/L (38-126); ANION GAP 12 (5-19); ASPARTATE AMINO TRANSFERASE 30 U/L (17-59); BILIRUBIN,DIRECT 0.3 mg/dL (0.0-0.4); BILIRUBIN,TOTAL 0.9 mg/dL (0.2-1.3); BLOOD UREA NITROGEN 25 mg/dL (7-20); CALCIUM 8.5 mg/dL (8.4-10.2); CARBON DIOXIDE 30 mmol/L (22-30); CHLORIDE 93 mmol/L (98-107); GLUCOSE 166 mg/dL (75-110); POTASSIUM 4.9 mmol/L (3.6-5.0); TOTAL PROTEIN 7.6 g/dL (6.3-8.2)
[2019-04-21] MEDS ORDERED: CEFTRIAXONE 1 GM/D5W RTU 1 GM/50 ML RTUPB IV ONE (21:54)
--- NOTE | 2019-04-21 22:48 | RADIOLOGY REPORT (SQ) ---
EXAM DESCRIPTION: XR CHEST 1 VIEW COMPLETED DATE/TME: 04/21/2019 22:01 CLINICAL HISTORY: 78 years, Male, fever, AMS COMPARISON: Prior study from 01/14/2019 NUMBER OF VIEWS: One TECHNIQUE: Single frontal view of the chest was obtained portably. LIMITATIONS: None. FINDINGS: Status post median sternotomy. Cardiac and mediastinal contours are stable. Lungs are clear. No pleural effusion or pneumothorax. A moderately sized hiatal hernia is noted. IMPRESSION: No acute disease. copyright 2010 [employer]- All Rights Reserved
--- NOTE | 2019-04-21 23:02 | PDOC H&P ---
History of Present Illness Admission Date/PCP: 05/01/2019 20:01 [facility] Patient complains of: Acute confusion History of Present Illness: TYLOR KINGSTON is a 78 year old male who presented to the emergency room with acute confusion. His son brought him to the emergency room and answers qu estions as his father is unable to participate in his historical record due to his acute encephalopathy. His son relates that the patient went to dialysis as usual earlier today and after completing dialysis left the dialysis center but was sitting outside for 2 to 3 hours when the dialysis staff went out to speak with him and found that he was disoriented and had a fever. He was subsequently transported to the emergency room by his son for evaluation. His son admits prior similar episodes usually resulting from a urinary tract infection or a pulmonary infection. His son relates that the dialysis staff noted that he had a cough this morning and took some cough drops and he also had an episode of diarrhea yesterday after eating fried foods which is not uncommon for him. His son has not identified any additional associated or accompanying signs or symptoms, nor has he identified any additional aggravating or ameliorating factors for his father's confusion. In the emergency room the patient was found to be febrile with a fever of 103.1 F and had an elevated white blood count at 12,600 with modest hypotension (MAP of 63 and 68) and an elevated serum lactate. Patient was subsequently admitted to [facility] for treatment of his severe sepsis. Past Medical History Cardiac Medical History: Reports: Congestive Heart Failure, Coronary Artery Dise ase, Hyperlipidema, Hypertension, Peripheral Vascular Disease Pulmonary Medical History: Reports: Chronic Obstructive Pulmonary Disease (COPD) - Possible, Pneumonia EENT Medical History: Denies: Cataracts, Ears - Hearing aids Neurological Medical History: Denies: Hemorrhagic CVA, Ischemic CVA, Seizures Endocrine Medical History: Denies: Diabetes Mellitus Type 1, Diabetes Mellitus Type 2, Hyperthyroidism, Hypothyroidism, Obesity Renal/ Medical History: Reports: End Stage Renal Disease - On hemodialysis Sunday and Sunday with Dr. 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 Past Surgical History Past Surgical History: Reports: Cardiac Catheterization, Coronary Artery Bypass Graft, Orthopedic Surgery - Right hip hemiarthroplasty August 2016, Vascular Surgery - AAA repair, Other - Nephrostomy tube placement, creation of ileal conduit, prostatectomy Social History Information Source: Relative Lives with: Family Smoking Status: Former Smoker Electronic Cigarette use?: No Frequency of Alcohol Use: None Hx Recreational Drug Use: No Drugs: None Hx Prescription Drug Abuse: No - Advance Directive Resuscitation Status: Full Code Surrogate healthcare decision maker:: Chino Kingston Family History Family History: Malignancy - Bladder cancer, has urostomy. Parental Family History Reviewed: Yes Children Family History Reviewed: No Sibling(s) Family History Reviewed.: Yes Medication/Allergy Home Medications: Atorvastatin Calcium [Lipitor 20 mg Tablet] 20 mg PO QHS 04/17/18 Calcium Carbonate [Tums Chewable 500 mg Tab.chew] 500 mg PO BID 04/17/18 Folic Acid/Vitamin B Comp W-C [Nephrocaps Multiple Vitamin Capsule] 1 cap PO QHS 04/17/18 Magnesium Oxide [Mag-Ox 400 mg Tablet] 400 mg PO DAILY 04/17/18 Multivit-Min/Folic/Vit K/Lycop [One-A-Day Men's 50 Plus Tablet] 1 each PO DAILY 04/17/18 Omeprazole 20 mg PO DAILY 04/17/18 Sodium Bicarbonate [Sodium Bicarbonate 650 mg Tablet] 650 mg PO Q12 04/17/18 Aspirin [Ecotrin 81 mg EC Tablet] 81 mg PO QHS tabec 09/17/18 Isosorbide Dinitrate [Isordil Titradose 20 mg Tablet] 20 mg PO Q12 01/15/19 Acetaminophen [Tylenol 325 mg Tablet] 650 mg PO Q4HP PRN tablet 01/16/19 Guaifenesin [Mucinex Sr 600 mg Tablet.sa] 600 mg PO Q12 #14 tablet.sa 01/16/19 Levofloxacin [Levaquin 500 mg Tablet] 500 mg PO Q48H #4 tablet 01/16/19 Allergies/Adverse Reactions: ciprofloxacin [From Cipro] Allergy (Verified 01/14/19 18:11) Review of Systems ROS unobtainable: Due to mental status - Acute encephalopathy Physical Exam Vital Signs: Temp Pulse Resp BP Pulse Ox 99.3 F 96 19 99/53 L 94 04/21/19 20:38 04/21/19 17:40 04/21/19 21:01 04/21/19 21:01 04/21/19 21:01 Intake & Output 04/19/19 04/20/19 04/21/19 23:59 23:59 23:59 Intake Total 50 Balance 50 Weight 84 kg General appearance: PRESENT: no acute distress, cooperative Head exam: PRESENT: atraumatic, normocephalic Eye exam: PRESENT: conjunctiva pink. ABSENT: conjunctival injection, scleral icterus Ear exam: PRESENT: normal external ear exam. ABSENT: bleeding, drainage Mouth exam: PRESENT: dry mucosa, neck supple Neck exam: ABSENT: thyromegaly, tracheal deviation Respiratory exam: PRESENT: decreased breath sounds - Mildly decreased breath s ounds throughout all shah consistent with mild to moderate COPD, prolonged expiratory phas - Mildly prolonged expiratory phase in all shah, rhonchi - Scattered central rhonchi noted, symmetrical, unlabored Cardiovascular exam: PRESENT: RRR. ABSENT: clicks, gallop, rubs Pulses: PRESENT: normal radial pulses, normal dorsalis pedis pul Vascular exam: PRESENT: normal capillary refill. ABSENT: pallor GI/Abdominal exam: PRESENT: normal bowel sounds, soft, other - Urostomy noted Rectal exam: PRESENT: deferred Extremities exam: ABSENT: joint swelling, pedal edema Musculoskeletal exam: ABSENT: deformity, dislocation Neurological exam: PRESENT: altered - Confused and disoriented, awake, CN II-XII grossly intact. ABSENT: motor sensory deficit - No gross motor or sensory deficit noted Psychiatric exam: PRESENT: flat affect, normal mood Skin exam: PRESENT: dry, intact, warm. ABSENT: jaundice, rash, urticaria Results Laboratory Results: 04/21/19 17:52 04/21/19 17:52 04/21/19 04/21/19 04/21/19 17:52 17:52 17:52 WBC 12.6 H RBC 3.88 L Hgb 12.2 L Hct 36.6 L MCV 94 MCH 31.4 MCHC 33.3 RDW 13.3 Plt Count 157 Seg Neutrophils % 88.0 H VBG pH VBG pCO2 VBG HCO3 VBG Base Excess Sodium 135.0 L Potassium 4.9 Chloride 93 L Carbon Dioxide 30 Anion Gap 12 BUN 25 H Creatinine 3.00 H Est GFR ( Amer) 25 L Glucose 166 H Lactic Acid Calcium 8.5 Total Bilirubin 0.9 AST 30 Alkaline Phosphatase 94 Total Protein 7.6 Albumin 4.3 Urine Color HAJA Urine Appearance CLOUDY Urine pH 7.0 Ur Specific [place] 1.014 Urine Protein 30 H Urine Glucose (UA) NEGATIVE Urine Ketones NEGATIVE Urine Blood NEGATIVE Urine Nitrite NEGATIVE Ur Leukocyte Esterase LARGE H Urine WBC (Auto) 32 Urine RBC (Auto) 3 04/21/19 04/21/19 17:52 17:52 WBC RBC Hgb Hct MCV MCH MCHC RDW Plt Count Seg Neutrophils % VBG pH 7.40 VBG pCO2 44.4 VBG HCO3 27.0 VBG Base Excess 1.6 Sodium Potassium Chloride Carbon Dioxide Anion Gap BUN Creatinine Est GFR ( Amer) Glucose Lactic Acid 2.8 H Calcium Total Bilirubin AST Alkaline Phosphatase Total Protein Albumin Urine Color Urine Appearance Urine pH Ur Specific [place] Urine Protein Urine Glucose (UA) Urine Ketones Urine Blood Urine Nitrite Ur Leukocyte Esterase Urine WBC (Auto) Urine RBC (Auto) 04/21/19 17:52 Troponin I 0.055 Assessment and Plan - Diagnosis (1) Severe sepsis with acute organ dysfunction Is this a current diagnosis for this admission?: Yes (2) Pyuria Is this a current diagnosis for this admission?: Yes (3) Encephalopathy acute Is this a current diagnosis for this admission?: Yes (4) Hypotension Qualifiers: Hypotension type: unspecified hypotension type Qualified Code(s): I95.9 - Hypotension, unspecified Is this a current diagnosis for this admission?: Yes (5) End-stage renal disease on hemodialysis Is this a current diagnosis for this admission?: Yes (6) Anemia, chronic disease Is this a current diagnosis for this admission?: Yes (7) Hyperlipidemia Qualifiers: Hyperlipidemia type: unspecified Qualified Code(s): E78.5 - Hyperlipidemia, unspecified Is this a current diagnosis for this admission?: Yes (8) Hypertension Qualifiers: Hypertension type: essential hypertension Qualified Code(s): I10 - Essential (primary) hypertension Is this a current diagnosis for this admission?: Yes (9) Coronary artery disease Qualifiers: Coronary Disease-Associated Artery/Lesion type: [place] artery [place] vs. transplanted heart: [place] heart Associated angina: without angina Qualified Code(s): I25.10 - Atherosclerotic heart disease of [place] coronary artery without angina pectoris Is this a current diagnosis for this admission?: Yes (10) COPD (chronic obstructive pulmonary disease) Qualifiers: COPD type: unspecified COPD Qualified Code(s): J44.9 - Chronic obstructive pulmonary disease, unspecified Is this a current diagnosis for this admission?: Yes - Plan Summary Summary: Patient is admitted and will be treated on the sepsis protocol in [facility]. He will receive vasopressor if necessary after adequate fluid volume replacement. Will be treated with acetaminophen and his mental status will be monitored closely with neuro checks. He will receive usual supportive and symptomatic cares as required. Operatory evaluations will be as outlined per sepsis protocol. Antibiotic therapy will be per the sepsis protocol. - Time Time Spent with patient: 25-34 minutes Medications reviewed and adjusted accordingly: Yes Anticipated discharge: Home - Inpatient Certification Based on my medical assessment, after consideration of the patient's comorbidities, presenting symptoms, or acuity I expect that the services needed warrant INPATIENT care.: Yes I certify that my determination is in accordance with my understanding of Medicare's requirements for reasonable and necessary INPATIENT services [42 CFR 412.3e].: Yes Medical Necessity: Significant Comorbidiites Make Outpatient Treatment Too Risky, Need Close Monitoring Due to Risk of Patient Decompensation, Need For IV Fluids, Need For Continuous Telemetry Monitoring, Need for Neurological Checks, Need for IV Antibiotics, Risk of Complication if Not Cared For in Hospital
[2019-04-21] MEDS ORDERED: TEMAZEPAM 15 MG CAPSULE PO PRN (23:04)
[2019-04-21] MEDS ORDERED: RINGERS SOLUTION,LACTATED 1,000 ML IV PRN (23:04)
[2019-04-21] MEDS ORDERED: MAGNESIUM HYDROXIDE SUSP 30 ML UDCUP PO PRN (23:04)
[2019-04-21] MEDS ORDERED: MEROPENEM 1 GM VIAL IV PRN (23:15)
[2019-04-22] MEDS ORDERED: RINGERS SOLUTION,LACTATED 1,000 ML IV ONE (00:30)
[2019-04-22] MEDS: LEVALBUTEROL HCL NEB 0.63 MG/3 ML AMPUL NEB PRN ×2 (01:43→04:10)
[2019-04-22] MEDS ORDERED: MEROPENEM 1 GM VIAL ONE (02:41)
[2019-04-22] MEDS: MEROPENEM 1 GM in NORMAL SALINE 50 ML IV SCH ×2 (03:04→09:42)
[2019-04-22] MEDS: ISOSORBIDE DINITRATE 20 MG TABLET PO SCH ×3 (03:07→22:10)
[2019-04-22] MEDS: SODIUM BICARBONATE 650 MG TABLET PO SCH ×3 (03:08→22:10)
[2019-04-22 03:20] LABS: ABSOLUTE EOSINOPHILS # (AUTO) 0.1 10^3/uL (0.0-0.6); ABSOLUTE MONOCYTES (AUTO) 1.1 10^3/uL (0.1-1.4); ABSOLUTE NEUT (AUTO) 9.8 10^3/uL (1.7-8.2); BASOPHILS % (AUTO) 0.3 % (0-2); EOSINOPHILS % (AUTO) 0.6 % (0-6); HEMATOCRIT 34.3 % (37.9-51.0); HEMOGLOBIN 11.5 g/dL (13.5-17.0); LYMPHOCYTES % (AUTO) 8.3 % (13-45); MEAN CORPUSCULAR HEMOGLOBIN 31.3 pg (27.0-33.4); MEAN CORPUSCULAR HGB CONC 33.6 g/dL (32.0-36.0); MEAN CORPUSCULAR VOLUME 93 fl (80-97); PLATELET COUNT 126 10^3/uL (150-450); RED BLOOD COUNT 3.69 10^6/uL (4.35-5.55); RED CELL DISTRIBUTION WIDTH 13.8 % (11.5-14.0); SEGMENTED NEUTROPHILS % (AUTO) 81.8 % (42-78); TOTAL CELLS COUNTED % (AUTO) 100 %
[2019-04-22 03:45] LABS: ALBUMIN 3.6 g/dL (3.5-5.0); ALKALINE PHOSPHATASE 81 U/L (38-126); ANION GAP 11 (5-19); ASPARTATE AMINO TRANSFERASE 32 U/L (17-59); BILIRUBIN,DIRECT 0.2 mg/dL (0.0-0.4); BILIRUBIN,TOTAL 0.7 mg/dL (0.2-1.3); BLOOD UREA NITROGEN 32 mg/dL (7-20); CARBON DIOXIDE 30 mmol/L (22-30); CHLORIDE 95 mmol/L (98-107); GLUCOSE 120 mg/dL (75-110); POTASSIUM 5.1 mmol/L (3.6-5.0); TOTAL PROTEIN 6.7 g/dL (6.3-8.2)
[2019-04-22] MEDS: ACETAMINOPHEN 325 MG TABLET PO PRN (04:31)
[2019-04-22] MEDS: PANTOPRAZOLE SODIUM 40 MG TABLET.DR PO SCH ×2 (06:55→17:01)
--- NOTE | 2019-04-22 07:48 | EKG REPORT ---
SEVERITY:- ABNORMAL ECG - SINUS RHYTHM FIRST DEGREE AV BLOCK : Confirmed by: Brooks Edouard MD 22-Apr-2019 07:48:12
[2019-04-22] MEDS: CALCIUM CARBONATE 500 MG TAB.CHEW PO SCH ×2 (09:16→17:01)
[2019-04-22] MEDS: MAGNESIUM OXIDE 400 MG TABLET PO SCH (09:16)
[2019-04-22] MEDS ORDERED: ASPIRIN 81 MG TABLET, ENT COATED PO SCH (10:00)
[2019-04-22] MEDS: PREDNISONE 20 MG TABLET PO SCH (11:07)
[2019-04-22] MEDS: IPRATROPIUM/ALBUTEROL 0.5-2.5 MG/3 ML AMPUL NEB SCH ×2 (14:02→20:58)
--- NOTE | 2019-04-22 18:14 | PDOC PROGRESS REPORT ---
Subjective Progress Note for:: 04/22/19 Subjective:: TYLOR JIMENEZ is a 78 year old male who presented to the emergency room with acute confusion. His son brought him to the emergency room and answers questions as his father is unable to participate in his historical record due to his acute encephalopathy. His son relates that the patient went to dialysis as usual earlier today and after completing dialysis left the dialysis center but was sitting outside for 2 to 3 hours when the dialysis staff went out to speak with him and found that he was disoriented and had a fever. He was subsequently transported to the emergency room by his son for evaluation. His son admits prior similar episodes usually resulting from a urinary tract infection or a pulmonary infection. His son relates that the dialysis staff noted that he had a cough this morning and took some cough drops and he also had an episode of diarrhea yesterday after eating fried foods which is not uncommon for him. His son has not identified any additional associated or accompanying signs or symptoms, nor has he identified any additional aggravating or ameliorating factors for his father's confusion. In the emergency room the patient was found to be febrile with a fever of 103.1 F and had an elevated white blood count at 12,600 with modest hypotension (MAP of 63 and 68) and an elevated serum lactate. Patient was subsequently admitted to [facility] for treatment of his severe sepsis. 04/22/2019. Patient comfortably resting in bed, alert oriented x3, confusion has resolved, vitals are stable. Denies any fever, chills, nausea, vomiting, diarrhea, constipation or any urinary symptoms. Reason For Visit: SEPSIS,FEVER,HYPOTENSION,ACUTE ENCEPHALOPATHY Physical Exam Vital Signs: Temp Pulse Resp BP Pulse Ox 98.4 F 73 18 107/43 L 97 04/22/19 14:50 04/22/19 14:50 04/22/19 14:50 04/22/19 14:50 04/22/19 14:50 Intake & Output 04/21/19 04/22/19 04/23/19 06:59 06:59 06:59 Intake Total 100 2770 Output Total 200 250 Balance -100 2520 Weight 81.3 kg General appearance: PRESENT: no acute distress, well-developed, well-nourished Respiratory exam: PRESENT: clear to auscultation jenni. ABSENT: rales, rhonchi, wheezes Cardiovascular exam: PRESENT: RRR. ABSENT: diastolic murmur, rubs, systolic murmur GI/Abdominal exam: PRESENT: normal bowel sounds, soft. ABSENT: distended, guarding, mass, organolmegaly, rebound, tenderness Gentrourinary exam: PRESENT: other - Suprapubic catheter, clear urine. Neurological exam: PRESENT: alert, awake, oriented to person, oriented to place, oriented to time, oriented to situation, CN II-XII grossly intact. ABSENT: motor sensory deficit Results Laboratory Results: 04/22/19 03:10 04/22/19 03:10 04/21/19 04/21/19 04/21/19 17:52 17:52 17:52 WBC 12.6 H RBC 3.88 L Hgb 12.2 L Hct 36.6 L MCV 94 MCH 31.4 MCHC 33.3 RDW 13.3 Plt Count 157 Seg Neutrophils % 88.0 H VBG pH VBG pCO2 VBG HCO3 VBG Base Excess Sodium 135.0 L Potassium 4.9 Chloride 93 L Carbon Dioxide 30 Anion Gap 12 BUN 25 H Creatinine 3.00 H Est GFR ( Amer) 25 L Glucose 166 H Lactic Acid Calcium 8.5 Magnesium Total Bilirubin 0.9 AST 30 Alkaline Phosphatase 94 Total Protein 7.6 Albumin 4.3 Urine Color HAJA Urine Appearance CLOUDY Urine pH 7.0 Ur Specific [place] 1.014 Urine Protein 30 H Urine Glucose (UA) NEGATIVE Urine Ketones NEGATIVE Urine Blood NEGATIVE Urine Nitrite NEGATIVE Ur Leukocyte Esterase LARGE H Urine WBC (Auto) 32 Urine RBC (Auto) 3 04/21/19 04/21/19 04/21/19 17:52 17:52 22:43 WBC RBC Hgb Hct MCV MCH MCHC RDW Plt Count Seg Neutrophils % VBG pH 7.40 VBG pCO2 44.4 VBG HCO3 27.0 VBG Base Excess 1.6 Sodium Potassium Chloride Carbon Dioxide Anion Gap BUN Creatinine Est GFR ( Amer) Glucose Lactic Acid 2.8 H 1.2 Calcium Magnesium Total Bilirubin AST Alkaline Phosphatase Total Protein Albumin Urine Color Urine Appearance Urine pH Ur Specific [place] Urine Protein Urine Glucose (UA) Urine Ketones Urine Blood Urine Nitrite Ur Leukocyte Esterase Urine WBC (Auto) Urine RBC (Auto) 04/22/19 04/22/19 04/22/19 03:10 03:10 03:10 WBC 12.0 H RBC 3.69 L Hgb 11.5 L Hct 34.3 L MCV 93 MCH 31.3 MCHC 33.6 RDW 13.8 Plt Count 126 L Seg Neutrophils % 81.8 H VBG pH VBG pCO2 VBG HCO3 VBG Base Excess Sodium 135.7 L Potassium 5.1 H Chloride 95 L Carbon Dioxide 30 Anion Gap 11 BUN 32 H Creatinine 3.57 H Est GFR ( Amer) 20 L Glucose 120 H Lactic Acid 1.2 Calcium 8.0 L Magnesium 1.5 L Total Bilirubin 0.7 AST 32 Alkaline Phosphatase 81 Total Protein 6.7 Albumin 3.6 Urine Color Urine Appearance Urine pH Ur Specific [place] Urine Protein Urine Glucose (UA) Urine Ketones Urine Blood Urine Nitrite Ur Leukocyte Esterase Urine WBC (Auto) Urine RBC (Auto) 04/22/19 08:35 WBC RBC Hgb Hct MCV MCH MCHC RDW Plt Count Seg Neutrophils % VBG pH VBG pCO2 VBG HCO3 VBG Base Excess Sodium Potassium Chloride Carbon Dioxide Anion Gap BUN Creatinine Est GFR ( Amer) Glucose Lactic Acid 1.0 Calcium Magnesium Total Bilirubin AST Alkaline Phosphatase Total Protein Albumin Urine Color Urine Appearance Urine pH Ur Specific [place] Urine Protein Urine Glucose (UA) Urine Ketones Urine Blood Urine Nitrite Ur Leukocyte Esterase Urine WBC (Auto) Urine RBC (Auto) 04/21/19 17:52 Troponin I 0.055 Impressions: Chest X-Ray 04/21/19 22:01 IMPRESSION: No acute disease. copyright 2010 [employer]- All Rights Reserved Assessment and Plan - Diagnosis (1) Severe sepsis with acute organ dysfunction Is this a current diagnosis for this admission?: Yes Plan: Evidenced by leukocytosis, encephalopathy, elevated lactic acid, hypertension, fever. Likely source urine. Leukocytosis improving, encephalopathy resolved, lactic acid WNL, normotensive, afebrile. Was started on volume resuscitation and IV empiric antibiotics. Currently euvolemic, DC IV fluids as patient is end-stage renal disease. Continue empiric IV antibiotics. Transition to p.o. once appropriate. Follow-up cultures. (2) End-stage renal disease on hemodialysis Is this a current diagnosis for this admission?: Yes Plan: On hemodialysis Sunday. Continue renal diet, monitor volume status, monitor electrolytes and replace as needed. Consult nephrology for continued hemodialysis while inpatient. Outpatient nephrology follow-up. (3) Acute encephalopathy Is this a current diagnosis for this admission?: Yes Plan: Acute metabolic encephalopathy most likely due to underlying sepsis. Resolved. Plan as per #1. (4) UTI (urinary tract infection) Qualifiers: Urinary tract infection type: acute pyelonephritis Qualified Code(s): N10 - Acute pyelonephritis Is this a current diagnosis for this admission?: Yes Plan: Likely polymicrobial. History of polymicrobial UTIs likely due to underlying abnormality caused by history of bladder cancer status post surgery, urostomy bag in place. UA positive. Urine culture growing gram-negative rods. Continue empiric IV antibiotics. Follow-up urine culture, transition to p.o. antibiotics once appropriate. (5) Anemia, chronic disease Is this a current diagnosis for this admission?: Yes Plan: Hemoglobin at baseline. No sign of bleeding. Continue monitoring H&H. Outpatient nephrology follow-up. (6) Coronary artery disease Qualifiers: Coronary Disease-Associated Artery/Lesion type: [place] artery [place] vs. transplanted heart: [place] heart Associated angina: without angina Qualified Code(s): I25.10 - Atherosclerotic heart disease of [place] coronary artery without angina pectoris Is this a current diagnosis for this admission?: Yes Plan: Denies any anginal symptoms. Continue antiplatelets, nitrates, statins. (7) COPD (chronic obstructive pulmonary disease) Qualifiers: COPD type: unspecified COPD Qualified Code(s): J44.9 - Chronic obstructive pulmonary disease, unspecified Is this a current diagnosis for this admission?: Yes Plan: Mild wheezing on respiratory examination. Former smoker. Not on home O2. DuoNeb's, p.o. steroids, PRN BiPAP, supplemental oxygen, flutter valve, incentive spirometer. - Plan Summary Summary: Patient is admitted and will be treated on the sepsis protocol in [facility]. He will receive vasopressor if necessary after adequate fluid volume replacement. Will be treated with acetaminophen and his mental status will be monitored closely w ith neuro checks. He will receive usual supportive and symptomatic cares as required. Operatory evaluations will be as outlined per sepsis protocol. Antibiotic therapy will be per the sepsis protocol.
[2019-04-22] MEDS: ATORVASTATIN CALCIUM 20 MG TABLET PO SCH (22:10)
[2019-04-22] MEDS: MEROPENEM 500 MG in NORMAL SALINE 50 ML IV SCH (22:10)
[2019-04-23] MEDS ORDERED: NORMAL SALINE 1000 ML 1,000 ML IV PRN (05:00)
[2019-04-23] MEDS: PANTOPRAZOLE SODIUM 40 MG TABLET.DR PO SCH ×2 (05:32→16:31)
[2019-04-23] MEDS: ACETAMINOPHEN 325 MG TABLET PO PRN ×2 (06:11→16:30)
[2019-04-23] MEDS: GUAIFENESIN SYRP 200 MG/10 ML UDC PO PRN (06:11)
[2019-04-23 06:32] LABS: ABSOLUTE LYMPHOCYTES (AUTO) 0.9 10^3/uL (0.5-4.7); ABSOLUTE MONOCYTES (AUTO) 0.8 10^3/uL (0.1-1.4); ABSOLUTE NEUT (AUTO) 8.5 10^3/uL (1.7-8.2); BASOPHILS % (AUTO) 0.1 % (0-2); HEMATOCRIT 31.1 % (37.9-51.0); HEMOGLOBIN 10.9 g/dL (13.5-17.0); LYMPHOCYTES % (AUTO) 8.9 % (13-45); MEAN CORPUSCULAR HEMOGLOBIN 32.2 pg (27.0-33.4); MEAN CORPUSCULAR HGB CONC 34.9 g/dL (32.0-36.0); MEAN CORPUSCULAR VOLUME 92 fl (80-97); MONOCYTES % (AUTO) 7.8 % (3-13); PLATELET COUNT 134 10^3/uL (150-450); RED BLOOD COUNT 3.37 10^6/uL (4.35-5.55); RED CELL DISTRIBUTION WIDTH 13.3 % (11.5-14.0); SEGMENTED NEUTROPHILS % (AUTO) 83.2 % (42-78); TOTAL CELLS COUNTED % (AUTO) 100 %; WHITE BLOOD COUNT 10.2 10^3/uL (4.0-10.5)
[2019-04-23 06:46] LABS: ANION GAP 12 (5-19); BLOOD UREA NITROGEN 59 mg/dL (7-20); CALCIUM 8.3 mg/dL (8.4-10.2); CARBON DIOXIDE 27 mmol/L (22-30); CHLORIDE 97 mmol/L (98-107); GLUCOSE 121 mg/dL (75-110); POTASSIUM 4.9 mmol/L (3.6-5.0)
[2019-04-23] MEDS: IPRATROPIUM/ALBUTEROL 0.5-2.5 MG/3 ML AMPUL NEB SCH ×3 (08:06→19:45)
[2019-04-23] MEDS: SODIUM BICARBONATE 650 MG TABLET PO SCH ×2 (09:59→22:25)
[2019-04-23] MEDS: CALCIUM CARBONATE 500 MG TAB.CHEW PO SCH (09:59)
[2019-04-23] MEDS: CETIRIZINE 10 MG TABLET PO SCH (09:59)
[2019-04-23] MEDS: ISOSORBIDE DINITRATE 20 MG TABLET PO SCH ×2 (09:59→22:25)
[2019-04-23] MEDS: MAGNESIUM OXIDE 400 MG TABLET PO SCH (09:59)
[2019-04-23] MEDS: PREDNISONE 20 MG TABLET PO SCH (09:59)
--- NOTE | 2019-04-23 11:49 | PDOC PROGRESS REPORT ---
Subjective Progress Note for:: 04/23/19 Subjective:: 78 year old male who presented to the emergency room with acute confusion. His son brought him to the emergency room and answers questions as his father is unable to participate in his historical record due to his acute encephalopathy. His son relates that the patient went to dialysis as usual earlier today and after completing dialysis left the dialysis center but was sitting outside for 2 to 3 hours when the dialysis staff went out to speak with him and found that he was disoriented and had a fever. He was subsequently transported to the emergency room by his son for evaluation. His son admits prior similar episodes usually resulting from a urinary tract infection or a pulmonary infection. His son relates that the dialysis staff noted that he had a cough this morning and took some cough drops and he also had an episode of diarrhea yesterday after e ating fried foods which is not uncommon for him. His son has not identified any additional associated or accompanying signs or symptoms, nor has he identified any additional aggravating or ameliorating factors for his father's confusion. In the emergency room the patient was found to be febrile with a fever of 103.1 F and had an elevated white blood count at 12,600 with modest hypotension (MAP of 63 and 68) and an elevated serum lactate. Patient was subsequently admitted to [facility] for treatment of his severe sepsis. 04/22/2019. Patient comfortably resting in bed, alert oriented x3, confusion has resolved, vitals are stable. Denies any fever, chills, nausea, vomiting, diarrhea, constipation or any urinary symptoms. 04/23/2019-patient is comfortable in the dialysis chair communicating okay. He has extremely difficulty in hearing. Able to give me his date of and location. No acute events in the last 24 hours. Afebrile. Reason For Visit: SEPSIS,FEVER,HYPOTENSION,ACUTE ENCEPHALOPATHY Physical Exam Vital Signs: Temp Pulse Resp BP Pulse Ox 97.9 F 81 14 120/44 L 92 04/23/19 06:56 04/23/19 08:06 04/23/19 08:06 04/23/19 06:56 04/23/19 08:06 Intake & Output 04/22/19 04/23/19 04/24/19 06:59 06:59 06:59 Intake Total 100 2820 Output Total 200 1050 Balance -100 1770 Weight 81.3 kg 83 kg General appearance: PRESENT: no acute distress, cooperative Head exam: PRESENT: atraumatic Eye exam: PRESENT: PERRLA Mouth exam: PRESENT: moist, tongue midline Teeth exam: PRESENT: poor dentation Neck exam: ABSENT: carotid bruit, JVD, lymphadenopathy, thyromegaly Respiratory exam: PRESENT: decreased breath sounds Cardiovascular exam: PRESENT: RRR. ABSENT: diastolic murmur, rubs, systolic murmur GI/Abdominal exam: PRESENT: normal bowel sounds, soft. ABSENT: distended, guarding, mass, organolmegaly, rebound, tenderness Rectal exam: PRESENT: deferred Extremities exam: PRESENT: full ROM, other - Has AV fistula on the left arm functioning well.. ABSENT: calf tenderness, clubbing, pedal edema Neurological exam: PRESENT: alert, awake, oriented to person, oriented to place, oriented to time, oriented to situation, CN II-XII grossly intact. ABSENT: motor sensory deficit Psychiatric exam: PRESENT: appropriate affect, normal mood. ABSENT: homicidal ideation, suicidal ideation Results Laboratory Results: 04/23/19 05:20 04/23/19 05:20 04/23/19 04/23/19 05:20 05:20 WBC 10.2 RBC 3.37 L Hgb 10.9 L Hct 31.1 L MCV 92 MCH 32.2 MCHC 34.9 RDW 13.3 Plt Count 134 L Seg Neutrophils % 83.2 H Sodium 135.6 L Potassium 4.9 Chloride 97 L Carbon Dioxide 27 Anion Gap 12 BUN 59 H Creatinine 5.11 H Est GFR ( Amer) 13 L Glucose 121 H Calcium 8.3 L Magnesium 2.0 04/21/19 17:52 Troponin I 0.055 Impressions: Chest X-Ray 04/21/19 22:01 IMPRESSION: No acute disease. copyright 2010 [employer]- All Rights Reserved Assessment and Plan - Plan Summary Summary: Patient is admitted and will be treated on the sepsis protocol in [facility]. He will receive vasopressor if necessary after adequate fluid volume replacement. Will be treated with acetaminophen and his mental status will be monitored closely with neuro checks. He will receive usual supportive and symptomatic cares as required. Operatory evaluations will be as outlined per sepsis protocol. Antibiotic therapy will be per the sepsis protocol. (1) Severe sepsis with acute organ dysfunction Is this a current diagnosis for this admission?: Yes Plan: Evidenced by leukocytosis, encephalopathy, elevated lactic acid, hypertension, fever. Likely source urine. Leukocytosis improving, encephalopathy resolved, lactic acid WNL, normotensive, afebrile. Was started on volume resuscitation and IV empiric antibiotics. Currently euvolemic, DC IV fluids as patient is end-stage renal disease. Continue empiric IV antibiotics. Transition to p.o. once appropriate. Follow-up cultures. 04/23/2019-patient came in with elevated WBC count, acute encephalopathy, elevated lactic acid levels, fever. Blood pressure today is 98/42 T-max is 97.8. WBC count is 10,200 normalized. Sepsis is resolving. Patient alert and awake communicating well looks like his mental status is back to baseline. (2) End-stage renal disease on hemodialysis Is this a current diagnosis for this admission?: Yes Plan: On hemodialysis Sunday. Continue renal diet, monitor volume status, monitor electrolytes and replace as needed. Consult nephrology for continued hemodialysis while inpatient. Outpatient nephrology follow-up. 04/23/2019-patient has history of end-stage renal disease on hemodialysis is getting the dialysis today. Nephrology on board. (3) Acute encephalopathy Is this a current diagnosis for this admission?: Yes Plan: Acute metabolic encephalopathy most likely due to underlying sepsis. Resolved. Plan as per #1. 04/23/2019-altered mental status/acute encephalopathy most likely secondary to sepsis resolving. His mental status is back to baseline. (4) UTI (urinary tract infection) Qualifiers: Urinary tract infection type: acute pyelonephritis Qualified Code(s): N10 - Acute pyelonephritis Is this a current diagnosis for this admission?: Yes Plan: Urine cultures came back positive for E. coli pansensitive. pt Is presently on meropenem. Plan is to discontinue meropenem and start him on ceftriaxone. (5) Anemia, chronic disease Is this a current diagnosis for this admission?: Yes Plan: Hemoglobin at baseline. No sign of bleeding. Continue monitoring H&H. Outpatient nephrology follow-up. (6) Coronary artery disease Qualifiers: Coronary Disease-Associated Artery/Lesion type: [place] artery [place] vs. transplanted heart: [place] heart Associated angina: without angina Qualified Code(s): I25.10 - Atherosclerotic heart disease of [place] coronary artery without angina pectoris Is this a current diagnosis for this admission?: Yes Plan: Denies any anginal symptoms. Continue antiplatelets, nitrates, statins. (7) COPD (chronic obstructive pulmonary disease) Qualifiers: COPD type: unspecified COPD Qualified Code(s): J44.9 - Chronic obstructive pulmonary disease, unspecified Is this a current diagnosis for this admission?: Yes Plan: Mild wheezing on respiratory examination. Former smoker. Not on home O2. DuoNeb's, p.o. steroids, PRN BiPAP, supplemental oxygen, flutter valve, incentive spirometer.
[2019-04-23] MEDS: MEROPENEM 500 MG in NORMAL SALINE 50 ML IV SCH (14:23)
--- NOTE | 2019-04-23 20:13 | PDOC CONSULTATION ---
Consultation Consult Date: 04/23/19 Provider Consulted: ISIDORO TOUSSAINT Consult reason:: I was asked to see the patient for hemodialysis in a patient with ESRD. History of Present Illness Admission Date/PCP: 04/21/19 22:39 [facility] History of Present Illness: TYLOR JIMENEZ is a 78 year old male known to me with history of ESRD on maintenance hemodialysis on MWF, coronary artery disease, COPD, recurrent UTI in a patient who had cystectomy with ileal conduit and urostomy bag who was brought to the emergency room via EMS from [facility] due to altered mental status. When I saw the patient today during dialysis the patient could not really recall what happened to him and how he ended up in the hospital. He states that the last time he remembered he is that he finished dialysis and got out and nothing further. Last Sunday the patient after completion of his hemodialysis went out to the waiting room and sat down. He was found by 1 of her dialysis nurse to be just sitting down with altered mental status described as being confused. He was febrile so our dialysis nurse called his son and later on he was transported to the emergency room. In the emergency room he had a temperature of 103.1. He was confused. Urinalysis is consistent with urinary tract infection. He does have a have minimal elevation of WBC. He was then admitted and started to be treated for urinary tract infection with IV ceftriaxone. His urine culture is growing E. coli currently. When I saw him today during dialysis treatment he seems to be in his usual mental state. He told me he could not remember the past 2 days. He said is feeling fine currently. He has a dry cough but otherwise denies any other complaints. He said is eating. He denies any chest pains no shortness of breath. He is tolerating dialysis without any problems or complaints. Past Medical History Cardiac Medical History: Reports: Coronary Artery Disease, Hyperlipidemia, Hypertension-primary, Peripheral Vascular Disease Pulmonary Medical History: Reports: Chronic Obstructive Pulmonary Disease (COPD) - Possible, Pneumonia EENT Medical History: Reports: Other - Bilateral hearing loss Renal/ Medical History: Reports: End Stage Renal Disease - On hemodialysis Sunday and Sunday with Dr. Toussaint., Hyperphosphatemia, Metabolic Acidosis, Nephrolithiasis, Recurrent UTI Malignancy Medical History: Reports: Renal (Kidney) Cancer - Bladder and prostate cancer Musculoskeltal Medical History: Reports: Gout Infectious Medical History: Reports: 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 Hematology Medical History: Reports Anemia of Chronic Kidney Disease Past Surgical History Past Surgical History: Reports: Cardiac Catheterization, Coronary Artery Bypass Graft, Cystectomy - With urostomy bag in the right lower quadrant, Dialysis Access Surgery AVF, Orthopedic Surgery - Right hip hemiarthroplasty August 2016, Vascular Surgery - AAA repair, Other - Nephrostomy tube placement, creation of ileal conduit, prostatectomy Social History Information Source: [facility] [place] Records Lives with: Family - Lives with his son Smoking Status: Former Smoker Electronic Cigarette use?: No Frequency of Alcohol Use: None Hx Recreational Drug Use: No Drugs: None Hx Prescription Drug Abuse: No - Advance Directive Resuscitation Status: Full Code Family History Family History: Malignancy - Bone cancer in his father Family History: No family history of kidney disease. Parental Family History Reviewed: Yes Children Family History Reviewed: Yes Sibling(s) Family History Reviewed.: Yes Medication/Allergy Home Medications: Calcium Carbonate [Tums Chewable 500 mg Tab.chew] 500 mg PO DAILY 04/17/18 Folic Acid/Vitamin B Comp W-C [Nephrocaps Multiple Vitamin Capsule] 1 cap PO QHS 04/17/18 Magnesium Oxide [Mag-Ox 400 mg Tablet] 400 mg PO DAILY 04/17/18 Omeprazole 20 mg PO DAILY 04/17/18 Sodium Bicarbonate [Sodium Bicarbonate 650 mg Tablet] 650 mg PO Q12 04/17/18 Aspirin [Ecotrin 81 mg EC Tablet] 81 mg PO QHS tabec 09/17/18 Isosorbide Dinitrate [Isordil Titradose 20 mg Tablet] 20 mg PO Q12 01/15/19 Cetirizine HCl [Zyrtec 10 mg Tablet] 1 tab PO DAILY 04/22/19 Allergies/Adverse Reactions: ciprofloxacin [From Cipro] Allergy (Verified 01/14/19 18:11) Review of Systems All systems: reviewed and no additional remarkable complaints except as stated Review of Systems: Constitutional: ABSENT: chills, fatigue, fever(s), headache(s), weight gain, weight loss Eyes: ABSENT: visual disturbances Ears: ABSENT: hearing changes Cardiovascular: ABSENT: chest pain, dyspnea on exertion, edema, orthropnea, palpitations Respiratory: ABSENT: Dyspnea, hemoptysis; admits dry cough Gastrointestinal: ABSENT: abdominal pain, constipation, hematemesis, hematochezia, nausea, vomiting; admits some diarrhea Genitourinary: ABSENT: dysuria, hematuria Musculoskeletal: ABSENT: joint swelling Integumentary: ABSENT: rash, wounds Neurological: ABSENT: abnormal gait, abnormal speech, confusion, dizziness, focal weakness, numbness, syncope Psychiatric: ABSENT: anxiety, depression Endocrine: ABSENT: cold intolerance, heat intolerance, polydipsia, polyuria Hematologic/Lymphatic: ABSENT: easy bleeding, easy bruising, lymphadenopathy Physical Exam Vital Signs: Temp Pulse Resp BP Pulse Ox 97.9 F 81 14 120/44 L 92 04/23/19 06:56 04/23/19 08:06 04/23/19 08:06 04/23/19 06:56 04/23/19 08:06 Intake & Output 04/22/19 04/23/19 04/24/19 06:59 06:59 06:59 Intake Total 100 2820 Output Total 200 1050 Balance -100 1770 Weight 81.3 kg 83 kg Vitals during dialysis: Blood pressure 1O 8/54, heart rate of 72, blood flow rate of 450 mL/min and dialysate flow rate of 800 mL/min. Exam: General appearance: No acute distress, cooperative, well-developed, well- nourished; patient is very hard of hearing. Head exam: PRESENT: atraumatic, normocephalic Eye exam: PRESENT: Conjunctiva slightly pale, EOMI, PERRLA. ABSENT: conjunctival injection, scleral icterus Mouth exam: PRESENT: moist, neck supple, tongue midline Neck exam: PRESENT: full ROM. ABSENT: carotid bruit, JVD, lymphadenopathy, thyromegaly Respiratory exam: PRESENT: clear to auscultation bilaterally. ABSENT: rales, rhonchi, stridor, wheezes Cardiovascular exam: PRESENT: RRR, +S1, +S2. ABSENT: systolic murmur Pulses: PRESENT: normal radial pulses, normal dorsalis pedis pulses GI/Abdominal exam: PRESENT: normal bowel sounds, soft. Urostomy bag in the right lower quadrant area ABSENT: guarding, mass, tenderness Rectal exam: Deferred Extremities exam: PRESENT: full ROM. ABSENT: calf tenderness, pedal edema Musculoskeletal: PRESENT: full ROM. ABSENT: deformity Neurological exam: PRESENT: alert, Awake, Oriented to person, Oriented to place, Oriented to time, reflexes normal, CN II-XII grossly intact. ABSENT: motor sensory deficit Psychiatric exam: PRESENT: appropriate affect, normal mood. ABSENT: homicidal ideation, suicidal ideation Skin exam: PRESENT: intact, dry, warm. ABSENT: rash Results Laboratory Results: 04/23/19 05:20 04/23/19 05:20 04/23/19 04/23/19 05:20 05:20 WBC 10.2 RBC 3.37 L Hgb 10.9 L Hct 31.1 L MCV 92 MCH 32.2 MCHC 34.9 RDW 13.3 Plt Count 134 L Seg Neutrophils % 83.2 H Sodium 135.6 L Potassium 4.9 Chloride 97 L Carbon Dioxide 27 Anion Gap 12 BUN 59 H Creatinine 5.11 H Est GFR ( Amer) 13 L Glucose 121 H Calcium 8.3 L Magnesium 2.0 04/21/19 17:52 Troponin I 0.055 Impressions: Chest X-Ray 04/21/19 22:01 IMPRESSION: No acute disease. copyright 2010 [employer]- All Rights Reserved Assessment & Plan - Diagnosis (1) Acute UTI (urinary tract infection) Is this a current diagnosis for this admission?: Yes Plan: Secondary to E. coli. Currently on IV ceftriaxone. (2) Acute encephalopathy Is this a current diagnosis for this admission?: Yes Plan: Patient usually presents with altered mental status in conjunction with acute urinary tract infection episodes which she has happened multiple times in the past. So this is the patient's typical presentation. Patient's mental status is almost baseline now after the initiation of treatment for UTI. (3) End-stage renal disease on hemodialysis Is this a current diagnosis for this admission?: Yes Plan: We will do dialysis today for 3 hours, using the patient's AV fistula, with 2 p otassium bath, blood flow rate of 450 mL per minute, dialysate flow rate of 800 mL per minute, ultrafiltration 1 L only as tolerated, no heparin and no Procrit. (4) Anemia in chronic kidney disease (CKD) Qualifiers: Chronic kidney disease stage: on chronic dialysis Qualified Code(s): N18.6 - End stage renal disease; D63.1 - Anemia in chronic kidney disease; D63.1 - Anemia in chronic kidney disease; Z99.2 - Dependence on renal dialysis; Z99.2 - Dependence on renal dialysis; Z99.2 - Dependence on renal dialysis; Z99.2 - Dependence on renal dialysis Is this a current diagnosis for this admission?: Yes Plan: We will give Procrit only as needed. - Notes Notes: Thank you very much for this consultation. We will continue to supervise dialysis while here in the hospital. - Time Time Spent: 50 to 70 Minutes
[2019-04-23] MEDS: FOLIC ACID/VITAMIN B COMP W-C CAPSULE PO SCH (22:24)
[2019-04-23] MEDS: ASPIRIN 81 MG TABLET, ENT COATED PO SCH (22:25)
[2019-04-23] MEDS: ATORVASTATIN CALCIUM 20 MG TABLET PO SCH (22:25)
[2019-04-24 05:22] LABS: ABSOLUTE LYMPHOCYTES (AUTO) 0.9 10^3/uL (0.5-4.7); ABSOLUTE MONOCYTES (AUTO) 0.7 10^3/uL (0.1-1.4); ABSOLUTE NEUT (AUTO) 7.8 10^3/uL (1.7-8.2); BASOPHILS % (AUTO) 0.1 % (0-2); HEMATOCRIT 30.9 % (37.9-51.0); HEMOGLOBIN 10.6 g/dL (13.5-17.0); LYMPHOCYTES % (AUTO) 9.8 % (13-45); MEAN CORPUSCULAR HEMOGLOBIN 31.8 pg (27.0-33.4); MEAN CORPUSCULAR HGB CONC 34.1 g/dL (32.0-36.0); MEAN CORPUSCULAR VOLUME 93 fl (80-97); MONOCYTES % (AUTO) 7.3 % (3-13); PLATELET COUNT 154 10^3/uL (150-450); RED BLOOD COUNT 3.32 10^6/uL (4.35-5.55); RED CELL DISTRIBUTION WIDTH 13.5 % (11.5-14.0); SEGMENTED NEUTROPHILS % (AUTO) 82.8 % (42-78); TOTAL CELLS COUNTED % (AUTO) 100 %; WHITE BLOOD COUNT 9.4 10^3/uL (4.0-10.5)
[2019-04-24] MEDS: PANTOPRAZOLE SODIUM 40 MG TABLET.DR PO SCH ×2 (05:29→18:27)
[2019-04-24 05:43] LABS: ALBUMIN 3.2 g/dL (3.5-5.0); ALKALINE PHOSPHATASE 66 U/L (38-126); ANION GAP 10 (5-19); ASPARTATE AMINO TRANSFERASE 24 U/L (17-59); BILIRUBIN,DIRECT 0.2 mg/dL (0.0-0.4); BILIRUBIN,TOTAL 0.3 mg/dL (0.2-1.3); BLOOD UREA NITROGEN 42 mg/dL (7-20); CALCIUM 8.6 mg/dL (8.4-10.2); CARBON DIOXIDE 27 mmol/L (22-30); CHLORIDE 101 mmol/L (98-107); GLUCOSE 128 mg/dL (75-110); POTASSIUM 5.3 mmol/L (3.6-5.0)
[2019-04-24] MEDS: IPRATROPIUM/ALBUTEROL 0.5-2.5 MG/3 ML AMPUL NEB SCH ×3 (07:50→20:05)
--- NOTE | 2019-04-24 09:02 | PDOC PROGRESS REPORT ---
Subjective Progress Note for:: 04/24/19 Subjective:: 78 year old male who presented to the emergency room with acute confusion. His son brought him to the emergency room and answers questions as his father is unable to participate in his historical record due to his acute encephalopathy. His son relates that the patient went to dialysis as usual earlier today and after completing dialysis left the dialysis center but was sitting outside for 2 to 3 hours when the dialysis staff went out to speak with him and found that he was disoriented and had a fever. He was subsequently transported to the emergency room by his son for evaluation. His son admits prior similar episodes usually resulting from a urinary tract infection or a pulmonary infection. His son relates that the dialysis staff noted that he had a cough this morning and took some cough drops and he also had an episode of diarrhea yesterday after e ating fried foods which is not uncommon for him. His son has not identified any additional associated or accompanying signs or symptoms, nor has he identified any additional aggravating or ameliorating factors for his father's confusion. In the emergency room the patient was found to be febrile with a fever of 103.1 F and had an elevated white blood count at 12,600 with modest hypotension (MAP of 63 and 68) and an elevated serum lactate. Patient was subsequently admitted to [facility] for treatment of his severe sepsis. 04/22/2019. Patient comfortably resting in bed, alert oriented x3, confusion has resolved, vitals are stable. Denies any fever, chills, nausea, vomiting, diarrhea, constipation or any urinary symptoms. 04/23/2019-patient is comfortable in the dialysis chair communicating okay. He has extremely difficulty in hearing. Able to give me his date of and location. No acute events in the last 24 hours. Afebrile. 04/24/2019-patient is comfortably in the chair eating his breakfast. Not in distress. Communicating okay. no Acute events in the last 24 hours. Afebrile. Reason For Visit: SEPSIS,FEVER,HYPOTENSION,ACUTE ENCEPHALOPATHY Physical Exam Vital Signs: Temp Pulse Resp BP Pulse Ox 97.3 F 61 16 114/55 L 96 04/24/19 06:59 04/24/19 07:50 04/24/19 07:50 04/24/19 06:59 04/24/19 07:50 Intake & Output 04/23/19 04/24/19 04/25/19 06:59 06:59 06:59 Intake Total 2820 620 Output Total 1050 1300 Balance 1770 -680 Weight 83 kg 82.2 kg General appearance: PRESENT: no acute distress Head exam: PRESENT: normocephalic Eye exam: PRESENT: PERRLA Mouth exam: PRESENT: moist, tongue midline Teeth exam: PRESENT: poor dentation Neck exam: ABSENT: carotid bruit, JVD, lymphadenopathy, thyromegaly Respiratory exam: PRESENT: decreased breath sounds Cardiovascular exam: PRESENT: RRR. ABSENT: diastolic murmur, rubs, systolic murmur Vascular exam: PRESENT: normal capillary refill GI/Abdominal exam: PRESENT: normal bowel sounds, soft. ABSENT: distended, guarding, mass, organolmegaly, rebound, tenderness Rectal exam: PRESENT: deferred Extremities exam: PRESENT: full ROM, other - av Fistula present on the left arm.. ABSENT: calf tenderness, clubbing, pedal edema Neurological exam: PRESENT: alert Psychiatric exam: PRESENT: appropriate affect, normal mood. ABSENT: homicidal ideation, suicidal ideation Results Laboratory Results: 04/24/19 04:36 04/24/19 04:36 04/24/19 04/24/19 04:36 04:36 WBC 9.4 RBC 3.32 L Hgb 10.6 L Hct 30.9 L MCV 93 MCH 31.8 MCHC 34.1 RDW 13.5 Plt Count 154 Seg Neutrophils % 82.8 H Sodium 138.3 Potassium 5.3 H Chloride 101 Carbon Dioxide 27 Anion Gap 10 BUN 42 H Creatinine 4.22 H Est GFR ( Amer) 17 L Glucose 128 H Calcium 8.6 Magnesium 2.1 Total Bilirubin 0.3 AST 24 Alkaline Phosphatase 66 Total Protein 6.0 L Albumin 3.2 L 04/21/19 17:52 Troponin I 0.055 Impressions: Chest X-Ray 04/21/19 22:01 IMPRESSION: No acute disease. copyright 2010 [employer]- All Rights Reserved Assessment and Plan - Plan Summary Summary: Patient is admitted and will be treated on the sepsis protocol in [facility]. He will receive vasopressor if necessary after adequate fluid volume replacement. Will be treated with acetaminophen and his mental status will be monitored closely with neuro checks. He will receive usual supportive and symptomatic cares as required. Operatory evaluations will be as outlined per sepsis protocol. Antibiotic therapy will be per the sepsis protocol. (1) Severe sepsis with acute organ dysfunction Is this a current diagnosis for this admission?: Yes Plan: Evidenced by leukocytosis, encephalopathy, elevated lactic acid, hypertension, fever. Likely source urine. Leukocytosis improving, encephalopathy resolved, lactic acid WNL, normotensive, afebrile. Was started on volume resuscitation and IV empiric antibiotics. Currently euvolemic, DC IV fluids as patient is end-stage renal disease. Continue empiric IV antibiotics. Transition to p.o. once appropriate. Follow-up cultures. 04/23/2019-patient came in with elevated WBC count, acute encephalopathy, elevated lactic acid levels, fever. Blood pressure today is 98/42 T-max is 97.8. WBC count is 10,200 normalized. Sepsis is resolving. Patient alert and awake communicating well looks like his mental status is back to baseline. 04/24/2019-patient is afebrile T-max is 97.7 presently on IV Rocephin for E. coli in the urine. Plan is to continue the antibiotic therapy and probably discharge home tomorrow. (2) End-stage renal disease on hemodialysis Is this a current diagnosis for this admission?: Yes Plan: On hemodialysis Sunday. Continue renal diet, monitor volume status, monitor electrolytes and replace as needed. Consult nephrology for continued hemodialysis while inpatient. Outpatient nep hrology follow-up. 04/23/2019-patient has history of end-stage renal disease on hemodialysis is gett ing the dialysis today. Nephrology on board. 04/24/2019-patient is going to get another session of dialysis tomorrow prior to discharge. (3) Acute encephalopathy Is this a current diagnosis for this admission?: Yes Plan: Acute metabolic encephalopathy most likely due to underlying sepsis. Resolved. Plan as per #1. 04/23/2019-altered mental status/acute encephalopathy most likely secondary to sepsis resolving. His mental status is back to baseline. (4) UTI (urinary tract infection) Qualifiers: Urinary tract infection type: acute pyelonephritis Qualified Code(s): N10 - Acute pyelonephritis Is this a current diagnosis for this admission?: Yes Plan: Urine cultures came back positive for E. coli pansensitive. pt Is presently on meropenem. Plan is to discontinue meropenem and start him on ceftriaxone. 04/24/2019-urine cultures came back positive for E. coli and the patient is on IV Rocephin. Afebrile. (5) Anemia, chronic disease Is this a current diagnosis for this admission?: Yes Plan: Hemoglobin at baseline. No sign of bleeding. Continue monitoring H&H. Outpatient nephrology follow-up. (6) Coronary artery disease Qualifiers: Coronary Disease-Associated Artery/Lesion type: [place] artery [place] vs. transplanted heart: iroquois heart Associated angina: without angina Qualified Code(s): I25.10 - Atherosclerotic heart disease of [place] coronary artery without angina pectoris Is this a current diagnosis for this admission?: Yes Plan: Denies any anginal symptoms. Continue antiplatelets, nitrates, statins. (7) COPD (chronic obstructive pulmonary disease) Qualifiers: COPD type: unspecified COPD Qualified Code(s): J44.9 - Chronic obstructive pulmonary disease, unspecified Is this a current diagnosis for this admission?: Yes Plan: Mild wheezing on respiratory examination. Former smoker. Not on home O2. DuoNeb's, p.o. steroids, PRN BiPAP, supplemental oxygen, flutter valve, incentive spirometer. 04/24/2019-on examination chest bilateral it was decreased no wheezing no crepitations. Pulse ox is 97% on 2 L. To discontinue p.o. prednisone from today.
[2019-04-24] MEDS: SODIUM BICARBONATE 650 MG TABLET PO SCH ×2 (09:32→21:01)
[2019-04-24] MEDS: MAGNESIUM OXIDE 400 MG TABLET PO SCH (09:33)
[2019-04-24] MEDS: CETIRIZINE 10 MG TABLET PO SCH (09:33)
[2019-04-24] MEDS: CEFTRIAXONE 2 GM/D5W RTU 2 GM/50 ML RTUPB IV SCH (09:33)
[2019-04-24] MEDS: ISOSORBIDE DINITRATE 20 MG TABLET PO SCH ×2 (09:33→21:01)
[2019-04-24] MEDS: CALCIUM CARBONATE 500 MG TAB.CHEW PO SCH (09:33)
[2019-04-24] MEDS: GUAIFENESIN SYRP 200 MG/10 ML UDC PO PRN (12:09)
[2019-04-24] MEDS: ASPIRIN 81 MG TABLET, ENT COATED PO SCH (21:01)
[2019-04-24] MEDS: FOLIC ACID/VITAMIN B COMP W-C CAPSULE PO SCH (21:01)
[2019-04-24] MEDS: ATORVASTATIN CALCIUM 20 MG TABLET PO SCH (21:01)
[2019-04-25] MEDS: PANTOPRAZOLE SODIUM 40 MG TABLET.DR PO SCH ×2 (05:03→17:27)
[2019-04-25] MEDS: GUAIFENESIN SYRP 200 MG/10 ML UDC PO PRN (05:03)
[2019-04-25 06:25] LABS: ABSOLUTE EOSINOPHILS # (AUTO) 0.2 10^3/uL (0.0-0.6); ABSOLUTE LYMPHOCYTES (AUTO) 1.7 10^3/uL (0.5-4.7); ABSOLUTE MONOCYTES (AUTO) 0.8 10^3/uL (0.1-1.4); ABSOLUTE NEUT (AUTO) 6.3 10^3/uL (1.7-8.2); BASOPHILS % (AUTO) 0.5 % (0-2); EOSINOPHILS % (AUTO) 1.9 % (0-6); HEMATOCRIT 33.4 % (37.9-51.0); HEMOGLOBIN 11.1 g/dL (13.5-17.0); LYMPHOCYTES % (AUTO) 18.8 % (13-45); MEAN CORPUSCULAR HEMOGLOBIN 31.2 pg (27.0-33.4); MEAN CORPUSCULAR HGB CONC 33.1 g/dL (32.0-36.0); MEAN CORPUSCULAR VOLUME 94 fl (80-97); MONOCYTES % (AUTO) 9.2 % (3-13); PLATELET COUNT 167 10^3/uL (150-450); RED BLOOD COUNT 3.54 10^6/uL (4.35-5.55); RED CELL DISTRIBUTION WIDTH 13.4 % (11.5-14.0); SEGMENTED NEUTROPHILS % (AUTO) 69.6 % (42-78); TOTAL CELLS COUNTED % (AUTO) 100 %
[2019-04-25 06:41] LABS: ALBUMIN 3.7 g/dL (3.5-5.0); ALKALINE PHOSPHATASE 74 U/L (38-126); ANION GAP 12 (5-19); ASPARTATE AMINO TRANSFERASE 50 U/L (17-59); BILIRUBIN,DIRECT 0.3 mg/dL (0.0-0.4); BILIRUBIN,TOTAL 0.4 mg/dL (0.2-1.3); BLOOD UREA NITROGEN 61 mg/dL (7-20); CALCIUM 8.9 mg/dL (8.4-10.2); CARBON DIOXIDE 25 mmol/L (22-30); CHLORIDE 105 mmol/L (98-107); GLUCOSE 100 mg/dL (75-110); TOTAL PROTEIN 6.5 g/dL (6.3-8.2)
[2019-04-25] MEDS: IPRATROPIUM/ALBUTEROL 0.5-2.5 MG/3 ML AMPUL NEB SCH ×3 (08:37→20:27)
--- NOTE | 2019-04-25 09:01 | PDOC PROGRESS REPORT ---
Subjective Progress Note for:: 04/24/19 Subjective:: 78 year old male who presented to the emergency room with acute confusion. His son brought him to the emergency room and answers questions as his father is unable to participate in his historical record due to his acute encephalopathy. His son relates that the patient went to dialysis as usual earlier today and after completing dialysis left the dialysis center but was sitting outside for 2 to 3 hours when the dialysis staff went out to speak with him and found that he was disoriented and had a fever. He was subsequently transported to the emergency room by his son for evaluation. His son admits prior similar episodes usually resulting from a urinary tract infection or a pulmonary infection. His son relates that the dialysis staff noted that he had a cough this morning and took some cough drops and he also had an episode of diarrhea yesterday after e ating fried foods which is not uncommon for him. His son has not identified any additional associated or accompanying signs or symptoms, nor has he identified any additional aggravating or ameliorating factors for his father's confusion. In the emergency room the patient was found to be febrile with a fever of 103.1 F and had an elevated white blood count at 12,600 with modest hypotension (MAP of 63 and 68) and an elevated serum lactate. Patient was subsequently admitted to [facility] for treatment of his severe sepsis. 04/22/2019. Patient comfortably resting in bed, alert oriented x3, confusion has resolved, vitals are stable. Denies any fever, chills, nausea, vomiting, diarrhea, constipation or any urinary symptoms. 04/23/2019-patient is comfortable in the dialysis chair communicating okay. He has extremely difficulty in hearing. Able to give me his date of and location. No acute events in the last 24 hours. Afebrile. 04/24/2019-patient is comfortably in the chair eating his breakfast. Not in distress. Communicating okay. no Acute events in the last 24 hours. Afebrile. 04/25/2019-patient in the dialysis unit today comfortable in the dialysis chair. Expressing desire to go home. Sputum cultures came back positive for gram- positive cocci today. Urine culture is also positive for E. coli and presently on IV Rocephin. T-max is 98.5. No acute events in the last 24 hours. Afebrile. Reason For Visit: SEPSIS,FEVER,HYPOTENSION,ACUTE ENCEPHALOPATHY Physical Exam Vital Signs: Temp Pulse Resp BP Pulse Ox 98.5 F 80 17 119/56 L 97 04/24/19 22:46 04/25/19 08:37 04/25/19 08:37 04/24/19 22:46 04/25/19 08:37 Intake & Output 04/24/19 04/25/19 04/26/19 06:59 06:59 06:59 Intake Total 620 1565 Output Total 1300 600 Balance -680 965 Weight 82.2 kg 84.3 kg General appearance: PRESENT: no acute distress, cooperative Head exam: PRESENT: atraumatic Eye exam: PRESENT: PERRLA Mouth exam: PRESENT: dry mucosa Teeth exam: PRESENT: poor dentation Neck exam: ABSENT: carotid bruit, JVD, lymphadenopathy, thyromegaly Respiratory exam: PRESENT: decreased breath sounds Cardiovascular exam: PRESENT: tachycardia GI/Abdominal exam: PRESENT: normal bowel sounds, soft. ABSENT: distended, g uarding, mass, organolmegaly, rebound, tenderness Rectal exam: PRESENT: deferred Extremities exam: PRESENT: full ROM. ABSENT: calf tenderness, clubbing, pedal edema Neurological exam: PRESENT: alert, awake, oriented to person, oriented to place, oriented to time, oriented to situation, CN II-XII grossly intact. ABSENT: mo tor sensory deficit Psychiatric exam: PRESENT: appropriate affect, normal mood. ABSENT: homicidal ideation, suicidal ideation Results Laboratory Results: 04/25/19 06:14 04/25/19 06:14 04/25/19 04/25/19 06:14 06:14 WBC 9.0 RBC 3.54 L Hgb 11.1 L Hct 33.4 L MCV 94 MCH 31.2 MCHC 33.1 RDW 13.4 Plt Count 167 Seg Neutrophils % 69.6 Sodium 142.0 Potassium 5.0 Chloride 105 Carbon Dioxide 25 Anion Gap 12 BUN 61 H Creatinine 5.79 H Est GFR ( Amer) 12 L Glucose 100 Calcium 8.9 Magnesium 2.0 Total Bilirubin 0.4 AST 50 Alkaline Phosphatase 74 Total Protein 6.5 Albumin 3.7 04/21/19 17:52 Urostomy Urine Culture - Final Escherichia Coli Enterococcus Casseliflavus 04/21/19 17:52 Troponin I 0.055 Impressions: Chest X-Ray 04/21/19 22:01 IMPRESSION: No acute disease. copyright 2011 [employer]- All Rights Reserved Assessment and Plan - Plan Summary Summary: Patient is admitted and will be treated on the sepsis protocol in [facility]. He will receive vasopressor if necessary after adequate fluid volume replacement. Will be treated with acetaminophen and his mental status will be monitored closely wi th neuro checks. He will receive usual supportive and symptomatic cares as required. Operatory evaluations will be as outlined per sepsis protocol. Antibiotic therapy will be per the sepsis protocol. (1) Severe sepsis with acute organ dysfunction Is this a current diagnosis for this admission?: Yes Plan: Evidenced by leukocytosis, encephalopathy, elevated lactic acid, hypertension, fever. Likely source urine. Leukocytosis improving, encephalopathy resolved, lactic acid WNL, normotensive, afebrile. Was started on volume resuscitation and IV empiric antibiotics. Currently euvolemic, DC IV fluids as patient is end-stage renal disease. Continue empiric IV antibiotics. Transition to p.o. once appropriate. Follow-up cultures. 04/23/2019-patient came in with elevated WBC count, acute encephalopathy, elevated lactic acid levels, fever. Blood pressure today is 98/42 T-max is 97.8. WBC count is 10,200 normalized. Sepsis is resolving. Patient alert and awake communicating well looks like his mental status is back to baseline. 04/24/2019-patient is afebrile T-max is 97.7 presently on IV Rocephin for E. coli in the urine. Plan is to continue the antibiotic therapy and probably discharge home tomorrow. 04/25/2019-patient admitted with severe sepsis with acute organ dysfunction hypotension resolved. Urine cultures came back positive for E. coli on IV Rocephin. Sputum cultures came back gram-positive cocci in clusters. Patient may have to stay over the weekend for continued addition of the IV antibiotic therapy. (2) End-stage renal disease on hemodialysis Is this a current diagnosis for this admission?: Yes Plan: On hemodialysis Sunday. Continue renal diet, monitor volume status, monitor electrolytes and replace as needed. Consult nephrology for continued hemodialysis while inpatient. Outpatient nephrology follow-up. 04/23/2019-patient has history of end-stage renal disease on hemodialysis is getting the dialysis today. Nephrology on board. 04/24/2019-patient is going to get another session of dialysis tomorrow prior to discharge. 03/26/2019-patient is in the dialysis unit today comfortable in the chair communicating okay. Not in distress. Vital signs are stable. (3) Acute encephalopathy Is this a current diagnosis for this admission?: Yes Plan: Acute metabolic encephalopathy most likely due to underlying sepsis. Resolved. Plan as per #1. 04/23/2019-altered mental status/acute encephalopathy most likely secondary to sepsis resolving. His mental status is back to baseline. 04/25/2019-patient admitted with acute encephalopathy/altered mental status most likely secondary to sepsis which was resolving. (4) UTI (urinary tract infection) Qualifiers: Urinary tract infection type: acute pyelonephritis Qualified Code(s): N10 - Acute pyelonephritis Is this a current diagnosis for this admission?: Yes Plan: Urine cultures came back positive for E. coli pansensitive. pt Is presently on meropenem. Plan is to discontinue meropenem and start him on ceftriaxone. 04/24/2019-urine cultures came back positive for E. coli and the patient is on IV Rocephin. Afebrile. 04/25/2019-patient is receiving IV Rocephin for E. coli. (5) Anemia, chronic disease Is this a current diagnosis for this admission?: Yes Plan: Hemoglobin at baseline. No sign of bleeding. Continue monitoring H&H. Outpatient nephrology follow-up. 04/25/2019-patient's hemoglobin is 11.1 stable. (6) Coronary artery disease Qualifiers: Coronary Disease-Associated Artery/Lesion type: [place] artery [place] vs. transplanted heart: [place] heart Associated angina: without angina Qualified Code(s): I25.10 - Atherosclerotic heart disease of [place] coronary artery without angina pectoris Is this a current diagnosis for this admission?: Yes Plan: Denies any anginal symptoms. Continue antiplatelets, nitrates, statins. (7) COPD (chronic obstructive pulmonary disease) Qualifiers: COPD type: unspecified COPD Qualified Code(s): J44.9 - Chronic obstructive pulmonary disease, unspecified Is this a current diagnosis for this admission?: Yes Plan: Mild wheezing on respiratory examination. Former smoker. Not on home O2. DuoNeb's, p.o. steroids, PRN BiPAP, supplemental oxygen, flutter valve, incentive spirometer. 04/24/2019-on examination chest bilateral it was decreased no wheezing no crepitations. Pulse ox is 97% on 2 L. To discontinue p.o. prednisone from today.
--- NOTE | 2019-04-25 09:32 | PDOC PROGRESS REPORT ---
Subjective Progress Note for:: 04/25/19 Subjective:: I am seeing the patient on dialysis this morning. Patient is in his baseline mental state. He is still coughing but cannot expectorate any phlegm. He is tolerating dialysis this morning without any problems. Reason For Visit: SEPSIS,FEVER,HYPOTENSION,ACUTE ENCEPHALOPATHY Physical Exam Vital Signs: Temp Pulse Resp BP Pulse Ox 98.5 F 80 17 119/56 L 97 04/24/19 22:46 04/25/19 08:37 04/25/19 08:37 04/24/19 22:46 04/25/19 08:37 Intake & Output 04/24/19 04/25/19 04/26/19 06:59 06:59 06:59 Intake Total 620 1565 Output Total 1300 600 Balance -680 965 Weight 82.2 kg 84.3 kg Vitals during dialysis: Blood pressure 148/71, heart rate of 74, blood flow rate of 400 mL/min and dialysate flow rate of 800 mL/min. Exam: General appearance: PRESENT: no acute distress, cooperative, well-developed, well-nourished Head exam: PRESENT: atraumatic, normocephalic; he is hard of hearing Eye exam: PRESENT: conjunctiva slightly pale, PERRLA. ABSENT: scleral icterus Neck exam: ABSENT: JVD Respiratory exam: PRESENT: Coarse breath sounds. Positive diffuse rhonchi ABSENT: crackles, rales, unlabored, wheezes Cardiovascular exam: PRESENT: Regular rate rhythm -+S1, +S2. ABSENT: diastolic murmur, systolic murmur GI/Abdominal exam: PRESENT: normal bowel sounds, soft. ABSENT: guarding, mass, tenderness Extremities exam: ABSENT: No edema Neurological exam: PRESENT: alert, awake, oriented to person, place and time. Skin exam: PRESENT: dry, warm, Results Laboratory Results: 04/25/19 06:14 04/25/19 06:14 04/25/19 04/25/19 06:14 06:14 WBC 9.0 RBC 3.54 L Hgb 11.1 L Hct 33.4 L MCV 94 MCH 31.2 MCHC 33.1 RDW 13.4 Plt Count 167 Seg Neutrophils % 69.6 Sodium 142.0 Potassium 5.0 Chloride 105 Carbon Dioxide 25 Anion Gap 12 BUN 61 H Creatinine 5.79 H Est GFR ( Amer) 12 L Glucose 100 Calcium 8.9 Magnesium 2.0 Total Bilirubin 0.4 AST 50 Alkaline Phosphatase 74 Total Protein 6.5 Albumin 3.7 04/21/19 17:52 Urostomy Urine Culture - Final Escherichia Coli Enterococcus Casseliflavus 04/21/19 17:52 Troponin I 0.055 Impressions: Chest X-Ray 04/21/19 22:01 IMPRESSION: No acute disease. copyright 2010 [employer]- All Rights Reserved Assessment & Plan - Diagnosis (1) End-stage renal disease on hemodialysis Is this a current diagnosis for this admission?: Yes Plan: We will do dialysis today for 3 hours, using the patient's AV fistula, with 2 potassium bath, blood flow rate of 400 mL per minute, dialysate flow rate of 800 mL per minute, ultrafiltration 1 L as tolerated, no heparin and no Procrit. Discussed treatment plan with her dialysis nurse. Patient will be monitored throughout dialysis treatment. (2) Acute UTI (urinary tract infection) Is this a current diagnosis for this admission?: Yes Plan: Due to E. coli. Patient on IV ceftriaxone. Per hospitalist service. (3) Acute encephalopathy Is this a current diagnosis for this admission?: Yes Plan: Secondary to acute infection. Currently resolved and at his baseline mental state. (4) Anemia in chronic kidney disease (CKD) Qualifiers: Chronic kidney disease stage: on chronic dialysis Qualified Code(s): N18.6 - End stage renal disease; D63.1 - Anemia in chronic kidney disease; D63.1 - Anemia in chronic kidney disease; Z99.2 - Dependence on renal dialysis; Z99.2 - Dependence on renal dialysis; Z99.2 - Dependence on renal dialysis; Z99.2 - Dependence on renal dialysis Is this a current diagnosis for this admission?: Yes Plan: Patient does not need Procrit today. (5) Acute bronchitis Qualifiers: Bronchitis organism: unspecified organism Qualified Code(s): J20.9 - Acute bronchitis, unspecified Is this a current diagnosis for this admission?: Yes Plan: Sputum culture positive for gram-positive cocci from preliminary results. (6) COPD (chronic obstructive pulmonary disease) Qualifiers: COPD type: unspecified COPD Qualified Code(s): J44.9 - Chronic obstructive pulmonary disease, unspecified Is this a current diagnosis for this admission?: Yes - Time Time with patient: 15-25 minutes
[2019-04-25] MEDS: CETIRIZINE 10 MG TABLET PO SCH (11:41)
[2019-04-25] MEDS: CALCIUM CARBONATE 500 MG TAB.CHEW PO SCH (11:41)
[2019-04-25] MEDS: ISOSORBIDE DINITRATE 20 MG TABLET PO SCH ×2 (11:41→22:39)
[2019-04-25] MEDS: SODIUM BICARBONATE 650 MG TABLET PO SCH ×2 (11:41→22:39)
[2019-04-25] MEDS: MAGNESIUM OXIDE 400 MG TABLET PO SCH (11:41)
[2019-04-25] MEDS: CEFTRIAXONE 2 GM/D5W RTU 2 GM/50 ML RTUPB IV SCH (11:42)
[2019-04-25] MEDS: ASPIRIN 81 MG TABLET, ENT COATED PO SCH (22:39)
[2019-04-25] MEDS: FOLIC ACID/VITAMIN B COMP W-C CAPSULE PO SCH (22:39)
[2019-04-25] MEDS: ATORVASTATIN CALCIUM 20 MG TABLET PO SCH (22:39)
[2019-04-26] MEDS: PANTOPRAZOLE SODIUM 40 MG TABLET.DR PO SCH ×2 (05:38→16:36)
[2019-04-26] MEDS: IPRATROPIUM/ALBUTEROL 0.5-2.5 MG/3 ML AMPUL NEB SCH ×3 (08:09→20:27)
--- NOTE | 2019-04-26 08:40 | PDOC PROGRESS REPORT ---
Subjective Progress Note for:: 04/26/19 Subjective:: 78 year old male who presented to the emergency room with acute confusion. His son brought him to the emergency room and answers questions as his father is unable to participate in his historical record due to his acute encephalopathy. His son relates that the patient went to dialysis as usual earlier today and after completing dialysis left the dialysis center but was sitting outside for 2 to 3 hours when the dialysis staff went out to speak with him and found that he was disoriented and had a fever. He was subsequently transported to the emergency room by his son for evaluation. His son admits prior similar episodes usually resulting from a urinary tract infection or a pulmonary infection. His son relates that the dialysis staff noted that he had a cough this morning and took some cough drops and he also had an episode of diarrhea yesterday after e ating fried foods which is not uncommon for him. His son has not identified any additional associated or accompanying signs or symptoms, nor has he identified any additional aggravating or ameliorating factors for his father's confusion. In the emergency room the patient was found to be febrile with a fever of 103.1 F and had an elevated white blood count at 12,600 with modest hypotension (MAP of 63 and 68) and an elevated serum lactate. Patient was subsequently admitted to [facility] for treatment of his severe sepsis. 04/22/2019. Patient comfortably resting in bed, alert oriented x3, confusion has resolved, vitals are stable. Denies any fever, chills, nausea, vomiting, diarrhea, constipation or any urinary symptoms. 04/23/2019-patient is comfortable in the dialysis chair communicating okay. He has extremely difficulty in hearing. Able to give me his date of and location. No acute events in the last 24 hours. Afebrile. 04/24/2019-patient is comfortably in the chair eating his breakfast. Not in distress. Communicating okay. no Acute events in the last 24 hours. Afebrile. 04/25/2019-patient in the dialysis unit today comfortable in the dialysis chair. Expressing desire to go home. Sputum cultures came back positive for gram- positive cocci today. Urine culture is also positive for E. coli and presently on IV Rocephin. T-max is 98.5. No acute events in the last 24 hours. Afebrile. 04/26/2019-shunt is comfortably in the bed expressing desire to go home. Sputum culture pending back positive for gram-positive cocci in clusters. Urine culture is positive for E. coli on IV Rocephin. Afebrile. He has a successful dialysis yesterday. Reason For Visit: SEPSIS,FEVER,HYPOTENSION,ACUTE ENCEPHALOPATHY Physical Exam Vital Signs: Temp Pulse Resp BP Pulse Ox 98.5 F 84 18 113/54 L 90 L 04/26/19 08:18 04/26/19 08:18 04/26/19 08:18 04/26/19 08:18 04/26/19 08:18 Intake & Output 04/25/19 04/26/19 04/27/19 06:59 06:59 06:59 Intake Total 1565 50 Output Total 600 1250 Balance 965 -1200 Weight 84.3 kg 80.1 kg General appearance: PRESENT: no acute distress, cooperative, thin Head exam: PRESENT: atraumatic Eye exam: PRESENT: PERRLA Mouth exam: PRESENT: dry mucosa Teeth exam: PRESENT: poor dentation Neck exam: ABSENT: carotid bruit, JVD, lymphadenopathy, thyromegaly Respiratory exam: PRESENT: decreased breath sounds Cardiovascular exam: PRESENT: RRR. ABSENT: diastolic murmur, rubs, systolic mu rmur GI/Abdominal exam: PRESENT: normal bowel sounds, soft. ABSENT: distended, guarding, mass, organolmegaly, rebound, tenderness Rectal exam: PRESENT: deferred Extremities exam: PRESENT: full ROM. ABSENT: calf tenderness, clubbing, pedal edema Neurological exam: PRESENT: alert, awake, oriented to person, oriented to place, oriented to time, oriented to situation, CN II-XII grossly intact. ABSENT: motor sensory deficit Psychiatric exam: PRESENT: appropriate affect, normal mood. ABSENT: homicidal ideation, suicidal ideation Skin exam: PRESENT: dry, intact, warm. ABSENT: cyanosis, rash Results Laboratory Results: 04/25/19 06:14 04/25/19 06:14 04/22/19 13:30 Sputum Gram Stain - Final 04/21/19 17:52 Troponin I 0.055 Impressions: Chest X-Ray 04/21/19 22:01 IMPRESSION: No acute disease. copyright 2010 [email or web address]- All Rights Reserved Assessment and Plan - Plan Summary Summary: Patient is admitted and will be treated on the sepsis protocol in [facility]. He will receive vasopressor if necessary after adequate fluid volume replacement. Will be treated with acetaminophen and his mental status will be monitored closely with neuro checks. He will receive usual supportive and symptomatic cares as required. Operatory evaluations will be as outlined per sepsis protocol. Antibiotic therapy will be per the sepsis protocol. (1) Severe sepsis with acute organ dysfunction Is this a current diagnosis for this admission?: Yes Plan: Evidenced by leukocytosis, encephalopathy, elevated lactic acid, hypertension, fever. Likely source urine. Leukocytosis improving, encephalopathy resolved, lactic acid WNL, normotensive, afebrile. Was started on volume resuscitation and IV empiric antibiotics. Currently euvolemic, DC IV fluids as patient is end-stage renal disease. Continue empiric IV antibiotics. Transition to p.o. once appropriate. Follow-up cultures. 04/23/2019-patient came in with elevated WBC count, acute encephalopathy, elevated lactic acid levels, fever. Blood pressure today is 98/42 T-max is 97.8. WBC count is 10,200 normalized. Sepsis is resolving. Patient alert and awake communicating well looks like his mental status is back to baseline. 04/24/2019-patient is afebrile T-max is 97.7 presently on IV Rocephin for E. coli in the urine. Plan is to continue the antibiotic therapy and probably discharge home tomorrow. 04/25/2019-patient admitted with severe sepsis with acute organ dysfunction hypotension resolved. Urine cultures came back positive for E. coli on IV Rocephin. Sputum cultures came back gram-positive cocci in clusters. Patient may have to stay over the weekend for continued addition of the IV antibiotic therapy. 04/26/2019-patient admitted with severe sepsis and acute organ failure which was resolved. Culture positive for gram-positive cocci in clusters urine culture is positive for E. coli. Presently on IV Rocephin and is afebrile. (2) End-stage renal disease on hemodialysis Is this a current diagnosis for this admission?: Yes Plan: On hemodialysis Sunday. Continue renal diet, monitor volume status, monitor electrolytes and replace as needed. Consult nephrology for continued hemodialysis while inpatient. Outpatient nephrology follow-up. 04/23/2019-patient has history of end-stage renal disease on hemodialysis is getting the dialysis today. Nephrology on board. 04/24/2019-patient is going to get another session of dialysis tomorrow prior to discharge. 03/26/2019-patient is in the dialysis unit today comfortable in the chair shankar esposito. Not in distress. Vital signs are stable. (3) Acute encephalopathy Is this a current diagnosis for this admission?: Yes Plan: Acute metabolic encephalopathy most likely due to underlying sepsis. Resolved. Plan as per #1. 04/23/2019-altered mental status/acute encephalopathy most likely secondary to sepsis resolving. His mental status is back to baseline. 04/25/2019-patient admitted with acute encephalopathy/altered mental status most likely secondary to sepsis which was resolving. 04/26/2019-patient admitted with acute encephalopathy most likely secondary to sepsis and multiorgan failure patient's mental status back to baseline. (4) UTI (urinary tract infection) Qualifiers: Urinary tract infection type: acute pyelonephritis Qualified Code(s): N10 - Acute pyelonephritis Is this a current diagnosis for this admission?: Yes Plan: Urine cultures came back positive for E. coli pansensitive. pt Is presently on meropenem. Plan is to discontinue meropenem and start him on ceftriaxone. 04/24/2019-urine cultures came back positive for E. coli and the patient is on IV Rocephin. Afebrile. 04/25/2019-patient is receiving IV Rocephin for E. coli. (5) Anemia, chronic disease Is this a current diagnosis for this admission?: Yes Plan: Hemoglobin at baseline. No sign of bleeding. Continue monitoring H&H. Outpatient nephrology follow-up. 04/25/2019-patient's hemoglobin is 11.1 stable. (6) Coronary artery disease Qualifiers: Coronary Disease-Associated Artery/Lesion type: enterprise artery [place] vs. transplanted heart: enterprise heart Associated angina: without angina Qualified Code(s): I25.10 - Atherosclerotic heart disease of [place] coronary artery without angina pectoris Is this a current diagnosis for this admission?: Yes Plan: Denies any anginal symptoms. Continue antiplatelets, nitrates, statins. (7) COPD (chronic obstructive pulmonary disease) Qualifiers: COPD type: unspecified COPD Qualified Code(s): J44.9 - Chronic obstructive pulmonary disease, unspecified Is this a current diagnosis for this admission?: Yes Plan: Mild wheezing on respiratory examination. Former smoker. Not on home O2. DuoNeb's, p.o. steroids, PRN BiPAP, supplemental oxygen, flutter valve, incentive spirometer. 04/24/2019-on examination chest bilateral it was decreased no wheezing no crepitations. Pulse ox is 97% on 2 L. To discontinue p.o. prednisone from today. 04/26/2019-patient pulse ox is 91% on 3 L. Stable. Plan is to continue the present management.
--- NOTE | 2019-04-26 08:49 | PDOC PROGRESS REPORT ---
Subjective Progress Note for:: 04/26/19 Subjective:: 78 year old male who presented to the emergency room with acute confusion. His son brought him to the emergency room and answers questions as his father is unable to participate in his historical record due to his acute encephalopathy. His son relates that the patient went to dialysis as usual earlier today and after completing dialysis left the dialysis center but was sitting outside for 2 to 3 hours when the dialysis staff went out to speak with him and found that he was disoriented and had a fever. He was subsequently transported to the emergency room by his son for evaluation. His son admits prior similar episodes usually resulting from a urinary tract infection or a pulmonary infection. His son relates that the dialysis staff noted that he had a cough this morning and took some cough drops and he also had an episode of diarrhea yesterday after e ating fried foods which is not uncommon for him. His son has not identified any additional associated or accompanying signs or symptoms, nor has he identified any additional aggravating or ameliorating factors for his father's confusion. In the emergency room the patient was found to be febrile with a fever of 103.1 F and had an elevated white blood count at 12,600 with modest hypotension (MAP of 63 and 68) and an elevated serum lactate. Patient was subsequently admitted to [facility] for treatment of his severe sepsis. 04/22/2019. Patient comfortably resting in bed, alert oriented x3, confusion has resolved, vitals are stable. Denies any fever, chills, nausea, vomiting, diarrhea, constipation or any urinary symptoms. 04/23/2019-patient is comfortable in the dialysis chair communicating okay. He has extremely difficulty in hearing. Able to give me his date of and location. No acute events in the last 24 hours. Afebrile. 04/24/2019-patient is comfortably in the chair eating his breakfast. Not in distress. Communicating okay. no Acute events in the last 24 hours. Afebrile. 04/25/2019-patient in the dialysis unit today comfortable in the dialysis chair. Expressing desire to go home. Sputum cultures came back positive for gram- positive cocci today. Urine culture is also positive for E. coli and presently on IV Rocephin. T-max is 98.5. No acute events in the last 24 hours. Afebrile. 04/26/2019-pt is comfortably in the bed expressing desire to go home. Sputum culture pending back positive for gram-positive cocci in clusters. Urine culture is positive for E. coli on IV Rocephin. Afebrile. He has a successful dialysis yesterday. Reason For Visit: SEPSIS,FEVER,HYPOTENSION,ACUTE ENCEPHALOPATHY Physical Exam Vital Signs: Temp Pulse Resp BP Pulse Ox 98.5 F 84 18 113/54 L 90 L 04/26/19 08:18 04/26/19 08:18 04/26/19 08:18 04/26/19 08:18 04/26/19 08:18 Intake & Output 04/25/19 04/26/19 04/27/19 06:59 06:59 06:59 Intake Total 1565 50 Output Total 600 1250 Balance 965 -1200 Weight 84.3 kg 80.1 kg General appearance: PRESENT: no acute distress Head exam: PRESENT: normocephalic Eye exam: PRESENT: PERRLA Mouth exam: PRESENT: moist, tongue midline Teeth exam: PRESENT: poor dentation Neck exam: ABSENT: carotid bruit, JVD, lymphadenopathy, thyromegaly Respiratory exam: PRESENT: decreased breath sounds GI/Abdominal exam: PRESENT: normal bowel sounds, soft. ABSENT: distended, guarding, mass, organolmegaly, rebound, tenderness Rectal exam: PRESENT: deferred Extremities exam: PRESENT: full ROM, other - AV fistula in the left arm. Func tioning well.. ABSENT: calf tenderness, clubbing, pedal edema Neurological exam: PRESENT: alert, awake, oriented to person, oriented to place, oriented to time, oriented to situation, CN II-XII grossly intact. ABSENT: motor sensory deficit Psychiatric exam: PRESENT: appropriate affect, normal mood. ABSENT: homicidal ideation, suicidal ideation Results Laboratory Results: 04/25/19 06:14 04/25/19 06:14 04/22/19 13:30 Sputum Gram Stain - Final 04/21/19 17:52 Troponin I 0.055 Impressions: Chest X-Ray 04/21/19 22:01 IMPRESSION: No acute disease. copyright 2010 [employer]- All Rights Reserved Assessment and Plan - Plan Summary Summary: Patient is admitted and will be treated on the sepsis protocol in [facility]. He will receive vasopressor if necessary after adequate fluid volume replacement. Will be treated with acetaminophen and his mental status will be monitored closely with neuro checks. He will receive usual supportive and symptomatic cares as required. Operatory evaluations will be as outlined per sepsis protocol. Antibiotic therapy will be per the sepsis protocol. (1) Severe sepsis with acute organ dysfunction Is this a current diagnosis for this admission?: Yes Plan: Evidenced by leukocytosis, encephalopathy, elevated lactic acid, hypertension, fever. Likely source urine. Leukocytosis improving, encephalopathy resolved, lactic acid WNL, normotensive, afebrile. Was started on volume resuscitation and IV empiric antibiotics. Currently euvolemic, DC IV fluids as patient is end-stage renal disease. Continue empiric IV antibiotics. Transition to p.o. once appropriate. Follow-up cultures. 04/23/2019-patient came in with elevated WBC count, acute encephalopathy, elev ated lactic acid levels, fever. Blood pressure today is 98/42 T-max is 97.8. WBC count is 10,200 normalized. Sepsis is resolving. Patient alert and awake communicating well looks like his mental status is back to baseline. 04/24/2019-patient is afebrile T-max is 97.7 presently on IV Rocephin for E. coli in the urine. Plan is to continue the antibiotic therapy and probably discharge home tomorrow. 04/25/2019-patient admitted with severe sepsis with acute organ dysfunction hypotension resolved. Urine cultures came back positive for E. coli on IV Rocephin. Sputum cultures came back gram-positive cocci in clusters. Patient may have to stay over the weekend for continued addition of the IV antibiotic therapy. 04/26/2019-patient admitted with severe sepsis and acute organ failure which was resolved. Culture positive for gram-positive cocci in clusters urine culture is positive for E. coli. Presently on IV Rocephin and is afebrile. (2) End-stage renal disease on hemodialysis Is this a current diagnosis for this admission?: Yes Plan: On hemodialysis Sunday. Continue renal diet, monitor volume status, monitor electrolytes and replace as needed. Consult nephrology for continued hemodialysis while inpatient. Outpatient nephrology follow-up. 04/23/2019-patient has history of end-stage renal disease on hemodialysis is getting the dialysis today. Nephrology on board. 04/24/2019-patient is going to get another session of dialysis tomorrow prior to discharge. 03/26/2019-patient is in the dialysis unit today comfortable in the chair communicating okay. Not in distress. Vital signs are stable. (3) Acute encephalopathy Is this a current diagnosis for this admission?: Yes Plan: Acute metabolic encephalopathy most likely due to underlying sepsis. Resolved. Plan as per #1. 04/23/2019-altered mental status/acute encephalopathy most likely secondary to sepsis resolving. His mental status is back to baseline. 04/25/2019-patient admitted with acute encephalopathy/altered mental status most likely secondary to sepsis which was resolving. 04/26/2019-patient admitted with acute encephalopathy most likely secondary to sepsis and multiorgan failure patient's mental status back to baseline. (4) UTI (urinary tract infection) Qualifiers: Urinary tract infection type: acute pyelonephritis Qualified Code(s): N10 - Acute pyelonephritis Is this a current diagnosis for this admission?: Yes Plan: Urine cultures came back positive for E. coli pansensitive. pt Is presently on meropenem. Plan is to discontinue meropenem and start him on ceftriaxone. 04/24/2019-urine cultures came back positive for E. coli and the patient is on IV Rocephin. Afebrile. 04/25/2019-patient is receiving IV Rocephin for E. coli. (5) Anemia, chronic disease Is this a current diagnosis for this admission?: Yes Plan: Hemoglobin at baseline. No sign of bleeding. Continue monitoring H&H. Outpatient nephrology follow-up. 04/25/2019-patient's hemoglobin is 11.1 stable. (6) Coronary artery disease Qualifiers: Coronary Disease-Associated Artery/Lesion type: [place] artery [place] vs. transplanted heart: [place] heart Associated angina: without angina Qualified Code(s): I25.10 - Atherosclerotic heart disease of [place] coronary artery without angina pectoris Is this a current diagnosis for this admission?: Yes Plan: Denies any anginal symptoms. Continue antiplatelets, nitrates, statins. (7) COPD (chronic obstructive pulmonary disease) Qualifiers: COPD type: unspecified COPD Qualified Code(s): J44.9 - Chronic obstructive pulmonary disease, unspecified Is this a current diagnosis for this admission?: Yes Plan: Mild wheezing on respiratory examination. Former smoker. Not on home O2. DuoNeb's, p.o. steroids, PRN BiPAP, supplemental oxygen, flutter valve, incentive spirometer. 04/24/2019-on examination chest bilateral it was decreased no wheezing no crepitations. Pulse ox is 97% on 2 L. To discontinue p.o. prednisone from today. 04/26/2019-patient pulse ox is 91% on 3 L. Stable. Plan is to continue the present management.
[2019-04-26] MEDS: CEFTRIAXONE 2 GM/D5W RTU 2 GM/50 ML RTUPB IV SCH (10:57)
[2019-04-26] MEDS ORDERED: LORAZEPAM INJ 2 MG/1 ML VIAL IV PRN (11:17)
[2019-04-26] MEDS ORDERED: LEVALBUTEROL HCL NEB 1.25 MG/3 ML AMPUL NEB PRN (11:18)
--- NOTE | 2019-04-26 13:09 | RADIOLOGY REPORT (SQ) ---
EXAM DESCRIPTION: CT HEAD WITHOUT COMPLETED DATE/TIME: 04/26/2019 12:57 pm REASON FOR STUDY: altered mental status COMPARISON: None. TECHNIQUE: Axial images acquired through the brain without intravenous contrast. Images reviewed wi th bone, brain and subdural windows. Additional sagittal and coronal reconstructions were generated. Images stored on PACS. All CT scanners at this facility use dose modulation, iterative reconstruction, and/or weight based d osing when appropriate to reduce radiation dose to as low as reasonably achievable (ALARA). [facility]: Dose Right [facility]: CareDose [facility]: Dose Right [facility]: Teradose 4D [facility]: Smart [employer] RADIATION DOSE: CT Rad equipment meets quality standard of care and radiation dose reduction techniq ues were employed. CTDIvol: 53.2 mGy. DLP: 937 mGy-cm.mGy. LIMITATIONS: None. FINDINGS: VENTRICLES: Prominent. CEREBRUM: No masses. No hemorrhage. No midline shift. Areas of low density in the white matter mos t likely due to chronic micro-vascular ischemic change. No evidence for acute infarction. CEREBELLUM: No masses. No hemorrhage. No alteration of density. No evidence for acute infarction. EXTRAAXIAL SPACES: Age-related involutional change. No fluid collections. No masses. ORBITS AND GLOBE: No intra- or extraconal masses. Normal contour of globe without masses. CALVARIUM: No fracture. PARANASAL SINUSES: Mucosal thickening left maxillary sinus. SOFT TISSUES: No mass or hematoma. OTHER: No other significant finding. IMPRESSION: CHRONIC CHANGES OF ATROPHY AND MICROVASCULAR ISCHEMIA. NO ACUTE PROCESS. EVIDENCE OF ACUTE STROKE: NO. TECHNICAL DOCUMENTATION: JOB ID: [id number] Quality ID # [id number]: Final reports with documentation of one or more dose reduction techniques (e.g., Au tomated exposure control, adjustment of the mA and/or kV according to patient size, use of iterative reconstruction technique) 2010 [employer]- All Rights Reserved Reading location - IP/workstation name: [email or web address]
[2019-04-26] MEDS: CALCIUM CARBONATE 500 MG TAB.CHEW PO SCH (13:19)
[2019-04-26] MEDS: ISOSORBIDE DINITRATE 20 MG TABLET PO SCH ×2 (13:19→21:58)
[2019-04-26] MEDS: SODIUM BICARBONATE 650 MG TABLET PO SCH ×2 (13:19→21:58)
[2019-04-26] MEDS: CETIRIZINE 10 MG TABLET PO SCH (13:19)
[2019-04-26] MEDS: MAGNESIUM OXIDE 400 MG TABLET PO SCH (13:19)
[2019-04-26] MEDS: SULFAMETHOXAZOLE/TRIMETHOPRIM 800-160 MG TABLET PO SCH (17:48)
[2019-04-26] MEDS: ASPIRIN 81 MG TABLET, ENT COATED PO SCH (21:58)
[2019-04-26] MEDS: ATORVASTATIN CALCIUM 20 MG TABLET PO SCH (21:58)
[2019-04-26] MEDS: FOLIC ACID/VITAMIN B COMP W-C CAPSULE PO SCH (21:58)
[2019-04-27] MEDS: PANTOPRAZOLE SODIUM 40 MG TABLET.DR PO SCH ×2 (05:02→17:28)
--- NOTE | 2019-04-27 07:50 | PDOC PROGRESS REPORT ---
Subjective Progress Note for:: 04/27/19 Subjective:: 78 year old male who presented to the emergency room with acute confusion. His son brought him to the emergency room and answers questions as his father is unable to participate in his historical record due to his acute encephalopathy. His son relates that the patient went to dialysis as usual earlier today and after completing dialysis left the dialysis center but was sitting outside for 2 to 3 hours when the dialysis staff went out to speak with him and found that he was disoriented and had a fever. He was subsequently transported to the emergency room by his son for evaluation. His son admits prior similar episodes usually resulting from a urinary tract infection or a pulmonary infection. His son relates that the dialysis staff noted that he had a cough this morning and took some cough drops and he also had an episode of diarrhea yesterday after e ating fried foods which is not uncommon for him. His son has not identified any additional associated or accompanying signs or symptoms, nor has he identified any additional aggravating or ameliorating factors for his father's confusion. In the emergency room the patient was found to be febrile with a fever of 103.1 F and had an elevated white blood count at 12,600 with modest hypotension (MAP of 63 and 68) and an elevated serum lactate. Patient was subsequently admitted to [facility] for treatment of his severe sepsis. 04/22/2019. Patient comfortably resting in bed, alert oriented x3, confusion has resolved, vitals are stable. Denies any fever, chills, nausea, vomiting, diarrhea, constipation or any urinary symptoms. 04/23/2019-patient is comfortable in the dialysis chair communicating okay. He has extremely difficulty in hearing. Able to give me his date of and location. No acute events in the last 24 hours. Afebrile. 04/24/2019-patient is comfortably in the chair eating his breakfast. Not in distress. Communicating okay. no Acute events in the last 24 hours. Afebrile. 04/25/2019-patient in the dialysis unit today comfortable in the dialysis chair. Expressing desire to go home. Sputum cultures came back positive for gram- positive cocci today. Urine culture is also positive for E. coli and presently on IV Rocephin. T-max is 98.5. No acute events in the last 24 hours. Afebrile. 04/26/2019-pt is comfortably in the bed expressing desire to go home. Sputum culture pending back positive for gram-positive cocci in clusters. Urine culture is positive for E. coli on IV Rocephin. Afebrile. He has a successful dialysis yesterday. 04/27/2019-patient is more alert more awake communicating well. No complaints. Yesterday he was confused agitated crying family concerned about mental status changes no acute events in the last 24 hours. He did time of my examination patient is comfortably in the bed communicating extremely well. Patient has extreme difficulty in hearing. Reason For Visit: SEPSIS,FEVER,HYPOTENSION,ACUTE ENCEPHALOPATHY Physical Exam Vital Signs: Temp Pulse Resp BP Pulse Ox 98.1 F 74 18 120/52 L 96 04/27/19 03:47 04/27/19 03:47 04/27/19 03:47 04/27/19 03:47 04/27/19 03:47 Intake & Output 04/26/19 04/27/19 04/28/19 06:59 06:59 06:59 Intake Total 50 492 Output Total 1250 175 Balance -1200 317 Weight 80.1 kg 79.6 kg General appearance: PRESENT: no acute distress, cooperative, thin Head exam: PRESENT: atraumatic Eye exam: PRESENT: PERRLA Mouth exam: PRESENT: dry mucosa Teeth exam: PRESENT: poor dentation Neck exam: ABSENT: carotid bruit, JVD, lymphadenopathy, thyromegaly Respiratory exam: PRESENT: decreased breath sounds, wheezes Cardiovascular exam: PRESENT: RRR. ABSENT: diastolic murmur, rubs, systolic murmur GI/Abdominal exam: PRESENT: normal bowel sounds, soft. ABSENT: distended, guarding, mass, organolmegaly, rebound, tenderness Rectal exam: PRESENT: deferred Extremities exam: PRESENT: other - AV fistula on the left arm functioning well. Neurological exam: PRESENT: alert Psychiatric exam: PRESENT: appropriate affect, normal mood. ABSENT: homicidal ideation, suicidal ideation Results Laboratory Results: 04/25/19 06:14 04/25/19 06:14 04/21/19 19:53 Blood Blood Culture - Final NO GROWTH IN 5 DAYS 04/21/19 17:52 Blood Blood Culture - Final NO GROWTH IN 5 DAYS 04/22/19 13:30 Sputum Gram Stain - Final 04/22/19 13:30 Sputum Sputum Culture - Final Mrsa (Meth Resis Staph Aureus) Yeast, Not Jennifer Albicans Reduced Normal Lety 04/21/19 17:52 Troponin I 0.055 Impressions: Chest X-Ray 04/21/19 22:01 IMPRESSION: No acute disease. copyright 2010 [employer]- All Rights Reserved Head CT 04/26/19 00:00 IMPRESSION: CHRONIC CHANGES OF ATROPHY AND MICROVASCULAR ISCHEMIA. NO ACUTE PROCESS. EVIDENCE OF ACUTE STROKE: NO. Assessment and Plan - Plan Summary Summary: Patient is admitted and will be treated on the sepsis protocol in [facility]. He will receive vasopressor if necessary after adequate fluid volume replacement. Will be treated with acetaminophen and his mental status will be monitored closely with neuro checks. He will receive usual supportive and symptomatic cares as required. Operatory evaluations will be as outlined per sepsis protocol. Anti biotic therapy will be per the sepsis protocol. (1) Severe sepsis with acute organ dysfunction Is this a current diagnosis for this admission?: Yes Plan: Evidenced by leukocytosis, encephalopathy, elevated lactic acid, hypertension, fever. Likely source urine. Leukocytosis improving, encephalopathy resolved, lactic acid WNL, normotensive, afebrile. Was started on volume resuscitation and IV empiric antibiotics. Currently euvolemic, DC IV fluids as patient is end-stage renal disease. Continue empiric IV antibiotics. Transition to p.o. once appropriate. Follow-up cultures. 04/23/2019-patient came in with elevated WBC count, acute encephalopathy, elevated lactic acid levels, fever. Blood pressure today is 98/42 T-max is 97.8. WBC count is 10,200 normalized. Sepsis is resolving. Patient alert and awake communicating well looks like his mental status is back to baseline. 04/24/2019-patient is afebrile T-max is 97.7 presently on IV Rocephin for E. coli in the urine. Plan is to continue the antibiotic therapy and probably discharge home tomorrow. 04/25/2019-patient admitted with severe sepsis with acute organ dysfunction hypotension resolved. Urine cultures came back positive for E. coli on IV Rocephin. Sputum cultures came back gram-positive cocci in clusters. Patient may have to stay over the weekend for continued addition of the IV antibiotic therapy. 04/26/2019-patient admitted with severe sepsis and acute organ failure which was resolved. Culture positive for gram-positive cocci in clusters urine culture is positive for E. coli. Presently on IV Rocephin and is afebrile. 04/27/2019-sputum cultures came back positive for MRSA presently on p.o. Bactrim. Also found to have urine culture positive for E. coli and IV Rocephin. Afebrile. WBC count within normal limits. Plan is to continue the present management for at least another 24 to 48 hours. (2) End-stage renal disease on hemodialysis Is this a current diagnosis for this admission?: Yes Plan: On hemodialysis Sunday. Continue renal diet, monitor volume status, monitor electrolytes and replace as needed. Consult nephrology for continued hemodialysis while inpatient. Outpatient nephrology follow-up. 04/23/2019-patient has history of end-stage renal disease on hemodialysis is getting the dialysis today. Nephrology on board. 04/24/2019-patient is going to get another session of dialysis tomorrow prior to discharge. 04/25/2019-patient is in the dialysis unit today comfortable in the chair communicating okay. Not in distress. Vital signs are stable. 04/27/2019-patient's last dialysis is on Sunday,, next session is tomorrow. (3) Acute encephalopathy Is this a current diagnosis for this admission?: Yes Plan: Acute metabolic encephalopathy most likely due to underlying sepsis. Resolved. Plan as per #1. 04/23/2019-altered mental status/acute encephalopathy most likely secondary to sepsis resolving. His mental status is back to baseline. 04/25/2019-patient admitted with acute encephalopathy/altered mental status most likely secondary to sepsis which was resolving. 04/26/2019-patient admitted with acute encephalopathy most likely secondary to sepsis and multiorgan failure patient's mental status back to baseline. 04/27/2019-acute and colopathy/altered mental status due to advanced age resolved. Sepsis is also a contributing factor which was resolved. (4) UTI (urinary tract infection) Qualifiers: Urinary tract infection type: acute pyelonephritis Qualified Code(s): N10 - Acute pyelonephritis Is this a current diagnosis for this admission?: Yes Plan: Urine cultures came back positive for E. coli pansensitive. pt Is presently on meropenem. Plan is to discontinue meropenem and start him on ceftriaxone. 04/24/2019-urine cultures came back positive for E. coli and the patient is on IV Rocephin. Afebrile. 04/25/2019-patient is receiving IV Rocephin for E. coli. (5) Anemia, chronic disease Is this a current diagnosis for this admission?: Yes Plan: Hemoglobin at baseline. No sign of bleeding. Continue monitoring H&H. Outpatient nephrology follow-up. 04/25/2019-patient's hemoglobin is 11.1 stable. (6) Coronary artery disease Qualifiers: Coronary Disease-Associated Artery/Lesion type: [place] artery [place] vs. transplanted heart: [place] heart Associated angina: without angina Qualified Code(s): I25.10 - Atherosclerotic heart disease of [place] coronary artery without angina pectoris Is this a current diagnosis for this admission?: Yes Plan: Denies any anginal symptoms. Continue antiplatelets, nitrates, statins. (7) COPD (chronic obstructive pulmonary disease) Qualifiers: COPD type: unspecified COPD Qualified Code(s): J44.9 - Chronic obstructive pulmonary disease, unspecified Is this a current diagnosis for this admission?: Yes Plan: Mild wheezing on respiratory examination. Former smoker. Not on home O2. DuoNeb's, p.o. steroids, PRN BiPAP, supplemental oxygen, flutter valve, incentive spirometer. 04/24/2019-on examination chest bilateral it was decreased no wheezing no crepitations. Pulse ox is 97% on 2 L. To discontinue p.o. prednisone from today. 04/26/2019-patient pulse ox is 91% on 3 L. Stable. Plan is to continue the present management. 04/27/2019-pulse ox is 92% on 2 L this morning patient is receiving Xopenex nebulizations. Wheezing is much improved compared to yesterday. Sputum culture positive for MRSA.
[2019-04-27 08:29] LABS: ABSOLUTE BASOPHILS # (AUTO) 0.1 10^3/uL (0.0-0.2); ABSOLUTE EOSINOPHILS # (AUTO) 0.4 10^3/uL (0.0-0.6); ABSOLUTE LYMPHOCYTES (AUTO) 1.9 10^3/uL (0.5-4.7); ABSOLUTE MONOCYTES (AUTO) 0.8 10^3/uL (0.1-1.4); ABSOLUTE NEUT (AUTO) 6.9 10^3/uL (1.7-8.2); BASOPHILS % (AUTO) 0.9 % (0-2); EOSINOPHILS % (AUTO) 3.5 % (0-6); HEMATOCRIT 34.3 % (37.9-51.0); HEMOGLOBIN 11.7 g/dL (13.5-17.0); LYMPHOCYTES % (AUTO) 19.2 % (13-45); MEAN CORPUSCULAR HGB CONC 34.2 g/dL (32.0-36.0); MEAN CORPUSCULAR VOLUME 94 fl (80-97); MONOCYTES % (AUTO) 7.7 % (3-13); PLATELET COUNT 160 10^3/uL (150-450); RED BLOOD COUNT 3.67 10^6/uL (4.35-5.55); RED CELL DISTRIBUTION WIDTH 13.3 % (11.5-14.0); SEGMENTED NEUTROPHILS % (AUTO) 68.7 % (42-78); TOTAL CELLS COUNTED % (AUTO) 100 %; WHITE BLOOD COUNT 10.1 10^3/uL (4.0-10.5)
[2019-04-27 08:52] LABS: ALBUMIN 3.8 g/dL (3.5-5.0); ALKALINE PHOSPHATASE 85 U/L (38-126); ANION GAP 16 (5-19); ASPARTATE AMINO TRANSFERASE 37 U/L (17-59); BILIRUBIN,DIRECT 0.3 mg/dL (0.0-0.4); BILIRUBIN,TOTAL 0.4 mg/dL (0.2-1.3); BLOOD UREA NITROGEN 65 mg/dL (7-20); CALCIUM 7.7 mg/dL (8.4-10.2); CARBON DIOXIDE 26 mmol/L (22-30); CHLORIDE 99 mmol/L (98-107); GLUCOSE 96 mg/dL (75-110); POTASSIUM 4.3 mmol/L (3.6-5.0); TOTAL PROTEIN 6.5 g/dL (6.3-8.2)
[2019-04-27] MEDS: IPRATROPIUM/ALBUTEROL 0.5-2.5 MG/3 ML AMPUL NEB SCH (09:05)
[2019-04-27] MEDS: SULFAMETHOXAZOLE/TRIMETHOPRIM 800-160 MG TABLET PO SCH ×2 (09:35→17:28)
[2019-04-27] MEDS: CEFTRIAXONE 2 GM/D5W RTU 2 GM/50 ML RTUPB IV SCH (09:35)
[2019-04-27] MEDS: CALCIUM CARBONATE 500 MG TAB.CHEW PO SCH (09:35)
[2019-04-27] MEDS: CETIRIZINE 10 MG TABLET PO SCH (09:35)
[2019-04-27] MEDS: SODIUM BICARBONATE 650 MG TABLET PO SCH ×2 (09:35→21:17)
[2019-04-27] MEDS: MAGNESIUM OXIDE 400 MG TABLET PO SCH (09:35)
[2019-04-27] MEDS: ISOSORBIDE DINITRATE 20 MG TABLET PO SCH ×2 (09:35→21:17)
[2019-04-27] MEDS: FOLIC ACID/VITAMIN B COMP W-C CAPSULE PO SCH (21:17)
[2019-04-27] MEDS: ATORVASTATIN CALCIUM 20 MG TABLET PO SCH (21:17)
[2019-04-27] MEDS: ASPIRIN 81 MG TABLET, ENT COATED PO SCH (21:17)
[2019-04-28] MEDS ORDERED: NORMAL SALINE 1000 ML 1,000 ML IV PRN (05:00)
[2019-04-28 05:07] LABS: ABSOLUTE BASOPHILS # (AUTO) 0.1 10^3/uL (0.0-0.2); ABSOLUTE EOSINOPHILS # (AUTO) 0.4 10^3/uL (0.0-0.6); ABSOLUTE LYMPHOCYTES (AUTO) 1.8 10^3/uL (0.5-4.7); ABSOLUTE MONOCYTES (AUTO) 0.9 10^3/uL (0.1-1.4); ABSOLUTE NEUT (AUTO) 6.3 10^3/uL (1.7-8.2); BASOPHILS % (AUTO) 0.6 % (0-2); HEMATOCRIT 29.8 % (37.9-51.0); HEMOGLOBIN 10.1 g/dL (13.5-17.0); LYMPHOCYTES % (AUTO) 18.8 % (13-45); MEAN CORPUSCULAR HEMOGLOBIN 31.8 pg (27.0-33.4); MEAN CORPUSCULAR HGB CONC 33.9 g/dL (32.0-36.0); MEAN CORPUSCULAR VOLUME 94 fl (80-97); MONOCYTES % (AUTO) 9.3 % (3-13); PLATELET COUNT 156 10^3/uL (150-450); RED BLOOD COUNT 3.18 10^6/uL (4.35-5.55); RED CELL DISTRIBUTION WIDTH 13.4 % (11.5-14.0); SEGMENTED NEUTROPHILS % (AUTO) 67.3 % (42-78); TOTAL CELLS COUNTED % (AUTO) 100 %; WHITE BLOOD COUNT 9.4 10^3/uL (4.0-10.5)
[2019-04-28] MEDS: PANTOPRAZOLE SODIUM 40 MG TABLET.DR PO SCH ×2 (05:26→17:09)
[2019-04-28 05:27] LABS: ANION GAP 13 (5-19); BLOOD UREA NITROGEN 78 mg/dL (7-20); CALCIUM 7.5 mg/dL (8.4-10.2); CARBON DIOXIDE 25 mmol/L (22-30); CHLORIDE 104 mmol/L (98-107); GLUCOSE 109 mg/dL (75-110); POTASSIUM 4.2 mmol/L (3.6-5.0)
--- NOTE | 2019-04-28 08:04 | PDOC PROGRESS REPORT ---
Subjective Progress Note for:: 04/28/19 Subjective:: 78 year old male who presented to the emergency room with acute confusion. His son brought him to the emergency room and answers questions as his father is unable to participate in his historical record due to his acute encephalopathy. His son relates that the patient went to dialysis as usual earlier today and after completing dialysis left the dialysis center but was sitting outside for 2 to 3 hours when the dialysis staff went out to speak with him and found that he was disoriented and had a fever. He was subsequently transported to the emergency room by his son for evaluation. His son admits prior similar episodes usually resulting from a urinary tract infection or a pulmonary infection. His son relates that the dialysis staff noted that he had a cough this morning and took some cough drops and he also had an episode of diarrhea yesterday after e ating fried foods which is not uncommon for him. His son has not identified any additional associated or accompanying signs or symptoms, nor has he identified any additional aggravating or ameliorating factors for his father's confusion. In the emergency room the patient was found to be febrile with a fever of 103.1 F and had an elevated white blood count at 12,600 with modest hypotension (MAP of 63 and 68) and an elevated serum lactate. Patient was subsequently admitted to [facility] for treatment of his severe sepsis. 04/22/2019. Patient comfortably resting in bed, alert oriented x3, confusion has resolved, vitals are stable. Denies any fever, chills, nausea, vomiting, diarrhea, constipation or any urinary symptoms. 04/23/2019-patient is comfortable in the dialysis chair communicating okay. He has extremely difficulty in hearing. Able to give me his date of and location. No acute events in the last 24 hours. Afebrile. 04/24/2019-patient is comfortably in the chair eating his breakfast. Not in distress. Communicating okay. no Acute events in the last 24 hours. Afebrile. 04/25/2019-patient in the dialysis unit today comfortable in the dialysis chair. Expressing desire to go home. Sputum cultures came back positive for gram- positive cocci today. Urine culture is also positive for E. coli and presently on IV Rocephin. T-max is 98.5. No acute events in the last 24 hours. Afebrile. 04/26/2019-pt is comfortably in the bed expressing desire to go home. Sputum culture pending back positive for gram-positive cocci in clusters. Urine culture is positive for E. coli on IV Rocephin. Afebrile. He has a successful dialysis yesterday. 04/27/2019-patient is more alert more awake communicating well. No complaints. Yesterday he was confused agitated crying family concerned about mental status changes no acute events in the last 24 hours. He did time of my examination patient is comfortably in the bed communicating extremely well. Patient has extreme difficulty in hearing. 04/28/2019-patient is comfortably sleeping in the bed. No acute events in the last 24 hours. Afebrile. Going for the dialysis today. Family is requesting for a rehab placement. Reason For Visit: SEPSIS,FEVER,HYPOTENSION,ACUTE ENCEPHALOPATHY Physical Exam Vital Signs: Temp Pulse Resp BP Pulse Ox 98.3 F 75 19 123/58 L 97 04/28/19 04:00 04/28/19 04:00 04/28/19 04:00 04/28/19 04:00 04/28/19 04:00 Intake & Output 04/27/19 04/28/19 04/29/19 06:59 06:59 06:59 Intake Total 492 880 Output Total 175 1100 Balance 317 -220 Weight 79.6 kg 79 kg General appearance: PRESENT: no acute distress, cooperative, thin Head exam: PRESENT: atraumatic Eye exam: PRESENT: conjunctiva pale, PERRLA Mouth exam: PRESENT: moist, tongue midline Teeth exam: PRESENT: dental tenderness Neck exam: ABSENT: carotid bruit, JVD, lymphadenopathy, thyromegaly Respiratory exam: PRESENT: decreased breath sounds Cardiovascular exam: PRESENT: RRR. ABSENT: diastolic murmur, rubs, systolic murmur GI/Abdominal exam: PRESENT: normal bowel sounds, soft. ABSENT: distended, guarding, mass, organolmegaly, rebound, tenderness Rectal exam: PRESENT: deferred Extremities exam: PRESENT: full ROM, other - Patient has AV fistula left upper arm functioning well.. ABSENT: calf tenderness, clubbing, pedal edema Neurological exam: PRESENT: alert, awake, oriented to person, oriented to place, oriented to time, oriented to situation, CN II-XII grossly intact. ABSENT: motor sensory deficit Skin exam: PRESENT: dry, intact, warm. ABSENT: cyanosis, rash Results Laboratory Results: 04/28/19 04:53 04/28/19 04:53 04/27/19 04/27/19 04/28/19 08:13 08:13 04:53 WBC 10.1 9.4 RBC 3.67 L 3.18 L Hgb 11.7 L 10.1 L Hct 34.3 L 29.8 L MCV 94 94 MCH 32.0 31.8 MCHC 34.2 33.9 RDW 13.3 13.4 Plt Count 160 156 Seg Neutrophils % 68.7 67.3 Sodium 140.7 Potassium 4.3 Chloride 99 Carbon Dioxide 26 Anion Gap 16 BUN 65 H Creatinine 4.54 H Est GFR ( Amer) 15 L Glucose 96 Calcium 7.7 L Magnesium 2.2 Total Bilirubin 0.4 AST 37 Alkaline Phosphatase 85 Total Protein 6.5 Albumin 3.8 04/28/19 04:53 WBC RBC Hgb Hct MCV MCH MCHC RDW Plt Count Seg Neutrophils % Sodium 141.7 Potassium 4.2 Chloride 104 Carbon Dioxide 25 Anion Gap 13 BUN 78 H Creatinine 5.24 H Est GFR ( Amer) 13 L Glucose 109 Calcium 7.5 L Magnesium Total Bilirubin AST Alkaline Phosphatase Total Protein Albumin 04/21/19 17:52 Troponin I 0.055 Impressions: Chest X-Ray 04/21/19 22:01 IMPRESSION: No acute disease. copyright 2010 [employer]- All Rights Reserved Head CT 04/26/19 00:00 IMPRESSION: CHRONIC CHANGES OF ATROPHY AND MICROVASCULAR ISCHEMIA. NO ACUTE PROCESS. EVIDENCE OF ACUTE STROKE: NO. Assessment and Plan - Plan Summary Summary: Patient is admitted and will be treated on the sepsis protocol in [facility]. He will receive vasopressor if necessary after adequate fluid volume replacement. Will be treated with acetaminophen and his mental status will be monitored closely with neuro checks. He will receive usual supportive and symptomatic cares as required. Operatory evaluations will be as outlined per sepsis protocol. Antibiotic therapy will be per the sepsis protocol. (1) Severe sepsis with acute organ dysfunction Is this a current diagnosis for this admission?: Yes Plan: Evidenced by leukocytosis, encephalopathy, elevated lactic acid, hypertension, fever. Likely source urine. Leukocytosis improving, encephalopathy resolved, lactic acid WNL, normotensive, afebrile. Was started on volume resuscitation and IV empiric antibiotics. Currently euvolemic, DC IV fluids as patient is end-stage renal disease. Continue empiric IV antibiotics. Transition to p.o. once appropriate. Follow-up cultures. 04/23/2019-patient came in with elevated WBC count, acute encephalopathy, elevated lactic acid levels, fever. Blood pressure today is 98/42 T-max is 97.8. WBC count is 10,200 normalized. Sepsis is resolving. Patient alert and awake communicating well looks like his mental status is back to baseline. 04/24/2019-patient is afebrile T-max is 97.7 presently on IV Rocephin for E. coli in the urine. Plan is to continue the antibiotic therapy and probably discharge home tomorrow. 04/25/2019-patient admitted with severe sepsis with acute organ dysfunction hypotension resolved. Urine cultures came back positive for E. coli on IV Rocephin. Sputum cultures came back gram-positive cocci in clusters. Patient may have to stay over the weekend for continued addition of the IV antibiotic therapy. 04/26/2019-patient admitted with severe sepsis and acute organ failure which was resolved. Culture positive for gram-positive cocci in clusters urine culture is positive for E. coli. Presently on IV Rocephin and is afebrile. 04/27/2019-sputum cultures came back positive for MRSA presently on p.o. Bactrim. Also found to have urine culture positive for E. coli and IV Rocephin. Afebrile. WBC count within normal limits. Plan is to continue the present management for at least another 24 to 48 hours. 04/28/2019-sputum cultures came back positive for MRSA presently on Bactrim. Urine culture is also positive for E. coli on IV Rocephin. Patient is going for dialysis this morning family is requesting for short-term placement. Physical therapy consult was requested. (2) End-stage renal disease on hemodialysis Is this a current diagnosis for this admission?: Yes Plan: On hemodialysis Sunday. Continue renal diet, monitor volume status, monitor electrolytes and replace as needed. Consult nephrology for continued hemodialysis while inpatient. Outpatient nephrology follow-up. 04/23/2019-patient has history of end-stage renal disease on hemodialysis is getting the dialysis today. Nephrology on board. 04/24/2019-patient is going to get another session of dialysis tomorrow prior to discharge. 04/25/2019-patient is in the dialysis unit today comfortable in the chair communicating okay. Not in distress. Vital signs are stable. 04/27/2019-patient's last dialysis is on Sunday,, next session is tomorrow. 04/28/2019-last dialysis session is on Sunday completed dialysis without any complications is going for dialysis this morning. (3) Acute encephalopathy Is this a current diagnosis for this admission?: Yes Plan: Acute metabolic encephalopathy most likely due to underlying sepsis. Resolved. Plan as per #1. 04/23/2019-altered mental status/acute encephalopathy most likely secondary to sepsis resolving. His mental status is back to baseline. 04/25/2019-patient admitted with acute encephalopathy/altered mental status most likely secondary to sepsis which was resolving. 04/26/2019-patient admitted with acute encephalopathy most likely secondary to sepsis and multiorgan failure patient's mental status back to baseline. 04/27/2019-acute encephalopathy/altered mental status due to advanced age resolved. Sepsis is also a contributing factor which was resolved. 2018-patient admitted with acute encephalopathy/altered mental status most likely secondary to sepsis which was resolved. (4) UTI (urinary tract infection) Qualifiers: Urinary tract infection type: acute pyelonephritis Qualified Code(s): N10 - Acute pyelonephritis Is this a current diagnosis for this admission?: Yes Plan: Urine cultures came back positive for E. coli pansensitive. pt Is presently on meropenem. Plan is to discontinue meropenem and start him on ceftriaxone. 04/24/2019-urine cultures came back positive for E. coli and the patient is on IV Rocephin. Afebrile. 04/25/2019-patient is receiving IV Rocephin for E. coli. 04/28/2019-urine culture came back positive for E. coli and IV Rocephin daily. (5) Anemia, chronic disease Is this a current diagnosis for this admission?: Yes Plan: Hemoglobin at baseline. No sign of bleeding. Continue monitoring H&H. Outpatient nephrology follow-up. 04/25/2019-patient's hemoglobin is 11.1 stable. 04/28/2019-latest hemoglobin is 10.1 stable. Anemia of chronic disease most likely secondary to end-stage renal disease. (6) Coronary artery disease Qualifiers: Coronary Disease-Associated Artery/Lesion type: [place] artery [place] vs. transplanted heart: [place] heart Associated angina: without angina Qualified Code(s): I25.10 - Atherosclerotic heart disease of [place] coronary artery without angina pectoris Is this a current diagnosis for this admission?: Yes Plan: Denies any anginal symptoms. Continue antiplatelets, nitrates, statins. (7) COPD (chronic obstructive pulmonary disease) Qualifiers: COPD type: unspecified COPD Qualified Code(s): J44.9 - Chronic obstructive pulmonary disease, unspecified Is this a current diagnosis for this admission?: Yes Plan: Mild wheezing on respiratory examination. Former smoker. Not on home O2. DuoNeb's, p.o. steroids, PRN BiPAP, supplemental oxygen, flutter valve, incentive spirometer. 04/24/2019-on examination chest bilateral it was decreased no wheezing no crepitations. Pulse ox is 97% on 2 L. To discontinue p.o. prednisone from today. 04/26/2019-patient pulse ox is 91% on 3 L. Stable. Plan is to continue the present management. 04/27/2019-pulse ox is 92% on 2 L this morning patient is receiving Xopenex nebulizations. Wheezing is much improved compared to yesterday. Sputum culture positive for MRSA. 04/28/2019-pulse ox today is 97% on 2 L improving from yesterday. Presently receiving IV Rocephin and p.o. Bactrim and Xopenex nebulizations as needed. On examination chest bilateral entry was decreased bilateral wheezing is significantly improved.
[2019-04-28] MEDS ORDERED: ACETAMINOPHEN 325 MG TABLET PO PRN (10:17)
--- NOTE | 2019-04-28 10:19 | PDOC PROGRESS REPORT ---
Subjective Progress Note for:: 04/28/19 Subjective:: I am seeing the patient on dialysis this morning. He said he feels fine. He tells me that he still has slight cough but unable to cough out any phlegm. He tells me he is eating good. He does not have any complaints. Currently tolerating dialysis without any issues. Events over the weekend noted. The patient was noted to be crying with altered mentation again on Sunday so family is concerned and requested the patient go on a short-term rehab after this hospitalization. Reason For Visit: SEPSIS,FEVER,HYPOTENSION,ACUTE ENCEPHALOPATHY Physical Exam Vital Signs: Temp Pulse Resp BP Pulse Ox 98.3 F 75 19 123/58 L 97 04/28/19 04:00 04/28/19 04:00 04/28/19 04:00 04/28/19 04:00 04/28/19 04:00 Intake & Output 04/27/19 04/28/19 04/29/19 06:59 06:59 06:59 Intake Total 492 880 Output Total 175 1100 Balance 317 -220 Weight 79.6 kg 79 kg Vitals during dialysis: Blood pressure 141/81, heart rate of 92, blood flow rate of 400ml/min and dialysate flow rate of 800ml/min. Exam: General appearance: PRESENT: no acute distress, cooperative, well-developed, well-nourished Head exam: PRESENT: atraumatic, normocephalic Eye exam: PRESENT: conjunctiva slightly pale, PERRLA. ABSENT: scleral icterus Neck exam: ABSENT: JVD Respiratory exam: PRESENT: Coarse breath sounds. Positive decreased rhonchi ABSENT: crackles, rales, unlabored, wheezes Cardiovascular exam: PRESENT: Regular rate rhythm -+S1, +S2. ABSENT: diastolic murmur, systolic murmur GI/Abdominal exam: PRESENT: normal bowel sounds, soft. Urostomy bag in place ABSENT: guarding, mass, tenderness Extremities exam: ABSENT: No edema Neurological exam: PRESENT: alert, awake, oriented to person, place and time. Skin exam: PRESENT: dry, warm, Results Laboratory Results: 04/28/19 04:53 04/28/19 04:53 04/28/19 04/28/19 04:53 04:53 WBC 9.4 RBC 3.18 L Hgb 10.1 L Hct 29.8 L MCV 94 MCH 31.8 MCHC 33.9 RDW 13.4 Plt Count 156 Seg Neutrophils % 67.3 Sodium 141.7 Potassium 4.2 Chloride 104 Carbon Dioxide 25 Anion Gap 13 BUN 78 H Creatinine 5.24 H Est GFR ( Amer) 13 L Glucose 109 Calcium 7.5 L 04/21/19 17:52 Troponin I 0.055 Impressions: Chest X-Ray 04/21/19 22:01 IMPRESSION: No acute disease. copyright 2011 [employer]- All Rights Reserved Head CT 04/26/19 00:00 IMPRESSION: CHRONIC CHANGES OF ATROPHY AND MICROVASCULAR ISCHEMIA. NO ACUTE PROCESS. EVIDENCE OF ACUTE STROKE: NO. Assessment & Plan - Diagnosis (1) End-stage renal disease on hemodialysis Is this a current diagnosis for this admission?: Yes Plan: We will do dialysis today for 3 hours, using the patient's AV fistula, with 2 potassium bath/3.0 calcium, blood flow rate of 400 mL per minute, dialysate flow rate of 800 mL per minute, ultrafiltration 1 L as tolerated, no heparin and no Procrit. Patient will be monitored throughout dialysis treatment. We will adjust hemodialysis treatment as indicated. (2) Acute UTI (urinary tract infection) Is this a current diagnosis for this admission?: Yes Plan: Due to E. coli. Patient on IV ceftriaxone. Per hospitalist service. (3) Acute encephalopathy Is this a current diagnosis for this admission?: Yes Plan: Secondary to acute infection. Currently resolved and at his baseline mental state. Patient did have some fluctuating mental status over the weekend which probably could be attributed to ing or possibly developing dementia aside from the infection. (4) Anemia in chronic kidney disease (CKD) Qualifiers: Chronic kidney disease stage: on chronic dialysis Qualified Code(s): N18.6 - End stage renal disease; D63.1 - Anemia in chronic kidney disease; D63.1 - Anemia in chronic kidney disease; Z99.2 - Dependence on renal dialysis; Z99.2 - Dependence on renal dialysis; Z99.2 - Dependence on renal dialysis; Z99.2 - Dependence on renal dialysis Is this a current diagnosis for this admission?: Yes Plan: Patient does not need Procrit today. (5) Acute bronchitis Qualifiers: Bronchitis organism: unspecified organism Qualified Code(s): J20.9 - Acute bronchitis, unspecified Is this a current diagnosis for this admission?: Yes Plan: Sputum culture positive for MRSA. Patient was started with Bactrim. Dose needs to be decreased to 50% given after dialysis. (6) COPD (chronic obstructive pulmonary disease) Qualifiers: COPD type: unspecified COPD Qualified Code(s): J44.9 - Chronic obstructive pulmonary disease, unspecified Is this a current diagnosis for this admission?: Yes - Notes Notes: Discussed with Rebecca Cardoza. - Time Time with patient: 15-25 minutes
[2019-04-28] MEDS: ISOSORBIDE DINITRATE 20 MG TABLET PO SCH ×2 (11:28→21:44)
[2019-04-28] MEDS: MAGNESIUM OXIDE 400 MG TABLET PO SCH (11:29)
[2019-04-28] MEDS: CALCIUM CARBONATE 500 MG TAB.CHEW PO SCH (11:29)
[2019-04-28] MEDS: CETIRIZINE 5 MG TABLET PO SCH (11:33)
[2019-04-28] MEDS: CEFTRIAXONE 2 GM/D5W RTU 2 GM/50 ML RTUPB IV SCH (11:38)
[2019-04-28] MEDS: FOLIC ACID/VITAMIN B COMP W-C CAPSULE PO SCH (21:44)
[2019-04-28] MEDS: ASPIRIN 81 MG TABLET, ENT COATED PO SCH (21:44)
[2019-04-28] MEDS: ATORVASTATIN CALCIUM 20 MG TABLET PO SCH (21:44)
[2019-04-28] MEDS ORDERED: SULFAMETHOXAZOLE/TRIMETHOPRIM 800-160 MG TABLET PO SCH (22:00)
[2019-04-29] MEDS: PANTOPRAZOLE SODIUM 40 MG TABLET.DR PO SCH (05:32)
[2019-04-29] MEDS: ISOSORBIDE DINITRATE 20 MG TABLET PO SCH (09:16)
[2019-04-29] MEDS: CETIRIZINE 5 MG TABLET PO SCH (09:16)
[2019-04-29] MEDS: CALCIUM CARBONATE 500 MG TAB.CHEW PO SCH (09:16)
[2019-04-29] MEDS: MAGNESIUM OXIDE 400 MG TABLET PO SCH (09:16)
[2019-04-29] MEDS: CEFTRIAXONE 2 GM/D5W RTU 2 GM/50 ML RTUPB IV SCH (09:17)
--- NOTE | 2019-04-29 10:48 | PDOC PROGRESS REPORT ---
Subjective Progress Note for:: 04/29/19 Subjective:: Patient is doing fine and stable. He does not have any new complaints. Patient states that he does not want to go to rehab but it appears that his son requested for this. Reason For Visit: SEPSIS,FEVER,HYPOTENSION,ACUTE ENCEPHALOPATHY Physical Exam Vital Signs: Temp Pulse Resp BP Pulse Ox 97.6 F 73 16 120/53 L 92 04/29/19 08:05 04/29/19 08:05 04/29/19 08:05 04/29/19 08:05 04/29/19 08:05 Intake & Output 04/28/19 04/29/19 04/30/19 06:59 06:59 06:59 Intake Total 880 440 Output Total 1100 1260 Balance -220 -820 Weight 79 kg 79.4 kg Exam: General appearance: PRESENT: no acute distress, cooperative, well-developed, well-nourished Head exam: PRESENT: atraumatic, normocephalic Eye exam: PRESENT: conjunctiva slightly pink, PERRLA. ABSENT: scleral icterus Neck exam: ABSENT: JVD Respiratory exam: PRESENT: Diminished breath sounds. ABSENT: crackles, rales, rhonchi, unlabored, wheezes Cardiovascular exam: PRESENT: Regular rate rhythm -+S1, +S2. ABSENT: diastolic murmur, systolic murmur GI/Abdominal exam: PRESENT: normal bowel sounds, soft. Right lower quadrant urostomy bag in place ABSENT: guarding, mass, tenderness Extremities exam: ABSENT: No edema Neurological exam: PRESENT: alert, awake, oriented to person, place and time. Skin exam: PRESENT: dry, warm, Results Laboratory Results: 04/28/19 04:53 04/28/19 04:53 04/21/19 17:52 Troponin I 0.055 Impressions: Chest X-Ray 04/21/19 22:01 IMPRESSION: No acute disease. copyright 2011 [employer]- All Rights Reserved Head CT 04/26/19 00:00 IMPRESSION: CHRONIC CHANGES OF ATROPHY AND MICROVASCULAR ISCHEMIA. NO ACUTE PROCESS. EVIDENCE OF ACUTE STROKE: NO. Assessment & Plan - Diagnosis (1) End-stage renal disease on hemodialysis Is this a current diagnosis for this admission?: Yes Plan: Dialysis tomorrow. (2) Acute UTI (urinary tract infection) Is this a current diagnosis for this admission?: Yes Plan: Due to E. coli. Patient on IV ceftriaxone. Per hospitalist service. (3) Acute encephalopathy Is this a current diagnosis for this admission?: Yes Plan: Secondary to acute infection. Currently resolved and at his baseline mental state. Patient did have some fluctuating mental status over the weekend which probably could be attributed to sundowning or possibly developing dementia aside from the infection. (4) Anemia in chronic kidney disease (CKD) Qualifiers: Chronic kidney disease stage: on chronic dialysis Qualified Code(s): N18.6 - End stage renal disease; D63.1 - Anemia in chronic kidney disease; D63.1 - Anemia in chronic kidney disease; Z99.2 - Dependence on renal dialysis; Z99.2 - Dependence on renal dialysis; Z99.2 - Dependence on renal dialysis; Z99.2 - Depe ndence on renal dialysis Is this a current diagnosis for this admission?: Yes Plan: Procrit only as needed during dialysis treatment. (5) Acute bronchitis Qualifiers: Bronchitis organism: unspecified organism Qualified Code(s): J20.9 - Acute bronchitis, unspecified Is this a current diagnosis for this admission?: Yes Plan: Sputum culture positive for MRSA. Patient was started with Bactrim. Dose needs to be decreased to 50% given after dialysis. (6) COPD (chronic obstructive pulmonary disease) Qualifiers: COPD type: unspecified COPD Qualified Code(s): J44.9 - Chronic obstructive pulmonary disease, unspecified Is this a current diagnosis for this admission?: Yes - Time Time with patient: 15-25 minutes
--- NOTE | 2019-04-29 12:54 | PDOC PROGRESS REPORT ---
Subjective Progress Note for:: 04/29/19 Subjective:: 78 year old male who presented to the emergency room with acute confusion. His son brought him to the emergency room and answers questions as his father is unable to participate in his historical record due to his acute encephalopathy. His son relates that the patient went to dialysis as usual earlier today and after completing dialysis left the dialysis center but was sitting outside for 2 to 3 hours when the dialysis staff went out to speak with him and found that he was disoriented and had a fever. He was subsequently transported to the emergency room by his son for evaluation. His son admits prior similar episodes usually resulting from a urinary tract infection or a pulmonary infection. His son relates that the dialysis staff noted that he had a cough this morning and took some cough drops and he also had an episode of diarrhea yesterday after e ating fried foods which is not uncommon for him. His son has not identified any additional associated or accompanying signs or symptoms, nor has he identified any additional aggravating or ameliorating factors for his father's confusion. In the emergency room the patient was found to be febrile with a fever of 103.1 F and had an elevated white blood count at 12,600 with modest hypotension (MAP of 63 and 68) and an elevated serum lactate. Patient was subsequently admitted to [facility] for treatment of his severe sepsis. 04/22/2019. Patient comfortably resting in bed, alert oriented x3, confusion has resolved, vitals are stable. Denies any fever, chills, nausea, vomiting, diarrhea, constipation or any urinary symptoms. 04/23/2019-patient is comfortable in the dialysis chair communicating okay. He has extremely difficulty in hearing. Able to give me his date of and location. No acute events in the last 24 hours. Afebrile. 04/24/2019-patient is comfortably in the chair eating his breakfast. Not in distress. Communicating okay. no Acute events in the last 24 hours. Afebrile. 04/25/2019-patient in the dialysis unit today comfortable in the dialysis chair. Expressing desire to go home. Sputum cultures came back positive for gram- positive cocci today. Urine culture is also positive for E. coli and presently on IV Rocephin. T-max is 98.5. No acute events in the last 24 hours. Afebrile. 04/26/2019-pt is comfortably in the bed expressing desire to go home. Sputum culture pending back positive for gram-positive cocci in clusters. Urine culture is positive for E. coli on IV Rocephin. Afebrile. He has a successful dialysis yesterday. 04/27/2019-patient is more alert more awake communicating well. No complaints. Yesterday he was confused agitated crying family concerned about mental status changes no acute events in the last 24 hours. He did time of my examination patient is comfortably in the bed communicating extremely well. Patient has extreme difficulty in hearing. 04/28/2019-patient is comfortably sleeping in the bed. No acute events in the last 24 hours. Afebrile. Going for the dialysis today. Family is requesting for a rehab placement. 04/29/2019-patient is comfortable in the bed woke up on calling. No complaints. Patient is receiving Bactrim DS 1 tablet daily for MRSA in the sputum and IV Rocephin for E. coli in the urine. Family is thinking about to take him home with home health. No acute events in the last 24 hours. Afebrile. Reason For Visit: SEPSIS,FEVER,HYPOTENSION,ACUTE ENCEPHALOPATHY Physical Exam Vital Signs: Temp Pulse Resp BP Pulse Ox 97.6 F 73 16 120/53 L 92 04/29/19 08:05 04/29/19 08:05 04/29/19 08:05 04/29/19 08:05 04/29/19 08:05 Intake & Output 04/28/19 04/29/19 04/30/19 06:59 06:59 06:59 Intake Total 880 440 Output Total 1100 1260 Balance -220 -820 Weight 79 kg 79.4 kg General appearance: PRESENT: no acute distress, thin Head exam: PRESENT: atraumatic Eye exam: PRESENT: PERRLA Mouth exam: PRESENT: moist, tongue midline Teeth exam: PRESENT: poor dentation Neck exam: ABSENT: carotid bruit, JVD, lymphadenopathy, thyromegaly Respiratory exam: PRESENT: decreased breath sounds Cardiovascular exam: PRESENT: RRR. ABSENT: diastolic murmur, rubs, systolic murmur GI/Abdominal exam: PRESENT: normal bowel sounds, soft. ABSENT: distended, guarding, mass, organolmegaly, rebound, tenderness Rectal exam: PRESENT: deferred Extremities exam: PRESENT: full ROM, other - AV fistula on the left arm is functioning well.. ABSENT: calf tenderness, clubbing, pedal edema Neurological exam: PRESENT: alert, awake, oriented to person, oriented to place, oriented to time, oriented to situation, CN II-XII grossly intact. ABSENT: motor sensory deficit Psychiatric exam: PRESENT: appropriate affect, normal mood. ABSENT: homicidal ideation, suicidal ideation Results Laboratory Results: 04/28/19 04:53 04/28/19 04:53 04/21/19 17:52 Troponin I 0.055 Impressions: Chest X-Ray 04/21/19 22:01 IMPRESSION: No acute disease. copyright 2010 [employer]- All Rights Reserved Head CT 04/26/19 00:00 IMPRESSION: CHRONIC CHANGES OF ATROPHY AND MICROVASCULAR ISCHEMIA. NO ACUTE PROCESS. EVIDENCE OF ACUTE STROKE: NO. Assessment and Plan - Plan Summary Summary: Patient is admitted and will be treated on the sepsis protocol in [facility]. He will receive vasopressor if necessary after adequate fluid volume replacement. Will be treated with acetaminophen and his mental status will be monitored closely with neuro checks. He will receive usual supportive and symptomatic cares as required. Operatory evaluations will be as outlined per sepsis protocol. Antibiotic therapy will be per the sepsis protocol. (1) Severe sepsis with acute organ dysfunction Is this a current diagnosis for this admission?: Yes Plan: Evidenced by leukocytosis, encephalopathy, elevated lactic acid, hypertension, fever. Likely source urine. Leukocytosis improving, encephalopathy resolved, lactic acid WNL, normotensive, afebrile. Was started on volume resuscitation and IV empiric antibiotics. Currently euvolemic, DC IV fluids as patient is end-stage renal disease. Continue empiric IV antibiotics. Transition to p.o. once appropriate. Follow-up cultures. 04/23/2019-patient came in with elevated WBC count, acute encephalopathy, elevated lactic acid levels, fever. Blood pressure today is 98/42 T-max is 97.8. WBC count is 10,200 normalized. Sepsis is resolving. Patient alert and awake communicating well looks like his mental status is back to baseline. 04/24/2019-patient is afebrile T-max is 97.7 presently on IV Rocephin for E. coli in the urine. Plan is to continue the antibiotic therapy and probably discharge home tomorrow. 04/25/2019-patient admitted with severe sepsis with acute organ dysfunction hypotension resolved. Urine cultures came back positive for E. coli on IV Rocephin. Sputum cultures came back gram-positive cocci in clusters. Patient may have to stay over the weekend for continued addition of the IV antibiotic therapy. 04/26/2019-patient admitted with severe sepsis and acute organ failure which was resolved. Culture positive for gram-positive cocci in clusters urine culture is positive for E. coli. Presently on IV Rocephin and is afebrile. 04/27/2019-sputum cultures came back positive for MRSA presently on p.o. Bactrim. Also found to have urine culture positive for E. coli and IV Rocephin. Afebrile. WBC count within normal limits. Plan is to continue the present management for at least another 24 to 48 hours. 04/28/2019-sputum cultures came back positive for MRSA presently on Bactrim. Urine culture is also positive for E. coli on IV Rocephin. Patient is going for dialysis this morning family is requesting for short-term placement. Physical therapy consult was requested. 04/29/2019-sputum cultures are positive for MRSA and patient is receiving p.o. Bactrim 1 tablet daily. Urine culture is positive for E. coli and IV Rocephin. He is going to receive dialysis tomorrow. No acute events. (2) End-stage renal disease on hemodialysis Is this a current diagnosis for this admission?: Yes Plan: On hemodialysis Sunday. Continue renal diet, monitor volume status, monitor electrolytes and replace as needed. Consult nephrology for continued hemodialysis while inpatient. Outpatient nephrology follow-up. 04/23/2019-patient has history of end-stage renal disease on hemodialysis is getting the dialysis today. Nephrology on board. 04/24/2019-patient is going to get another session of dialysis tomorrow prior to discharge. 04/25/2019-patient is in the dialysis unit today comfortable in the chair communicating okay. Not in distress. Vital signs are stable. 04/27/2019-patient's last dialysis is on Sunday,, next session is tomorrow. 04/28/2019-last dialysis session is on Sunday completed dialysis without any complications is going for dialysis this morning. 04/29/2019-patient's electrolytes are stable he is going for dialysis tomorrow. (3) Acute encephalopathy Is this a current diagnosis for this admission?: Yes Plan: Acute metabolic encephalopathy most likely due to underlying sepsis. Resolved. Plan as per #1. 04/23/2019-altered mental status/acute encephalopathy most likely secondary to sepsis resolving. His mental status is back to baseline. 04/25/2019-patient admitted with acute encephalopathy/altered mental status most likely secondary to sepsis which was resolving. 04/26/2019-patient admitted with acute encephalopathy most likely secondary to sepsis and multiorgan failure patient's mental status back to baseline. 04/27/2019-acute encephalopathy/altered mental status due to advanced age resolved. Sepsis is also a contributing factor which was resolved. 04/28/2019-patient admitted with acute encephalopathy/altered mental status most likely secondary to sepsis which was resolved. 04/29/2019-patient came in with altered mental status/acute metabolic encephalopathy which was resolved. (4) UTI (urinary tract infection) Qualifiers: Urinary tract infection type: acute pyelonephritis Qualified Code(s): N10 - Acute pyelonephritis Is this a current diagnosis for this admission?: Yes Plan: Urine cultures came back positive for E. coli pansensitive. pt Is presently on meropenem. Plan is to discontinue meropenem and start him on ceftriaxone. 04/24/2019-urine cultures came back positive for E. coli and the patient is on IV Rocephin. Afebrile. 04/25/2019-patient is receiving IV Rocephin for E. coli. 04/28/2019-urine culture came back positive for E. coli and IV Rocephin daily. (5) Anemia, chronic disease Is this a current diagnosis for this admission?: Yes Plan: Hemoglobin at baseline. No sign of bleeding. Continue monitoring H&H. Outpatient nephrology follow-up. 04/25/2019-patient's hemoglobin is 11.1 stable. 04/28/2019-latest hemoglobin is 10.1 stable. Anemia of chronic disease most likely secondary to end-stage renal disease. 2018-patient has anemia of chronic disease most likely secondary to end-stage renal disease patient may receive Procrit as per nephrology recommendations. (6) Coronary artery disease Qualifiers: Coronary Disease-Associated Artery/Lesion type: [place] artery [place] vs. transplanted heart: [place] heart Associated angina: without angina Qualified Code(s): I25.10 - Atherosclerotic heart disease of [place] coronary artery without angina pectoris Is this a current diagnosis for this admission?: Yes Plan: Denies any anginal symptoms. Continue antiplatelets, nitrates, statins. (7) COPD (chronic obstructive pulmonary disease) Qualifiers: COPD type: unspecified COPD Qualified Code(s): J44.9 - Chronic obstructive pulmonary disease, unspecified Is this a current diagnosis for this admission?: Yes Plan: Mild wheezing on respiratory examination. Former smoker. Not on home O2. DuoNeb's, p.o. steroids, PRN BiPAP, supplemental oxygen, flutter valve, incentive spirometer. 04/24/2019-on examination chest bilateral it was decreased no wheezing no crepitations. Pulse ox is 97% on 2 L. To discontinue p.o. prednisone from today. 04/26/2019-patient pulse ox is 91% on 3 L. Stable. Plan is to continue the present management. 04/27/2019-pulse ox is 92% on 2 L this morning patient is receiving Xopenex nebulizations. Wheezing is much improved compared to yesterday. Sputum culture positive for MRSA. 04/28/2019-pulse ox today is 97% on 2 L improving from yesterday. Presently receiving IV Rocephin and p.o. Bactrim and Xopenex nebulizations as needed. On examination chest bilateral entry was decreased bilateral wheezing is significa ntly improved. 04/29/2019-patient's pulse ox is 91% on room air today on examination bilateral entry was decreased very minimal wheezing is present. Receiving Bactrim DS 1 tablet daily for MRSA in the sputum is also on Xopenex nebulizations on as- needed basis. - Time Time Spent with patient: 25-34 minutes Medications reviewed and adjusted accordingly: Yes Anticipated discharge: Home
--- NOTE | 2019-04-29 13:56 | PDOC DISCHARGE SUMMARY ---
Impression - Admit/DC Date/PCP Admission Date/Primary Care Provider: 04/21/19 22:39 [facility] Discharge Date: 04/29/19 - Assessment Summary: Patient is admitted and will be treated on the sepsis protocol in [facility]. He will receive vasopressor if necessary after adequate fluid volume replacement. Will be treated with acetaminophen and his mental status will be monitored closely with neuro checks. He will receive usual supportive and symptomatic cares as required. Operatory evaluations will be as outlined per sepsis protocol. Antibiotic therapy will be per the sepsis protocol. (1) Severe sepsis with acute organ dysfunction Is this a current diagnosis for this admission?: Yes Plan: Evidenced by leukocytosis, encephalopathy, elevated lactic acid, hypertension, fever. Likely source urine. Leukocytosis improving, encephalopathy resolved, lactic acid WNL, normotensive, afebrile. Was started on volume resuscitation and IV empiric antibiotics. Currently euvolemic, DC IV fluids as patient is end-stage renal disease. Continue empiric IV antibiotics. Transition to p.o. once appropriate. Follow-up cultures. 04/23/2019-patient came in with elevated WBC count, acute encephalopathy, elevated lactic acid levels, fever. Blood pressure today is 98/42 T-max is 97.8. WBC count is 10,200 normalized. Sepsis is resolving. Patient alert and awake communicating well looks like his mental status is back to baseline. 04/24/2019-patient is afebrile T-max is 97.7 presently on IV Rocephin for E. coli in the urine. Plan is to continue the antibiotic therapy and probably discharge home tomorrow. 04/25/2019-patient admitted with severe sepsis with acute organ dysfunction hypotension resolved. Urine cultures came back positive for E. coli on IV Rocephin. Sputum cultures came back gram-positive cocci in clusters. Patient may have to stay over the weekend for continued addition of the IV antibiotic therapy. 04/26/2019-patient admitted with severe sepsis and acute organ failure which was resolved. Culture positive for gram-positive cocci in clusters urine culture is positive for E. coli. Presently on IV Rocephin and is afebrile. 04/27/2019-sputum cultures came back positive for MRSA presently on p.o. Bactrim. Also found to have urine culture positive for E. coli and IV Rocephin. Afebrile. WBC count within normal limits. Plan is to continue the present management for at least another 24 to 48 hours. 04/28/2019-sputum cultures came back positive for MRSA presently on Bactrim. Urine culture is also positive for E. coli on IV Rocephin. Patient is going for dialysis this morning family is requesting for short-term placement. Physical therapy consult was requested. 04/29/2019-sputum cultures are positive for MRSA and patient is receiving p.o. Bactrim 1 tablet daily. Urine culture is positive for E. coli and IV Rocephin. He is going to receive dialysis tomorrow. No acute events. (2) End-stage renal disease on hemodialysis Is this a current diagnosis for this admission?: Yes Plan: On hemodialysis Sunday. Continue renal diet, monitor volume status, monitor electrolytes and replace as needed. Consult nephrology for continued hemodialysis while inpatient. Outpatient nephrology follow-up. 04/23/2019-patient has history of end-stage renal disease on hemodialysis is getting the dialysis today. Nephrology on board. 04/24/2019-patient is going to get another session of dialysis tomorrow prior to discharge. 04/25/2019-patient is in the dialysis unit today comfortable in the chair communicating okay. Not in distress. Vital signs are stable. 04/27/2019-patient's last dialysis is on Sunday,, next session is tomorrow. 04/28/2019-last dialysis session is on Sunday completed dialysis without any complications is going for dialysis this morning. 04/29/2019-patient's electrolytes are stable he is going for dialysis tomorrow. (3) Acute encephalopathy Is this a current diagnosis for this admission?: Yes Plan: Acute metabolic encephalopathy most likely due to underlying sepsis. Resolved. Plan as per #1. 04/23/2019-altered mental status/acute encephalopathy most likely secondary to sepsis resolving. His mental status is back to baseline. 04/25/2019-patient admitted with acute encephalopathy/altered mental status most likely secondary to sepsis which was resolving. 04/26/2019-patient admitted with acute encephalopathy most likely secondary to sepsis and multiorgan failure patient's mental status back to baseline. 04/27/2019-acute encephalopathy/altered mental status due to advanced age resolved. Sepsis is also a contributing factor which was resolved. 04/28/2019-patient admitted with acute encephalopathy/altered mental status most likely secondary to sepsis which was resolved. 04/29/2019-patient came in with altered mental status/acute metabolic encephalopathy which was resolved. (4) UTI (urinary tract infection) Qualifiers: Urinary tract infection type: acute pyelonephritis Qualified Code(s): N10 - Acute pyelonephritis Is this a current diagnosis for this admission?: Yes Plan: Urine cultures came back positive for E. coli pansensitive. pt Is presently on meropenem. Plan is to discontinue meropenem and start him on ceftriaxone. 04/24/2019-urine cultures came back positive for E. coli and the patient is on IV Rocephin. Afebrile. 04/25/2019-patient is receiving IV Rocephin for E. coli. 04/28/2019-urine culture came back positive for E. coli and IV Rocephin daily. (5) Anemia, chronic disease Is this a current diagnosis for this admission?: Yes Plan: Hemoglobin at baseline. No sign of bleeding. Continue monitoring H&H. Outpatient nephrology follow-up. 04/25/2019-patient's hemoglobin is 11.1 stable. 04/28/2019-latest hemoglobin is 10.1 stable. Anemia of chronic disease most likely secondary to end-stage renal disease. 2018-patient has anemia of chronic disease most likely secondary to end-stage renal disease patient may receive Procrit as per nephrology recommendations. (6) Coronary artery disease Qualifiers: Coronary Disease-Associated Artery/Lesion type: [place] artery [place] vs. transplanted heart: [place] heart Associated angina: without angina Qualified Code(s): I25.10 - Atherosclerotic heart disease of [place] coronary artery without angina pectoris Is this a current diagnosis for this admission?: Yes Plan: Denies any anginal symptoms. Continue antiplatelets, nitrates, statins. (7) COPD (chronic obstructive pulmonary disease) Qualifiers: COPD type: unspecified COPD Qualified Code(s): J44.9 - Chronic obstructive pulmonary disease, unspecified Is this a current diagnosis for this admission?: Yes Plan: Mild wheezing on respiratory examination. Former smoker. Not on home O2. DuoNeb's, p.o. steroids, PRN BiPAP, supplemental oxygen, flutter valve, incentive spirometer. 04/24/2019-on examination chest bilateral it was decreased no wheezing no crepitations. Pulse ox is 97% on 2 L. To discontinue p.o. prednisone from today. 04/26/2019-patient pulse ox is 91% on 3 L. Stable. Plan is to continue the present management. 04/27/2019-pulse ox is 92% on 2 L this morning patient is receiving Xopenex nebulizations. Wheezing is much improved compared to yesterday. Sputum culture positive for MRSA. 04/28/2019-pulse ox today is 97% on 2 L improving from yesterday. Presently receiving IV Rocephin and p.o. Bactrim and Xopenex nebulizations as needed. On examination chest bilateral entry was decreased bilateral wheezing is significantly improved. 04/29/2019-patient's pulse ox is 91% on room air today on examination bilateral entry was decreased very minimal wheezing is present. Receiving Bactrim DS 1 tablet daily for MRSA in the sputum is also on Xopenex nebulizations on as- needed basis. - Additional Information Resuscitation Status: Full Code Discharge Diet: Cardiac Discharge Activity: Activity As Tolerated [facility]: [facility] [[facility]] - Follow up as needed Prescriptions: Sulfamethoxazole/Trimethoprim [Bactrim Ds Tablet] 1 each PO DAILY #10 tablet Home Medications: Calcium Carbonate [Tums Chewable 500 mg Tab.chew] 500 mg PO DAILY 04/17/18 Folic Acid/Vitamin B Comp W-C [Nephrocaps Multiple Vitamin Capsule] 1 cap PO QHS 04/17/18 Magnesium Oxide [Mag-Ox 400 mg Tablet] 400 mg PO DAILY 04/17/18 Omeprazole 20 mg PO DAILY 04/17/18 Sodium Bicarbonate [Sodium Bicarbonate 650 mg Tablet] 650 mg PO Q12 04/17/18 Aspirin [Ecotrin 81 mg EC Tablet] 81 mg PO QHS tabec 09/17/18 Isosorbide Dinitrate [Isordil Titradose 20 mg Tablet] 20 mg PO Q12 01/15/19 Cetirizine HCl [Zyrtec 10 mg Tablet] 1 tab PO DAILY 04/22/19 Atorvastatin Calcium [Lipitor 20 mg Tablet] 20 mg PO QHS tablet 04/29/19 Sulfamethoxazole/Trimethoprim [Bactrim Ds Tablet] 1 each PO DAILY #10 tablet 04/29/19 History of Present Illiness History of Present Illness: TYLOR JIEMNEZ is a 78 year old male 78 year old male who presented to the emergency room with acute confusion. His son brought him to the emergency room and answers questions as his father is unable to participate in his historical record due to his acute encephalopathy. His son relates that the patient went to dialysis as usual earlier today and after completing dialysis left the dialysis center but was sitting outside for 2 to 3 hours when the dialysis staff went out to speak with him and found that he was disoriented and had a fever. He was subsequently transported to the emergency room by his son for evaluation. His son admits prior similar episodes usually resulting from a urinary tract infection or a pulmonary infection. His son relates that the dialysis staff noted that he had a cough this morning and took some cough drops and he also had an episode of diarrhea yesterday after eating fried foods which is not uncommon for him. His son has not identified any additional associated or accompanying signs or symptoms, nor has he identified any additional aggravating or ameliorating factors for his father's confusion. In the emergency room the patient was found to be febrile with a fever of 103.1 F and had an elevated white blood count at 12,600 with modest hypotension (MAP of 63 and 68) and an elevated serum lactate. Patient was subsequently admitted to [facility] for treatment of his severe sepsis. Hospital Course Hospital Course: 78 year old male who presented to the emergency room with acute confusion. His son brought him to the emergency room and answers questions as his father is unable to participate in his historical record due to his acute encephalopathy. His son relates that the patient went to dialysis as usual earlier today and after completing dialysis left the dialysis center but was sitting outside for 2 to 3 hours when the dialysis staff went out to speak with him and found that he was disoriented and had a fever. He was subsequently transported to the emergency room by his son for evaluation. His son admits prior similar episodes usually resulting from a urinary tract infection or a pulmonary infection. His son relates that the dialysis staff noted that he had a cough this morning and took some cough drops and he also had an episode of diarrhea yesterday after eating fried foods which is not uncommon for him. His son has not identified any additional associated or accompanying signs or symptoms, nor has he identified any additional aggravating or ameliorating factors for his father's confusion. In the emergency room the patient was found to be febrile with a fever of 103.1 F and had an elevated white blood count at 12,600 with modest hypotension (MAP of 63 and 68) and an elevated serum lactate. Patient was subsequently admitted to [facility] for treatment of his severe sepsis. 04/22/2019. Patient comfortably resting in bed, alert oriented x3, confusion has resolved, vitals are stable. Denies any fever, chills, nausea, vomiting, diarrhea, constipation or any urinary symptoms. 04/23/2019-patient is comfortable in the dialysis chair communicating okay. He has extremely difficulty in hearing. Able to give me his date of and location. No acute events in the last 24 hours. Afebrile. 04/24/2019-patient is comfortably in the chair eating his breakfast. Not in distress. Communicating okay. no Acute events in the last 24 hours. Afebrile. 04/25/2019-patient in the dialysis unit today comfortable in the dialysis chair. Expressing desire to go home. Sputum cultures came back positive for gram- positive cocci today. Urine culture is also positive for E. coli and presently on IV Rocephin. T-max is 98.5. No acute events in the last 24 hours. Afebrile. 04/26/2019-pt is comfortably in the bed expressing desire to go home. Sputum culture pending back positive for gram-positive cocci in clusters. Urine culture is positive for E. coli on IV Rocephin. Afebrile. He has a successful dialysis yesterday. 04/27/2019-patient is more alert more awake communicating well. No complaints. Yesterday he was confused agitated crying family concerned about mental status changes no acute events in the last 24 hours. He did time of my examination patient is comfortably in the bed communicating extremely well. Patient has extreme difficulty in hearing. 04/28/2019-patient is comfortably sleeping in the bed. No acute events in the last 24 hours. Afebrile. Going for the dialysis today. Family is requesting for a rehab placement. 04/29/2019-patient is comfortable in the bed woke up on calling. No complaints. Patient is receiving Bactrim DS 1 tablet daily for MRSA in the sputum and IV Rocephin for E. coli in the urine. Family is thinking about to take him home with home health. No acute events in the last 24 hours. Afebrile. Physical Exam Vital Signs: Temp Pulse Resp BP Pulse Ox 97.6 F 73 16 120/53 L 92 04/29/19 08:05 04/29/19 08:05 04/29/19 08:05 04/29/19 08:05 04/29/19 08:05 Intake & Output 04/28/19 04/29/19 04/30/19 06:59 06:59 06:59 Intake Total 880 440 Output Total 1100 1260 Balance -220 -820 Weight 79 kg 79.4 kg General appearance: PRESENT: no acute distress, cooperative, thin Head exam: PRESENT: atraumatic Eye exam: PRESENT: PERRLA Teeth exam: PRESENT: poor dentation Neck exam: ABSENT: carotid bruit, JVD, lymphadenopathy, thyromegaly Respiratory exam: PRESENT: decreased breath sounds Cardiovascular exam: PRESENT: RRR. ABSENT: diastolic murmur, rubs, systolic murmur GI/Abdominal exam: PRESENT: normal bowel sounds, soft. ABSENT: distended, guarding, mass, organolmegaly, rebound, tenderness Rectal exam: PRESENT: deferred Extremities exam: PRESENT: full ROM. ABSENT: calf tenderness, clubbing, pedal edema Neurological exam: PRESENT: alert, awake, oriented to person, oriented to place, oriented to time, oriented to situation, CN II-XII grossly intact. ABSENT: motor sensory deficit Psychiatric exam: PRESENT: appropriate affect, normal mood. ABSENT: homicidal ideation, suicidal ideation Results Laboratory Results: WBC 9.4 10^3/uL (4.0-10.5) 04/28/19 04:53 RBC 3.18 10^6/uL (4.35-5.55) L 04/28/19 04:53 Hgb 10.1 g/dL (13.5-17.0) L 04/28/19 04:53 Hct 29.8 % (37.9-51.0) L 04/28/19 04:53 MCV 94 fl (80-97) 04/28/19 04:53 MCH 31.8 pg (27.0-33.4) 04/28/19 04:53 MCHC 33.9 g/dL (32.0-36.0) 04/28/19 04:53 RDW 13.4 % (11.5-14.0) 04/28/19 04:53 Plt Count 156 10^3/uL (150-450) 04/28/19 04:53 Lymph % (Auto) 18.8 % (13-45) 04/28/19 04:53 Jackson % (Auto) 9.3 % (3-13) 04/28/19 04:53 Eos % (Auto) 4.0 % (0-6) 04/28/19 04:53 Baso % (Auto) 0.6 % (0-2) 04/28/19 04:53 Absolute Neuts (auto) 6.3 10^3/uL (1.7-8.2) 04/28/19 04:53 Absolute Lymphs (auto) 1.8 10^3/uL (0.5-4.7) 04/28/19 04:53 Absolute Monos (auto) 0.9 10^3/uL (0.1-1.4) 04/28/19 04:53 Absolute Eos (auto) 0.4 10^3/uL (0.0-0.6) 04/28/19 04:53 Absolute Basos (auto) 0.1 10^3/uL (0.0-0.2) 04/28/19 04:53 Seg Neutrophils % 67.3 % (42-78) 04/28/19 04:53 PT 14.0 SEC (11.4-15.4) 04/21/19 17:52 INR 1.08 04/21/19 17:52 VBG pH 7.40 (7.30-7.42) 04/21/19 17:52 VBG pCO2 44.4 mmHg (35-63) 04/21/19 17:52 VBG HCO3 27.0 mmol/L (20-32) 04/21/19 17:52 VBG Base Excess 1.6 mmol/L 04/21/19 17:52 Sodium 141.7 mmol/L (137-145) 04/28/19 04:53 Potassium 4.2 mmol/L (3.6-5.0) 04/28/19 04:53 Chloride 104 mmol/L (98-107) 04/28/19 04:53 Carbon Dioxide 25 mmol/L (22-30) 04/28/19 04:53 Anion Gap 13 (5-19) 04/28/19 04:53 BUN 78 mg/dL (7-20) H 04/28/19 04:53 Creatinine 5.24 mg/dL (0.52-1.25) H 04/28/19 04:53 Est GFR ( Amer) 13 (>60) L 04/28/19 04:53 Est GFR (MDRD) Non-Af 11 (>60) L 04/28/19 04:53 Glucose 109 mg/dL (75-110) 04/28/19 04:53 POC Glucose 152 mg/dL (70-110) H 04/22/19 21:32 Lactic Acid 1.0 mmol/L (0.7-2.1) 04/22/19 08:35 Calcium 7.5 mg/dL (8.4-10.2) L 04/28/19 04:53 Magnesium 2.2 mg/dL (1.6-2.3) 04/27/19 08:13 Total Bilirubin 0.4 mg/dL (0.2-1.3) 04/27/19 08:13 Direct Bilirubin 0.3 mg/dL (0.0-0.4) 04/27/19 08:13 Neonat Total Bilirubin Not Reportable 04/27/19 08:13 Neonat Direct Bilirubin Not Reportable 04/27/19 08:13 Neonat Indirect Bili Not Reportable 04/27/19 08:13 AST 37 U/L (17-59) 04/27/19 08:13 ALT 73 U/L (<50) 04/27/19 08:13 Alkaline Phosphatase 85 U/L (38-126) 04/27/19 08:13 Troponin I 0.055 ng/mL 04/21/19 17:52 Total Protein 6.5 g/dL (6.3-8.2) 04/27/19 08:13 Albumin 3.8 g/dL (3.5-5.0) 04/27/19 08:13 Urine Color HAJA 04/21/19 17:52 Urine Appearance CLOUDY 04/21/19 17:52 Urine pH 7.0 (5.0-9.0) 04/21/19 17:52 Ur Specific Pitcher 1.014 04/21/19 17:52 Urine Protein 30 mg/dL (NEGATIVE) H 04/21/19 17:52 Urine Glucose (UA) NEGATIVE mg/dL (NEGATIVE) 04/21/19 17:52 Urine Ketones NEGATIVE mg/dL (NEGATIVE) 04/21/19 17:52 Urine Blood NEGATIVE (NEGATIVE) 04/21/19 17:52 Urine Nitrite NEGATIVE (NEGATIVE) 04/21/19 17:52 Urine Bilirubin NEGATIVE (NEGATIVE) 04/21/19 17:52 Urine Urobilinogen 2.0 mg/dL (<2.0) H 04/21/19 17:52 Ur Leukocyte Esterase LARGE (NEGATIVE) H 04/21/19 17:52 Urine WBC (Auto) 32 /HPF 04/21/19 17:52 Urine RBC (Auto) 3 /HPF 04/21/19 17:52 Urine Bacteria (Auto) 1+ /HPF 04/21/19 17:52 Squamous Epi Cells Auto 1 /HPF 04/21/19 17:52 Amorphous Sediment Auto TRACE /HPF 04/21/19 17:52 Urine Mucus (Auto) RARE /LPF 04/21/19 17:52 Urine Ascorbic Acid NEGATIVE (NEGATIVE) 04/21/19 17:52 04/21/19 17:52 Troponin I 0.055 Impressions: Chest X-Ray 04/21/19 22:01 IMPRESSION: No acute disease. copyright 2010 [employer]- All Rights Reserved Head CT 04/26/19 00:00 IMPRESSION: CHRONIC CHANGES OF ATROPHY AND MICROVASCULAR ISCHEMIA. NO ACUTE PROCESS. EVIDENCE OF ACUTE STROKE: NO. Plan Time Spent: Greater than 30 Minutes Stroke Is this a Stroke Patient?: No Acute Heart Failure - Is this a Heart Failure Patient?: No
[2019-04-29 14:28] VITALS: BP 120/59
[2019-04-29] MEDS ORDERED: VITAMIN B COMPLEX TABLET PO SCH (22:00)
[2019-04-30] MEDS ORDERED: NORMAL SALINE 1000 ML 1,000 ML IV PRN (05:00)
== END 2019-04-29 15:50 | disposition home health service (06) | DRG 871 ==
LOC: ER 17:33 → EH 22:39 → 3W 04-22 01:08
PROVIDERS: ADMIT Emergency Medicine; ATTEND Emergency Medicine
PROC: 5A1D70Z Performance of Urinary Filtration, Intermittent, Less than 6 Hours Per Day (ICD-10-PCS; principal; 2019-04-23)
PROC: 5A1D70Z Performance of Urinary Filtration, Intermittent, Less than 6 Hours Per Day (ICD-10-PCS; 2019-04-25)
PROC: 5A1D70Z Performance of Urinary Filtration, Intermittent, Less than 6 Hours Per Day (ICD-10-PCS; 2019-04-28)
DX: A41.9 Sepsis, unspecified organism (principal); G93.41 Metabolic encephalopathy; N18.6 End stage renal disease; N10 Acute pyelonephritis; I13.11 Hypertensive heart and chronic kidney disease without heart failure, with stage 5 chronic kidney disease, or end stage renal disease; N17.9 Acute kidney failure, unspecified; J44.0 Chronic obstructive pulmonary disease with (acute) lower respiratory infection; R65.20 Severe sepsis without septic shock; B96.20 Unspecified Escherichia coli [E. coli] as the cause of diseases classified elsewhere; J20.9 Acute bronchitis, unspecified; B95.62 Methicillin resistant Staphylococcus aureus infection as the cause of diseases classified elsewhere; D63.1 Anemia in chronic kidney disease; J44.9 Chronic obstructive pulmonary disease, unspecified; I25.10 Atherosclerotic heart disease of native coronary artery without angina pectoris; Z99.2 Dependence on renal dialysis; I73.9 Peripheral vascular disease, unspecified; E78.5 Hyperlipidemia, unspecified; Z85.51 Personal history of malignant neoplasm of bladder; Z85.46 Personal history of malignant neoplasm of prostate; Z90.79 Acquired absence of other genital organ(s); M10.9 Gout, unspecified; Z95.1 Presence of aortocoronary bypass graft; Z96.641 Presence of right artificial hip joint; Z87.891 Personal history of nicotine dependence; Z96.0 Presence of urogenital implants; Z88.1 Allergy status to other antibiotic agents; Z28.21 Immunization not carried out because of patient refusal
CPT/HCPCS: 36415; 70450; 71045; 80048; 80053; 81001; 82803; 82962; 83605; 83735; 84484; 85025; 85610; 87040; 87070; 87077; 87086; 87088; 87186; 87205; 93005; 93010; 94640; 94799; 96365; 99285; J0696; J2185; J3490; J7120; J7512; J7614; J7620

== ENCOUNTER 2019-09-30 11:21 | Emergency (ER) | payer OTHER, MEDICARE ==
[2019-09-30] MEDS ORDERED: ONDANSETRON HCL INJ/PF 4 MG/2 ML SDV IV ONE ×2 (11:57→16:00)
[2019-09-30] MEDS ORDERED: NORMAL SALINE 1000 ML 1,000 ML IV ONE (11:59)
[2019-09-30] MEDS ORDERED: ACETAMINOPHEN 1,000 MG/100 ML RTUPB IV ONE ×2 (12:04→15:15)
--- NOTE | 2019-09-30 12:04 | ER Document Report ---
ED Medical Screen (RME) - General Chief Complaint: Nausea/Vomiting Stated Complaint: VOMITING/CHILLS/DIAHERRA/COUGH/WEAKNESS Time Seen by Provider: 09/30/19 11:53 Primary Care Provider: FRANCINE,ANTONIO [Primary Care Provider] - Follow up as needed Mode of Arrival: Ambulatory Information source: Patient Notes: 79-year-old male patient presents to the emergency department chief complaint of nausea, vomiting, diarrhea and fever. Patient reports symptoms started yesterday. Denies any recent travel. Denies any cough. Lung sounds clear and equal bilaterally. Abdomen soft, nontender. I have greeted and performed a rapid initial assessment of this patient. A comprehensive ED assessment and evaluation of the patient, analysis of test results and completion of the medical decision making process will be conducted by additional ED providers. I have specifically instructed the patient or family members with the patient to immediately return to any nursing staff deonte uld anything change in the patient's condition or with their chief complaint. TRAVEL OUTSIDE OF THE [place] IN LAST 30 DAYS: No - Related Data Allergies/Adverse Reactions: ciprofloxacin [From Cipro] Allergy (Verified 01/14/19 18:11) Home Medications: Omeprazole, Cetirizine, Isosorbide, Atorvastatin Past Medical History - Past Medical History Cardiac Medical History: Reports: Hx Congestive Heart Failure, Hx Coronary Artery Disease, Hx Hypercholesterolemia, Hx Hypertension, Hx Peripheral Vascular Disease Pulmonary Medical History: Reports: Hx COPD - Possible, Hx Pneumonia Neurological Medical History: Denies: Hx Cerebrovascular Accident, Hx Seizures Endocrine Medical History: Denies: Hx Diabetes Mellitus Type 1, Hx Diabetes Mellitus Type 2, Hx Hyperthyroidism, Hx Hypothyroidism Renal/ Medical History: Reports: Hx End Stage Renal Disease - On hemodialysis Sunday and Sunday with Dr. Cespedes.. 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 Denies: Hx Hepatitis Past Surgical History: Reports: Hx Cardiac Catheterization, Hx Cardiac Surgery - CABG, Hx Coronary Artery Bypass Graft, Hx Genitourinary Surgery - urostomy, Hx Orthopedic Surgery - Right hip hemiarthroplasty August 2016, Hx Urinary Tract Surgery - bladder /prostate, Hx Vascular Surgery - AAA repair, Other - Nephrostomy tube placement, creation of ileal conduit, prostatectomy - Immunizations Immunizations up to date: Yes Hx Diphtheria, Pertussis, Tetanus Vaccination: Yes Physical Exam - Vital signs Vitals: Temp Pulse Resp BP Pulse Ox 102.4 F H 111 H 16 115/60 95 09/30/19 11:52 09/30/19 11:52 09/30/19 11:52 09/30/19 11:52 09/30/19 11:52 Course - Vital Signs Vital signs: Temp Pulse Resp BP Pulse Ox 100.5 F H 111 H 16 115/60 95 09/30/19 12:02 09/30/19 11:52 09/30/19 11:52 09/30/19 11:52 09/30/19 11:52 Doctor's Discharge - Discharge [facility]errals[facility] [[facility] - Follow up as needed
[2019-09-30 12:42] LABS: ABSOLUTE EOSINOPHILS # (AUTO) 0.1 10^3/uL (0.0-0.6); ABSOLUTE LYMPHOCYTES (AUTO) 0.6 10^3/uL (0.5-4.7); ABSOLUTE MONOCYTES (AUTO) 0.5 10^3/uL (0.1-1.4); ABSOLUTE NEUT (AUTO) 7.8 10^3/uL (1.7-8.2); BASOPHILS % (AUTO) 0.4 % (0-2); EOSINOPHILS % (AUTO) 1.1 % (0-6); HEMATOCRIT 37.9 % (37.9-51.0); LYMPHOCYTES % (AUTO) 6.7 % (13-45); MEAN CORPUSCULAR HEMOGLOBIN 31.8 pg (27.0-33.4); MEAN CORPUSCULAR HGB CONC 34.1 g/dL (32.0-36.0); MEAN CORPUSCULAR VOLUME 93 fl (80-97); MONOCYTES % (AUTO) 5.3 % (3-13); PLATELET COUNT 156 10^3/uL (150-450); RED BLOOD COUNT 4.08 10^6/uL (4.35-5.55); RED CELL DISTRIBUTION WIDTH 14.1 % (11.5-14.0); SEGMENTED NEUTROPHILS % (AUTO) 86.5 % (42-78); TOTAL CELLS COUNTED % (AUTO) 100 %
[2019-09-30 12:56] LABS: ALBUMIN 4.1 g/dL (3.5-5.0); ALKALINE PHOSPHATASE 100 U/L (38-126); ANION GAP 8 (5-19); ASPARTATE AMINO TRANSFERASE 22 U/L (17-59); BILIRUBIN,DIRECT 0.1 mg/dL (0.0-0.4); BILIRUBIN,TOTAL 0.5 mg/dL (0.2-1.3); BLOOD UREA NITROGEN 40 mg/dL (7-20); CALCIUM 8.7 mg/dL (8.4-10.2); CARBON DIOXIDE 31 mmol/L (22-30); CHLORIDE 103 mmol/L (98-107); GLUCOSE 115 mg/dL (75-110); TOTAL PROTEIN 7.5 g/dL (6.3-8.2)
[2019-09-30 15:27] LABS: AMORPHOUS SEDIMENT,URINE TRACE /HPF; APPEARANCE,URINE TURBID; BILIRUBIN,URINE NEGATIVE (NEGATIVE); COLOR,URINE AMBER; GLUCOSE, URINE NEGATIVE (NEGATIVE); KETONES,URINE TRACE mg/dL (NEGATIVE); LEUKOCYTE ESTERASE,URINE MODERATE (NEGATIVE); NITRITE,URINE NEGATIVE (NEGATIVE); PROTEIN,URINE 100 mg/dL (NEGATIVE); URINE SPECIFIC GRAVITY 1.014
--- NOTE | 2019-09-30 17:13 | RADIOLOGY REPORT (SQ) ---
EXAM DESCRIPTION: CHEST 2 VIEWS COMPLETED DATE/TIME: 09/30/2019 4:58 pm REASON FOR STUDY: fever COMPARISON: 04/21/2019 EXAM PARAMETERS: NUMBER OF VIEWS: two views TECHNIQUE: Digital Frontal and Lateral radiographic views of the chest acquired. RADIATION DOSE: NA LIMITATIONS: none FINDINGS: LUNGS AND PLEURA: The patient is rotated which limits the examination. No opacities, mas ses or pneumothorax. No pleural effusion. MEDIASTINUM AND HILAR STRUCTURES: No masses or contour abnormalities. HEART AND VASCULAR STRUCTURES: Heart normal size. No evidence for failure. BONES: No acute findings. HARDWARE: Prior anterior median sternotomy wires. OTHER: No other significant finding. IMPRESSION: 1. The patient is rotated which limits examination. No acute findings. TECHNICAL DOCUMENTATION: JOB ID: [id number] [employer]- All Rights Reserved Reading location - IP/workstation name: [email or web address]
[2019-09-30] MEDS ORDERED: CEFTRIAXONE 1 GM/D5W RTU 1 GM/50 ML RTUPB IV ONE (18:37)
[2019-09-30] MEDS ORDERED: ONDANSETRON ODT 4 MG TAB (6 TAB/ER DISP) PO PRN (18:38)
--- NOTE | 2019-09-30 18:51 | ER Document Report ---
ED General - General Chief Complaint: Nausea/Vomiting Stated Complaint: VOMITING/CHILLS/DIAHERRA/COUGH/WEAKNESS Time Seen by Provider: 09/30/19 11:53 Primary Care Provider: [facility] [Primary Care Provider] - Follow up as needed Mode of Arrival: Ambulatory TRAVEL OUTSIDE OF THE [place] IN LAST 30 DAYS: No - HPI Notes: Patient is a 79-year-old male who presents emergency department for evaluation of fever, nausea, vomiting. Evidently he started vomiting last night. He said 4 episodes of nonbloody, nonbilious emesis today. He started with fever as we ll. Normally, per daughter, patient has a fever it is a urinary tract infection. He has a urostomy secondary to treatment for bladder cancer 20 years ago. He is an end-stage renal disease patient, Sunday dialysis. He denies any shortness of breath. He denies any pain of any sort. He had a normal bowel movement 3 days ago, denies any diarrhea. He states he has been taking his medications as prescribed. - Related Data Allergies/Adverse Reactions: ciprofloxacin [From Cipro] Allergy (Verified 01/14/19 18:11) Home Medications: Omeprazole, Cetirizine, Isosorbide, Atorvastatin Past Medical History - General Information source: Patient - Social History Smoking Status: Former Smoker - [id number] smoker Family History: Reviewed & Not Pertinent - No, Malignancy - Bladder cancer, has urostomy. Patient has suicidal ideation: No Patient has homicidal ideation: No - Past Medical History Cardiac Medical History: Reports: Hx Congestive Heart Failure, Hx Coronary Artery Disease, Hx Hypercholesterolemia, Hx Hypertension, Hx Peripheral Vascular Disease Pulmonary Medical History: Reports: Hx COPD - Possible, Hx Pneumonia Neurological Medical History: Denies: Hx Cerebrovascular Accident, Hx Seizures Endocrine Medical History: Denies: Hx Diabetes Mellitus Type 1, Hx Diabetes Mellitus Type 2, Hx Hyperthyroidism, Hx Hypothyroidism Renal/ Medical History: Reports: Hx End Stage Renal Disease - On hemodialysis Sunday and Sunday with Dr. Cespedes.. Denies: Hx Peritoneal Dialysis Malignancy Medical History: Reports Hx Renal (Kidney) Cancer - Bladder and prostate cancer GI Medical History: Denies: Hx Cirrhosis, Hx Crohn's Disease, Hx Hepatitis, Hx Ulcerative Colitis Musculoskeletal Medical History: Denies Hx Fibromyalgia, Reports Hx Gout Skin Medical History: Denies Hx Eczema, Denies Hx Psoriasis Psychiatric Medical History: Denies: Hx Depression Infectious Medical History: Reports: Hx C-Diff - Status post fecal transplant. Denies: Hx Hepatitis Past Surgical History: Reports: Hx Cardiac Catheterization, Hx Cardiac Surgery - CABG, Hx Coronary Artery Bypass Graft, Hx Genitourinary Surgery - urostomy, Hx Orthopedic Surgery - Right hip hemiarthroplasty August 2016, Hx Urinary Tract Surgery - bladder /prostate, Hx Vascular Surgery - AAA repair, Other - Nephrostomy tube placement, creation of ileal conduit, prostatectomy - Immunizations Immunizations up to date: Yes Hx Diphtheria, Pertussis, Tetanus Vaccination: Yes Hx Pneumococcal Vaccination: 04/17/14 Review of Systems - Review of Systems Constitutional: See HPI Respiratory: See HPI Gastrointestinal: See HPI -: Yes All other systems reviewed and negative Physical Exam - Vital signs Vitals: Temp Pulse Resp BP Pulse Ox 102.4 F H 111 H 16 115/60 95 09/30/19 11:52 09/30/19 11:52 09/30/19 11:52 09/30/19 11:52 09/30/19 11:52 - Notes Notes: Patient is a 79-year-old male who appears his stated age in no acute distress. Head is normocephalic and atraumatic, pupils are equal round reactive to light. Oral mucosa is moist. Heart regular rate rhythm, lungs reveal diminished breath sounds with expiratory wheezes throughout. Abdomen is soft. He has a urostomy in place in his right mid abdomen. There is turbid appearing urine noted in the urostomy bag. Extremities without cyanosis or clubbing. Skin is warm and dry. Peripheral pulses are equal. Patient is awake alert, cooperative with examiner. Course - Re-evaluation Re-evalutation: 09/30/19 18:42 Patient presents the emergency department for evaluation. On arrival he is found to be febrile and very mildly tachycardic. He is given IV fluids and Tylenol for his fever. He is given Zofran for his nausea and vomiting. Laboratory investigations failed to reveal any significant leukocytosis. His temperature and heart rate responded well. He is not had any further emesis. Urine was sent for culture. I also sent blood cultures. I did go ahead and give him some ceftriaxone. I will send the patient home on antibiotics. He is to get rechecked at dialysis tomorrow morning. I will send him home with some Zofran. He is to return to the emergency department with worsening or new concerning symptoms of any sort. - Vital Signs Vital signs: Temp Pulse Resp BP Pulse Ox 99.0 F 80 20 117/57 L 97 09/30/19 16:18 09/30/19 16:18 09/30/19 19:02 09/30/19 19:02 09/30/19 19:02 - Laboratory Result Diagrams: 09/30/19 12:20 09/30/19 12:20 Laboratory results interpreted by me: 09/30/19 09/30/19 09/30/19 12:20 12:20 15:03 RBC 4.08 L Hgb 13.0 L RDW 14.1 H Lymph % (Auto) 6.7 L Seg Neutrophils % 86.5 H Carbon Dioxide 31 H BUN 40 H Creatinine 5.05 H Est GFR ( Amer) 13 L Est GFR (MDRD) Non-Af 11 L Glucose 115 H Lipase 347.6 H Urine Protein 100 H Urine Ketones TRACE H Urine Urobilinogen 2.0 H Ur Leukocyte Esterase MODERATE H Urine Ascorbic Acid 20 H Discharge - Discharge Clinical Impression: UTI (urinary tract infection) Condition: Stable Disposition: HOME, SELF-CARE Instructions: Cephalexin ([facility]), Urinary Tract Infection ([facility]) Additional Instructions: Take all the antibiotic as prescribed. Zofran as needed for nausea. If you develop worsening fever, cannot keep antibiotic down, or develop any new concerning symptoms, please return immediately to the emergency department for evaluation. Prescriptions: Cephalexin Monohydrate [Keflex 500 mg Capsule] 500 mg PO QID #20 capsule Ondansetron [Zofran Odt 4 mg Tablet] 1 tab PO Q4H PRN #15 tab.rapdis PRN Reason: For Nausea/Vomiting [facility]errals: [facility] [[facility] Care Provider] - Follow up as needed
[2019-09-30 19:16] VITALS: BP 117/57
--- NOTE | 2019-10-01 14:55 | ER Document Report ---
Doctor's Note Notes: 10/01/19 14:53 I was contacted by the charge nurse to show me the patient's preliminary blood work from yesterday showing a blood culture growing gram-negative rods. I opened the chart up and looked and found the patient had a urinary tract infection and the urine grew 2 different gram-negative rods. I called Dr. Cespedes his bulb packer, and she reported that he was just now starting dialysis. She would have them do a complete dialysis treatment and send the patient back to the emergency room for admission and treatment. She states that he will become uroseptic quite quickly. He did receive 1 g of Rocephin yesterday.
== END 2019-09-30 19:55 | disposition home or self-care (01) ==
LOC: ER 11:21
DX: N39.0 Urinary tract infection, site not specified (principal); R11.2 Nausea with vomiting, unspecified; R68.83 Chills (without fever); R19.7 Diarrhea, unspecified; R53.1 Weakness; I50.9 Heart failure, unspecified; I11.0 Hypertensive heart disease with heart failure; I25.10 Atherosclerotic heart disease of native coronary artery without angina pectoris; E78.00 Pure hypercholesterolemia, unspecified; Z95.1 Presence of aortocoronary bypass graft; Z88.3 Allergy status to other anti-infective agents
CPT/HCPCS: 99284; 96375; 96365; 36415; 87040; 87086; 83605; 83690; 85025; 87077; 87088; 80053; 81001; 87186; 71046; J2405; J7030; J0696; J0131

== ENCOUNTER 2019-10-01 16:16 | Inpatient (IN) | payer OTHER, MEDICARE ==
[2019-10-01 16:51] LABS: ABSOLUTE LYMPHOCYTES (AUTO) 0.5 10^3/uL (0.5-4.7); ABSOLUTE MONOCYTES (AUTO) 0.4 10^3/uL (0.1-1.4); ABSOLUTE NEUT (AUTO) 4.1 10^3/uL (1.7-8.2); BASOPHILS % (AUTO) 0.5 % (0-2); EOSINOPHILS % (AUTO) 0.3 % (0-6); HEMATOCRIT 35.5 % (37.9-51.0); HEMOGLOBIN 11.9 g/dL (13.5-17.0); LYMPHOCYTES % (AUTO) 10.7 % (13-45); MEAN CORPUSCULAR HEMOGLOBIN 31.3 pg (27.0-33.4); MEAN CORPUSCULAR HGB CONC 33.5 g/dL (32.0-36.0); MEAN CORPUSCULAR VOLUME 94 fl (80-97); MONOCYTES % (AUTO) 7.6 % (3-13); PLATELET COUNT 116 10^3/uL (150-450); RED BLOOD COUNT 3.79 10^6/uL (4.35-5.55); RED CELL DISTRIBUTION WIDTH 13.9 % (11.5-14.0); SEGMENTED NEUTROPHILS % (AUTO) 80.9 % (42-78); TOTAL CELLS COUNTED % (AUTO) 100 %; WHITE BLOOD COUNT 5.1 10^3/uL (4.0-10.5)
[2019-10-01 16:59] LABS: INTERNATIONAL RATION (INR) 1.03; PROTHROMBIN TIME 13.5 SEC (11.4-15.4)
[2019-10-01] MEDS ORDERED: CEFEPIME 2 GM/D5W RTU 2 GM/50 ML RTUPB IV ONE (17:15)
[2019-10-01 17:20] LABS: ALBUMIN 3.9 g/dL (3.5-5.0); ALKALINE PHOSPHATASE 92 U/L (38-126); ANION GAP 10 (5-19); ASPARTATE AMINO TRANSFERASE 28 U/L (17-59); BILIRUBIN,DIRECT 0.4 mg/dL (0.0-0.4); BILIRUBIN,TOTAL 0.7 mg/dL (0.2-1.3); BLOOD UREA NITROGEN 17 mg/dL (7-20); CALCIUM 8.3 mg/dL (8.4-10.2); CARBON DIOXIDE 32 mmol/L (22-30); CHLORIDE 99 mmol/L (98-107); GLUCOSE 145 mg/dL (75-110); POTASSIUM 4.1 mmol/L (3.6-5.0); TOTAL PROTEIN 7.5 g/dL (6.3-8.2)
[2019-10-01] MEDS ORDERED: ONDANSETRON 4 MG TAB.RAPDIS PO PRN (17:20)
[2019-10-01] MEDS ORDERED: OXYCODONE-ACETAMINOPHEN 5-325 MG TABLET PO PRN (17:20)
[2019-10-01] MEDS ORDERED: ONDANSETRON HCL INJ/PF 4 MG/2 ML SDV IV PRN (17:20)
--- NOTE | 2019-10-01 17:28 | ER Document Report ---
ED General - General Chief Complaint: Abnormal Lab Results Stated Complaint: URINARY PROBLEMS Time Seen by Provider: 10/01/19 16:29 Notes: Patient is a 79-year-old male who comes in with fever yesterday feeling fatigued. He was confused at dialysis. Gram-negative rods in blood and urine from yesterday. Patient had been given Rocephin yesterday. Received full dialysis today. Got normal saline 600 cc at dialysis. Did not receive any ant ibiotics at dialysis. Patient also with productive cough. He is agreeable to admission. Had been called at dialysis which was completed today and then sent to the emergency department. Dr. Cespedes is aware. TRAVEL OUTSIDE OF THE [place] IN LAST 30 DAYS: No - Related Data Allergies/Adverse Reactions: ciprofloxacin [From Cipro] Allergy (Verified 01/14/19 18:11) Past Medical History - General Information source: Patient - Social History Smoking Status: Unknown if Ever Smoked Family History: Reviewed & Not Pertinent - No, Malignancy - Bladder cancer, has urostomy. Patient has suicidal ideation: No Patient has homicidal ideation: No - Past Medical History Cardiac Medical History: Reports: Hx Congestive Heart Failure, Hx Coronary Artery Disease, Hx Hypercholesterolemia, Hx Hypertension, Hx Peripheral Vascular Disease Pulmonary Medical History: Reports: Hx COPD - Possible, Hx Pneumonia Neurological Medical History: Denies: Hx Cerebrovascular Accident, Hx Seizures Endocrine Medical History: Denies: Hx Diabetes Mellitus Type 1, Hx Diabetes Mellitus Type 2, Hx Hyperthyroidism, Hx Hypothyroidism Renal/ Medical History: Reports: Hx End Stage Renal Disease - On hemodialysis Sunday and Sunday with Dr. Cespedes.. Denies: Hx Peritoneal Dialysis Malignancy Medical History: Reports Hx Renal (Kidney) Cancer - Bladder and prostate cancer GI Medical History: Denies: Hx Cirrhosis, Hx Crohn's Disease, Hx Hepatitis, Hx Ulcerative Colitis Musculoskeletal Medical History: Denies Hx Fibromyalgia, Reports Hx Gout Skin Medical History: Denies Hx Eczema, Denies Hx Psoriasis Psychiatric Medical History: Denies: Hx Depression Infectious Medical History: Reports: Hx C-Diff - Status post fecal transplant. Denies: Hx Hepatitis Past Surgical History: Reports: Hx Cardiac Catheterization, Hx Cardiac Surgery - CABG, Hx Coronary Artery Bypass Graft, Hx Genitourinary Surgery - urostomy, Hx Orthopedic Surgery - Right hip hemiarthroplasty August 2016, Hx Urinary Tract Surgery - bladder /prostate, Hx Vascular Surgery - AAA repair, Other - Nephrostomy tube placement, creation of ileal conduit, prostatectomy - Immunizations Immunizations up to date: Yes Hx Diphtheria, Pertussis, Tetanus Vaccination: Yes Hx Pneumococcal Vaccination: 04/17/14 Review of Systems - Review of Systems Constitutional: Fever -: Yes All other systems reviewed and negative Physical Exam - Vital signs Vitals: Pulse Resp BP Pulse Ox 73 22 H 129/57 H 95 10/01/19 16:27 10/01/19 16:27 10/01/19 16:27 10/01/19 16:27 Interpretation: Normal - General General appearance: Alert In distress: None - Respiratory Respiratory status: No respiratory distress - Cardiovascular Rhythm: Regular - Abdominal Inspection: Normal Tenderness: Nontender - Extremities General upper extremity: Normal inspection, Normal strength General lower extremity: Normal inspection, Normal strength - Neurological Neuro grossly intact: Yes Cognition: Normal Orientation: AAOx4 Marta Coma Scale Eye Opening: Spontaneous [place] Coma Scale Verbal: Confused [place] Coma Scale Motor: Obeys Commands Marta Coma Scale Total: 14 - Psychological Associated symptoms: Normal affect, Normal mood Course - Re-evaluation Re-evalutation: 10/01/19 17:48 Patient discussed with the hospitalist service and continuous dryout operator helper, Dr. Cespedes. Will be admitted. Cefepime given as patient has an allergy to ciprofloxacin. Based on old microbiology, this should cover current infection. Patient will be admitted to the hospital. Agreeable to this plan. Stable at the time of admission. He will be admitted to the [facility]. - Vital Signs Vital signs: Temp Pulse Resp BP Pulse Ox 99.5 F 73 22 H 129/57 H 95 10/01/19 16:42 10/01/19 16:27 10/01/19 16:27 10/01/19 16:27 10/01/19 16:43 - Laboratory Result Diagrams: 10/01/19 16:31 10/01/19 16:31 Laboratory results interpreted by me: 10/01/19 10/01/19 16:31 16:31 RBC 3.79 L Hgb 11.9 L Hct 35.5 L Plt Count 116 L Lymph % (Auto) 10.7 L Seg Neutrophils % 80.9 H Carbon Dioxide 32 H Creatinine 2.70 H Est GFR ( Amer) 28 L Est GFR (MDRD) Non-Af 23 L Glucose 145 H Calcium 8.3 L Discharge - Discharge Clinical Impression: Sepsis Qualifiers: Sepsis type: sepsis due to unspecified organism Sepsis acute organ dysfunction status: unspecified Qualified Code(s): A41.9 - Sepsis, unspecified organism UTI (urinary tract infection) Qualifiers: Urinary tract infection type: site unspecified Hematuria presence: without hematuria Qualified Code(s): N39.0 - Urinary tract infection, site not specified Condition: Stable Disposition: ADMITTED INPATIENT Admitting Provider: Gonzalo (Hospitalist) - Day Unit Admitted: [facility]
[2019-10-01] MEDS ORDERED: MAGNESIUM OXIDE 400 MG TABLET PO ONE ×2 (17:32→20:30)
[2019-10-01] MEDS ORDERED: ISOSORBIDE DINITRATE 20 MG TABLET PO SCH (17:45)
--- NOTE | 2019-10-01 17:57 | RADIOLOGY REPORT (SQ) ---
EXAM DESCRIPTION: CHEST SINGLE VIEW COMPLETED DATE/TIME: 10/01/2019 5:43 pm REASON FOR STUDY: SOB COMPARISON: Chest films 09/16/2018, 09/30/2019 EXAM PARAMETERS: NUMBER OF VIEWS: One view. TECHNIQUE: Single frontal radiographic view of the chest acquired. RADIATION DOSE: NA LIMITATIONS: None. FINDINGS: LUNGS AND PLEURA: Chronic elevation right hemidiaphragm. No focal infiltrates. No pleural effusion or pneumothorax. MEDIASTINUM AND HILAR STRUCTURES: No masses. Contour normal. HEART AND VASCULAR STRUCTURES: Old sternotomy for CABG. Stable mild cardiomegaly BONES: No acute findings. HARDWARE: None in the chest. OTHER: No other significant finding. IMPRESSION: No acute findings TECHNICAL DOCUMENTATION: JOB ID: [id number] 2010 [employer]- All Rights Reserved Reading location - IP/workstation name: [id number]
--- NOTE | 2019-10-01 17:58 | PDOC H&P ---
History of Present Illness Admission Date/PCP: [facility] 10/01/2019 History of Present Illness: TYLOR JIMENEZ is a 79 year old male comes into the emergency room with gram negative rods in his urine and blood. According to the patient and his daughter he was in the emergency room yesterday with fever and malaise. He was given a shot of Rocephin some IV fluids and blood cultures and urine cultures were taken. Prior to this he had had 1 day of fever and vomiting. Today he went to dialysis as he normally does on Sunday and Sunday and was told return to the emergency room for his gram-negative rods in his urine and blood. The history is given by his daughter who is in the room and states that Sunday night he started vomiting he vomited 3 times and was febrile and had chills. Evidently has a history of urinary tract infections. Then came to the emergency room with these complaints on Sunday as listed above. Patient has been on dialysis for 3 to 4 years now, as a result of contrast agent. Patient also has underlying COPD that seems to be worse today Patient now is to be admitted for IV antibiotics and further work-up. Past Medical History Cardiac Medical History: Reports: Congestive Heart Failure, Coronary Artery Disease, Hyperlipidema, Hypertension, Peripheral Vascular Disease Pulmonary Medical History: Reports: Chronic Obstructive Pulmonary Disease (COPD) - Possible, Pneumonia Neurological Medical History: Denies: Seizures Endocrine Medical History: Denies: Diabetes Mellitus Type 1, Diabetes Mellitus Type 2, Hyperthyroidism, Hypothyroidism Renal/ Medical History: Reports: End Stage Renal Disease - On hemodialysis Sunday and Sunday with Dr. Cespedes. 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 Past Surgical History Past Surgical History: Reports: Cardiac Catheterization, Coronary Artery Bypass Graft, Orthopedic Surgery - Right hip hemiarthroplasty August 2016, Vascular Surgery - AAA repair, Other - Nephrostomy tube placement, creation of ileal conduit, prostatectomy Social History Smoking Status: Unknown if Ever Smoked Frequency of Alcohol Use: None Hx Recreational Drug Use: No Drugs: None Hx Prescription Drug Abuse: No - Advance Directive Resuscitation Status: Do Not Intubate Family History Family History: Reviewed & Not Pertinent - No, Malignancy - Bladder cancer, has urostomy. Parental Family History Reviewed: No Children Family History Reviewed: No Sibling(s) Family History Reviewed.: No Medication/Allergy Home Medications: Calcium Carbonate [Tums Chewable 500 mg Tab.chew] 500 mg PO DAILY 04/17/18 Folic Acid/Vitamin B Comp W-C [Nephrocaps Multiple Vitamin Capsule] 1 cap PO QHS 04/17/18 Magnesium Oxide [Mag-Ox 400 mg Tablet] 400 mg PO DAILY 04/17/18 Omeprazole 20 mg PO DAILY 04/17/18 Sodium Bicarbonate [Sodium Bicarbonate 650 mg Tablet] 650 mg PO Q12 04/17/18 Aspirin [Ecotrin 81 mg EC Tablet] 81 mg PO QHS tabec 09/17/18 Isosorbide Dinitrate [Isordil Titradose 20 mg Tablet] 20 mg PO Q12 01/15/19 Cetirizine HCl [Zyrtec 10 mg Tablet] 1 tab PO DAILY 04/22/19 Atorvastatin Calcium [Lipitor 20 mg Tablet] 20 mg PO QHS tablet 04/29/19 Calcitriol [Rocaltrol 0.25 mcg Capsule] 0.25 mcg PO DAILY 10/01/19 Colchicine [Colcrys 0.6 mg Tablet] 0.6 mg PO DAILYP PRN 10/01/19 Midodrine HCl [Proamatine 5 mg Tablet] 5 mg PO MOWEFR@1000 10/01/19 Saccharomyces Boulardii [Probiotic] 1 cap PO DAILY 10/01/19 Allergies/Adverse Reactions: ciprofloxacin [From Cipro] Allergy (Verified 01/14/19 18:11) Review of Systems Constitutional: PRESENT: chills, fever(s) Cardiovascular: ABSENT: chest pain, dyspnea on exertion, edema, orthropnea, palpitations Respiratory: ABSENT: cough, hemoptysis Gastrointestinal: PRESENT: vomiting Neurological: ABSENT: abnormal gait, abnormal speech, confusion, dizziness, focal weakness, syncope Psychiatric: ABSENT: anxiety, depression, homidical ideation, suicidal ideation Physical Exam Vital Signs: Temp Pulse Resp BP Pulse Ox 99.5 F 73 22 H 129/57 H 95 10/01/19 16:42 10/01/19 16:27 10/01/19 16:27 10/01/19 16:27 10/01/19 16:43 Intake & Output 09/30/19 10/01/19 10/02/19 06:59 06:59 06:59 Weight 84.8 kg General appearance: PRESENT: mild distress, other - Patient has audible wheezing with his respirations heard without stethoscope Respiratory exam: PRESENT: clear to auscultation jenni, rhonchi, wheezes. ABSENT: rales Cardiovascular exam: PRESENT: RRR. ABSENT: diastolic murmur, rubs, systolic murmur Neurological exam: PRESENT: alert, awake, oriented to person, oriented to place, oriented to time, oriented to situation, CN II-XII grossly intact. ABSENT: motor sensory deficit Psychiatric exam: PRESENT: appropriate affect, normal mood. ABSENT: homicidal ideation, suicidal ideation Results Laboratory Results: 10/01/19 16:31 10/01/19 16:31 10/01/19 10/01/19 10/01/19 16:31 16:31 16:31 WBC 5.1 RBC 3.79 L Hgb 11.9 L Hct 35.5 L MCV 94 MCH 31.3 MCHC 33.5 RDW 13.9 Plt Count 116 L Seg Neutrophils % 80.9 H Sodium 141.4 Potassium 4.1 Chloride 99 Carbon Dioxide 32 H Anion Gap 10 BUN 17 Creatinine 2.70 H Est GFR ( Amer) 28 L Glucose 145 H Lactic Acid 2.0 Calcium 8.3 L Total Bilirubin 0.7 AST 28 Alkaline Phosphatase 92 Total Protein 7.5 Albumin 3.9 Assessment and Plan - Diagnosis (1) Sepsis Is this a current diagnosis for this admission?: Yes (2) UTI (urinary tract infection) Is this a current diagnosis for this admission?: Yes (3) COPD exacerbation Is this a current diagnosis for this admission?: Yes (4) DNI (do not intubate) Is this a current diagnosis for this admission?: Yes (5) End-stage renal disease on hemodialysis Is this a current diagnosis for this admission?: Yes - Plan Summary Summary: Patient will be admitted for IV antibiotics, hemodialysis on Sunday, and further work-up concerning his Gram negative bacteria. Chest x-ray and labs are pending Patient appears to be medically stable. I did talk to the patient and his daughter about CODE STATUS and about the seriousness of this infection - Time Time Spent with patient: 35 or more minutes
[2019-10-01 18:19] LABS: A TYPE INFLUENZA AG NEGATIVE (NEGATIVE); B INFLUENZA AG NEGATIVE (NEGATIVE)
[2019-10-01 19:00] LABS: VENOUS BLOOD HCO3 31.4 mmol/L (20-32); VENOUS BLOOD PH 7.32 (7.30-7.42)
[2019-10-01] MEDS: SODIUM BICARBONATE 650 MG TABLET PO SCH (20:16)
[2019-10-01] MEDS: IPRATROPIUM/ALBUTEROL 0.5-2.5 MG/3 ML AMPUL NEB PRN (20:55)
[2019-10-01] MEDS: ACETAMINOPHEN 325 MG TABLET PO PRN (21:10)
[2019-10-01] MEDS: ATORVASTATIN CALCIUM 20 MG TABLET PO SCH (21:10)
[2019-10-01] MEDS: NORMAL SALINE 1000 ML 1,000 ML IV PRN (21:11)
[2019-10-01] MEDS: HEPARIN SOD (PORCINE) 5,000 UNIT/ML 1 ML VIAL SUBCUT SCH (21:11)
[2019-10-01] MEDS ORDERED: CEFEPIME 2 GM/D5W RTU 2 GM/50 ML RTUPB IV SCH (22:00)
[2019-10-01] MEDS: ISOSORBIDE DINITRATE 20 MG TABLET PO SCH (22:14)
[2019-10-02] MEDS ORDERED: CEFEPIME INJ 2 GM VIAL ONE (05:20)
[2019-10-02] MEDS: HEPARIN SOD (PORCINE) 5,000 UNIT/ML 1 ML VIAL SUBCUT SCH ×3 (05:35→21:54)
[2019-10-02] MEDS: SODIUM BICARBONATE 650 MG TABLET PO SCH ×2 (05:35→17:14)
[2019-10-02] MEDS ORDERED: CEFEPIME 2 GM/D5W RTU 2 GM/50 ML RTUPB IV SCH (06:00)
[2019-10-02 06:39] LABS: ANION GAP 10 (5-19); BLOOD UREA NITROGEN 28 mg/dL (7-20); CALCIUM 7.6 mg/dL (8.4-10.2); CARBON DIOXIDE 28 mmol/L (22-30); CHLORIDE 103 mmol/L (98-107); GLUCOSE 101 mg/dL (75-110); PHOSPHORUS 3.9 mg/dL (2.5-4.5); POTASSIUM 4.8 mmol/L (3.6-5.0)
[2019-10-02 06:41] LABS: HEMATOCRIT 31.4 % (37.9-51.0); HEMOGLOBIN 10.6 g/dL (13.5-17.0); MEAN CORPUSCULAR HEMOGLOBIN 31.5 pg (27.0-33.4); MEAN CORPUSCULAR VOLUME 93 fl (80-97); PLATELET COUNT 104 10^3/uL (150-450); RED BLOOD COUNT 3.38 10^6/uL (4.35-5.55); RED CELL DISTRIBUTION WIDTH 14.1 % (11.5-14.0); WHITE BLOOD COUNT 4.6 10^3/uL (4.0-10.5)
[2019-10-02 07:16] LABS: ABSOLUTE LYMPHOCYTES# (MANUAL) 1.2 10^3/uL (0.5-4.7); ABSOLUTE MONOCYTES # (MANUAL) 0.3 10^3/uL (0.1-1.4); BASOPHILS % (MANUAL) 1 % (0-2); EOSINOPHILS % (MANUAL) 0 % (0-6); LYMPHOCYTES % (MANUAL) 26 % (13-45); MONOCYTES % (MANUAL) 7 % (3-13); SEGMENTED NEUTROPHILS % (MAN) 66 % (42-78); TOTAL CELLS COUNTED 100
[2019-10-02 07:17] LABS: ANISOCYTOSIS SLIGHT; OVALOCYTES SLIGHT
[2019-10-02 07:18] LABS: PLATELET COMMENT DECREASED
[2019-10-02] MEDS: ASPIRIN 81 MG TABLET, ENT COATED PO SCH (09:38)
[2019-10-02] MEDS: DOCUSATE SODIUM 100 MG CAPSULE PO SCH (09:39)
[2019-10-02] MEDS: ISOSORBIDE DINITRATE 20 MG TABLET PO SCH ×2 (09:40→21:41)
[2019-10-02] MEDS ORDERED: ONDANSETRON HCL INJ/PF 4 MG/2 ML SDV IV PRN (11:00)
[2019-10-02] MEDS ORDERED: ONDANSETRON 4 MG TAB.RAPDIS PO PRN (11:00)
--- NOTE | 2019-10-02 11:46 | PDOC PROGRESS REPORT ---
Subjective Progress Note for:: 10/02/19 Subjective:: Patient states that he feels okay. He is not short of breath. He is on room air. He is afebrile this morning. Reason For Visit: SEPSIS,UTI(URINARY TRACT INFECTION) Physical Exam Vital Signs: Temp Pulse Resp BP Pulse Ox 98.8 F 79 16 135/60 H 94 10/02/19 07:16 10/02/19 09:26 10/02/19 09:26 10/02/19 07:16 10/02/19 09:26 Intake & Output 10/01/19 10/02/19 10/03/19 06:59 06:59 06:59 Intake Total 160 Output Total 80 Balance 80 Weight 82.3 kg General appearance: PRESENT: no acute distress, cooperative, well-developed Head exam: PRESENT: atraumatic, normocephalic Eye exam: PRESENT: other - Bilateral proptosis Ear exam: PRESENT: normal external ear exam. ABSENT: bleeding, drainage Mouth exam: PRESENT: moist, tongue midline Respiratory exam: PRESENT: symmetrical, unlabored, wheezes - Sporadic expiratory wheezes, other - Congested breath sounds. ABSENT: accessory muscle use, prolonged expiratory phas, rales, rhonchi, tachypnea Cardiovascular exam: PRESENT: RRR, +S1, +S2. ABSENT: diastolic murmur, systolic murmur GI/Abdominal exam: PRESENT: normal bowel sounds, soft. ABSENT: distended, guarding, mass, tenderness Rectal exam: PRESENT: deferred Gentrourinary exam: PRESENT: other - Urostomy Extremities exam: ABSENT: joint swelling, pedal edema Musculoskeletal exam: PRESENT: ambulatory, full ROM, normal inspection. ABSENT: deformity, tenderness Neurological exam: PRESENT: alert, awake, oriented to person, oriented to place, oriented to time, oriented to situation, CN II-XII grossly intact Psychiatric exam: PRESENT: flat affect. ABSENT: agitated, anxious Focused psych exam: ABSENT: delusional, restlessness Skin exam: PRESENT: dry, normal color, warm. ABSENT: rash Results Laboratory Results: 10/02/19 05:48 10/02/19 05:48 10/01/19 10/01/19 10/01/19 16:31 16:31 16:31 WBC 5.1 RBC 3.79 L Hgb 11.9 L Hct 35.5 L MCV 94 MCH 31.3 MCHC 33.5 RDW 13.9 Plt Count 116 L Seg Neutrophils % 80.9 H VBG pH VBG pCO2 VBG HCO3 VBG Base Excess Sodium 141.4 Potassium 4.1 Chloride 99 Carbon Dioxide 32 H Anion Gap 10 BUN 17 Creatinine 2.70 H Est GFR ( Amer) 28 L Glucose 145 H Lactic Acid 2.0 Calcium 8.3 L Phosphorus Magnesium Total Bilirubin 0.7 AST 28 Alkaline Phosphatase 92 Total Protein 7.5 Albumin 3.9 10/01/19 10/01/19 10/01/19 18:33 18:33 22:48 WBC RBC Hgb Hct MCV MCH MCHC RDW Plt Count Seg Neutrophils % VBG pH 7.32 VBG pCO2 63.0 VBG HCO3 31.4 VBG Base Excess 3.0 Sodium Potassium Chloride Carbon Dioxide Anion Gap BUN Creatinine Est GFR ( Amer) Glucose Lactic Acid 2.2 H 0.9 Calcium Phosphorus Magnesium Total Bilirubin AST Alkaline Phosphatase Total Protein Albumin 10/02/19 10/02/19 05:48 05:48 WBC 4.6 RBC 3.38 L Hgb 10.6 L Hct 31.4 L MCV 93 MCH 31.5 MCHC 34.0 RDW 14.1 H Plt Count 104 L Seg Neutrophils % Not Reportable VBG pH VBG pCO2 VBG HCO3 VBG Base Excess Sodium 140.8 Potassium 4.8 Chloride 103 Carbon Dioxide 28 Anion Gap 10 BUN 28 H Creatinine 3.69 H Est GFR ( Amer) 19 L Glucose 101 Lactic Acid Calcium 7.6 L Phosphorus 3.9 Magnesium 1.8 Total Bilirubin AST Alkaline Phosphatase Total Protein Albumin 10/01/19 18:33 NT-Pro-B Natriuret Pep 5130 H Impressions: Chest X-Ray 10/01/19 00:00 IMPRESSION: No acute findings Assessment and Plan - Diagnosis (1) Bacteremia due to Klebsiella pneumoniae Is this a current diagnosis for this admission?: Yes Plan: 10/02/2019 Cultures were obtained at the end of his most recent hospitalization. Only 1 set of blood cultures was drawn and it was positive. So far blood cultures drawn yesterday are negative. Continue antibiotic therapy with cefepime. (2) Klebsiella cystitis Is this a current diagnosis for this admission?: Yes Plan: 10/02/2019 There were 2 gram-negative bacilli isolates and gram-positive cocci on the urine culture from September 29. They have isolated Klebsiella pneumonia with sensitivities. There is a second gram-negative bacillus which should be sensitive to cefepime as well. The gram-positive coccus in chains may be an enterococcus or a group B strep. Cefepime does not have adequate coverage for these organisms. I spoke with pharmacy and I am going to add ampicillin 1 g IV every 12, with pharmacy to adjust for hemodialysis schedule, to cover any strep organisms in the urine. (3) Acute UTI (urinary tract infection) Is this a current diagnosis for this admission?: Yes Plan: 10/02/2019 In addition to the gram-negative bacilli and Streptococcus was isolated from the urine. I will add ampicillin to the antibiotic regimen and await final identification and sensitivities. (4) COPD (chronic obstructive pulmonary disease) Qualifiers: COPD type: unspecified COPD Qualified Code(s): J44.9 - Chronic obstructive pulmonary disease, unspecified Is this a current diagnosis for this admission?: Yes Plan: 10/02/2019 The patient is not on any inhaler regimen at home. He has as needed nebulizers available. (5) End-stage renal disease on hemodialysis Is this a current diagnosis for this admission?: Yes Plan: 10/02/2019 Dr. Cespedes has seen the patient. He is due for hemodialysis tomorrow. (6) Sepsis Qualifiers: Sepsis type: sepsis due to unspecified organism Sepsis acute organ dysfunction status: without acute organ dysfunction Qualified Code(s): A41.9 - Sepsis, unspecified organism Is this a current diagnosis for this admission?: Yes Plan: 10/02/2019 From September 29 the patient had Klebsiella in his blood culture as well as in his urine culture. There were several other organisms in his urine culture. He is currently on cefepime which should be effective. Blood cultures drawn on September 30 are negative so far. Blood pressures are stable. The patient occasionally has a low-grade temperature. He is not tachycardic. His lactic acid has normalized. His end-stage kidney disease requiring hemodialysis is stable. The re are no elevated liver enzymes. The sepsis appears to have resolved with antibiotic therapy. (7) DNI (do not intubate) Is this a current diagnosis for this admission?: Yes Plan: 10/02/2019 Per the patient's wish - Plan Summary Summary: Patient will be admitted for IV antibiotics, hemodialysis on Sunday, and further work-up concerning his Gram negative bacteria. Chest x-ray and labs are pending Patient appears to be medically stable. I did talk to the patient and his daughter about CODE STATUS and about the seriousness of this infection - Time Time Spent with patient: 25-34 minutes Medications reviewed and adjusted accordingly: Yes
[2019-10-02] MEDS: IPRATROPIUM/ALBUTEROL 0.5-2.5 MG/3 ML AMPUL NEB PRN ×2 (13:52→20:01)
--- NOTE | 2019-10-02 14:08 | RADIOLOGY REPORT (SQ) ---
EXAM DESCRIPTION: CHEST SINGLE VIEW COMPLETED DATE/TIME: 10/02/2019 1:47 pm REASON FOR STUDY: Increased wheezing and hypoxia COMPARISON: 10/01/2019 EXAM PARAMETERS: NUMBER OF VIEWS: One view. TECHNIQUE: Single frontal radiographic view of the chest acquired. RADIATION DOSE: NA LIMITATIONS: None. FINDINGS: LUNGS AND PLEURA: Chronic elevation right diaphragm. Chronic interstitial changes. No co nsolidation. No effusions. MEDIASTINUM AND HILAR STRUCTURES: No masses. Contour normal. HEART AND VASCULAR STRUCTURES: Stable heart size. Normal vasculature. BONES: No acute findings. HARDWARE: CABG. OTHER: No other significant finding. IMPRESSION: NO ACUTE RADIOGRAPHIC FINDING IN THE CHEST. TECHNICAL DOCUMENTATION: JOB ID: [id number] 2010 [employer]- All Rights Reserved Reading location - IP/workstation name: [email or web address]
--- NOTE | 2019-10-02 15:53 | EKG REPORT ---
SEVERITY:- ABNORMAL ECG - SINUS RHYTHM FIRST DEGREE AV BLOCK : Confirmed by: Marcy Dunham MD 02-Oct-2019 15:52:38
[2019-10-02] MEDS: CEFEPIME 1 GM/D5W RTU 1 GM/50 ML RTUPB IV SCH (17:14)
[2019-10-02] MEDS: NORMAL SALINE 1000 ML 1,000 ML IV PRN (17:14)
[2019-10-02] MEDS ORDERED: CEFEPIME HCL 2 GM in DEXTROSE 5%-WATER 50 ML IV SCH (18:00)
[2019-10-02] MEDS ORDERED: PHARMACY COMMUNICATION ORDER MC NR (19:00)
[2019-10-02] MEDS ORDERED: AMPICILLIN SODIUM IV SCH (19:00)
[2019-10-02] MEDS ORDERED: NORMAL SALINE IV SCH (19:00)
[2019-10-02] MEDS ORDERED: AMPICILLIN SODIUM 1 GM in NORMAL SALINE 50 ML IV ONE (20:00)
[2019-10-02] MEDS: ATORVASTATIN CALCIUM 20 MG TABLET PO SCH (21:42)
[2019-10-02] MEDS: ACETAMINOPHEN 325 MG TABLET PO PRN (21:42)
[2019-10-02] MEDS: VITAMIN B COMPLEX TABLET PO SCH (21:42)
[2019-10-02] MEDS ORDERED: [UNRECOGNIZED DRUG - OTHER] PO SCH (22:00)
[2019-10-02] MEDS ORDERED: VITAMIN B COMP W C PO SCH (22:00)
[2019-10-02] MEDS ORDERED: FOLIC ACID PO SCH (22:00)
--- NOTE | 2019-10-02 22:48 | PDOC CONSULTATION ---
Consultation Consult Date: 10/02/19 Provider Consulted: ISIDORO TOUSSAINT Consult reason:: ESRD requiring HD History of Present Illness Admission Date/PCP: 10/01/19 17:30 [facility] History of Present Illness: TYLOR JIMENEZ is a pleasant 79-year-old gentleman known to me with history of ESRD on maintenance hemodialysis on MWF, previous history of urosepsis requiring hospitalizations, history of cystectomy with ileal conduit and with urostomy due to history of bladder cancer, COPD, and coronary artery disease who was admitted yesterday secondary to gram-negative bacteremia and urinary tract infection. History is mostly obtained from records since the patient is unable to give much history. Patient was in the emergency room on September 29 because of fever, nausea and vomiting. A urine culture and blood cultures were done. He was given ceftriaxone intravenously and was discharged home with Keflex. Yesterday the patient went to [facility] for his routine hemodialysis and was found to be relatively hypotensive with systolic blood pressure on the upper 80s to 90s. ER provider, Dr. Macario also called me and informed me that the patient has positive blood culture with Klebsiella pneumonia and positive urine culture with Klebsiella pneumoniae and a second gram-negative iraj and gram-positive cocci in chains. Historically the patient is very prone to go into urosepsis with episodes of his urinary tract infection and usually require hospitalizations for this. As a patient was hypotensive in dialysis, told Dr. Brizuela that it is best for him to be admitted to the hospital. Patient completed his hemodialysis treatment yesterday at [facility] requiring 600 mL of IV fluids to maintain his blood pressure. I instructed our dialysis nurse to send the patient back to the emergency room after completing dialysis. When he arrived at the emergency room he was evaluated by Dr. Marquis who again called me about the patient. Patient was then subsequently admitted. Patient was given 2 g of IV cefepime in the emergency room. This morning I found out that the patient was admitted for isolation for COVID-9 suspect. Nothing was documented in his records from the emergency room why he was tested for influenza and COVID-19. He had negative influenza A and influenza B. I saw him in isolation room. He was resting and lying down comfortably in his bed. He does not appear to be in distress at all. He said he has a little bit of a cough but nonproductive. He has no history of travel. Otherwise he does not have any other complaints. Past Medical History Cardiac Medical History: Reports: Coronary Artery Disease, Hyperlipidemia, Hypertension-primary, Peripheral Vascular Disease Pulmonary Medical History: Reports: Chronic Obstructive Pulmonary Disease (COPD) - Possible, Pneumonia Renal/ Medical History: Reports: End Stage Renal Disease - On hemodialysis Sunday and Sunday with Dr. 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 Hematology Medical History: Reports Anemia of Chronic Kidney Disease Past Surgical History Past Surgical History: Reports: Cardiac Catheterization, Coronary Artery Bypass Graft, Cystectomy - With urostomy bag in the right lower quadrant, Dialysis Access Surgery AVF, Orthopedic Surgery - Right hip hemiarthroplasty August 2016, Vascular Surgery - AAA repair, Other - Nephrostomy tube placement, creation of ileal conduit, prostatectomy Social History Information Source: [facility] Records Smoking Status: Unknown if Ever Smoked Electronic Cigarette use?: No Frequency of Alcohol Use: None Hx Recreational Drug Use: No Drugs: None Hx Prescription Drug Abuse: No - Advance Directive Resuscitation Status: Do Not Intubate Family History Family History: Reviewed & Not Pertinent Parental Family History Reviewed: Yes Children Family History Reviewed: Yes Sibling(s) Family History Reviewed.: Yes Medication/Allergy Home Medications: Calcium Carbonate [Tums Chewable 500 mg Tab.chew] 500 mg PO DAILY 04/17/18 Folic Acid/Vitamin B Comp W-C [Nephrocaps Multiple Vitamin Capsule] 1 cap PO QHS 04/17/18 Magnesium Oxide [Mag-Ox 400 mg Tablet] 400 mg PO DAILY 04/17/18 Omeprazole 20 mg PO DAILY 04/17/18 Sodium Bicarbonate [Sodium Bicarbonate 650 mg Tablet] 650 mg PO Q12 04/17/18 Aspirin [Ecotrin 81 mg EC Tablet] 81 mg PO QHS tabec 09/17/18 Isosorbide Dinitrate [Isordil Titradose 20 mg Tablet] 20 mg PO Q12 01/15/19 Cetirizine HCl [Zyrtec 10 mg Tablet] 1 tab PO DAILY 04/22/19 Atorvastatin Calcium [Lipitor 20 mg Tablet] 20 mg PO QHS tablet 04/29/19 Calcitriol [Rocaltrol 0.25 mcg Capsule] 0.25 mcg PO DAILY 10/01/19 Colchicine [Colcrys 0.6 mg Tablet] 0.6 mg PO DAILYP PRN 10/01/19 Midodrine HCl [Proamatine 5 mg Tablet] 5 mg PO MOWEFR@1000 10/01/19 Saccharomyces Boulardii [Probiotic] 1 cap PO DAILY 10/01/19 Allergies/Adverse Reactions: ciprofloxacin [From Cipro] Allergy (Verified 01/14/19 18:11) Review of Systems All systems: reviewed and no additional remarkable complaints except as stated Review of Systems: Constitutional: ABSENT: chills, fatigue, headache(s), weight gain, weight loss; admits fever and malaise Eyes: ABSENT: visual disturbances Ears: ABSENT: hearing changes Cardiovascular: ABSENT: chest pain, dyspnea on exertion, edema, orthropnea, palpitations Respiratory: ABSENT: dyspnea, hemoptysis; admits nonproductive cough Gastrointestinal: ABSENT: abdominal pain, constipation, diarrhea, hematemesis, hematochezia; admits nausea, and vomiting Genitourinary: ABSENT: dysuria, hematuria Musculoskeletal: ABSENT: joint swelling Integumentary: ABSENT: rash, wounds Neurological: ABSENT: abnormal gait, abnormal speech, confusion, dizziness, focal weakness, numbness, syncope Psychiatric: ABSENT: anxiety, depression Endocrine: ABSENT: cold intolerance, heat intolerance, polydipsia, polyuria Hematologic/Lymphatic: ABSENT: easy bleeding, easy bruising, lymphadenopathy Physical Exam Vital Signs: Temp Pulse Resp BP Pulse Ox 99.0 F 71 18 118/95 H 96 10/02/19 19:21 10/02/19 20:01 10/02/19 20:01 10/02/19 19:21 10/02/19 20:01 Intake & Output 10/01/19 10/02/19 10/03/19 06:59 06:59 06:59 Intake Total 160 1476 Output Total 80 100 Balance 80 1376 Weight 82.3 kg 82.3 kg Exam: General appearance: No acute distress, cooperative, well-developed, well- nourished Head exam: PRESENT: atraumatic, normocephalic; hard of hearing Eye exam: PRESENT: Conjunctiva slightly pale, EOMI, PERRLA. ABSENT: conjunctival injection, scleral icterus Mouth exam: PRESENT: moist, neck supple, tongue midline Neck exam: PRESENT: full ROM. ABSENT: carotid bruit, JVD, lymphadenopathy, thyromegaly Respiratory exam: PRESENT: Diminished to auscultation bilaterally. Diffuse anterior wheezes ABSENT: rales, rhonchi, stridor Cardiovascular exam: PRESENT: RRR, +S1, +S2. ABSENT: systolic murmur Pulses: PRESENT: normal radial pulses, normal dorsalis pedis pulses GI/Abdominal exam: PRESENT: normal bowel sounds, soft. Urostomy bag in place ABSENT: guarding, mass, tenderness Rectal exam: Deferred Extremities exam: PRESENT: full ROM. ABSENT: calf tenderness, pedal edema Musculoskeletal: PRESENT: full ROM. ABSENT: deformity Neurological exam: PRESENT: alert, Awake, Oriented to person, Oriented to place, Oriented to time, reflexes normal, CN II-XII grossly intact. ABSENT: motor sensory deficit Psychiatric exam: PRESENT: appropriate affect, normal mood. ABSENT: homicidal ideation, suicidal ideation Skin exam: PRESENT: intact, dry, warm. ABSENT: rash Results Laboratory Results: 10/02/19 05:48 10/02/19 05:48 10/01/19 10/02/19 10/02/19 22:48 05:48 05:48 WBC 4.6 RBC 3.38 L Hgb 10.6 L Hct 31.4 L MCV 93 MCH 31.5 MCHC 34.0 RDW 14.1 H Plt Count 104 L Seg Neutrophils % Not Reportable Sodium 140.8 Potassium 4.8 Chloride 103 Carbon Dioxide 28 Anion Gap 10 BUN 28 H Creatinine 3.69 H Est GFR ( Amer) 19 L Glucose 101 Lactic Acid 0.9 Calcium 7.6 L Phosphorus 3.9 Magnesium 1.8 10/01/19 18:33 NT-Pro-B Natriuret Pep 5130 H Impressions: Chest X-Ray 10/02/19 00:00 IMPRESSION: NO ACUTE RADIOGRAPHIC FINDING IN THE CHEST. Assessment & Plan - Diagnosis (1) Bacteremia due to Klebsiella pneumoniae Is this a current diagnosis for this admission?: Yes Plan: Patient has been started on IV cefepime. (2) Acute UTI (urinary tract infection) Is this a current diagnosis for this admission?: Yes Plan: Secondary to Klebsiella pneumoniae, a second gram-negative iraj; and a gram- positive cocci in chains. Patient was started on IV ampicillin by Dr. Sánchez today in addition to his IV cefepime. (3) Sepsis Qualifiers: Sepsis type: sepsis due to unspecified organism Sepsis acute organ dysfunction status: without acute organ dysfunction Qualified Code(s): A41.9 - Sepsis, unspecified organism Is this a current diagnosis for this admission?: Yes Plan: Due to Klebsiella bacteremia secondary to cystitis. Patient presented with fever and hypotension yesterday on dialysis. (4) End-stage renal disease on hemodialysis Is this a current diagnosis for this admission?: Yes Plan: We will continue to do hemodialysis with the patient is here in the hospital. Next dialysis will be tomorrow. Patient will need to be done in isolation while waiting for the COVID- 19 testing. (5) Anemia in chronic kidney disease (CKD) Qualifiers: Chronic kidney disease stage: on chronic dialysis Qualified Code(s): N18.6 - End stage renal disease; D63.1 - Anemia in chronic kidney disease; D63.1 - Anemia in chronic kidney disease; Z99.2 - Dependence on renal dialysis; Z99.2 - Dependence on renal dialysis; Z99.2 - Dependence on renal dialysis; Z99.2 - Dependence on renal dialysis Is this a current diagnosis for this admission?: Yes Plan: Retacrit as needed during dialysis treatment. (6) Cough with fever Is this a current diagnosis for this admission?: Yes Plan: He tested negative for influenza a and B. COVID- 19 testing pending. Patient is currently in isolation. (7) COPD (chronic obstructive pulmonary disease) Qualifiers: COPD type: unspecified COPD Qualified Code(s): J44.9 - Chronic obstructive pulmonary disease, unspecified Is this a current diagnosis for this admission?: Yes Plan: Possibly has some mild exacerbation. (8) Hypocalcemia Is this a current diagnosis for this admission?: Yes Plan: On calcium carbonate and calcitriol. - Notes Notes: Thank you very much for this consultation. - Time Time Spent: 50 to 70 Minutes
[2019-10-03] MEDS ORDERED: NORMAL SALINE 1000 ML 1,000 ML IV PRN (05:00)
[2019-10-03] MEDS: CEFEPIME 1 GM/D5W RTU 1 GM/50 ML RTUPB IV SCH ×2 (06:09→17:11)
[2019-10-03] MEDS: SODIUM BICARBONATE 650 MG TABLET PO SCH ×2 (06:09→17:11)
[2019-10-03] MEDS: HEPARIN SOD (PORCINE) 5,000 UNIT/ML 1 ML VIAL SUBCUT SCH ×3 (06:15→21:02)
[2019-10-03 07:32] LABS: ABSOLUTE EOSINOPHILS # (AUTO) 0.1 10^3/uL (0.0-0.6); ABSOLUTE LYMPHOCYTES (AUTO) 1.3 10^3/uL (0.5-4.7); ABSOLUTE MONOCYTES (AUTO) 0.6 10^3/uL (0.1-1.4); ABSOLUTE NEUT (AUTO) 3.1 10^3/uL (1.7-8.2); BASOPHILS % (AUTO) 0.7 % (0-2); EOSINOPHILS % (AUTO) 2.6 % (0-6); HEMATOCRIT 30.8 % (37.9-51.0); HEMOGLOBIN 10.4 g/dL (13.5-17.0); LYMPHOCYTES % (AUTO) 24.5 % (13-45); MEAN CORPUSCULAR HEMOGLOBIN 31.8 pg (27.0-33.4); MEAN CORPUSCULAR HGB CONC 33.9 g/dL (32.0-36.0); MEAN CORPUSCULAR VOLUME 94 fl (80-97); MONOCYTES % (AUTO) 12.3 % (3-13); PLATELET COUNT 106 10^3/uL (150-450); RED BLOOD COUNT 3.29 10^6/uL (4.35-5.55); RED CELL DISTRIBUTION WIDTH 14.1 % (11.5-14.0); SEGMENTED NEUTROPHILS % (AUTO) 59.9 % (42-78); TOTAL CELLS COUNTED % (AUTO) 100 %; WHITE BLOOD COUNT 5.2 10^3/uL (4.0-10.5)
[2019-10-03 07:45] LABS: BLOOD UREA NITROGEN 40 mg/dL (7-20); CALCIUM 7.5 mg/dL (8.4-10.2); CHLORIDE 104 mmol/L (98-107); GLUCOSE 89 mg/dL (75-110); POTASSIUM 4.4 mmol/L (3.6-5.0)
[2019-10-03 09:15] LABS: CARBON DIOXIDE 25 mmol/L (22-30)
[2019-10-03 09:16] LABS: ANION GAP 14 (5-19)
[2019-10-03] MEDS: ISOSORBIDE DINITRATE 20 MG TABLET PO SCH ×2 (09:28→21:30)
[2019-10-03] MEDS: ASPIRIN 81 MG TABLET, ENT COATED PO SCH (09:28)
[2019-10-03] MEDS: DOCUSATE SODIUM 100 MG CAPSULE PO SCH (09:28)
[2019-10-03] MEDS: CETIRIZINE 10 MG TABLET PO SCH (09:29)
[2019-10-03] MEDS: PANTOPRAZOLE SODIUM 20 MG TABLET.DR PO SCH (09:29)
[2019-10-03] MEDS: MAGNESIUM OXIDE 400 MG TABLET PO SCH (09:29)
[2019-10-03] MEDS: CALCITRIOL 0.25 MCG CAPSULE PO SCH (09:29)
[2019-10-03] MEDS: MIDODRINE HCL 5 MG TABLET PO SCH (09:29)
[2019-10-03] MEDS: CALCIUM CARBONATE 500 MG TAB.CHEW PO SCH (09:29)
[2019-10-03] MEDS ORDERED: SACCHAROMYCES BOULARDII PO SCH (10:00)
[2019-10-03] MEDS: IPRATROPIUM/ALBUTEROL 0.5-2.5 MG/3 ML AMPUL NEB PRN ×2 (14:11→20:08)
--- NOTE | 2019-10-03 15:34 | PDOC PROGRESS REPORT ---
Subjective Progress Note for:: 10/03/19 Subjective:: Currently on dialysis. Still with a persistent cough. Still requires oxygen supplementation. Reason For Visit: SEPSIS,UTI(URINARY TRACT INFECTION) Physical Exam Vital Signs: Temp Pulse Resp BP Pulse Ox 97.6 F 75 16 126/53 H 96 10/03/19 11:08 10/03/19 14:15 10/03/19 14:15 10/03/19 11:08 10/03/19 14:15 Intake & Output 10/02/19 10/03/19 10/04/19 06:59 06:59 06:59 Intake Total 160 1776 240 Output Total 80 430 Balance 80 1346 240 Weight 82.3 kg 85.1 kg General appearance: PRESENT: cooperative, mild distress, well-developed Head exam: PRESENT: atraumatic, normocephalic Ear exam: PRESENT: normal external ear exam. ABSENT: bleeding, drainage Respiratory exam: PRESENT: prolonged expiratory phas, rhonchi - Very congested breath sounds. Rhonchorous cough., symmetrical, unlabored. ABSENT: clear to auscultation jenni, tachypnea, wheezes Cardiovascular exam: PRESENT: RRR, +S1, +S2 GI/Abdominal exam: PRESENT: normal bowel sounds, soft. ABSENT: distended, tenderness Gentrourinary exam: PRESENT: other - Urostomy dressing is leaking Extremities exam: ABSENT: pedal edema Neurological exam: PRESENT: alert, awake, oriented to person, oriented to place, oriented to time, oriented to situation Psychiatric exam: PRESENT: flat affect. ABSENT: agitated, anxious Focused psych exam: ABSENT: delusional, restlessness Results Laboratory Results: 10/03/19 06:25 10/03/19 06:25 10/03/19 10/03/19 06:25 06:25 WBC 5.2 RBC 3.29 L Hgb 10.4 L Hct 30.8 L MCV 94 MCH 31.8 MCHC 33.9 RDW 14.1 H Plt Count 106 L Seg Neutrophils % 59.9 Sodium 143.4 Potassium 4.4 Chloride 104 Carbon Dioxide 25 Anion Gap 14 BUN 40 H Creatinine 4.72 H Est GFR ( Amer) 15 L Glucose 89 Calcium 7.5 L 10/01/19 18:33 NT-Pro-B Natriuret Pep 5130 H Impressions: Chest X-Ray 10/02/19 00:00 IMPRESSION: NO ACUTE RADIOGRAPHIC FINDING IN THE CHEST. Assessment and Plan - Diagnosis (1) Bacteremia due to Klebsiella pneumoniae Is this a current diagnosis for this admission?: Yes Plan: 10/02/2019 Cultures were obtained at the end of his most recent hospitalization. Only 1 set of blood cultures was drawn and it was positive. So far blood cultures drawn yesterday are negative. Continue antibiotic therapy with cefepime. 10/03/2019 Current blood cultures remain negative. (2) Klebsiella cystitis Is this a current diagnosis for this admission?: Yes Plan: 10/02/2019 There were 2 gram-negative bacilli isolates and gram-positive cocci on the urine culture from September 29. They have isolated Klebsiella pneumonia with sensitivities. There is a second gram-negative bacillus which should be sensitive to cefepime as well. The gram-positive coccus in chains may be an enterococcus or a group B strep. Cefepime does not have adequate coverage for these organisms. I spoke with pharmacy and I am going to add ampicillin 1 g IV every 12, with pharmacy to adjust for hemodialysis schedule, to cover any strep organisms in the urine. 10/03/2019 Still no final identification on the Streptococcus organism. The patient is tolerating ampicillin. The sensitivities for the Klebsiella and E. coli from the urine specimen show widespread sensitivity. I may change the antibiotic therapy to a earlier generation cephalosporin such as cefazolin. (3) Acute UTI (urinary tract infection) Is this a current diagnosis for this admission?: Yes Plan: 10/02/2019 In addition to the gram-negative bacilli and Streptococcus was isolated from the urine. I will add ampicillin to the antibiotic regimen and await final identification and sensitivities. 10/03/2019 As noted above E. coli and Klebsiella were identified. They are fairly sensitive. Consider changing the cephalosporin therapy. Ampicillin added to cover the Streptococcus. (4) COPD (chronic obstructive pulmonary disease) Qualifiers: COPD type: unspecified COPD Qualified Code(s): J44.9 - Chronic obstructive pulmonary disease, unspecified Is this a current diagnosis for this admission?: Yes Plan: 10/02/2019 The patient is not on any inhaler regimen at home. He has as needed nebulizers available. 10/03/2019 The patient still has a need for supplemental oxygen. We will continue current regimen. If there is no improvement we may require a more aggressive regimen. (5) End-stage renal disease on hemodialysis Is this a current diagnosis for this admission?: Yes Plan: 10/02/2019 Dr. Cespedes has seen the patient. He is due for hemodialysis tomorrow. 10/03/2019 The patient is actually undergoing hemodialysis at this time. He appears to be tolerating it without difficulty. No reported issues from the dialysis nurses. (6) Sepsis Qualifiers: Sepsis type: sepsis due to unspecified organism Sepsis acute organ dysfunction status: without acute organ dysfunction Qualified Code(s): A41.9 - Sepsis, unspecified organism Is this a current diagnosis for this admission?: Yes Plan: 10/02/2019 From September 29 the patient had Klebsiella in his blood culture as well as in his urine culture. There were several other organisms in his urine culture. He is currently on cefepime which should be effective. Blood cultures drawn on September 30 are negative so far. Blood pressures are stable. The patient occasionally has a low-grade temperature. He is not tachycardic. His lactic acid has normalized. His end-stage kidney disease requiring hemodialysis is stable. There are no elevated liver enzymes. The sepsis appears to have resolved with antibiotic therapy. 10/03/2019 Resolved (7) DNI (do not intubate) Is this a current diagnosis for this admission?: Yes Plan: 10/02/2019 Per the patient's wish - Plan Summary Summary: Patient will be admitted for IV antibiotics, hemodialysis on Sunday, and further work-up concerning his Gram negative bacteria. Chest x-ray and labs are pending Patient appears to be medically stable. I did talk to the patient and his daughter about CODE STATUS and about the seriousness of this infection - Time Time Spent with patient: 15-24 minutes Medications reviewed and adjusted accordingly: Yes Anticipated discharge: Home
[2019-10-03] MEDS: NORMAL SALINE 1000 ML 1,000 ML IV PRN (17:11)
[2019-10-03] MEDS ORDERED: AMPICILLIN SODIUM 1 GM in NORMAL SALINE 50 ML IV SCH (18:00)
--- NOTE | 2019-10-03 18:51 | PDOC PROGRESS REPORT ---
Subjective Progress Note for:: 10/03/19 Reason For Visit: Patient seen in the hospital today. Is currently isolated because he initially came in with a history of fever but he also had symptoms of UTI and is cultures from blood and urine are positive for Klebsiella with urine also having additional E. coli. Patient currently on IV antibiotics and generally feeling better. He denies any history of chest pain shortness of breath. Patient is in isolation and pending call with 19 testing. Patient was seen currently undergoing dialysis. Dialysis orders were reviewed with the treating dialysis nurse. Labs and medications were reviewed. Physical Exam Vital Signs: Temp Pulse Resp BP Pulse Ox 97.6 F 75 16 126/53 H 96 10/03/19 11:08 10/03/19 14:15 10/03/19 14:15 10/03/19 11:08 10/03/19 14:15 Intake & Output 10/02/19 10/03/19 10/04/19 06:59 06:59 06:59 Intake Total 160 1776 1340 Output Total 80 430 Balance 80 1346 1340 Weight 82.3 kg 85.1 kg General appearance: PRESENT: no acute distress Respiratory exam: PRESENT: clear to auscultation jenni, decreased breath sounds. ABSENT: crackles Cardiovascular exam: PRESENT: +S1, +S2 GI/Abdominal exam: PRESENT: normal bowel sounds, soft. ABSENT: organomegaly, tenderness Extremities exam: PRESENT: pedal edema Neurological exam: PRESENT: alert, awake, oriented to person, oriented to place Psychiatric exam: PRESENT: appropriate affect Results Laboratory Results: 10/03/19 06:25 10/03/19 06:25 10/03/19 10/03/19 06:25 06:25 WBC 5.2 RBC 3.29 L Hgb 10.4 L Hct 30.8 L MCV 94 MCH 31.8 MCHC 33.9 RDW 14.1 H Plt Count 106 L Seg Neutrophils % 59.9 Sodium 143.4 Potassium 4.4 Chloride 104 Carbon Dioxide 25 Anion Gap 14 BUN 40 H Creatinine 4.72 H Est GFR ( Amer) 15 L Glucose 89 Calcium 7.5 L 10/01/19 18:33 NT-Pro-B Natriuret Pep 5130 H Impressions: Chest X-Ray 10/02/19 00:00 IMPRESSION: NO ACUTE RADIOGRAPHIC FINDING IN THE CHEST. Assessment & Plan - Diagnosis (1) Bacteremia due to Klebsiella pneumoniae Is this a current diagnosis for this admission?: Yes Plan: Currently on antibiotics and improving. Management as per hospitalist. (2) Acute UTI (urinary tract infection) Is this a current diagnosis for this admission?: Yes Plan: With Klebsiella and E. coli. On antibiotics and and improving. (3) Anemia in chronic kidney disease (CKD) Qualifiers: Chronic kidney disease stage: on chronic dialysis Qualified Code(s): N18.6 - End stage renal disease; D63.1 - Anemia in chronic kidney disease; D63.1 - Anemia in chronic kidney disease; Z99.2 - Dependence on renal dialysis; Z99.2 - Dependence on renal dialysis; Z99.2 - Dependence on renal dialysis; Z99.2 - Dependence on renal dialysis Is this a current diagnosis for this admission?: Yes Plan: Stable and monitor. Adjust erythropoietin as needed. (4) ESRD (end stage renal disease) on dialysis Plan: Patient seen on dialysis. Vital signs are stable. Dialysis being supervised to ensure safe and smooth procedure. Plan to remove approximately 1-2 L of fluid as tolerated. Dialysis orders were reviewed with the treating dialysis nurse.
[2019-10-03] MEDS: VITAMIN B COMPLEX TABLET PO SCH (21:01)
[2019-10-03] MEDS: ATORVASTATIN CALCIUM 20 MG TABLET PO SCH (21:01)
[2019-10-04] MEDS: SODIUM BICARBONATE 650 MG TABLET PO SCH ×2 (05:14→17:18)
[2019-10-04] MEDS: HEPARIN SOD (PORCINE) 5,000 UNIT/ML 1 ML VIAL SUBCUT SCH ×3 (05:15→21:25)
[2019-10-04] MEDS ORDERED: AMPICILLIN SODIUM 1 GM in NORMAL SALINE 50 ML IV SCH (06:00)
[2019-10-04] MEDS: CEFEPIME 1 GM/D5W RTU 1 GM/50 ML RTUPB IV SCH ×2 (06:05→17:19)
[2019-10-04] MEDS: IPRATROPIUM/ALBUTEROL 0.5-2.5 MG/3 ML AMPUL NEB PRN (08:27)
[2019-10-04] MEDS: PANTOPRAZOLE SODIUM 20 MG TABLET.DR PO SCH (10:56)
[2019-10-04] MEDS: NORMAL SALINE 1000 ML 1,000 ML IV PRN (10:56)
[2019-10-04] MEDS: CALCIUM CARBONATE 500 MG TAB.CHEW PO SCH (10:56)
[2019-10-04] MEDS: ASPIRIN 81 MG TABLET, ENT COATED PO SCH (10:56)
[2019-10-04] MEDS: DOCUSATE SODIUM 100 MG CAPSULE PO SCH (10:56)
[2019-10-04] MEDS: MAGNESIUM OXIDE 400 MG TABLET PO SCH (10:57)
[2019-10-04] MEDS: CALCITRIOL 0.25 MCG CAPSULE PO SCH (10:57)
[2019-10-04] MEDS: CETIRIZINE 10 MG TABLET PO SCH (10:57)
[2019-10-04] MEDS: ISOSORBIDE DINITRATE 20 MG TABLET PO SCH ×2 (10:57→21:36)
[2019-10-04] MEDS ORDERED: IPRATROPIUM/ALBUTEROL 0.5-2.5 MG/3 ML AMPUL NEB PRN (14:49)
[2019-10-04] MEDS ORDERED: GUAIFENESIN/D-METHORPHAN (200-20 MG) SYRUP 10 ML PO PRN (14:51)
--- NOTE | 2019-10-04 14:56 | PDOC PROGRESS REPORT ---
Subjective Progress Note for:: 10/04/19 Subjective:: The patient has a very congested cough. He states he does cough up mucus but swallows it. He still does not quite feel at his baseline with regard to the breathing. Reason For Visit: SEPSIS,UTI(URINARY TRACT INFECTION) Physical Exam Vital Signs: Temp Pulse Resp BP Pulse Ox 98.8 F 93 22 H 110/48 L 92 10/04/19 13:14 10/04/19 13:14 10/04/19 13:14 10/04/19 13:14 10/04/19 13:14 Intake & Output 10/03/19 10/04/19 10/05/19 06:59 06:59 06:59 Intake Total 1776 1732 1050 Output Total 430 2100 Balance 1346 -368 1050 Weight 85.1 kg 80.9 kg General appearance: PRESENT: no acute distress, cooperative, well-developed, other - The nurses report that the patient has been somewhat restless earlier. He tends to pull off his oxygen tubing. At the time of this encounter he was fiddling with the tangled wires from his telemetry leads. Head exam: PRESENT: atraumatic, normocephalic Ear exam: PRESENT: normal external ear exam. ABSENT: bleeding, drainage Mouth exam: PRESENT: moist, tongue midline Respiratory exam: PRESENT: prolonged expiratory phas, symmetrical, unlabored, wheezes - Sporadic expiratory wheezes, other - Very congested breath sounds. ABSENT: accessory muscle use, rales, rhonchi, tachypnea Cardiovascular exam: PRESENT: RRR, +S1, +S2 GI/Abdominal exam: PRESENT: normal bowel sounds, soft. ABSENT: distended, tenderness Rectal exam: PRESENT: deferred Gentrourinary exam: ABSENT: indwelling catheter Extremities exam: ABSENT: pedal edema Musculoskeletal exam: PRESENT: ambulatory, normal inspection. ABSENT: deformity Neurological exam: PRESENT: alert, awake, oriented to person, oriented to place, other - Difficult to know his baseline. At times it seems that he does not fully understand the discussion. He clearly has episodes of restlessness and tends to pull on his telemetry wires as well as his oxygen tubing. Psychiatric exam: PRESENT: flat affect. ABSENT: agitated, anxious Focused psych exam: PRESENT: restlessness. ABSENT: delusional Skin exam: PRESENT: dry, normal color, warm. ABSENT: rash Results Laboratory Results: 10/03/19 06:25 10/03/19 06:25 10/02/19 13:30 Throat Throat Culture - Final NORMAL FELISHA 10/01/19 18:33 NT-Pro-B Natriuret Pep 5130 H Impressions: Chest X-Ray 10/02/19 00:00 IMPRESSION: NO ACUTE RADIOGRAPHIC FINDING IN THE CHEST. Assessment and Plan - Diagnosis (1) Bacteremia due to Klebsiella pneumoniae Is this a current diagnosis for this admission?: Yes Plan: 10/02/2019 Cultures were obtained at the end of his most recent hospitalization. Only 1 set of blood cultures was drawn and it was positive. So far blood cultures drawn yesterday are negative. Continue antibiotic therapy with cefepime. 10/03/2019 Current blood cultures remain negative. 10/04/2019 Blood cultures from current admission remain negative (2) Klebsiella cystitis Is this a current diagnosis for this admission?: Yes Plan: 10/02/2019 There were 2 gram-negative bacilli isolates and gram-positive cocci on the urine culture from September 29. They have isolated Klebsiella pneumonia with sensitivities. There is a second gram-negative bacillus which should be sensitive to cefepime as well. The gram-positive coccus in chains may be an e nterococcus or a group B strep. Cefepime does not have adequate coverage for these organisms. I spoke with pharmacy and I am going to add ampicillin 1 g IV every 12, with pharmacy to adjust for hemodialysis schedule, to cover any strep organisms in the urine. 10/03/2019 Still no final identification on the Streptococcus organism. The patient is tolerating ampicillin. The sensitivities for the Klebsiella and E. coli from the urine specimen show widespread sensitivity. I may change the antibiotic therapy to a earlier generation cephalosporin such as cefazolin. 10/04/2019 Klebsiella and E. coli identified. Awaiting final strep identification. If possible we will try and use 1 antibiotic to cover all organisms. (3) Acute UTI (urinary tract infection) Is this a current diagnosis for this admission?: Yes Plan: 10/02/2019 In addition to the gram-negative bacilli and Streptococcus was isolated from the urine. I will add ampicillin to the antibiotic regimen and await final identification and sensitivities. 10/03/2019 As noted above E. coli and Klebsiella were identified. They are fairly sensitive. Consider changing the cephalosporin therapy. Ampicillin added to cover the Streptococcus. 10/04/2019 As above (4) COPD (chronic obstructive pulmonary disease) Qualifiers: COPD type: unspecified COPD Qualified Code(s): J44.9 - Chronic obstructive pulmonary disease, unspecified Is this a current diagnosis for this admission?: Yes Plan: 10/02/2019 The patient is not on any inhaler regimen at home. He has as needed nebulizers available. 10/03/2019 The patient still has a need for supplemental oxygen. We will continue current regimen. If there is no improvement we may require a more aggressive regimen. 10/04/2019 The patient still sounds very congested. I am going to institute scheduled nebulizer treatments with duo nebs and budesonide. He will also have additional treatments available if needed. Hopefully this will help to clear his lungs. (5) Acute respiratory failure with hypoxia Is this a current diagnosis for this admission?: Yes Plan: 10/04/2019 Secondary to exacerbation of COPD most likely. With his age and comorbidities he has been tested for Covid-19. The results are still pending. He was on 2 L nasal cannula. We did try a window of room air but his saturation was 88% at rest. We will go back to 1 L nasal cannula. We will continue to try and taper his oxygen to off since he does not wear oxygen at home. (6) End-stage renal disease on hemodialysis Is this a current diagnosis for this admission?: Yes Plan: 10/02/2019 Dr. Cespedes has seen the patient. He is due for hemodialysis tomorrow. 10/03/2019 The patient is actually undergoing hemodialysis at this time. He appears to be tolerating it without difficulty. No reported issues from the dialysis nurses. 10/04/2019 Continue hemodialysis on Sunday, Sunday and Sunday (7) Sepsis Qualifiers: Sepsis type: sepsis due to unspecified organism Sepsis acute organ dysfunction status: without acute organ dysfunction Qualified Code(s): A41.9 - Sepsis, unspecified organism Is this a current diagnosis for this admission?: Yes Plan: 10/02/2019 From September 29 the patient had Klebsiella in his blood culture as well as in his urine culture. There were several other organisms in his urine culture. He is currently on cefepime which should be effective. Blood cultures drawn on September 30 are negative so far. Blood pressures are stable. The patient occasionally has a low-grade temperature. He is not tachycardic. His lactic acid has normalized. His end-stage kidney disease requiring hemodialysis is stable. There are no elevated liver enzymes. The sepsis appears to have resolved with antibiotic therapy. 10/03/2019 Resolved (8) DNI (do not intubate) Is this a current diagnosis for this admission?: Yes Plan: 10/02/2019 Per the patient's wish - Plan Summary Summary: Patient will be admitted for IV antibiotics, hemodialysis on Sunday, and further work-up concerning his Gram negative bacteria. Chest x-ray and labs are pending Patient appears to be medically stable. I did talk to the patient and his daughter about CODE STATUS and about the seriousness of this infection - Time Time Spent with patient: 15-24 minutes Medications reviewed and adjusted accordingly: Yes Anticipated discharge: Home
[2019-10-04] MEDS: GUAIFENESIN 600 MG TABLET.SA PO SCH (17:19)
[2019-10-04] MEDS: IPRATROPIUM/ALBUTEROL 0.5-2.5 MG/3 ML AMPUL NEB SCH (20:50)
[2019-10-04] MEDS: BUDESONIDE NEB 0.5 MG/2 ML AMPUL NEB SCH (20:50)
[2019-10-04] MEDS: ATORVASTATIN CALCIUM 20 MG TABLET PO SCH (21:35)
[2019-10-04] MEDS: VITAMIN B COMPLEX TABLET PO SCH (21:35)
[2019-10-04] MEDS: HALOPERIDOL LACTATE INJ 5 MG/1 ML VIAL IV PRN (23:36)
[2019-10-05] MEDS: IPRATROPIUM/ALBUTEROL 0.5-2.5 MG/3 ML AMPUL NEB SCH ×4 (02:35→20:35)
[2019-10-05] MEDS: HEPARIN SOD (PORCINE) 5,000 UNIT/ML 1 ML VIAL SUBCUT SCH ×3 (06:25→21:53)
[2019-10-05] MEDS: SODIUM BICARBONATE 650 MG TABLET PO SCH ×2 (06:29→17:16)
[2019-10-05] MEDS: GUAIFENESIN 600 MG TABLET.SA PO SCH ×2 (06:29→17:16)
[2019-10-05] MEDS: CEFEPIME 1 GM/D5W RTU 1 GM/50 ML RTUPB IV SCH ×2 (06:30→17:21)
[2019-10-05] MEDS: NORMAL SALINE 1000 ML 1,000 ML IV PRN ×2 (08:46→21:54)
[2019-10-05] MEDS: BUDESONIDE NEB 0.5 MG/2 ML AMPUL NEB SCH ×2 (09:06→20:35)
[2019-10-05] MEDS: PANTOPRAZOLE SODIUM 20 MG TABLET.DR PO SCH (09:57)
[2019-10-05] MEDS: CALCIUM CARBONATE 500 MG TAB.CHEW PO SCH (09:57)
[2019-10-05] MEDS: ISOSORBIDE DINITRATE 20 MG TABLET PO SCH ×2 (09:58→21:53)
[2019-10-05] MEDS: DOCUSATE SODIUM 100 MG CAPSULE PO SCH (09:58)
[2019-10-05] MEDS: MAGNESIUM OXIDE 400 MG TABLET PO SCH (09:58)
[2019-10-05] MEDS: ASPIRIN 81 MG TABLET, ENT COATED PO SCH (09:58)
[2019-10-05] MEDS: CALCITRIOL 0.25 MCG CAPSULE PO SCH (09:58)
[2019-10-05] MEDS: CETIRIZINE 10 MG TABLET PO SCH (09:58)
--- NOTE | 2019-10-05 14:17 | PDOC PROGRESS REPORT ---
Subjective Progress Note for:: 10/05/19 Subjective:: The patient is sleeping. He awakens with gentle prodding. He still requires oxygen to keep saturations greater than or equal to 90% at rest. He still has a congested cough. Reason For Visit: SEPSIS,UTI(URINARY TRACT INFECTION) Physical Exam Vital Signs: Temp Pulse Resp BP Pulse Ox 98.1 F 69 17 115/54 L 95 10/05/19 12:26 10/05/19 12:26 10/05/19 12:26 10/05/19 12:26 10/05/19 12:26 Intake & Output 10/04/19 10/05/19 10/06/19 06:59 06:59 06:59 Intake Total 1732 2350 170 Output Total 2100 100 Balance -368 2250 170 Weight 80.9 kg 81.8 kg General appearance: PRESENT: no acute distress, cooperative, well-developed Head exam: PRESENT: atraumatic, normocephalic Ear exam: PRESENT: normal external ear exam. ABSENT: bleeding, drainage Mouth exam: PRESENT: moist, tongue midline Respiratory exam: PRESENT: rhonchi - Sporadic rhonchi, symmetrical, unlabored, other - Congested cough. ABSENT: accessory muscle use, prolonged expiratory phas, rales, tachypnea, wheezes Cardiovascular exam: PRESENT: RRR, +S1, +S2 GI/Abdominal exam: PRESENT: normal bowel sounds, soft, other - Urostomy right lower quadrant. ABSENT: distended, guarding, tenderness Rectal exam: PRESENT: deferred Gentrourinary exam: PRESENT: other - Urostomy permanent Extremities exam: ABSENT: pedal edema Musculoskeletal exam: PRESENT: ambulatory, normal inspection. ABSENT: deformity Neurological exam: PRESENT: awake, oriented to person, oriented to place. ABS ENT: alert - Just woke from sleeping Psychiatric exam: PRESENT: flat affect. ABSENT: agitated, anxious Skin exam: PRESENT: dry, normal color, warm. ABSENT: rash Results Laboratory Results: 10/03/19 06:25 10/03/19 06:25 10/01/19 18:33 NT-Pro-B Natriuret Pep 5130 H Impressions: Chest X-Ray 10/02/19 00:00 IMPRESSION: NO ACUTE RADIOGRAPHIC FINDING IN THE CHEST. Assessment and Plan - Diagnosis (1) Bacteremia due to Klebsiella pneumoniae Is this a current diagnosis for this admission?: Yes Plan: 10/02/2019 Cultures were obtained at the end of his most recent hospitalization. Only 1 set of blood cultures was drawn and it was positive. So far blood cultures drawn yesterday are negative. Continue antibiotic therapy with cefepime. 10/03/2019 Current blood cultures remain negative. 10/04/2019 Blood cultures from current admission remain negative 10/05/2019 Blood cultures still negative. Treatment completed on October 08. Can switch to oral therapy if he discharges prior. (2) Klebsiella cystitis Is this a current diagnosis for this admission?: Yes Plan: 10/02/2019 There were 2 gram-negative bacilli isolates and gram-positive cocci on the urine culture from September 29. They have isolated Klebsiella pneumonia with sensitivities. There is a second gram-negative bacillus which should be sensitive to cefepime as well. The gram-positive coccus in chains may be an enterococcus or a group B strep. Cefepime does not have adequate coverage for these organisms. I spoke with pharmacy and I am going to add ampicillin 1 g IV every 12, with pharmacy to adjust for hemodialysis schedule, to cover any strep organisms in the urine. 10/03/2019 Still no final identification on the Streptococcus organism. The patient is tolerating ampicillin. The sensitivities for the Klebsiella and E. coli from the urine specimen show widespread sensitivity. I may change the antibiotic therapy to a earlier generation cephalosporin such as cefazolin. 10/04/2019 Klebsiella and E. coli identified. Awaiting final strep identification. If possible we will try and use 1 antibiotic to cover all organisms. 10/05/2019 As above. (3) Acute UTI (urinary tract infection) Is this a current diagnosis for this admission?: Yes Plan: 10/02/2019 In addition to the gram-negative bacilli and Streptococcus was isolated from the urine. I will add ampicillin to the antibiotic regimen and await final identification and sensitivities. 10/03/2019 As noted above E. coli and Klebsiella were identified. They are fairly sensitive. Consider changing the cephalosporin therapy. Ampicillin added to cover the Streptococcus. 10/04/2019 As above 10/05/2019 As above (4) COPD (chronic obstructive pulmonary disease) Qualifiers: COPD type: unspecified COPD Qualified Code(s): J44.9 - Chronic obstructive pulmonary disease, unspecified Is this a current diagnosis for this admission?: Yes Plan: 10/02/2019 The patient is not on any inhaler regimen at home. He has as needed nebulizers available. 10/03/2019 The patient still has a need for supplemental oxygen. We will continue current regimen. If there is no improvement we may require a more aggressive regimen. 10/04/2019 The patient still sounds very congested. I am going to institute scheduled nebulizer treatments with duo nebs and budesonide. He will also have additional treatments available if needed. Hopefully this will help to clear his lungs. 10/05/2019 With more aggressive pulmonary toilet he seems to be doing better. I am hopeful that we can taper him to room air by tomorrow and discharge to home. (5) Acute respiratory failure with hypoxia Is this a current diagnosis for this admission?: Yes Plan: 10/04/2019 Secondary to exacerbation of COPD most likely. With his age and comorbidities h thor has been tested for Covid-19. The results are still pending. He was on 2 L nasal cannula. We did try a window of room air but his saturation was 88% at rest. We will go back to 1 L nasal cannula. We will continue to try and taper his oxygen to off since he does not wear oxygen at home. 10/05/2019 Still requires supplemental oxygen. Continue aggressive pulmonary regimen. Continue to wean to room air as tolerated. (6) End-stage renal disease on hemodialysis Is this a current diagnosis for this admission?: Yes Plan: 10/02/2019 Dr. Cespedes has seen the patient. He is due for hemodialysis tomorrow. 10/03/2019 The patient is actually undergoing hemodialysis at this time. He appears to be tolerating it without difficulty. No reported issues from the dialysis nurses. 10/04/2019 Continue hemodialysis on Sunday, Sunday and Sunday10/05/2019 Due for hemodialysis tomorrow. If respiratory status is improved can consider discharge after dialysis. (7) Sepsis Qualifiers: Sepsis type: sepsis due to unspecified organism Sepsis acute organ dysfunction status: without acute organ dysfunction Qualified Code(s): A41.9 - Sepsis, unspecified organism Is this a current diagnosis for this admission?: Yes Plan: 10/02/2019 From September 29 the patient had Klebsiella in his blood culture as well as in his urine culture. There were several other organisms in his urine culture. He is currently on cefepime which should be effective. Blood cultures drawn on September 30 are negative so far. Blood pressures are stable. The patient occasionally has a low-grade temperature. He is not tachycardic. His lactic acid has normalized. His end-stage kidney disease requiring hemodialysis is stable. There are no elevated liver enzymes. The sepsis appears to have resolved with antibiotic therapy. 10/03/2019 Resolved (8) DNI (do not intubate) Is this a current diagnosis for this admission?: Yes Plan: 10/02/2019 Per the patient's wish - Plan Summary Summary: Patient will be admitted for IV antibiotics, hemodialysis on Sunday, and further work-up concerning his Gram negative bacteria. Chest x-ray and labs are pending Patient appears to be medically stable. I did talk to the patient and his daughter about CODE STATUS and about the seriousness of this infection - Time Time Spent with patient: 15-24 minutes Medications reviewed and adjusted accordingly: Yes Anticipated discharge: Home
[2019-10-05] MEDS: ATORVASTATIN CALCIUM 20 MG TABLET PO SCH (21:52)
[2019-10-05] MEDS: VITAMIN B COMPLEX TABLET PO SCH (21:52)
[2019-10-06] MEDS: IPRATROPIUM/ALBUTEROL 0.5-2.5 MG/3 ML AMPUL NEB SCH ×3 (02:00→14:18)
[2019-10-06] MEDS: HALOPERIDOL LACTATE INJ 5 MG/1 ML VIAL IV PRN (02:30)
[2019-10-06] MEDS ORDERED: EPOETIN ALFA EPBX IV PRN ×4 (05:00)
[2019-10-06] MEDS: SODIUM BICARBONATE 650 MG TABLET PO SCH ×3 (05:55→18:33)
[2019-10-06] MEDS: GUAIFENESIN 600 MG TABLET.SA PO SCH ×3 (05:55→18:33)
[2019-10-06] MEDS: HEPARIN SOD (PORCINE) 5,000 UNIT/ML 1 ML VIAL SUBCUT SCH ×3 (05:56→22:48)
[2019-10-06] MEDS: CEFEPIME 1 GM/D5W RTU 1 GM/50 ML RTUPB IV SCH ×2 (05:56→17:20)
[2019-10-06 06:12] LABS: ABSOLUTE EOSINOPHILS # (AUTO) 0.2 10^3/uL (0.0-0.6); ABSOLUTE MONOCYTES (AUTO) 0.6 10^3/uL (0.1-1.4); ABSOLUTE NEUT (AUTO) 4.6 10^3/uL (1.7-8.2); BASOPHILS % (AUTO) 0.5 % (0-2); EOSINOPHILS % (AUTO) 2.9 % (0-6); HEMATOCRIT 27.3 % (37.9-51.0); HEMOGLOBIN 9.4 g/dL (13.5-17.0); MEAN CORPUSCULAR HEMOGLOBIN 31.7 pg (27.0-33.4); MEAN CORPUSCULAR HGB CONC 34.2 g/dL (32.0-36.0); MEAN CORPUSCULAR VOLUME 93 fl (80-97); PLATELET COUNT 110 10^3/uL (150-450); RED BLOOD COUNT 2.95 10^6/uL (4.35-5.55); RED CELL DISTRIBUTION WIDTH 14.1 % (11.5-14.0); SEGMENTED NEUTROPHILS % (AUTO) 72.6 % (42-78); TOTAL CELLS COUNTED % (AUTO) 100 %; WHITE BLOOD COUNT 6.3 10^3/uL (4.0-10.5)
[2019-10-06 06:30] LABS: ALBUMIN 3.2 g/dL (3.5-5.0); ANION GAP 12 (5-19); BLOOD UREA NITROGEN 46 mg/dL (7-20); CALCIUM 8.2 mg/dL (8.4-10.2); CARBON DIOXIDE 23 mmol/L (22-30); CHLORIDE 108 mmol/L (98-107); GLUCOSE 116 mg/dL (75-110); PHOSPHORUS 3.6 mg/dL (2.5-4.5); POTASSIUM 4.7 mmol/L (3.6-5.0)
[2019-10-06] MEDS: DOCUSATE SODIUM 100 MG CAPSULE PO SCH (10:00)
[2019-10-06] MEDS: MAGNESIUM OXIDE 400 MG TABLET PO SCH (10:00)
[2019-10-06] MEDS: CALCITRIOL 0.25 MCG CAPSULE PO SCH (10:00)
[2019-10-06] MEDS: ASPIRIN 81 MG TABLET, ENT COATED PO SCH (10:00)
[2019-10-06] MEDS: MIDODRINE HCL 5 MG TABLET PO SCH (10:00)
[2019-10-06] MEDS: ISOSORBIDE DINITRATE 20 MG TABLET PO SCH ×3 (10:00→22:49)
[2019-10-06] MEDS: PANTOPRAZOLE SODIUM 20 MG TABLET.DR PO SCH (10:00)
[2019-10-06] MEDS: CALCIUM CARBONATE 500 MG TAB.CHEW PO SCH (10:00)
[2019-10-06] MEDS: CETIRIZINE 10 MG TABLET PO SCH (10:01)
[2019-10-06] MEDS: BUDESONIDE NEB 0.5 MG/2 ML AMPUL NEB SCH (10:24)
--- NOTE | 2019-10-06 13:40 | PDOC PROGRESS REPORT ---
Subjective Progress Note for:: 10/06/19 Subjective:: The patient is currently on hemodialysis. He still has a congested cough and requires oxygen supplementation. He is not in any distress at this point he is tolerating hemodialysis with a goal of removing 2 L Reason For Visit: SEPSIS,UTI(URINARY TRACT INFECTION) Physical Exam Vital Signs: Temp Pulse Resp BP Pulse Ox 98.7 F 88 18 107/59 L 96 10/06/19 08:44 10/06/19 10:24 10/06/19 10:24 10/06/19 08:44 10/06/19 10:24 Intake & Output 10/05/19 10/06/19 10/07/19 06:59 06:59 06:59 Intake Total 2350 1618 943 Output Total 100 445 Balance 2250 1173 943 Weight 81.8 kg 83.1 kg General appearance: PRESENT: no acute distress, well-developed Head exam: PRESENT: atraumatic, normocephalic Respiratory exam: PRESENT: rales, symmetrical, unlabored, wheezes. ABSENT: rhonchi, tachypnea Cardiovascular exam: PRESENT: RRR, +S1, +S2 GI/Abdominal exam: PRESENT: normal bowel sounds, soft. ABSENT: distended, guarding, tenderness Rectal exam: PRESENT: deferred Gentrourinary exam: ABSENT: indwelling catheter Extremities exam: ABSENT: pedal edema Musculoskeletal exam: ABSENT: ambulatory Neurological exam: PRESENT: awake. ABSENT: alert - Resting on dialysis Psychiatric exam: PRESENT: flat affect. ABSENT: agitated, anxious Results Laboratory Results: 10/06/19 05:47 10/06/19 05:47 10/06/19 10/06/19 05:47 05:47 WBC 6.3 RBC 2.95 L Hgb 9.4 L Hct 27.3 L MCV 93 MCH 31.7 MCHC 34.2 RDW 14.1 H Plt Count 110 L Seg Neutrophils % 72.6 Sodium 143.0 Potassium 4.7 Chloride 108 H Carbon Dioxide 23 Anion Gap 12 BUN 46 H Creatinine 5.25 H Est GFR ( Amer) 13 L Glucose 116 H Calcium 8.2 L Phosphorus 3.6 Magnesium 2.0 Albumin 3.2 L 10/01/19 18:33 NT-Pro-B Natriuret Pep 5130 H Impressions: Chest X-Ray 10/02/19 00:00 IMPRESSION: NO ACUTE RADIOGRAPHIC FINDING IN THE CHEST. Assessment and Plan - Diagnosis (1) Bacteremia due to Klebsiella pneumoniae Is this a current diagnosis for this admission?: Yes Plan: 10/02/2019 Cultures were obtained at the end of his most recent hospitalization. Only 1 set of blood cultures was drawn and it was positive. So far blood cultures drawn yesterday are negative. Continue antibiotic therapy with cefepime. 10/03/2019 Current blood cultures remain negative. 10/04/2019 Blood cultures from current admission remain negative 10/05/2019 Blood cultures still negative. Treatment completed on October 08. Can switch to oral therapy if he discharges prior. 10/06/2019 The Klebsiella is sensitive to cefepime. Therapy ends October 08. (2) Acute UTI (urinary tract infection) Is this a current diagnosis for this admission?: Yes Plan: 10/02/2019 In addition to the gram-negative bacilli and Streptococcus was isolated from the urine. I will add ampicillin to the antibiotic regimen and await final identification and sensitivities. 10/03/2019 As noted above E. coli and Klebsiella were identified. They are fairly sensitive. Consider changing the cephalosporin therapy. Ampicillin added to cover the Streptococcus. 10/04/2019 As above 10/05/2019 As above 10/06/2019 The strep is enterococcus sensitive to ampicillin. (3) Klebsiella cystitis Is this a current diagnosis for this admission?: Yes Plan: 10/02/2019 There were 2 gram-negative bacilli isolates and gram-positive cocci on the urine culture from September 29. They have isolated Klebsiella pneumonia with sensitivities. There is a second gram-negative bacillus which should be sensitive to cefepime as well. The gram-positive coccus in chains may be an enterococcus or a group B strep. Cefepime does not have adequate coverage for these organisms. I spoke with pharmacy and I am going to add ampicillin 1 g IV every 12, with pharmacy to adjust for hemodialysis schedule, to cover any strep organisms in the urine. 10/03/2019 Still no final identification on the Streptococcus organism. The patient is tolerating ampicillin. The sensitivities for the Klebsiella and E. coli from the urine specimen show widespread sensitivity. I may change the antibiotic therapy to a earlier generation cephalosporin such as cefazolin. 10/04/2019 Klebsiella and E. coli identified. Awaiting final strep identification. If possible we will try and use 1 antibiotic to cover all organisms. 10/05/2019 As above. 10/06/2019 The Klebsiella has the same sensitivity as the bacteremia bacteria. Treatment with cefepime as above. (4) Enterococcal infection Is this a current diagnosis for this admission?: Yes Plan: 10/06/2019 The patient is growing enterococcus from his urine. It is sensitive to ampicillin. This therapy ends October 12. (5) Acute respiratory failure with hypoxia Is this a current diagnosis for this admission?: Yes Plan: 10/04/2019 Secondary to exacerbation of COPD most likely. With his age and comorbidities he has been tested for Covid-19. The results are still pending. He was on 2 L nasal cannula. We did try a window of room air but his saturation was 88% at rest. We will go back to 1 L nasal cannula. We will continue to try and taper his oxygen to off since he does not wear oxygen at home. 10/05/2019 Still requires supplemental oxygen. Continue aggressive pulmonary regimen. Co ntinue to wean to room air as tolerated. 10/06/2019 Still wheezing. I will look at adding combination therapy with long-term agents such as Trelegy (6) COPD (chronic obstructive pulmonary disease) Qualifiers: COPD type: unspecified COPD Qualified Code(s): J44.9 - Chronic obstructive pulmonary disease, unspecified Is this a current diagnosis for this admission?: Yes Plan: 10/02/2019 The patient is not on any inhaler regimen at home. He has as needed nebulizers available. 10/03/2019 The patient still has a need for supplemental oxygen. We will continue current regimen. If there is no improvement we may require a more aggressive regimen. 10/04/2019 The patient still sounds very congested. I am going to institute scheduled nebulizer treatments with duo nebs and budesonide. He will also have additional treatments available if needed. Hopefully this will help to clear his lungs. 10/05/2019 With more aggressive pulmonary toilet he seems to be doing better. I am hopeful that we can taper him to room air by tomorrow and discharge to home. 10/06/2019 As above (7) End-stage renal disease on hemodialysis Is this a current diagnosis for this admission?: Yes Plan: 10/02/2019 Dr. Cespedes has seen the patient. He is due for hemodialysis tomorrow. 10/03/2019 The patient is actually undergoing hemodialysis at this time. He appears to be tolerating it without difficulty. No reported issues from the dialysis nurses. 10/04/2019 Continue hemodialysis on Sunday, Sunday and Sunday10/05/2019 Due for hemodialysis tomorrow. If respiratory status is improved can consider discharge after dialysis. 10/06/2019 Currently on hemodialysis. The target is to remove 2 L of fluid today. His albumin is greater than 3.0 and so I will not add albumin at this time. (8) Sepsis Qualifiers: Sepsis type: sepsis due to unspecified organism Sepsis acute organ dysfunction status: without acute organ dysfunction Qualified Code(s): A41.9 - Sepsis, unspecified organism Is this a current diagnosis for this admission?: Yes Plan: 10/02/2019 From September 29 the patient had Klebsiella in his blood culture as well as in his urine culture. There were several other organisms in his urine culture. He is currently on cefepime which should be effective. Blood cultures drawn on September 30 are negative so far. Blood pressures are stable. The patient occasionally h as a low-grade temperature. He is not tachycardic. His lactic acid has normalized. His end-stage kidney disease requiring hemodialysis is stable. There are no elevated liver enzymes. The sepsis appears to have resolved with antibiotic therapy. 10/03/2019 Resolved (9) DNI (do not intubate) Is this a current diagnosis for this admission?: Yes Plan: 10/02/2019 Per the patient's wish - Plan Summary Summary: Patient will be admitted for IV antibiotics, hemodialysis on Sunday, and further work-up concerning his Gram negative bacteria. Chest x-ray and labs are pending Patient appears to be medically stable. I did talk to the patient and his daughter about CODE STATUS and about the seriousness of this infection
[2019-10-06] MEDS ORDERED: BUDESONIDE NEB 0.5 MG/2 ML AMPUL NEB SCH (14:00)
--- NOTE | 2019-10-06 16:11 | PDOC PROGRESS REPORT ---
Subjective Progress Note for:: 10/06/19 Reason For Visit: Patient seen today on dialysis. Undergoing dialysis without any issues. He is still needs to be on supplemental oxygen. He has some shortness of breath with minimal exertion with wheezing. Denies any fever or chills. Labs and medications were reviewed. His coronavirus testing serologies are still pending. Dialysis orders were reviewed with the treating dialysis nurse. Physical Exam Vital Signs: Temp Pulse Resp BP Pulse Ox 98.7 F 66 18 107/59 L 96 10/06/19 08:44 10/06/19 14:00 10/06/19 10:24 10/06/19 08:44 10/06/19 10:24 Intake & Output 10/05/19 10/06/19 10/07/19 06:59 06:59 06:59 Intake Total 2350 1618 2050 Output Total 656 763 3265 Balance 2250 1173 -950 Weight 81.8 kg 83.1 kg General appearance: PRESENT: no acute distress Respiratory exam: PRESENT: clear to auscultation jenni, decreased breath sounds, rhonchi - Scattered. ABSENT: crackles Cardiovascular exam: PRESENT: +S1, +S2 GI/Abdominal exam: PRESENT: normal bowel sounds, soft. ABSENT: organomegaly, tenderness Extremities exam: ABSENT: pedal edema Neurological exam: PRESENT: alert, awake Results Laboratory Results: 10/06/19 05:47 10/06/19 05:47 10/06/19 10/06/19 05:47 05:47 WBC 6.3 RBC 2.95 L Hgb 9.4 L Hct 27.3 L MCV 93 MCH 31.7 MCHC 34.2 RDW 14.1 H Plt Count 110 L Seg Neutrophils % 72.6 Sodium 143.0 Potassium 4.7 Chloride 108 H Carbon Dioxide 23 Anion Gap 12 BUN 46 H Creatinine 5.25 H Est GFR ( Amer) 13 L Glucose 116 H Calcium 8.2 L Phosphorus 3.6 Magnesium 2.0 Albumin 3.2 L 10/01/19 18:33 NT-Pro-B Natriuret Pep 5130 H Impressions: Chest X-Ray 10/02/19 00:00 IMPRESSION: NO ACUTE RADIOGRAPHIC FINDING IN THE CHEST. Assessment & Plan - Diagnosis (1) Bacteremia due to Klebsiella pneumoniae Is this a current diagnosis for this admission?: Yes Plan: Currently on antibiotics and improving. Management as per hospitalist. (2) Acute UTI (urinary tract infection) Is this a current diagnosis for this admission?: Yes Plan: With Klebsiella and E. coli. On antibiotics and and improving. (3) Anemia in chronic kidney disease (CKD) Qualifiers: Chronic kidney disease stage: on chronic dialysis Qualified Code(s): N18.6 - End stage renal disease; D63.1 - Anemia in chronic kidney disease; D63.1 - Anemia in chronic kidney disease; Z99.2 - Dependence on renal dialysis; Z99.2 - Dependence on renal dialysis; Z99.2 - Dependence on renal dialysis; Z99.2 - Depe ndence on renal dialysis Is this a current diagnosis for this admission?: Yes Plan: Stable and monitor. Adjust erythropoietin as needed. (4) ESRD (end stage renal disease) on dialysis Plan: Patient seen on dialysis. Vital signs are stable. Dialysis being supervised to ensure safe and smooth procedure. Plan to remove approximately 1-2 L of fluid as tolerated. Dialysis orders were reviewed with the treating dialysis nurse. (5) COPD exacerbation Is this a current diagnosis for this admission?: Yes Plan: Currently on antibiotics and nebulizers mending managed by hospitalist.
[2019-10-06] MEDS: METHYLPREDNISOLONE INJ 40 MG/1 ML SDV IV SCH ×2 (17:20→22:30)
[2019-10-06] MEDS: AMPICILLIN SODIUM 1 GM in NORMAL SALINE 50 ML IV SCH (17:20)
[2019-10-06] MEDS: FLUTICASONE/UMECLIDIN/VILANTER 100-62.5-25 MCG/DOSE IH SCH (17:21)
[2019-10-06] MEDS: ATORVASTATIN CALCIUM 20 MG TABLET PO SCH ×2 (22:30→22:50)
[2019-10-06] MEDS: VITAMIN B COMPLEX TABLET PO SCH ×2 (22:30→22:51)
[2019-10-07] MEDS: HEPARIN SOD (PORCINE) 5,000 UNIT/ML 1 ML VIAL SUBCUT SCH ×3 (05:13→21:55)
[2019-10-07] MEDS: CEFEPIME 1 GM/D5W RTU 1 GM/50 ML RTUPB IV SCH ×2 (05:13→18:23)
[2019-10-07] MEDS: GUAIFENESIN 600 MG TABLET.SA PO SCH ×2 (05:15→18:37)
[2019-10-07] MEDS: SODIUM BICARBONATE 650 MG TABLET PO SCH ×2 (05:15→18:37)
[2019-10-07] MEDS ORDERED: AMPICILLIN SODIUM 1 GM in NORMAL SALINE 50 ML IV SCH (06:00)
[2019-10-07] MEDS: METHYLPREDNISOLONE INJ 40 MG/1 ML SDV IV SCH ×2 (10:48→21:44)
[2019-10-07] MEDS: ASPIRIN 81 MG TABLET, ENT COATED PO SCH (11:03)
[2019-10-07] MEDS: ISOSORBIDE DINITRATE 20 MG TABLET PO SCH ×2 (11:03→21:54)
[2019-10-07] MEDS: DOCUSATE SODIUM 100 MG CAPSULE PO SCH (11:03)
[2019-10-07] MEDS: MAGNESIUM OXIDE 400 MG TABLET PO SCH (11:04)
[2019-10-07] MEDS: FLUTICASONE/UMECLIDIN/VILANTER 100-62.5-25 MCG/DOSE IH SCH (11:04)
[2019-10-07] MEDS: PANTOPRAZOLE SODIUM 20 MG TABLET.DR PO SCH (11:04)
[2019-10-07] MEDS: CALCITRIOL 0.25 MCG CAPSULE PO SCH (11:04)
[2019-10-07] MEDS: CALCIUM CARBONATE 500 MG TAB.CHEW PO SCH (11:05)
[2019-10-07] MEDS: CETIRIZINE 10 MG TABLET PO SCH (11:05)
--- NOTE | 2019-10-07 16:59 | PDOC PROGRESS REPORT ---
Subjective Progress Note for:: 10/07/19 Subjective:: No adverse events overnight. He became less cooperative this morning. He was awake and was looking at me this morning but he did not really want to interact with me. His oral intake is not been very good. Reason For Visit: SEPSIS,UTI(URINARY TRACT INFECTION) Physical Exam Vital Signs: Temp Pulse Resp BP Pulse Ox 97.8 F 108 H 20 168/72 H 95 10/07/19 11:59 10/07/19 14:00 10/07/19 11:59 10/07/19 11:59 10/07/19 11:59 Intake & Output 10/06/19 10/07/19 10/08/19 06:59 06:59 06:59 Intake Total 1618 2225 Output Total 445 3350 Balance 1173 -1125 Weight 83.1 kg 79.5 kg General appearance: PRESENT: no acute distress, disheveled. ABSENT: cooperative Respiratory exam: PRESENT: decreased breath sounds, symmetrical, unlabored. ABSENT: accessory muscle use, chest wall tenderness, crackles, prolonged expiratory phas, retraction, rhonchi, tachypnea, wheezes Cardiovascular exam: PRESENT: RRR, +S1, +S2 Pulses: PRESENT: normal carotid pulses Vascular exam: PRESENT: normal capillary refill GI/Abdominal exam: PRESENT: normal bowel sounds, soft. ABSENT: distended, guarding, rebound, tenderness Extremities exam: ABSENT: clubbing, pedal edema Musculoskeletal exam: PRESENT: normal inspection. ABSENT: deformity Neurological exam: PRESENT: awake, oriented to person Psychiatric exam: PRESENT: flat affect Skin exam: PRESENT: dry, warm Results Laboratory Results: 10/06/19 05:47 10/06/19 05:47 10/01/19 18:33 Blood Blood Culture - Final NO GROWTH IN 5 DAYS 10/01/19 16:31 Blood Blood Culture - Final NO GROWTH IN 5 DAYS 10/01/19 18:33 NT-Pro-B Natriuret Pep 5130 H Impressions: Chest X-Ray 10/02/19 00:00 IMPRESSION: NO ACUTE RADIOGRAPHIC FINDING IN THE CHEST. Assessment and Plan - Diagnosis (1) Acute respiratory failure with hypoxia Is this a current diagnosis for this admission?: Yes Plan: Resolved. Somehow this patient has wound up getting tested for COVID-19. His chest x-ray was negative. He has no respiratory complaints. (2) Bacteremia due to Klebsiella pneumoniae Is this a current diagnosis for this admission?: Yes Plan: Due to a Klebsiella UTI. Continue current antibiotics. (3) Enterococcal infection Is this a current diagnosis for this admission?: Yes Plan: Currently on ampicillin (4) Klebsiella cystitis Is this a current diagnosis for this admission?: Yes Plan: On cefepime (5) Sepsis Qualifiers: Sepsis type: sepsis due to unspecified organism Sepsis acute organ dysfunction status: without acute organ dysfunction Qualified Code(s): A41.9 - Sepsis, unspecified organism Is this a current diagnosis for this admission?: Yes Plan: Due to polymicrobial UTI as noted above. Now resolved. (6) ESRD (end stage renal disease) on dialysis Is this a current diagnosis for this admission?: Yes Plan: Nephrology has been consulted for hemodialysis - Plan Summary Summary: Patient will be admitted for IV antibiotics, hemodialysis on Sunday, and further work-up concerning his Gram negative bacteria. Chest x-ray and labs are pending Patient appears to be medically stable. I did talk to the patient and his daughter about CODE STATUS and about the seriousness of this infection - Time Time Spent with patient: 15-24 minutes
[2019-10-07] MEDS: AMPICILLIN SODIUM 1 GM in NORMAL SALINE 50 ML IV SCH (18:23)
[2019-10-07] MEDS: VITAMIN B COMPLEX TABLET PO SCH (21:43)
[2019-10-07] MEDS: ATORVASTATIN CALCIUM 20 MG TABLET PO SCH (21:44)
[2019-10-08] MEDS ORDERED: EPOETIN ALFA-EPBX 2,000 UNIT, EPOETIN ALFA-EPBX 3,000 UNIT, EPOETIN ALFA-EPBX 20,000 UN... IV PRN ×4 (05:00)
[2019-10-08] MEDS: GUAIFENESIN 600 MG TABLET.SA PO SCH ×2 (05:36→17:29)
[2019-10-08] MEDS: SODIUM BICARBONATE 650 MG TABLET PO SCH (05:36)
[2019-10-08] MEDS: CEFEPIME 1 GM/D5W RTU 1 GM/50 ML RTUPB IV SCH ×2 (05:36→17:29)
[2019-10-08] MEDS: HEPARIN SOD (PORCINE) 5,000 UNIT/ML 1 ML VIAL SUBCUT SCH ×3 (06:02→22:06)
[2019-10-08 08:14] LABS: ABSOLUTE LYMPHOCYTES (AUTO) 0.7 10^3/uL (0.5-4.7); ABSOLUTE MONOCYTES (AUTO) 0.5 10^3/uL (0.1-1.4); HEMATOCRIT 33.1 % (37.9-51.0); HEMOGLOBIN 10.9 g/dL (13.5-17.0); LYMPHOCYTES % (AUTO) 6.6 % (13-45); MEAN CORPUSCULAR HGB CONC 32.9 g/dL (32.0-36.0); MEAN CORPUSCULAR VOLUME 94 fl (80-97); MONOCYTES % (AUTO) 4.1 % (3-13); PLATELET COUNT 196 10^3/uL (150-450); RED BLOOD COUNT 3.51 10^6/uL (4.35-5.55); RED CELL DISTRIBUTION WIDTH 13.9 % (11.5-14.0); SEGMENTED NEUTROPHILS % (AUTO) 89.3 % (42-78); TOTAL CELLS COUNTED % (AUTO) 100 %; WHITE BLOOD COUNT 11.2 10^3/uL (4.0-10.5)
[2019-10-08 08:27] LABS: ANION GAP 13 (5-19); BLOOD UREA NITROGEN 71 mg/dL (7-20); CALCIUM 8.2 mg/dL (8.4-10.2); CARBON DIOXIDE 26 mmol/L (22-30); CHLORIDE 100 mmol/L (98-107); GLUCOSE 168 mg/dL (75-110)
[2019-10-08] MEDS: MIDODRINE HCL 5 MG TABLET PO SCH (10:27)
[2019-10-08] MEDS: CALCIUM CARBONATE 500 MG TAB.CHEW PO SCH (10:27)
[2019-10-08] MEDS: ASPIRIN 81 MG TABLET, ENT COATED PO SCH (10:27)
[2019-10-08] MEDS: MAGNESIUM OXIDE 400 MG TABLET PO SCH (10:28)
[2019-10-08] MEDS: ISOSORBIDE DINITRATE 20 MG TABLET PO SCH ×2 (10:28→22:05)
[2019-10-08] MEDS: PANTOPRAZOLE SODIUM 20 MG TABLET.DR PO SCH (10:28)
[2019-10-08] MEDS: CALCITRIOL 0.25 MCG CAPSULE PO SCH (10:28)
[2019-10-08] MEDS: CETIRIZINE 10 MG TABLET PO SCH (10:28)
[2019-10-08] MEDS: METHYLPREDNISOLONE INJ 40 MG/1 ML SDV IV SCH ×2 (10:28→22:05)
[2019-10-08] MEDS: DOCUSATE SODIUM 100 MG CAPSULE PO SCH (10:28)
[2019-10-08] MEDS: FLUTICASONE/UMECLIDIN/VILANTER 100-62.5-25 MCG/DOSE IH SCH (10:28)
--- NOTE | 2019-10-08 14:17 | PDOC PROGRESS REPORT ---
Subjective Progress Note for:: 10/08/19 Reason For Visit: Patient seen today on dialysis. He is now cleared of covid 19 infection with his test being negative. He is undergoing dialysis without any issues. However patient is not very cooperative when asked direct questions and he just stares at you. However he is moving all his 4 limbs. He looks in no distress. Labs and medications were reviewed. Dialysis orders were reviewed with the treating dialysis nurse.Dialysis nurse has had no issues so far while undergoing dialysis and patient is very cooperative. Physical Exam Vital Signs: Temp Pulse Resp BP Pulse Ox 97.7 F 59 L 16 115/52 L 99 10/08/19 09:46 10/08/19 09:46 10/08/19 09:46 10/08/19 09:46 10/08/19 09:46 Intake & Output 10/07/19 10/08/19 10/09/19 06:59 06:59 06:59 Intake Total 2225 200 Output Total 3350 355 Balance -1125 -155 Weight 79.5 kg 80.1 kg General appearance: PRESENT: no acute distress Respiratory exam: PRESENT: clear to auscultation jenni, decreased breath sounds. ABSENT: crackles Cardiovascular exam: PRESENT: +S1, +S2 GI/Abdominal exam: PRESENT: normal bowel sounds, soft. ABSENT: organomegaly, tenderness Extremities exam: ABSENT: pedal edema Neurological exam: PRESENT: awake Results Laboratory Results: 10/08/19 07:46 10/08/19 07:46 10/08/19 10/08/19 07:46 07:46 WBC 11.2 H RBC 3.51 L Hgb 10.9 L Hct 33.1 L MCV 94 MCH 31.0 MCHC 32.9 RDW 13.9 Plt Count 196 Seg Neutrophils % 89.3 H Sodium 139.3 Potassium 5.0 Chloride 100 Carbon Dioxide 26 Anion Gap 13 BUN 71 H Creatinine 5.18 H Est GFR ( Amer) 13 L Glucose 168 H Calcium 8.2 L 10/01/19 18:33 NT-Pro-B Natriuret Pep 5130 H Impressions: Chest X-Ray 10/02/19 00:00 IMPRESSION: NO ACUTE RADIOGRAPHIC FINDING IN THE CHEST. Assessment & Plan - Diagnosis (1) ESRD (end stage renal disease) on dialysis Is this a current diagnosis for this admission?: Yes Plan: Patient seen on dialysis. Vital signs are stable. Dialysis being supervised to ensure safe and smooth procedure. Plan to remove approximately 1-2 L of fluid as tolerated. Dialysis orders were reviewed with the treating dialysis nurse. (2) Bacteremia due to Klebsiella pneumoniae Is this a current diagnosis for this admission?: Yes Plan: Currently on antibiotics and improving. Management as per hospitalist. (3) Acute UTI (urinary tract infection) Is this a current diagnosis for this admission?: Yes Plan: With Klebsiella and E. coli. On antibiotics and and improving. (4) Anemia in chronic kidney disease (CKD) Qualifiers: Chronic kidney disease stage: on chronic dialysis Qualified Code(s): N18.6 - End stage renal disease; D63.1 - Anemia in chronic kidney disease; D63.1 - Anemia in chronic kidney disease; Z99.2 - Dependence on renal dialysis; Z99.2 - Dependence on renal dialysis; Z99.2 - Dependence on renal dialysis; Z99.2 - Dependence on renal dialysis Is this a current diagnosis for this admission?: Yes Plan: Stable and monitor. Adjust erythropoietin as needed. (5) COPD exacerbation Is this a current diagnosis for this admission?: Yes Plan: Currently on antibiotics and nebulizers mending managed by hospitalist.
--- NOTE | 2019-10-08 15:53 | PDOC PROGRESS REPORT ---
Subjective Progress Note for:: 10/08/19 Subjective:: No adverse events overnight. He ruled out for coronavirus infection. He was awake and was looking at me this morning on dialysis but he did not really want to interact with me. His dialysis nurse said that he had been cooperative and interactive with her. His oral intake is not been very good. Reason For Visit: SEPSIS,UTI(URINARY TRACT INFECTION) Physical Exam Vital Signs: Temp Pulse Resp BP Pulse Ox 97.7 F 59 L 16 115/52 L 99 10/08/19 09:46 10/08/19 09:46 10/08/19 09:46 10/08/19 09:46 10/08/19 09:46 Intake & Output 10/07/19 10/08/19 10/09/19 06:59 06:59 06:59 Intake Total 2225 200 Output Total 3350 355 Balance -1125 -155 Weight 79.5 kg 80.1 kg General appearance: PRESENT: no acute distress, disheveled. ABSENT: cooperative Respiratory exam: PRESENT: decreased breath sounds, symmetrical, unlabored. ABSENT: accessory muscle use, chest wall tenderness, crackles, prolonged expiratory phas, retraction, rhonchi, tachypnea, wheezes Cardiovascular exam: PRESENT: RRR, +S1, +S2 Pulses: PRESENT: normal carotid pulses Vascular exam: PRESENT: normal capillary refill GI/Abdominal exam: PRESENT: normal bowel sounds, soft. ABSENT: distended, guarding, rebound, tenderness Extremities exam: ABSENT: clubbing, pedal edema Musculoskeletal exam: PRESENT: normal inspection. ABSENT: deformity Neurological exam: PRESENT: awake, oriented to person Psychiatric exam: PRESENT: flat affect Skin exam: PRESENT: dry, warm Results Laboratory Results: 10/08/19 07:46 10/08/19 07:46 10/08/19 10/08/19 07:46 07:46 WBC 11.2 H RBC 3.51 L Hgb 10.9 L Hct 33.1 L MCV 94 MCH 31.0 MCHC 32.9 RDW 13.9 Plt Count 196 Seg Neutrophils % 89.3 H Sodium 139.3 Potassium 5.0 Chloride 100 Carbon Dioxide 26 Anion Gap 13 BUN 71 H Creatinine 5.18 H Est GFR ( Amer) 13 L Glucose 168 H Calcium 8.2 L 10/01/19 18:33 NT-Pro-B Natriuret Pep 5130 H Impressions: Chest X-Ray 10/02/19 00:00 IMPRESSION: NO ACUTE RADIOGRAPHIC FINDING IN THE CHEST. Assessment and Plan - Diagnosis (1) Acute respiratory failure with hypoxia Is this a current diagnosis for this admission?: Yes Plan: Resolved. Somehow this patient has wound up getting tested for COVID-19. His chest x-ray was negative. He has no respiratory complaints. (2) Bacteremia due to Klebsiella pneumoniae Is this a current diagnosis for this admission?: Yes Plan: Due to a Klebsiella UTI. Continue current antibiotics. We may be able to swi tch him to an oral antibiotics soon. (3) Enterococcal infection Is this a current diagnosis for this admission?: Yes Plan: Currently on ampicillin. May be able to switch him to oral amoxicillin soon. (4) Klebsiella cystitis Is this a current diagnosis for this admission?: Yes Plan: On cefepime. May be able to switch him to oral antibiotics at discharge. (5) Sepsis Qualifiers: Sepsis type: sepsis due to unspecified organism Sepsis acute organ dysfunction status: without acute organ dysfunction Qualified Code(s): A41.9 - Sepsis, unspecified organism Is this a current diagnosis for this admission?: Yes Plan: Due to polymicrobial UTI as noted above. Now resolved. (6) ESRD (end stage renal disease) on dialysis Is this a current diagnosis for this admission?: Yes Plan: Nephrology has been consulted for hemodialysis. He will likely need placement at discharge. - Plan Summary Summary: Patient will be admitted for IV antibiotics, hemodialysis on Sunday, and further work-up concerning his Gram negative bacteria. Chest x-ray and labs are pending Patient appears to be medically stable. I did talk to the patient and his daughter about CODE STATUS and about the seriousness of this infection - Time Time Spent with patient: 15-24 minutes
[2019-10-08] MEDS: AMPICILLIN SODIUM 1 GM in NORMAL SALINE 50 ML IV SCH (18:49)
[2019-10-08] MEDS: VITAMIN B COMPLEX TABLET PO SCH (22:05)
[2019-10-08] MEDS: ATORVASTATIN CALCIUM 20 MG TABLET PO SCH (22:05)
[2019-10-09] MEDS: GUAIFENESIN 600 MG TABLET.SA PO SCH ×2 (06:15→17:37)
[2019-10-09] MEDS: HEPARIN SOD (PORCINE) 5,000 UNIT/ML 1 ML VIAL SUBCUT SCH ×3 (06:15→21:48)
[2019-10-09] MEDS: CEFEPIME 1 GM/D5W RTU 1 GM/50 ML RTUPB IV SCH (06:15)
[2019-10-09 08:50] LABS: ABSOLUTE MONOCYTES (AUTO) 0.8 10^3/uL (0.1-1.4); ABSOLUTE NEUT (AUTO) 8.2 10^3/uL (1.7-8.2); BASOPHILS % (AUTO) 0.1 % (0-2); HEMATOCRIT 33.4 % (37.9-51.0); HEMOGLOBIN 11.2 g/dL (13.5-17.0); LYMPHOCYTES % (AUTO) 9.9 % (13-45); MEAN CORPUSCULAR HGB CONC 33.4 g/dL (32.0-36.0); MEAN CORPUSCULAR VOLUME 93 fl (80-97); MONOCYTES % (AUTO) 7.6 % (3-13); PLATELET COUNT 205 10^3/uL (150-450); RED BLOOD COUNT 3.61 10^6/uL (4.35-5.55); RED CELL DISTRIBUTION WIDTH 14.1 % (11.5-14.0); SEGMENTED NEUTROPHILS % (AUTO) 82.4 % (42-78); TOTAL CELLS COUNTED % (AUTO) 100 %
--- NOTE | 2019-10-09 09:11 | PDOC PROGRESS REPORT ---
Subjective Progress Note for:: 10/09/19 Subjective:: 79 year old male comes into the emergency room with gram negative rods in his urine and blood. According to the patient and his daughter he was in the emergency room yesterday with fever and malaise. He was given a shot of Rocephin some IV fluids and blood cultures and urine cultures were taken. Prior to this he had had 1 day of fever and vomiting. Today he went to dialysis as he normally does on Sunday and Sunday and was told return to the emergenc y room for his gram-negative rods in his urine and blood. The history is given by his daughter who is in the room and states that Sunday night he started vomiting he vomited 3 times and was febrile and had chills. Evidently has a history of urinary tract infections. Then came to the emergency room with these complaints on Sunday as listed above. Patient has been on dialysis for 3 to 4 years now, as a result of contrast agent. Patient also has underlying COPD that seems to be worse today Patient now is to be admitted for IV antibiotics and further work-up. 10/02/19-Patient states that he feels okay. He is not short of breath. He is on room air. He is afebrile this morning. 10/03/19-Currently on dialysis. Still with a persistent cough. Still requires oxygen supplementation. 10/04/19-The patient has a very congested cough. He states he does cough up mucus but swallows it. He still does not quite feel at his baseline with regard to the breathing. 10/05/19-The patient is sleeping. He awakens with gentle prodding. He still requires oxygen to keep saturations greater than or equal to 90% at rest. He still has a congested cough. 10/06/19-The patient is currently on hemodialysis. He still has a congested cough and requires oxygen supplementation. He is not in any distress at this point he is tolerating hemodialysis with a goal of removing 2 L 10/07/19-No adverse events overnight. He became less cooperative this morning. He was awake and was looking at me this morning but he did not really want to interact with me. His oral intake is not been very good. 10/08/19-No adverse events overnight. He ruled out for coronavirus infection. He was awake and was looking at me this morning on dialysis but he did not really want to interact with me. His dialysis nurse said that he had been cooperative and interactive with her. His oral intake is not been very good. 10/09/2019-patient is comfortable in the bed responding appropriately. He was ruled out for coronavirus. He had a dialysis shunt done yesterday. Is getting dialysis Sunday. He is waiting for placement. Patient is afebrile and plan is to discontinue antibiotics from today. Reason For Visit: SEPSIS,UTI(URINARY TRACT INFECTION) Physical Exam Vital Signs: Temp Pulse Resp BP Pulse Ox 98.1 F 68 18 110/52 L 96 10/08/19 20:06 10/09/19 07:00 10/08/19 20:06 10/08/19 20:06 10/09/19 04:53 Intake & Output 10/08/19 10/09/19 10/10/19 06:59 06:59 06:59 Intake Total 200 340 50 Output Total 355 1650 Balance -155 -1310 50 Weight 80.1 kg 77.3 kg General appearance: PRESENT: no acute distress, disheveled Head exam: PRESENT: atraumatic Eye exam: PRESENT: PERRLA Ear exam: PRESENT: normal external ear exam Mouth exam: PRESENT: moist, tongue midline Teeth exam: PRESENT: poor dentation Neck exam: ABSENT: carotid bruit, JVD, lymphadenopathy, thyromegaly Respiratory exam: PRESENT: decreased breath sounds. ABSENT: accessory muscle use Cardiovascular exam: PRESENT: RRR. ABSENT: diastolic murmur, rubs, systolic murmur Pulses: PRESENT: normal dorsalis pedis pul Vascular exam: PRESENT: normal capillary refill GI/Abdominal exam: PRESENT: normal bowel sounds, soft. ABSENT: distended, guarding, mass, organolmegaly, rebound, tenderness Rectal exam: PRESENT: deferred Extremities exam: PRESENT: full ROM. ABSENT: calf tenderness, clubbing, pedal edema Neurological exam: PRESENT: alert, awake, oriented to person, oriented to time Psychiatric exam: PRESENT: appropriate affect, normal mood. ABSENT: homicidal ideation, suicidal ideation Results Laboratory Results: 10/09/19 08:21 10/09/19 08:21 WBC 10.0 RBC 3.61 L Hgb 11.2 L Hct 33.4 L MCV 93 MCH 31.0 MCHC 33.4 RDW 14.1 H Plt Count 205 Seg Neutrophils % 82.4 H 10/01/19 18:33 NT-Pro-B Natriuret Pep 5130 H Impressions: Chest X-Ray 10/02/19 00:00 IMPRESSION: NO ACUTE RADIOGRAPHIC FINDING IN THE CHEST. Assessment and Plan - Diagnosis (1) Acute respiratory failure with hypoxia Is this a current diagnosis for this admission?: Yes Plan: Resolved. Somehow this patient has wound up getting tested for COVID-19. His chest x-ray was negative. He has no respiratory complaints. 10/09/2019-patient admitted with acute respiratory failure hypoxia. Resolving. Pulse ox is 96% 2 L. Chest x-ray was negative. On examination chest bilateral entry was decreased no wheezing no crepitations. Acute hypoxic respiratory failure resolved. (2) Bacteremia due to Klebsiella pneumoniae Is this a current diagnosis for this admission?: Yes Plan: Due to a Klebsiella UTI. Continue current antibiotics. We may be able to switch him to an oral antibiotics soon. 10/09/2019-patient treated with IV antibiotic therapy for bacteremia secondary to Klebsiella in the urine. Completed 9 days of antibiotic therapy plan is to discontinue antibiotics from today. (3) Enterococcal infection Is this a current diagnosis for this admission?: Yes Plan: Currently on ampicillin. May be able to switch him to oral amoxicillin soon. 10/09/2019-cultures from urostomy indicates Klebsiella pneumonia, E. coli, Enterococcus faecalis. IV antibiotic therapy for the last 9 days. Patient is afebrile. Plan is to discontinue IV antibiotics from today. (4) Klebsiella cystitis Is this a current diagnosis for this admission?: Yes Plan: On cefepime. May be able to switch him to oral antibiotics at discharge. 10/09/2019-patient was treated with IV cefepime plan is to switch to oral amoxicillin from today. (5) Sepsis Qualifiers: Sepsis type: sepsis due to unspecified organism Sepsis acute organ dysfunction status: without acute organ dysfunction Qualified Code(s): A41.9 - Sepsis, unspecified organism Is this a current diagnosis for this admission?: Yes Plan: Due to polymicrobial UTI as noted above. Now resolved. (6) ESRD (end stage renal disease) Is this a current diagnosis for this admission?: No Plan: 10/09/2019-ESRD patient on hemodialysis. Nephrology on board. Last dialysis yesterday. Is waiting for placement. - Plan Summary Summary: Patient will be admitted for IV antibiotics, hemodialysis on Sunday, and further work-up concerning his Gram negative bacteria. Chest x-ray and labs are pending Patient appears to be medically stable. I did talk to the patient and his daughter about CODE STATUS and about the seriousness of this infection
[2019-10-09 09:29] LABS: ALBUMIN 3.4 g/dL (3.5-5.0); ALKALINE PHOSPHATASE 71 U/L (38-126); ANION GAP 12 (5-19); ASPARTATE AMINO TRANSFERASE 23 U/L (17-59); BILIRUBIN,DIRECT 0.6 mg/dL (0.0-0.4); BILIRUBIN,TOTAL 0.6 mg/dL (0.2-1.3); BLOOD UREA NITROGEN 67 mg/dL (7-20); CALCIUM 8.2 mg/dL (8.4-10.2); CARBON DIOXIDE 27 mmol/L (22-30); CHLORIDE 99 mmol/L (98-107); GLUCOSE 162 mg/dL (75-110); POTASSIUM 4.8 mmol/L (3.6-5.0); TOTAL PROTEIN 6.7 g/dL (6.3-8.2)
[2019-10-09] MEDS: CALCIUM CARBONATE 500 MG TAB.CHEW PO SCH (09:59)
[2019-10-09] MEDS: METHYLPREDNISOLONE INJ 40 MG/1 ML SDV IV SCH ×2 (09:59→21:48)
[2019-10-09] MEDS: DOCUSATE SODIUM 100 MG CAPSULE PO SCH (09:59)
[2019-10-09] MEDS: CETIRIZINE 10 MG TABLET PO SCH (09:59)
[2019-10-09] MEDS: MAGNESIUM OXIDE 400 MG TABLET PO SCH (10:00)
[2019-10-09] MEDS: FLUTICASONE/UMECLIDIN/VILANTER 100-62.5-25 MCG/DOSE IH SCH (10:00)
[2019-10-09] MEDS: ASPIRIN 81 MG TABLET, ENT COATED PO SCH (10:00)
[2019-10-09] MEDS: PANTOPRAZOLE SODIUM 20 MG TABLET.DR PO SCH (10:00)
[2019-10-09] MEDS: CALCITRIOL 0.25 MCG CAPSULE PO SCH (10:00)
[2019-10-09] MEDS: ISOSORBIDE DINITRATE 20 MG TABLET PO SCH ×2 (10:00→21:48)
[2019-10-09] MEDS: POLYETHYLENE GLYCOL 3350 POWDER 17 GM/1 PACKET PO SCH (13:30)
[2019-10-09] MEDS: VITAMIN B COMPLEX TABLET PO SCH (21:47)
[2019-10-09] MEDS: ATORVASTATIN CALCIUM 20 MG TABLET PO SCH (21:48)
[2019-10-10 05:24] LABS: HEMOGLOBIN 11.2 g/dL (13.5-17.0); MEAN CORPUSCULAR HEMOGLOBIN 31.2 pg (27.0-33.4); MEAN CORPUSCULAR VOLUME 92 fl (80-97); PLATELET COUNT 224 10^3/uL (150-450); RED CELL DISTRIBUTION WIDTH 13.7 % (11.5-14.0); WHITE BLOOD COUNT 9.5 10^3/uL (4.0-10.5)
[2019-10-10] MEDS: GUAIFENESIN 600 MG TABLET.SA PO SCH (05:34)
[2019-10-10] MEDS: HEPARIN SOD (PORCINE) 5,000 UNIT/ML 1 ML VIAL SUBCUT SCH ×2 (05:35→13:20)
[2019-10-10 05:48] LABS: ANION GAP 14 (5-19); CARBON DIOXIDE 24 mmol/L (22-30); CHLORIDE 99 mmol/L (98-107); GLUCOSE 179 mg/dL (75-110); POTASSIUM 4.9 mmol/L (3.6-5.0)
[2019-10-10 05:53] LABS: CALCIUM 8.1 mg/dL (8.4-10.2)
[2019-10-10 06:28] LABS: BLOOD UREA NITROGEN 88 mg/dL (7-20)
[2019-10-10 08:37] LABS: RES PRO RESPIR SYNCYTIAL VIRUS Not Detected (Not Detect); RES PRO RHINOVIRUS/ENTEROVIRUS Not Detected (Not Detect); RESP PRO CHLAMYDOPHILA PNEUMON Not Detected (Not Detect); RESP PRO INFLUENZA A/H1-2009 Not Detected (Not Detect); RESP PROF BORDETELLA PERTUSSIS Not Detected (Not Detect); RESP PROF CORONAVIRUS 229E Not Detected (Not Detect); RESP PROF CORONAVIRUS HKU1 Not Detected (Not Detect); RESP PROF CORONAVIRUS NL63 Not Detected (Not Detect); RESP PROF CORONAVIRUS OC43 Not Detected (Not Detect); RESP PROF INFLUENZA A/H1 Not Detected (Not Detect); RESP PROF INFLUENZA A/H3 Not Detected (Not Detect); RESP PROF METAPNEUMOVIRUS Not Detected (Not Detect); RESP PROF PARAINFLUENZA 1 Not Detected (Not Detect); RESP PROF PARAINFLUENZA 2 Not Detected (Not Detect); RESP PROF PARAINFLUENZA 3 Not Detected (Not Detect); RESP PROF PARAINFLUENZA 4 Not Detected (Not Detect); RESPIRATORY PROF INFLUENZA A Not Detected (Not Detect); RESPIRATORY PROF INFLUENZA B Not Detected (Not Detect)
[2019-10-10 09:22] LABS: RESP PRO MYCOPLASMA PNEUMONIAE Not Detected (Not Detect)
[2019-10-10] MEDS ORDERED: MIDODRINE HCL 5 MG TABLET PO SCH (10:00)
--- NOTE | 2019-10-10 10:50 | PDOC DISCHARGE SUMMARY ---
Impression - Admit/DC Date/PCP Admission Date/Primary Care Provider: 10/01/19 17:[facility] Discharge Date: 10/10/19 - Discharge Diagnosis (1) Acute respiratory failure with hypoxia Is this a current diagnosis for this admission?: Yes (2) Bacteremia due to Klebsiella pneumoniae Is this a current diagnosis for this admission?: Yes (3) Enterococcal infection Is this a current diagnosis for this admission?: Yes (4) Klebsiella cystitis Is this a current diagnosis for this admission?: Yes (5) Sepsis Is this a current diagnosis for this admission?: Yes (6) ESRD (end stage renal disease) Is this a current diagnosis for this admission?: No - Assessment Summary: Patient will be admitted for IV antibiotics, hemodialysis on Sunday, and further work-up concerning his Gram negative bacteria. Chest x-ray and labs are pending Patient appears to be medically stable. I did talk to the patient and his daughter about CODE STATUS and about the seriousness of this infection (1) Acute respiratory failure with hypoxia Is this a current diagnosis for this admission?: Yes Plan: Resolved. Somehow this patient has wound up getting tested for COVID-19. His chest x-ray was negative. He has no respiratory complaints. 10/09/2019-patient admitted with acute respiratory failure hypoxia. Resolving. Pulse ox is 96% 2 L. Chest x-ray was negative. On examination chest bilateral entry was decreased no wheezing no crepitations. Acute hypoxic respiratory failure resolved. 10/10/2019-patient admitted with acute respiratory failure with hypoxia which was resolved. Pulse ox is 94% on 1 L. Patient not need home oxygen at this time. (2) Bacteremia due to Klebsiella pneumoniae Is this a current diagnosis for this admission?: Yes Plan: Due to a Klebsiella UTI. Continue current antibiotics. We may be able to switch him to an oral antibiotics soon. 10/09/2019-patient treated with IV antibiotic therapy for bacteremia secondary to Klebsiella in the urine. Completed 9 days of antibiotic therapy plan is to discontinue antibiotics from today. 10/10/2019-patient was treated with IV antibiotic therapy for bacteremia due to Klebsiella pneumonia. Patient was started on amoxicillin he is going home on amoxicillin 5oo mg p.o. 3 times daily for 1 week. (3) Enterococcal infection Is this a current diagnosis for this admission?: Yes Plan: Currently on ampicillin. May be able to switch him to oral amoxicillin soon. 10/09/2019-cultures from urostomy indicates Klebsiella pneumonia, E. coli, Enterococcus faecalis. IV antibiotic therapy for the last 9 days. Patient is afebrile. Plan is to discontinue IV antibiotics from today. 10/10/2019-cultures from urostomy indicates Klebsiella, E. coli, enterococcus. Antibiotic therapy was completed yesterday. Patient is afebrile with T-max of 97.3. (4) Klebsiella cystitis Is this a current diagnosis for this admission?: Yes Plan: On cefepime. May be able to switch him to oral antibiotics at discharge. 10/09/2019-patient was treated with IV cefepime plan is to switch to oral amoxicillin from today. 03/11/2020-patient is going home on amoxicillin 5 mg p.o. 3 times daily for 1 week. (5) Sepsis Qualifiers: Sepsis type: sepsis due to unspecified organism Sepsis acute organ dysfunction status: without acute organ dysfunction Qualified Code(s): A41.9 - Sepsis, unspecified organism Is this a current diagnosis for this admission?: Yes Plan: Due to polymicrobial UTI as noted above. Now resolved. (6) ESRD (end stage renal disease) Is this a current diagnosis for this admission?: No Plan: 10/09/2019-ESRD patient on hemodialysis. Nephrology on board. Last dialysis yesterday. Is waiting for placement. 10/10/2019-patient is receiving dialysis today in the dialysis chair tolerating it well. Patient is advised to continue the dialysis schedule Sunday as an outpatient. - Additional Information Resuscitation Status: Do Not Intubate Discharge Diet: Cardiac Discharge Activity: Activity As Tolerated [facility]: [facility] [[facility]] - Follow up as needed (The patient will make their own follow-up appointment.) Prescriptions: Amoxicillin Trihydrate [Amoxil 500 mg Capsule] 500 mg PO Q8 #21 capsule Home Medications: Calcium Carbonate [Tums Chewable 500 mg Tab.chew] 500 mg PO DAILY 04/17/18 Folic Acid/Vitamin B Comp W-C [Nephrocaps Multiple Vitamin Capsule] 1 cap PO QHS 04/17/18 Magnesium Oxide [Mag-Ox 400 mg Tablet] 400 mg PO DAILY 04/17/18 Omeprazole 20 mg PO DAILY 04/17/18 Sodium Bicarbonate [Sodium Bicarbonate 650 mg Tablet] 650 mg PO Q12 04/17/18 Aspirin [Ecotrin 81 mg EC Tablet] 81 mg PO QHS tabec 09/17/18 Isosorbide Dinitrate [Isordil Titradose 20 mg Tablet] 20 mg PO Q12 01/15/19 Cetirizine HCl [Zyrtec 10 mg Tablet] 1 tab PO DAILY 04/22/19 Atorvastatin Calcium [Lipitor 20 mg Tablet] 20 mg PO QHS tablet 04/29/19 Calcitriol [Rocaltrol 0.25 mcg Capsule] 0.25 mcg PO DAILY 10/01/19 Colchicine [Colcrys 0.6 mg Tablet] 0.6 mg PO DAILYP PRN 10/01/19 Midodrine HCl [Proamatine 5 mg Tablet] 5 mg PO MOWEFR@1000 10/01/19 Saccharomyces Boulardii [Probiotic] 1 cap PO DAILY 10/01/19 Amoxicillin Trihydrate [Amoxil 500 mg Capsule] 500 mg PO Q8 #21 capsule 10/10/19 History of Present Illiness History of Present Illness: TYLOR JIMENEZ is a 79 year old male 79 year old male comes into the emergency room with gram negative rods in his urine and blood. According to the patient and his daughter he was in the emergency room yesterday with fever and malaise. He was given a shot of Rocephin some IV fluids and blood cultures and urine cultures were taken. Prior to this he had had 1 day of fever and vomiting. Today he went to dialysis as he normally does on Sunday and Sunday and was told return to the emergency room for his gram-negative rods in his urine and blood. The history is given by his daughter who is in the room and states that Sunday night he started vomiting he vomited 3 times and was febrile and had chills. Evidently has a history of urinary tract infections. Then came to the emergency room with these complaints on Sunday as listed above. Patient has been on dialysis for 3 to 4 years now, as a result of contrast agent. Patient also has underlying COPD that seems to be worse today Patient now is to be admitted for IV antibiotics and further work-up. Hospital Course Hospital Course: 79 year old male comes into the emergency room with gram negative rods in his urine and blood. According to the patient and his daughter he was in the emergency room yesterday with fever and malaise. He was given a shot of Rocephin some IV fluids and blood cultures and urine cultures were taken. Prior to this he had had 1 day of fever and vomiting. Today he went to dialysis as he normally does on Sunday and Sunday and was told return to the emergency room for his gram-negative rods in his urine and blood. The history is given by his daughter who is in the room and states that Sunday night he started vomiting he vomited 3 times and was febrile and had chills. Evidently has a history of urinary tract infections. Then came to the emergency room with these complaints on Sunday as listed above. Patient has been on dialysis for 3 to 4 years now, as a result of contrast agent. Patient also has underlying COPD that seems to be worse today Patient now is to be admitted for IV antibiotics and further work-up. 10/02/19-Patient states that he feels okay. He is not short of breath. He is on room air. He is afebrile this morning. 10/03/19-Currently on dialysis. Still with a persistent cough. Still requires oxygen supplementation. 10/04/19-The patient has a very congested cough. He states he does cough up mucus but swallows it. He still does not quite feel at his baseline with regard to the breathing. 10/05/19-The patient is sleeping. He awakens with gentle prodding. He still requires oxygen to keep saturations greater than or equal to 90% at rest. He still has a congested cough. 10/06/19-The patient is currently on hemodialysis. He still has a congested cough and requires oxygen supplementation. He is not in any distress at this point he is tolerating hemodialysis with a goal of removing 2 L 10/07/19-No adverse events overnight. He became less cooperative this morning. He was awake and was looking at me this morning but he did not really want to interact with me. His oral intake is not been very good. 10/08/19-No adverse events overnight. He ruled out for coronavirus infection. He was awake and was looking at me this morning on dialysis but he did not really want to interact with me. His dialysis nurse said that he had been cooperative and interactive with her. His oral intake is not been very good. 10/09/2019-patient is comfortable in the bed responding appropriately. He was ruled out for coronavirus. He had a dialysis shunt done yesterday. Is getting dialysis Sunday. He is waiting for placement. Patient is afebrile and plan is to discontinue antibiotics from today. 10/10/2019-patient the dialysis unit receiving the dialysis without any problems. Alert awake communicating well. Expressing desire to go home with home health. He lives with his daughter. Nurse also told me that daughter is expressing desire to take at home with home health. Physical Exam Vital Signs: Temp Pulse Resp BP Pulse Ox 97.3 F 69 20 146/74 H 94 10/10/19 04:21 10/10/19 07:00 10/10/19 04:21 10/10/19 04:21 10/10/19 04:21 Intake & Output 10/09/19 10/10/19 10/11/19 06:59 06:59 06:59 Intake Total 340 986 Output Total 1650 450 Balance -1310 536 Weight 77.3 kg 77.2 kg General appearance: PRESENT: no acute distress, well-developed Head exam: PRESENT: atraumatic Eye exam: PRESENT: PERRLA Mouth exam: PRESENT: moist, tongue midline Teeth exam: PRESENT: poor dentation Neck exam: ABSENT: carotid bruit, JVD, lymphadenopathy, thyromegaly Respiratory exam: PRESENT: clear to auscultation jenni. ABSENT: rales, rhonchi, wheezes Cardiovascular exam: PRESENT: RRR. ABSENT: diastolic murmur, rubs, systolic murmur Pulses: PRESENT: normal dorsalis pedis pul GI/Abdominal exam: PRESENT: normal bowel sounds, soft. ABSENT: distended, guarding, mass, organolmegaly, rebound, tenderness Rectal exam: PRESENT: deferred Extremities exam: PRESENT: full ROM. ABSENT: calf tenderness, clubbing, pedal edema Neurological exam: PRESENT: alert, awake, oriented to person, oriented to place, oriented to time, oriented to situation, CN II-XII grossly intact. ABSENT: motor sensory deficit Psychiatric exam: PRESENT: appropriate affect, normal mood. ABSENT: homicidal ideation, suicidal ideation Results Laboratory Results: WBC 9.5 10^3/uL (4.0-10.5) 10/10/19 05:01 RBC 3.60 10^6/uL (4.35-5.55) L 10/10/19 05:01 Hgb 11.2 g/dL (13.5-17.0) L 10/10/19 05:01 Hct 33.0 % (37.9-51.0) L 10/10/19 05:01 MCV 92 fl (80-97) 10/10/19 05:01 MCH 31.2 pg (27.0-33.4) 10/10/19 05:01 MCHC 34.0 g/dL (32.0-36.0) 10/10/19 05:01 RDW 13.7 % (11.5-14.0) 10/10/19 05:01 Plt Count 224 10^3/uL (150-450) 10/10/19 05:01 Lymph % (Auto) 9.9 % (13-45) L 10/09/19 08:21 Mckenzie % (Auto) 7.6 % (3-13) 10/09/19 08:21 Eos % (Auto) 0.0 % (0-6) 10/09/19 08:21 Baso % (Auto) 0.1 % (0-2) 10/09/19 08:21 Absolute Neuts (auto) 8.2 10^3/uL (1.7-8.2) 10/09/19 08:21 Absolute Lymphs (auto) 1.0 10^3/uL (0.5-4.7) 10/09/19 08:21 Absolute Monos (auto) 0.8 10^3/uL (0.1-1.4) 10/09/19 08:21 Absolute Eos (auto) 0.0 10^3/uL (0.0-0.6) 10/09/19 08:21 Absolute Basos (auto) 0.0 10^3/uL (0.0-0.2) 10/09/19 08:21 Total Counted 100 10/02/19 05:48 Seg Neutrophils % 82.4 % (42-78) H 10/09/19 08:21 Seg Neuts % (Manual) 66 % (42-78) 10/02/19 05:48 Lymphocytes % (Manual) 26 % (13-45) 10/02/19 05:48 Monocytes % (Manual) 7 % (3-13) 10/02/19 05:48 Eosinophils % (Manual) 0 % (0-6) 10/02/19 05:48 Basophils % (Manual) 1 % (0-2) 10/02/19 05:48 Abs Neuts (Manual) 3.0 10^3/uL (1.7-8.2) 10/02/19 05:48 Abs Lymphs (Manual) 1.2 10^3/uL (0.5-4.7) 10/02/19 05:48 Abs Monocytes (Manual) 0.3 10^3/uL (0.1-1.4) 10/02/19 05:48 Absolute Eos (Manual) 0.0 10^3/uL (0.0-0.6) 10/02/19 05:48 Abs Basophils (Manual) 0.0 10^3/uL (0.0-0.2) 10/02/19 05:48 Platelet Comment DECREASED 10/02/19 05:48 Anisocytosis SLIGHT 10/02/19 05:48 Ovalocytes SLIGHT 10/02/19 05:48 PT 13.5 SEC (11.4-15.4) 10/01/19 16:31 INR 1.03 10/01/19 16:31 VBG pH 7.32 (7.30-7.42) 10/01/19 18:33 VBG pCO2 63.0 mmHg (35-63) 10/01/19 18:33 VBG HCO3 31.4 mmol/L (20-32) 10/01/19 18:33 VBG Base Excess 3.0 mmol/L 10/01/19 18:33 Sodium 136.7 mmol/L (137-145) L 10/10/19 05:01 Potassium 4.9 mmol/L (3.6-5.0) 10/10/19 05:01 Chloride 99 mmol/L (98-107) 10/10/19 05:01 Carbon Dioxide 24 mmol/L (22-30) 10/10/19 05:01 Anion Gap 14 (5-19) 10/10/19 05:01 BUN 88 mg/dL (7-20) H D 10/10/19 05:01 Creatinine 4.93 mg/dL (0.52-1.25) H 10/10/19 05:01 Est GFR ( Amer) 14 (>60) L 10/10/19 05:01 Est GFR (MDRD) Non-Af 11 (>60) L 10/10/19 05:01 Glucose 179 mg/dL (75-110) H 10/10/19 05:01 POC Glucose 136 mg/dL (70-110) H 10/06/19 21:46 Lactic Acid 0.9 mmol/L (0.7-2.1) 10/01/19 22:48 Calcium 8.1 mg/dL (8.4-10.2) L 10/10/19 05:01 Phosphorus 3.6 mg/dL (2.5-4.5) 10/06/19 05:47 Magnesium 2.6 mg/dL (1.6-2.3) H 10/09/19 08:21 Total Bilirubin 0.6 mg/dL (0.2-1.3) 10/09/19 08:21 Direct Bilirubin 0.6 mg/dL (0.0-0.4) H 10/09/19 08:21 Neonat Total Bilirubin Not Reportable 10/09/19 08:21 Neonat Direct Bilirubin Not Reportable 10/09/19 08:21 Neonat Indirect Bili Not Reportable 10/09/19 08:21 AST 23 U/L (17-59) 10/09/19 08:21 ALT 32 U/L (<50) 10/09/19 08:21 Alkaline Phosphatase 71 U/L (38-126) 10/09/19 08:21 NT-Pro-B Natriuret Pep 5130 pg/mL (<450) H 10/01/19 18:33 Total Protein 6.7 g/dL (6.3-8.2) 10/09/19 08:21 Albumin 3.4 g/dL (3.5-5.0) L 10/09/19 08:21 Nasal Adenovirus (PCR) Not Detected (Not Detect) 10/01/19 17:15 Nasal Coronavir 229E PCR Not Detected (Not Detect) 10/01/19 17:15 Nasal Coronavir HKU1 PCR Not Detected (Not Detect) 10/01/19 17:15 Nasal Coronavir NL63 PCR Not Detected (Not Detect) 10/01/19 17:15 Nasal Coronavir OC43 PCR Not Detected (Not Detect) 10/01/19 17:15 Nasal Enterovir/Rhinovir PCR Not Detected (Not Detect) 10/01/19 17:15 Nasal Influenza A PCR Not Detected (Not Detect) 10/01/19 17:15 Nasal Influenza A H1 PCR Not Detected (Not Detect) 10/01/19 17:15 Nasal Influ A H1 2009 PCR Not Detected (Not Detect) 10/01/19 17:15 Nasal Influenza A H3 PCR Not Detected (Not Detect) 10/01/19 17:15 Nasal Influenza B PCR Not Detected (Not Detect) 10/01/19 17:15 Nasal Parainfluen 1 PCR Not Detected (Not Detect) 10/01/19 17:15 Nasal Parainfluen 2 PCR Not Detected (Not Detect) 10/01/19 17:15 Nasal Parainfluen 3 PCR Not Detected (Not Detect) 10/01/19 17:15 Nasal Parainfluen 4 PCR Not Detected (Not Detect) 10/01/19 17:15 Nasal RSV (PCR) Not Detected (Not Detect) 10/01/19 17:15 Nasal B.pertussis DNA PCR Not Detected (Not Detect) 10/01/19 17:15 Nasal C.pneumoniae (PCR) Not Detected (Not Detect) 10/01/19 17:15 Nasal M.pneumoniae (PCR) Not Detected (Not Detect) 10/01/19 17:15 COVID-19 Source THROAT 10/02/19 10:06 COVID-19 ([place]) Not Detected (Not Detect) 10/02/19 10:06 Human Metapneumovir PCR Not Detected (Not Detect) 10/01/19 17:15 Influenza A (Rapid) NEGATIVE (NEGATIVE) 10/01/19 17:00 Influenza B (Rapid) NEGATIVE (NEGATIVE) 10/01/19 17:00 Group A Strep Rapid NEGATIVE (NEGATIVE) 10/02/19 13:30 10/01/19 18:33 NT-Pro-B Natriuret Pep 5130 H Impressions: Chest X-Ray 10/01/19 00:00 IMPRESSION: No acute findings Chest X-Ray 10/02/19 00:00 IMPRESSION: NO ACUTE RADIOGRAPHIC FINDING IN THE CHEST. Plan Plan of Treatment: Patient is going home with home health prescription for amoxicillin was given. 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 He was advised to keep his dialysis schedule as an outpatient. Time Spent: Greater than 30 Minutes Stroke Is this a Stroke Patient?: No Acute Heart Failure - Is this a Heart Failure Patient?: No
--- NOTE | 2019-10-10 11:11 | PDOC PROGRESS REPORT ---
Subjective Progress Note for:: 10/10/19 Reason For Visit: Patient seen today on dialysis. Undergoing dialysis without any issues. Vital signs are stable. He is more responding to questions. Denies any chest pain or shortness of breath. Labs and medications were reviewed. Dialysis orders were reviewed with the treating dialysis nurse. Physical Exam Vital Signs: Temp Pulse Resp BP Pulse Ox 97.3 F 69 20 146/74 H 94 10/10/19 04:21 10/10/19 07:00 10/10/19 04:21 10/10/19 04:21 10/10/19 04:21 Intake & Output 10/09/19 10/10/19 10/11/19 06:59 06:59 06:59 Intake Total 340 986 Output Total 1650 450 Balance -1310 536 Weight 77.3 kg 77.2 kg General appearance: PRESENT: no acute distress Respiratory exam: PRESENT: clear to auscultation jenni. ABSENT: crackles Cardiovascular exam: PRESENT: +S1, +S2 GI/Abdominal exam: PRESENT: normal bowel sounds, soft. ABSENT: organomegaly, tenderness Neurological exam: PRESENT: alert, awake Results Laboratory Results: 10/10/19 05:01 10/10/19 05:01 10/10/19 10/10/19 05:01 05:01 WBC 9.5 RBC 3.60 L Hgb 11.2 L Hct 33.0 L MCV 92 MCH 31.2 MCHC 34.0 RDW 13.7 Plt Count 224 Sodium 136.7 L Potassium 4.9 Chloride 99 Carbon Dioxide 24 Anion Gap 14 BUN 88 H D Creatinine 4.93 H Est GFR ( Amer) 14 L Glucose 179 H Calcium 8.1 L 10/01/19 18:33 NT-Pro-B Natriuret Pep 5130 H Impressions: Chest X-Ray 10/02/19 00:00 IMPRESSION: NO ACUTE RADIOGRAPHIC FINDING IN THE CHEST. Assessment & Plan - Diagnosis (1) ESRD (end stage renal disease) on dialysis Is this a current diagnosis for this admission?: Yes Plan: Patient seen on dialysis. Vital signs are stable. Dialysis being supervised to ensure safe and smooth procedure. Plan to remove approximately 1-2 L of fluid as tolerated. Dialysis orders were reviewed with the treating dialysis nurse. (2) Bacteremia due to Klebsiella pneumoniae Is this a current diagnosis for this admission?: Yes Plan: Currently on antibiotics and improving. Management as per hospitalist. (3) Acute UTI (urinary tract infection) Is this a current diagnosis for this admission?: Yes Plan: With Klebsiella and E. coli. On antibiotics and and improving. (4) Anemia in chronic kidney disease (CKD) Qualifiers: Chronic kidney disease stage: on chronic dialysis Qualified Code(s): N18.6 - End stage renal disease; D63.1 - Anemia in chronic kidney disease; D63.1 - Anemia in chronic kidney disease; Z99.2 - Dependence on renal dialysis; Z99.2 - Dependence on renal dialysis; Z99.2 - Dependence on renal dialysis; Z99.2 - Dependence on renal dialysis Is this a current diagnosis for this admission?: Yes Plan: Stable and monitor. Adjust erythropoietin as needed. (5) COPD exacerbation Is this a current diagnosis for this admission?: Yes Plan: Currently on antibiotics and nebulizers mending managed by hospitalist.
[2019-10-10] MEDS: ISOSORBIDE DINITRATE 20 MG TABLET PO SCH (12:29)
[2019-10-10] MEDS: CALCITRIOL 0.25 MCG CAPSULE PO SCH (12:29)
[2019-10-10] MEDS: CETIRIZINE 10 MG TABLET PO SCH (12:29)
[2019-10-10] MEDS: MAGNESIUM OXIDE 400 MG TABLET PO SCH (12:30)
[2019-10-10] MEDS: PANTOPRAZOLE SODIUM 20 MG TABLET.DR PO SCH (12:30)
[2019-10-10] MEDS: POLYETHYLENE GLYCOL 3350 POWDER 17 GM/1 PACKET PO SCH (12:30)
[2019-10-10] MEDS: DOCUSATE SODIUM 100 MG CAPSULE PO SCH (12:30)
[2019-10-10] MEDS: ASPIRIN 81 MG TABLET, ENT COATED PO SCH (12:30)
[2019-10-10] MEDS: CALCIUM CARBONATE 500 MG TAB.CHEW PO SCH (12:31)
[2019-10-10] MEDS: METHYLPREDNISOLONE INJ 40 MG/1 ML SDV IV SCH (12:31)
[2019-10-10] MEDS: FLUTICASONE/UMECLIDIN/VILANTER 100-62.5-25 MCG/DOSE IH SCH (12:31)
[2019-10-10] MEDS ORDERED: AMOXICILLIN TRIHYDRATE 500 MG CAPSULE PO SCH (14:00)
[2019-10-10 15:08] VITALS: BP 137/61
== END 2019-10-10 15:19 | disposition home or self-care (01) | DRG 871 ==
LOC: ER 16:16 → EH 17:30 → 5 20:20 → 3W 10-08 14:39
PROVIDERS: ADMIT Hospitalist; ATTEND Internal Medicine
PROC: 5A1D70Z Performance of Urinary Filtration, Intermittent, Less than 6 Hours Per Day (ICD-10-PCS; principal; 2019-10-03)
DX: A41.9 Sepsis, unspecified organism (principal); N18.6 End stage renal disease; J96.01 Acute respiratory failure with hypoxia; J44.1 Chronic obstructive pulmonary disease with (acute) exacerbation; N39.0 Urinary tract infection, site not specified; I12.0 Hypertensive chronic kidney disease with stage 5 chronic kidney disease or end stage renal disease; B96.1 Klebsiella pneumoniae [K. pneumoniae] as the cause of diseases classified elsewhere; B95.2 Enterococcus as the cause of diseases classified elsewhere; B96.20 Unspecified Escherichia coli [E. coli] as the cause of diseases classified elsewhere; Z66 Do not resuscitate; E78.5 Hyperlipidemia, unspecified; I73.9 Peripheral vascular disease, unspecified; E83.39 Other disorders of phosphorus metabolism; D63.1 Anemia in chronic kidney disease; E83.51 Hypocalcemia; T50.8X5S Adverse effect of diagnostic agents, sequela; Z79.899 Other long term (current) drug therapy; Z79.82 Long term (current) use of aspirin; Z11.59 Encounter for screening for other viral diseases; Z85.51 Personal history of malignant neoplasm of bladder; Z85.46 Personal history of malignant neoplasm of prostate; Z95.1 Presence of aortocoronary bypass graft; Z88.1 Allergy status to other antibiotic agents; Z99.2 Dependence on renal dialysis; Z03.818 Encounter for observation for suspected exposure to other biological agents ruled out
CPT/HCPCS: 36415; 71045; 80048; 80053; 80069; 82803; 82962; 83605; 83735; 83880; 84100; 85025; 85027; 85610; 87040; 87070; 87486; 87581; 87633; 87635; 87798; 87804; 87880; 93005; 93010; 94640; 99285; J0290; J0692; J1630; J1644; J2920; J3490; J7030; J7620; Q5105

== ENCOUNTER 2019-11-23 16:51 | Inpatient (IN) | payer OTHER, MEDICARE ==
[2019-11-23 17:29] LABS: AMORPHOUS SEDIMENT,URINE TRACE /HPF; APPEARANCE,URINE CLOUDY; BILIRUBIN,URINE NEGATIVE (NEGATIVE); COLOR,URINE AMBER; GLUCOSE, URINE NEGATIVE (NEGATIVE); KETONES,URINE NEGATIVE (NEGATIVE); LEUKOCYTE ESTERASE,URINE MODERATE (NEGATIVE); NITRITE,URINE NEGATIVE (NEGATIVE); PROTEIN,URINE 100 mg/dL (NEGATIVE); URINE SPECIFIC GRAVITY 1.014
[2019-11-23] MEDS ORDERED: CEFTRIAXONE 1 GM/D5W RTU 1 GM/50 ML RTUPB IV ONE (17:32)
[2019-11-23] MEDS ORDERED: ACETAMINOPHEN 325 MG TABLET PO ONE (18:37)
[2019-11-23 18:54] LABS: ABSOLUTE BASOPHILS # (AUTO) 0.1 10^3/uL (0.0-0.2); ABSOLUTE LYMPHOCYTES (AUTO) 1.5 10^3/uL (0.5-4.7); BASOPHILS % (AUTO) 1.2 % (0-2); HEMOGLOBIN 11.3 g/dL (13.5-17.0); LYMPHOCYTES % (AUTO) 15.2 % (13-45); MEAN CORPUSCULAR HGB CONC 34.1 g/dL (32.0-36.0); TOTAL CELLS COUNTED % (AUTO) 100 %
[2019-11-23 18:57] LABS: ABSOLUTE EOSINOPHILS # (AUTO) 0.1 10^3/uL (0.0-0.6); ABSOLUTE MONOCYTES (AUTO) 0.8 10^3/uL (0.1-1.4); ABSOLUTE NEUT (AUTO) 7.2 10^3/uL (1.7-8.2); EOSINOPHILS % (AUTO) 0.7 % (0-6); MEAN CORPUSCULAR HEMOGLOBIN 31.6 pg (27.0-33.4); MEAN CORPUSCULAR VOLUME 93 fl (80-97); MONOCYTES % (AUTO) 8.6 % (3-13); PLATELET COUNT 165 10^3/uL (150-450); RED BLOOD COUNT 3.57 10^6/uL (4.35-5.55); RED CELL DISTRIBUTION WIDTH 16.2 % (11.5-14.0); SEGMENTED NEUTROPHILS % (AUTO) 74.3 % (42-78); WHITE BLOOD COUNT 9.6 10^3/uL (4.0-10.5)
[2019-11-23 19:00] LABS: INTERNATIONAL RATION (INR) 1.15; PROTHROMBIN TIME 14.8 SEC (11.4-15.4)
[2019-11-23 19:12] LABS: VENOUS BLOOD BASE EXCESS 0.7 mmol/L; VENOUS BLOOD HCO3 24.8 mmol/L (20-32); VENOUS BLOOD PCO2 37.9 mmHg (35-63); VENOUS BLOOD PH 7.43 (7.30-7.42)
[2019-11-23 19:15] LABS: ALBUMIN 3.7 g/dL (3.5-5.0); ALKALINE PHOSPHATASE 74 U/L (38-126); ANION GAP 9 (5-19); ASPARTATE AMINO TRANSFERASE 20 U/L (17-59); BILIRUBIN,DIRECT 0.2 mg/dL (0.0-0.4); BILIRUBIN,TOTAL 0.8 mg/dL (0.2-1.3); BLOOD UREA NITROGEN 56 mg/dL (7-20); CALCIUM 7.7 mg/dL (8.4-10.2); CARBON DIOXIDE 29 mmol/L (22-30); CHLORIDE 97 mmol/L (98-107); GLUCOSE 109 mg/dL (75-110); POTASSIUM 5.1 mmol/L (3.6-5.0); TOTAL PROTEIN 6.7 g/dL (6.3-8.2)
--- NOTE | 2019-11-23 19:26 | RADIOLOGY REPORT (SQ) ---
EXAM DESCRIPTION: CHEST SINGLE VIEW IMAGES COMPLETED DATE/TIME: 11/23/2019 7:11 pm REASON FOR STUDY: fever COMPARISON: 10/02/2019 EXAM PARAMETERS: NUMBER OF VIEWS: One view. TECHNIQUE: Single frontal radiographic view of the chest acquired. RADIATION DOSE: NA LIMITATIONS: None. FINDINGS: LUNGS AND PLEURA: No opacities, masses or pneumothorax. No pleural effusion. MEDIASTINUM AND HILAR STRUCTURES: No masses. Contour normal. HEART AND VASCULAR STRUCTURES: Heart normal in size. Normal vasculature. BONES: No acute findings. HARDWARE: CABG. OTHER: No other significant finding. IMPRESSION: NO ACUTE RADIOGRAPHIC FINDING IN THE CHEST. TECHNICAL DOCUMENTATION: JOB ID: [id number] 2010 [employer]- All Rights Reserved Reading location - IP/workstation name: [email or web address]
[2019-11-23] MEDS ORDERED: MAG HYDROX/AL HYDROX/SIMETH SUSP 30 ML UDCUP PO PRN (20:31)
[2019-11-23] MEDS ORDERED: IPRATROPIUM/ALBUTEROL 0.5-2.5 MG/3 ML AMPUL NEB PRN (20:31)
[2019-11-23] MEDS ORDERED: ACETAMINOPHEN 325 MG TABLET PO PRN (20:31)
--- NOTE | 2019-11-23 20:42 | ER Document Report ---
Entered by LULU DE JESUS SCRIBE 11/23/19 [id number] Acting as scribe for:SEAN TORREZ DO ED General - General Chief Complaint: Fever Stated Complaint: FEVER Time Seen by Provider: 11/23/19 17:00 Mode of Arrival: Ambulatory Information source: Patient Notes: This 79-year-old male patient presents to the emergency department today with complaints of a fever along with a slight cough for the last 2 days. Patient was seen in this emergency department on October 01, 2019 and he was admitted for 9 days for Klebsiella urosepsis. Patient is a MWF dialysis patient and he denies missing any dialysis appointments recently. Patient denies pain anywhere including chest pain or abdominal pain. Patient is somewhat confused currently so history is limited. TRAVEL OUTSIDE OF THE [place] IN LAST 30 DAYS: No - Related Data Allergies/Adverse Reactions: ciprofloxacin [From Cipro] Allergy (Verified 11/23/19 17:16) Past Medical History - Social History Smoking Status: Unknown if Ever Smoked Family History: Reviewed & Not Pertinent - No, Malignancy - Bladder cancer, has urostomy. Patient has homicidal ideation: No - Past Medical History Cardiac Medical History: Reports: Hx Congestive Heart Failure, Hx Coronary Artery Disease, Hx Hypercholesterolemia, Hx Hypertension, Hx Peripheral Vascular Disease Pulmonary Medical History: Reports: Hx COPD - Possible, Hx Pneumonia Neurological Medical History: Denies: Hx Cerebrovascular Accident, Hx Seizures Endocrine Medical History: Denies: Hx Diabetes Mellitus Type 1, Hx Diabetes Mellitus Type 2, Hx Hyperthyroidism, Hx Hypothyroidism Renal/ Medical History: Reports: Hx End Stage Renal Disease - On hemodialysis Sunday and Sunday with Dr. Cespedes.. Denies: Hx Peritoneal Dialysis Malignancy Medical History: Reports Hx Renal (Kidney) Cancer - Bladder and prostate cancer GI Medical History: Denies: Hx Cirrhosis, Hx Crohn's Disease, Hx Hepatitis, Hx Ulcerative Colitis Musculoskeletal Medical History: Denies Hx Fibromyalgia, Reports Hx Gout Skin Medical History: Denies Hx Eczema, Denies Hx Psoriasis Psychiatric Medical History: Denies: Hx Depression Infectious Medical History: Reports: Hx C-Diff - Status post fecal transplant. Denies: Hx Hepatitis Past Surgical History: Reports: Hx Cardiac Catheterization, Hx Cardiac Surgery - CABG, Hx Coronary Artery Bypass Graft, Hx Genitourinary Surgery - urostomy, Hx Orthopedic Surgery - Right hip hemiarthroplasty August 2016, Hx Urinary Tract Surgery - bladder /prostate, Hx Vascular Surgery - AAA repair, Other - Nephrostomy tube placement, creation of ileal conduit, prostatectomy - Immunizations Immunizations up to date: Yes Hx Diphtheria, Pertussis, Tetanus Vaccination: Yes Hx Pneumococcal Vaccination: 04/17/14 Review of Systems - Review of Systems Constitutional: See HPI, Fever EENT: No symptoms reported Cardiovascular: No symptoms reported Respiratory: See HPI, Cough Gastrointestinal: denies: Abdominal pain Genitourinary: No symptoms reported Male Genitourinary: No symptoms reported Musculoskeletal: No symptoms reported Skin: No symptoms reported Hematologic/Lymphatic: No symptoms reported Neurological/Psychological: No symptoms reported -: Yes All other systems reviewed and negative Physical Exam - Vital signs Vitals: Temp Pulse Resp BP Pulse Ox 100.0 F 72 18 128/54 H 96 11/23/19 17:16 11/23/19 17:16 11/23/19 17:16 11/23/19 17:16 11/23/19 17:16 - Notes Notes: Physical Exam: General: Drowsy but arousable, somewhat confused. HEENT: Normocephalic. Atraumatic. PERRL. Extraocular movements intact. Oropharynx clear. Neck: Supple. Non-tender. Respiratory: No respiratory distress. Clear and equal breath sounds bilaterally. Cardiovascular: Regular rate and rhythm. Abdominal: Normal Inspection. Non-tender. No distension. Normal Bowel Sounds. Back: No gross abnormalities. Extremities: Moves all four extremities. Upper extremities: Normal inspection. Normal ROM. Lower extremities: Normal inspection. No edema. Normal ROM. Neurological: Awake, alert, oriented to person and place. Psychological: Normal affect. Normal Mood. Skin: Hot to the touch. Dry. Normal color. Course - Re-evaluation Re-evalutation: 11/23/19 19:25 Patient is a 79-year-old male who comes in with a fever and confusion. History of urosepsis as recently as September. Patient denies any pain. Has a chronic cough. Receive dialysis this week, Sunday and did not miss any appointments. He is confused and febrile here in the emergency department. Blood and urine cultures have been sent. Old cultures reviewed and ceftriaxone given based on previous susceptibilities. Spoke to the patient's son. Son mentions that the patient was alone lives alone and he has nervous about bringing the patient home tonight due to the recent confusion. Collateral information was also given from the son regarding the patient's dialysis scheduling and visits. 11/23/19 20:[address] Castillo who agrees to admit the patient to tele. Stable at the time of admission - Vital Signs Vital signs: Temp Pulse Resp BP Pulse Ox 97.5 F 70 18 128/59 H 96 11/23/19 22:00 11/23/19 22:00 11/23/19 22:00 11/23/19 22:00 11/23/19 22:00 - Laboratory Result Diagrams: 11/23/19 18:28 11/23/19 18:28 Laboratory results interpreted by me: 11/23/19 11/23/19 11/23/19 17:04 18:28 18:28 RBC 3.57 L Hgb 11.3 L Hct 33.0 L RDW 16.2 H VBG pH Sodium 134.8 L Potassium 5.1 H Chloride 97 L BUN 56 H Creatinine 6.80 H Est GFR ( Amer) 10 L Est GFR (MDRD) Non-Af 8 L Calcium 7.7 L Urine Protein 100 H Urine Blood SMALL H Urine Urobilinogen 2.0 H Ur Leukocyte Esterase MODERATE H 11/23/19 18:46 RBC Hgb Hct RDW VBG pH 7.43 H Sodium Potassium Chloride BUN Creatinine Est GFR ( Amer) Est GFR (MDRD) Non-Af Calcium Urine Protein Urine Blood Urine Urobilinogen Ur Leukocyte Esterase - Diagnostic Test Radiology reviewed: Reports reviewed Discharge - Discharge Clinical Impression: Acute encephalopathy, Acute UTI (urinary tract infection) Condition: Stable Disposition: ADMITTED INPATIENT Admitting Provider: Jonathan (Hospitalist) Unit Admitted: Telemetry I personally performed the services described in the documentation, reviewed and edited the documentation which was dictated to the scribe in my presence, and it accurately records my words and actions.
[2019-11-23] MEDS ORDERED: MIDODRINE HCL 5 MG TABLET PO ONE (22:00)
[2019-11-23] MEDS: HEPARIN SOD (PORCINE) 5,000 UNIT/ML 1 ML VIAL SUBCUT SCH (23:08)
[2019-11-23] MEDS: NORMAL SALINE 1000 ML 1,000 ML IV PRN (23:09)
--- NOTE | 2019-11-24 03:40 | PDOC H&P ---
History of Present Illness Admission Date/PCP: 11/23/19 20:45 [facility] Patient complains of: Confusion History of Present Illness: TYLOR JIMENEZ is a 79 year old male with a past medical history of oxygen dependent COPD, hypertension, coronary artery disease, congestive heart failure, prostate and bladder cancer status post urostomy and recurrent urinary tract infection. In addition to nonoliguric end-stage renal failure on hemodialysis Sunday. He presents with 2 days of fever and confusion prompting evaluation emergency room where he is found to have a fever of 100.1 but an otherwise benign work-up he is referred to the hospitalist for admission. Patient is awake alert oriented x3. Denying missed dialysis appointments. Past Medical History Cardiac Medical History: Reports: Congestive Heart Failure, Coronary Artery Disease, Hyperlipidema, Hypertension, Peripheral Vascular Disease Pulmonary Medical History: Reports: Chronic Obstructive Pulmonary Disease (COPD) - Possible, Pneumonia Neurological Medical History: Denies: Seizures Endocrine Medical History: Denies: Diabetes Mellitus Type 1, Diabetes Mellitus Type 2, Hyperthyroidism, Hypothyroidism Renal/ Medical History: Reports: End Stage Renal Disease - On hemodialysis Sunday and Sunday with Dr. Cespedes. 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 Past Surgical History Past Surgical History: Reports: Cardiac Catheterization, Coronary Artery Bypass Graft, Orthopedic Surgery - Right hip hemiarthroplasty August 2016, Vascular Surgery - AAA repair, Other - Nephrostomy tube placement, creation of ileal conduit, prostatectomy Social History Information Source: Patient, [facility] Records Smoking Status: Unknown if Ever Smoked Frequency of Alcohol Use: None Hx Recreational Drug Use: No Drugs: None Hx Prescription Drug Abuse: No - Advance Directive Resuscitation Status: Full Code Family History Family History: Malignancy - Bladder cancer, has urostomy. Parental Family History Reviewed: Yes Children Family History Reviewed: Yes Sibling(s) Family History Reviewed.: Yes Medication/Allergy Home Medications: Calcium Carbonate [Tums Chewable 500 mg Tab.chew] 500 mg PO DAILY 04/17/18 Folic Acid/Vitamin B Comp W-C [Nephrocaps Multiple Vitamin Capsule] 1 cap PO QHS 04/17/18 Magnesium Oxide [Mag-Ox 400 mg Tablet] 400 mg PO DAILY 04/17/18 Omeprazole 20 mg PO DAILY 04/17/18 Sodium Bicarbonate [Sodium Bicarbonate 650 mg Tablet] 650 mg PO Q12 04/17/18 Aspirin [Ecotrin 81 mg EC Tablet] 81 mg PO QHS tabec 09/17/18 Isosorbide Dinitrate [Isordil Titradose 20 mg Tablet] 20 mg PO Q12 01/15/19 Cetirizine HCl [Zyrtec 10 mg Tablet] 1 tab PO DAILY 04/22/19 Atorvastatin Calcium [Lipitor 20 mg Tablet] 20 mg PO QHS tablet 04/29/19 Calcitriol [Rocaltrol 0.25 mcg Capsule] 0.25 mcg PO DAILY 10/01/19 Colchicine [Colcrys 0.6 mg Tablet] 0.6 mg PO DAILYP PRN 10/01/19 Midodrine HCl [Proamatine 5 mg Tablet] 5 mg PO MOWEFR@1000 10/01/19 Saccharomyces Boulardii [Probiotic] 1 cap PO DAILY 10/01/19 Amoxicillin Trihydrate [Amoxil 500 mg Capsule] 500 mg PO Q8 #21 capsule 10/10/19 Allergies/Adverse Reactions: ciprofloxacin [From Cipro] Allergy (Verified 11/23/19 17:16) Review of Systems Constitutional: PRESENT: as per HPI, chills, fatigue. ABSENT: fever(s), headache(s), weight gain, weight loss Eyes: ABSENT: visual disturbances Ears: ABSENT: hearing changes Cardiovascular: ABSENT: chest pain, dyspnea on exertion, edema, orthropnea, palpitations Respiratory: ABSENT: cough, hemoptysis Gastrointestinal: ABSENT: abdominal pain, constipation, diarrhea, hematemesis, hematochezia, nausea, vomiting Genitourinary: ABSENT: dysuria, hematuria Musculoskeletal: ABSENT: joint swelling Integumentary: ABSENT: rash, wounds Neurological: ABSENT: abnormal gait, abnormal speech, confusion, dizziness, focal weakness, syncope Psychiatric: ABSENT: anxiety, depression, homidical ideation, suicidal ideation Endocrine: ABSENT: cold intolerance, heat intolerance, polydipsia, polyuria Hematologic/Lymphatic: ABSENT: easy bleeding, easy bruising Physical Exam Vital Signs: Temp Pulse Resp BP Pulse Ox 97.4 F 62 16 120/46 L 96 11/23/19 22:44 11/23/19 22:44 11/23/19 22:44 11/23/19 22:44 11/23/19 22:44 Intake & Output 11/22/19 11/23/19 11/24/19 11:59 11:59 11:59 Intake Total 50 Balance 50 Weight 80.2 kg General appearance: PRESENT: no acute distress, well-developed, well-nourished Head exam: PRESENT: atraumatic, normocephalic Eye exam: PRESENT: conjunctiva pink, EOMI, PERRLA. ABSENT: scleral icterus Ear exam: PRESENT: normal external ear exam Mouth exam: PRESENT: moist, tongue midline Neck exam: ABSENT: carotid bruit, JVD, lymphadenopathy, thyromegaly Respiratory exam: PRESENT: clear to auscultation jenni. ABSENT: rales, rhonchi, wheezes Cardiovascular exam: PRESENT: RRR. ABSENT: diastolic murmur, rubs, systolic murmur Pulses: PRESENT: normal dorsalis pedis pul Vascular exam: PRESENT: normal capillary refill GI/Abdominal exam: PRESENT: normal bowel sounds, soft. ABSENT: distended, guarding, mass, organolmegaly, rebound, tenderness Rectal exam: PRESENT: deferred Extremities exam: PRESENT: full ROM. ABSENT: calf tenderness, clubbing, pedal edema Neurological exam: PRESENT: alert, awake, oriented to person, oriented to place, oriented to time, oriented to situation, CN II-XII grossly intact. ABSENT: motor sensory deficit Psychiatric exam: PRESENT: appropriate affect, normal mood. ABSENT: homicidal ideation, suicidal ideation Skin exam: PRESENT: dry, intact, warm. ABSENT: cyanosis, rash Results Laboratory Results: 11/23/19 18:28 11/23/19 18:28 11/23/19 11/23/19 11/23/19 17:04 18:28 18:28 WBC 9.6 RBC 3.57 L Hgb 11.3 L Hct 33.0 L MCV 93 MCH 31.6 MCHC 34.1 RDW 16.2 H Plt Count 165 Seg Neutrophils % 74.3 VBG pH VBG pCO2 VBG HCO3 VBG Base Excess Sodium 134.8 L Potassium 5.1 H Chloride 97 L Carbon Dioxide 29 Anion Gap 9 BUN 56 H Creatinine 6.80 H Est GFR ( Amer) 10 L Glucose 109 Lactic Acid Calcium 7.7 L Total Bilirubin 0.8 AST 20 Alkaline Phosphatase 74 Total Protein 6.7 Albumin 3.7 Urine Color HAJA Urine Appearance CLOUDY Urine pH 7.0 Ur Specific [place] 1.014 Urine Protein 100 H Urine Glucose (UA) NEGATIVE Urine Ketones NEGATIVE Urine Blood SMALL H Urine Nitrite NEGATIVE Ur Leukocyte Esterase MODERATE H Urine WBC (Auto) 8 Urine RBC (Auto) 3 11/23/19 11/23/19 11/23/19 18:28 18:46 20:45 WBC RBC Hgb Hct MCV MCH MCHC RDW Plt Count Seg Neutrophils % VBG pH 7.43 H VBG pCO2 37.9 VBG HCO3 24.8 VBG Base Excess 0.7 Sodium Potassium Chloride Carbon Dioxide Anion Gap BUN Creatinine Est GFR ( Amer) Glucose Lactic Acid 0.9 0.6 L Calcium Total Bilirubin AST Alkaline Phosphatase Total Protein Albumin Urine Color Urine Appearance Urine pH Ur Specific [place] Urine Protein Urine Glucose (UA) Urine Ketones Urine Blood Urine Nitrite Ur Leukocyte Esterase Urine WBC (Auto) Urine RBC (Auto) 11/23/19 23:47 WBC RBC Hgb Hct MCV MCH MCHC RDW Plt Count Seg Neutrophils % VBG pH VBG pCO2 VBG HCO3 VBG Base Excess Sodium Potassium Chloride Carbon Dioxide Anion Gap BUN Creatinine Est GFR ( Amer) Glucose Lactic Acid 0.9 Calcium Total Bilirubin AST Alkaline Phosphatase Total Protein Albumin Urine Color Urine Appearance Urine pH Ur Specific [place] Urine Protein Urine Glucose (UA) Urine Ketones Urine Blood Urine Nitrite Ur Leukocyte Esterase Urine WBC (Auto) Urine RBC (Auto) Impressions: Chest X-Ray 11/23/19 17:32 IMPRESSION: NO ACUTE RADIOGRAPHIC FINDING IN THE CHEST. Assessment and Plan - Diagnosis (1) Acute UTI (urinary tract infection) Is this a current diagnosis for this admission?: Yes Plan: Recent history of pansensitive Klebsiella bacteremia from UTI. Rocephin initiated, follow-up CBC, blood and urine culture (2) Encephalopathy acute Is this a current diagnosis for this admission?: Yes Plan: Likely secondary to #1, resolved (3) ESRD (end stage renal disease) on dialysis Is this a current diagnosis for this admission?: Yes Plan: Mild hyperkalemia without peak T waves, no evidence for overload, follow-up nephrology consult. - Time Time Spent with patient: 25-34 minutes
[2019-11-24 05:45] LABS: ABSOLUTE EOSINOPHILS # (AUTO) 0.2 10^3/uL (0.0-0.6); ABSOLUTE LYMPHOCYTES (AUTO) 1.1 10^3/uL (0.5-4.7); ABSOLUTE MONOCYTES (AUTO) 0.7 10^3/uL (0.1-1.4); ABSOLUTE NEUT (AUTO) 6.4 10^3/uL (1.7-8.2); BASOPHILS % (AUTO) 0.6 % (0-2); EOSINOPHILS % (AUTO) 2.1 % (0-6); HEMATOCRIT 32.4 % (37.9-51.0); HEMOGLOBIN 11.1 g/dL (13.5-17.0); LYMPHOCYTES % (AUTO) 12.8 % (13-45); MEAN CORPUSCULAR HEMOGLOBIN 31.8 pg (27.0-33.4); MEAN CORPUSCULAR HGB CONC 34.4 g/dL (32.0-36.0); MEAN CORPUSCULAR VOLUME 93 fl (80-97); MONOCYTES % (AUTO) 7.8 % (3-13); PLATELET COUNT 147 10^3/uL (150-450); RED CELL DISTRIBUTION WIDTH 15.7 % (11.5-14.0); SEGMENTED NEUTROPHILS % (AUTO) 76.7 % (42-78); TOTAL CELLS COUNTED % (AUTO) 100 %; WHITE BLOOD COUNT 8.4 10^3/uL (4.0-10.5)
[2019-11-24 06:04] LABS: ANION GAP 11 (5-19); BLOOD UREA NITROGEN 63 mg/dL (7-20); CALCIUM 7.5 mg/dL (8.4-10.2); CARBON DIOXIDE 25 mmol/L (22-30); CHLORIDE 99 mmol/L (98-107); GLUCOSE 96 mg/dL (75-110); POTASSIUM 4.8 mmol/L (3.6-5.0)
[2019-11-24] MEDS: HEPARIN SOD (PORCINE) 5,000 UNIT/ML 1 ML VIAL SUBCUT SCH ×3 (06:08→21:45)
[2019-11-24] MEDS ORDERED: ACETAMINOPHEN 325 MG TABLET PO PRN (09:42)
[2019-11-24] MEDS: MIDODRINE HCL 5 MG TABLET PO SCH ×2 (12:16→17:11)
[2019-11-24] MEDS: DOCUSATE SODIUM 100 MG CAPSULE PO SCH ×2 (12:17→17:12)
--- NOTE | 2019-11-24 13:12 | PDOC CONSULTATION ---
Consultation Consult Date: 11/24/19 Provider Consulted: Debbi RYAN Consult reason:: ESRD for hemodialysis History of Present Illness Admission Date/PCP: 11/23/19 20:45 [facility] History of Present Illness: TYLOR JIMENEZ is a 79 year old male with a past medical history of ESRD on hemodialysis, oxygen dependent COPD, hypertension, coronary artery disease, congestive heart failure, prostate and bladder cancer status post urostomy and recurrent urinary tract infection. He was admitted with history of altered mental status and a 2 to 3-day history of fever. Evaluations in the ER revealed that he has UTI. Currently undergoing dialysis without any issues. Presently he is doing very well and he is almost regained his usual mental state. He is aware of her surroundings and answers questions appropriately. And medications were reviewed. Dialysis orders were reviewed with the treating dialysis nurse. Past Medical History Cardiac Medical History: Reports: Coronary Artery Disease, Hyperlipidemia, Hypertension-primary, Peripheral Vascular Disease Pulmonary Medical History: Reports: Chronic Obstructive Pulmonary Disease (COPD) - Possible, Pneumonia Neurological Medical History: Denies: Seizures Endocrine Medical History: Denies: Diabetes Mellitus Type 1, Diabetes Mellitus Type 2, Hyperthyroidism, Hypothyroidism Renal/ Medical History: Reports: End Stage Renal Disease - On hemodialysis Sunday and Sunday with Dr. Cespedes., Hyperphosphatemia, Metabolic Acidosis, Recurrent UTI, Secondary Hyperparathyroidism Malignancy Medical History: Reports: Renal (Kidney) Cancer - Bladder and prostate cancer GI Medical History: Denies: Cirrhosis, Crohn's Disease, Hepatitis, Ulcerative Colitis Musculoskeltal Medical History: Reports: Gout Denies: Fibromyalgia Skin Medical History: Denies: Eczema, Psoriasis Psychiatric Medical History: Denies: Depression Infectious Medical History: Reports: 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 Past Surgical History Past Surgical History: Reports: Cardiac Catheterization, Coronary Artery Bypass Graft, Cystectomy - With urostomy bag in the right lower quadrant, Dialysis Access Surgery AVF, Orthopedic Surgery - Right hip hemiarthroplasty August 2016, Vascular Surgery - AAA repair, Other - Nephrostomy tube placement, creation of ileal conduit, prostatectomy Social History Smoking Status: Unknown if Ever Smoked Frequency of Alcohol Use: None Hx Recreational Drug Use: No Drugs: None Hx Prescription Drug Abuse: No - Advance Directive Resuscitation Status: Full Code Family History Parental Family History Reviewed: Yes - Negative for ESRD Children Family History Reviewed: No Sibling(s) Family History Reviewed.: No Medication/Allergy Home Medications: Calcium Carbonate [Tums Chewable 500 mg Tab.chew] 500 mg PO DAILY 04/17/18 Folic Acid/Vitamin B Comp W-C [Nephrocaps Multiple Vitamin Capsule] 1 cap PO QHS 04/17/18 Magnesium Oxide [Mag-Ox 400 mg Tablet] 400 mg PO DAILY 04/17/18 Omeprazole 20 mg PO DAILY 04/17/18 Sodium Bicarbonate [Sodium Bicarbonate 650 mg Tablet] 650 mg PO Q12 04/17/18 Aspirin [Ecotrin 81 mg EC Tablet] 81 mg PO QHS tabec 09/17/18 Isosorbide Dinitrate [Isordil Titradose 20 mg Tablet] 20 mg PO Q12 01/15/19 Cetirizine HCl [Zyrtec 10 mg Tablet] 1 tab PO DAILY 04/22/19 Atorvastatin Calcium [Lipitor 20 mg Tablet] 20 mg PO QHS tablet 04/29/19 Calcitriol [Rocaltrol 0.25 mcg Capsule] 0.25 mcg PO DAILY 10/01/19 Colchicine [Colcrys 0.6 mg Tablet] 0.6 mg PO DAILYP PRN 10/01/19 Midodrine HCl [Proamatine 5 mg Tablet] 5 mg PO MOWEFR@1000 10/01/19 Saccharomyces Boulardii [Probiotic] 1 cap PO DAILY 10/01/19 Amoxicillin Trihydrate [Amoxil 500 mg Capsule] 500 mg PO Q8 #21 capsule 10/10/19 Allergies/Adverse Reactions: ciprofloxacin [From Cipro] Allergy (Verified 11/23/19 17:16) Review of Systems Constitutional: PRESENT: fatigue, weakness. ABSENT: chills, fever(s), headache(s), night sweats Nose, Mouth, and Throat: ABSENT: mouth pain, sore throat Cardiovascular: ABSENT: chest pain, dyspnea on exertion, edema, orthropnea, palpitations Gastrointestinal: ABSENT: abdominal pain, bloating, diarrhea, dysphagia, heartburn, hematemesis, hematochezia Genitourinary: ABSENT: dysuria, hematuria Musculoskeletal: ABSENT: joint swelling Integumentary: ABSENT: lesions, pruritus, rash Neurological: ABSENT: abnormal movements, abnormal speech, confusion, focal weakness, frequent falls Hematologic/Lymphatic: ABSENT: easy bleeding, lymphadenopathy Physical Exam Vital Signs: Temp Pulse Resp BP Pulse Ox 98.8 F 95 20 131/57 H 94 11/24/19 11:43 11/24/19 11:43 11/24/19 11:43 11/24/19 11:43 11/24/19 07:26 Intake & Output 11/23/19 11/24/19 11/25/19 06:59 06:59 06:59 Intake Total 50 Output Total 175 Balance -125 Weight 80.2 kg General appearance: PRESENT: no acute distress Eye exam: PRESENT: EOMI, PERRLA. ABSENT: scleral icterus Ear exam: PRESENT: normal external ear exam Mouth exam: PRESENT: moist, neck supple Neck exam: ABSENT: lymphadenopathy, meningismus, tenderness, thyromegaly, tracheal deviation Respiratory exam: PRESENT: clear to auscultation jenni. ABSENT: crackles Cardiovascular exam: PRESENT: +S1, +S2 GI/Abdominal exam: PRESENT: normal bowel sounds, soft. ABSENT: organomegaly, tenderness Neurological exam: PRESENT: alert, awake, oriented to person, oriented to place Psychiatric exam: PRESENT: appropriate affect Results Laboratory Results: 11/24/19 04:45 11/24/19 04:45 11/23/19 11/23/19 11/23/19 17:04 18:28 18:28 WBC 9.6 RBC 3.57 L Hgb 11.3 L Hct 33.0 L MCV 93 MCH 31.6 MCHC 34.1 RDW 16.2 H Plt Count 165 Seg Neutrophils % 74.3 VBG pH VBG pCO2 VBG HCO3 VBG Base Excess Sodium 134.8 L Potassium 5.1 H Chloride 97 L Carbon Dioxide 29 Anion Gap 9 BUN 56 H Creatinine 6.80 H Est GFR ( Amer) 10 L Glucose 109 Lactic Acid Calcium 7.7 L Total Bilirubin 0.8 AST 20 Alkaline Phosphatase 74 Total Protein 6.7 Albumin 3.7 Urine Color HAJA Urine Appearance CLOUDY Urine pH 7.0 Ur Specific [place] 1.014 Urine Protein 100 H Urine Glucose (UA) NEGATIVE Urine Ketones NEGATIVE Urine Blood SMALL H Urine Nitrite NEGATIVE Ur Leukocyte Esterase MODERATE H Urine WBC (Auto) 8 Urine RBC (Auto) 3 11/23/19 11/23/19 11/23/19 18:28 18:46 20:45 WBC RBC Hgb Hct MCV MCH MCHC RDW Plt Count Seg Neutrophils % VBG pH 7.43 H VBG pCO2 37.9 VBG HCO3 24.8 VBG Base Excess 0.7 Sodium Potassium Chloride Carbon Dioxide Anion Gap BUN Creatinine Est GFR ( Amer) Glucose Lactic Acid 0.9 0.6 L Calcium Total Bilirubin AST Alkaline Phosphatase Total Protein Albumin Urine Color Urine Appearance Urine pH Ur Specific [place] Urine Protein Urine Glucose (UA) Urine Ketones Urine Blood Urine Nitrite Ur Leukocyte Esterase Urine WBC (Auto) Urine RBC (Auto) 11/23/19 11/24/19 11/24/19 23:47 04:45 04:45 WBC 8.4 RBC 3.50 L Hgb 11.1 L Hct 32.4 L MCV 93 MCH 31.8 MCHC 34.4 RDW 15.7 H Plt Count 147 L Seg Neutrophils % 76.7 VBG pH VBG pCO2 VBG HCO3 VBG Base Excess Sodium 135.3 L Potassium 4.8 Chloride 99 Carbon Dioxide 25 Anion Gap 11 BUN 63 H Creatinine 6.78 H Est GFR ( Amer) 10 L Glucose 96 Lactic Acid 0.9 Calcium 7.5 L Total Bilirubin AST Alkaline Phosphatase Total Protein Albumin Urine Color Urine Appearance Urine pH Ur Specific [place] Urine Protein Urine Glucose (UA) Urine Ketones Urine Blood Urine Nitrite Ur Leukocyte Esterase Urine WBC (Auto) Urine RBC (Auto) Impressions: Chest X-Ray 11/23/19 17:32 IMPRESSION: NO ACUTE RADIOGRAPHIC FINDING IN THE CHEST. Assessment & Plan - Diagnosis (1) Acute UTI (urinary tract infection) Is this a current diagnosis for this admission?: Yes Plan: Currently on antibiotics cultures pending. (2) Encephalopathy acute Is this a current diagnosis for this admission?: Yes Plan: Markedly improved.Being managed by hospitalist. (3) ESRD (end stage renal disease) on dialysis Is this a current diagnosis for this admission?: Yes Plan: Currently undergoing dialysis without any issues. Vital signs are stable. Dialysis being supervised to ensure safe and smooth procedure. Plan to remove 1-2 L as tolerated. Dialysis orders were reviewed with the treating dialysis nurse. (4) Hypertension Qualifiers: Hypertension type: essential hypertension Qualified Code(s): I10 - Essent ial (primary) hypertension Plan: Stable. Monitor.
--- NOTE | 2019-11-24 17:07 | PDOC PROGRESS REPORT ---
Subjective Progress Note for:: 11/24/19 Subjective:: TYLOR JIMENEZ is a 79 year old male with a past medical history of oxygen dependent COPD, hypertension, coronary artery disease, congestive heart failure, prostate and bladder cancer status post urostomy and recurrent urinary tract infection who was admitted 11/23/2027 with acute metabolic encephalopathy secondary to urinary tract infection. Patient was seen on morning rounds after returning to his room from dialysis. He was sleeping when I entered the room but woke easily when I said his name. He is quite fatigued and falls back to sleep during our conversation. He is noted to be alert and oriented to self and place, conversational and socially appropriate. Other than reporting that he is tired, he denies all concerns. He specifically denies chest pain, shortness of breath, abdominal pain, and nausea. He is appears to be comfortable and is not noted to be in any acute distress. Reason For Visit: SEPSIS,UTI AMS ESRD Physical Exam Vital Signs: Temp Pulse Resp BP Pulse Ox 98.8 F 88 20 131/57 H 94 11/24/19 11:43 11/24/19 14:00 11/24/19 11:43 11/24/19 11:43 11/24/19 07:26 Intake & Output 11/23/19 11/24/19 11/25/19 06:59 06:59 06:59 Intake Total 50 Output Total 175 2600 Balance -125 -2600 Weight 80.2 kg General appearance: PRESENT: no acute distress, cooperative, hard of hearing, well-developed, well-nourished Head exam: PRESENT: atraumatic, normocephalic Eye exam: PRESENT: conjunctiva pink, EOMI, PERRLA. ABSENT: scleral icterus Mouth exam: PRESENT: moist, tongue midline Respiratory exam: PRESENT: clear to auscultation jenni, symmetrical, unlabored. ABSENT: rales, rhonchi, wheezes Cardiovascular exam: PRESENT: RRR. ABSENT: diastolic murmur, rubs, systolic murmur Pulses: PRESENT: normal dorsalis pedis pul Vascular exam: PRESENT: normal capillary refill GI/Abdominal exam: PRESENT: normal bowel sounds, soft. ABSENT: distended, guarding, mass, organolmegaly, rebound, tenderness Rectal exam: PRESENT: deferred Extremities exam: PRESENT: full ROM. ABSENT: calf tenderness, clubbing, pedal edema Neurological exam: PRESENT: alert, awake, oriented to person, oriented to place, oriented to situation, CN II-XII grossly intact. ABSENT: motor sensory deficit Psychiatric exam: PRESENT: appropriate affect, normal mood. ABSENT: homicidal ideation, suicidal ideation Skin exam: PRESENT: dry, intact, warm. ABSENT: cyanosis, rash Results Laboratory Results: 11/24/19 04:45 11/24/19 04:45 11/23/19 11/23/19 11/23/19 17:04 18:28 18:28 WBC 9.6 RBC 3.57 L Hgb 11.3 L Hct 33.0 L MCV 93 MCH 31.6 MCHC 34.1 RDW 16.2 H Plt Count 165 Seg Neutrophils % 74.3 VBG pH VBG pCO2 VBG HCO3 VBG Base Excess Sodium 134.8 L Potassium 5.1 H Chloride 97 L Carbon Dioxide 29 Anion Gap 9 BUN 56 H Creatinine 6.80 H Est GFR ( Amer) 10 L Glucose 109 Lactic Acid Calcium 7.7 L Total Bilirubin 0.8 AST 20 Alkaline Phosphatase 74 Total Protein 6.7 Albumin 3.7 Urine Color HAJA Urine Appearance CLOUDY Urine pH 7.0 Ur Specific [place] 1.014 Urine Protein 100 H Urine Glucose (UA) NEGATIVE Urine Ketones NEGATIVE Urine Blood SMALL H Urine Nitrite NEGATIVE Ur Leukocyte Esterase MODERATE H Urine WBC (Auto) 8 Urine RBC (Auto) 3 11/23/19 11/23/19 11/23/19 18:28 18:46 20:45 WBC RBC Hgb Hct MCV MCH MCHC RDW Plt Count Seg Neutrophils % VBG pH 7.43 H VBG pCO2 37.9 VBG HCO3 24.8 VBG Base Excess 0.7 Sodium Potassium Chloride Carbon Dioxide Anion Gap BUN Creatinine Est GFR ( Amer) Glucose Lactic Acid 0.9 0.6 L Calcium Total Bilirubin AST Alkaline Phosphatase Total Protein Albumin Urine Color Urine Appearance Urine pH Ur Specific [place] Urine Protein Urine Glucose (UA) Urine Ketones Urine Blood Urine Nitrite Ur Leukocyte Esterase Urine WBC (Auto) Urine RBC (Auto) 11/23/19 11/24/19 11/24/19 23:47 04:45 04:45 WBC 8.4 RBC 3.50 L Hgb 11.1 L Hct 32.4 L MCV 93 MCH 31.8 MCHC 34.4 RDW 15.7 H Plt Count 147 L Seg Neutrophils % 76.7 VBG pH VBG pCO2 VBG HCO3 VBG Base Excess Sodium 135.3 L Potassium 4.8 Chloride 99 Carbon Dioxide 25 Anion Gap 11 BUN 63 H Creatinine 6.78 H Est GFR ( Amer) 10 L Glucose 96 Lactic Acid 0.9 Calcium 7.5 L Total Bilirubin AST Alkaline Phosphatase Total Protein Albumin Urine Color Urine Appearance Urine pH Ur Specific [place] Urine Protein Urine Glucose (UA) Urine Ketones Urine Blood Urine Nitrite Ur Leukocyte Esterase Urine WBC (Auto) Urine RBC (Auto) Impressions: Chest X-Ray 11/23/19 17:32 IMPRESSION: NO ACUTE RADIOGRAPHIC FINDING IN THE CHEST. Assessment and Plan - Diagnosis (1) Acute UTI (urinary tract infection) Is this a current diagnosis for this admission?: Yes Plan: Recent history of pansensitive Klebsiella bacteremia from UTI. Urinalysis suggests UTI. Blood and Urine Cultures are pending. Patient is admitted to the medical floor. Empirically placed on Rocephin (2) Encephalopathy acute Is this a current diagnosis for this admission?: Yes Plan: Likely secondary to #1, resolved (3) COPD (chronic obstructive pulmonary disease) Qualifiers: COPD type: unspecified COPD Qualified Code(s): J44.9 - Chronic obstructive pulmonary disease, unspecified Is this a current diagnosis for this admission?: Yes Plan: Without exacerbation. Continue home dose Zyrtec. DuoNeb as needed Supplemental oxygen to maintain saturations >89% No indications for steroid therapy at this time. (4) End-stage renal disease on hemodialysis Is this a current diagnosis for this admission?: Yes Plan: Nephrology is consulted. Dialysis per their expertise. Continue home dose Vit B complex, Magnesium, Bicarb, Calcium (5) Chronic respiratory failure Is this a current diagnosis for this admission?: Yes Plan: Patient is home O2 dependent r/t CHF and COPD Continue supplemental oxygen as needed to maintain saturations >89% - Time Time Spent with patient: 25-34 minutes Anticipated discharge: Home Within: within 48 hours
[2019-11-24] MEDS: CEFTRIAXONE 1 GM/D5W RTU 1 GM/50 ML RTUPB IV SCH (17:12)
[2019-11-24] MEDS: NORMAL SALINE 1000 ML 1,000 ML IV PRN (19:00)
[2019-11-24] MEDS: VITAMIN B COMPLEX TABLET PO SCH (21:45)
[2019-11-24] MEDS: SODIUM BICARBONATE 650 MG TABLET PO SCH (21:45)
[2019-11-24] MEDS: ASPIRIN 81 MG TABLET, ENT COATED PO SCH (21:45)
[2019-11-24] MEDS: ATORVASTATIN CALCIUM 20 MG TABLET PO SCH (21:45)
[2019-11-24] MEDS: ISOSORBIDE DINITRATE 20 MG TABLET PO SCH (21:48)
[2019-11-24] MEDS ORDERED: FOLIC ACID PO SCH (22:00)
[2019-11-24] MEDS ORDERED: [UNRECOGNIZED DRUG - OTHER] PO SCH (22:00)
[2019-11-24] MEDS ORDERED: VITAMIN B COMP W C PO SCH (22:00)
[2019-11-25 05:48] LABS: HEMOGLOBIN 10.9 g/dL (13.5-17.0); MEAN CORPUSCULAR HEMOGLOBIN 31.8 pg (27.0-33.4); MEAN CORPUSCULAR VOLUME 94 fl (80-97); PLATELET COUNT 158 10^3/uL (150-450); RED BLOOD COUNT 3.42 10^6/uL (4.35-5.55); RED CELL DISTRIBUTION WIDTH 15.4 % (11.5-14.0); WHITE BLOOD COUNT 6.9 10^3/uL (4.0-10.5)
[2019-11-25] MEDS: HEPARIN SOD (PORCINE) 5,000 UNIT/ML 1 ML VIAL SUBCUT SCH ×3 (05:51→21:24)
[2019-11-25 06:05] LABS: ANION GAP 9 (5-19); BLOOD UREA NITROGEN 46 mg/dL (7-20); CALCIUM 7.5 mg/dL (8.4-10.2); CARBON DIOXIDE 28 mmol/L (22-30); CHLORIDE 100 mmol/L (98-107); GLUCOSE 99 mg/dL (75-110); POTASSIUM 4.2 mmol/L (3.6-5.0)
[2019-11-25] MEDS: DOCUSATE SODIUM 100 MG CAPSULE PO SCH ×2 (09:27→17:33)
[2019-11-25] MEDS: CALCIUM CARBONATE 500 MG TAB.CHEW PO SCH (09:29)
[2019-11-25] MEDS: MIDODRINE HCL 5 MG TABLET PO SCH ×2 (09:30→17:34)
[2019-11-25] MEDS: PANTOPRAZOLE SODIUM 20 MG TABLET.DR PO SCH (09:30)
[2019-11-25] MEDS: CETIRIZINE 10 MG TABLET PO SCH (09:30)
[2019-11-25] MEDS: SODIUM BICARBONATE 650 MG TABLET PO SCH ×2 (09:30→21:23)
[2019-11-25] MEDS: ISOSORBIDE DINITRATE 20 MG TABLET PO SCH ×2 (09:47→21:24)
[2019-11-25] MEDS: MAGNESIUM OXIDE 400 MG TABLET PO SCH (09:47)
--- NOTE | 2019-11-25 16:29 | PDOC PROGRESS REPORT ---
Subjective Progress Note for:: 11/25/19 Reason For Visit: SEPSIS,UTI AMS ESRD Patient originally admitted to the hospital for this UTI and altered mental status with end-stage renal disease , dementia Physical Exam Vital Signs: Temp Pulse Resp BP Pulse Ox 98.4 F 66 18 106/47 L 93 11/25/19 11:34 11/25/19 14:01 11/25/19 14:01 11/25/19 11:34 11/25/19 14:01 Intake & Output 11/24/19 11/25/19 11/26/19 06:59 06:59 06:59 Intake Total 50 2730 30 Output Total 175 2800 Balance -125 -70 30 Weight 80.2 kg 77.2 kg General appearance: PRESENT: no acute distress, other - Dementia? Respiratory exam: PRESENT: clear to auscultation jenni. ABSENT: rales, rhonchi, wheezes Cardiovascular exam: PRESENT: RRR. ABSENT: diastolic murmur, rubs, systolic murmur Neurological exam: PRESENT: alert, awake, oriented to person, oriented to place, oriented to time, oriented to situation, CN II-XII grossly intact. ABSENT: motor sensory deficit Psychiatric exam: PRESENT: flat affect Results Laboratory Results: 11/25/19 04:53 11/25/19 04:53 11/25/19 11/25/19 04:53 04:53 WBC 6.9 RBC 3.42 L Hgb 10.9 L Hct 32.0 L MCV 94 MCH 31.8 MCHC 34.0 RDW 15.4 H Plt Count 158 Sodium 137.0 Potassium 4.2 Chloride 100 Carbon Dioxide 28 Anion Gap 9 BUN 46 H Creatinine 5.96 H Est GFR ( Amer) 11 L Glucose 99 Calcium 7.5 L Impressions: Chest X-Ray 11/23/19 17:32 IMPRESSION: NO ACUTE RADIOGRAPHIC FINDING IN THE CHEST. Assessment and Plan - Diagnosis (1) UTI (urinary tract infection) Is this a current diagnosis for this admission?: Yes (2) Acute UTI (urinary tract infection) Is this a current diagnosis for this admission?: Yes (3) Chronic respiratory failure Is this a current diagnosis for this admission?: Yes (4) Encephalopathy acute Is this a current diagnosis for this admission?: Yes (5) COPD (chronic obstructive pulmonary disease) Qualifiers: COPD type: unspecified COPD Qualified Code(s): J44.9 - Chronic obstructive pulmonary disease, unspecified Is this a current diagnosis for this admission?: Yes (6) ESRD (end stage renal disease) on dialysis Is this a current diagnosis for this admission?: Yes (7) Dependence on supplemental oxygen Is this a current diagnosis for this admission?: Yes (8) Altered mental status Is this a current diagnosis for this admission?: Yes - Plan Summary Summary: 11/25/2019 Temp 97 6 pulse 73 blood pressure 101/45 Oxygen saturation between 89 and 100% on 2 L nasal cannula Is oxygen at home Currently on IV Rocephin blood cultures -24 hours Urine culture shows preliminary gram-positive cocci She would benefit from 2 or 3 days of IV antibiotics and then discharge home on p.o. antibiotics Charge planning is involved Anticipate discharge in 48 to 72 hours Labs today stable - Time Time Spent with patient: 25-34 minutes
[2019-11-25] MEDS: CEFTRIAXONE 1 GM/D5W RTU 1 GM/50 ML RTUPB IV SCH (17:35)
[2019-11-25] MEDS: ASPIRIN 81 MG TABLET, ENT COATED PO SCH (21:23)
[2019-11-25] MEDS: VITAMIN B COMPLEX TABLET PO SCH (21:23)
[2019-11-25] MEDS: ATORVASTATIN CALCIUM 20 MG TABLET PO SCH (21:24)
[2019-11-26] MEDS ORDERED: NORMAL SALINE 1000 ML 1,000 ML IV PRN (05:00)
[2019-11-26 05:25] LABS: ABSOLUTE EOSINOPHILS # (AUTO) 0.3 10^3/uL (0.0-0.6); ABSOLUTE LYMPHOCYTES (AUTO) 1.7 10^3/uL (0.5-4.7); ABSOLUTE MONOCYTES (AUTO) 0.6 10^3/uL (0.1-1.4); ABSOLUTE NEUT (AUTO) 3.8 10^3/uL (1.7-8.2); BASOPHILS % (AUTO) 0.7 % (0-2); EOSINOPHILS % (AUTO) 4.3 % (0-6); HEMATOCRIT 30.3 % (37.9-51.0); HEMOGLOBIN 10.3 g/dL (13.5-17.0); LYMPHOCYTES % (AUTO) 26.4 % (13-45); MEAN CORPUSCULAR HEMOGLOBIN 31.3 pg (27.0-33.4); MEAN CORPUSCULAR HGB CONC 34.1 g/dL (32.0-36.0); MEAN CORPUSCULAR VOLUME 92 fl (80-97); MONOCYTES % (AUTO) 8.6 % (3-13); PLATELET COUNT 162 10^3/uL (150-450); RED BLOOD COUNT 3.31 10^6/uL (4.35-5.55); RED CELL DISTRIBUTION WIDTH 15.7 % (11.5-14.0); TOTAL CELLS COUNTED % (AUTO) 100 %; WHITE BLOOD COUNT 6.4 10^3/uL (4.0-10.5)
[2019-11-26] MEDS: HEPARIN SOD (PORCINE) 5,000 UNIT/ML 1 ML VIAL SUBCUT SCH ×3 (05:47→21:34)
[2019-11-26 05:51] LABS: ANION GAP 11 (5-19); CALCIUM 7.7 mg/dL (8.4-10.2); CARBON DIOXIDE 26 mmol/L (22-30); CHLORIDE 101 mmol/L (98-107); GLUCOSE 102 mg/dL (75-110); POTASSIUM 4.6 mmol/L (3.6-5.0)
[2019-11-26 06:03] LABS: BLOOD UREA NITROGEN 66 mg/dL (7-20)
[2019-11-26] MEDS ORDERED: SULFAMETHOXAZOLE/TRIMETHOPRIM 800-160 MG TABLET PO SCH (10:00)
[2019-11-26] MEDS: MAGNESIUM OXIDE 400 MG TABLET PO SCH (12:05)
[2019-11-26] MEDS: CALCIUM CARBONATE 500 MG TAB.CHEW PO SCH (12:06)
[2019-11-26] MEDS: CETIRIZINE 10 MG TABLET PO SCH (12:06)
[2019-11-26] MEDS: PANTOPRAZOLE SODIUM 20 MG TABLET.DR PO SCH (12:06)
[2019-11-26] MEDS: DOCUSATE SODIUM 100 MG CAPSULE PO SCH ×3 (12:06→18:58)
[2019-11-26] MEDS: SODIUM BICARBONATE 650 MG TABLET PO SCH ×2 (12:06→21:35)
[2019-11-26] MEDS: MIDODRINE HCL 5 MG TABLET PO SCH ×2 (12:07→19:00)
[2019-11-26] MEDS: ISOSORBIDE DINITRATE 20 MG TABLET PO SCH ×2 (12:07→21:35)
--- NOTE | 2019-11-26 14:36 | PDOC PROGRESS REPORT ---
Subjective Progress Note for:: 11/26/19 Reason For Visit: SEPSIS,UTI AMS ESRD 11/26/2019 Admitted 3 days ago for sepsis, UTI, altered mental status, end-stage renal disease on hemodialysis Physical Exam Vital Signs: Temp Pulse Resp BP Pulse Ox 98.3 F 111 H 17 150/62 H 91 L 11/26/19 11:52 11/26/19 12:23 11/26/19 12:23 11/26/19 11:52 11/26/19 12:23 Intake & Output 11/25/19 11/26/19 11/27/19 06:59 06:59 06:59 Intake Total 2730 320 700 Output Total 2800 350 2000 Balance -70 -30 -1300 Weight 77.2 kg 78.9 kg General appearance: PRESENT: no acute distress Respiratory exam: PRESENT: clear to auscultation jenni. ABSENT: rales, rhonchi, wheezes Cardiovascular exam: PRESENT: RRR. ABSENT: diastolic murmur, rubs, systolic murmur Neurological exam: PRESENT: alert, awake, oriented to person, oriented to place, oriented to time, oriented to situation, CN II-XII grossly intact. ABSENT: motor sensory deficit Psychiatric exam: PRESENT: appropriate affect, normal mood. ABSENT: homicidal ideation, suicidal ideation Results Laboratory Results: 11/26/19 04:51 11/26/19 04:51 11/26/19 11/26/19 04:51 04:51 WBC 6.4 RBC 3.31 L Hgb 10.3 L Hct 30.3 L MCV 92 MCH 31.3 MCHC 34.1 RDW 15.7 H Plt Count 162 Seg Neutrophils % 60.0 Sodium 137.6 Potassium 4.6 Chloride 101 Carbon Dioxide 26 Anion Gap 11 BUN 66 H D Creatinine 7.18 H Est GFR ( Amer) 9 L Glucose 102 Calcium 7.7 L 11/23/19 17:04 Clean Catch Midstream Urine Culture - Final E.faecium Vre Mrsa (Meth Resis Staph Aureus) Impressions: Chest X-Ray 11/23/19 17:32 IMPRESSION: NO ACUTE RADIOGRAPHIC FINDING IN THE CHEST. Assessment and Plan - Diagnosis (1) UTI (urinary tract infection) Is this a current diagnosis for this admission?: Yes (2) Acute UTI (urinary tract infection) Is this a current diagnosis for this admission?: Yes (3) Chronic respiratory failure Is this a current diagnosis for this admission?: Yes (4) Encephalopathy acute Is this a current diagnosis for this admission?: Yes (5) COPD (chronic obstructive pulmonary disease) Qualifiers: COPD type: unspecified COPD Qualified Code(s): J44.9 - Chronic obstructive pulmonary disease, unspecified Is this a current diagnosis for this admission?: Yes (6) ESRD (end stage renal disease) on dialysis Is this a current diagnosis for this admission?: Yes (7) Dependence on supplemental oxygen Is this a current diagnosis for this admission?: Yes (8) Altered mental status Is this a current diagnosis for this admission?: Yes - Plan Summary Summary: 11/25/2019 Temp 97 6 pulse 73 blood pressure 101/45 Oxygen saturation between 89 and 100% on 2 L nasal cannula Is oxygen at home Currently on IV Rocephin blood cultures -24 hours Urine culture shows preliminary gram-positive cocci he would benefit from 2 or 3 days of IV antibiotics and then discharge home on p.o. antibiotics DisCharge planning is involved Anticipate discharge in 48 to 72 hours Labs today stable 11/26/2019 Temperature 98.3 pulse 96 blood pressure 150/62 O2 sat 94% on room air CBC is normal Chemistry is normal for someone with end-stage renal disease Urine is positive for MRSA as well as VRE This morning I changed her to Bactrim when I saw that he had MRSA and now that patient has VRE in his urine as well. After consulting hospitalists I am going to switch the patient to current ant ibiotics. Hopefully I can switch to p.o. instead of 14 days of IV - Time Time Spent with patient: 25-34 minutes
--- NOTE | 2019-11-26 21:16 | PDOC PROGRESS REPORT ---
Subjective Progress Note for:: 11/26/19 Subjective:: I am seeing the patient during dialysis this morning. Patient appears to be in his baseline mental status. He tells me that he is feeling much better. He said he is ready to go home. When I asked him why he was brought to the hospital he said he has been having fever. He is tolerating dialysis without any problems. Reason For Visit: SEPSIS,UTI AMS ESRD Physical Exam Vital Signs: Temp Pulse Resp BP Pulse Ox 98.7 F 65 16 99/41 L 94 11/25/19 23:26 11/26/19 02:00 11/25/19 23:26 11/25/19 23:26 11/25/19 23:26 Intake & Output 11/25/19 11/26/19 11/27/19 06:59 06:59 06:59 Intake Total 2730 320 Output Total 2800 350 Balance -70 -30 Weight 77.2 kg 78.9 kg Vitals during dialysis: Blood pressure 126/61, heart rate of 70, blood flow rate of 450 mL/min and dialysate flow rate of 800 mL/min. Exam: General appearance: PRESENT: no acute distress, cooperative, well-developed, well-nourished Head exam: PRESENT: atraumatic, normocephalic Eye exam: PRESENT: conjunctiva slightly pale, PERRLA. ABSENT: scleral icterus Neck exam: ABSENT: JVD Respiratory exam: PRESENT: Normal breath sounds. ABSENT: crackles, rales, rhonchi, unlabored, wheezes Cardiovascular exam: PRESENT: Regular rate rhythm -+S1, +S2. ABSENT: diastolic murmur, systolic murmur GI/Abdominal exam: PRESENT: normal bowel sounds, soft. ABSENT: guarding, mass, tenderness Extremities exam: ABSENT: No edema Neurological exam: PRESENT: alert, awake, oriented to person, place and time. Skin exam: PRESENT: dry, warm, Cardiovascular exam: PRESENT: +S1, +S2 GI/Abdominal exam: PRESENT: normal bowel sounds, soft. ABSENT: organomegaly, tenderness Results Laboratory Results: 11/26/19 04:51 11/26/19 04:51 11/26/19 11/26/19 04:51 04:51 WBC 6.4 RBC 3.31 L Hgb 10.3 L Hct 30.3 L MCV 92 MCH 31.3 MCHC 34.1 RDW 15.7 H Plt Count 162 Seg Neutrophils % 60.0 Sodium 137.6 Potassium 4.6 Chloride 101 Carbon Dioxide 26 Anion Gap 11 BUN 66 H D Creatinine 7.18 H Est GFR ( Amer) 9 L Glucose 102 Calcium 7.7 L Impressions: Chest X-Ray 11/23/19 17:32 IMPRESSION: NO ACUTE RADIOGRAPHIC FINDING IN THE CHEST. Assessment & Plan - Diagnosis (1) ESRD (end stage renal disease) on dialysis Is this a current diagnosis for this admission?: Yes Plan: We will do dialysis today for 3 hours, using the patient's AV fistula, with 2 potassium bath, blood flow rate of 450 mL per minute, dialysate flow rate of 800 mL per minute, ultrafiltration 1 L as tolerated, no heparin and no Procrit. Patient is being monitored throughout dialysis treatment. (2) Acute UTI (urinary tract infection) Is this a current diagnosis for this admission?: Yes Plan: Patient has history of recurrent UTI since he has urostomy. His current urine culture is positive for Enterococcus faecium and MRSA both sensitive to daptomycin. Patient was initially changed from ceftriaxone to Bactrim and now currently on linezolid. I would actually recommend daptomycin IV which we can give during dialysis treatment rather than linezolid which can be expensive. Will defer to the hospitalist service though. (3) Acute encephalopathy Is this a current diagnosis for this admission?: Yes Plan: Historically the patient always presents with acute encephalopathy with onset of urinary tract infection. Currently I think the patient is at his baseline mental state. (4) Anemia in chronic kidney disease (CKD) Qualifiers: Chronic kidney disease stage: on chronic dialysis Qualified Code(s): N18.6 - End stage renal disease; D63.1 - Anemia in chronic kidney disease; D63.1 - Anemia in chronic kidney disease; Z99.2 - Dependence on renal dialysis; Z99.2 - Dependence on renal dialysis; Z99.2 - Dependence on renal dialysis; Z99.2 - Dependence on renal dialysis Is this a current diagnosis for this admission?: Yes Plan: We will give Retacrit as necessary during dialysis. (5) Hypertension Qualifiers: Hypertension type: essential hypertension Qualified Code(s): I10 - Essential (primary) hypertension Is this a current diagnosis for this admission?: Yes Plan: Well-controlled. - Time Time with patient: 15-25 minutes
[2019-11-26] MEDS: ASPIRIN 81 MG TABLET, ENT COATED PO SCH (21:34)
[2019-11-26] MEDS: ATORVASTATIN CALCIUM 20 MG TABLET PO SCH (21:34)
[2019-11-26] MEDS: LINEZOLID 600 MG TABLET PO SCH (21:35)
[2019-11-26] MEDS: VITAMIN B COMPLEX TABLET PO SCH (21:35)
[2019-11-27] MEDS: HEPARIN SOD (PORCINE) 5,000 UNIT/ML 1 ML VIAL SUBCUT SCH (05:20)
[2019-11-27] MEDS ORDERED: PANTOPRAZOLE SODIUM 20 MG TABLET.DR PO SCH (08:00)
[2019-11-27] MEDS: MAGNESIUM OXIDE 400 MG TABLET PO SCH (09:01)
[2019-11-27] MEDS: CETIRIZINE 10 MG TABLET PO SCH (09:01)
[2019-11-27] MEDS: DOCUSATE SODIUM 100 MG CAPSULE PO SCH (09:01)
[2019-11-27] MEDS: CALCIUM CARBONATE 500 MG TAB.CHEW PO SCH (09:01)
[2019-11-27] MEDS: SODIUM BICARBONATE 650 MG TABLET PO SCH (09:02)
[2019-11-27] MEDS: MIDODRINE HCL 5 MG TABLET PO SCH (09:04)
[2019-11-27] MEDS: ISOSORBIDE DINITRATE 20 MG TABLET PO SCH (09:05)
[2019-11-27] MEDS: LINEZOLID 600 MG TABLET PO SCH (09:06)
[2019-11-27 12:33] VITALS: BP 112/48
--- NOTE | 2019-11-28 15:04 | PDOC DISCHARGE SUMMARY ---
Impression - Admit/DC Date/PCP Admission Date/Primary Care Provider: 11/23/19 20:45 [facility] Discharge Date: 11/27/19 - Discharge Diagnosis (1) UTI (urinary tract infection) Is this a current diagnosis for this admission?: Yes (2) Acute UTI (urinary tract infection) Is this a current diagnosis for this admission?: Yes (3) Chronic respiratory failure Is this a current diagnosis for this admission?: Yes (4) Encephalopathy acute Is this a current diagnosis for this admission?: Yes (5) COPD (chronic obstructive pulmonary disease) Is this a current diagnosis for this admission?: Yes (6) ESRD (end stage renal disease) on dialysis Is this a current diagnosis for this admission?: Yes (7) Dependence on supplemental oxygen Is this a current diagnosis for this admission?: Yes (8) Altered mental status Is this a current diagnosis for this admission?: Yes - Assessment Summary: 11/25/2019 Temp 97 6 pulse 73 blood pressure 101/45 Oxygen saturation between 89 and 100% on 2 L nasal cannula Is oxygen at home Currently on IV Rocephin blood cultures -24 hours Urine culture shows preliminary gram-positive cocci he would benefit from 2 or 3 days of IV antibiotics and then discharge home on p.o. antibiotics DisCharge planning is involved Anticipate discharge in 48 to 72 hours Labs today stable 11/26/2019 Temperature 98.3 pulse 96 blood pressure 150/62 O2 sat 94% on room air CBC is normal Chemistry is normal for someone with end-stage renal disease Urine is positive for MRSA as well as VRE This morning I changed her to Bactrim when I saw that he had MRSA and now that patient has VRE in his urine as well. After consulting hospitalists I am going to switch the patient to different antibiotics. Hopefully I can switch to p.o. instead of 14 days of IV. Review of the literature shows that the VRE was resistant to ampicillin as well as the tetracycline then the only treatments would be daptomycin or linezolid. I wrote for Zyvox 600 mg every 12 hours for 14 days and will check CBCs on a weekly basis. 11/27/2019 Medically stable for discharge. Final diagnosis end-stage renal disease on hemodialysis, UTI VRE and MRSA, altered mental status, COPD, sepsis, home O2 dependency Patient discharged home on Zyvox 600 mg 28 tablets for 14 days midodrine 2.5 mg twice daily Patient and family were told by multiple hospital personnel that if they had trouble getting his medications to call the hospital back. Patient evidently gets his medications through the [facility] He was admitted to the hospital on 22 November with altered mental status and recurrent UTI. He had had 2 days of fever and confusion. Emergency room however he was awake and alert and oriented x3. He was started on IV Rocephin as previously he had had a Klebsiella bacteria. Turns out however that this urine reportedly grew out MRSA and enterococcus faecium VRE, sensitive to daptomycin and Zyvox. Blood culture showed no growth in 4 days. Patient was seen during dialysis by nephrology. She did state that she can give the daptomycin IV during dialysis. I wanted to try to do this however as an outpatient first and if that was unsuccessful we could resort to the IV treatment during dialysis. Patient's prescriptions were electronically transmitted to pharmacy. Had a follow-up appointment with the [facility] on November 30 He was back to his baseline with his mental status and discharged home in good condition - Additional Information Resuscitation Status: Full Code Discharge Diet: As Tolerated, Other (Comments) Discharge Activity: Balance Activity w/Rest Referrals: [facility] [Primary Care Provider] - 12/01/19 2:30 pm Prescriptions: Midodrine HCl [Proamatine 5 mg Tablet] 2.5 mg PO BID 30 Days #30 tablet Linezolid [Zyvox 600 mg Tablet] 600 mg PO Q12 14 Days #28 tablet Home Medications: Calcium Carbonate [Tums Chewable 500 mg Tab.chew] 500 mg PO DAILY 04/17/18 Folic Acid/Vitamin B Comp W-C [Nephrocaps Multiple Vitamin Capsule] 1 cap PO QHS 04/17/18 Magnesium Oxide [Mag-Ox 400 mg Tablet] 400 mg PO DAILY 04/17/18 Omeprazole 20 mg PO DAILY 04/17/18 Sodium Bicarbonate [Sodium Bicarbonate 650 mg Tablet] 650 mg PO Q12 04/17/18 Aspirin [Ecotrin 81 mg EC Tablet] 81 mg PO QHS tabec 09/17/18 Isosorbide Dinitrate [Isordil Titradose 20 mg Tablet] 20 mg PO Q12 01/15/19 Cetirizine HCl [Zyrtec 10 mg Tablet] 1 tab PO DAILY 04/22/19 Atorvastatin Calcium [Lipitor 20 mg Tablet] 20 mg PO QHS tablet 04/29/19 Acetaminophen [Tylenol 325 mg Tablet] 650 mg PO Q8HP PRN tablet 11/27/19 Docusate Sodium [Colace 100 mg Capsule] 100 mg PO BID capsule 11/27/19 Linezolid [Zyvox 600 mg Tablet] 600 mg PO Q12 14 Days #28 tablet 11/27/19 Mag Hydrox/Al Hydrox/Simeth [Maalox Plus Susp 30 Udcup] 30 ml PO Q6HP PRN udc 11/27/19 Midodrine HCl [Proamatine 5 mg Tablet] 2.5 mg PO BID 30 Days #30 tablet 11/27/19 History of Present Illiness History of Present Illness: TYLOR JIMENEZ is a 79 year old male Physical Exam Vital Signs: Temp Pulse Resp BP Pulse Ox 97.6 F 72 18 112/48 L 100 11/27/19 12:30 11/27/19 12:30 11/27/19 12:30 11/27/19 12:30 11/27/19 12:30 Intake & Output 11/27/19 11/28/19 11/29/19 06:59 06:59 06:59 Intake Total 1020 240 Output Total 2250 Balance -1230 240 Weight 75.9 kg Results Laboratory Results: WBC 6.4 10^3/uL (4.0-10.5) 11/26/19 04:51 RBC 3.31 10^6/uL (4.35-5.55) L 11/26/19 04:51 Hgb 10.3 g/dL (13.5-17.0) L 11/26/19 04:51 Hct 30.3 % (37.9-51.0) L 11/26/19 04:51 MCV 92 fl (80-97) 11/26/19 04:51 MCH 31.3 pg (27.0-33.4) 11/26/19 04:51 MCHC 34.1 g/dL (32.0-36.0) 11/26/19 04:51 RDW 15.7 % (11.5-14.0) H 11/26/19 04:51 Plt Count 162 10^3/uL (150-450) 11/26/19 04:51 Lymph % (Auto) 26.4 % (13-45) 11/26/19 04:51 Bent % (Auto) 8.6 % (3-13) 11/26/19 04:51 Eos % (Auto) 4.3 % (0-6) 11/26/19 04:51 Baso % (Auto) 0.7 % (0-2) 11/26/19 04:51 Absolute Neuts (auto) 3.8 10^3/uL (1.7-8.2) 11/26/19 04:51 Absolute Lymphs (auto) 1.7 10^3/uL (0.5-4.7) 11/26/19 04:51 Absolute Monos (auto) 0.6 10^3/uL (0.1-1.4) 11/26/19 04:51 Absolute Eos (auto) 0.3 10^3/uL (0.0-0.6) 11/26/19 04:51 Absolute Basos (auto) 0.0 10^3/uL (0.0-0.2) 11/26/19 04:51 Seg Neutrophils % 60.0 % (42-78) 11/26/19 04:51 PT 14.8 SEC (11.4-15.4) 11/23/19 18:28 INR 1.15 11/23/19 18:28 VBG pH 7.43 (7.30-7.42) H 11/23/19 18:46 VBG pCO2 37.9 mmHg (35-63) 11/23/19 18:46 VBG HCO3 24.8 mmol/L (20-32) 11/23/19 18:46 VBG Base Excess 0.7 mmol/L 11/23/19 18:46 Sodium 137.6 mmol/L (137-145) 11/26/19 04:51 Potassium 4.6 mmol/L (3.6-5.0) 11/26/19 04:51 Chloride 101 mmol/L (98-107) 11/26/19 04:51 Carbon Dioxide 26 mmol/L (22-30) 11/26/19 04:51 Anion Gap 11 (5-19) 11/26/19 04:51 BUN 66 mg/dL (7-20) H D 11/26/19 04:51 Creatinine 7.18 mg/dL (0.52-1.25) H 11/26/19 04:51 Est GFR ( Amer) 9 (>60) L 11/26/19 04:51 Est GFR (MDRD) Non-Af 7 (>60) L 11/26/19 04:51 Glucose 102 mg/dL (75-110) 11/26/19 04:51 Lactic Acid 0.9 mmol/L (0.7-2.1) 11/23/19 23:47 Calcium 7.7 mg/dL (8.4-10.2) L 11/26/19 04:51 Total Bilirubin 0.8 mg/dL (0.2-1.3) 11/23/19 18:28 Direct Bilirubin 0.2 mg/dL (0.0-0.4) 11/23/19 18:28 Neonat Total Bilirubin Not Reportable 11/23/19 18:28 Neonat Direct Bilirubin Not Reportable 11/23/19 18:28 Neonat Indirect Bili Not Reportable 11/23/19 18:28 AST 20 U/L (17-59) 11/23/19 18:28 ALT 17 U/L (<50) 11/23/19 18:28 Alkaline Phosphatase 74 U/L (38-126) 11/23/19 18:28 Total Protein 6.7 g/dL (6.3-8.2) 11/23/19 18:28 Albumin 3.7 g/dL (3.5-5.0) 11/23/19 18:28 Urine Color HAJA 11/23/19 17:04 Urine Appearance CLOUDY 11/23/19 17:04 Urine pH 7.0 (5.0-9.0) 11/23/19 17:04 Ur Specific Shellman 1.014 11/23/19 17:04 Urine Protein 100 mg/dL (NEGATIVE) H 11/23/19 17:04 Urine Glucose (UA) NEGATIVE mg/dL (NEGATIVE) 11/23/19 17:04 Urine Ketones NEGATIVE mg/dL (NEGATIVE) 11/23/19 17:04 Urine Blood SMALL (NEGATIVE) H 11/23/19 17:04 Urine Nitrite NEGATIVE (NEGATIVE) 11/23/19 17:04 Urine Bilirubin NEGATIVE (NEGATIVE) 11/23/19 17:04 Urine Urobilinogen 2.0 mg/dL (<2.0) H 11/23/19 17:04 Ur Leukocyte Esterase MODERATE (NEGATIVE) H 11/23/19 17:04 Urine WBC (Auto) 8 /HPF 11/23/19 17:04 Urine RBC (Auto) 3 /HPF 11/23/19 17:04 Urine Bacteria (Auto) 1+ /HPF 11/23/19 17:04 Amorphous Sediment Auto TRACE /HPF 11/23/19 17:04 Urine Mucus (Auto) RARE /LPF 11/23/19 17:04 Urine Ascorbic Acid NEGATIVE (NEGATIVE) 11/23/19 17:04 Impressions: Chest X-Ray 11/23/19 17:32 IMPRESSION: NO ACUTE RADIOGRAPHIC FINDING IN THE CHEST. Stroke Is this a Stroke Patient?: No Acute Heart Failure - Is this a Heart Failure Patient?: No
== END 2019-11-27 13:02 | disposition home health service (06) | DRG 689 ==
LOC: ER 16:51 → EH 20:45 → 4N 22:43
PROVIDERS: ADMIT Internal Medicine; ATTEND Physician Assistant
PROC: 5A1D70Z Performance of Urinary Filtration, Intermittent, Less than 6 Hours Per Day (ICD-10-PCS; principal; 2019-11-24)
DX: N39.0 Urinary tract infection, site not specified (principal); N18.6 End stage renal disease; G93.40 Encephalopathy, unspecified; I13.2 Hypertensive heart and chronic kidney disease with heart failure and with stage 5 chronic kidney disease, or end stage renal disease; J96.10 Chronic respiratory failure, unspecified whether with hypoxia or hypercapnia; Z16.21 Resistance to vancomycin; I50.9 Heart failure, unspecified; D63.1 Anemia in chronic kidney disease; E87.5 Hyperkalemia; R41.82 Altered mental status, unspecified; I25.10 Atherosclerotic heart disease of native coronary artery without angina pectoris; E78.00 Pure hypercholesterolemia, unspecified; I73.9 Peripheral vascular disease, unspecified; J44.9 Chronic obstructive pulmonary disease, unspecified; B95.2 Enterococcus as the cause of diseases classified elsewhere; B95.62 Methicillin resistant Staphylococcus aureus infection as the cause of diseases classified elsewhere; Z60.2 Problems related to living alone; Z96.0 Presence of urogenital implants; Z99.2 Dependence on renal dialysis; Z95.1 Presence of aortocoronary bypass graft; Z85.46 Personal history of malignant neoplasm of prostate; Z85.51 Personal history of malignant neoplasm of bladder; Z99.81 Dependence on supplemental oxygen
CPT/HCPCS: 36415; 71045; 80048; 80053; 81001; 82803; 83605; 85025; 85027; 85610; 87040; 87086; 87088; 87186; 94799; 96365; 99285; J0696; J1644; J3490; J7030

== ENCOUNTER 2020-05-12 13:43 | Inpatient (IN) | payer OTHER, MEDICARE ==
[2020-05-12] MEDS ORDERED: ACETAMINOPHEN 325 MG TABLET PO ONE (14:15)
[2020-05-12] MEDS ORDERED: AZITHROMYCIN INJ 500 MG VIAL IV ONE (14:15)
[2020-05-12] MEDS ORDERED: CEFEPIME INJ 1 GM VIAL IM ONE (14:15)
--- NOTE | 2020-05-12 14:17 | ER Document Report ---
ED General - General Stated Complaint: FEVER Time Seen by Provider: 05/12/20 14:06 [facility]: [facility] [[facility]] - Follow up as needed Cannot obtain history due to: Dementia Notes: Patient with a history of chronic UTIs presents with fall. The patient is very hard of hearing and has dementia so all I know is that he was found on the ground but had a temp above 102 for EMS. He had his first dialysis session today in his left arm. He was febrile tachycardic borderline hypotensive and h ad a lactic in the 1.5 range per EMS. TRAVEL OUTSIDE OF THE [place] IN LAST 30 DAYS: No - Related Data Allergies/Adverse Reactions: ciprofloxacin [From Cipro] Allergy (Verified 11/23/19 17:16) Past Medical History - General Information source: Emergency Med Personnel Cannot obtain history due to: Dementia - Social History Smoking Status: Never Smoker Family History: Malignancy - Bladder cancer, has urostomy. - Past Medical History Cardiac Medical History: Reports: Hx Congestive Heart Failure, Hx Coronary Artery Disease, Hx Hypercholesterolemia, Hx Hypertension, Hx Peripheral Vascular Disease Pulmonary Medical History: Reports: Hx COPD - Possible, Hx Pneumonia Neurological Medical History: Denies: Hx Cerebrovascular Accident, Hx Seizures Endocrine Medical History: Denies: Hx Diabetes Mellitus Type 1, Hx Diabetes Mellitus Type 2, Hx Hyperthyroidism, Hx Hypothyroidism Renal/ Medical History: Reports: Hx End Stage Renal Disease - On hemodialysis Sunday and Sunday with Dr. Cespedes.. Denies: Hx Peritoneal Dialysis Malignancy Medical History: Reports Hx Renal (Kidney) Cancer - Bladder and prostate cancer GI Medical History: Denies: Hx Cirrhosis, Hx Crohn's Disease, Hx Hepatitis, Hx Ulcerative Colitis Musculoskeletal Medical History: Denies Hx Fibromyalgia, Reports Hx Gout Skin Medical History: Denies Hx Eczema, Denies Hx Psoriasis Psychiatric Medical History: Denies: Hx Depression Infectious Medical History: Reports: Hx C-Diff - Status post fecal transplant. Denies: Hx Hepatitis Past Surgical History: Reports: Hx Cardiac Catheterization, Hx Cardiac Surgery - CABG, Hx Coronary Artery Bypass Graft, Hx Genitourinary Surgery - urostomy, Hx Orthopedic Surgery - Right hip hemiarthroplasty August 2016, Hx Urinary Tract Surgery - bladder /prostate, Hx Vascular Surgery - AAA repair, Other - Nephrostomy tube placement, creation of ileal conduit, prostatectomy - Immunizations Immunizations up to date: Yes Hx Diphtheria, Pertussis, Tetanus Vaccination: Yes Hx Pneumococcal Vaccination: 04/17/14 Review of Systems - Review of Systems Notes: REVIEW OF SYSTEMS G dementia PHYSICAL EXAMINATION General: Elderly filarial warm to the touch no acute distress, well-nourished Head: Atraumatic, normocephalic ENT: Mouth normal, oropharynx moist, no exudates or tonsillar enlargement Eyes: Conjunctiva normal, pupils equal, lids normal Neck: No JVD, supple, no guarding CVS: Normal rate, regular rhythm, no murmurs Resp: No resp distress, equal and normal breath sounds bilaterally GI: Nondistended, soft, no tenderness to palpation, no rebound or guarding Ext: Left upper extremity fistula good bruit good thrill no apparent infection or tenderness otion in upper and lower ext Back: No CVA or midline TTP Skin: No rash, warm Lymphatic: No lymphadeopathy noted Neuro: Awake, alert. Answer simple questions moves all extremities face symmetric. Difficult to ascertain secondary to hearing loss. Physical Exam - Vital signs Vitals: Temp 103 F H 05/12/20 13:43 Course - Re-evaluation Re-evalutation: 05/12/20 14:23 Patient presents with high fevers borderline blood pressures and hypoxia concerning for pneumonia versus COVID-19 Dialysis patient but had his first episode today so I do not think that he has developed sepsis and bacteremia from his fistula in the hour since he was dialyzed. Going to empirically treat for pneumonia with cefepime azithromycin hold on fluids for now although may give small bolus, has already had some from EMS and will check blood pressures. Will repeat lactic and cultures and including urine as well as urinalysis. 05/12/20 16:10 Pyuria on UA. Patient has oxygen dependent COPD, and has a clear x-ray so doubt Covid and pneumonia Recent cultures pansensitive Klebsiella so cefepime should do for now Hemodynamically okay will avoid tons of fluids. Will give antipyretic Discussed with Dr. Desai and Gonzalo for admission. - Vital Signs Vital signs: Temp Pulse Resp BP Pulse Ox 103 F H 103 H 25 H 106/49 L 94 05/12/20 14:15 05/12/20 14:15 05/12/20 14:15 05/12/20 14:15 05/12/20 14:15 - Laboratory Result Diagrams: 05/12/20 13:40 05/12/20 13:40 Laboratory results interpreted by me: 05/12/20 05/12/20 05/12/20 13:40 13:40 15:00 RBC 3.65 L Hgb 11.8 L Hct 34.0 L Lymph % (Auto) 6.9 L Seg Neutrophils % 87.1 H VBG pH 7.43 H Creatinine 3.45 H Est GFR ( Amer) 21 L Est GFR (MDRD) Non-Af 17 L Glucose 136 H Urine Protein Urine Ketones Urine Blood Ur Leukocyte Esterase 05/12/20 15:40 RBC Hgb Hct Lymph % (Auto) Seg Neutrophils % VBG pH Creatinine Est GFR ( Amer) Est GFR (MDRD) Non-Af Glucose Urine Protein >=500 H Urine Ketones TRACE H Urine Blood SMALL H Ur Leukocyte Esterase LARGE H - Diagnostic Test Radiology reviewed: Image reviewed, Reports reviewed - EKG Interpretation by Me EKG shows normal: Sinus rhythm Rate: Tachycardia Rhythm: NSR, PVC's - No ST depression No ST elevation T waves normal Change from prior: New PVCs Critical Care Note - Critical Care Note Total time excluding time spent on procedures (mins): 32 Comments: The above patient is critically ill. Not including procedures, but including direct re-evaluations, speaking with patient and/or consultants, interpreting r esults, and documenting, I spent the total amount of minute listed listed above on critical care time Discharge - Discharge Clinical Impression: Encephalopathy acute, Acute UTI (urinary tract infection) Sepsis Qualifiers: Sepsis type: sepsis due to unspecified organism Sepsis acute organ dysfunction status: unspecified Qualified Code(s): A41.9 - Sepsis, unspecified organism Condition: Fair Disposition: ADMITTED INPATIENT Admitting Provider: Gonzalo (Hospitalist) Unit Admitted: Telemetry [facility]errals: [facility] [[facility]] - Follow up as needed
[2020-05-12 14:40] LABS: ABSOLUTE LYMPHOCYTES (AUTO) 0.5 10^3/uL (0.5-4.7); ABSOLUTE MONOCYTES (AUTO) 0.4 10^3/uL (0.1-1.4); BASOPHILS % (AUTO) 0.5 % (0-2); EOSINOPHILS % (AUTO) 0.4 % (0-6); HEMOGLOBIN 11.8 g/dL (13.5-17.0); LYMPHOCYTES % (AUTO) 6.9 % (13-45); MEAN CORPUSCULAR HEMOGLOBIN 32.3 pg (27.0-33.4); MEAN CORPUSCULAR HGB CONC 34.7 g/dL (32.0-36.0); MEAN CORPUSCULAR VOLUME 93 fl (80-97); MONOCYTES % (AUTO) 5.1 % (3-13); PLATELET COUNT 150 10^3/uL (150-450); RED BLOOD COUNT 3.65 10^6/uL (4.35-5.55); RED CELL DISTRIBUTION WIDTH 13.2 % (11.5-14.0); SEGMENTED NEUTROPHILS % (AUTO) 87.1 % (42-78); TOTAL CELLS COUNTED % (AUTO) 100 %; WHITE BLOOD COUNT 6.9 10^3/uL (4.0-10.5)
[2020-05-12 14:46] LABS: INTERNATIONAL RATION (INR) 1.02; PROTHROMBIN TIME 13.6 SEC (11.4-15.4)
--- NOTE | 2020-05-12 14:47 | RADIOLOGY REPORT (SQ) ---
EXAM DESCRIPTION: CHEST SINGLE VIEW IMAGES COMPLETED DATE/TIME: 05/12/2020 2:33 pm REASON FOR STUDY: SOB hypoxia COMPARISON: 11/23/2019 EXAM PARAMETERS: NUMBER OF VIEWS: One view. TECHNIQUE: Single frontal radiographic view of the chest acquired. RADIATION DOSE: NA LIMITATIONS: None. FINDINGS: LUNGS AND PLEURA: No consolidation or effusions. Interstitial markings are prominent but unchanged from prior exam. This most likely represents chronic interstitial lung disease. No pneumo thorax. MEDIASTINUM AND HILAR STRUCTURES: No masses. Contour normal. HEART AND VASCULAR STRUCTURES: Heart normal in size. Normal vasculature. BONES: No acute findings. HARDWARE: Sternotomy wires are in place. OTHER: No other significant finding. IMPRESSION: No acute findings. TECHNICAL DOCUMENTATION: JOB ID: [id number] 2010 [employer]- All Rights Reserved Reading location - IP/workstation name: [email or web address]
[2020-05-12 14:48] LABS: ALKALINE PHOSPHATASE 126 U/L (38-126); ANION GAP 12 (5-19); ASPARTATE AMINO TRANSFERASE 22 U/L (17-59); BILIRUBIN,DIRECT 0.4 mg/dL (0.0-0.4); BILIRUBIN,TOTAL 0.8 mg/dL (0.2-1.3); BLOOD UREA NITROGEN 15 mg/dL (7-20); CALCIUM 8.5 mg/dL (8.4-10.2); CARBON DIOXIDE 29 mmol/L (22-30); CHLORIDE 98 mmol/L (98-107); GLUCOSE 136 mg/dL (75-110); POTASSIUM 3.7 mmol/L (3.6-5.0); TOTAL PROTEIN 6.8 g/dL (6.3-8.2)
[2020-05-12 15:17] LABS: VENOUS BLOOD BASE EXCESS 6.4 mmol/L; VENOUS BLOOD HCO3 31.8 mmol/L (20-32); VENOUS BLOOD PCO2 49.1 mmHg (35-63); VENOUS BLOOD PH 7.43 (7.30-7.42)
[2020-05-12 16:04] LABS: APPEARANCE,URINE CLOUDY; BILIRUBIN,URINE NEGATIVE (NEGATIVE); COLOR,URINE AMBER; GLUCOSE, URINE NEGATIVE (NEGATIVE); KETONES,URINE TRACE mg/dL (NEGATIVE); LEUKOCYTE ESTERASE,URINE LARGE (NEGATIVE); NITRITE,URINE NEGATIVE (NEGATIVE); PROTEIN,URINE >=500 mg/dL (NEGATIVE); URINE SPECIFIC GRAVITY 1.015; UROBILINOGEN,URINE NEGATIVE mg/dL (<2.0)
[2020-05-12] MEDS ORDERED: ACETAMINOPHEN 325 MG TABLET PO PRN (17:14)
[2020-05-12] MEDS ORDERED: LEVALBUTEROL HCL NEB 1.25 MG/3 ML AMPUL NEB PRN (17:14)
[2020-05-12] MEDS ORDERED: ONDANSETRON 4 MG TAB.RAPDIS PO PRN (17:14)
[2020-05-12] MEDS ORDERED: CETIRIZINE 10 MG TABLET PO PRN (17:29)
--- NOTE | 2020-05-12 17:39 | PDOC H&P ---
History of Present Illness Admission Date/PCP: 05/12/20 17:05 [facility] Patient complains of: Patient states his daughter made him go to the emergency department History of Present Illness: TYLOR JIMENEZ is a 79 year old male who underwent hemodialysis earlier today without complication. He has a ureterostomy and had multiple admissions for urinary tract infections. He also has COPD and smokes at least 1/2 pack of cigarettes daily. Temperature in the urgency department registered at 103F. When questioning the patient states that he does not feel poorly. He has congested breath sounds. Fistula in the left arm with dressings consistent with dialysis earlier today. Urinalysis was positive for white blood cells, large amount of leukocyte esterase and 3+ bacteria. Chest x-ray does not suggest acute infiltrate. The patient will be admitted and given IV antibiotics. His map was not below 65 and his increased creatinine in fact is his baseline. He did not have thrombocytopenia or elevated bilirubin and does not meet sepsis criteria. We will give IV fluids judiciously with his underlying end-stage kidney disease. Past Medical History Cardiac Medical History: Reports: Congestive Heart Failure, Coronary Artery Disease, Hyperlipidema, Hypertension, Peripheral Vascular Disease Pulmonary Medical History: Reports: Chronic Obstructive Pulmonary Disease (COPD) - Possible, Pneumonia Neurological Medical History: Denies: Seizures Endocrine Medical History: Denies: Diabetes Mellitus Type 1, Diabetes Mellitus Type 2, Hyperthyroidism, Hypothyroidism Renal/ Medical History: Reports: End Stage Renal Disease - On hemodialysis Sunday and Sunday with Dr. Cespedes. 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 Past Surgical History Past Surgical History: Reports: Cardiac Catheterization, Coronary Artery Bypass Graft, Orthopedic Surgery - Right hip hemiarthroplasty August 2016, Vascular Surgery - AAA repair, Other - Nephrostomy tube placement, creation of ileal conduit, prostatectomy Social History Information Source: Patient, [facility] Records Lives with: Family Smoking Status: Never Smoker Electronic Cigarette use?: No Frequency of Alcohol Use: None Hx Recreational Drug Use: No Drugs: None Hx Prescription Drug Abuse: No - Advance Directive Resuscitation Status: Do Not Resuscitate Family History Family History: Malignancy - Bladder cancer, has urostomy. Parental Family History Reviewed: Yes Children Family History Reviewed: Yes Sibling(s) Family History Reviewed.: Yes Medication/Allergy Home Medications: Folic Acid/Vitamin B Comp W-C [Nephrocaps Multiple Vitamin Capsule] 1 cap PO DAILY 04/17/18 Magnesium Oxide [Mag-Ox 400 mg Tablet] 400 mg PO DAILY 04/17/18 Omeprazole 20 mg PO QAM 04/17/18 Sodium Bicarbonate [Sodium Bicarbonate 650 mg Tablet] 650 mg PO BID 04/17/18 Isosorbide Dinitrate [Isordil Titradose 20 mg Tablet] 20 mg PO Q12 01/15/19 Cetirizine HCl [Zyrtec 10 mg Tablet] 10 tab PO DAILY 04/22/19 Atorvastatin Calcium [Lipitor 20 mg Tablet] 40 mg PO QHS 05/12/20 Calcitriol [Rocaltrol] 0.25 mcg PO DAILY 05/12/20 Allergies/Adverse Reactions: ciprofloxacin [From Cipro] Allergy (Verified 05/12/20 18:23) Review of Systems Constitutional: PRESENT: as per HPI, weakness Eyes: PRESENT: other - Wears glasses Nose, Mouth, and Throat: ABSENT: mouth pain, sore throat Cardiovascular: ABSENT: chest pain, edema, palpitations Respiratory: PRESENT: other - Very coarse breath sounds. ABSENT: cough, hemoptysis Gastrointestinal: PRESENT: other. ABSENT: abdominal pain, constipation, di arrhea, heartburn Integumentary: ABSENT: lesions Neurological: ABSENT: abnormal speech, restless legs, tremor(s) Psychiatric: ABSENT: anxiety, depression Physical Exam Vital Signs: Temp Pulse Resp BP Pulse Ox 99.4 F 103 H 25 H 106/49 L 96 05/12/20 16:25 05/12/20 14:15 05/12/20 14:15 05/12/20 14:15 05/12/20 14:16 Intake & Output 05/11/20 05/12/20 05/13/20 06:59 06:59 06:59 Intake Total 100 Balance 100 General appearance: PRESENT: no acute distress, cooperative, well-developed Head exam: PRESENT: atraumatic, normocephalic Eye exam: PRESENT: conjunctiva pink, other - Patient did not appear to comprehend the extraocular muscle exam. ABSENT: scleral icterus Ear exam: PRESENT: normal external ear exam. ABSENT: bleeding, drainage Mouth exam: PRESENT: moist, tongue midline Neck exam: ABSENT: carotid bruit, JVD, lymphadenopathy Respiratory exam: PRESENT: prolonged expiratory phas, rales - Faint at bases, symmetrical, unlabored, other - Congested breath sounds. ABSENT: rhonchi, tachypnea, wheezes Cardiovascular exam: PRESENT: RRR, +S1, +S2. ABSENT: bradycardia, diastolic murmur, irregular rhythm, systolic murmur, tachycardia GI/Abdominal exam: PRESENT: normal bowel sounds, soft, other - Urostomy abdomen. ABSENT: distended, guarding, tenderness Rectal exam: PRESENT: deferred Gentrourinary exam: ABSENT: indwelling catheter Extremities exam: ABSENT: pedal edema Musculoskeletal exam: PRESENT: other - Decreased muscle mass. ABSENT: deformity, dislocation Neurological exam: PRESENT: alert, awake, oriented to person, oriented to place, oriented to situation Psychiatric exam: PRESENT: flat affect. ABSENT: agitated, anxious Focused psych exam: ABSENT: delusional, paranoid, restlessness Skin exam: PRESENT: other - Very dry skin. AV fistula left arm. Results Laboratory Results: 05/12/20 13:40 05/12/20 13:40 05/12/20 05/12/20 05/12/20 13:40 13:40 15:00 WBC 6.9 RBC 3.65 L Hgb 11.8 L Hct 34.0 L MCV 93 MCH 32.3 MCHC 34.7 RDW 13.2 Plt Count 150 Seg Neutrophils % 87.1 H VBG pH 7.43 H VBG pCO2 49.1 VBG HCO3 31.8 VBG Base Excess 6.4 Sodium 139.4 Potassium 3.7 Chloride 98 Carbon Dioxide 29 Anion Gap 12 BUN 15 Creatinine 3.45 H Est GFR ( Amer) 21 L Glucose 136 H Lactic Acid Calcium 8.5 Total Bilirubin 0.8 AST 22 Alkaline Phosphatase 126 Total Protein 6.8 Albumin 4.0 Urine Color Urine Appearance Urine pH Ur Specific Ralph Urine Protein Urine Glucose (UA) Urine Ketones Urine Blood Urine Nitrite Ur Leukocyte Esterase Urine WBC (Auto) Urine RBC (Auto) 05/12/20 05/12/20 15:00 15:40 WBC RBC Hgb Hct MCV MCH MCHC RDW Plt Count Seg Neutrophils % VBG pH VBG pCO2 VBG HCO3 VBG Base Excess Sodium Potassium Chloride Carbon Dioxide Anion Gap BUN Creatinine Est GFR ( Amer) Glucose Lactic Acid 1.2 Calcium Total Bilirubin AST Alkaline Phosphatase Total Protein Albumin Urine Color HAJA Urine Appearance CLOUDY Urine pH 7.0 Ur Specific Ralph 1.015 Urine Protein >=500 H Urine Glucose (UA) NEGATIVE Urine Ketones TRACE H Urine Blood SMALL H Urine Nitrite NEGATIVE Ur Leukocyte Esterase LARGE H Urine WBC (Auto) >182 Urine RBC (Auto) 20 Impressions: Chest X-Ray 05/12/20 14:16 IMPRESSION: No acute findings. Assessment and Plan - Diagnosis (1) Acute UTI (urinary tract infection) Is this a current diagnosis for this admission?: Yes (2) Acute bronchitis Qualifiers: Bronchitis organism: unspecified organism Qualified Code(s): J20.9 - Acute bronchitis, unspecified Is this a current diagnosis for this admission?: Yes (3) Anemia in chronic kidney disease (CKD) Qualifiers: Chronic kidney disease stage: on chronic dialysis Qualified Code(s): N18.6 - End stage renal disease; D63.1 - Anemia in chronic kidney disease; D63.1 - Anemia in chronic kidney disease; Z99.2 - Dependence on renal dialysis; Z99.2 - Dependence on renal dialysis; Z99.2 - Dependence on renal dialysis; Z99.2 - Dependence on renal dialysis Is this a current diagnosis for this admission?: Yes (4) ESRD (end stage renal disease) on dialysis Is this a current diagnosis for this admission?: Yes (5) Acute and chronic respiratory failure with hypoxia Is this a current diagnosis for this admission?: Yes (6) COPD (chronic obstructive pulmonary disease) Qualifiers: COPD type: chronic bronchitis Chronic bronchitis type: unspecified Qualified Code(s): J42 - Unspecified chronic bronchitis Is this a current diagnosis for this admission?: Yes (7) Hyperlipidemia Qualifiers: Hyperlipidemia type: unspecified Qualified Code(s): E78.5 - Hyperlipidemia, unspecified Is this a current diagnosis for this admission?: Yes (8) Hypertension Qualifiers: Hypertension type: essential hypertension Qualified Code(s): I10 - Essential (primary) hypertension Is this a current diagnosis for this admission?: Yes - Plan Summary Summary: 05/12/2020 Urinary tract infection-blood cultures pending. Patient with recurrent infections over time. Renal dosing cefepime to cover gram negatives. Acute bronchitis with COPD-doxycycline. No adjustment for renal function Continue to monitor blood pressure. Currently no antihypertensive medications. Continue statin therapy and isosorbide dinitrate. End-stage kidney disease on hemodialysis-nephrology is aware. Patient did have dialysis today. Will need dialysis on Sunday. We will continue sodium bicarbonate and calcitriol. Blood cultures pending as is urine culture. Adjust antibiotic therapy based on microbiology results. - Time Time Spent with patient: 35 or more minutes Medications reviewed and adjusted accordingly: Yes Anticipated Discharge Disposition: Home with Home Health Anticipated Discharge Timeframe: 4 to 5 days - Inpatient Certification Based on my medical assessment, after consideration of the patient's comorbidities, presenting symptoms, or acuity I expect that the services needed warrant INPATIENT care.: Yes I certify that my determination is in accordance with my understanding of Medicare's requirements for reasonable and necessary INPATIENT services [42 CFR 412.3e].: Yes Medical Necessity: Need Close Monitoring Due to Risk of Patient Decompensation, Need For Continuous Telemetry Monitoring, Need for Pain Control, Need for IV Antibiotics, Other - Hemodialysis Post Hospital Care: D/C or Transfer Summary
--- NOTE | 2020-05-12 17:49 | EKG REPORT ---
SEVERITY:- ABNORMAL ECG - SINUS RHYTHM MULTIFORM VENTRICULAR PREMATURE COMPLEXES : Confirmed by: Brooks Edouard MD 12-May-2020 17:48:31
[2020-05-12] MEDS: DOXYCYCLINE HYCLATE 100 MG in DEXTROSE 5%-WATER 250 ML IV SCH (21:56)
[2020-05-12] MEDS: HEPARIN SOD (PORCINE) 5,000 UNIT/ML 1 ML VIAL SUBCUT SCH (21:57)
[2020-05-12] MEDS: ATORVASTATIN CALCIUM 40 MG TABLET PO SCH (21:58)
[2020-05-12] MEDS: ISOSORBIDE DINITRATE 20 MG TABLET PO SCH (22:06)
[2020-05-13] MEDS: IPRATROPIUM/ALBUTEROL 0.5-2.5 MG/3 ML AMPUL NEB SCH ×3 (01:02→16:13)
[2020-05-13] MEDS: HEPARIN SOD (PORCINE) 5,000 UNIT/ML 1 ML VIAL SUBCUT SCH ×3 (05:36→21:13)
[2020-05-13] MEDS: PANTOPRAZOLE SODIUM 20 MG TABLET.DR PO SCH (05:36)
[2020-05-13 06:56] LABS: ABSOLUTE LYMPHOCYTES (AUTO) 0.6 10^3/uL (0.5-4.7); ABSOLUTE MONOCYTES (AUTO) 0.4 10^3/uL (0.1-1.4); ABSOLUTE NEUT (AUTO) 3.5 10^3/uL (1.7-8.2); BASOPHILS % (AUTO) 0.5 % (0-2); EOSINOPHILS % (AUTO) 0.1 % (0-6); HEMATOCRIT 29.9 % (37.9-51.0); HEMOGLOBIN 10.4 g/dL (13.5-17.0); LYMPHOCYTES % (AUTO) 13.3 % (13-45); MEAN CORPUSCULAR HEMOGLOBIN 32.2 pg (27.0-33.4); MEAN CORPUSCULAR HGB CONC 34.7 g/dL (32.0-36.0); MEAN CORPUSCULAR VOLUME 93 fl (80-97); MONOCYTES % (AUTO) 9.6 % (3-13); PLATELET COUNT 120 10^3/uL (150-450); RED BLOOD COUNT 3.23 10^6/uL (4.35-5.55); RED CELL DISTRIBUTION WIDTH 13.1 % (11.5-14.0); SEGMENTED NEUTROPHILS % (AUTO) 76.5 % (42-78); TOTAL CELLS COUNTED % (AUTO) 100 %; WHITE BLOOD COUNT 4.5 10^3/uL (4.0-10.5)
[2020-05-13 07:22] LABS: ALBUMIN 3.3 g/dL (3.5-5.0); ANION GAP 11 (5-19); BLOOD UREA NITROGEN 25 mg/dL (7-20); CALCIUM 7.8 mg/dL (8.4-10.2); CARBON DIOXIDE 28 mmol/L (22-30); CHLORIDE 98 mmol/L (98-107); GLUCOSE 112 mg/dL (75-110); PHOSPHORUS 3.2 mg/dL (2.5-4.5); POTASSIUM 3.4 mmol/L (3.6-5.0)
[2020-05-13] MEDS ORDERED: SODIUM BICARBONATE 650 MG TABLET PO SCH (10:00)
[2020-05-13] MEDS: NICOTINE 14 MG/24 HR PATCH.TD24 TD SCH (10:45)
[2020-05-13] MEDS: CALCITRIOL 0.25 MCG CAPSULE PO SCH (10:47)
[2020-05-13] MEDS: ISOSORBIDE DINITRATE 20 MG TABLET PO SCH ×3 (10:47→21:13)
[2020-05-13] MEDS: MAGNESIUM OXIDE 400 MG TABLET PO SCH (10:47)
[2020-05-13] MEDS: DOXYCYCLINE HYCLATE 100 MG in DEXTROSE 5%-WATER 250 ML IV SCH ×2 (10:56→21:13)
--- NOTE | 2020-05-13 11:09 | PDOC CONSULTATION ---
Consultation Consult Date: 05/13/20 Provider Consulted: ISIDORO TOUSSAINT Consult reason:: ESRD History of Present Illness Admission Date/PCP: 05/12/20 17:05 [facility] History of Present Illness: TYLOR JIMENEZ is a 79 year old gentleman known to me with history of ESRD on hemodialysis MWF, history of cystectomy with ileal conduit and urostomy due to bladder cancer, multiple episodes of urosepsis previously, COPD and coronary artery disease who was brought to the emergency room by his daughter yesterday because of fever. Patient is not really a very good historian and does not really have any other complaints. He went to his usual dialysis yesterday at [facility] in the morning and did not have any issues except that he was noted to have strong smell of urine. He went home and apparently was noted to have fever by the daughter so he was brought into the emergency room. In the ED he had a temperature of 103F. He admits having a little bit of cough but he said it is nothing worse than his usual. He admits eating less for the last few days. Otherwise he denies any nausea, vomiting, diarrhea, shortness of breath, chest pains nor abdominal pain. His urinalysis is consi stent with a urinary tract infection. Chest x-ray is negative. Urine culture is positive for gram-negative rods. Patient is currently on doxycycline and IV cefepime. Past Medical History Cardiac Medical History: Reports: Coronary Artery Disease, Hyperlipidemia, Hypertension-primary, Peripheral Vascular Disease Pulmonary Medical History: Reports: Chronic Obstructive Pulmonary Disease (COPD) - Possible, Pneumonia Renal/ Medical History: Reports: End Stage Renal Disease - On hemodialysis Sunday and Sunday with Dr. 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 Hematology Medical History: Reports Anemia of Chronic Kidney Disease Past Surgical History Past Surgical History: Reports: Cardiac Catheterization, Coronary Artery Bypass Graft, Cystectomy - With urostomy bag in the right lower quadrant, Dialysis Ac cess Surgery AVF, Orthopedic Surgery - Right hip hemiarthroplasty August 2016, Vascular Surgery - AAA repair, Other - Nephrostomy tube placement, creation of ileal conduit, prostatectomy Social History Information Source[facility] Records Lives with: Family Smoking Status: Unknown if Ever Smoked Electronic Cigarette use?: No Frequency of Alcohol Use: None Hx Recreational Drug Use: No Drugs: None Hx Prescription Drug Abuse: No - Advance Directive Resuscitation Status: Do Not Resuscitate Family History Family History: Reviewed & Not Pertinent Parental Family History Reviewed: Yes Children Family History Reviewed: Yes Sibling(s) Family History Reviewed.: Yes Medication/Allergy Home Medications: Folic Acid/Vitamin B Comp W-C [Nephrocaps Multiple Vitamin Capsule] 1 cap PO DAILY 04/17/18 Magnesium Oxide [Mag-Ox 400 mg Tablet] 400 mg PO DAILY 04/17/18 Omeprazole 20 mg PO QAM 04/17/18 Sodium Bicarbonate [Sodium Bicarbonate 650 mg Tablet] 650 mg PO BID 04/17/18 Isosorbide Dinitrate [Isordil Titradose 20 mg Tablet] 20 mg PO Q12 01/15/19 Cetirizine HCl [Zyrtec 10 mg Tablet] 10 tab PO DAILY 04/22/19 Atorvastatin Calcium [Lipitor 20 mg Tablet] 40 mg PO QHS 05/12/20 Calcitriol [Rocaltrol] 0.25 mcg PO DAILY 05/12/20 Allergies/Adverse Reactions: ciprofloxacin [From Cipro] Allergy (Verified 05/12/20 18:23) Review of Systems All systems: reviewed and no additional remarkable complaints except as stated Review of Systems: Constitutional: ABSENT: chills, fatigue, headache(s), weight gain, weight loss; presented with fever and decreased appetite Eyes: ABSENT: visual disturbances Ears: ABSENT: hearing changes Cardiovascular: ABSENT: chest pain, dyspnea on exertion, edema, orthropnea, palpitations Respiratory: ABSENT: Dyspnea, hemoptysis; admits cough Gastrointestinal: ABSENT: abdominal pain, constipation, diarrhea, hematemesis, hematochezia, nausea, vomiting Genitourinary: ABSENT: dysuria, hematuria Musculoskeletal: ABSENT: joint swelling Integumentary: ABSENT: rash, wounds Neurological: ABSENT: abnormal gait, abnormal speech, confusion, dizziness, focal weakness, numbness, syncope Psychiatric: ABSENT: anxiety, depression Endocrine: ABSENT: cold intolerance, heat intolerance, polydipsia, polyuria Hematologic/Lymphatic: ABSENT: easy bleeding, easy bruising, lymphadenopathy Physical Exam Vital Signs: Temp Pulse Resp BP Pulse Ox 98.3 F 79 16 97/37 L 99 05/13/20 07:44 05/13/20 08:39 05/13/20 08:39 05/13/20 07:44 05/13/20 08:39 Intake & Output 05/12/20 05/13/20 05/14/20 06:59 06:59 06:59 Intake Total 450 Output Total 100 Balance 350 Weight 53.2 kg Exam: General appearance: No acute distress, cooperative, well-developed, well- nourished Head exam: PRESENT: atraumatic, normocephalic Eye exam: PRESENT: Conjunctiva mildly pale, EOMI, PERRLA. ABSENT: conjunctival injection, scleral icterus Mouth exam: PRESENT: moist, neck supple, tongue midline Neck exam: PRESENT: full ROM. ABSENT: carotid bruit, JVD, lymphadenopathy, thyromegaly Respiratory exam: PRESENT: Coarse breath sounds to auscultation bilaterally. Positive rhonchi ABSENT: rales, stridor, wheezes Cardiovascular exam: PRESENT: RRR, +S1, +S2. ABSENT: systolic murmur Pulses: PRESENT: normal radial pulses, normal dorsalis pedis pulses GI/Abdominal exam: PRESENT: normal bowel sounds, soft. Urostomy bag in the right lower quadrant ABSENT: guarding, mass, tenderness Rectal exam: Deferred Extremities exam: PRESENT: full ROM. ABSENT: calf tenderness, pedal edema Musculoskeletal: PRESENT: full ROM. ABSENT: deformity Neurological exam: PRESENT: alert, Awake, Oriented to person, Oriented to place, Oriented to time, reflexes normal, CN II-XII grossly intact. ABSENT: motor sensory deficit Psychiatric exam: PRESENT: appropriate affect, normal mood. ABSENT: homicidal ideation, suicidal ideation Skin exam: PRESENT: intact, dry, warm. ABSENT: rash Results Laboratory Results: 05/13/20 05:51 05/13/20 05:51 05/12/20 05/12/20 05/12/20 13:40 13:40 15:00 WBC 6.9 RBC 3.65 L Hgb 11.8 L Hct 34.0 L MCV 93 MCH 32.3 MCHC 34.7 RDW 13.2 Plt Count 150 Seg Neutrophils % 87.1 H VBG pH 7.43 H VBG pCO2 49.1 VBG HCO3 31.8 VBG Base Excess 6.4 Sodium 139.4 Potassium 3.7 Chloride 98 Carbon Dioxide 29 Anion Gap 12 BUN 15 Creatinine 3.45 H Est GFR ( Amer) 21 L Glucose 136 H Lactic Acid Calcium 8.5 Phosphorus Magnesium Total Bilirubin 0.8 AST 22 Alkaline Phosphatase 126 Total Protein 6.8 Albumin 4.0 Urine Color Urine Appearance Urine pH Ur Specific Godwin Urine Protein Urine Glucose (UA) Urine Ketones Urine Blood Urine Nitrite Ur Leukocyte Esterase Urine WBC (Auto) Urine RBC (Auto) 05/12/20 05/12/20 05/13/20 15:00 15:40 05:51 WBC 4.5 RBC 3.23 L Hgb 10.4 L Hct 29.9 L MCV 93 MCH 32.2 MCHC 34.7 RDW 13.1 Plt Count 120 L Seg Neutrophils % 76.5 VBG pH VBG pCO2 VBG HCO3 VBG Base Excess Sodium Potassium Chloride Carbon Dioxide Anion Gap BUN Creatinine Est GFR ( Amer) Glucose Lactic Acid 1.2 Calcium Phosphorus Magnesium Total Bilirubin AST Alkaline Phosphatase Total Protein Albumin Urine Color HAJA Urine Appearance CLOUDY Urine pH 7.0 Ur Specific Godwin 1.015 Urine Protein >=500 H Urine Glucose (UA) NEGATIVE Urine Ketones TRACE H Urine Blood SMALL H Urine Nitrite NEGATIVE Ur Leukocyte Esterase LARGE H Urine WBC (Auto) >182 Urine RBC (Auto) 20 05/13/20 05:51 WBC RBC Hgb Hct MCV MCH MCHC RDW Plt Count Seg Neutrophils % VBG pH VBG pCO2 VBG HCO3 VBG Base Excess Sodium 137.0 Potassium 3.4 L Chloride 98 Carbon Dioxide 28 Anion Gap 11 BUN 25 H Creatinine 5.25 H Est GFR ( Amer) 13 L Glucose 112 H Lactic Acid Calcium 7.8 L Phosphorus 3.2 Magnesium 1.7 Total Bilirubin AST Alkaline Phosphatase Total Protein Albumin 3.3 L Urine Color Urine Appearance Urine pH Ur Specific Godwin Urine Protein Urine Glucose (UA) Urine Ketones Urine Blood Urine Nitrite Ur Leukocyte Esterase Urine WBC (Auto) Urine RBC (Auto) Impressions: Chest X-Ray 05/12/20 14:16 IMPRESSION: No acute findings. Assessment & Plan - Diagnosis (1) Acute UTI (urinary tract infection) Is this a current diagnosis for this admission?: Yes Plan: Due to gram-negative rods. On IV cefepime and doxycycline per hospitalist service. (2) ESRD (end stage renal disease) on dialysis Is this a current diagnosis for this admission?: Yes Plan: Last dialysis was yesterday. We will plan for dialysis tomorrow. (3) Hypokalemia Is this a current diagnosis for this admission?: Yes Plan: Replace as needed. Will give oral potassium chloride to 40 mEq x 1 dose today. (4) Anemia in chronic kidney disease (CKD) Qualifiers: Chronic kidney disease stage: on chronic dialysis Qualified Code(s): N18.6 - End stage renal disease; D63.1 - Anemia in chronic kidney disease; D63.1 - Anemia in chronic kidney disease; Z99.2 - Dependence on renal dialysis; Z99.2 - Dependence on renal dialysis; Z99.2 - Dependence on renal dialysis; Z99.2 - Dependence on renal dialysis Is this a current diagnosis for this admission?: Yes Plan: Retacrit as needed on dialysis. (5) COPD (chronic obstructive pulmonary disease) Qualifiers: COPD type: chronic bronchitis Chronic bronchitis type: unspecified Qualified Code(s): J42 - Unspecified chronic bronchitis Is this a current diagnosis for this admission?: Yes Plan: On neb treatments per hospitalist. (6) Hypertension Qualifiers: Hypertension type: essential hypertension Qualified Code(s): I10 - Essential (primary) hypertension Is this a current diagnosis for this admission?: Yes - Notes Notes: Thank you very much for this consultation.
--- NOTE | 2020-05-13 11:48 | PDOC PROGRESS REPORT ---
Subjective Progress Note for:: 05/13/20 Subjective:: Tired today. Breathing is much less congested. Denies any discomfort. Reason For Visit: END-STAGE KIDNEY DISEASE ON HEMODIALYSIS, Physical Exam Vital Signs: Temp Pulse Resp BP Pulse Ox 98.3 F 79 16 97/37 L 99 05/13/20 07:44 05/13/20 08:39 05/13/20 08:39 05/13/20 07:44 05/13/20 08:39 Intake & Output 05/12/20 05/13/20 05/14/20 06:59 06:59 06:59 Intake Total 450 250 Output Total 100 Balance 350 250 Weight 53.2 kg General appearance: PRESENT: no acute distress, cooperative, well-developed Head exam: PRESENT: atraumatic, normocephalic Ear exam: PRESENT: normal external ear exam. ABSENT: bleeding, drainage Mouth exam: PRESENT: dry mucosa, tongue midline Respiratory exam: PRESENT: clear to auscultation jenni - Anteriorly, symmetrical, unlabored. ABSENT: prolonged expiratory phas, rales, rhonchi - Improved, tachypnea, wheezes Cardiovascular exam: PRESENT: RRR, +S1, +S2. ABSENT: bradycardia, diastolic murmur, irregular rhythm, systolic murmur, tachycardia GI/Abdominal exam: PRESENT: normal bowel sounds, soft, other - Urostomy. ABSENT: distended, tenderness Rectal exam: PRESENT: deferred Gentrourinary exam: ABSENT: indwelling catheter Extremities exam: ABSENT: pedal edema Musculoskeletal exam: PRESENT: normal inspection Neurological exam: PRESENT: alert, awake, oriented to person, oriented to place, oriented to situation. ABSENT: altered Psychiatric exam: PRESENT: flat affect. ABSENT: agitated, anxious Focused psych exam: ABSENT: delusional, paranoid, restlessness Results Laboratory Results: 05/13/20 05:51 05/13/20 05:51 05/12/20 05/12/20 05/12/20 13:40 13:40 15:00 WBC 6.9 RBC 3.65 L Hgb 11.8 L Hct 34.0 L MCV 93 MCH 32.3 MCHC 34.7 RDW 13.2 Plt Count 150 Seg Neutrophils % 87.1 H VBG pH 7.43 H VBG pCO2 49.1 VBG HCO3 31.8 VBG Base Excess 6.4 Sodium 139.4 Potassium 3.7 Chloride 98 Carbon Dioxide 29 Anion Gap 12 BUN 15 Creatinine 3.45 H Est GFR ( Amer) 21 L Glucose 136 H Lactic Acid Calcium 8.5 Phosphorus Magnesium Total Bilirubin 0.8 AST 22 Alkaline Phosphatase 126 Total Protein 6.8 Albumin 4.0 Urine Color Urine Appearance Urine pH Ur Specific [place] Urine Protein Urine Glucose (UA) Urine Ketones Urine Blood Urine Nitrite Ur Leukocyte Esterase Urine WBC (Auto) Urine RBC (Auto) 05/12/20 05/12/20 05/13/20 15:00 15:40 05:51 WBC 4.5 RBC 3.23 L Hgb 10.4 L Hct 29.9 L MCV 93 MCH 32.2 MCHC 34.7 RDW 13.1 Plt Count 120 L Seg Neutrophils % 76.5 VBG pH VBG pCO2 VBG HCO3 VBG Base Excess Sodium Potassium Chloride Carbon Dioxide Anion Gap BUN Creatinine Est GFR ( Amer) Glucose Lactic Acid 1.2 Calcium Phosphorus Magnesium Total Bilirubin AST Alkaline Phosphatase Total Protein Albumin Urine Color HAJA Urine Appearance CLOUDY Urine pH 7.0 Ur Specific [place] 1.015 Urine Protein >=500 H Urine Glucose (UA) NEGATIVE Urine Ketones TRACE H Urine Blood SMALL H Urine Nitrite NEGATIVE Ur Leukocyte Esterase LARGE H Urine WBC (Auto) >182 Urine RBC (Auto) 20 05/13/20 05:51 WBC RBC Hgb Hct MCV MCH MCHC RDW Plt Count Seg Neutrophils % VBG pH VBG pCO2 VBG HCO3 VBG Base Excess Sodium 137.0 Potassium 3.4 L Chloride 98 Carbon Dioxide 28 Anion Gap 11 BUN 25 H Creatinine 5.25 H Est GFR ( Amer) 13 L Glucose 112 H Lactic Acid Calcium 7.8 L Phosphorus 3.2 Magnesium 1.7 Total Bilirubin AST Alkaline Phosphatase Total Protein Albumin 3.3 L Urine Color Urine Appearance Urine pH Ur Specific [place] Urine Protein Urine Glucose (UA) Urine Ketones Urine Blood Urine Nitrite Ur Leukocyte Esterase Urine WBC (Auto) Urine RBC (Auto) Impressions: Chest X-Ray 05/12/20 14:16 IMPRESSION: No acute findings. Assessment and Plan - Diagnosis (1) Acute UTI (urinary tract infection) Is this a current diagnosis for this admission?: Yes (2) Acute bronchitis Qualifiers: Bronchitis organism: unspecified organism Qualified Code(s): J20.9 - Acute bronchitis, unspecified Is this a current diagnosis for this admission?: Yes (3) Anemia in chronic kidney disease (CKD) Qualifiers: Chronic kidney disease stage: on chronic dialysis Qualified Code(s): N18.6 - End stage renal disease; D63.1 - Anemia in chronic kidney disease; D63.1 - Anemia in chronic kidney disease; Z99.2 - Dependence on renal dialysis; Z99.2 - Dependence on renal dialysis; Z99.2 - Dependence on renal dialysis; Z99.2 - Dependence on renal dialysis Is this a current diagnosis for this admission?: Yes (4) ESRD (end stage renal disease) on dialysis Is this a current diagnosis for this admission?: Yes (5) Acute and chronic respiratory failure with hypoxia Is this a current diagnosis for this admission?: Yes (6) COPD (chronic obstructive pulmonary disease) Qualifiers: COPD type: chronic bronchitis Chronic bronchitis type: unspecified Qualif ied Code(s): J42 - Unspecified chronic bronchitis Is this a current diagnosis for this admission?: Yes (7) Hyperlipidemia Qualifiers: Hyperlipidemia type: unspecified Qualified Code(s): E78.5 - Hyperlipidemia, unspecified Is this a current diagnosis for this admission?: Yes (8) Hypertension Qualifiers: Hypertension type: essential hypertension Qualified Code(s): I10 - Essential (primary) hypertension Is this a current diagnosis for this admission?: Yes - Plan Summary Summary: 05/12/2020 Urinary tract infection-blood cultures pending. Patient with recurrent infections over time. Renal dosing cefepime to cover gram negatives. Acute bronchitis with COPD-doxycycline. No adjustment for renal function Continue to monitor blood pressure. Currently no antihypertensive medications. Continue statin therapy and isosorbide dinitrate. End-stage kidney disease on hemodialysis-nephrology is aware. Patient did have dialysis today. Will need dialysis on Sunday. We will continue sodium bicarbonate and calcitriol. Blood cultures pending as is urine culture. Adjust antibiotic therapy based on microbiology results. 05/13/2020 Renal failure-appreciate Dr. Cespedes's input. Urinary tract infection-preliminary shows gram-negative bacilli. Await final identification and sensitivities before changing antibiotics COPD with bronchitis-continue doxycycline Anemia-stable - Time Time Spent with patient: Less than 15 minutes Medications reviewed and adjusted accordingly: Yes Anticipated Discharge Disposition: Home with Home Health Anticipated Discharge Timeframe: within 72 hours
[2020-05-13] MEDS ORDERED: POTASSIUM CHLORIDE 10 MEQ TABLET.ER PO ONE (12:00)
[2020-05-13] MEDS: CEFEPIME HCL 0.5 GM in NORMAL SALINE 25 ML IV SCH (20:11)
[2020-05-13] MEDS ORDERED: CEFEPIME HCL 0.5 GM in DEXTROSE 5%-WATER 25 ML IV SCH (21:00)
[2020-05-13] MEDS: ATORVASTATIN CALCIUM 40 MG TABLET PO SCH (21:14)
[2020-05-14] MEDS: IPRATROPIUM/ALBUTEROL 0.5-2.5 MG/3 ML AMPUL NEB SCH ×3 (00:45→15:32)
[2020-05-14] MEDS ORDERED: NORMAL SALINE 1000 ML 1,000 ML IV PRN (05:00)
[2020-05-14] MEDS: PANTOPRAZOLE SODIUM 20 MG TABLET.DR PO SCH (05:33)
[2020-05-14] MEDS: HEPARIN SOD (PORCINE) 5,000 UNIT/ML 1 ML VIAL SUBCUT SCH ×3 (05:34→22:26)
[2020-05-14 05:38] LABS: ALBUMIN 3.4 g/dL (3.5-5.0); ANION GAP 12 (5-19); BLOOD UREA NITROGEN 41 mg/dL (7-20); CALCIUM 7.9 mg/dL (8.4-10.2); CARBON DIOXIDE 27 mmol/L (22-30); CHLORIDE 100 mmol/L (98-107); GLUCOSE 100 mg/dL (75-110); PHOSPHORUS 4.4 mg/dL (2.5-4.5); POTASSIUM 3.9 mmol/L (3.6-5.0)
[2020-05-14 05:39] LABS: ABSOLUTE EOSINOPHILS # (AUTO) 0.1 10^3/uL (0.0-0.6); ABSOLUTE LYMPHOCYTES (AUTO) 1.1 10^3/uL (0.5-4.7); ABSOLUTE MONOCYTES (AUTO) 0.6 10^3/uL (0.1-1.4); ABSOLUTE NEUT (AUTO) 2.8 10^3/uL (1.7-8.2); BASOPHILS % (AUTO) 0.7 % (0-2); EOSINOPHILS % (AUTO) 2.8 % (0-6); HEMATOCRIT 31.8 % (37.9-51.0); LYMPHOCYTES % (AUTO) 24.1 % (13-45); MEAN CORPUSCULAR HEMOGLOBIN 32.2 pg (27.0-33.4); MEAN CORPUSCULAR HGB CONC 34.6 g/dL (32.0-36.0); MEAN CORPUSCULAR VOLUME 93 fl (80-97); MONOCYTES % (AUTO) 12.2 % (3-13); PLATELET COUNT 120 10^3/uL (150-450); RED BLOOD COUNT 3.41 10^6/uL (4.35-5.55); RED CELL DISTRIBUTION WIDTH 13.2 % (11.5-14.0); SEGMENTED NEUTROPHILS % (AUTO) 60.2 % (42-78); TOTAL CELLS COUNTED % (AUTO) 100 %; WHITE BLOOD COUNT 4.6 10^3/uL (4.0-10.5)
--- NOTE | 2020-05-14 09:19 | PDOC PROGRESS REPORT ---
Subjective Progress Note for:: 05/14/20 Subjective:: I am seeing the patient during dialysis this morning. His blood pressure is relatively on the low side. He tells me he is tired and sleepy. He denies any chest pains no shortness of breath. He is otherwise comfortable and tolerating dialysis. Reason For Visit: END-STAGE KIDNEY DISEASE ON HEMODIALYSIS, Physical Exam Vital Signs: Temp Pulse Resp BP Pulse Ox 98.4 F 72 16 97/44 L 94 05/14/20 00:17 05/14/20 08:10 05/14/20 08:10 05/14/20 03:57 05/14/20 03:53 Intake & Output 05/13/20 05/14/20 05/15/20 06:59 06:59 06:59 Intake Total 450 988 Output Total 100 325 Balance 350 663 Weight 53.2 kg 54.6 kg Vitals on dialysis: Blood pressure 104/47, heart rate of 62, blood flow rate of 150 mL/min and dialysate flow rate of 800 mL/min using his AV fistula. Exam: General appearance: PRESENT: no acute distress, cooperative, well-developed, well-nourished Head exam: PRESENT: atraumatic, normocephalic Eye exam: PRESENT: conjunctiva pink, PERRLA. ABSENT: scleral icterus Neck exam: ABSENT: JVD Respiratory exam: PRESENT: Normal breath sounds. ABSENT: crackles, rales, rhonchi, unlabored, wheezes Cardiovascular exam: PRESENT: Regular rate rhythm -+S1, +S2. ABSENT: diastolic murmur, systolic murmur GI/Abdominal exam: PRESENT: normal bowel sounds, soft. ABSENT: guarding, mass, tenderness Extremities exam: ABSENT: No edema Neurological exam: PRESENT: alert, awake, oriented to person, place and time. Skin exam: PRESENT: dry, warm, Results Laboratory Results: 05/14/20 05:05 05/14/20 05:05 05/14/20 05/14/20 05:05 05:05 WBC 4.6 RBC 3.41 L Hgb 11.0 L Hct 31.8 L MCV 93 MCH 32.2 MCHC 34.6 RDW 13.2 Plt Count 120 L Seg Neutrophils % 60.2 Sodium 139.3 Potassium 3.9 Chloride 100 Carbon Dioxide 27 Anion Gap 12 BUN 41 H Creatinine 7.06 H Est GFR ( Amer) 9 L Glucose 100 Calcium 7.9 L Phosphorus 4.4 Albumin 3.4 L Impressions: Chest X-Ray 05/12/20 14:16 IMPRESSION: No acute findings. Assessment & Plan - Diagnosis (1) ESRD (end stage renal disease) on dialysis Is this a current diagnosis for this admission?: Yes Plan: We will do dialysis today for 3 hours, using the patient's AV fistula, with 3 potassium bath, blood flow rate of 450 mL per minute, dialysate flow rate of 800 mL per minute, ultrafiltration 0.5 to 1 L as tolerated, no heparin and no Retacrit. Patient currently being monitored throughout dialysis treatment. We will adjust prescription accordingly. (2) Acute UTI (urinary tract infection) Is this a current diagnosis for this admission?: Yes Plan: Due to gram-negative rods. On IV cefepime and doxycycline per hospitalist service. (3) Hypokalemia Is this a current diagnosis for this admission?: Yes Plan: Improved. Using higher potassium bath during dialysis. (4) Anemia in chronic kidney disease (CKD) Qualifiers: Chronic kidney disease stage: on chronic dialysis Qualified Code(s): N18.6 - End stage renal disease; D63.1 - Anemia in chronic kidney disease; D63.1 - Anemia in chronic kidney disease; Z99.2 - Dependence on renal dialysis; Z99.2 - Dependence on renal dialysis; Z99.2 - Dependence on renal dialysis; Z99.2 - Dependence on renal dialysis Is this a current diagnosis for this admission?: Yes Plan: No need of Retacrit today during dialysis. (5) COPD (chronic obstructive pulmonary disease) Qualifiers: COPD type: chronic bronchitis Chronic bronchitis type: unspecified Qualified Code(s): J42 - Unspecified chronic bronchitis Is this a current diagnosis for this admission?: Yes Plan: On neb treatments per hospitalist. (6) Hypertension Qualifiers: Hypertension type: essential hypertension Qualified Code(s): I10 - Essential (primary) hypertension Is this a current diagnosis for this admission?: Yes - Time Time with patient: 15-25 minutes
[2020-05-14] MEDS: ISOSORBIDE DINITRATE 20 MG TABLET PO SCH ×2 (11:20→21:59)
[2020-05-14] MEDS: CALCITRIOL 0.25 MCG CAPSULE PO SCH (11:31)
[2020-05-14] MEDS: MAGNESIUM OXIDE 400 MG TABLET PO SCH (11:31)
[2020-05-14] MEDS: NICOTINE 14 MG/24 HR PATCH.TD24 TD SCH (11:31)
--- NOTE | 2020-05-14 19:32 | PDOC PROGRESS REPORT ---
Subjective Progress Note for:: 05/14/20 Subjective:: The patient completed hemodialysis earlier today. He looks a little tired but is asking about when he can go home. I explained that I would like to have the final identification and sensitivities of the bacteria in his urine to prescribe appropriate antibiotic therapy at home. He understands and is in agreement. Reason For Visit: END-STAGE KIDNEY DISEASE ON HEMODIALYSIS, Physical Exam Vital Signs: Temp Pulse Resp BP Pulse Ox 98.5 F 72 18 112/52 L 95 05/14/20 15:37 05/14/20 15:37 05/14/20 15:37 05/14/20 15:37 05/14/20 15:37 Intake & Output 05/13/20 05/14/20 05/15/20 06:59 06:59 06:59 Intake Total 450 988 600 Output Total 100 325 650 Balance 350 663 -50 Weight 53.2 kg 54.6 kg General appearance: PRESENT: no acute distress, well-developed Head exam: PRESENT: atraumatic, normocephalic Eye exam: PRESENT: conjunctiva pale. ABSENT: scleral icterus Ear exam: PRESENT: normal external ear exam. ABSENT: bleeding, drainage Respiratory exam: PRESENT: clear to auscultation jenni, symmetrical, unlabored. ABSENT: rales, rhonchi, tachypnea, wheezes Cardiovascular exam: PRESENT: RRR, +S1, +S2, other - Occasional irregular beats. ABSENT: bradycardia, diastolic murmur, irregular rhythm, systolic murmur, tachycardia GI/Abdominal exam: PRESENT: normal bowel sounds, soft. ABSENT: distended, guarding, tenderness Rectal exam: PRESENT: deferred Gentrourinary exam: ABSENT: indwelling catheter Extremities exam: PRESENT: other - Large AV fistula left arm. ABSENT: pedal edema Musculoskeletal exam: PRESENT: ambulatory, normal inspection Neurological exam: PRESENT: alert, awake, oriented to person, oriented to place, oriented to situation. ABSENT: altered Psychiatric exam: PRESENT: flat affect. ABSENT: agitated, anxious Focused psych exam: ABSENT: delusional, paranoid, restlessness Skin exam: PRESENT: dry, normal color, warm. ABSENT: rash Results Laboratory Results: 05/14/20 05:05 05/14/20 05:05 05/14/20 05/14/20 05:05 05:05 WBC 4.6 RBC 3.41 L Hgb 11.0 L Hct 31.8 L MCV 93 MCH 32.2 MCHC 34.6 RDW 13.2 Plt Count 120 L Seg Neutrophils % 60.2 Sodium 139.3 Potassium 3.9 Chloride 100 Carbon Dioxide 27 Anion Gap 12 BUN 41 H Creatinine 7.06 H Est GFR ( Amer) 9 L Glucose 100 Calcium 7.9 L Phosphorus 4.4 Albumin 3.4 L Impressions: Chest X-Ray 05/12/20 14:16 IMPRESSION: No acute findings. Assessment and Plan - Diagnosis (1) Acute UTI (urinary tract infection) Is this a current diagnosis for this admission?: Yes (2) Acute bronchitis Qualifiers: Bronchitis organism: unspecified organism Qualified Code(s): J20.9 - Acute bronchitis, unspecified Is this a current diagnosis for this admission?: Yes (3) Anemia in chronic kidney disease (CKD) Qualifiers: Chronic kidney disease stage: on chronic dialysis Qualified Code(s): N18.6 - End stage renal disease; D63.1 - Anemia in chronic kidney disease; D63.1 - Anemia in chronic kidney disease; Z99.2 - Dependence on renal dialysis; Z99.2 - Dependence on renal dialysis; Z99.2 - Dependence on renal dialysis; Z99.2 - Dependence on renal dialysis Is this a current diagnosis for this admission?: Yes (4) ESRD (end stage renal disease) on dialysis Is this a current diagnosis for this admission?: Yes (5) Acute and chronic respiratory failure with hypoxia Is this a current diagnosis for this admission?: Yes (6) COPD (chronic obstructive pulmonary disease) Qualifiers: COPD type: chronic bronchitis Chronic bronchitis type: unspecified Qualified Code(s): J42 - Unspecified chronic bronchitis Is this a current diagnosis for this admission?: Yes (7) Hyperlipidemia Qualifiers: Hyperlipidemia type: unspecified Qualified Code(s): E78.5 - Hyperlipidemia, unspecified Is this a current diagnosis for this admission?: Yes (8) Hypertension Qualifiers: Hypertension type: essential hypertension Qualified Code(s): I10 - Essential (primary) hypertension Is this a current diagnosis for this admission?: Yes - Plan Summary Summary: 05/12/2020 Urinary tract infection-blood cultures pending. Patient with recurrent infections over time. Renal dosing cefepime to cover gram negatives. Acute bronchitis with COPD-doxycycline. No adjustment for renal function Continue to monitor blood pressure. Currently no antihypertensive medications. Continue statin therapy and isosorbide dinitrate. End-stage kidney disease on hemodialysis-nephrology is aware. Patient did have dialysis today. Will need dialysis on Sunday. We will continue sodium bicarbonate and calcitriol. Blood cultures pending as is urine culture. Adjust antibiotic therapy based on microbiology results. 05/13/2020 Renal failure-appreciate Dr. Cespedes's input. Urinary tract infection-preliminary shows gram-negative bacilli. Await final identification and sensitivities before changing antibiotics COPD with bronchitis-continue doxycycline Anemia-stable 05/14/2020 The patient is just back from dialysis. His creatinine was up to 7.06 this morning. He tolerated dialysis without difficulty. The preliminary on the urine culture reveals 3 gram-negative bacilli. With a urostomy bag it is very difficult to know how accurate the culture is. He did not have any positive blood cultures. He is responding to antibiotic therapy. Bronchitis-resolved with doxycycline Chronic anemia with kidney disease-hemoglobin has been stable. No evidence of bleeding. Hypertension-blood pressures are actually running on the low side. No antihypertensive medications at this time. - Time Time Spent with patient: Less than 15 minutes Medications reviewed and adjusted accordingly: Yes Anticipated Discharge Disposition: Home, Self Care Anticipated Discharge Timeframe: within 48 hours
[2020-05-14] MEDS: CEFEPIME HCL 0.5 GM in NORMAL SALINE 25 ML IV SCH (20:42)
[2020-05-14] MEDS: DOXYCYCLINE HYCLATE 100 MG TABLET PO SCH (21:59)
[2020-05-14] MEDS: ATORVASTATIN CALCIUM 40 MG TABLET PO SCH (21:59)
[2020-05-15] MEDS: IPRATROPIUM/ALBUTEROL 0.5-2.5 MG/3 ML AMPUL NEB SCH ×2 (00:57→07:57)
[2020-05-15] MEDS: PANTOPRAZOLE SODIUM 20 MG TABLET.DR PO SCH (05:13)
[2020-05-15] MEDS: HEPARIN SOD (PORCINE) 5,000 UNIT/ML 1 ML VIAL SUBCUT SCH (05:14)
[2020-05-15] MEDS ORDERED: INFLUENZA QUAD (6MOS+) 2020-21 VAC 0.5 ML SYR IM ONE (08:00)
--- NOTE | 2020-05-15 10:13 | PDOC DISCHARGE SUMMARY ---
Impression - Admit/DC Date/PCP Admission Date/Primary Care Provider: 05/12/20 17:05 [facility] Discharge Date: 05/15/20 - Discharge Diagnosis (1) Acute UTI (urinary tract infection) Is this a current diagnosis for this admission?: Yes (2) Acute bronchitis Is this a current diagnosis for this admission?: Yes (3) Anemia in chronic kidney disease (CKD) Is this a current diagnosis for this admission?: Yes (4) ESRD (end stage renal disease) on dialysis Is this a current diagnosis for this admission?: Yes (5) Acute and chronic respiratory failure with hypoxia Is this a current diagnosis for this admission?: Yes (6) COPD (chronic obstructive pulmonary disease) Is this a current diagnosis for this admission?: Yes (7) Hyperlipidemia Is this a current diagnosis for this admission?: Yes (8) Hypertension Is this a current diagnosis for this admission?: Yes - Assessment Summary: 05/12/2020 Urinary tract infection-blood cultures pending. Patient with recurrent infections over time. Renal dosing cefepime to cover gram negatives. Acute bronchitis with COPD-doxycycline. No adjustment for renal function Continue to monitor blood pressure. Currently no antihypertensive medications. Continue statin therapy and isosorbide dinitrate. End-stage kidney disease on hemodialysis-nephrology is aware. Patient did have dialysis today. Will need dialysis on Sunday. We will continue sodium bicarbonate and calcitriol. Blood cultures pending as is urine culture. Adjust antibiotic therapy based on microbiology results. 05/13/2020 Renal failure-appreciate Dr. Cespedes's input. Urinary tract infection-preliminary shows gram-negative bacilli. Await final identification and sensitivities before changing antibiotics COPD with bronchitis-continue doxycycline Anemia-stable 05/14/2020 The patient is just back from dialysis. His creatinine was up to 7.06 this morning. He tolerated dialysis without difficulty. The preliminary on the urine culture reveals 3 gram-negative bacilli. With a urostomy bag it is very difficult to know how accurate the culture is. He did not have any positive blood cultures. He is responding to antibiotic therapy. Bronchitis-resolved with doxycycline Chronic anemia with kidney disease-hemoglobin has been stable. No evidence of bleeding. Hypertension-blood pressures are actually running on the low side. No antihypertensive medications at this time. - Additional Information Resuscitation Status: Do Not Resuscitate Discharge Diet: Other (Comments) - Renal Discharge Activity: Activity As Tolerated [facility]errals: [facility] [Primary [facility]] - Follow up as needed Prescriptions: Amoxicillin/Potassium Clav [Augmentin 500-125 Tablet] 1 each PO QPM #5 tablet Home Medications: Folic Acid/Vitamin B Comp W-C [Nephrocaps Multiple Vitamin Capsule] 1 cap PO DAILY 04/17/18 Magnesium Oxide [Mag-Ox 400 mg Tablet] 400 mg PO DAILY 04/17/18 Omeprazole 20 mg PO QAM 04/17/18 Sodium Bicarbonate [Sodium Bicarbonate 650 mg Tablet] 650 mg PO BID 04/17/18 Isosorbide Dinitrate [Isordil Titradose 20 mg Tablet] 20 mg PO Q12 01/15/19 Cetirizine HCl [Zyrtec 10 mg Tablet] 10 tab PO DAILY 04/22/19 Atorvastatin Calcium [Lipitor 20 mg Tablet] 40 mg PO QHS 05/12/20 Calcitriol [Rocaltrol] 0.25 mcg PO DAILY 05/12/20 Amoxicillin/Potassium Clav [Augmentin 500-125 Tablet] 1 each PO QPM #5 tablet 05/15/20 Atorvastatin Calcium [Lipitor 40 mg Tablet] 40 mg PO QHS tablet 05/15/20 Calcitriol [Rocaltrol 0.25 mcg Capsule] 0.25 mcg PO DAILY capsule 05/15/20 Cetirizine HCl [Zyrtec 10 mg Tablet] 10 mg PO DAILYP PRN tablet 05/15/20 Isosorbide Dinitrate [Isordil Titradose 20 mg Tablet] 20 mg PO Q12 tablet 05/15/20 Magnesium Oxide [Mag-Ox 400 mg Tablet] 400 mg PO DAILY tablet 05/15/20 Nicotine [Nicoderm 14 mg/24 Hr Transdermal Patch] 1 each TD DAILY patch.[id number] 05/15/20 History of Present Illiness History of Present Illness: TYLOR JIMENEZ is a 79 year old male who underwent hemodialysis earlier today without complication. He has a ureterostomy and had multiple admissions for urinary tract infections. He also has COPD and smokes at least 1/2 pack of cigarettes daily. Temperature in the urgency department registered at 103F. When questioning the patient states that he does not feel poorly. He has congested breath sounds. Fistula in the left arm with dressings consistent with dialysis earlier today. Urinalysis was positive for white blood cells, large amount of leukocyte esterase and 3+ bacteria. Chest x-ray does not suggest acute infiltrate. The patient will be admitted and given IV antibiotics. His map was not below 65 and his increased creatinine in fact is his baseline. He did not have thrombocytopenia or elevated bilirubin and does not meet sepsis criteria. We will give IV fluids judiciously with his underlying end-stage kidney disease. Hospital Course Hospital Course: Unremarkable hospital course. The urinary tract infection responded to antibiotic therapy and with the doxycycline his congested cough resolved quickly. Despite a history of hypertension his blood pressures have been on the low side. No antihypertensive medication at this time. Morganella, E. coli and Klebsiella grew from the urine. They are all sensitive to Augmentin. This will also cover most respiratory infections. I will continue his antibiotics on an outpatient basis with Augmentin dosed for his renal function. Physical Exam Vital Signs: Temp Pulse Resp BP Pulse Ox 97.9 F 85 16 110/55 L 96 05/15/20 07:52 05/15/20 08:00 05/15/20 08:00 05/15/20 07:52 05/15/20 08:00 Intake & Output 05/14/20 05/15/20 05/16/20 06:59 06:59 05:59 Intake Total 988 600 Output Total 325 795 Balance 663 -195 Weight 54.6 kg 55.5 kg General appearance: PRESENT: no acute distress, cooperative, well-developed Head exam: PRESENT: atraumatic, normocephalic Cardiovascular exam: PRESENT: RRR, +S1, +S2, systolic murmur. ABSENT: bradycardia, diastolic murmur, irregular rhythm, tachycardia GI/Abdominal exam: PRESENT: normal bowel sounds, soft. ABSENT: tenderness Extremities exam: ABSENT: pedal edema Neurological exam: PRESENT: alert, awake, oriented to person, oriented to place, oriented to situation Psychiatric exam: ABSENT: agitated, anxious Focused psych exam: ABSENT: delusional, paranoid, restlessness Results Laboratory Results: WBC 4.6 10^3/uL (4.0-10.5) 05/14/20 05:05 RBC 3.41 10^6/uL (4.35-5.55) L 05/14/20 05:05 Hgb 11.0 g/dL (13.5-17.0) L 05/14/20 05:05 Hct 31.8 % (37.9-51.0) L 05/14/20 05:05 MCV 93 fl (80-97) 05/14/20 05:05 MCH 32.2 pg (27.0-33.4) 05/14/20 05:05 MCHC 34.6 g/dL (32.0-36.0) 05/14/20 05:05 RDW 13.2 % (11.5-14.0) 05/14/20 05:05 Plt Count 120 10^3/uL (150-450) L 05/14/20 05:05 Lymph % (Auto) 24.1 % (13-45) 05/14/20 05:05 [place] % (Auto) 12.2 % (3-13) 05/14/20 05:05 Eos % (Auto) 2.8 % (0-6) 05/14/20 05:05 Baso % (Auto) 0.7 % (0-2) 05/14/20 05:05 Absolute Neuts (auto) 2.8 10^3/uL (1.7-8.2) 05/14/20 05:05 Absolute Lymphs (auto) 1.1 10^3/uL (0.5-4.7) 05/14/20 05:05 Absolute Monos (auto) 0.6 10^3/uL (0.1-1.4) 05/14/20 05:05 Absolute Eos (auto) 0.1 10^3/uL (0.0-0.6) 05/14/20 05:05 Absolute Basos (auto) 0.0 10^3/uL (0.0-0.2) 05/14/20 05:05 Seg Neutrophils % 60.2 % (42-78) 05/14/20 05:05 PT 13.6 SEC (11.4-15.4) 05/12/20 13:40 INR 1.02 05/12/20 13:40 VBG pH 7.43 (7.30-7.42) H 05/12/20 15:00 VBG pCO2 49.1 mmHg (35-63) 05/12/20 15:00 VBG HCO3 31.8 mmol/L (20-32) 05/12/20 15:00 VBG Base Excess 6.4 mmol/L 05/12/20 15:00 Sodium 139.3 mmol/L (137-145) 05/14/20 05:05 Potassium 3.9 mmol/L (3.6-5.0) 05/14/20 05:05 Chloride 100 mmol/L (98-107) 05/14/20 05:05 Carbon Dioxide 27 mmol/L (22-30) 05/14/20 05:05 Anion Gap 12 (5-19) 05/14/20 05:05 BUN 41 mg/dL (7-20) H 05/14/20 05:05 Creatinine 7.06 mg/dL (0.52-1.25) H 05/14/20 05:05 Est GFR ( Amer) 9 (>60) L 05/14/20 05:05 Est GFR (MDRD) Non-Af 8 (>60) L 05/14/20 05:05 Glucose 100 mg/dL (75-110) 05/14/20 05:05 POC Glucose 135 mg/dL (70-110) H 05/13/20 11:48 Lactic Acid 1.2 mmol/L (0.7-2.1) 05/12/20 15:00 Calcium 7.9 mg/dL (8.4-10.2) L 05/14/20 05:05 Phosphorus 4.4 mg/dL (2.5-4.5) 05/14/20 05:05 Magnesium 1.7 mg/dL (1.6-2.3) 05/13/20 05:51 Total Bilirubin 0.8 mg/dL (0.2-1.3) 05/12/20 13:40 Direct Bilirubin 0.4 mg/dL (0.0-0.4) 05/12/20 13:40 Neonat Total Bilirubin Not Reportable 05/12/20 13:40 Neonat Direct Bilirubin Not Reportable 05/12/20 13:40 Neonat Indirect Bili Not Reportable 05/12/20 13:40 AST 22 U/L (17-59) 05/12/20 13:40 ALT 20 U/L (<50) 05/12/20 13:40 Alkaline Phosphatase 126 U/L (38-126) 05/12/20 13:40 Total Protein 6.8 g/dL (6.3-8.2) 05/12/20 13:40 Albumin 3.4 g/dL (3.5-5.0) L 05/14/20 05:05 Urine Color HAJA 05/12/20 15:40 Urine Appearance CLOUDY 05/12/20 15:40 Urine pH 7.0 (5.0-9.0) 05/12/20 15:40 Ur Specific [place] 1.015 05/12/20 15:40 Urine Protein >=500 mg/dL (NEGATIVE) H 05/12/20 15:40 Urine Glucose (UA) NEGATIVE mg/dL (NEGATIVE) 05/12/20 15:40 Urine Ketones TRACE mg/dL (NEGATIVE) H 05/12/20 15:40 Urine Blood SMALL (NEGATIVE) H 05/12/20 15:40 Urine Nitrite NEGATIVE (NEGATIVE) 05/12/20 15:40 Urine Bilirubin NEGATIVE (NEGATIVE) 05/12/20 15:40 Urine Urobilinogen NEGATIVE mg/dL (<2.0) 05/12/20 15:40 Ur Leukocyte Esterase LARGE (NEGATIVE) H 05/12/20 15:40 Urine WBC (Auto) >182 /HPF 05/12/20 15:40 Urine RBC (Auto) 20 /HPF 05/12/20 15:40 Urine Bacteria (Auto) 3+ /HPF 05/12/20 15:40 Urine Mucus (Auto) MOD /LPF 05/12/20 15:40 Urine Ascorbic Acid NEGATIVE (NEGATIVE) 05/12/20 15:40 Impressions: Chest X-Ray 05/12/20 14:16 IMPRESSION: No acute findings. 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 Bronchitis appears to have resolved. Goals: Resolution of urinary infection. It is hard to know what measures to take to try and prevent this. It is hard to know if more aggressive stomach care or emptying the urostomy bag more frequently would make a difference. Time Spent: Greater than 30 Minutes Stroke Is this a Stroke Patient?: No Acute Heart Failure Is this a Heart Failure Patient?: No
[2020-05-15] MEDS: DOXYCYCLINE HYCLATE 100 MG TABLET PO SCH (10:58)
[2020-05-15] MEDS: CALCITRIOL 0.25 MCG CAPSULE PO SCH (10:58)
[2020-05-15] MEDS: ISOSORBIDE DINITRATE 20 MG TABLET PO SCH (10:58)
[2020-05-15] MEDS: MAGNESIUM OXIDE 400 MG TABLET PO SCH (10:59)
[2020-05-15] MEDS: NICOTINE 14 MG/24 HR PATCH.TD24 TD SCH (11:01)
[2020-05-15 12:47] VITALS: BP 90/50
== END 2020-05-15 13:30 | disposition home or self-care (01) | DRG 689 ==
LOC: ER 13:43 → EH 17:05 → 4W 05-13 02:30
PROVIDERS: ADMIT Hospitalist; ATTEND Hospitalist
PROC: 5A1D70Z Performance of Urinary Filtration, Intermittent, Less than 6 Hours Per Day (ICD-10-PCS; principal; 2020-05-14)
DX: N39.0 Urinary tract infection, site not specified (principal); J96.21 Acute and chronic respiratory failure with hypoxia; N18.6 End stage renal disease; J44.0 Chronic obstructive pulmonary disease with (acute) lower respiratory infection; I12.0 Hypertensive chronic kidney disease with stage 5 chronic kidney disease or end stage renal disease; J20.9 Acute bronchitis, unspecified; D63.1 Anemia in chronic kidney disease; E78.5 Hyperlipidemia, unspecified; Z66 Do not resuscitate; B96.1 Klebsiella pneumoniae [K. pneumoniae] as the cause of diseases classified elsewhere; B96.4 Proteus (mirabilis) (morganii) as the cause of diseases classified elsewhere; B96.20 Unspecified Escherichia coli [E. coli] as the cause of diseases classified elsewhere; I25.10 Atherosclerotic heart disease of native coronary artery without angina pectoris; I73.9 Peripheral vascular disease, unspecified; M10.9 Gout, unspecified; F17.210 Nicotine dependence, cigarettes, uncomplicated; W19.XXXA Unspecified fall, initial encounter; F03.90 Unspecified dementia, unspecified severity, without behavioral disturbance, psychotic disturbance, mood disturbance, and anxiety; Z96.641 Presence of right artificial hip joint; Z99.2 Dependence on renal dialysis; Z79.899 Other long term (current) drug therapy; Z85.51 Personal history of malignant neoplasm of bladder; Z93.6 Other artificial openings of urinary tract status; Z85.048 Personal history of other malignant neoplasm of rectum, rectosigmoid junction, and anus; Z85.46 Personal history of malignant neoplasm of prostate; Z88.3 Allergy status to other anti-infective agents; Z95.1 Presence of aortocoronary bypass graft; Z99.81 Dependence on supplemental oxygen
CPT/HCPCS: 36415; 71045; 80053; 80069; 81001; 82803; 82962; 83605; 83735; 85025; 85610; 87040; 87086; 87088; 87186; 93005; 93010; 96372; 99285; J0456; J0692; J1644; J3490; J7050; J7060; J7614